=== PATIENT | female | born 1955 | race Caucasian/White ===

== ENCOUNTER 2016-03-02 10:25 | Inpatient (IN) ==
[2016-03-02] MEDS ORDERED: Aspirin 325 MG TABLET PO ONE (11:05)
--- NOTE | 2016-03-02 11:08 | Emergency Department Note ---
Disposition Clinical Impression: Diabetes, CKD (chronic kidney disease), Obesity, Hypothyroid, Hyponatremia, Chest pain Disposition: Admitted As Inpatient Condition: Fair Referrals: Mauro Dockery MD [Primary Care Provider] - Forms: ED Satisfaction Letter Time of Disposition: 13:18 General Adult HPI - General Chief complaint: ED Weakness Stated complaint: High blood sugar Time Seen by Provider: 03/02/16 10:57 Source: patient Mode of arrival: ambulatory Limitations: no limitations Nursing Notes Reviewed: Yes Vital Signs Reviewed: Yes - History of Present Illness HPI Narrative: This is a 61-year-old female who presents with high blood sugars and complaints of her hands drawling up. Patient states she feels blurry with her vision. Patient states she is having some mild chest pain. Patient states she is mostly concerned with her joints drawling up and having pain. Patient is not running a fever. Patient states she has CHF and she always swells but is not as bad as it usually is. Pain Scale: 5 - Related Data Home Medications Medication Instructions Recorded Confirmed Albuterol Neb [AccuNeb] 1.25 mg IH QID PRN 09/12/14 08/11/15 Cyclobenzaprine [Flexeril] 10 mg PO TID 09/12/14 08/11/15 Docusate [Colace] 100 mg PO TID 09/12/14 08/11/15 Doxepin [Sinequan] 50 mg PO HS 09/12/14 08/11/15 Gabapentin [Neurontin] 300 mg PO QID 09/12/14 08/11/15 Insulin ASPART [NovoLOG] 0 unit SQ QID 09/12/14 08/11/15 Insulin Glargine,Hum.rec.anlog 75 unit SQ BID 09/12/14 08/11/15 [Lantus Solostar] Levothyroxine Sodium 200 mcg PO QAM 09/12/14 08/11/15 Meclizine [Antivert] 25 mg PO TID PRN 09/12/14 08/11/15 Rosuvastatin Calcium [Crestor] 10 mg PO HS 09/12/14 08/11/15 Allopurinol [Zyloprim 100 MG] 300 mg PO DAILY 03/22/15 08/11/15 Citalopram Hydrobromide [Celexa] 40 mg PO QPM 03/22/15 08/11/15 ClonazePAM [Klonopin] 1 mg PO HS 03/22/15 08/11/15 DiphenhydraMINE [Benadryl] 25 mg PO TID 03/22/15 08/11/15 Exenatide Microspheres [Bydureon 2 mg SQ QWEEK 03/22/15 08/11/15 Pen] Fluticasone Propionate Nasal 50 mcg NS DAILY PRN 03/22/15 08/11/15 [Flonase] Lidocaine Patch [Lidoderm 5% patch] 1 patch TP DAILY PRN 03/22/15 08/11/15 Nitroglycerin [Nitrostat] 0.4 mg SL AD PRN 03/22/15 08/11/15 Omeprazole [PriLOSEC] 20 mg PO HS 03/22/15 08/11/15 Omeprazole [PriLOSEC] 40 mg PO QAM 03/22/15 08/11/15 Promethazine [Phenergan] 25 mg PO TID 03/22/15 08/11/15 Isosorbide MONOnitrate (24 HR) 30 mg PO QPM 03/23/15 08/11/15 [Imdur] Acetaminophen [Tylenol] 1,000 mg PO TID 06/21/15 08/11/15 Metoprolol XL (24 HR) Succ [Toprol 25 mg PO DAILY 07/31/15 08/11/15 Xl] Warfarin [Coumadin] 4 mg PO Q48H 07/31/15 08/11/15 Warfarin [Coumadin] 5 mg PO Q48H 07/31/15 08/11/15 Previous Rx's Medication Instructions Recorded Benzonatate [Tessalon] 200 mg PO TID PRN #30 capsule 08/06/15 GuaiFENesin ER [Mucinex] 600 mg PO BID PRN #40 tbbp.12hr 08/06/15 Magnesium Oxide [Mag-Ox] 400 mg PO BID #60 tablet 08/06/15 Tiotropium [Spiriva] 18 mcg IH 07 #30 capsule 08/06/15 Furosemide [Lasix] 40 mg PO DAILY #30 tablet 08/13/15 Allergies Allergy/AdvReac Type Severity Reaction Status Date / Time aspirin Allergy Hives Verified 08/11/15 14:42 cephalexin [From Keflex] Allergy Difficulty Verified 08/11/15 14:42 Breathing codeine Allergy Hypertensio Verified 08/11/15 14:42 n Cortisone Allergy See Verified 10/02/15 00:56 Comments hydrocortisone Allergy Hypertensio Verified 08/11/15 14:42 n ibuprofen Allergy Hives Verified 08/11/15 14:42 Iodinated Contrast Media - Allergy See Verified 08/11/15 14:42 Oral and Comments [Iodinated Contrast Media - IV Dye] lidocaine [From Xylocaine] Allergy See Verified 08/11/15 14:42 Comments loratadine [From Claritin] Allergy Hives Verified 08/11/15 14:42 methylprednisolone Allergy Hypertensio Verified 08/11/15 14:42 [From Solu-Medrol] n Penicillins Allergy See Verified 08/11/15 14:42 Comments prednisone Allergy Hypertensio Verified 08/11/15 14:42 n Procaine [From Novocain] Allergy See Verified 08/11/15 14:42 Comments propoxyphene [From Darvon] Allergy See Verified 08/11/15 14:42 Comments pseudoephedrine Allergy Hives Verified 08/11/15 14:42 [From Sudafed] ropinirole [From Requip] Allergy See Verified 08/11/15 14:42 Comments All systems ED: reviewed and negative except as stated. Constitutional: Reports: weakness. Denies: fever, chills, weight change Eyes: Denies: eye pain, eye discharge, vision change ENT ED: Denies: ear pain, throat pain, dental pain, hearing loss, epistaxis, congestion, dysphagia Cardiovascular: Reports: chest pain, edema. Denies: palpitations, dyspnea on exertion, syncope Respiratory: Denies: cough, dyspnea, wheezes, hemoptysis, stridor Gastrointestinal: Denies: abdominal pain, nausea, vomiting, diarrhea, constipation, hematemesis, melena, hematochezia Genitourinary: Denies: dysuria, frequency, hematuria, discharge Musculoskeletal: Reports: arthralgia (pt states her hands are drawling and she is having pain), myalgia. Denies: back pain, neck pain Integumentary: Denies: rash, abrasion, lesions Neurological: Denies: headache, numbness, paresthesias, confusion, abnormal gait , vertigo Psychiatric: Denies: anxiety, depression, suicidal thoughts, homicidal thoughts , auditory hallucinations, visual hallucinations Endocrine: Reports: other (blood sugars are elevated). Denies: fatigue Hematological/Lymphatic: Denies: easy bleeding, easy bruising Allergic/Immunologic: Denies: facial swelling, urticaria Past Medical History - Past Medical History Attestation: Yes The following information was validated with the patient. Source: patient Medical history: Reports: arthritis, CHF, COPD, DVT, diabetes, GERD, hyperlipidemia, hypertension, migraine, osteoporosis, renal disease, thyroid disease, other Surgical history: Reports: hysterectomy, other Psychiatric history: Reports: anxiety, depression [employer] history: Reports: bilateral 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 - Social History Smoking Status: Former smoker Smokeless Tobacco Status: No Alcohol use: Reports: rarely Drug use: Reports: none Physical Exam - General Limitations: no limitations General appearance: alert, in no apparent distress, obese - Head Head exam: atraumatic, normocephalic, normal inspection - Eye Eye exam: Present: normal appearance, PERRL, EOMI - ENT ENT exam: normal exam, normal oropharynx, mucous membranes moist - Expanded ENT Exam External ear exam: Present: normal external inspection Mouth exam: Present: normal external inspection Teeth exam: Present: normal inspection Throat exam: Present: normal inspection - Neck Neck exam: Present: normal inspection, full ROM, trachea midline - Chest Chest inspection: Present: normal inspection, symmetric chest wall rise - Respiratory Respiratory exam: Present: normal lung sounds bilaterally - Cardiovascular Cardiovascular exam: Present: regular rate, normal rhythm, normal heart sounds - Abdominal Exam Abdominal exam: Present: soft, Non-Tender. Absent: tenderness, distention, guarding, rebound, rigidity - Extremities Exam Extremities exam: Present: normal inspection, full ROM, pedal edema. Absent: tenderness - Expanded Upper Extremity Exam Shoulder exam: Present: normal inspection, full ROM Arm exam: Present: normal inspection, full ROM Elbow exam: Present: normal inspection, full ROM Forearm/Wrist exam: Present: normal inspection, full ROM Hand exam: Present: normal inspection, full ROM Vascular exam: Normal: capillary refill, radial pulse - Expanded Lower Extremity Exam Hip/Pelvis exam: Present: normal inspection, full ROM Upper leg exam: Present: normal inspection, full ROM Knee exam: Present: normal inspection, full ROM Lower leg exam: Present: normal inspection, full ROM, swelling Ankle exam: Present: normal inspection, full ROM, swelling Foot/toe exam: Present: normal inspection, full ROM, swelling Neurovascular/Tendon exam: Absent: motor deficit, sensory deficit, tendon deficit - Back Exam Back exam: Present: normal inspection, full ROM. Absent: tenderness - Neurological Exam Neurological exam: Present: alert, oriented X3 - Expanded Neurological Exam Patient oriented to: Present: person, place, time Coma Scale Eye Opening: Spontaneous Coma Scale Motor Response: Obeys Commands Coma Scale Verbal Response: Oriented Coma Scale Total: 15 - Psychiatric Psychiatric exam: Present: normal affect, normal mood - Skin Skin exam: Present: warm, dry, intact, normal color Course - Consultations Consultation #1: I spoke with Dr. Artemio reyes to admit. Time: 13:29 Vital Signs Temperature 97.4 F L 03/02/16 10:28 Pulse Rate 76 03/02/16 10:28 Respiratory Rate 16 03/02/16 10:28 Blood Pressure 104/65 03/02/16 10:28 O2 Sat by Pulse Oximetry 95 03/02/16 10:28 Temperature 97.4 F L 03/02/16 10:28 Pulse Rate 76 03/02/16 10:28 Respiratory Rate 16 03/02/16 10:28 Blood Pressure 104/65 03/02/16 10:28 O2 Sat by Pulse Oximetry 95 03/02/16 10:28 Oxygen Delivery Oxygen Delivery Room Air Medical Decision Making - Medical Records Medical records reviewed: Yes I reviewed the patient's medical records. - Lab Data Lab results reviewed: Yes I reviewed the patient's lab results. Result diagrams: 03/02/16 11:23 03/02/16 11:23 Lab Results 03/02/16 03/02/16 03/02/16 Range/Units 10:36 11:23 11:23 WBC 7.6 (4.3-11.1) K/mcL RBC 3.80 L (3.82-4.97) M/mcL Hgb 11.1 L (11.5-15.4) g/dL Hct 34.7 L (35.3-44.9) % MCV 91.3 (83.0-100.0) fL MCH 29.2 (28.0-33.3) pg MCHC 32.0 (31.6-35.5) g/dL RDW 16.1 H (11.5-14.5) % Plt Count 286 (140-400) K/mcL MPV 10.3 (9.4-12.4) fL Immature Gran % 0.7 (0-4) % Seg Neutrophils % 52.9 % Lymphocytes % 36.4 % Monocytes % 6.1 % Eosinophils % 3.2 % Basophils % 0.7 % Neutrophils # 4.0 (1.6-8.9) K/mcL Lymphocytes # 2.8 (0.6-4.6) K/mcL Monocytes # 0.5 (0.0-1.3) K/mcL Eosinophils # 0.2 (0.0-0.6) K/mcL Basophils # 0.1 (0.0-0.2) K/mcL PT 21.2 H (9.4-12.1) Seconds INR 1.9 APTT 39.2 H (26.0-36.0) Seconds Sodium (136-145) mEq/L Potassium (3.5-4.5) mEq/L Chloride (98-109) mEq/L Carbon Dioxide (19-29) mEq/L BUN (7-20) mg/dL Creatinine (0.57-1.11) mg/dL Est GFR ( Amer) (> 60) Est GFR (Non-Af Amer) (> 60) BUN/Creatinine Ratio (6-26) Glucose (70-99) mg/dL POC Glucose 432 H* (58-89) Calculated Osmolality (280-300) Calcium (8.6-10.8) mg/dL Total Bilirubin (0.2-1.2) mg/dL Direct Bilirubin (0.0-0.5) mg/dL Indirect Bilirubin (0.0-1.2) mg/dL AST (5-34) Units/L ALT (0-55) Units/L Alkaline Phosphatase (38-126) Units/L Troponin I (0-0.03) ng/mL B-Natriuretic Peptide (0-100) pg/mL Serum Total Protein (6.0-8.3) g/dL Albumin (3.5-5.0) g/dL Globulin (2.4-3.5) g/dL Albumin/Globulin Ratio (1.1-2.2) TSH (0.350-4.840) mcIU/mL 03/02/16 03/02/16 03/02/16 Range/Units 11:23 11:23 11:23 WBC (4.3-11.1) K/mcL RBC (3.82-4.97) M/mcL Hgb (11.5-15.4) g/dL Hct (35.3-44.9) % MCV (83.0-100.0) fL MCH (28.0-33.3) pg MCHC (31.6-35.5) g/dL RDW (11.5-14.5) % Plt Count (140-400) K/mcL MPV (9.4-12.4) fL Immature Gran % (0-4) % Seg Neutrophils % % Lymphocytes % % Monocytes % % Eosinophils % % Basophils % % Neutrophils # (1.6-8.9) K/mcL Lymphocytes # (0.6-4.6) K/mcL Monocytes # (0.0-1.3) K/mcL Eosinophils # (0.0-0.6) K/mcL Basophils # (0.0-0.2) K/mcL PT (9.4-12.1) Seconds INR APTT (26.0-36.0) Seconds Sodium 130 L (136-145) mEq/L Potassium 3.3 L (3.5-4.5) mEq/L Chloride 93 L (98-109) mEq/L Carbon Dioxide 20 (19-29) mEq/L BUN 33 H (7-20) mg/dL Creatinine 2.09 H (0.57-1.11) mg/dL Est GFR ( Amer) 29 L (> 60) Est GFR (Non-Af Amer) 24 L (> 60) BUN/Creatinine Ratio 16 (6-26) Glucose 256 H (70-99) mg/dL POC Glucose (58-89) Calculated Osmolality 286 (280-300) Calcium 9.8 (8.6-10.8) mg/dL Total Bilirubin 0.3 (0.2-1.2) mg/dL Direct Bilirubin 0.2 (0.0-0.5) mg/dL Indirect Bilirubin 0.1 (0.0-1.2) mg/dL AST 12 (5-34) Units/L ALT 11 (0-55) Units/L Alkaline Phosphatase 153 H (38-126) Units/L Troponin I 0.04 H* (0-0.03) ng/mL B-Natriuretic Peptide 83 (0-100) pg/mL Serum Total Protein 8.1 (6.0-8.3) g/dL Albumin 3.0 L (3.5-5.0) g/dL Globulin 5.1 H (2.4-3.5) g/dL Albumin/Globulin Ratio 0.6 L (1.1-2.2) TSH 47.101 H (0.350-4.840) mcIU/mL - Radiology Data Radiology results reviewed: Yes I reviewed the patient's radiology results. - EKG Data EKG #1 EKG attestation: Yes I reviewed and interpreted this EKG. EKG shows normal: sinus rhythm Rate: normal Rhythm: NSR [place]/QRS: normal, RBBB When compared to previous EKG there are: no significant changes Interpretation: nonspecific ST-T wave changes
[2016-03-02] MEDS ORDERED: 0.9 % Sodium Chloride 500 ML IV SCH (11:15)
[2016-03-02 11:30] LABS: Basophils # 0.1 K/mcL (0.0-0.2); Basophils % 0.7 %; Eosinophils # 0.2 K/mcL (0.0-0.6); Eosinophils % 3.2 %; Hematocrit 34.7 % (35.3-44.9); Hemoglobin 11.1 g/dL (11.5-15.4); Immature Granulocytes % 0.7 % (0-4); Lymphocytes # 2.8 K/mcL (0.6-4.6); Lymphocytes % 36.4 %; Mean Corpuscular Hemoglobin 29.2 pg (28.0-33.3); Mean Corpuscular Volume 91.3 fL (83.0-100.0); Mean Platelet Volume 10.3 fL (9.4-12.4); Monocytes # 0.5 K/mcL (0.0-1.3); Monocytes % 6.1 %; Platelet Count 286 K/mcL (140-400); Red Cell Distribution Width 16.1 % (11.5-14.5); Segmented Neutrophils % 52.9 %
[2016-03-02 11:38] LABS: INR 1.9; Prothrombin Time 21.2 Seconds (9.4-12.1)
[2016-03-02 11:41] LABS: Activated Partial Thrombo Time 39.2 Seconds (26.0-36.0)
[2016-03-02 11:45] LABS: Albumin/Globulin Ratio 0.6 (1.1-2.2); Bilirubin,Direct 0.2 mg/dL (0.0-0.5); Bilirubin,Indirect 0.1 mg/dL (0.0-1.2); Bilirubin,Total 0.3 mg/dL (0.2-1.2); Calcium 9.8 mg/dL (8.6-10.8); Globulin 5.1 g/dL (2.4-3.5); Potassium 3.3 mEq/L (3.5-4.5); Total Protein 8.1 g/dL (6.0-8.3)
[2016-03-02 12:06] LABS: Thyroid Stimulating Hormone 47.101 mcIU/mL (0.350-4.840)
[2016-03-02] MEDS ORDERED: Levothyroxine Sodium 200 MCG VIAL IVP ONE (15:02)
--- NOTE | 2016-03-02 15:02 | Internal Med History&Physical ---
<Lowell Boucher - Last Filed: 03/02/16 15:42> Date of Encounter: 03/02/16 Time of Encounter: 15:02 Assessment and Plan (1) Myxedema coma Current visit: Yes Status: Acute Suspected, possibly early stage of myxedema coma with decreased mentation, puffy face, edematous extremities, elevated TSH and low normal free T4/T3, hyponatremia, hypothermia, bradycardia and hypotension, cortisol level ordered, its cause can be recent UTI and/or cold weather, will start her on IV T4/T3 and IV solu cortef, check free T3/T4 level in AM and closely monitor her clinical course. (2) Elevated troponin Current visit: Yes Status: Acute Likely demand ischemia in a setting of myedema coma, no acute ischemic change in EKG, no active chest pain, will trend it and also obtain echo. (3) Hyponatremia Current visit: Yes Status: Acute Likely 2/2 myxedema coma, decreased free water excretion from decrease renal function (acute on CKD III), treat underlying cause, correct it slowly. (4) Acute worsening of stage 3 chronic kidney disease Current visit: Yes Status: Acute Likely 2/2 decreased renal blood flow from myxedema coma, treat underlying cause. Avoid nephrotoxic agent, hold lasix for now. (5) DM (diabetes mellitus), type 2, uncontrolled Current visit: Yes Status: Acute At home usually her sugar is between 300 to 500, last a1c was more than 10, will put her on high SSI and con't basal dosage of lantus. Qualifiers: Qualified Code(s): E11.65 - Type 2 diabetes mellitus with hyperglycemia (6) Hx of deep venous thrombosis Current visit: Yes Status: Acute Con't home dosage of coumadin, subtherapeutic, recheck in AM. (7) Morbid obesity with BMI of 60.0-69.9, adult Current visit: Yes Status: Acute Diet and lifestyle modification. (8) DVT prophylaxis Current visit: Yes Status: Acute Coumadin. (9) Hypokalemia Current visit: Yes Status: Acute Replace and check mag/potassium in AM. Internal Medicine - H&P: HPI Chief complaint: Elevated blood sugar level Admitted From: Emergency Dept History of present illness: Ms. Mars is a 61 year old female with hx of uncontrolled DM II, DVT on chronic coumadin therapy and CKD III, who was having elevated blood glucose level of more than 500 at home therefore her brought her to the ER. In the ER she was found to have hyponatremia of 130, SCr of 2.09, GFR 24 (worse than her baseline CKD III), elevated troponin and TSH of 47. She was bradycardic to mid 60s and hypotensive of 104/65, temp of 97.4. When I spoke to her in the room, he noticed her face was puffy and slightly she is edematous compared to few days ago, also decreased mentation and slow response that are unusual for her. Pt states that she had UTI 3 weeks ago and she finished abx but she still thinks that other infection is going in her body currently. Past Med Surg Social Fam HX - Past Medical History Medical history: arthritis, CHF, COPD, DVT, diabetes, GERD, hyperlipidemia, hypertension, migraine, osteoporosis, renal disease, thyroid disease, other Psychiatric history: anxiety, depression - Past Surgical History Surgical History: hysterectomy, other - Social History Smoking Status: Former smoker Smokeless Tobacco Status: No Alcohol use: rarely Drug use: none - Family History Mother Living Status: Hx Family Cardiac Disorders: Yes Hx Family Cancer: Yes Hx Family Endocrine Disorder: Yes Internal Medicine - H&P: Meds Albuterol Neb [AccuNeb] 1.25 mg IH QID PRN 09/12/14 [History] Cyclobenzaprine [Flexeril] 10 mg PO TID 09/12/14 [History] Docusate [Colace] 100 mg PO TID 09/12/14 [History] Doxepin [Sinequan] 50 mg PO HS 09/12/14 [History] Gabapentin [Neurontin] 300 mg PO QID 09/12/14 [History] Insulin ASPART [NovoLOG] 32 - 40 unit SQ QID 09/12/14 [History] Insulin Glargine,Hum.rec.anlog [Lantus Solostar] 75 unit SQ BID 09/12/14 [ History] Levothyroxine Sodium 200 mcg PO QAM 09/12/14 [History] Meclizine [Antivert] 25 mg PO TID PRN 09/12/14 [History] Rosuvastatin Calcium [Crestor] 10 mg PO HS 09/12/14 [History] Allopurinol [Zyloprim 100 MG] 300 mg PO DAILY 03/22/15 [History] Citalopram Hydrobromide [Celexa] 40 mg PO QPM 03/22/15 [History] ClonazePAM [Klonopin] 1 mg PO HS 03/22/15 [History] DiphenhydraMINE [Benadryl] 25 mg PO TID 03/22/15 [History] Exenatide Microspheres [Bydureon Pen] 2 mg SQ QWEEK 03/22/15 [History] Fluticasone Propionate Nasal [Flonase] 50 mcg NS DAILY PRN 03/22/15 [History] Lidocaine Patch [Lidoderm 5% patch] 1 patch TP DAILY PRN 03/22/15 [History] Nitroglycerin [Nitrostat] 0.4 mg SL AD PRN 03/22/15 [History] Omeprazole [PriLOSEC] 20 mg PO HS 03/22/15 [History] Omeprazole [PriLOSEC] 40 mg PO QAM 03/22/15 [History] Promethazine [Phenergan] 25 mg PO TID 03/22/15 [History] Isosorbide MONOnitrate (24 HR) [Imdur] 30 mg PO QPM 03/23/15 [History] Acetaminophen [Tylenol] 1,000 mg PO TID 06/21/15 [History] Metoprolol XL (24 HR) Succ [Toprol Xl] 25 mg PO DAILY 07/31/15 [History] Warfarin [Coumadin] 4 mg PO Q48H 07/31/15 [History] Warfarin [Coumadin] 5 mg PO Q48H 07/31/15 [History] GuaiFENesin ER [Mucinex] 600 mg PO BID PRN #40 tbbp.12hr 08/06/15 [Rx] Furosemide [Lasix] 20 mg PO QPM 03/02/16 [History] Furosemide [Lasix] 40 mg PO QAM 03/02/16 [History] Allergies aspirin Allergy (Verified 08/11/15 14:42) Hives cephalexin [From Keflex] Allergy (Verified 08/11/15 14:42) Difficulty Breathing codeine Allergy (Verified 08/11/15 14:42) Hypertension Cortisone Allergy (Verified 10/02/15 00:56) See Comments "made my arm tingle & didn't help my back pain" hydrocortisone Allergy (Verified 08/11/15 14:42) Hypertension ibuprofen Allergy (Verified 08/11/15 14:42) Hives Iodinated Contrast Media - Oral and [Iodinated Contrast Media - IV Dye] Allergy (Verified 08/11/15 14:42) See Comments lidocaine [From Xylocaine] Allergy (Verified 08/11/15 14:42) See Comments loratadine [From Claritin] Allergy (Verified 08/11/15 14:42) Hives methylprednisolone [From Solu-Medrol] Allergy (Verified 08/11/15 14:42) Hypertension Penicillins Allergy (Verified 08/11/15 14:42) See Comments prednisone Allergy (Verified 08/11/15 14:42) Hypertension Procaine [From Novocain] Allergy (Verified 08/11/15 14:42) See Comments propoxyphene [From Darvon] Allergy (Verified 08/11/15 14:42) See Comments pseudoephedrine [From Sudafed] Allergy (Verified 08/11/15 14:42) Hives ropinirole [From Requip] Allergy (Verified 08/11/15 14:42) See Comments All Systems PM: A 10-system review of systems was performed and is negative for pertinent findings except as documented above in the HPI. Review of systems: Pt denies BRICE, fever/chill, chest pain, SOB, productive cough, nausea/emesis, abdominal pain, constipation, diarrhea or dysuria. - Constitutional Vitals: Temp Pulse Resp BP Pulse Ox 97.4 F L 76 15 145/68 95 03/02/16 10:28 03/02/16 10:28 03/02/16 14:58 03/02/16 14:58 03/02/16 10:28 General appearance: Present: cooperative, mild distress, A&O X 3, answers questions appropriately - Head Head exam: Present: atraumatic, normocephalic - Eye Eye exam: Present: PERRL, conjuntiva pink, sclera anicteric Pupils: Present: PERRL - Neck Neck exam general surgery: Present: supple, trachea midline. Absent: lymphadenopathy - Respiratory Respiratory exam: Present: CTAB. Absent: accessory muscle use, rales, rhonchi, wheezes - Cardiovascular Cardiovascular exam: Present: RRR, +S1, +S2. Absent: diastolic murmur, gallop, rubs, systolic murmur - GI/Abdominal GI/Abdominal exam: Present: normal bowel sounds, soft, no peritoneal signs. Absent: distended, tenderness - Extremities Exam Extremities exam: Present: pedal edema (mild non-pitting b/l), warm, radial pulses palpable and symetrical. Absent: calf tenderness, cyanotic - Neurological Exam Neurological exam: Present: alert (somewhat), CN II-XII intact, oriented X3, no focal deficits. Absent: pronater drift, facial droop, speech deficit - Skin Skin exam: Present: dry, intact Internal Med - H&P Results - Labs CBC & Chem 7: 03/02/16 11:23 03/02/16 11:23 <Milan Ulloa - Last Filed: 03/03/16 14:42> Date of Encounter: 03/02/16 Internal Medicine - H&P: HPI History of present illness: Ms. Mars is a 61 year old female All Systems PM: A 10-system review of systems was performed and is negative for pertinent findings except as documented above in the HPI. - Constitutional Vitals: Temp Pulse Resp BP Pulse Ox 98.2 F 77 16 109/90 95 03/03/16 11:57 03/03/16 11:57 03/03/16 11:57 03/03/16 11:57 03/03/16 11:57 Internal Med - H&P Results - Labs CBC & Chem 7: 03/03/16 00:13 03/03/16 00:13 Labs: Short CBC 03/03/16 Range/Units 00:13 WBC 6.2 (4.3-11.1) K/mcL Hgb 10.4 L (11.5-15.4) g/dL Hct 31.6 L (35.3-44.9) % Plt Count 267 (140-400) K/mcL Neutrophils # 4.9 (1.6-8.9) K/mcL BMP 03/03/16 00:13 Sodium 129 L Potassium 4.9 H D Chloride 93 L Carbon Dioxide 23 BUN 32 H Creatinine 2.03 H Glucose 474 H Calcium 9.0 Cardiac Enzymes 03/03/16 Range/Units 00:13 Troponin I 0.03 (0-0.03) ng/mL Liver Function 03/03/16 Range/Units 00:13 Total Bilirubin 0.4 (0.2-1.2) mg/dL AST 11 (5-34) Units/L ALT 10 (0-55) Units/L Alkaline Phosphatase 122 (38-126) Units/L Albumin 2.5 L (3.5-5.0) g/dL Urine 03/03/16 Range/Units 11:55 Urine Color Yellow (Yellow) Urine Clarity Turbid A (Clear) Urine pH 6.0 (5.0-8.0) pH Units Ur Specific [place] 1.024 (1.010-1.025) Urine Protein >=300 H (Neg-Trace) mg/dL Urine Glucose (UA) >=1000 H (Normal) mg/dL - Attending Attestation I examined this patient and my medical decision-making was reviewed with the Resident Physician on 03/02/16. I agree with the documented findings, disposition and treatment plan as described except to the extent set forth below. Ms. Mars is a 61y/o female with history of insulin req DM and hypothyroidism brought to ED due to mental status changes and hyperglycemia. Blood sugars were markedly high at home and she did take larger amounts of coverage. She was evaluated in ED and was initially hyperglycemia but then became hypoglycemic. Labs were abnormal - especially thyroid function. She was admitted for evaluation and treatment. Currently she is alert but still seems somnolent. She denies pain or dyspnea. Fatigued. Exam Obese female. Alert. Comfortable Facial puffy Heart reg Lungs diminished but clear Abd soft and nontender Edema present I/P 1. Probable myxedema versus hypoglycemia - IV synthroid given. Continue monitor thyroid function and blood sugars 2. Diabetes 3. Morbid obesity Further diagnoses and plan as above.
[2016-03-02] MEDS ORDERED: Liothyronine Sodium 10 MCG/ML IVP ONE (15:06)
[2016-03-02] MEDS ORDERED: Naloxone 0.4 MG/ML INJ IVP PRN (15:11)
[2016-03-02 15:12] LABS: Triiodothyronine (T3) Free 1.54 pg/mL (1.71-3.71)
[2016-03-02] MEDS ORDERED: Levothyroxine Sodium 100 MCG VIAL IVP SCH (15:15)
[2016-03-02] MEDS ORDERED: Liothyronine Sodium 10 MCG/ML IVP SCH (15:15)
[2016-03-02] MEDS ORDERED: D5% in Water 1,000 ML IV PRN (15:35)
[2016-03-02] MEDS ORDERED: Dextrose Gel 15 GM PO PRN ×2 (15:35)
[2016-03-02] MEDS ORDERED: *HR* Dextrose 50 % in Water (Syg) 50 ML SYRINGE IVP PRN (15:35)
[2016-03-02] MEDS: Insulin LISPRO 300 UNITS/3 ML VIAL SQ SCH ×2 (17:35→19:42)
[2016-03-02] MEDS: Hydrocortisone Sodium Succ 100 MG/2 ML VIAL IVP SCH ×2 (17:35→19:29)
[2016-03-02] MEDS ORDERED: *HR* Warfarin 4 MG TABLET PO SCH (18:00)
[2016-03-02] MEDS: clonazePAM 1 MG TABLET PO SCH (19:39)
[2016-03-02] MEDS: Insulin DETEMIR 100 UNIT/ML X5UNITS SQ SCH (19:40)
[2016-03-03 00:27] LABS: Basophils % 0.3 %; Eosinophils % 0.5 %; Hematocrit 31.6 % (35.3-44.9); Hemoglobin 10.4 g/dL (11.5-15.4); Immature Granulocytes % 0.6 % (0-4); Lymphocytes # 1.1 K/mcL (0.6-4.6); Lymphocytes % 17.6 %; Mean Corpuscular HGB Conc 32.9 g/dL (31.6-35.5); Mean Corpuscular Hemoglobin 29.6 pg (28.0-33.3); Mean Platelet Volume 10.8 fL (9.4-12.4); Monocytes # 0.2 K/mcL (0.0-1.3); Monocytes % 2.9 %; Neutrophils # 4.9 K/mcL (1.6-8.9); Platelet Count 267 K/mcL (140-400); Red Blood Count 3.51 M/mcL (3.82-4.97); Red Cell Distribution Width 16.1 % (11.5-14.5); Segmented Neutrophils % 78.1 %
[2016-03-03 00:32] LABS: INR 2.1; Prothrombin Time 22.6 Seconds (9.4-12.1)
[2016-03-03] MEDS: Hydrocortisone Sodium Succ 100 MG/2 ML VIAL IVP SCH (00:36)
[2016-03-03 00:40] LABS: Hemoglobin A1C 11.8 %
[2016-03-03 00:58] LABS: Albumin 2.5 g/dL (3.5-5.0); Albumin/Globulin Ratio 0.6 (1.1-2.2); Bilirubin,Total 0.4 mg/dL (0.2-1.2); Globulin 4.5 g/dL (2.4-3.5); Potassium 4.9 mEq/L (3.5-4.5)
[2016-03-03 01:04] LABS: Triiodothyronine (T3) Free 2.12 pg/mL (1.71-3.71)
[2016-03-03] MEDS ORDERED: Albuterol Neb 1.25 MG/3 ML VIAL IH PRN (07:34)
--- NOTE | 2016-03-03 07:34 | Internal Med Progress Note ---
<Lowell Boucher - Last Filed: 03/03/16 10:04> Date of Encounter: 03/03/16 Time of Encounter: 07:34 - Assessment and plan (1) Myxedema coma Current Visit: Yes Status: Acute Assessment and plan: Suspected, possibly early stage of myxedema coma with decreased mentation, puffy face, edematous extremities, elevated TSH and low normal free T4/T3, hyponatremia, hypothermia, bradycardia and hypotension, T4/T3 levels are now normal, switch from IV to PO synthroid, stop T3 and solu-cortef, clinically significantly improved. (2) Elevated troponin Current Visit: Yes Status: Acute Assessment and plan: Likely demand ischemia in a setting of myedema coma, no acute ischemic change in EKG, no active chest pain, obtain echo. (3) Hyponatremia Current Visit: Yes Status: Acute Assessment and plan: Likely 2/2 myxedema coma, decreased free water excretion from decrease renal function (acute on CKD III), treat underlying cause, resume lasix home dosage, might help to diurese and improve kidney function tmw. (4) Acute worsening of stage 3 chronic kidney disease Current Visit: Yes Status: Acute Assessment and plan: Likely 2/2 decreased renal blood flow from myxedema coma, treat underlying cause. Avoid nephrotoxic agent, decreased free water excretion from decrease renal function (acute on CKD III), treat underlying cause, resume lasix home dosage, might help to diurese and improve kidney function tmw. (5) DM (diabetes mellitus), type 2, uncontrolled Current Visit: Yes Status: Acute Assessment and plan: Out of control, a1c was more than 10, con't basal and SSI but I added bolus before each meal as well. Qualifiers: Qualified Code(s): E11.65 - Type 2 diabetes mellitus with hyperglycemia (6) Hx of deep venous thrombosis Current Visit: Yes Status: Acute Assessment and plan: Con't coumadin. (7) Morbid obesity with BMI of 60.0-69.9, adult Current Visit: Yes Status: Acute Assessment and plan: Diet and lifestyle modification. (8) DVT prophylaxis Current Visit: Yes Status: Acute Assessment and plan: Coumadin. - Subjective Interval history: Pt seen and examined, clinically doing much better, not confused, improved puffiness of face, eating breakfast comfortably. - Constitutional Vitals: Temp Pulse Resp BP Pulse Ox 98.1 F 83 22 161/72 95 03/03/16 03:41 03/03/16 05:00 03/03/16 05:00 03/03/16 03:41 03/03/16 05:00 General appearance: Present: cooperative, A&O X 3, morbidly obese, no acute distress, answers questions appropriately - Head Head exam: Present: atraumatic, normocephalic - Eye Eye exam: Present: PERRL, conjuntiva pink, sclera anicteric Pupils: Present: PERRL - Neck Neck exam general surgery: Present: supple, trachea midline. Absent: lymphadenopathy - Respiratory Respiratory exam: Present: CTAB. Absent: accessory muscle use, rales, rhonchi, wheezes - Cardiovascular Cardiovascular exam: Present: RRR, +S1, +S2. Absent: diastolic murmur, gallop, rubs, systolic murmur - GI/Abdominal GI/Abdominal exam: Present: normal bowel sounds, soft, no peritoneal signs. Absent: distended, tenderness - Extremities Exam Extremities exam: Present: pedal edema (in b/l 1+ pitting), warm, radial pulses palpable and symetrical. Absent: calf tenderness, cyanotic - Neurological Exam Neurological exam: Present: CN II-XII intact, oriented X3, no focal deficits. Absent: pronater drift, facial droop, speech deficit - Skin Skin exam: Present: dry, intact Internal Medicine: Result - Labs CBC & Chem 7: 03/03/16 00:13 03/03/16 00:13 Labs: Short CBC 03/03/16 Range/Units 00:13 WBC 6.2 (4.3-11.1) K/mcL Hgb 10.4 L (11.5-15.4) g/dL Hct 31.6 L (35.3-44.9) % Plt Count 267 (140-400) K/mcL Neutrophils # 4.9 (1.6-8.9) K/mcL BMP 03/03/16 00:13 Sodium 129 L Potassium 4.9 H D Chloride 93 L Carbon Dioxide 23 BUN 32 H Creatinine 2.03 H Glucose 474 H Calcium 9.0 Cardiac Enzymes 03/03/16 Range/Units 00:13 Troponin I 0.03 (0-0.03) ng/mL Liver Function 03/03/16 Range/Units 00:13 Total Bilirubin 0.4 (0.2-1.2) mg/dL AST 11 (5-34) Units/L ALT 10 (0-55) Units/L Alkaline Phosphatase 122 (38-126) Units/L Albumin 2.5 L (3.5-5.0) g/dL - ABG Interpretation ABG results: PT/INR, D-dimer PT 22.6 Seconds (9.4-12.1) H 03/03/16 00:13 Consult Discharge Plan - Plan Referrals: Mauro Dockery MD [Primary Care Provider] - <Milan Ulloa - Last Filed: 03/03/16 16:16> Date of Encounter: 03/03/16 - Assessment and plan (1) Myxedema coma Current Visit: Yes Status: Suspected (2) Hyponatremia Current Visit: Yes Status: Acute Assessment and plan: Hold IV fluids for now. Calc OSM is normal. (3) CKD (chronic kidney disease) Current Visit: Yes Status: Chronic Qualifiers: Chronic kidney disease stage: stage 3 (moderate) Qualified Code(s): N18.3 - Chronic kidney disease, stage 3 (moderate) (4) Hypertension Current Visit: Yes Status: Chronic Qualifiers: Hypertension type: essential hypertension Qualified Code(s): I10 - Essential (primary) hypertension (5) DM (diabetes mellitus), type 2 Current Visit: No Status: Chronic Qualifiers: Diabetes mellitus complication status: with hyperglycemia Diabetes mellitus remote computer terminal operator insulin use: with jail use Qualified Code(s): E11.65 - Type 2 diabetes mellitus with hyperglycemia; Z79.4 - remote computer terminal operator (current) use of insulin (6) Morbid obesity Current Visit: No Status: Chronic Qualifiers: Obesity type: due to excess calories Qualified Code(s): E66.01 - Morbid ( severe) obesity due to excess calories - Constitutional Vitals: Temp Pulse Resp BP Pulse Ox 98.2 F 77 16 109/90 95 03/03/16 11:57 03/03/16 11:57 03/03/16 11:57 03/03/16 11:57 03/03/16 11:57 Internal Medicine: Result - Labs CBC & Chem 7: 03/03/16 00:13 03/03/16 00:13 Labs: Short CBC 03/03/16 Range/Units 00:13 WBC 6.2 (4.3-11.1) K/mcL Hgb 10.4 L (11.5-15.4) g/dL Hct 31.6 L (35.3-44.9) % Plt Count 267 (140-400) K/mcL Neutrophils # 4.9 (1.6-8.9) K/mcL BMP 03/03/16 00:13 Sodium 129 L Potassium 4.9 H D Chloride 93 L Carbon Dioxide 23 BUN 32 H Creatinine 2.03 H Glucose 474 H Calcium 9.0 Cardiac Enzymes 03/03/16 Range/Units 00:13 Troponin I 0.03 (0-0.03) ng/mL Liver Function 03/03/16 Range/Units 00:13 Total Bilirubin 0.4 (0.2-1.2) mg/dL AST 11 (5-34) Units/L ALT 10 (0-55) Units/L Alkaline Phosphatase 122 (38-126) Units/L Albumin 2.5 L (3.5-5.0) g/dL Urine 03/03/16 Range/Units 11:55 Urine Color Yellow (Yellow) Urine Clarity Turbid A (Clear) Urine pH 6.0 (5.0-8.0) pH Units Ur Specific Norris 1.024 (1.010-1.025) Urine Protein >=300 H (Neg-Trace) mg/dL Urine Glucose (UA) >=1000 H (Normal) mg/dL - ABG Interpretation ABG results: PT/INR, D-dimer PT 22.6 Seconds (9.4-12.1) H 03/03/16 00:13 - Attending Attestation I examined this patient and my medical decision-making was reviewed with the Resident Physician on 03/03/16. I agree with the documented findings, disposition and treatment plan as described except to the extent set forth below. Ms. Mars is currently admitted for presumed myxedema. She remains high risk due to poor thyroid function, fluctuating blood sugars and mental status. Ms. Mars is more alert this AM. Her free T4 has normalized. She denies CP or SOB. Bowels OK. No changes in speech like yesterday. Exam Alert. Comfortable Heart reg No wheeze Edema present Current labs reviewed I/P 1. Myxedema coma - presumptive. Has improved with IV synthroid. Will continue PO now at higher dose. Transfer out of . 2. Insulin requiring DM with hyperglycemia and hypoglycemia 3. Morbid obesity Further diagnoses and plan as above.
[2016-03-03] MEDS: Insulin LISPRO 300 UNITS/3 ML VIAL SQ SCH ×7 (08:04→21:22)
[2016-03-03] MEDS: Metoprolol XL (24 HR) Succ 25 MG TAB.ER.24H PO SCH (08:09)
[2016-03-03] MEDS: Insulin DETEMIR 100 UNIT/ML X5UNITS SQ SCH ×2 (08:24→21:22)
[2016-03-03] MEDS ORDERED: Levothyroxine Sodium 100 MCG VIAL IVP SCH (09:00)
[2016-03-03] MEDS: Furosemide 40 MG TABLET PO SCH (11:11)
[2016-03-03] MEDS ORDERED: Perflutren Lipid Microsphere 1.3 ML in 0.9 % Sodium Chloride 8.7 ML IVP ONE (11:19)
[2016-03-03] MEDS ORDERED: Perflutren Lipid Microsphere 2 ML VIAL ONE (11:22)
[2016-03-03 12:08] LABS: Bilirubin,Urine Negative (Negative); Blood,Urine Moderate (Negative); Clarity,Urine Turbid (Clear); Color,Urine Yellow (Yellow); Glucose,Urine (UA) >=1000 mg/dL (Normal); Ketones,Urine Negative (Negative); Leukocyte Esterase,Urine Moderate (Negative); Nitrite,Urine Negative (Negative); Protein,Urine >=300 mg/dL (Neg-Trace); Specific Gravity,Urine 1.024 (1.010-1.025); Urobilinogen,Urine Normal (Normal)
[2016-03-03 12:10] LABS: Hyaline Casts,Urine Few per lpf (None-Few); RBC,Urine 15-30 per hpf (0-3); Squamous Epithelial Cell,Urine Many per lpf (None-Few); WBC,Urine TNTC per hpf (0-3)
[2016-03-03 12:27] LABS: Bacteria,Urine Many per hpf (None-Few)
[2016-03-03 12:28] LABS: Mucus,Urine Present (Few)
--- NOTE | 2016-03-03 13:21 | ECHO - Doppler Report ---
Echo with Imaging Enhancement Agent Name: Jenny Mars Date of Study: 03/03/2016 Date: 1955 Ht: 66.0 in Medical Record#: [id number] Age: 61 Wt: 323.0 lb Gender: Female BSA: 2.45 Order #: [id number] Location: [facility] Room #: 2n06 Reading Physician: Sumeet Rey DO, LI VALENCIA FASNC Display Carver: Deacon Treadwell RDCS Ordering Physician: Lowell Boucher DO Primary Physician: None Indications: Congestive heart failure, Pericarditis/Pericardial Effusion/Tamponade Impressions: LVEF 60-65%. Normal LV chamber size and function. Mild concentric left ventricular hypertrophy. Mild left ventricular diastolic dysfunction. Grossly dilated right ventricle with normal function. Moderately biatrial enlargement. No evidence of pulmonary hypertension identified. RVSP not well obtained and could be underestimated. No significant valvular dysfunction. No significant pericardial effusion. Left Ventricular Wall Motion: Rest Echo Findings All wall segments showed normal motion. Findings: Study Quality * Technically sub-optimal due to body habitus. ECG Findings * Normal sinus rhythm. Left Ventricle * LVEF 60-65%. * Normal LV chamber size and function. * Mild concentric left ventricular hypertrophy. * Mild left ventricular diastolic dysfunction. Right Ventricle * Grossly dilated right ventricle with normal function. Left Atrium * Moderately dilated left atrium. Right Atrium * Moderately dilated right atrium. Interatrial Septum * Interatrial septum not well evaluated. Aortic Valve * Trileaflet aortic valve with normal function. * No aortic regurgitation. * No aortic stenosis. Mitral Valve * Mild mitral annular calcification * Trace mitral regurgitation. * No mitral stenosis. Tricuspid Valve * Normal tricuspid valve structure and function. * Trace tricuspid regurgitation. * No evidence of pulmonary hypertension identified. RVSP not well obtained and could be underestimated. Pulmonic Valve * Pulmonic valve not well visualized. * No pulmonic regurgitation. Aorta * Normally sized aortic root. Pericardium * The pericardium appears normal. IVC * The IVC is not well evaluated. Pulmonary Artery * Normal visualized portions of the main pulmonary artery. History Hypertension Diabetes Hypercholesteremia Congestive Heart Failure 07/16/15 a Previous Echo was performed. Contrast: Definity 1.3 ml in 8.7 ml of saline 2 ml. Measurements: BP: 161/ 72 2D Normal Values RVIDd: 3.20 cm <2.7 cm IVSd: 1.40 cm 0.6 - 1.0 cm LVIDd: 4.40 cm 3.7 - 5.6 cm LVPWd: 1.00 cm 0.6 - 1.1 cm LVIDs: 2.90 cm 1.5 - 3.6 cm AO: 2.90 cm < 4.0 cm LA: 3.50 cm 2.0 - 4.0cm %FS: 34.10 cm >25 % LA volume: 52 Mitral Valve Peak E:.75 m/sec Peak A:1.32 m/sec E/A Ratio:0.6 Peak E' Lat Tahir:3.41 cm/s Peak E' Med Tahir:3.22 cm/s E/E' Lat Ratio:21.9 E/E' Med Ratio:23.2 Tricuspid Valve TV Regurg Peak Grad: 19.00mmHg TV Regurg Peak Tahir: 2.16m/sec Updated by Sumeet Rey DO, FACFrancy, [place] JEFFERSON on 03/03/2016 1:17:44 PM electronically signed on 03/03/2016 1:18:27 PM with status of Final Wall Motion Mata: 1=Normal, 2=Hypokinesis, 3=Akinesis, 4=Dyskinesis, 5=Aneurysmal, 6=Hyperkinetic, X=Not Visualized (Blank)=Missing
[2016-03-03] MEDS ORDERED: Isosorbide MONOnitrate (24 HR) 30 MG TAB.ER.24H PO SCH (18:00)
[2016-03-03] MEDS ORDERED: *HR* Warfarin 5 MG TABLET PO SCH (18:00)
[2016-03-03] MEDS ORDERED: Furosemide 20 MG TABLET PO SCH (18:00)
[2016-03-03] MEDS: clonazePAM 1 MG TABLET PO SCH (19:24)
[2016-03-04 07:54] VITALS: BP 150/79
[2016-03-04] MEDS: Furosemide 40 MG TABLET PO SCH (08:18)
[2016-03-04] MEDS: Insulin LISPRO 300 UNITS/3 ML VIAL SQ SCH ×4 (08:19→11:35)
[2016-03-04] MEDS: Metoprolol XL (24 HR) Succ 25 MG TAB.ER.24H PO SCH (08:19)
[2016-03-04] MEDS: Insulin DETEMIR 100 UNIT/ML X5UNITS SQ SCH (08:19)
--- NOTE | 2016-03-04 13:16 | Discharge Summary ---
<Lowell Boucher - Last Filed: 03/04/16 13:02> Date of Encounter: 03/04/16 Time of Encounter: 13:03 - Discharge Diagnosis (1) Myxedema coma Priority: Primary Status: Suspected (2) Elevated troponin Priority: Secondary Status: Acute (3) Hyponatremia Priority: Secondary Status: Acute (4) Acute worsening of stage 3 chronic kidney disease Priority: Secondary Status: Acute (5) DM (diabetes mellitus), type 2, uncontrolled Priority: Secondary Status: Acute Qualifiers: Qualified Code(s): E11.65 - Type 2 diabetes mellitus with hyperglycemia (6) Hx of deep venous thrombosis Priority: Secondary Status: Acute (7) Morbid obesity with BMI of 60.0-69.9, adult Priority: Secondary Status: Acute (8) DVT prophylaxis Priority: Secondary Status: Acute - Discharge Medications Prescriptions: Ciprofloxacin [Cipro] 500 mg PO BID 10 Days Levothyroxine [Synthroid] 250 mcg PO DAILY #30 tablet Home Medications: Albuterol Neb [AccuNeb] 1.25 mg IH QID PRN 09/12/14 [History] Cyclobenzaprine [Flexeril] 10 mg PO TID 09/12/14 [History] Docusate [Colace] 100 mg PO TID 09/12/14 [History] Doxepin [Sinequan] 50 mg PO HS 09/12/14 [History] Gabapentin [Neurontin] 300 mg PO QID 09/12/14 [History] Insulin ASPART [NovoLOG] 32 - 40 unit SQ QID 09/12/14 [History] Insulin Glargine,Hum.rec.anlog [Lantus Solostar] 75 unit SQ BID 09/12/14 [ History] Meclizine [Antivert] 25 mg PO TID PRN 09/12/14 [History] Rosuvastatin Calcium [Crestor] 10 mg PO HS 09/12/14 [History] Allopurinol [Zyloprim 100 MG] 300 mg PO DAILY 03/22/15 [History] Citalopram Hydrobromide [Celexa] 40 mg PO QPM 03/22/15 [History] ClonazePAM [Klonopin] 1 mg PO HS 03/22/15 [History] DiphenhydraMINE [Benadryl] 25 mg PO TID 03/22/15 [History] Exenatide Microspheres [Bydureon Pen] 2 mg SQ QWEEK 03/22/15 [History] Fluticasone Propionate Nasal [Flonase] 50 mcg NS DAILY PRN 03/22/15 [History] Lidocaine Patch [Lidoderm 5% patch] 1 patch TP DAILY PRN 03/22/15 [History] Nitroglycerin [Nitrostat] 0.4 mg SL AD PRN 03/22/15 [History] Omeprazole [PriLOSEC] 20 mg PO HS 03/22/15 [History] Omeprazole [PriLOSEC] 40 mg PO QAM 03/22/15 [History] Promethazine [Phenergan] 25 mg PO TID 03/22/15 [History] Isosorbide MONOnitrate (24 HR) [Imdur] 30 mg PO QPM 03/23/15 [History] Acetaminophen [Tylenol] 1,000 mg PO TID 06/21/15 [History] Metoprolol XL (24 HR) Succ [Toprol Xl] 25 mg PO DAILY 07/31/15 [History] Warfarin [Coumadin] 4 mg PO Q48H 07/31/15 [History] Warfarin [Coumadin] 5 mg PO Q48H 07/31/15 [History] GuaiFENesin ER [Mucinex] 600 mg PO BID PRN #40 tbbp.12hr 08/06/15 [Rx] Furosemide [Lasix] 20 mg PO QPM 03/02/16 [History] Furosemide [Lasix] 40 mg PO QAM 03/02/16 [History] Ciprofloxacin [Cipro] 500 mg PO BID 10 Days 03/04/16 [Rx] Levothyroxine [Synthroid] 250 mcg PO DAILY #30 tablet 03/04/16 [Rx] Allergies/Adverse Reactions: Allergies aspirin Allergy (Verified 08/11/15 14:42) Hives cephalexin [From Keflex] Allergy (Verified 08/11/15 14:42) Difficulty Breathing codeine Allergy (Verified 08/11/15 14:42) Hypertension Cortisone Allergy (Verified 10/02/15 00:56) See Comments "made my arm tingle & didn't help my back pain" hydrocortisone Allergy (Verified 08/11/15 14:42) Hypertension ibuprofen Allergy (Verified 08/11/15 14:42) Hives Iodinated Contrast Media - Oral and [Iodinated Contrast Media - IV Dye] Allergy (Verified 08/11/15 14:42) See Comments lidocaine [From Xylocaine] Allergy (Verified 08/11/15 14:42) See Comments loratadine [From Claritin] Allergy (Verified 08/11/15 14:42) Hives methylprednisolone [From Solu-Medrol] Allergy (Verified 08/11/15 14:42) Hypertension Penicillins Allergy (Verified 08/11/15 14:42) See Comments prednisone Allergy (Verified 08/11/15 14:42) Hypertension Procaine [From Novocain] Allergy (Verified 08/11/15 14:42) See Comments propoxyphene [From Darvon] Allergy (Verified 08/11/15 14:42) See Comments pseudoephedrine [From Sudafed] Allergy (Verified 08/11/15 14:42) Hives ropinirole [From Requip] Allergy (Verified 08/11/15 14:42) See Comments Date of admission: 03/02/16 18:06 Primary care physician: Mauro Dockery MD Discharging clinician: Lowell Boucher Anticipated date of discharge: 03/04/16 - Patient Status Disposition: Home, Self-Care Condition: Fair Functional capacity at discharge: uses cane/walker (fall precaution) Overall status at discharge: patient is progressing back to baseline - Discharge Instructions Instructions: Atrial Fibrillation (DC), Atrial Fibrillation (GEN), Hypothyroidism (DC), Diabetic Hyperglycemia (DC) Follow Up With: Mauro Dockery MD [Primary Care Provider] - 03/11/16 1:15 pm (F/u for hospital d/c f/u, uncontrolled DM II, hypothyroidism (check the labs) and review med lists.) Will Del Castillo DO [Partnered Physician] - 03/21/16 3:55 pm () - Diet and Activity Activity: resume usual activities as tolerated Diet: diabetic diet, low fat, low cholesterol, low salt diet Hospital course: Ms. Mars is a 61 year old female w/ hx of DM II, hypothyroidism and CKD IV, brought from home to ER because elevated blood sugar level. Per , pt face looked puffier, swollen extremities, decreased mental status, in the ER she was found to have TSH more than 40, low T4/T3, admitted for myxedema coma, started on IV T4 and po T3 along with stress dose steroid. T4/T3 level improved the next day and clinically she improved as well, urine culture was positive for gram negative ciaran, recent urine culture was positive to klebsillela and it was sensitive to cipro, therefore she will be d/c to home with cipro and increased dosage of synthroid, she will closely f/u with her PCP as outpt. - Time Spent with Patient Total time spent providing and/or coordinating discharge services: - Constitutional Vitals: Temp Pulse Resp BP Pulse Ox 98 F 76 16 150/79 96 03/04/16 07:48 03/04/16 07:48 03/04/16 07:48 03/04/16 07:48 03/04/16 07:48 General appearance: Present: cooperative, A&O X 3, morbidly obese, no acute distress, answers questions appropriately - Head Head exam: Present: atraumatic, normocephalic - Eye Eye exam: Present: PERRL, conjuntiva pink, sclera anicteric Pupils: Present: PERRL - Neck Neck exam general surgery: Present: supple, trachea midline. Absent: lymphadenopathy - Respiratory Respiratory exam: Present: CTAB. Absent: accessory muscle use, rales, rhonchi, wheezes - Cardiovascular Cardiovascular exam: Present: RRR, +S1, +S2. Absent: diastolic murmur, gallop, rubs, systolic murmur - GI/Abdominal GI/Abdominal exam: Present: normal bowel sounds, soft, no peritoneal signs. Absent: distended, tenderness - Extremities Exam Extremities exam: Present: pedal edema (mild non-pitting b/l), warm, radial pulses palpable and symetrical. Absent: calf tenderness, cyanotic - Neurological Exam Neurological exam: Present: CN II-XII intact, oriented X3, no focal deficits. Absent: pronater drift, facial droop, speech deficit - Skin Skin exam: Present: dry, intact <Milan Ulloa - Last Filed: 03/04/16 16:24> Date of Encounter: 03/04/16 - Discharge Diagnosis (1) Myxedema coma Status: Suspected (2) Hyponatremia Priority: Secondary Status: Acute (3) CKD (chronic kidney disease) Priority: Secondary Status: Chronic Qualifiers: Chronic kidney disease stage: stage 3 (moderate) Qualified Code(s): N18.3 - Chronic kidney disease, stage 3 (moderate) (4) Hypertension Priority: Secondary Status: Chronic Qualifiers: Hypertension type: essential hypertension Qualified Code(s): I10 - Essential (primary) hypertension (5) DM (diabetes mellitus), type 2 Priority: Secondary Status: Chronic Qualifiers: Diabetes mellitus complication status: with hyperglycemia Diabetes mellitus usp insulin use: with principal network architect use Qualified Code(s): E11.65 - Type 2 diabetes mellitus with hyperglycemia; Z79.4 - interventional radiology rn (current) use of insulin (6) Morbid obesity Status: Chronic Qualifiers: Obesity type: due to excess calories Qualified Code(s): E66.01 - Morbid ( severe) obesity due to excess calories Date of admission: 03/02/16 18:06 Primary care physician: Mauro Dockery MD Hospital course: Ms. Mars is a 61 year old female - Time Spent with Patient Total time spent providing and/or coordinating discharge services: 40min - Constitutional Vitals: Temp Pulse Resp BP Pulse Ox 98 F 76 16 150/79 96 03/04/16 07:48 03/04/16 07:48 03/04/16 07:48 03/04/16 07:48 03/04/16 07:48 - Attending Attestation I examined this patient and my medical decision-making was reviewed with the Resident Physician on 03/04/16. I agree with the documented findings, disposition and treatment plan as described except to the extent set forth below. Ms. Mars is feeling OK at this time. Her urine is positive for UTI. Her blood sugars are fairly controlled at this time. Exam Alert. Comfortable Heart reg lungs clear Plan D/C today. Follow up with PCP. Synthroid dose adjusted.
--- NOTE | 2016-03-04 17:25 | Electrocardiograph Report ---
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
== END 2016-03-04 14:48 | disposition home or self-care (01) | DRG 52 ==
LOC: EMEROO 10:25 → 2NNU 10:25 → SUATTDRO 18:06 → 2NENU 03-03 22:30
PROVIDERS: ADMIT Internal Medicine; ATTEND Internal Medicine

== ENCOUNTER 2016-05-06 13:09 | Observation (INO) ==
--- NOTE | 2016-05-06 13:23 | Emergency Department Note ---
Disposition Clinical Impression: Subtherapeutic international normalized ratio (INR) Chest pain Qualifiers: Chest pain type: unspecified Qualified Code(s): R07.9 - Chest pain, unspecified Disposition: Admitted As Inpatient Condition: Undetermined Forms: ED Satisfaction Letter Time of Disposition: 14:32 Chest Pain HPI - General Chief Complaint: ED Chest Pain Stated Complaint: Chest pain x 4 days Time Seen by Provider: 05/06/16 13:11 Source: patient, EMS Mode of arrival: EMS Limitations: no limitations Vital Signs Reviewed: Yes Nursing Notes Reviewed: Yes - History of Present Illness HPI Narrative: 61-year-old female with history of diabetes, hypertension, hyperlipidemia arrives [facility] emergency department complaining of left- sided chest pain for the past 4 days. The patient states she has associated dyspnea with this. The patient does have a history of COPD which she wears oxygen at 3 L chronically. She states that her O2 sat is 98% she has not been utilizing oxygen as much as she should. The patient denies any other complaints at this time. The patient does have a history of DVT and PE were she does take Coumadin on a regular basis with her last INR roughly 5 days ago but is unsure of the INR number. The patient denies any other complaints at this time. She is GCS 15 units are questions appropriately. Patient received one nitroglycerin prior to arrival by EMS which did help the patient's chest pain. The patient is allergic to aspirin so she did not receive any aspirin. The patient did have some associated nausea she was she was given 4 mg IV Zofran. Pt complaint: chest pain Onset (ago): day(s) (4) Duration: constant Onset: during rest Pain Location: substernal, left chest Severity: moderate Severity scale (1-10): 8 Quality: tightness, heaviness Pain Radiation: LUE Improves with: nitroglycerin Worsens with: nothing Associated symptoms: Reports: dyspnea Treatments prior to arrival chest pain: nitroglycerin, oxygen - Related Data On Oral Contraceptives: No Home Medications Medication Instructions Recorded Confirmed Albuterol Neb [AccuNeb] 1.25 mg IH QID PRN 09/12/14 03/02/16 Cyclobenzaprine [Flexeril] 10 mg PO TID 09/12/14 03/02/16 Docusate [Colace] 100 mg PO TID 09/12/14 03/02/16 Doxepin [Sinequan] 50 mg PO HS 09/12/14 03/02/16 Gabapentin [Neurontin] 300 mg PO QID 09/12/14 03/02/16 Insulin ASPART [NovoLOG] 32 - 40 unit SQ QID 09/12/14 03/02/16 Insulin Glargine,Hum.rec.anlog 75 unit SQ BID 09/12/14 03/02/16 [Lantus Solostar] Meclizine [Antivert] 25 mg PO TID PRN 09/12/14 03/02/16 Rosuvastatin Calcium [Crestor] 10 mg PO HS 09/12/14 03/02/16 Allopurinol [Zyloprim 100 MG] 300 mg PO DAILY 03/22/15 03/02/16 Citalopram Hydrobromide [Celexa] 40 mg PO QPM 03/22/15 03/02/16 ClonazePAM [Klonopin] 1 mg PO HS 03/22/15 03/02/16 DiphenhydraMINE [Benadryl] 25 mg PO TID 03/22/15 03/02/16 Exenatide Microspheres [Bydureon 2 mg SQ QWEEK 03/22/15 03/02/16 Pen] Fluticasone Propionate Nasal 50 mcg NS DAILY PRN 03/22/15 03/02/16 [Flonase] Lidocaine Patch [Lidoderm 5% patch] 1 patch TP DAILY PRN 03/22/15 03/02/16 Nitroglycerin [Nitrostat] 0.4 mg SL AD PRN 03/22/15 03/02/16 Omeprazole [PriLOSEC] 20 mg PO HS 03/22/15 03/02/16 Omeprazole [PriLOSEC] 40 mg PO QAM 03/22/15 03/02/16 Promethazine [Phenergan] 25 mg PO TID 03/22/15 03/02/16 Isosorbide MONOnitrate (24 HR) 30 mg PO QPM 03/23/15 03/02/16 [Imdur] Acetaminophen [Tylenol] 1,000 mg PO TID 06/21/15 03/02/16 Metoprolol XL (24 HR) Succ [Toprol 25 mg PO DAILY 07/31/15 03/02/16 Xl] Warfarin [Coumadin] 4 mg PO Q48H 07/31/15 03/02/16 Warfarin [Coumadin] 5 mg PO Q48H 07/31/15 03/02/16 Furosemide [Lasix] 20 mg PO QPM 03/02/16 03/02/16 Furosemide [Lasix] 40 mg PO QAM 03/02/16 03/02/16 Previous Rx's Medication Instructions Recorded GuaiFENesin ER [Mucinex] 600 mg PO BID PRN #40 tbbp.12hr 08/06/15 Ciprofloxacin [Cipro] 500 mg PO BID 10 Days 03/04/16 Levothyroxine [Synthroid] 250 mcg PO DAILY #30 tablet 03/04/16 Ondansetron ODT [Zofran ODT] 4 mg SL Q6HR #15 tab.rapdis 03/18/16 Allergies Allergy/AdvReac Type Severity Reaction Status Date / Time aspirin Allergy Hives Verified 08/11/15 14:42 cephalexin [From Keflex] Allergy Difficulty Verified 08/11/15 14:42 Breathing codeine Allergy Hypertensio Verified 08/11/15 14:42 n Cortisone Allergy See Verified 10/02/15 00:56 Comments hydrocortisone Allergy Hypertensio Verified 08/11/15 14:42 n ibuprofen Allergy Hives Verified 08/11/15 14:42 Iodinated Contrast Media - Allergy See Verified 08/11/15 14:42 Oral and Comments [Iodinated Contrast Media - IV Dye] lidocaine [From Xylocaine] Allergy See Verified 08/11/15 14:42 Comments loratadine [From Claritin] Allergy Hives Verified 08/11/15 14:42 methylprednisolone Allergy Hypertensio Verified 08/11/15 14:42 [From Solu-Medrol] n Penicillins Allergy See Verified 08/11/15 14:42 Comments prednisone Allergy Hypertensio Verified 08/11/15 14:42 n Procaine [From Novocain] Allergy See Verified 08/11/15 14:42 Comments propoxyphene [From Darvon] Allergy See Verified 08/11/15 14:42 Comments pseudoephedrine Allergy Hives Verified 08/11/15 14:42 [From Sudafed] ropinirole [From Requip] Allergy See Verified 08/11/15 14:42 Comments Review of Systems: Review of Systems Constitutional: Denies fevers, chills, night sweats HEENT: Denies headache, blurry vision, \ Respiratory: Denies cough, sputum change, hemoptysis, admits to dyspnea Cardiac: Admits to chest pain, pressure, denies palpitations, admits to dyspnea on exertion, pedal edema Gastrointestinal: Denies abdominal pain, changes in bowel habits, vomiting, admits to nausea, Genitourinary: Denies dysuria, hematuria, nocturia, change in frequency, urgency, incontinence Neurologic: Denies headaches, dizziness, syncope, focalized weakness, paraesthesias, weakness Musculoskeletal: Denies back pain, joint pain, myalgias All systems ED: reviewed and negative except as stated. Chest Pain PMH - Past Medical History Medical history: Reports: arthritis, CHF, COPD, DVT, diabetes, GERD, hyperlipidemia, hypertension, migraine, osteoporosis, renal disease, thyroid disease, other Surgical history: Reports: hysterectomy, other Psychiatric history: Reports: anxiety, depression [employer] history: Reports: bilateral 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 - Social History Smoking Status: Former smoker Alcohol use: Reports: none Drug use: Reports: none Physical Exam Physical Exam: General: Patient alert, no acute distress, not lethargic HEENT: Head normal inspection, atraumatic, PERRLA, oropharynx grossly intact and normal, trachea midline, no JVD Chest: Nontraumatic, nontender, normal chest rise CV: RRR with no murmurs, rubs, gallops Respiratory: Coarse breath sounds auscultation without any wheezing, rales, rhonchi. Abdomen: Normal inspection, Normal bowel sounds 4 quadrants, nontender to palpation : Patient deferred Extremities: Normal inspection, full range of motion, appropriate pulses, capillary refill under 2 seconds Neurological: Patient alert and oriented 3, cranial nerves II through XII grossly intact, GCS 15 Skin: Warm, intact, no rashes noted - General Limitations: no limitations General appearance: alert Course Vital Signs Temperature 98.0 F 05/06/16 13:13 Pulse Rate 87 05/06/16 13:13 Respiratory Rate 18 05/06/16 13:13 Blood Pressure 202/105 05/06/16 13:13 O2 Sat by Pulse Oximetry 95 05/06/16 13:13 Temperature 98.0 F 05/06/16 13:13 Pulse Rate 86 03/27/17 14:15 Respiratory Rate 18 05/06/16 14:15 Blood Pressure 206/110 05/06/16 14:15 O2 Sat by Pulse Oximetry 96 05/06/16 14:15 Oxygen Delivery Oxygen Delivery Room Air Chest Pain - MDM Narrative Medical decision making narrative: Patient slightly hypotensive so she was given Lopressor. He has no EKG changes. Given the patient's past medical history of hypertension, hyperlipidemia she is a likely candidate for ACS rule out. In addition at the patient's warfarin INR is not appropriate she was given a dose of Lovenox after discussing case with pharmacy. They recommended 30 mg subcutaneous. The patient was accepted by Maria Guadalupe Martin NP in the hospitalist admitting. - Medical Records Medical records reviewed: Yes I reviewed the patient's medical records. - Lab Data Lab results reviewed: Yes I reviewed the patient's lab results. Result diagrams: 05/06/16 13:25 05/06/16 13:25 Lab Results 05/06/16 05/06/16 05/06/16 Range/Units 13:25 13:25 13:25 WBC 6.2 (4.3-11.1) K/mcL RBC 3.93 (3.82-4.97) M/mcL Hgb 11.0 L (11.5-15.4) g/dL Hct 36.2 (35.3-44.9) % MCV 92.1 (83.0-100.0) fL MCH 28.0 (28.0-33.3) pg MCHC 30.4 L (31.6-35.5) g/dL RDW 16.5 H (11.5-14.5) % Plt Count 245 (140-400) K/mcL MPV 9.8 (9.4-12.4) fL Immature Gran % 0.3 (0-4) % Seg Neutrophils % 60.1 % Lymphocytes % 28.0 % Monocytes % 6.3 % Eosinophils % 4.8 % Basophils % 0.5 % Neutrophils # 3.7 (1.6-8.9) K/mcL Lymphocytes # 1.7 (0.6-4.6) K/mcL Monocytes # 0.4 (0.0-1.3) K/mcL Eosinophils # 0.3 (0.0-0.6) K/mcL Basophils # 0.0 (0.0-0.2) K/mcL PT 13.2 H (9.4-12.1) Seconds INR 1.2 APTT 30.9 (26.0-36.0) Seconds Sodium 137 (136-145) mEq/L Potassium 4.2 (3.5-4.5) mEq/L Chloride 101 (98-109) mEq/L Carbon Dioxide 27 (19-29) mEq/L BUN 24 H (7-20) mg/dL Creatinine 1.43 H (0.57-1.11) mg/dL Est GFR ( Amer) 45 L (> 60) Est GFR (Non-Af Amer) 37 L (> 60) BUN/Creatinine Ratio 17 (6-26) Glucose 268 H (70-99) mg/dL Calculated Osmolality 297 (280-300) Calcium 8.5 L (8.6-10.8) mg/dL Total Bilirubin 0.6 (0.2-1.2) mg/dL AST 12 (5-34) Units/L ALT 9 (0-55) Units/L Alkaline Phosphatase 97 (38-126) Units/L Troponin I (0-0.03) ng/mL Serum Total Protein 7.0 (6.0-8.3) g/dL Albumin 2.7 L (3.5-5.0) g/dL Globulin 4.3 H (2.4-3.5) g/dL Albumin/Globulin Ratio 0.6 L (1.1-2.2) 05/06/ Range/Units 13:25 WBC (4.3-11.1) K/mcL RBC (3.82-4.97) M/mcL Hgb (11.5-15.4) g/dL Hct (35.3-44.9) % MCV (83.0-100.0) fL MCH (28.0-33.3) pg MCHC (31.6-35.5) g/dL RDW (11.5-14.5) % Plt Count (140-400) K/mcL MPV (9.4-12.4) fL Immature Gran % (0-4) % Seg Neutrophils % % Lymphocytes % % Monocytes % % Eosinophils % % Basophils % % Neutrophils # (1.6-8.9) K/mcL Lymphocytes # (0.6-4.6) K/mcL Monocytes # (0.0-1.3) K/mcL Eosinophils # (0.0-0.6) K/mcL Basophils # (0.0-0.2) K/mcL PT (9.4-12.1) Seconds INR APTT (26.0-36.0) Seconds Sodium (136-145) mEq/L Potassium (3.5-4.5) mEq/L Chloride (98-109) mEq/L Carbon Dioxide (19-29) mEq/L BUN (7-20) mg/dL Creatinine (0.57-1.11) mg/dL Est GFR ( Amer) (> 60) Est GFR (Non-Af Amer) (> 60) BUN/Creatinine Ratio (6-26) Glucose (70-99) mg/dL Calculated Osmolality (280-300) Calcium (8.6-10.8) mg/dL Total Bilirubin (0.2-1.2) mg/dL AST (5-34) Units/L ALT (0-55) Units/L Alkaline Phosphatase (38-126) Units/L Troponin I 0.03 (0-0.03) ng/mL Serum Total Protein (6.0-8.3) g/dL Albumin (3.5-5.0) g/dL Globulin (2.4-3.5) g/dL Albumin/Globulin Ratio (1.1-2.2) - Radiology Data Radiology results reviewed: Yes I reviewed the patient's radiology results. - EKG Data EKG attestation: Yes I reviewed and interpreted this EKG. EKG results narrative: Heart rate 87 bpm. ND interval 181 ms. QTc 421 ms. Normal axis. Normal sinus rhythm. No ST elevation or ST depression noted. Nonspecific ST changes noted from EKG from 03/02/2016. No acute changes noted. Heart Score - Score History: Moderately Suspicious EKG: Non Specific repolarisation Disturbance Age: 45-65 Risk Factors: Equal/Greater than 3 risk factor or history of atherosclerotic disease Troponin: Less than normal limit HEART Score Total: 5
[2016-05-06 13:32] LABS: Basophils % 0.5 %; Eosinophils # 0.3 K/mcL (0.0-0.6); Eosinophils % 4.8 %; Hematocrit 36.2 % (35.3-44.9); Immature Granulocytes % 0.3 % (0-4); Lymphocytes # 1.7 K/mcL (0.6-4.6); Mean Corpuscular HGB Conc 30.4 g/dL (31.6-35.5); Mean Corpuscular Volume 92.1 fL (83.0-100.0); Mean Platelet Volume 9.8 fL (9.4-12.4); Monocytes # 0.4 K/mcL (0.0-1.3); Monocytes % 6.3 %; Neutrophils # 3.7 K/mcL (1.6-8.9); Platelet Count 245 K/mcL (140-400); Red Blood Count 3.93 M/mcL (3.82-4.97); Red Cell Distribution Width 16.5 % (11.5-14.5); Segmented Neutrophils % 60.1 %
[2016-05-06 13:38] LABS: INR 1.2; Prothrombin Time 13.2 Seconds (9.4-12.1)
[2016-05-06 13:41] LABS: Activated Partial Thrombo Time 30.9 Seconds (26.0-36.0)
[2016-05-06 13:46] LABS: Albumin 2.7 g/dL (3.5-5.0); Albumin/Globulin Ratio 0.6 (1.1-2.2); Bilirubin,Total 0.6 mg/dL (0.2-1.2); Calcium 8.5 mg/dL (8.6-10.8); Globulin 4.3 g/dL (2.4-3.5); Potassium 4.2 mEq/L (3.5-4.5)
[2016-05-06] MEDS ORDERED: *HR* Enoxaparin 30 MG/0.3 ML SYRINGE SQ ONE (14:15)
[2016-05-06] MEDS ORDERED: *HR* Metoprolol 5 MG/5 ML VIAL IVP ONE (14:29)
--- NOTE | 2016-05-06 14:45 | Emergency Department Note ---
Disposition Clinical Impression: Subtherapeutic international normalized ratio (INR) Chest pain Qualifiers: Chest pain type: unspecified Qualified Code(s): R07.9 - Chest pain, unspecified Disposition: Admitted As Inpatient Condition: Undetermined Referrals: Mauro Dockery MD [Primary Care Provider] - Forms: ED Satisfaction Letter General Adult HPI - General Chief complaint: ED Chest Pain Stated complaint: Chest pain x 4 days Time Seen by Provider: 05/06/16 13:11 Source: patient, EMS Mode of arrival: EMS Limitations: no limitations - History of Present Illness Pain Scale: 8 - Related Data Home Medications Medication Instructions Recorded Confirmed Albuterol Neb [AccuNeb] 1.25 mg IH QID PRN 09/12/14 03/02/16 Cyclobenzaprine [Flexeril] 10 mg PO TID 09/12/14 03/02/16 Docusate [Colace] 100 mg PO TID 09/12/14 03/02/16 Doxepin [Sinequan] 50 mg PO HS 09/12/14 03/02/16 Gabapentin [Neurontin] 300 mg PO QID 09/12/14 03/02/16 Insulin ASPART [NovoLOG] 32 - 40 unit SQ QID 09/12/14 03/02/16 Insulin Glargine,Hum.rec.anlog 75 unit SQ BID 09/12/14 03/02/16 [Lantus Solostar] Meclizine [Antivert] 25 mg PO TID PRN 09/12/14 03/02/16 Rosuvastatin Calcium [Crestor] 10 mg PO HS 09/12/14 03/02/16 Allopurinol [Zyloprim 100 MG] 300 mg PO DAILY 03/22/15 03/02/16 Citalopram Hydrobromide [Celexa] 40 mg PO QPM 03/22/15 03/02/16 ClonazePAM [Klonopin] 1 mg PO HS 03/22/15 03/02/16 DiphenhydraMINE [Benadryl] 25 mg PO TID 03/22/15 03/02/16 Exenatide Microspheres [Bydureon 2 mg SQ QWEEK 03/22/15 03/02/16 Pen] Fluticasone Propionate Nasal 50 mcg NS DAILY PRN 03/22/15 03/02/16 [Flonase] Lidocaine Patch [Lidoderm 5% patch] 1 patch TP DAILY PRN 03/22/15 03/02/16 Nitroglycerin [Nitrostat] 0.4 mg SL AD PRN 03/22/15 03/02/16 Omeprazole [PriLOSEC] 20 mg PO HS 03/22/15 03/02/16 Omeprazole [PriLOSEC] 40 mg PO QAM 03/22/15 03/02/16 Promethazine [Phenergan] 25 mg PO TID 03/22/15 03/02/16 Isosorbide MONOnitrate (24 HR) 30 mg PO QPM 03/23/15 03/02/16 [Imdur] Acetaminophen [Tylenol] 1,000 mg PO TID 06/21/15 03/02/16 Metoprolol XL (24 HR) Succ [Toprol 25 mg PO DAILY 07/31/15 03/02/16 Xl] Warfarin [Coumadin] 4 mg PO Q48H 07/31/15 03/02/16 Warfarin [Coumadin] 5 mg PO Q48H 07/31/15 03/02/16 Furosemide [Lasix] 20 mg PO QPM 03/02/16 03/02/16 Furosemide [Lasix] 40 mg PO QAM 03/02/16 03/02/16 Previous Rx's Medication Instructions Recorded GuaiFENesin ER [Mucinex] 600 mg PO BID PRN #40 tbbp.12hr 08/06/15 Ciprofloxacin [Cipro] 500 mg PO BID 10 Days 03/04/16 Levothyroxine [Synthroid] 250 mcg PO DAILY #30 tablet 03/04/16 Ondansetron ODT [Zofran ODT] 4 mg SL Q6HR #15 tab.rapdis 03/18/16 Allergies Allergy/AdvReac Type Severity Reaction Status Date / Time aspirin Allergy Hives Verified 08/11/15 14:42 cephalexin [From Keflex] Allergy Difficulty Verified 08/11/15 14:42 Breathing codeine Allergy Hypertensio Verified 08/11/15 14:42 n Cortisone Allergy See Verified 10/02/15 00:56 Comments hydrocortisone Allergy Hypertensio Verified 08/11/15 14:42 n ibuprofen Allergy Hives Verified 08/11/15 14:42 Iodinated Contrast Media - Allergy See Verified 08/11/15 14:42 Oral and Comments [Iodinated Contrast Media - IV Dye] lidocaine [From Xylocaine] Allergy See Verified 08/11/15 14:42 Comments loratadine [From Claritin] Allergy Hives Verified 08/11/15 14:42 methylprednisolone Allergy Hypertensio Verified 08/11/15 14:42 [From Solu-Medrol] n Penicillins Allergy See Verified 08/11/15 14:42 Comments prednisone Allergy Hypertensio Verified 08/11/15 14:42 n Procaine [From Novocain] Allergy See Verified 08/11/15 14:42 Comments propoxyphene [From Darvon] Allergy See Verified 08/11/15 14:42 Comments pseudoephedrine Allergy Hives Verified 08/11/15 14:42 [From Sudafed] ropinirole [From Requip] Allergy See Verified 08/11/15 14:42 Comments Past Medical History - Past Medical History Medical history: Reports: arthritis, CHF, COPD, DVT, diabetes, GERD, hyperlipidemia, hypertension, migraine, osteoporosis, renal disease, thyroid disease, other Surgical history: Reports: hysterectomy, other Psychiatric history: Reports: anxiety, depression [employer]IVE [employer] history: Reports: bilateral 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 - Social History Smoking Status: Former smoker Smokeless Tobacco Status: No Alcohol use: Reports: none Drug use: Reports: none Physical Exam - General Limitations: no limitations General appearance: alert Course - Reevaluation(s) Reevaluation #1: I saw the patient with the resident, Dr. Ornelas. Patient presented with a complaint of chest pain. She has multiple risk factors for cardiac pathology. She also has prior history of DVT but has [place] filter in place and is on Coumadin. INR and of being low. We went ahead and gave her Lovenox. I do not see indication for doing a PE study in a patient who has a filter and we know we have to put on heparin therapy. Our concern is whether this is actually related to embolic disease or if this is acute cardiac issue. She will need to be admitted to hospital to have it figured out. Her physical exam is unremarkable. There is no ischemia on her EKG. Her labs are good. Time: 14:45 Vital Signs Temperature 98.0 F 05/06/16 13:13 Pulse Rate 87 05/06/16 13:13 Respiratory Rate 18 05/06/16 13:13 Blood Pressure 202/105 05/06/16 13:13 O2 Sat by Pulse Oximetry 95 05/06/16 13:13 Temperature 98.0 F 05/06/16 13:13 Pulse Rate 86 05/06/16 14:15 Respiratory Rate 18 05/06/16 14:15 Blood Pressure 206/110 05/06/16 14:15 O2 Sat by Pulse Oximetry 96 05/06/16 14:15 Oxygen Delivery Oxygen Delivery Room Air Medical Decision Making - Lab Data Result diagrams: 05/06/16 13:25 05/06/16 13:25 Lab Results 05/06/16 05/06/16 05/06/16 Range/Units 13:25 13:25 13:25 WBC 6.2 (4.3-11.1) K/mcL RBC 3.93 (3.82-4.97) M/mcL Hgb 11.0 L (11.5-15.4) g/dL Hct 36.2 (35.3-44.9) % MCV 92.1 (83.0-100.0) fL MCH 28.0 (28.0-33.3) pg MCHC 30.4 L (31.6-35.5) g/dL RDW 16.5 H (11.5-14.5) % Plt Count 245 (140-400) K/mcL MPV 9.8 (9.4-12.4) fL Immature Gran % 0.3 (0-4) % Seg Neutrophils % 60.1 % Lymphocytes % 28.0 % Monocytes % 6.3 % Eosinophils % 4.8 % Basophils % 0.5 % Neutrophils # 3.7 (1.6-8.9) K/mcL Lymphocytes # 1.7 (0.6-4.6) K/mcL Monocytes # 0.4 (0.0-1.3) K/mcL Eosinophils # 0.3 (0.0-0.6) K/mcL Basophils # 0.0 (0.0-0.2) K/mcL PT 13.2 H (9.4-12.1) Seconds INR 1.2 APTT 30.9 (26.0-36.0) Seconds Sodium 137 (136-145) mEq/L Potassium 4.2 (3.5-4.5) mEq/L Chloride 101 (98-109) mEq/L Carbon Dioxide 27 (19-29) mEq/L BUN 24 H (7-20) mg/dL Creatinine 1.43 H (0.57-1.11) mg/dL Est GFR ( Amer) 45 L (> 60) Est GFR (Non-Af Amer) 37 L (> 60) BUN/Creatinine Ratio 17 (6-26) Glucose 268 H (70-99) mg/dL Calculated Osmolality 297 (280-300) Calcium 8.5 L (8.6-10.8) mg/dL Total Bilirubin 0.6 (0.2-1.2) mg/dL AST 12 (5-34) Units/L ALT 9 (0-55) Units/L Alkaline Phosphatase 97 (38-126) Units/L Troponin I (0-0.03) ng/mL Serum Total Protein 7.0 (6.0-8.3) g/dL Albumin 2.7 L (3.5-5.0) g/dL Globulin 4.3 H (2.4-3.5) g/dL Albumin/Globulin Ratio 0.6 L (1.1-2.2) 05/06/ Range/Units 13:25 WBC (4.3-11.1) K/mcL RBC (3.82-4.97) M/mcL Hgb (11.5-15.4) g/dL Hct (35.3-44.9) % MCV (83.0-100.0) fL MCH (28.0-33.3) pg MCHC (31.6-35.5) g/dL RDW (11.5-14.5) % Plt Count (140-400) K/mcL MPV (9.4-12.4) fL Immature Gran % (0-4) % Seg Neutrophils % % Lymphocytes % % Monocytes % % Eosinophils % % Basophils % % Neutrophils # (1.6-8.9) K/mcL Lymphocytes # (0.6-4.6) K/mcL Monocytes # (0.0-1.3) K/mcL Eosinophils # (0.0-0.6) K/mcL Basophils # (0.0-0.2) K/mcL PT (9.4-12.1) Seconds INR APTT (26.0-36.0) Seconds Sodium (136-145) mEq/L Potassium (3.5-4.5) mEq/L Chloride (98-109) mEq/L Carbon Dioxide (19-29) mEq/L BUN (7-20) mg/dL Creatinine (0.57-1.11) mg/dL Est GFR ( Amer) (> 60) Est GFR (Non-Af Amer) (> 60) BUN/Creatinine Ratio (6-26) Glucose (70-99) mg/dL Calculated Osmolality (280-300) Calcium (8.6-10.8) mg/dL Total Bilirubin (0.2-1.2) mg/dL AST (5-34) Units/L ALT (0-55) Units/L Alkaline Phosphatase (38-126) Units/L Troponin I 0.03 (0-0.03) ng/mL Serum Total Protein (6.0-8.3) g/dL Albumin (3.5-5.0) g/dL Globulin (2.4-3.5) g/dL Albumin/Globulin Ratio (1.1-2.2) Attestation Statement - Attestation Attestation: I, Dr. Ivey, examined this patient [id number] and my medical decision- making was reviewed with Dr. Ornelas, Resident Physician. I agree with the documented findings, disposition and treatment plan as described except to the extent set forth below. Please see my progress notes for details.
[2016-05-06] MEDS ORDERED: Nitroglycerin 0.4 MG TAB.SUBL SL PRN (17:30)
[2016-05-06] MEDS ORDERED: *HR* Warfarin 4 MG TABLET PO SCH (17:30)
[2016-05-06] MEDS: Isosorbide MONOnitrate (24 HR) 30 MG TAB.ER.24H PO SCH (18:22)
[2016-05-06] MEDS: Nystatin POWDER 30 GM BOTTLE TP SCH (18:23)
[2016-05-06] MEDS ORDERED: Naloxone 0.4 MG/ML INJ IVP PRN (18:24)
[2016-05-06] MEDS ORDERED: D5% in Water 1,000 ML IVC PRN (18:28)
[2016-05-06] MEDS ORDERED: *HR* Dextrose 50 % in Water (Syg) 50 ML SYRINGE IVP PRN (18:28)
[2016-05-06] MEDS ORDERED: Dextrose Gel 15 GM PO PRN ×2 (18:28)
[2016-05-06] MEDS ORDERED: Albuterol Neb 1.25 MG/3 ML VIAL IH PRN (18:29)
[2016-05-06] MEDS: Insulin LISPRO 300 UNITS/3 ML VIAL SQ SCH ×2 (19:42→21:09)
[2016-05-06] MEDS ORDERED: *HR* Warfarin 4 MG TABLET PO ONE (20:45)
[2016-05-06] MEDS: clonazePAM 1 MG TABLET PO SCH (21:20)
[2016-05-06] MEDS: Insulin DETEMIR 100 UNIT/ML X5UNITS SQ SCH (21:21)
[2016-05-06] MEDS: Gabapentin 300 MG CAPSULE PO SCH (21:21)
[2016-05-06] MEDS: Ammonium Lactate 30 APPL/225 GM BOTTLE TP SCH (21:22)
--- NOTE | 2016-05-06 21:33 | Event Note ---
Date of Encounter: 05/06/16 Time of Encounter: 21:29 I examined this patient and my medical decision-making was reviewed with the Advanced Practice Nurse. I agree with the documented findings, disposition and treatment plan as described except to the extent set forth below. The patient presented to the hospital for evaluation of chest pain and shortness of breath. She describes the pain as left-sided sharp stabbing worse with inspiration. On exam she is in no acute distress, morbidly obese lady sitting in full sentences heart is regular S1 and S2 with no murmurs. There is significant point tenderness to palpation over the left lower rib cage. There is no bruising on the skin no palpable masses and no rashes. Plan: We will place patient in observation for evaluation of chest pain. This would be highly atypical for ACS. We will place her on telemetry and trend troponin. She has a history of DVT. Currently she has a subtherapeutic INR and I will review her medical record her INR stays around 1.2-1.3, rarely reaches above 2. She she is at risk for pulmonary emboli because of her subtherapeutic INR. Will evaluate the patient for presence of PE. A CT angiogram is contraindicated due to elevated creatinine. We will obtain a VQ scan in the morning.
[2016-05-06] MEDS: *HR* Morphine 2 MG/ML SYRINGE IVP PRN (21:45)
--- NOTE | 2016-05-06 23:36 | Internal Med History&Physical ---
<Rupa Martinez M - Last Filed: 05/07/16 00:16> Date of Encounter: 05/06/16 Time of Encounter: 23:33 Assessment and Plan (1) Chest pain Current visit: Yes Status: Acute Patient reports chest pain under her left breast radiating to her sternum and back and across her chest. She reports accompanying shortness of breath. Her pain was relieved temporarily by nitro in the ED. EKG showed normal sinus rhythm, no ST elevation or ST depression, no acute changes noted. Initial troponin negative at 0.0. While she has a priyank filter, we would still like to rule her out for PE as her INR is subtherapeutic. CTA is contraindicated due to kidney function, will get V/Q scan. Differential includes PE, and will rule out ACS. Patient had echocardiogram 03/03/16 which showed EF 60-65% withmild concentric LVH and mild LV diastolic dysfunction. 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 Qualifiers: Chest pain type: other chest pain Qualified Code(s): R07.89 - Other chest pain; R07.8 - Other chest pain (2) Type 2 diabetes mellitus Current visit: Yes Status: Acute Not well controlled as evidenced by A1c of 9.0% diabetic, heart healthy diet check blood sugars ACHS Continue home basal dose of insulin 75u Levemir BID Lispro 34U TIDWM plus sliding scale TIDWM Sliding scale correction dose HS hypoglycemic protocol. 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 INR is only 1.2. ER consulted with pharmacy and gave 30mg of lovenox SQ. pharmacy to dose coumadin PT/INR and PTT in the morning. (4) Obesity Current visit: No Status: Chronic Patient reports she has been working on weight loss and has gone from 354lbs to 337lbs with planned weight loss. Offered encouragement. Qualifiers: Obesity type: due to excess calories Obesity severity: morbid Qualified Code(s): E66.01 - Morbid (severe) obesity due to excess calories (5) DVT prophylaxis Current visit: No Status: Acute UP to chair BID anti-embolic stockings As patient's INR is sub therapeutic, will give renal dose of lovenox 30mg SQ tomorrow. Internal Medicine - H&P: HPI Chief complaint: chest pain Admitted From: Emergency Dept Plans for Post Hospital Care: Home History of present illness: Ms. Mars is a 61 year old female with hypertension, type 2 diabetes, congestive heart failure, COPD, history of DVT on Coumadin with [place] filter placement, morbid obesity who presented to the emergency department today with complaints of sharp stabbing chest pain and shortness of breath for the last 5 days. She reports this pain started 5 days ago and has been constant ache radiates from the left side of her rib cage up to her sternum and across her chest. It was relieved by nitroglycerin given in the emergency department. She also reports shortness of breath on and off. She also reports some nausea, occasional lightheadedness and dizziness. She reports some chronic numb numbness and tingling in her bilateral feet, and chronic bilateral lower extremity swelling at her baseline. Evaluation in the emergency department included an EKG which showed normal sinus rhythm, no ST elevation or ST depression, no acute changes noted. Chest x-ray showed no acute cardiopulmonary disease. Creatinine of 1.43 is at her baseline. INR is subtherapeutic at 1.2. She is hyperglycemic with glucose of 268. On exam, patient is alert and oriented, in no acute distress. Heart has regular rate and rhythm, lungs are clear bilaterally to auscultation. Past Med Surg Social Fam HX - Past Medical History Medical history: arthritis, CHF, COPD, DVT, diabetes, GERD, hyperlipidemia, hypertension, migraine, osteoporosis, renal disease, thyroid disease, other Psychiatric history: anxiety, depression - Past Surgical History Surgical History: hysterectomy, other - Social History Smoking Status: Former smoker Smokeless Tobacco Status: No Alcohol use: none Drug use: none - Family History Mother Living Status: Hx Family Cardiac Disorders: Yes Hx Family Cancer: Yes Hx Family Endocrine Disorder: Yes Internal Medicine - H&P: Meds Cyclobenzaprine [Flexeril] 10 mg PO TID 09/12/14 [History] Docusate [Colace] 100 mg PO TID 09/12/14 [History] Doxepin [Sinequan] 50 mg PO HS 09/12/14 [History] Gabapentin [Neurontin] 300 mg PO BID 09/12/14 [History] Insulin ASPART [NovoLOG] 34 unit SQ QID 09/12/14 [History] Insulin Glargine,Hum.rec.anlog [Lantus Solostar] 75 unit SQ BID 09/12/14 [ History] Meclizine [Antivert] 25 mg PO TID 09/12/14 [History] Allopurinol [Zyloprim 100 MG] 100 mg PO DAILY 03/22/15 [History] ClonazePAM [Klonopin] 1 mg PO HS 03/22/15 [History] DiphenhydraMINE [Benadryl] 25 mg PO TID 03/22/15 [History] Exenatide Microspheres [Bydureon Pen] 2 mg SQ MO 03/22/15 [History] Lidocaine Patch [Lidoderm 5% patch] 1 - 3 patch TP DAILY 03/22/15 [History] Nitroglycerin [Nitrostat] 0.4 mg SL Q5M PRN 03/22/15 [History] Promethazine [Phenergan] 25 mg PO TID 03/22/15 [History] Isosorbide MONOnitrate (24 HR) [Imdur] 30 mg PO QPM 03/23/15 [History] Metoprolol XL (24 HR) Succ [Toprol Xl] 25 mg PO DAILY 07/31/15 [History] Warfarin [Coumadin] 4 mg PO Q48H 07/31/15 [History] Warfarin [Coumadin] 5 mg PO Q48H 07/31/15 [History] Furosemide [Lasix] 20 mg PO 1800,2330 03/02/16 [History] Furosemide [Lasix] 40 mg PO QAM 03/02/16 [History] Albuterol Neb [AccuNeb] 1.25 mg IH QID PRN 05/06/16 [History] Ammonium Lactate [Lac-Hydrin Five] 1 appl TP TID 05/06/16 [History] Levothyroxine [Synthroid] 250 mcg PO QAM 05/06/16 [History] Nystatin POWDER [Nystop] 1 appl TP BID 05/06/16 [History] Pantoprazole Sodium [Protonix] 40 mg PO DAILY 05/06/16 [History] Petrolatum,White [Aloe Gardner] 1 appl TP BID 05/06/16 [History] Rosuvastatin [Crestor] 20 mg PO HS 05/06/16 [History] Allergies aspirin Allergy (Verified 08/11/15 14:42) Hives cephalexin [From Keflex] Allergy (Verified 08/11/15 14:42) Difficulty Breathing codeine Allergy (Verified 08/11/15 14:42) Hypertension Cortisone Allergy (Verified 10/02/15 00:56) See Comments "made my arm tingle & didn't help my back pain" hydrocortisone Allergy (Verified 08/11/15 14:42) Hypertension ibuprofen Allergy (Verified 08/11/15 14:42) Hives Iodinated Contrast Media - Oral and [Iodinated Contrast Media - IV Dye] Allergy (Verified 08/11/15 14:42) See Comments lidocaine [From Xylocaine] Allergy (Verified 08/11/15 14:42) See Comments loratadine [From Claritin] Allergy (Verified 08/11/15 14:42) Hives methylprednisolone [From Solu-Medrol] Allergy (Verified 08/11/15 14:42) Hypertension Penicillins Allergy (Verified 08/11/15 14:42) See Comments prednisone Allergy (Verified 08/11/15 14:42) Hypertension Procaine [From Novocain] Allergy (Verified 08/11/15 14:42) See Comments propoxyphene [From Darvon] Allergy (Verified 08/11/15 14:42) See Comments pseudoephedrine [From Sudafed] Allergy (Verified 08/11/15 14:42) Hives ropinirole [From Requip] Allergy (Verified 08/11/15 14:42) See Comments All Systems PM: A 10-system review of systems was performed and is negative for pertinent findings except as documented above in the HPI. - Constitutional Constitutional: no chills, no fever(s), no night sweats - EENT Eyes: no change in vision, no discharge, no pain, no photophobia Ears: no ear discharge, no ear pain, no tinnitus Nose, mouth and throat: no dysphagia, no nasal discharge, no neck pain, no sore throat - Cardiovascular Cardiovascular ROS IM: chest pain, dyspnea, edema, lightheadedness, no diaphoresis, no palpitations, no syncope - Respiratory Respiratory: no cough, no dyspnea, no wheezing, no excessive phlegm production - Gastrointestinal Gastrointestinal: diarrhea, no abdominal pain, no hematemesis, no hematochezia, no melena, no nausea, no vomiting - Genitourinary Genitourinary: no change in urinary stream, no dysuria, no flank pain, no hematuria - Musculoskeletal Musculoskeletal ROS IM: no numbness, no tingling - Integumentary Integumentary IM: no rash, no unusual bruising - Neurological Neurological ROS: numbness (chronic bilateral feet), tingling, no confusion, no convulsions, no focal weakness, no tremor(s) - Hematologic/Lymphatic Hematologic/Lymphatic: no easy bruising - Constitutional Vitals: Temp Pulse Resp BP Pulse Ox 98.2 F 85 17 144/71 97 05/06/16 20:16 05/06/16 20:16 05/06/16 20:16 05/06/16 20:16 05/06/16 20:16 General appearance: Present: A&O X 3, morbidly obese, pleasant, no acute distress - Head Head exam: Present: atraumatic, normocephalic - Eye Eye exam: Present: PERRL, conjuntiva pink, sclera anicteric Pupils: Present: PERRL - Neck Neck exam general surgery: Present: supple, trachea midline. Absent: lymphadenopathy - Respiratory Respiratory exam: Present: CTAB. Absent: accessory muscle use, rales, rhonchi, wheezes - Cardiovascular Cardiovascular exam: Present: RRR, +S1, +S2. Absent: diastolic murmur, gallop, rubs, systolic murmur - GI/Abdominal GI/Abdominal exam: Present: normal bowel sounds, soft, no peritoneal signs. Absent: distended, tenderness - Extremities Exam Extremities exam: Present: warm, radial pulses palpable and symetrical. Absent : calf tenderness, cyanotic, pedal edema - Neurological Exam Neurological exam: Present: CN II-XII intact, oriented X3, no focal deficits. Absent: facial droop, speech deficit - Skin Skin exam: Present: dry, intact Internal Med - H&P Results - Labs CBC & Chem 7: 05/06/16 13:25 05/06/16 13:25 Labs: Cardiac Enzymes All Lab Results (24 Hours) 05/06/16 05/06/16 05/06/16 Range/Units 13:25 13:25 13:25 WBC 6.2 (4.3-11.1) K/mcL RBC 3.93 (3.82-4.97) M/mcL Hgb 11.0 L (11.5-15.4) g/dL Hct 36.2 (35.3-44.9) % MCV 92.1 (83.0-100.0) fL MCH 28.0 (28.0-33.3) pg MCHC 30.4 L (31.6-35.5) g/dL RDW 16.5 H (11.5-14.5) % Plt Count 245 (140-400) K/mcL MPV 9.8 (9.4-12.4) fL Immature Gran % 0.3 (0-4) % Seg Neutrophils % 60.1 % Lymphocytes % 28.0 % Monocytes % 6.3 % Eosinophils % 4.8 % Basophils % 0.5 % Neutrophils # 3.7 (1.6-8.9) K/mcL Lymphocytes # 1.7 (0.6-4.6) K/mcL Monocytes # 0.4 (0.0-1.3) K/mcL Eosinophils # 0.3 (0.0-0.6) K/mcL Basophils # 0.0 (0.0-0.2) K/mcL PT 13.2 H (9.4-12.1) Seconds INR 1.2 APTT 30.9 (26.0-36.0) Seconds Sodium 137 (136-145) mEq/L Potassium 4.2 (3.5-4.5) mEq/L Chloride 101 (98-109) mEq/L Carbon Dioxide 27 (19-29) mEq/L BUN 24 H (7-20) mg/dL Creatinine 1.43 H (0.57-1.11) mg/dL Est GFR ( Amer) 45 L (> 60) Est GFR (Non-Af Amer) 37 L (> 60) BUN/Creatinine Ratio 17 (6-26) Glucose 268 H (70-99) mg/dL Est Mean Plasma Glucose mg/dl Hemoglobin A1c ( - 5.6) % Calculated Osmolality 297 (280-300) Calcium 8.5 L (8.6-10.8) mg/dL Total Bilirubin 0.6 (0.2-1.2) mg/dL AST 12 (5-34) Units/L ALT 9 (0-55) Units/L Alkaline Phosphatase 97 (38-126) Units/L Troponin I (0-0.03) ng/mL Serum Total Protein 7.0 (6.0-8.3) g/dL Albumin 2.7 L (3.5-5.0) g/dL Globulin 4.3 H (2.4-3.5) g/dL Albumin/Globulin Ratio 0.6 L (1.1-2.2) 05/06/16 05/06/16 05/06/16 Range/Units 13:25 19:45 Unknown WBC (4.3-11.1) K/mcL RBC (3.82-4.97) M/mcL Hgb (11.5-15.4) g/dL Hct (35.3-44.9) % MCV (83.0-100.0) fL MCH (28.0-33.3) pg MCHC (31.6-35.5) g/dL RDW (11.5-14.5) % Plt Count (140-400) K/mcL MPV (9.4-12.4) fL Immature Gran % (0-4) % Seg Neutrophils % % Lymphocytes % % Monocytes % % Eosinophils % % Basophils % % Neutrophils # (1.6-8.9) K/mcL Lymphocytes # (0.6-4.6) K/mcL Monocytes # (0.0-1.3) K/mcL Eosinophils # (0.0-0.6) K/mcL Basophils # (0.0-0.2) K/mcL PT (9.4-12.1) Seconds INR APTT (26.0-36.0) Seconds Sodium (136-145) mEq/L Potassium (3.5-4.5) mEq/L Chloride (98-109) mEq/L Carbon Dioxide (19-29) mEq/L BUN (7-20) mg/dL Creatinine (0.57-1.11) mg/dL Est GFR ( Amer) (> 60) Est GFR (Non-Af Amer) (> 60) BUN/Creatinine Ratio (6-26) Glucose (70-99) mg/dL Est Mean Plasma Glucose 212 mg/dl Hemoglobin A1c 9.0 H ( - 5.6) % Calculated Osmolality (280-300) Calcium (8.6-10.8) mg/dL Total Bilirubin (0.2-1.2) mg/dL AST (5-34) Units/L ALT (0-55) Units/L Alkaline Phosphatase (38-126) Units/L Troponin I 0.03 0.02 (0-0.03) ng/mL Serum Total Protein (6.0-8.3) g/dL Albumin (3.5-5.0) g/dL Globulin (2.4-3.5) g/dL Albumin/Globulin Ratio (1.1-2.2) 05/06/16 Range/Units 19:45 Troponin I 0.02 (0-0.03) ng/mL - Diagnostic Studies Chest x-ray Additional comments: Chest X-Ray 05/06/16 13:11 IMPRESSION: No acute cardiopulmonary disease. D/ / Piero Lafleur MD / Piero Lafleur MD Interpreting Provider: Piero Lafleur MD <Rodolfo Palumbo - Last Filed: 05/07/16 11:40> Internal Medicine - H&P: HPI History of present illness: Ms. Mars is a 61 year old female All Systems PM: A 10-system review of systems was performed and is negative for pertinent findings except as documented above in the HPI. - Constitutional Vitals: Temp Pulse Resp BP Pulse Ox 97.5 F L 82 18 99/65 94 L 05/07/16 11:24 05/07/16 11:24 05/07/16 11:24 05/07/16 11:24 05/07/16 11:24 Internal Med - H&P Results - Labs CBC & Chem 7: 05/07/16 00:54 05/07/16 00:54 Labs: Short CBC 05/07/16 Range/Units 00:54 WBC 6.4 (4.3-11.1) K/mcL Hgb 10.0 L (11.5-15.4) g/dL Hct 33.3 L (35.3-44.9) % Plt Count 247 (140-400) K/mcL Neutrophils # 3.5 (1.6-8.9) K/mcL BMP 05/07/16 00:54 Sodium 136 Potassium 4.4 Chloride 102 Carbon Dioxide 23 BUN 28 H Creatinine 1.98 H Glucose 216 H Calcium 8.5 L Cardiac Enzymes 05/06/16 05/07/16 Range/Units 19:45 00:54 Troponin I 0.02 0.03 (0-0.03) ng/mL - Attending Attestation I examined this patient and my medical decision-making was reviewed with the Advanced Practice Nurse. I agree with the documented findings, disposition and treatment plan as described except to the extent set forth below. See addendum for the date of service 05/06/2016.
[2016-05-06] MEDS: Furosemide 20 MG TABLET PO SCH (23:47)
[2016-05-07 01:12] LABS: Basophils % 0.6 %; Eosinophils # 0.2 K/mcL (0.0-0.6); Eosinophils % 3.8 %; Hematocrit 33.3 % (35.3-44.9); Immature Granulocytes % 0.5 % (0-4); Lymphocytes # 2.2 K/mcL (0.6-4.6); Lymphocytes % 33.9 %; Mean Corpuscular Hemoglobin 28.1 pg (28.0-33.3); Mean Corpuscular Volume 93.5 fL (83.0-100.0); Mean Platelet Volume 9.9 fL (9.4-12.4); Monocytes # 0.5 K/mcL (0.0-1.3); Neutrophils # 3.5 K/mcL (1.6-8.9); Platelet Count 247 K/mcL (140-400); Red Blood Count 3.56 M/mcL (3.82-4.97); Red Cell Distribution Width 16.8 % (11.5-14.5); Segmented Neutrophils % 54.2 %
[2016-05-07 01:19] LABS: Calcium 8.5 mg/dL (8.6-10.8); Potassium 4.4 mEq/L (3.5-4.5)
[2016-05-07 01:20] LABS: INR 1.3; Prothrombin Time 13.6 Seconds (9.4-12.1)
[2016-05-07 01:23] LABS: Activated Partial Thrombo Time 25.8 Seconds (26.0-36.0)
[2016-05-07] MEDS ORDERED: *HR* Enoxaparin 30 MG/0.3 ML SYRINGE SQ SCH (07:00)
[2016-05-07] MEDS: Furosemide 40 MG TABLET PO SCH (08:49)
[2016-05-07] MEDS: Nystatin POWDER 30 GM BOTTLE TP SCH ×2 (08:49→17:08)
[2016-05-07] MEDS: Gabapentin 300 MG CAPSULE PO SCH ×2 (08:49→21:20)
[2016-05-07] MEDS: Metoprolol XL (24 HR) Succ 25 MG TAB.ER.24H PO SCH (08:49)
[2016-05-07] MEDS: Insulin LISPRO 300 UNITS/3 ML VIAL SQ SCH ×7 (08:50→21:20)
[2016-05-07] MEDS: Ammonium Lactate 30 APPL/225 GM BOTTLE TP SCH ×3 (08:50→21:19)
[2016-05-07] MEDS: Insulin DETEMIR 100 UNIT/ML X5UNITS SQ SCH ×2 (08:51→21:20)
[2016-05-07] MEDS: *HR* Morphine 2 MG/ML SYRINGE IVP PRN (09:04)
[2016-05-07] MEDS ORDERED: *HR* Heparin 5,000 UNIT/ML VIAL IVP ONE (11:35)
[2016-05-07] MEDS ORDERED: *HR* Heparin 5,000 UNIT/ML VIAL IVP PRN ×2 (11:35)
[2016-05-07 12:57] LABS: INR 1.2; Prothrombin Time 13.5 Seconds (9.4-12.1)
[2016-05-07 13:00] LABS: Activated Partial Thrombo Time 31.3 Seconds (26.0-36.0)
[2016-05-07 13:08] LABS: Hemoglobin 10.7 g/dL (11.5-15.4); Mean Corpuscular HGB Conc 29.7 g/dL (31.6-35.5); Mean Corpuscular Hemoglobin 28.1 pg (28.0-33.3); Mean Corpuscular Volume 94.5 fL (83.0-100.0); Mean Platelet Volume 10.3 fL (9.4-12.4); Platelet Count 249 K/mcL (140-400); Red Blood Count 3.81 M/mcL (3.82-4.97); Red Cell Distribution Width 16.9 % (11.5-14.5)
[2016-05-07] MEDS: Heparin 25,000 UNIT/500 ML D5W 25,000 UNIT/500 ML MLS IVC SCH (13:43)
--- NOTE | 2016-05-07 15:37 | Internal Med Progress Note ---
Date of Encounter: 05/07/16 Time of Encounter: 15:35 - Assessment and plan (1) RUPERT (obstructive sleep apnea) Current Visit: No Status: Chronic Assessment and plan: Patient is not willing to try the CPAP mask. She says she tried 8-10 years ago which was very uncomfortable and is not willing to give another try. However we will consult respiratory for bedside assessment. (2) Chest pain Current Visit: No Status: Acute Assessment and plan: EKG showed normal sinus rhythm, no ST elevation or ST depression, no acute changes noted. trop negative, chest pain less likely cardiac. she has subtherapeutic INR and history of DVT, presented with chest pain now, V /Q was scheduled to r/o PE. CTA is contraindicated due to kidney function, however patinet could not lie flat given RUPERT. she has no tachycardia or hypoxia atthis time which makes PE less likely however given high risk and inability to rule out PE completely, will start on heparin drip and adjust the Coumadin dose to maintain therapeutic INR. We will stop the heparin drip once INR becomes therapeutic. Questionable medical compliance as her INR has been subtherapeutic for a while. Also before presentation her blood pressure was elevated. However today her blood pressure seems to be stable without any addition of other antihypertensives. Patient had echocardiogram 03/03/16 which showed EF 60-65% withmild concentric LVH and mild LV diastolic dysfunction. Qualifiers: Chest pain type: unspecified Qualified Code(s): R07.9 - Chest pain, unspecified (3) Hx of deep venous thrombosis Current Visit: No Status: Acute Assessment and plan: Patient reports history of multiple DVT in 2014 with placement of Marlene filter and on Coumadin. INR noted to be subtherapeutic at this time. no calf Tenderness or swelling currently,will start heparin drip with coumadin as unable to r/o PE. stop heparin drip until INR is therapuetic (4) Non compliance with medical treatment Current Visit: No Status: Chronic Assessment and plan: as above (5) Morbid obesity Current Visit: No Status: Chronic Qualifiers: Obesity type: with alveolar hypoventilation Qualified Code(s): E66.2 - Morbid (severe) obesity with alveolar hypoventilation - Time Spent With Patient 25 - 35 minutes - Subjective Interval history: Patient admitted for left-sided chest pain. History of DVT(2015) on Coumadin and Marlene filter. Seen at the bedside, reports that the chest pain is better but still has some chest pain on both sides today, radiating to the back. Denies any shortness of breath, saturating 96% on room air. Denies any leg swelling or calf tenderness. Discussed about starting CPAP, however she says she feels very uncomfortable and does not want to try one. - Constitutional Vitals: Temp Pulse Resp BP Pulse Ox 97.5 F L 82 18 99/65 94 L 05/07/16 11:24 05/07/16 11:24 05/07/16 11:24 05/07/16 11:24 05/07/16 11:24 General appearance: Present: A&O X 3, morbidly obese, pleasant, no acute distress Exam: - Head Head exam: Present: atraumatic, normocephalic - Eye Eye exam: Present: PERRL, conjuntiva pink, sclera anicteric Pupils: Present: PERRL - Neck Neck exam general surgery: Present: supple, trachea midline. Absent: lymphadenopathy - Respiratory Respiratory exam: Present: CTAB. Absent: accessory muscle use, rales, rhonchi, wheezes - Cardiovascular Cardiovascular exam: Present: RRR, +S1, +S2. Absent: diastolic murmur, gallop, rubs, systolic murmur - GI/Abdominal GI/Abdominal exam: Present: normal bowel sounds, soft, no peritoneal signs. Absent: distended, tenderness - Extremities Exam Extremities exam: Present: warm, radial pulses palpable and symetrical. Absent : calf tenderness, cyanotic, pedal edema - Neurological Exam Neurological exam: Present: CN II-XII intact, oriented X3, no focal deficits. Absent: facial droop, speech deficit - Skin Skin exam: Present: dry, intact Internal Medicine: Result - Labs CBC & Chem 7: 05/07/16 12:15 05/07/16 00:54 Labs: Short CBC 05/07/16 05/07/16 Range/Units 00:54 12:15 WBC 6.4 6.6 (4.3-11.1) K/mcL Hgb 10.0 L 10.7 L (11.5-15.4) g/dL Hct 33.3 L 36.0 (35.3-44.9) % Plt Count 247 249 (140-400) K/mcL Neutrophils # 3.5 (1.6-8.9) K/mcL BMP 05/07/16 00:54 Sodium 136 Potassium 4.4 Chloride 102 Carbon Dioxide 23 BUN 28 H Creatinine 1.98 H Glucose 216 H Calcium 8.5 L Cardiac Enzymes 05/06/16 05/07/16 Range/Units 19:45 00:54 Troponin I 0.02 0.03 (0-0.03) ng/mL - ABG Interpretation ABG results: PT/INR, D-dimer PT 13.5 Seconds (9.4-12.1) H 05/07/16 12:15 Consult Discharge Plan - Plan Referrals: Mauro Dockery MD [Primary Care Provider] - 05/13/16 9:45 am ()
[2016-05-07] MEDS: *HR* Warfarin 5 MG TABLET PO SCH (17:09)
[2016-05-07] MEDS: Isosorbide MONOnitrate (24 HR) 30 MG TAB.ER.24H PO SCH (17:09)
[2016-05-07] MEDS: Furosemide 20 MG TABLET PO SCH ×2 (17:18→23:30)
[2016-05-07] MEDS ORDERED: Warfarin perPT PO PRN (18:00)
[2016-05-07] MEDS: clonazePAM 1 MG TABLET PO SCH (21:21)
[2016-05-08] MEDS: Heparin 25,000 UNIT/500 ML D5W 25,000 UNIT/500 ML MLS IVC SCH ×2 (01:55→15:32)
[2016-05-08 05:35] LABS: Basophils % 0.3 %; Eosinophils # 0.3 K/mcL (0.0-0.6); Eosinophils % 4.3 %; Hemoglobin 9.7 g/dL (11.5-15.4); Immature Granulocytes % 0.5 % (0-4); Lymphocytes # 2.3 K/mcL (0.6-4.6); Lymphocytes % 38.4 %; Mean Corpuscular HGB Conc 30.3 g/dL (31.6-35.5); Mean Corpuscular Volume 92.5 fL (83.0-100.0); Mean Platelet Volume 9.7 fL (9.4-12.4); Monocytes # 0.5 K/mcL (0.0-1.3); Monocytes % 7.7 %; Platelet Count 201 K/mcL (140-400); Red Blood Count 3.46 M/mcL (3.82-4.97); Red Cell Distribution Width 16.9 % (11.5-14.5); Segmented Neutrophils % 48.8 %
[2016-05-08 05:38] LABS: INR 1.3; Prothrombin Time 14.3 Seconds (9.4-12.1)
[2016-05-08 05:48] LABS: Calcium 8.6 mg/dL (8.6-10.8); Potassium 4.1 mEq/L (3.5-4.5)
[2016-05-08 05:54] LABS: Activated Partial Thrombo Time 199.9 Seconds (26.0-36.0)
[2016-05-08 06:17] LABS: Heparin anti-factor XA UFH 1.74 IU/mL (0.30-0.70)
--- NOTE | 2016-05-08 07:52 | Electrocardiograph Report ---
[place] [id number] Test Date: 2016-05-06 Pat Name: Jenny Mars Department: 104 Room: 2A37 Gender: F [employer]: : 1955 Requested By: Casper Ornelas Order Number: [id number] Reading MD: Gian Benson MD Measurements Intervals [place] Rate: 87 P: 47 TN: 181 QRS: 30 QRSD: 98 T: 14 QT: 376 QTc: 421 Interpretive Statements SINUS RHYTHM LOW QRS VOLTAGE IN PRECORDIAL LEADS Electronically Signed On 05-08-2016 7:50:45 EDT by Gian Benson MD
[2016-05-08] MEDS: Metoprolol XL (24 HR) Succ 25 MG TAB.ER.24H PO SCH (09:28)
[2016-05-08] MEDS: Gabapentin 300 MG CAPSULE PO SCH ×2 (09:29→20:01)
[2016-05-08] MEDS: Ammonium Lactate 30 APPL/225 GM BOTTLE TP SCH ×3 (09:29→20:02)
[2016-05-08] MEDS: Insulin LISPRO 300 UNITS/3 ML VIAL SQ SCH ×7 (09:29→23:28)
[2016-05-08] MEDS: Furosemide 40 MG TABLET PO SCH (09:29)
[2016-05-08] MEDS: Nystatin POWDER 30 GM BOTTLE TP SCH ×2 (09:30→20:02)
[2016-05-08] MEDS: Insulin DETEMIR 100 UNIT/ML X5UNITS SQ SCH ×2 (09:36→23:27)
[2016-05-08] MEDS: *HR* Warfarin 5 MG TABLET PO SCH (17:05)
[2016-05-08] MEDS: Isosorbide MONOnitrate (24 HR) 30 MG TAB.ER.24H PO SCH (17:05)
--- NOTE | 2016-05-08 17:23 | Internal Med Progress Note ---
Date of Encounter: 05/07/16 Time of Encounter: 17:21 - Assessment and plan (1) Chest pain Current Visit: No Status: Acute Assessment and plan: EKG showed normal sinus rhythm, no ST elevation or ST depression, no acute changes noted. trop negative, chest pain less likely cardiac. she has subtherapeutic INR and history of DVT, presented with chest pain now, V /Q was scheduled to r/o PE. CTA is contraindicated due to kidney function, however patinet could not lie flat given RUPERT. she has no tachycardia or hypoxia atthis time which makes PE less likely however given high risk and inability to rule out PE completely, will start on heparin drip and adjust the Coumadin dose to maintain therapeutic INR. We will stop the heparin drip once INR becomes therapeutic. Questionable medical compliance as her INR has been subtherapeutic for a while. Patient had echocardiogram 03/03/16 which showed EF 60-65% withmild concentric LVH and mild LV diastolic dysfunction. Qualifiers: Chest pain type: unspecified Qualified Code(s): R07.9 - Chest pain, unspecified (2) Hx of deep venous thrombosis Current Visit: No Status: Acute Assessment and plan: Patient reports history of multiple DVT in 2014 with placement of Marlene filter and on Coumadin. INR noted to be subtherapeutic at this time. no calf Tenderness or swelling currently,will start heparin drip with coumadin as unable to r/o PE. stop heparin drip until INR is therapuetic (3) Non compliance with medical treatment Current Visit: No Status: Chronic Assessment and plan: as above (4) Morbid obesity Current Visit: No Status: Chronic Qualifiers: Obesity type: with alveolar hypoventilation Qualified Code(s): E66.2 - Morbid (severe) obesity with alveolar hypoventilation (5) RUPERT (obstructive sleep apnea) Current Visit: No Status: Chronic Assessment and plan: Patient is not willing to try the CPAP mask. She says she tried 8-10 years ago which was very uncomfortable and is not willing to give another try. However we will consult respiratory for bedside assessment. - Time Spent With Patient 25 - 35 minutes - Subjective Interval history: Patient admitted for left-sided chest pain. History of DVT(2014) on Coumadin and Roxie filter. Seen at the bedside, reports that the chest pain is better , appears clinically better. Denies any shortness of breath, saturating 96% on 2l Denies any leg swelling or calf tenderness. on heparin drip for bridging as INR is subtherapeutic. - Constitutional Vitals: Temp Pulse Resp BP Pulse Ox 98.0 F 93 16 109/80 98 05/08/16 15:35 05/08/16 15:35 05/08/16 15:35 05/08/16 15:35 05/08/16 15:35 General appearance: Present: A&O X 3, morbidly obese, pleasant, no acute distress Exam: - Head Head exam: Present: atraumatic, normocephalic - Eye Eye exam: Present: PERRL, conjuntiva pink, sclera anicteric Pupils: Present: PERRL - Neck Neck exam general surgery: Present: supple, trachea midline. Absent: lymphadenopathy - Respiratory Respiratory exam: Present: CTAB. Absent: accessory muscle use, rales, rhonchi, wheezes - Cardiovascular Cardiovascular exam: Present: RRR, +S1, +S2. Absent: diastolic murmur, gallop, rubs, systolic murmur - GI/Abdominal GI/Abdominal exam: Present: normal bowel sounds, soft, no peritoneal signs. Absent: distended, tenderness - Extremities Exam Extremities exam: Present: warm, radial pulses palpable and symetrical. Absent : calf tenderness, cyanotic, pedal edema - Neurological Exam Neurological exam: Present: CN II-XII intact, oriented X3, no focal deficits. Absent: facial droop, speech deficit - Skin Skin exam: Present: dry, intact Internal Medicine: Result - Labs CBC & Chem 7: 05/08/16 05:27 05/08/16 05:27 Labs: Short CBC 05/08/16 Range/Units 05:27 WBC 6.1 (4.3-11.1) K/mcL Hgb 9.7 L (11.5-15.4) g/dL Hct 32.0 L (35.3-44.9) % Plt Count 201 (140-400) K/mcL Neutrophils # 3.0 (1.6-8.9) K/mcL BMP 05/08/16 05:27 Sodium 138 Potassium 4.1 Chloride 102 Carbon Dioxide 25 BUN 48 H D Creatinine 2.44 H Glucose 117 H Calcium 8.6 - ABG Interpretation ABG results: PT/INR, D-dimer PT 14.3 Seconds (9.4-12.1) H 05/08/16 05:27 Consult Discharge Plan - Plan Referrals: Mauro Dockery MD [Primary Care Provider] - 05/13/16 9:45 am ()
[2016-05-08] MEDS: clonazePAM 1 MG TABLET PO SCH (20:01)
[2016-05-08] MEDS: Furosemide 20 MG TABLET PO SCH ×2 (20:04→23:41)
[2016-05-08] MEDS: Acetaminophen 325 MG TABLET PO PRN (20:06)
[2016-05-09] MEDS: Heparin 25,000 UNIT/500 ML D5W 25,000 UNIT/500 ML MLS IVC SCH ×2 (05:02→17:23)
[2016-05-09 05:13] LABS: INR 1.4; Prothrombin Time 15.6 Seconds (9.4-12.1)
[2016-05-09 08:26] LABS: Basophils % 0.4 %; Eosinophils # 0.2 K/mcL (0.0-0.6); Eosinophils % 3.6 %; Hematocrit 31.4 % (35.3-44.9); Hemoglobin 9.4 g/dL (11.5-15.4); Immature Granulocytes % 0.5 % (0-4); Lymphocytes % 36.3 %; Mean Corpuscular HGB Conc 29.9 g/dL (31.6-35.5); Mean Corpuscular Hemoglobin 28.1 pg (28.0-33.3); Mean Corpuscular Volume 93.7 fL (83.0-100.0); Mean Platelet Volume 11.2 fL (9.4-12.4); Monocytes # 0.5 K/mcL (0.0-1.3); Neutrophils # 2.9 K/mcL (1.6-8.9); Platelet Count 226 K/mcL (140-400); Red Blood Count 3.35 M/mcL (3.82-4.97); Red Cell Distribution Width 17.1 % (11.5-14.5); Segmented Neutrophils % 51.2 %
[2016-05-09] MEDS: Insulin DETEMIR 100 UNIT/ML X5UNITS SQ SCH ×2 (08:31→21:31)
[2016-05-09] MEDS: Metoprolol XL (24 HR) Succ 25 MG TAB.ER.24H PO SCH (08:31)
[2016-05-09] MEDS: Furosemide 40 MG TABLET PO SCH (08:31)
[2016-05-09] MEDS: Gabapentin 300 MG CAPSULE PO SCH ×2 (08:31→21:39)
[2016-05-09] MEDS: Nystatin POWDER 30 GM BOTTLE TP SCH ×2 (08:32→21:39)
[2016-05-09] MEDS: Insulin LISPRO 300 UNITS/3 ML VIAL SQ SCH ×7 (08:32→21:30)
[2016-05-09] MEDS: Ammonium Lactate 30 APPL/225 GM BOTTLE TP SCH ×3 (08:33→21:38)
[2016-05-09 08:37] LABS: Calcium 8.5 mg/dL (8.6-10.8); Potassium 4.5 mEq/L (3.5-4.5)
[2016-05-09] MEDS: Acetaminophen 325 MG TABLET PO PRN ×2 (08:39→21:34)
--- NOTE | 2016-05-09 13:45 | Internal Med Progress Note ---
Date of Encounter: 05/07/16 Time of Encounter: 13:44 - Assessment and plan (1) Chest pain Current Visit: No Status: Acute Qualifiers: Chest pain type: unspecified Qualified Code(s): R07.9 - Chest pain, unspecified (2) Hx of deep venous thrombosis Current Visit: No Status: Acute (3) Non compliance with medical treatment Current Visit: No Status: Chronic (4) Morbid obesity Current Visit: No Status: Chronic Qualifiers: Obesity type: with alveolar hypoventilation Qualified Code(s): E66.2 - Morbid (severe) obesity with alveolar hypoventilation (5) RUPERT (obstructive sleep apnea) Current Visit: No Status: Chronic - Subjective Interval history: Patient admitted for left-sided chest pain. History of DVT(2014) on Coumadin and [place] filter. Seen at the bedside, reports that the chest pain is better , appears clinically better. Denies any shortness of breath, saturating 96% on 2l Denies any leg swelling or calf tenderness. on heparin drip for bridging as INR is subtherapeutic. - Constitutional Vitals: Temp Pulse Resp BP Pulse Ox 97.9 F 86 18 140/65 95 05/09/16 11:11 05/09/16 11:11 05/09/16 11:11 05/09/16 11:11 05/09/16 11:11 General appearance: Present: A&O X 3, morbidly obese, pleasant, no acute distress Internal Medicine: Result - Labs CBC & Chem 7: 05/09/16 04:17 05/09/16 04:17 Labs: Short CBC 05/09/16 Range/Units 04:17 WBC 5.6 (4.3-11.1) K/mcL Hgb 9.4 L (11.5-15.4) g/dL Hct 31.4 L (35.3-44.9) % Plt Count 226 (140-400) K/mcL Neutrophils # 2.9 (1.6-8.9) K/mcL BMP 05/09/16 04:17 Sodium 137 Potassium 4.5 Chloride 100 Carbon Dioxide 20 BUN 57 H Creatinine 2.33 H Glucose 182 H Calcium 8.5 L - ABG Interpretation ABG results: PT/INR, D-dimer PT 15.6 Seconds (9.4-12.1) H 05/09/16 04:17 Consult Discharge Plan - Plan Referrals: Mauro Dockery MD [Primary Care Provider] - 05/13/16 9:45 am ()
--- NOTE | 2016-05-09 17:02 | Discharge Summary ---
Date of Encounter: 05/07/16 Time of Encounter: 17:00 - Discharge Diagnosis (1) Chest pain Priority: Primary Status: Acute Qualifiers: Chest pain type: unspecified Qualified Code(s): R07.9 - Chest pain, unspecified (2) Hx of deep venous thrombosis Priority: Secondary Status: Acute (3) Non compliance with medical treatment Priority: Secondary Status: Chronic (4) Morbid obesity Priority: Secondary Status: Chronic Qualifiers: Obesity type: with alveolar hypoventilation Qualified Code(s): E66.2 - Morbid (severe) obesity with alveolar hypoventilation (5) RUPERT (obstructive sleep apnea) Priority: Secondary Status: Chronic - Discharge Medications Prescriptions: Warfarin perPT [Coumadin perPT] 6 each PO DAILY@1800 PRN #30 each PRN Reason: See Comments Home Medications: Cyclobenzaprine [Flexeril] 10 mg PO TID 09/12/14 [History] Docusate [Colace] 100 mg PO TID 09/12/14 [History] Doxepin [Sinequan] 50 mg PO HS 09/12/14 [History] Gabapentin [Neurontin] 300 mg PO BID 09/12/14 [History] Insulin ASPART [NovoLOG] 34 unit SQ QID 09/12/14 [History] Insulin Glargine,Hum.rec.anlog [Lantus Solostar] 75 unit SQ BID 09/12/14 [ History] Meclizine [Antivert] 25 mg PO TID 09/12/14 [History] Allopurinol [Zyloprim 100 MG] 100 mg PO DAILY 03/22/15 [History] ClonazePAM [Klonopin] 1 mg PO HS 03/22/15 [History] DiphenhydraMINE [Benadryl] 25 mg PO TID 03/22/15 [History] Exenatide Microspheres [Bydureon Pen] 2 mg SQ MO 03/22/15 [History] Lidocaine Patch [Lidoderm 5% patch] 1 - 3 patch TP DAILY 03/22/15 [History] Nitroglycerin [Nitrostat] 0.4 mg SL Q5M PRN 03/22/15 [History] Promethazine [Phenergan] 25 mg PO TID 03/22/15 [History] Isosorbide MONOnitrate (24 HR) [Imdur] 30 mg PO QPM 03/23/15 [History] Metoprolol XL (24 HR) Succ [Toprol Xl] 25 mg PO DAILY 07/31/15 [History] Warfarin [Coumadin] 4 mg PO Q48H 07/31/15 [History] Warfarin [Coumadin] 5 mg PO Q48H 07/31/15 [History] Furosemide [Lasix] 20 mg PO 1800,2330 03/02/16 [History] Furosemide [Lasix] 40 mg PO QAM 03/02/16 [History] Albuterol Neb [AccuNeb] 1.25 mg IH QID PRN 05/06/16 [History] Ammonium Lactate [Lac-Hydrin Five] 1 appl TP TID 05/06/16 [History] Levothyroxine [Synthroid] 250 mcg PO QAM 05/06/16 [History] Nystatin POWDER [Nystop] 1 appl TP BID 05/06/16 [History] Pantoprazole Sodium [Protonix] 40 mg PO DAILY 05/06/16 [History] Petrolatum,White [Aloe [place]] 1 appl TP BID 05/06/16 [History] Rosuvastatin [Crestor] 20 mg PO HS 05/06/16 [History] Warfarin perPT [Coumadin perPT] 6 each PO DAILY@1800 PRN #30 each 05/09/16 [Rx] Allergies/Adverse Reactions: Allergies aspirin Allergy (Verified 08/11/15 14:42) Hives cephalexin [From Keflex] Allergy (Verified 08/11/15 14:42) Difficulty Breathing codeine Allergy (Verified 08/11/15 14:42) Hypertension Cortisone Allergy (Verified 10/02/15 00:56) See Comments "made my arm tingle & didn't help my back pain" hydrocortisone Allergy (Verified 08/11/15 14:42) Hypertension ibuprofen Allergy (Verified 08/11/15 14:42) Hives Iodinated Contrast Media - Oral and [Iodinated Contrast Media - IV Dye] Allergy (Verified 08/11/15 14:42) See Comments lidocaine [From Xylocaine] Allergy (Verified 08/11/15 14:42) See Comments loratadine [From Claritin] Allergy (Verified 08/11/15 14:42) Hives methylprednisolone [From Solu-Medrol] Allergy (Verified 08/11/15 14:42) Hypertension Penicillins Allergy (Verified 08/11/15 14:42) See Comments prednisone Allergy (Verified 08/11/15 14:42) Hypertension Procaine [From Novocain] Allergy (Verified 08/11/15 14:42) See Comments propoxyphene [From Darvon] Allergy (Verified 08/11/15 14:42) See Comments pseudoephedrine [From Sudafed] Allergy (Verified 08/11/15 14:42) Hives ropinirole [From Requip] Allergy (Verified 08/11/15 14:42) See Comments Procedures/tests Complete & Pending: Procedures Performed prior 72 hours Category Date Time Status ECG 12 lead ECG [ECG] AM 0600 Y 05/07/16 06:00 Ordered Date of admission: 05/06/16 15:26 Primary care physician: Mauro Dockery MD Consults: 05/07/16 11:36 Consult to Respiratory Therapy [CONS] Routine Reason for Consult: Possible CPAP Call Completed: No Discharging clinician: Anastasia Snow Anticipated date of discharge: 05/09/16 - Patient Status Disposition: Home, Self-Care Condition: Fair Functional capacity at discharge: independent ambulation Overall status at discharge: patient is back to baseline - Discharge Instructions Follow Up With: Mauro Dockery MD [Primary Care Provider] - 05/13/16 9:45 am () - Diet and Activity Activity: resume usual activities as tolerated Diet: advance to your usual diet Interval History: Ms. Mars is a 61 year old female with hypertension, type 2 diabetes, congestive heart failure, COPD, history of DVT on Coumadin with [place] filter placement, morbid obesity who presented to the emergency department today with complaints of sharp stabbing chest Evaluation in the emergency department included an EKG which showed normal sinus rhythm, no ST elevation or ST depression, no acute changes noted. Chest x -ray showed no acute cardiopulmonary disease. Creatinine of 1.43 is at her baseline. INR is subtherapeutic at 1.2. serial trop was negative. While she has a [place] filter, we ordered a V/q scan to r/o PE as her INR is subtherapeutic. CTA is contraindicated due to kidney function. however she did not tolerate to lie flat thus v/q could not be completed. The chest pain subsided and seh was not hypoxic or tavhyvardic. clinically less likely PE at this time, however given history of DVT and subtherapeutic INR, she was started on heparin and INR is therapeutic. Patient had echocardiogram 03/03/16 which showed EF 60-65% withmild concentric LVH and mild LV diastolic dysfunction. Patient was noted to be noncompliant to the BiPAP as well as her medications. She refused to try the BiPAP mask even though she was recommended to use BiPAP given her morbid obesity. She was treated with Coumadin and heparin bridging, however the iNR is still subtherapeutic at 1.4. Given that she has no other medical reasons to remain hospitalized, she is being discharged home with instructions to give Lovenox shots to herself and follow-up with her PCP on Friday for INR check. Once her INR is therapeutic between 2 and 3, Lovenox should be discontinued. she is being dc on 6 mg daily of coumadin today in stable condition and is arranged to see her PCP on friday. Hospital course: Ms. Mars is a 61 year old female Time spent discussing smoking cessation with patient: more than 10 minutes - Time Spent with Patient Total time spent providing and/or coordinating discharge services: Greater than 30 minutes - Constitutional Vitals: Temp Pulse Resp BP Pulse Ox 97.7 F 85 16 160/66 92 L 05/09/16 15:40 05/09/16 15:40 05/09/16 15:40 05/09/16 15:40 05/09/16 15:40 General appearance: Present: A&O X 3, morbidly obese, pleasant, no acute distress Exam: - Head Head exam: Present: atraumatic, normocephalic - Eye Eye exam: Present: PERRL, conjuntiva pink, sclera anicteric Pupils: Present: PERRL - Neck Neck exam general surgery: Present: supple, trachea midline. Absent: lymphadenopathy - Respiratory Respiratory exam: Present: CTAB. Absent: accessory muscle use, rales, rhonchi, wheezes - Cardiovascular Cardiovascular exam: Present: RRR, +S1, +S2. Absent: diastolic murmur, gallop, rubs, systolic murmur - GI/Abdominal GI/Abdominal exam: Present: normal bowel sounds, soft, no peritoneal signs. Absent: distended, tenderness - Extremities Exam Extremities exam: Present: warm, radial pulses palpable and symetrical. Absent : calf tenderness, cyanotic, pedal edema - Neurological Exam Neurological exam: Present: CN II-XII intact, oriented X3, no focal deficits. Absent: facial droop, speech deficit - Skin Skin exam: Present: dry, intact
[2016-05-09] MEDS ORDERED: *HR* Warfarin 3 MG TABLET PO ONE (18:00)
[2016-05-09] MEDS ORDERED: *HR* Enoxaparin 150 MG/ML SYRINGE SQ SCH (18:00)
--- NOTE | 2016-05-09 18:09 | Event Note ---
Date of Encounter: 05/07/16 Time of Encounter: 18:08 dc held today as unable to follow up at coumadin clinic as she was not accepted due to non compliance to f/u.
[2016-05-09] MEDS: Isosorbide MONOnitrate (24 HR) 30 MG TAB.ER.24H PO SCH (18:11)
[2016-05-09] MEDS: Furosemide 20 MG TABLET PO SCH (18:12)
[2016-05-09] MEDS: clonazePAM 1 MG TABLET PO SCH (21:29)
[2016-05-10] MEDS: Furosemide 20 MG TABLET PO SCH (00:25)
[2016-05-10 05:34] LABS: INR 1.6; Prothrombin Time 17.2 Seconds (9.4-12.1)
[2016-05-10 05:37] LABS: Activated Partial Thrombo Time 29.3 Seconds (26.0-36.0)
[2016-05-10] MEDS: Insulin LISPRO 300 UNITS/3 ML VIAL SQ SCH ×4 (08:24→11:44)
[2016-05-10] MEDS: Insulin DETEMIR 100 UNIT/ML X5UNITS SQ SCH (08:27)
[2016-05-10] MEDS: Metoprolol XL (24 HR) Succ 25 MG TAB.ER.24H PO SCH (08:28)
[2016-05-10] MEDS: Gabapentin 300 MG CAPSULE PO SCH (08:28)
[2016-05-10] MEDS: Furosemide 40 MG TABLET PO SCH (08:28)
[2016-05-10] MEDS: Ammonium Lactate 30 APPL/225 GM BOTTLE TP SCH (08:29)
[2016-05-10] MEDS: Nystatin POWDER 30 GM BOTTLE TP SCH (08:29)
[2016-05-10 11:35] VITALS: BP 140/67
--- NOTE | 2016-05-10 12:57 | Physician Discharge Referral ---
Home Health/Hosp Referral Info Transfer to: Home Health Attending Provider: anabel jones - Diagnosis (1) Chest pain Status: Acute (2) Hx of deep venous thrombosis Status: Acute (3) Non compliance with medical treatment Status: Chronic (4) Morbid obesity Status: Chronic (5) RUPERT (obstructive sleep apnea) Status: Chronic - Respiratory Orders Smoking Cessation: Smoking cessation has been advised. For more information, call the [employer] Tobacco Quit Line at 2-945-XTHB-NOW. - Diet/Nutrition Diet/Nutrition Orders: Regular - Activity Activity Orders: Up ad [place] - Services Needed Following services are medically necessary services: Home Health Aide - Transfer Medications Prescriptions: Warfarin [Coumadin] 5 mg PO 1800 #30 tablet Warfarin perPT [Coumadin perPT] 6 each PO DAILY@1800 PRN #30 each PRN Reason: See Comments Home Medications: Cyclobenzaprine [Flexeril] 10 mg PO TID 09/12/14 [History] Docusate [Colace] 100 mg PO TID 09/12/14 [History] Doxepin [Sinequan] 50 mg PO HS 09/12/14 [History] Gabapentin [Neurontin] 300 mg PO BID 09/12/14 [History] Insulin ASPART [NovoLOG] 34 unit SQ QID 09/12/14 [History] Insulin Glargine,Hum.rec.anlog [Lantus Solostar] 75 unit SQ BID 09/12/14 [ History] Meclizine [Antivert] 25 mg PO TID 09/12/14 [History] Allopurinol [Zyloprim 100 MG] 100 mg PO DAILY 03/22/15 [History] ClonazePAM [Klonopin] 1 mg PO HS 03/22/15 [History] DiphenhydraMINE [Benadryl] 25 mg PO TID 03/22/15 [History] Exenatide Microspheres [Bydureon Pen] 2 mg SQ MO 03/22/15 [History] Lidocaine Patch [Lidoderm 5% patch] 1 - 3 patch TP DAILY 03/22/15 [History] Nitroglycerin [Nitrostat] 0.4 mg SL Q5M PRN 03/22/15 [History] Promethazine [Phenergan] 25 mg PO TID 03/22/15 [History] Isosorbide MONOnitrate (24 HR) [Imdur] 30 mg PO QPM 03/23/15 [History] Metoprolol XL (24 HR) Succ [Toprol Xl] 25 mg PO DAILY 07/31/15 [History] Warfarin [Coumadin] 4 mg PO Q48H 07/31/15 [History] Warfarin [Coumadin] 5 mg PO Q48H 07/31/15 [History] Furosemide [Lasix] 20 mg PO 1800,2330 03/02/16 [History] Furosemide [Lasix] 40 mg PO QAM 03/02/16 [History] Albuterol Neb [AccuNeb] 1.25 mg IH QID PRN 05/06/16 [History] Ammonium Lactate [Lac-Hydrin Five] 1 appl TP TID 05/06/16 [History] Levothyroxine [Synthroid] 250 mcg PO QAM 05/06/16 [History] Nystatin POWDER [Nystop] 1 appl TP BID 05/06/16 [History] Pantoprazole Sodium [Protonix] 40 mg PO DAILY 05/06/16 [History] Petrolatum,White [Aloe [place]] 1 appl TP BID 05/06/16 [History] Rosuvastatin [Crestor] 20 mg PO HS 05/06/16 [History] Warfarin perPT [Coumadin perPT] 6 each PO DAILY@1800 PRN #30 each 05/09/16 [Rx] Warfarin [Coumadin] 5 mg PO 1800 #30 tablet 05/10/16 [Rx] Allergies/Adverse Reactions: Allergies aspirin Allergy (Verified 08/11/15 14:42) Hives cephalexin [From Keflex] Allergy (Verified 08/11/15 14:42) Difficulty Breathing codeine Allergy (Verified 08/11/15 14:42) Hypertension Cortisone Allergy (Verified 10/02/15 00:56) See Comments "made my arm tingle & didn't help my back pain" hydrocortisone Allergy (Verified 08/11/15 14:42) Hypertension ibuprofen Allergy (Verified 08/11/15 14:42) Hives Iodinated Contrast Media - Oral and [Iodinated Contrast Media - IV Dye] Allergy (Verified 08/11/15 14:42) See Comments lidocaine [From Xylocaine] Allergy (Verified 08/11/15 14:42) See Comments loratadine [From Claritin] Allergy (Verified 08/11/15 14:42) Hives methylprednisolone [From Solu-Medrol] Allergy (Verified 08/11/15 14:42) Hypertension Penicillins Allergy (Verified 08/11/15 14:42) See Comments prednisone Allergy (Verified 08/11/15 14:42) Hypertension Procaine [From Novocain] Allergy (Verified 08/11/15 14:42) See Comments propoxyphene [From Darvon] Allergy (Verified 08/11/15 14:42) See Comments pseudoephedrine [From Sudafed] Allergy (Verified 08/11/15 14:42) Hives ropinirole [From Requip] Allergy (Verified 08/11/15 14:42) See Comments Certification: Further, I certify that my clinical findings support that this patient is homebound (i.e. absences from home require considerable and taxing effort and are for medical reasons or [facility] or infrequently or short duration when for other reasons) because: Homebound Reason: Patient requires assistance of a person or device to safely leave home Attestation: My signature below is to certify that this patient is under my care and that I, or nurse practitioner, or a physician's administrative office assistant working with me, has a face-to -face encounter with this patient.
--- NOTE | 2016-05-10 17:05 | Event Note ---
Date of Encounter: 05/10/16 Time of Encounter: 17:04 Patient being discharged in stable condition. Patient with the Lovenox shots by herself at home along with Coumadin. She will follow-up with PCP on Friday for INR check. discharge summary refer to 05/09
[2016-05-10] MEDS ORDERED: *HR* Warfarin 5 MG TABLET PO ONE (18:00)
== END 2016-05-10 12:57 | disposition home or self-care (01) ==
LOC: EMEROO 13:09 → 2ANU 13:09 → SUATTDRO 15:26 → 2ANU 16:46
PROVIDERS: ADMIT Nurse Practitioner Family; ATTEND Internal Medicine Endocrinology, Diabetes & Metabolism

== ENCOUNTER 2016-11-10 03:37 | Observation (INO) ==
--- NOTE | 2016-11-10 03:51 | Emergency Department Note ---
Disposition Clinical Impression: Lower extremity edema Chest pain Qualifiers: Chest pain type: unspecified Qualified Code(s): R07.9 - Chest pain, unspecified [id number] kidney injury Qualifiers: Acute renal failure type: unspecified Chronic kidney disease stage: unspecified stage Qualified Code(s): N17.9 - Acute kidney failure, unspecified Disposition: Admitted As Inpatient Condition: Undetermined Time of Disposition: 04:40 Chest Pain HPI - General Chief Complaint: ED Chest Pain Stated Complaint: chest pain Time Seen by Provider: 11/10/16 03:48 Source: patient Mode of arrival: wheelchair Limitations: no limitations Vital Signs Reviewed: Yes Nursing Notes Reviewed: Yes - History of Present Illness HPI Narrative: 61-year-old female with history of hypertension, hyperlipidemia, diabetes arrives to emergency room department complaining of left-sided chest pain that began roughly 2-3 days ago with progression and radiation of the pain down the left upper extremity. The patient states she has associated shortness of breath with this. The patient denies any previous history of UT but does state she has a history of congestive heart failure. The patient states that she is unable to receive a stress test due to inability to cooperate with the test itself. The patient denies any other complaints at this time. She is able to ambulate with assistance. She does appear slightly short of breath after ambulation but after laying down for a few seconds she quickly gains her breath. The patient has no signs of tachycardia, hypoxia. The patient is hypertensive at this time with a systolic blood pressure 158. The patient states this is baseline for her. Pt complaint: chest pain Onset (ago): day(s) (2) Duration: constant, gradually worsening Onset: during exertion Pain Location: left chest Severity: moderate, severe Severity scale (1-10): 8 Quality: heaviness Pain Radiation: LUE Improves with: nothing Worsens with: nothing Associated symptoms: Reports: dyspnea Treatments prior to arrival chest pain: none - Related Data On Oral Contraceptives: No Home Medications Medication Instructions Recorded Confirmed Cyclobenzaprine [Flexeril] 10 mg PO TID 09/12/14 05/06/16 Docusate [Colace] 100 mg PO TID 09/12/14 05/06/16 Doxepin [Sinequan] 50 mg PO HS 09/12/14 05/06/16 Gabapentin [Neurontin] 300 mg PO BID 09/12/14 05/06/16 Insulin ASPART [NovoLOG] 34 unit SQ QID 09/12/14 05/06/16 Insulin Glargine,Hum.rec.anlog 75 unit SQ BID 09/12/14 05/06/16 [Lantus Solostar] Meclizine [Antivert] 25 mg PO TID 09/12/14 05/06/16 Allopurinol [Zyloprim 100 MG] 100 mg PO DAILY 03/22/15 05/06/16 DiphenhydraMINE [Benadryl] 25 mg PO TID 03/22/15 05/06/16 Exenatide Microspheres [Bydureon 2 mg SQ MO 03/22/15 05/06/16 Pen] Lidocaine Patch [Lidoderm 5% patch] 1 - 3 patch TP DAILY 03/22/15 05/06/16 Nitroglycerin [Nitrostat] 0.4 mg SL Q5M PRN 03/22/15 05/06/16 Promethazine [Phenergan] 25 mg PO TID 03/22/15 05/06/16 clonazePAM [Klonopin] 1 mg PO HS 03/22/15 05/06/16 Isosorbide MONOnitrate (24 HR) 30 mg PO QPM 03/23/15 05/06/16 [Imdur] Metoprolol XL (24 HR) Succ [Toprol 25 mg PO DAILY 07/31/15 05/06/16 Xl] Warfarin [Coumadin] 4 mg PO Q48H 07/31/15 05/06/16 Warfarin [Coumadin] 5 mg PO Q48H 07/31/15 05/06/16 Furosemide [Lasix] 20 mg PO 1800,2330 03/02/16 05/06/16 Furosemide [Lasix] 40 mg PO QAM 03/02/16 05/06/16 Albuterol Neb [AccuNeb] 1.25 mg IH QID PRN 05/06/16 05/06/16 Ammonium Lactate [Lac-Hydrin Five] 1 appl TP TID 05/06/16 05/06/16 Levothyroxine [Synthroid] 250 mcg PO QAM 05/06/16 05/06/16 Nystatin POWDER [Nystop] 1 appl TP BID 05/06/16 05/06/16 Pantoprazole Sodium [Protonix] 40 mg PO DAILY 05/06/16 05/06/16 Petrolatum,White [Aloe [place]] 1 appl TP BID 05/06/16 05/06/16 Rosuvastatin [Crestor] 20 mg PO HS 05/06/16 05/06/16 Previous Rx's Medication Instructions Recorded Warfarin perPT [Coumadin perPT] 6 each PO DAILY@1800 PRN #30 each 05/09/16 Warfarin [Coumadin] 5 mg PO 1800 #30 tablet 05/10/16 predniSONE [PredniSONE] 60 mg PO DAILY 3 Days tablet 05/16/16 Acetaminophen [Tylenol] 650 mg PO Q6HR #40 tablet 05/20/16 Doxycycline 100 mg PO BID #10 capsule 05/20/16 Allergies Allergy/AdvReac Type Severity Reaction Status Date / Time aspirin Allergy Hives Verified 05/16/16 01:37 cephalexin [From Keflex] Allergy Difficulty Verified 05/16/16 01:37 Breathing codeine Allergy Hypertensio Verified 05/16/16 01:37 n Cortisone Allergy See Verified 05/16/16 01:37 Comments hydrocortisone Allergy Hypertensio Verified 05/16/16 01:37 n ibuprofen Allergy Hives Verified 05/16/16 01:37 Iodinated Contrast- Oral and Allergy See Verified 05/16/16 01:37 IV Dye Comments [Iodinated Contrast Media - IV Dye] lidocaine [From Xylocaine] Allergy See Verified 05/16/16 01:37 Comments loratadine [From Claritin] Allergy Hives Verified 05/16/16 01:37 methylprednisolone Allergy Hypertensio Verified 05/16/16 01:37 [From Solu-Medrol] n Penicillins Allergy See Verified 05/16/16 01:37 Comments prednisone Allergy Hypertensio Verified 05/16/16 01:37 n Procaine [From Novocain] Allergy See Verified 05/16/16 01:37 Comments propoxyphene [From Darvon] Allergy See Verified 05/16/16 01:37 Comments pseudoephedrine Allergy Hives Verified 05/16/16 01:37 [From Sudafed] ropinirole [From Requip] Allergy See Verified 05/16/16 01:37 Comments tramadol AdvReac See Verified 05/20/16 15:19 Comments All systems ED: reviewed and negative except as stated. Constitutional: Denies: fever, chills, weakness, weight change Cardiovascular: Reports: chest pain, dyspnea on exertion, orthopnea, edema. Denies: palpitations, syncope Respiratory: Reports: dyspnea. Denies: cough, wheezes, hemoptysis, stridor Gastrointestinal: Denies: abdominal pain, nausea, vomiting, diarrhea, constipation, hematemesis, melena, hematochezia Musculoskeletal: Denies: back pain, neck pain, arthralgia, myalgia Integumentary: Denies: rash, abrasion, lesions Chest Pain PMH - Past Medical History Medical history: Reports: arthritis, CHF, COPD, DVT, diabetes, GERD, hyperlipidemia, hypertension, migraine, osteoporosis, renal disease, thyroid disease, other Surgical history: Reports: hysterectomy, other Psychiatric history: Reports: anxiety, depression [employer]ESSION[employer] history: Reports: bilateral 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 - Social History Smoking Status: Former smoker Alcohol use: Reports: none Drug use: Reports: none Physical Exam - General Limitations: no limitations General appearance: alert, in no apparent distress - Head Head exam: atraumatic, normocephalic, normal inspection - Neck Neck exam: Present: normal inspection, full ROM, trachea midline - Chest Chest inspection: Present: normal inspection, symmetric chest wall rise - Respiratory Respiratory exam: Present: other (Coarse breath sounds) - Cardiovascular Cardiovascular exam: Present: regular rate, normal rhythm, normal heart sounds - Abdominal Exam Abdominal exam: Present: soft, Non-Tender. Absent: tenderness, distention, guarding, rebound, rigidity - Extremities Exam Extremities exam: Present: full ROM, pedal edema - Neurological Exam Neurological exam: Present: alert, oriented X3 - Skin Skin exam: Present: warm, dry, intact, normal color, other (Chronic venous stasis changes) Course Vital Signs Temperature 97.7 F 11/10/16 03:38 Pulse Rate 78 11/10/16 03:38 Respiratory Rate 16 11/10/16 03:38 Blood Pressure 159/85 11/10/16 03:38 O2 Sat by Pulse Oximetry 97 11/10/16 03:38 Temperature 97.7 F 11/10/16 03:38 Pulse Rate 78 11/10/16 03:38 Respiratory Rate 16 11/10/16 03:38 Blood Pressure 159/85 11/10/16 03:38 O2 Sat by Pulse Oximetry 96 11/10/16 03:55 Oxygen Delivery Oxygen Delivery Room Air Chest Pain - MDM Narrative Medical decision making narrative: Patient states that the nitroglycerin did relieve some of her chest pain. We will admit the patient to the hospital for ACS rule out. The patient has a mildly elevated BNP and a grossly negative chest x-ray. The patient does feel little bit better with shortness of breath as well after receiving the nitroglycerin. Her workup here in the emergency department demonstrates no other acute finding with the exception of a mildly elevated renal function. This appears to be acute on chronic kidney disease. The patient's creatinine is a little bit more elevated than it typically is but is grossly baseline. Patient made aware and agrees to plan. We will contact the hospitalist at this time and admit to them. Accepted by Dr. Lopez. - Medical Records Medical records reviewed: Yes I reviewed the patient's medical records. - Lab Data Lab results reviewed: Yes I reviewed the patient's lab results. Result diagrams: 11/10/16 03:50 11/10/16 03:50 Lab Results 11/10/16 11/10/16 11/10/16 Range/Units 03:50 03:50 03:50 WBC 6.0 (4.3-11.1) K/mcL RBC 3.26 L (3.82-4.97) M/mcL Hgb 9.5 L (11.5-15.4) g/dL Hct 32.1 L (35.3-44.9) % MCV 98.5 (83.0-100.0) fL MCH 29.1 (28.0-33.3) pg MCHC 29.6 L (31.6-35.5) g/dL RDW 17.3 H (11.5-14.5) % Plt Count 240 (140-400) K/mcL MPV 10.5 (9.4-12.4) fL Immature Gran % 0.5 (0-4) % Seg Neutrophils % 59.8 % Lymphocytes % 26.0 % Monocytes % 9.0 % Eosinophils % 4.2 % Basophils % 0.5 % Neutrophils # 3.6 (1.6-8.9) K/mcL Lymphocytes # 1.6 (0.6-4.6) K/mcL Monocytes # 0.5 (0.0-1.3) K/mcL Eosinophils # 0.3 (0.0-0.6) K/mcL Basophils # 0.0 (0.0-0.2) K/mcL Platelet Estimate Normal (Normal) Polychromasia 2+ A (Not Present) Anisocytosis 1+ A (Not Present) Macrocytosis Present A (Not Present) Sodium 139 (136-145) mEq/L Potassium 5.2 H (3.5-4.5) mEq/L Chloride 107 (98-109) mEq/L Carbon Dioxide 20 (19-29) mEq/L BUN 41 H (7-20) mg/dL Creatinine 2.42 H (0.57-1.11) mg/dL Est GFR ( Amer) 24 L (> 60) Est GFR (Non-Af Amer) 20 L (> 60) BUN/Creatinine Ratio 17 (6-26) Glucose 178 H (70-99) mg/dL Calculated Osmolality 303 H (280-300) Calcium 8.5 L (8.6-10.8) mg/dL Troponin I 0.03 (0-0.03) ng/mL B-Natriuretic Peptide (0-100) pg/mL 11/10/16 Range/Units 03:50 WBC (4.3-11.1) K/mcL RBC (3.82-4.97) M/mcL Hgb (11.5-15.4) g/dL Hct (35.3-44.9) % MCV (83.0-100.0) fL MCH (28.0-33.3) pg MCHC (31.6-35.5) g/dL RDW (11.5-14.5) % Plt Count (140-400) K/mcL MPV (9.4-12.4) fL Immature Gran % (0-4) % Seg Neutrophils % % Lymphocytes % % Monocytes % % Eosinophils % % Basophils % % Neutrophils # (1.6-8.9) K/mcL Lymphocytes # (0.6-4.6) K/mcL Monocytes # (0.0-1.3) K/mcL Eosinophils # (0.0-0.6) K/mcL Basophils # (0.0-0.2) K/mcL Platelet Estimate (Normal) Polychromasia (Not Present) Anisocytosis (Not Present) Macrocytosis (Not Present) Sodium (136-145) mEq/L Potassium (3.5-4.5) mEq/L Chloride (98-109) mEq/L Carbon Dioxide (19-29) mEq/L BUN (7-20) mg/dL Creatinine (0.57-1.11) mg/dL Est GFR ( Amer) (> 60) Est GFR (Non-Af Amer) (> 60) BUN/Creatinine Ratio (6-26) Glucose (70-99) mg/dL Calculated Osmolality (280-300) Calcium (8.6-10.8) mg/dL Troponin I (0-0.03) ng/mL B-Natriuretic Peptide 152 H (0-100) pg/mL - Radiology Data Radiology results reviewed: Yes I reviewed the patient's radiology results. - EKG Data EKG attestation: Yes I reviewed and interpreted this EKG. EKG results narrative: Heart rate 81 bpm. AK interval 183 ms. QTC 394 seconds. Normal axis. Normal sinus rhythm. No ST elevation or ST depression noted. EKG similar to EKG from 05/20/2016. No acute changes noted. Attestation Statement - Attestation Attestation: I, Leander Wright MD, personally evaluated this patient and discussed their management with the resident physician. I reviewed the resident's note and agree with the documented findings, medical decision making, and plan of care. 61-year-old obese female presents to the emergency department with a complaint of some increasing substernal chest pains over the past few days. Also some increased shortness of breath. She feels that she has increased swelling of her lower extremities. She also complains of some tingling and numbness in the left arm associated with the chest pain. On examination patient is a well-developed morbidly obese elderly female in no acute distress. She is alert and oriented 3. There is no cyanosis or diaphoresis. Chest is nontender to palpation. Breath sounds are clear and equal bilaterally. Heart regular rate and rhythm. Abdomen soft and nontender with normal bowel sounds. Chronic-appearing pitting edema of the lower extremities bilaterally with some chronic skin changes. No acute changes on EKG. Chest x-ray negative. Labs reviewed. The hospitalist, Dr. Lopez, was consulted and accepted admission of the patient.
[2016-11-10] MEDS ORDERED: Nitroglycerin 0.4 MG TAB.SUBL SL PRN ×2 (03:55→11:04)
[2016-11-10 04:04] LABS: Eosinophils % 4.2 %; Immature Granulocytes % 0.5 % (0-4); Mean Corpuscular Volume 98.5 fL (83.0-100.0)
[2016-11-10 04:05] LABS: Basophils % 0.5 %; Eosinophils # 0.3 K/mcL (0.0-0.6); Hematocrit 32.1 % (35.3-44.9); Hemoglobin 9.5 g/dL (11.5-15.4); Lymphocytes # 1.6 K/mcL (0.6-4.6); Mean Corpuscular HGB Conc 29.6 g/dL (31.6-35.5); Mean Corpuscular Hemoglobin 29.1 pg (28.0-33.3); Mean Platelet Volume 10.5 fL (9.4-12.4); Monocytes # 0.5 K/mcL (0.0-1.3); Neutrophils # 3.6 K/mcL (1.6-8.9); Platelet Count 240 K/mcL (140-400); Red Blood Count 3.26 M/mcL (3.82-4.97); Red Cell Distribution Width 17.3 % (11.5-14.5); Segmented Neutrophils % 59.8 %
[2016-11-10 04:17] LABS: Calcium 8.5 mg/dL (8.6-10.8)
[2016-11-10 04:18] LABS: Potassium 5.2 mEq/L (3.5-4.5)
[2016-11-10 04:22] LABS: Anisocytosis 1+ (Not Present); Macrocytosis Present (Not Present); Platelet Estimate Normal (Normal); Polychromasia 2+ (Not Present)
[2016-11-10] MEDS ORDERED: Calcium Gluconate 1,000 MG in D5% in Water 100 ML IVPB ONE (04:40)
[2016-11-10] MEDS ORDERED: Sodium Bicarbonate 50 MEQ/50 ML VIAL IVP ONE (04:40)
--- NOTE | 2016-11-10 10:53 | Internal Med History&Physical ---
Date of Encounter: 11/10/16 Time of Encounter: 10:50 Assessment and Plan (1) DVT prophylaxis Current visit: No Status: Acute We will check INR. If necessary will start subcutaneous Lovenox. (2) HTN (hypertension) Current visit: No Status: Chronic Resumed oral antihypertensive medication regimen. Qualifiers: Hypertension type: essential hypertension Qualified Code(s): I10 - Essential (primary) hypertension (3) RUPERT (obstructive sleep apnea) Current visit: No Status: Chronic Patient reports that she does not tolerate any form of CPAP. We will monitor. (4) Hx of deep venous thrombosis Current visit: No Status: Acute She is currently anticoagulated with Coumadin. We will check INR and continue Coumadin. (5) Morbid obesity with BMI of 60.0-69.9, adult Current visit: No Status: Acute Outpatient weight loss regimen lifestyle modifications recommended. (6) Acute worsening of stage 3 chronic kidney disease Current visit: No Status: Acute Baseline creatinine is 2.0.. We will avoid nephrotoxins, obtain strict I's and O's, monitor BUN and creatinine daily. Hold Lasix for now due to clinical dehydration. (7) Chest pain Current visit: Yes Status: Acute She has atypical chest pain, however she has multiple risk factors for CAD and no prior workup. She states that they attempted to do a stress test 3 times in the past and she did not tolerated. She reports passing out last time during a stress test. We will place the patient on telemetry. Trend troponin. We will treat the pain with nitroglycerin and Tylenol. Obtain echocardiogram. Consult cardiology to evaluate for possible different stress test modality versus need for cardiac catheterization. Patient is allergic to aspirin. Qualifiers: Chest pain type: precordial pain Qualified Code(s): R07.2 - Precordial pain (8) Type 2 diabetes mellitus Current visit: No Status: Acute Diabetic diet. Insulin sliding scale, pre-meal and basal. Qualifiers: Diabetes mellitus complication status: with neurologic complications Diabetes mellitus complication detail: with polyneuropathy Diabetes mellitus mcfp insulin use: with mcfp use Qualified Code(s): E11.42 - Type 2 diabetes mellitus with diabetic polyneuropathy; Z79.4 - detention (current) use of insulin (9) Hyperkalemia Current visit: Yes Status: Acute Low potassium diet. EKG shows no peaked T waves. We will continue to monitor Internal Medicine - H&P: HPI Chief complaint: Chest pain Admitted From: Emergency Dept Plans for Post Hospital Care: Home History of present illness: Ms. Mars is a 61 year old female with multiple medical comorbidities including hypertension, diabetes, morbid obesity and obstructive sleep apnea who presented to the hospital due to severe, 8/10, substernal, sharp chest pain which started earlier this morning. Pain radiates to the left upper extremity. She reports association with shortness of breath, no aggravating or alleviating factors. Workup in the emergency department included a chest x-ray and EKG which were grossly normal. Troponin was negative. Patient was referred for admission. A 10 point review of systems was performed. Pertinent positives as above. Additionally positive for chronic joint pain specifically in the left shoulder, chronic depression, diarrhea and constipation, chronic shortness of breath and dyspnea on exertion. Family history positive for widespread metastatic cancer in patient's mother. Social history: She is a former smoker. Quit 8 years ago. Denies alcohol and drug use. Past Med Surg Social Fam HX - Past Medical History Medical history: arthritis, CHF, COPD, DVT, diabetes, GERD, hyperlipidemia, hypertension, migraine, osteoporosis, renal disease, thyroid disease, other Psychiatric history: anxiety, depression - Past Surgical History Surgical History: appendectomy, hysterectomy, orthopedic, other, other, IVC filter - Social History Smoking Status: Former smoker Smokeless Tobacco Status: No Alcohol use: none Drug use: none - Family History Mother Living Status: Hx Family Cardiac Disorders: Yes Hx Family Cancer: Yes Hx Family Endocrine Disorder: Yes (DIABETES MELLITUS.) Internal Medicine - H&P: Meds Cyclobenzaprine [Flexeril] 10 mg PO TID 09/12/14 [History] Docusate [Colace] 100 mg PO TID 09/12/14 [History] Doxepin [Sinequan] 50 mg PO HS 09/12/14 [History] Gabapentin [Neurontin] 300 mg PO TID 09/12/14 [History] Insulin ASPART [NovoLOG] 34 unit SQ QID 09/12/14 [History] Insulin Glargine,Hum.rec.anlog [Lantus Solostar] 75 unit SQ BID 09/12/14 [ History] Meclizine [Antivert] 25 mg PO TID 09/12/14 [History] Allopurinol [Zyloprim 100 MG] 100 mg PO DAILY 03/22/15 [History] DiphenhydraMINE [Benadryl] 25 mg PO TID 03/22/15 [History] Exenatide Microspheres [Bydureon Pen] 2 mg SQ MO 03/22/15 [History] Lidocaine Patch [Lidoderm 5% patch] 1 - 3 patch TP DAILY 03/22/15 [History] Nitroglycerin [Nitrostat] 0.4 mg SL Q5M PRN 03/22/15 [History] Promethazine [Phenergan] 25 mg PO TID 03/22/15 [History] clonazePAM [Klonopin] 1 mg PO HS 03/22/15 [History] Isosorbide MONOnitrate (24 HR) [Imdur] 30 mg PO QPM 03/23/15 [History] Metoprolol XL (24 HR) Succ [Toprol Xl] 25 mg PO DAILY 07/31/15 [History] Warfarin [Coumadin] 4 mg PO Q48H 07/31/15 [History] Warfarin [Coumadin] 5 mg PO Q48H 07/31/15 [History] Furosemide [Lasix] 20 mg PO 1800,2330 03/02/16 [History] Furosemide [Lasix] 40 mg PO QAM 03/02/16 [History] Albuterol Neb [AccuNeb] 1.25 mg IH QID PRN 05/06/16 [History] Ammonium Lactate [Lac-Hydrin Five] 1 appl TP TID 05/06/16 [History] Levothyroxine [Synthroid] 250 mcg PO QAM 05/06/16 [History] Nystatin POWDER [Nystop] 1 appl TP QID 05/06/16 [History] Petrolatum,White [Aloe [place]] 1 appl TP BID 05/06/16 [History] Rosuvastatin [Crestor] 20 mg PO HS 05/06/16 [History] Acetaminophen [Tylenol] 650 mg PO TID 11/10/16 [History] Doxycycline 100 mg PO BID 11/10/16 [History] Omeprazole [PriLOSEC] 40 mg PO DAILY 11/10/16 [History] 3 Allergy/AdvReac Type Severity Reaction Status Date / Time aspirin Allergy Hives Verified 05/16/16 01:37 cephalexin [From Keflex] Allergy Difficulty Verified 05/16/16 01:37 Breathing codeine Allergy Hypertensio Verified 05/16/16 01:37 n Cortisone Allergy See Verified 05/16/16 01:37 Comments hydrocortisone Allergy Hypertensio Verified 05/16/16 01:37 n ibuprofen Allergy Hives Verified 05/16/16 01:37 Iodinated Contrast- Oral and Allergy See Verified 05/16/16 01:37 IV Dye Comments [Iodinated Contrast Media - IV Dye] lidocaine [From Xylocaine] Allergy See Verified 05/16/16 01:37 Comments loratadine [From Claritin] Allergy Hives Verified 05/16/16 01:37 methylprednisolone Allergy Hypertensio Verified 05/16/16 01:37 [From Solu-Medrol] n Penicillins Allergy See Verified 05/16/16 01:37 Comments prednisone Allergy Hypertensio Verified 05/16/16 01:37 n Procaine [From Novocain] Allergy See Verified 05/16/16 01:37 Comments propoxyphene [From Darvon] Allergy See Verified 05/16/16 01:37 Comments pseudoephedrine Allergy Hives Verified 05/16/16 01:37 [From Sudafed] ropinirole [From Requip] Allergy See Verified 05/16/16 01:37 Comments tramadol AdvReac See Verified 05/20/16 15:19 Comments All Systems PM: A 10-system review of systems was performed and is negative for pertinent findings except as documented above in the HPI. - Constitutional Vitals: Temp Pulse Resp BP Pulse Ox 97.6 F 79 18 203/92 99 11/10/16 07:19 11/10/16 07:19 11/10/16 07:19 11/10/16 07:19 11/10/16 07:19 General appearance: Present: A&O X 3, morbidly obese, no acute distress - Respiratory Respiratory exam: Present: CTAB. Absent: accessory muscle use, rales, rhonchi, wheezes Additional comments: Tender to palpation over entire sternal area and left rib cage - Cardiovascular Cardiovascular exam: Present: RRR, +S1, +S2. Absent: diastolic murmur, gallop, rubs, systolic murmur - GI/Abdominal GI/Abdominal exam: Present: normal bowel sounds, soft, no peritoneal signs. Absent: distended, tenderness - Extremities Exam Extremities exam: Present: warm, radial pulses palpable and symmetrical. Absent : calf tenderness, cyanotic, pedal edema - Skin Skin exam: Present: dry, intact Internal Med - H&P Results - Labs CBC & Chem 7: 11/10/16 03:50 11/10/16 03:50 - EKG Data -: EKG Interpreted by Myself EKG shows normal: sinus rhythm, intervals (Incomplete right bundle branch block. ) Rate: normal - EKG Data Prior EKG available for review: yes When compared to previous EKG: there is no significant change
[2016-11-10] MEDS ORDERED: Naloxone 0.4 MG/ML INJ IVP PRN (11:11)
[2016-11-10] MEDS ORDERED: Acetaminophen 325 MG TABLET PO PRN (11:11)
[2016-11-10] MEDS ORDERED: *HR* Morphine 2 MG/ML SYRINGE IVP PRN (11:11)
[2016-11-10] MEDS ORDERED: *HR* Promethazine 25 MG/ML VIAL IVP PRN (11:11)
[2016-11-10 11:16] LABS: INR 1.8; Prothrombin Time 20.1 Seconds (9.4-12.1)
[2016-11-10 11:19] LABS: Activated Partial Thrombo Time 29.8 Seconds (26.0-36.0)
[2016-11-10] MEDS ORDERED: D5% in Water 1,000 ML IVC PRN (11:22)
[2016-11-10] MEDS ORDERED: *HR* Dextrose 50 % in Water (Syg) 50 ML SYRINGE IVP PRN (11:22)
[2016-11-10] MEDS ORDERED: Dextrose Gel 15 GM PO PRN ×2 (11:22)
[2016-11-10] MEDS ORDERED: 0.9 % Sodium Chloride 1,000 ML IVC SCH (11:30)
[2016-11-10 13:01] LABS: Hemoglobin A1C 6.8 %
[2016-11-10] MEDS: Doxycycline 100 MG CAPSULE PO SCH ×2 (13:14→20:46)
[2016-11-10] MEDS: Gabapentin 300 MG CAPSULE PO SCH ×3 (13:15→20:45)
[2016-11-10] MEDS: Metoprolol XL (24 HR) Succ 25 MG TAB.ER.24H PO SCH (13:16)
[2016-11-10] MEDS: Insulin LISPRO 300 UNITS/3 ML VIAL SQ SCH ×4 (13:17→16:53)
[2016-11-10] MEDS: Ammonium Lactate 30 APPL/225 GM BOTTLE TP SCH ×2 (13:18→22:46)
[2016-11-10] MEDS ORDERED: Perflutren Lipid Microsphere 1.3 ML in 0.9 % Sodium Chloride 8.7 ML IVP ONE (14:04)
[2016-11-10] MEDS: Nystatin POWDER 30 GM BOTTLE TP SCH ×3 (15:39→22:46)
[2016-11-10] MEDS ORDERED: Albuterol 2.5 MG/3 ML NEBULIZER IH PRN (16:00)
--- NOTE | 2016-11-10 16:24 | Cardiology Consult Note ---
Date of Encounter: 11/10/16 Time of Encounter: 15:40 Assessment and Plan (1) Chest pain Current Visit: Yes Status: Acute Chest pain atypical, has ruled out for acute myocardial necrosis by EKG and enzematic criteria. Difficult situation, pt refusing stress imaging and left heart cath to identify possible ischemic substrate. Will maximize antianginal medications, long conversation about risk factor modification with pt and . Pt feels her obesity is due to water retention, which no one seems to able to improve. She continues non-compliant with caloric, fluid and sodium restrictions. Qualifiers: Chest pain type: other chest pain Qualified Code(s): R07.89 - Other chest pain; R07.8 - Other chest pain (2) CKD (chronic kidney disease) Current Visit: No Status: Acute Acute on chronic kidney disease, not a candidate for elective heart cath, will follow, pending nephrology evaluation Qualifiers: Chronic kidney disease stage: stage 3 (moderate) Qualified Code(s): N18.3 - Chronic kidney disease, stage 3 (moderate) (3) Non compliance with medical treatment Current Visit: No Status: Chronic Pt reports recent deaths in her family have prevented her from keeping follow up appointments, recommend she reschedule and follow up closely as outpatient. (4) Diabetes Current Visit: No Status: Chronic Not well controlled, discussed recommendations for close follow up, dietary restrictions. Qualifiers: Diabetes mellitus type: type 2 Diabetes mellitus complication status: with circulatory complication Diabetes mellitus complication detail: with other circulatory complications Diabetes mellitus senior living insulin use: with intermediate teacher use Qualified Code(s): E11.59 - Type 2 diabetes mellitus with other circulatory complications; Z79.4 - intermediate teacher (current) use of insulin; Z79.4 - intermediate teacher (current) use of insulin; Z79.4 - retirement (current) use of insulin; Z79.4 - retirement (current) use of insulin (5) Hypertension Current Visit: No Status: Chronic Adequate control on current medications Qualifiers: Hypertension type: essential hypertension Qualified Code(s): I10 - Essential (primary) hypertension Discussion w patient/family: The assessment and plan as outlined above was discussed with the patient and/or family members who expressed understanding and agreement. All questions were answered. Thank you for involving us in the care of your patient. Please call with any questions. History of Present Illness Consult date: 11/10/16 Requesting physician: Tara Andre Consult reason: chest pain Chief complaint: Chest pain History of present illness: Ms. Mars is a 61 year old female who presents with complaint of epigastric chest pain, which awoke her from sleep, appoximately 130 am. Pain was severe, 8 /10, radiated from mid epigastrium to left breast, then into left shoulder associated with mild diaphoresis, lasted approximately five minutes, resolved with one sl ntg. She went back to bed, was able to go back to sleep, but awoke with similar pain at 0230. She took another sl ntg with some improvement, pain decreased from 8 to 4, but did not relieve completely. She called the squad and was transferred to the ER. In route she recieved a third ntg with relief of her chest pain. She continues to experience a sharp pain in the medial lower quadrant of her left breast, which worsens with deep inspiration. and with cough. She feels the pain is lessening, but cannot quantify where or why. She reports this pain has occurred on and off over approximately four years. She takes sl ntg several times a month for this discomfort. She has had three previous attempts at stress imaging, reports she has had adverse reactions including hypotension, provocation of anxiety attacks and syncope. Left heart catheterization has been proposed, which she has declined due to rational fear of worsening chronic kidney disease. She is currently pain free at rest, but can provoke chest pain with deep inspiration. Past Med Surg Social Fam HX - Past Medical History Medical history: arthritis, CHF, COPD, DVT, diabetes, GERD, hyperlipidemia, hypertension, migraine, osteoporosis, renal disease, thyroid disease, other Psychiatric history: anxiety, depression - Past Surgical History Surgical History: appendectomy, hysterectomy, orthopedic, other, other, IVC filter - Social History Smoking Status: Former smoker Smokeless Tobacco Status: No Alcohol use: none Drug use: none - Family History Mother Living Status: Hx Family Cardiac Disorders: Yes Hx Family Cancer: Yes Hx Family Endocrine Disorder: Yes (DIABETES MELLITUS.) Medications and Allergies Cyclobenzaprine [Flexeril] 10 mg PO TID 09/12/14 [History] Docusate [Colace] 100 mg PO TID 09/12/14 [History] Doxepin [Sinequan] 50 mg PO HS 09/12/14 [History] Gabapentin [Neurontin] 300 mg PO TID 09/12/14 [History] Insulin ASPART [NovoLOG] 34 unit SQ QID 09/12/14 [History] Insulin Glargine,Hum.rec.anlog [Lantus Solostar] 75 unit SQ BID 09/12/14 [ History] Meclizine [Antivert] 25 mg PO TID 09/12/14 [History] Allopurinol [Zyloprim 100 MG] 100 mg PO DAILY 03/22/15 [History] DiphenhydraMINE [Benadryl] 25 mg PO TID 03/22/15 [History] Exenatide Microspheres [Bydureon Pen] 2 mg SQ MO 03/22/15 [History] Lidocaine Patch [Lidoderm 5% patch] 1 - 3 patch TP DAILY 03/22/15 [History] Nitroglycerin [Nitrostat] 0.4 mg SL Q5M PRN 03/22/15 [History] Promethazine [Phenergan] 25 mg PO TID 03/22/15 [History] clonazePAM [Klonopin] 1 mg PO HS 03/22/15 [History] Isosorbide MONOnitrate (24 HR) [Imdur] 30 mg PO QPM 03/23/15 [History] Metoprolol XL (24 HR) Succ [Toprol Xl] 25 mg PO DAILY 07/31/15 [History] Warfarin [Coumadin] 4 mg PO Q48H 07/31/15 [History] Warfarin [Coumadin] 5 mg PO Q48H 07/31/15 [History] Furosemide [Lasix] 20 mg PO 1800,2330 03/02/16 [History] Furosemide [Lasix] 40 mg PO QAM 03/02/16 [History] Albuterol Neb [AccuNeb] 1.25 mg IH QID PRN 05/06/16 [History] Ammonium Lactate [Lac-Hydrin Five] 1 appl TP TID 05/06/16 [History] Levothyroxine [Synthroid] 250 mcg PO QAM 05/06/16 [History] Nystatin POWDER [Nystop] 1 appl TP QID 05/06/16 [History] Petrolatum,White [Aloe [place]] 1 appl TP BID 05/06/16 [History] Rosuvastatin [Crestor] 20 mg PO HS 05/06/16 [History] Acetaminophen [Tylenol] 650 mg PO TID 11/10/16 [History] Doxycycline 100 mg PO BID 11/10/16 [History] Omeprazole [PriLOSEC] 40 mg PO DAILY 11/10/16 [History] 3 Allergy/AdvReac Type Severity Reaction Status Date / Time aspirin Allergy Hives Verified 05/16/16 01:37 cephalexin [From Keflex] Allergy Difficulty Verified 05/16/16 01:37 Breathing codeine Allergy Hypertensio Verified 05/16/16 01:37 n Cortisone Allergy See Verified 05/16/16 01:37 Comments hydrocortisone Allergy Hypertensio Verified 05/16/16 01:37 n ibuprofen Allergy Hives Verified 05/16/16 01:37 Iodinated Contrast- Oral and Allergy See Verified 05/16/16 01:37 IV Dye Comments [Iodinated Contrast Media - IV Dye] lidocaine [From Xylocaine] Allergy See Verified 05/16/16 01:37 Comments loratadine [From Claritin] Allergy Hives Verified 05/16/16 01:37 methylprednisolone Allergy Hypertensio Verified 05/16/16 01:37 [From Solu-Medrol] n Penicillins Allergy See Verified 05/16/16 01:37 Comments prednisone Allergy Hypertensio Verified 05/16/16 01:37 n Procaine [From Novocain] Allergy See Verified 05/16/16 01:37 Comments propoxyphene [From Darvon] Allergy See Verified 05/16/16 01:37 Comments pseudoephedrine Allergy Hives Verified 05/16/16 01:37 [From Sudafed] ropinirole [From Requip] Allergy See Verified 05/16/16 01:37 Comments tramadol AdvReac See Verified 05/20/16 15:19 Comments All Systems Review: A 10-system review of systems was performed and is negative for pertinent findings except as documented above in the HPI. - Constitutional Constitutional: anorexia, malaise, night sweats, snoring, stops breathing during sleep, other (unable to tolerated CPAP but does use O2 per nasal cannula. ) - EENT Eyes: blurred vision Nose, mouth and throat: dysphagia ( ), mouth pain, sore throat, throat swelling - Cardiovascular Cardiovascular: chest pain at rest, chest pain with exertion, claudication, diaphoresis, dyspnea on exertion, palpitations, paroxysmal nocturnal dyspnea - Respiratory Respiratory: dyspnea, other (Shortness of breath with exertion.) - Gastrointestinal Gastrointestinal: abdominal pain, coffee ground emesis, dysphagia, nausea - Genitourinary Genitourinary: dysuria, hematuria - Musculoskeletal Musculoskeletal: back pain, muscle weakness, myalgias - Integumentary Integumentary: erythema - Neurological Neurological: dizziness, syncope - Psychiatric Psychiatric: anxiety, depression, hallucinations, panic attacks Physical Examination Vital Signs, Last 4 Hours Temp Pulse Resp BP Pulse Ox 11/10/16 15:59 97.9 F 79 16 184/81 99 General: Conversant, No Apparent Distress HEENT: Atraumatic, Normocephaly, Mucus Membranes Moist Neck: No JVD, Normal carotid pulses Cardiac: Reg Rate and Rhythm, Normal S1 and S2, Other (S4) Lungs: Normal Breath Sounds, No Wheeze, Rales, Rhonchi, Other (Breath sounds are decreased) Neuro: Alert and responsive Abdomen: Soft, Other (massivley obese) Skin: Other (chronic venous stasis changes both legs. ) Musculoskeletal: Other (chest wall very tender in medial lower quadrant of left breast, palpation reproduces admisson chest pain. ) Extremities: Other (bilataral one plus pretibial edema. ) Results 11/10/16 03:50 11/10/16 03:50 Lab Results 11/10/16 11/10/16 10:59 11:42 INR 1.8 APTT 29.8 Troponin I 0.02 - EKG Interpretation EKG results cardiology: personally reviewed Consult Discharge Plan - Plan Referrals: Mauro Dockery MD [Primary Care Provider] -
[2016-11-10] MEDS ORDERED: Warfarin perPT PO PRN (18:00)
[2016-11-10] MEDS ORDERED: *HR* Warfarin 3 MG TABLET PO ONE (18:00)
[2016-11-10] MEDS ORDERED: Isosorbide MONOnitrate (24 HR) 30 MG TAB.ER.24H PO SCH (18:00)
--- NOTE | 2016-11-10 19:30 | Electrocardiograph Report ---
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
[2016-11-10] MEDS: Insulin DETEMIR 100 UNIT/ML X5UNITS SQ SCH (20:46)
[2016-11-10] MEDS ORDERED: clonazePAM 1 MG TABLET PO SCH (21:00)
[2016-11-10] MEDS ORDERED: Insulin LISPRO 300 UNITS/3 ML VIAL SQ SCH (21:00)
[2016-11-11 04:01] LABS: Mean Corpuscular Volume 98.1 fL (83.0-100.0); Mean Platelet Volume 10.3 fL (9.4-12.4)
[2016-11-11 04:02] LABS: Basophils % 0.5 %; Eosinophils # 0.2 K/mcL (0.0-0.6); Eosinophils % 3.7 %; Hematocrit 31.4 % (35.3-44.9); Hemoglobin 9.2 g/dL (11.5-15.4); Immature Granulocytes % 0.3 % (0-4); Lymphocytes # 1.5 K/mcL (0.6-4.6); Lymphocytes % 25.7 %; Mean Corpuscular HGB Conc 29.3 g/dL (31.6-35.5); Mean Corpuscular Hemoglobin 28.8 pg (28.0-33.3); Monocytes # 0.5 K/mcL (0.0-1.3); Monocytes % 7.9 %; Neutrophils # 3.7 K/mcL (1.6-8.9); Platelet Count 223 K/mcL (140-400); Red Cell Distribution Width 17.1 % (11.5-14.5); Segmented Neutrophils % 61.9 %
[2016-11-11 04:04] LABS: INR 1.7; Prothrombin Time 18.8 Seconds (9.4-12.1)
[2016-11-11 04:16] LABS: BUN/Creatinine Ratio 18 (6-26); Blood Urea Nitrogen 41 mg/dL (7-20); Calcium 8.7 mg/dL (8.6-10.8); Carbon Dioxide 26 mEq/L (19-29); Chloride 109 mEq/L (98-109); Chol/HDL Ratio 7.1 (0-4.9); Cholesterol 300 mg/dL (< 200); Glucose 106 mg/dL (70-99); HDL Cholesterol 42 mg/dL (40-59); Osmolality,Calculated 305 (280-300); Potassium 4.7 mEq/L (3.5-4.5); Sodium 142 mEq/L (136-145); Triglycerides 423 mg/dL (< 150); eGFR For African Americans 26 (> 60); eGFR For Non-African Americans 22 (> 60)
[2016-11-11 04:19] LABS: Platelet Estimate Slight Decrease (Normal)
[2016-11-11 04:21] LABS: Anisocytosis 1+ (Not Present); Hypochromasia Present (Not Present); Polychromasia 1+ (Not Present)
[2016-11-11] MEDS: Insulin LISPRO 300 UNITS/3 ML VIAL SQ SCH ×4 (09:29→13:40)
[2016-11-11] MEDS: Doxycycline 100 MG CAPSULE PO SCH (09:30)
[2016-11-11] MEDS: Gabapentin 300 MG CAPSULE PO SCH (09:30)
[2016-11-11] MEDS: Metoprolol XL (24 HR) Succ 25 MG TAB.ER.24H PO SCH (09:30)
[2016-11-11] MEDS: Insulin DETEMIR 100 UNIT/ML X5UNITS SQ SCH (09:31)
--- NOTE | 2016-11-11 09:52 | Cardiology Progress Note ---
Date of Encounter: 11/11/16 Time of Encounter: 09:15 Assessment and Plan (1) Chest pain Current Visit: Yes Status: Acute Atypical chest pain. Pain is reproducible on exam and pain occurs at rest. Reports pain in her chest since . Pain increased over past week. Reports three deaths in her family over the past month. Statesthat she feels she is having panic attacks. Morphine and NTG SL helps pain. Troponin negative x3. EKg with no concerning changes. TTE showed preserved EF and no WMA. Declines stress test. Reports discussing LHC in the past and she declined d/t concern of injuring her kidneys. Cardiac risk factors include HTN, DM, and family history. Patient prefers medical management and no indication for further testing. Again chest pain is atypical. Reports taking NTG on a daily basis at home. Can Recommend increasing imdur to see if she is able to reduce SL NTG use. No asa due to allergy. Continue statin and bb. Patient would like to continue to follow with PCP. Cardiology signing off. Qualifiers: Chest pain type: precordial pain Qualified Code(s): R07.2 - Precordial pain Discussion w patient/family: The assessment and plan as outlined above was discussed with the patient and/or family members who expressed understanding and agreement. All questions were answered. Thank you for involving us in the care of your patient. Please call with any questions. Subjective Principal diagnosis: Chest pain Interval history: Ms. Mars reports mid-epigastric pain overnight radiating like a band-like pressure around to her back. Pain relieved with morphine. She continues to decline stress test. Objective Vital Signs, Last 4 Hours Temp Pulse Resp BP Pulse Ox 11/11/16 07:04 96.6 F L 82 18 182/69 98 General: Conversant, No Apparent Distress, Other (Morbidly obese female.) HEENT: Atraumatic, Normocephaly, Mucus Membranes Moist Neck: No JVD, Normal carotid pulses Cardiac: Reg Rate and Rhythm, Normal S1 and S2, No Murmur Lungs: Normal Breath Sounds, No Wheeze, Rales, Rhonchi Neuro: Alert and responsive, No focal deficits noted Abdomen: Soft, Non-Tender Skin: No rashes noted on visualized skin Musculoskeletal: No Chest Wall Tenderness Extremities: No Clubbing, No Cyanosis, No Edema, Normal Pulses Results 11/11/16 03:29 11/11/16 03:29 Lab Results 11/10/16 11/10/16 11/10/16 10:59 11:42 17:32 WBC Hgb Hct Plt Count INR 1.8 APTT 29.8 Sodium Potassium Chloride Carbon Dioxide BUN Creatinine Glucose Calcium Troponin I 0.02 0.02 11/11/16 11/11/16 11/11/16 03:29 03:29 03:29 WBC 6.0 Hgb 9.2 L Hct 31.4 L Plt Count 223 INR 1.7 APTT Sodium 142 Potassium 4.7 H Chloride 109 Carbon Dioxide 26 BUN 41 H Creatinine 2.29 H Glucose 106 H Calcium 8.7 Troponin I - Imaging and Cardiology Echo: report reviewed - EKG Interpretation EKG results cardiology: personally reviewed Consult Discharge Plan - Plan Referrals: Mauro Dockery MD [Primary Care Provider] -
[2016-11-11] MEDS: Ammonium Lactate 30 APPL/225 GM BOTTLE TP SCH (10:02)
[2016-11-11] MEDS: Nystatin POWDER 30 GM BOTTLE TP SCH (10:02)
[2016-11-11 11:15] VITALS: BP 140/59
--- NOTE | 2016-11-11 12:39 | Discharge Summary ---
Date of Encounter: 11/11/16 Time of Encounter: 09:10 - Discharge Diagnosis (1) Chest pain Priority: Primary Status: Acute Comments: Patient has atypical chest pain intermittently since the , with multiple risk factors for CAD. Chest pain increased over the last week. Patient reports multiple deaths in her family over the last month and reports that she feels as if she is having panic attacks. She reports prior attempts at stress test in the past and she did not tolerate them. She reports syncopal episode during last stress test. Patient was on telemetry. Pain was treated with nitroglycerin and Tylenol as needed. Echocardiogram was obtained. Cardiology was consulted and signed off. Plan was negative 3. EKG normal sinus without ST changes. Echo showed preserved EF and no W MAA. Patient has declined the stress test per cardiology. To me she says a cardiology is not going to do the stress test because she cannot tolerate it. She says that she is concerned over worsening injury of her kidneys. Her cardiac risk factors include hypertension, diabetes , family history, and morbid obesity with BMI of 61. Patient cardiology agreed to medical management and no further testing at this time. Imdur will be increased. She is unable to take aspirin due to allergy. She will continue her statin and beta rudy. Patient states that she would like to follow-up with her primary care. Cardiology has signed off. Qualifiers: Chest pain type: other chest pain Qualified Code(s): R07.89 - Other chest pain; R07.8 - Other chest pain (2) Morbid obesity with BMI of 60.0-69.9, adult Priority: Secondary Status: Chronic Comments: Chronic. Lifestyle changes. Patient reports that her obesity is due to edema but no one has been able to control. Patient states that she is seeing a raw silk grader and has to lose over 100 pounds in order to have her knee replaced. (3) CKD (chronic kidney disease) Priority: Secondary Status: Chronic Comments: Renal function is improved since yesterday. Serum creatinine is 2.29 GFR 22. Patient follows with primary care. Continue to avoid nephrotoxins. Qualifiers: Chronic kidney disease stage: stage 3 (moderate) Qualified Code(s): N18.3 - Chronic kidney disease, stage 3 (moderate) (4) HTN (hypertension) Priority: Secondary Status: Chronic Comments: Chronic. Lifestyle changes. Qualifiers: Hypertension type: essential hypertension Qualified Code(s): I10 - Essential (primary) hypertension (5) DVT prophylaxis Priority: Secondary Status: Acute Comments: Patient is on Coumadin. Continue at home. (6) Type 2 diabetes mellitus Priority: Secondary Status: Chronic Comments: Hemoglobin A1c 6.8. Continue medications at home, Accu-Cheks before meals at bedtime, diabetic diet, lifestyle modifications and exercise as tolerated. Qualifiers: Diabetes mellitus complication status: with neurologic complications Diabetes mellitus complication detail: with polyneuropathy Diabetes mellitus termite helper insulin use: with termite helper use Qualified Code(s): E11.42 - Type 2 diabetes mellitus with diabetic polyneuropathy; Z79.4 - half-way (current) use of insulin (7) Hyperkalemia Priority: Secondary Status: Acute Comments: Improved. Potassium 4.7. - Discharge Medications Prescriptions: Isosorbide MONOnitrate (24 HR) [Imdur] 60 mg PO QPM #30 tab.er.24h Home Medications: Cyclobenzaprine [Flexeril] 10 mg PO TID 09/12/14 [History] Docusate [Colace] 100 mg PO TID 09/12/14 [History] Doxepin [Sinequan] 50 mg PO HS 09/12/14 [History] Gabapentin [Neurontin] 300 mg PO TID 09/12/14 [History] Insulin ASPART [NovoLOG] 34 unit SQ QID 09/12/14 [History] Insulin Glargine,Hum.rec.anlog [Lantus Solostar] 75 unit SQ BID 09/12/14 [ History] Meclizine [Antivert] 25 mg PO TID 09/12/14 [History] Allopurinol [Zyloprim 100 MG] 100 mg PO DAILY 03/22/15 [History] DiphenhydraMINE [Benadryl] 25 mg PO TID 03/22/15 [History] Exenatide Microspheres [Bydureon Pen] 2 mg SQ MO 03/22/15 [History] Lidocaine Patch [Lidoderm 5% patch] 1 - 3 patch TP DAILY 03/22/15 [History] Nitroglycerin [Nitrostat] 0.4 mg SL Q5M PRN 03/22/15 [History] Promethazine [Phenergan] 25 mg PO TID 03/22/15 [History] clonazePAM [Klonopin] 1 mg PO HS 03/22/15 [History] Metoprolol XL (24 HR) Succ [Toprol Xl] 25 mg PO DAILY 07/31/15 [History] Warfarin [Coumadin] 4 mg PO Q48H 07/31/15 [History] Warfarin [Coumadin] 5 mg PO Q48H 07/31/15 [History] Furosemide [Lasix] 20 mg PO 1800,2330 03/02/16 [History] Furosemide [Lasix] 40 mg PO QAM 03/02/16 [History] Albuterol Neb [AccuNeb] 1.25 mg IH QID PRN 05/06/16 [History] Ammonium Lactate [Lac-Hydrin Five] 1 appl TP TID 05/06/16 [History] Levothyroxine [Synthroid] 250 mcg PO QAM 05/06/16 [History] Nystatin POWDER [Nystop] 1 appl TP QID 05/06/16 [History] Petrolatum,White [Aloe [place]] 1 appl TP BID 05/06/16 [History] Rosuvastatin [Crestor] 20 mg PO HS 05/06/16 [History] Acetaminophen [Tylenol] 650 mg PO TID 11/10/16 [History] Doxycycline 100 mg PO BID 11/10/16 [History] Omeprazole [PriLOSEC] 40 mg PO DAILY 11/10/16 [History] Isosorbide MONOnitrate (24 HR) [Imdur] 60 mg PO QPM #30 tab.er.24h 11/11/16 [Rx] Potassium Chloride [Klor-Con 10] 10 meq PO BID 11/11/16 [History] Allergies/Adverse Reactions: 3 Allergy/AdvReac Type Severity Reaction Status Date / Time aspirin Allergy Hives Verified 05/16/16 01:37 cephalexin [From Keflex] Allergy Difficulty Verified 05/16/16 01:37 Breathing codeine Allergy Hypertensio Verified 05/16/16 01:37 n Cortisone Allergy See Verified 05/16/16 01:37 Comments hydrocortisone Allergy Hypertensio Verified 05/16/16 01:37 n ibuprofen Allergy Hives Verified 05/16/16 01:37 Iodinated Contrast- Oral and Allergy See Verified 05/16/16 01:37 IV Dye Comments [Iodinated Contrast Media - IV Dye] lidocaine [From Xylocaine] Allergy See Verified 05/16/16 01:37 Comments loratadine [From Claritin] Allergy Hives Verified 05/16/16 01:37 methylprednisolone Allergy Hypertensio Verified 05/16/16 01:37 [From Solu-Medrol] n Penicillins Allergy See Verified 05/16/16 01:37 Comments prednisone Allergy Hypertensio Verified 05/16/16 01:37 n Procaine [From Novocain] Allergy See Verified 05/16/16 01:37 Comments propoxyphene [From Darvon] Allergy See Verified 05/16/16 01:37 Comments pseudoephedrine Allergy Hives Verified 05/16/16 01:37 [From Sudafed] ropinirole [From Requip] Allergy See Verified 05/16/16 01:37 Comments tramadol AdvReac See Verified 05/20/16 15:19 Comments Procedures/tests Complete & Pending: Procedures Performed prior 72 hours Category Date Time Status EV echocardiogram w enhance Routine Y 11/10/16 11:25 Completed Date of admission: 11/10/16 04:43 Primary care physician: Mauro Dockery MD Consults: 11/10/16 11:14 Consult to Physician [CONS] Routine Consulting Provider: Roni Thompson Reason for Consult: Chest pain. Patient does not tolerate stress test. Call Completed: No Discharging clinician: Tara Andre Anticipated date of discharge: 11/11/16 - Patient Status Disposition: Home, Self-Care Condition: Good Functional capacity at discharge: independent ambulation Overall status at discharge: patient is progressing back to baseline - Discharge Instructions Follow Up With: Mauro Dockery MD [Primary Care Provider] - Additional Instructions: Follow up with Dr. Dockery in the next week or two for a follow up visit. Return to the ER as needed for any other problems or concerns, or if your symptoms return or worsen. Resume your normal medications and activites as tolerated. - Diet and Activity Activity: increase activity as tolerated Diet: diabetic diet, low fat, low cholesterol Hospital course: Ms. Mars is a 61 year old female with past medical history of hypertension, diabetes, morbid obesity, RUPERT presented to the hospital due to severe 8/10 substernal sharp chest pain with radiation to left arm. She reported shortness of breath no nausea no vomiting. No aggravating or relieving factors. Chest x- ray and EKG were normal in the emergency department troponins were negative. Patient is a former smoker. Patient had an echocardiogram that was technically limited study due to body habitus. Definity was used. There is normal LV systolic function with an EF of 55% mild concentric LVF, mild diastolic impairment and no significant valvular disease. Patient was seen by cardiology. Patient has refused stress and LHC due to worsening renal function and adverse reactions from prior attempts. Patient has decided to maximize medical management and try to alleviate risk factors. Imdur will be increased to 60 mg daily. Patient denies chest pain currently. Her lungs are clear and diminished throughout. Other than the Imdur, there have been no medication changes made. Patient has mild hyperkalemia on arrival, 4.7 now. Renal function has improved from yesterday, serum creatinine is 2.29 GFR is 22. Patient's hemoglobin A1c is 6.8. Cholesterol is 300, triglycerides are 423. Patient reports that she is seeing a raw silk grader because she needs to lose 100 pounds so that she can have her knee replacement surgery done. Patient states obesity is due to edema that no one has been able to fix. Patient reports recent history of increased stressors at home, multiple deaths in her family which have prevented her from keeping any follow-up appointments and taking medications as directed. Both courier driver and I have encouraged patient to reschedule and keep appointments for continued medical care and treatment. Patient's vital signs and stable and within normal limits. Patient is ready for discharge. - Time Spent with Patient Total time spent providing and/or coordinating discharge services: Less than 30 minutes - Constitutional Vitals: Temp Pulse Resp BP Pulse Ox 97.7 F 79 16 140/59 97 11/11/16 11:14 11/11/16 11:14 11/11/16 11:14 11/11/16 11:14 11/11/16 11:14 General appearance: Present: A&O X 3, morbidly obese, no acute distress, answers questions appropriately - Head Head exam: Present: atraumatic, normal inspection, normocephalic - Eye Eye exam: Present: normal appearance, conjuntiva pink, sclera anicteric - Neck Neck exam general surgery: Present: supple, trachea midline. Absent: lymphadenopathy - Respiratory Respiratory exam: Present: decreased breath sounds, CTAB. Absent: accessory muscle use, chest wall tenderness, rales, rhonchi, wheezes - Cardiovascular Cardiovascular exam: Present: RRR, +S1, +S2. Absent: diastolic murmur, gallop, rubs, systolic murmur - GI/Abdominal GI/Abdominal exam: Present: distended, normal bowel sounds, soft. Absent: tenderness - Extremities Exam Extremities exam: Present: pedal edema, warm, radial pulses palpable and symmetrical. Absent: calf tenderness, cyanotic - Neurological Exam Neurological exam: Present: alert, oriented X3, no focal deficits. Absent: facial droop, speech deficit - Skin Skin exam: Present: dry, intact, normal color, warm. Absent: rash
[2016-11-11] MEDS ORDERED: Isosorbide MONOnitrate (24 HR) 30 MG TAB.ER.24H PO SCH (18:00)
== END 2016-11-11 14:22 | disposition home or self-care (01) ==
LOC: 3BNU 03:37 → EMEROO 03:37 → 3BNU 05:11
PROVIDERS: ADMIT Internal Medicine; ATTEND Registered Nurse

== ENCOUNTER 2016-11-22 14:30 | Inpatient (IN) ==
--- NOTE | 2016-11-22 17:23 | Emergency Department Note ---
Disposition Clinical Impression: Monocular visual disturbance, Vision loss of right eye Disposition: Admitted As Inpatient Condition: Good Referrals: Mauro Dockery MD [Primary Care Provider] - Forms: ED Satisfaction Letter Time of Disposition: 21:20 Eye Problem HPI - General Chief complaint: ED Eye Problems Stated complaint: vision problems Time Seen by Provider: 11/22/16 17:15 Source: patient Mode of arrival: ambulatory Limitations: no limitations Nursing Notes Reviewed: Yes Vital Signs Reviewed: Yes - History of Present Illness HPI Narrative: Patient is a 61-year-old female with past medical history of diabetes, hypertension, obesity, previous episode of increased intracranial pressure in her 20s which required spinal taps for therapeutic decrease of ICP. She presents today as a referral from her primary care physician due to monocular vision loss. Patient says that for the past 2 days, she has had gradual vision loss of the right eye. It started as a pulsing white light in the right eye, then her vision gradually went totally black. Last night was when her vision totally went black while watching television. She denies any change of vision in her left eye, denies any blurriness. She denies seeing a curtain of blackness in her right eye. Denies any pain in the right eye. Denies any other numbness, tingling, weakness. Her primary care physician sent her over due to concern for stroke. She denies any previous history of stroke. Denies any current chest pain, shortness breath, nausea, vomiting, fevers, diarrhea, abdominal pain. - Related Data Home Medications Medication Instructions Recorded Confirmed Cyclobenzaprine [Flexeril] 10 mg PO TID 09/12/14 11/11/16 Docusate [Colace] 100 mg PO TID 09/12/14 11/11/16 Doxepin [Sinequan] 50 mg PO HS 09/12/14 11/11/16 Gabapentin [Neurontin] 300 mg PO TID 09/12/14 11/11/16 Insulin ASPART [NovoLOG] 34 unit SQ QID 09/12/14 11/11/16 Insulin Glargine,Hum.rec.anlog 75 unit SQ BID 09/12/14 11/11/16 [Lantus Solostar] Meclizine [Antivert] 25 mg PO TID 09/12/14 11/11/16 Allopurinol [Zyloprim 100 MG] 100 mg PO DAILY 03/22/15 11/11/16 DiphenhydraMINE [Benadryl] 25 mg PO TID 03/22/15 11/11/16 Exenatide Microspheres [Bydureon 2 mg SQ MO 03/22/15 11/11/16 Pen] Lidocaine Patch [Lidoderm 5% patch] 1 - 3 patch TP DAILY 03/22/15 11/11/16 Nitroglycerin [Nitrostat] 0.4 mg SL Q5M PRN 03/22/15 11/11/16 Promethazine [Phenergan] 25 mg PO TID 03/22/15 11/11/16 clonazePAM [Klonopin] 1 mg PO HS 03/22/15 11/11/16 Metoprolol XL (24 HR) Succ [Toprol 25 mg PO DAILY 07/31/15 11/11/16 Xl] Warfarin [Coumadin] 4 mg PO Q48H 07/31/15 11/11/16 Warfarin [Coumadin] 5 mg PO Q48H 07/31/15 11/11/16 Furosemide [Lasix] 20 mg PO 1800,2330 03/02/16 11/11/16 Furosemide [Lasix] 40 mg PO QAM 03/02/16 11/11/16 Albuterol Neb [AccuNeb] 1.25 mg IH QID PRN 05/06/16 11/11/16 Ammonium Lactate [Lac-Hydrin Five] 1 appl TP TID 05/06/16 11/11/16 Levothyroxine [Synthroid] 250 mcg PO QAM 05/06/16 11/11/16 Nystatin POWDER [Nystop] 1 appl TP QID 05/06/16 11/11/16 Petrolatum,White [Aloe [place]] 1 appl TP BID 05/06/16 11/11/16 Rosuvastatin [Crestor] 20 mg PO HS 05/06/16 11/11/16 Acetaminophen [Tylenol] 650 mg PO TID 11/10/16 11/11/16 Doxycycline 100 mg PO BID 11/10/16 11/11/16 Omeprazole [PriLOSEC] 40 mg PO DAILY 11/10/16 11/11/16 Potassium Chloride [Klor-Con 10] 10 meq PO BID 11/11/16 11/11/16 Previous Rx's Medication Instructions Recorded Isosorbide MONOnitrate (24 HR) 60 mg PO QPM #30 tab.er.24h 11/11/16 [Imdur] Allergies Allergy/AdvReac Type Severity Reaction Status Date / Time aspirin Allergy Hives Verified 05/16/16 01:37 cephalexin [From Keflex] Allergy Difficulty Verified 05/16/16 01:37 Breathing codeine Allergy Hypertensio Verified 05/16/16 01:37 n Cortisone Allergy See Verified 05/16/16 01:37 Comments hydrocortisone Allergy Hypertensio Verified 05/16/16 01:37 n ibuprofen Allergy Hives Verified 05/16/16 01:37 Iodinated Contrast- Oral and Allergy See Verified 05/16/16 01:37 IV Dye Comments [Iodinated Contrast Media - IV Dye] lidocaine [From Xylocaine] Allergy See Verified 05/16/16 01:37 Comments loratadine [From Claritin] Allergy Hives Verified 05/16/16 01:37 methylprednisolone Allergy Hypertensio Verified 05/16/16 01:37 [From Solu-Medrol] n Penicillins Allergy See Verified 05/16/16 01:37 Comments prednisone Allergy Hypertensio Verified 05/16/16 01:37 n Procaine [From Novocain] Allergy See Verified 05/16/16 01:37 Comments propoxyphene [From Darvon] Allergy See Verified 05/16/16 01:37 Comments pseudoephedrine Allergy Hives Verified 05/16/16 01:37 [From Sudafed] ropinirole [From Requip] Allergy See Verified 05/16/16 01:37 Comments tramadol AdvReac See Verified 05/20/16 15:19 Comments All systems ED: reviewed and negative except as stated. Constitutional: Denies: fever Eyes: Reports: vision change. Denies: eye pain Cardiovascular: Denies: chest pain Respiratory: Denies: cough, dyspnea Gastrointestinal: Denies: abdominal pain, nausea, vomiting, diarrhea, constipation Neurological: Denies: headache, weakness, numbness, paresthesias Past Medical History - Past Medical History Attestation: Yes The following information was validated with the patient. 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 - Social History Smoking Status: Former smoker Smokeless Tobacco Status: No Alcohol use: Reports: none Drug use: Reports: none Physical Exam - General Limitations: no limitations General appearance: alert, in no apparent distress - Head Head exam: atraumatic, normocephalic, normal inspection - Eye Eye exam: Present: normal appearance, PERRL, EOMI - Expanded Eye Exam Eyelids: bilateral: normal inspection Pupils: Bilateral: regular, round, reactive, size (4mm) Sclera/Conjunctival: bilateral: normal inspection - ENT ENT exam: normal exam, normal oropharynx, mucous membranes moist - Neck Neck exam: Present: normal inspection, full ROM, trachea midline - Chest Chest inspection: Present: normal inspection, symmetric chest wall rise - Respiratory Respiratory exam: Present: normal lung sounds bilaterally - Cardiovascular Cardiovascular exam: Present: regular rate, normal rhythm, normal heart sounds - Abdominal Exam Abdominal exam: Present: soft, Non-Tender. Absent: tenderness, distention, guarding, rebound, rigidity - Extremities Exam Extremities exam: Present: normal inspection, full ROM. Absent: tenderness, pedal edema - Neurological Exam Neurological exam: Present: alert, oriented X3, CN II-XII intact. Absent: motor sensory deficit - Psychiatric Psychiatric exam: Present: normal affect, normal mood - Skin Skin exam: Present: warm, dry, intact, normal color Course Course Narrative: Blood pressure elevated on initial presentation. We will recheck to make sure that is coming down during stay. Otherwise, the rest of vitals within normal limits. Physical exam showed complete loss of vision of the right high when covering the left eye. There is no change in vision of the left eye. Normal inspection of bilateral eyes. Both pupils are equal, round, reactive. Specifically, the right pupil is reactive when light is shined on the pupil. Funduscopic exam shows dark discoloration near the area of the macula. I am unable to see any other abnormality is due to pupil size restricting my view. The rest of the physical exam shows no focal neurologic deficits. Heart regular rate and rhythm, lungs clear to auscultation. We will obtain CT of the head to assess for any stroke, especially with history of increased ICP. Patient needs to be evaluated by ophthalmology as well. This will likely be admitted for further stroke workup and consult to ophthalmology. 21:08 labs show chronic anemia, creatinine that is near baseline for the patient. CT the head was negative for any acute intracranial abnormality. I discussed admission with the patient for further stroke workup including carotid Dopplers and a consultation to Dr. Dobbins, foreign clerk. Head CT 11/22/16 17:52 IMPRESSION: No acute intracranial abnormality. D/ / Lowell Jett / Lowell Jett Interpreting Provider: Lowell Jett Vital Signs Temperature 97.7 F 11/22/16 14:32 Pulse Rate 57 11/22/16 14:32 Respiratory Rate 18 11/22/16 14:32 Blood Pressure 221/103 11/22/16 14:32 O2 Sat by Pulse Oximetry 99 11/22/16 14:32 Temperature 97.7 F 11/22/16 14:32 Pulse Rate 57 11/22/16 14:32 Respiratory Rate 18 11/22/16 14:32 Blood Pressure 221/103 11/22/16 14:32 O2 Sat by Pulse Oximetry 99 11/22/16 14:32 Oxygen Delivery Oxygen Delivery Room Air Eye - MDM Narrative Medical decision making narrative: labs show chronic anemia, creatinine that is near baseline for the patient. CT the head was negative for any acute intracranial abnormality. I discussed admission with the patient for further stroke workup for monocular vision loss including carotid Dopplers and a consultation to Dr. Dobbins, foreign clerk. - Medical Records Medical records reviewed: Yes I reviewed the patient's medical records. - Lab Data Lab results reviewed: Yes I reviewed the patient's lab results. Result diagrams: 11/22/16 17:57 11/22/16 17:57 Lab Results 11/22/16 11/22/16 11/22/16 Range/Units 17:57 17:57 17:57 WBC 5.4 (4.3-11.1) K/mcL RBC 3.38 L (3.82-4.97) M/mcL Hgb 9.8 L (11.5-15.4) g/dL Hct 32.8 L (35.3-44.9) % MCV 97.0 (83.0-100.0) fL MCH 29.0 (28.0-33.3) pg MCHC 29.9 L (31.6-35.5) g/dL RDW 16.7 H (11.5-14.5) % Plt Count 226 (140-400) K/mcL MPV 9.9 (9.4-12.4) fL Immature Gran % 0.2 (0-4) % Seg Neutrophils % 55.9 % Lymphocytes % 29.0 % Monocytes % 9.7 % Eosinophils % 4.6 % Basophils % 0.6 % Neutrophils # 3.0 (1.6-8.9) K/mcL Lymphocytes # 1.6 (0.6-4.6) K/mcL Monocytes # 0.5 (0.0-1.3) K/mcL Eosinophils # 0.3 (0.0-0.6) K/mcL Basophils # 0.0 (0.0-0.2) K/mcL PT 19.7 H (9.4-12.1) Seconds INR 1.8 APTT 34.8 (26.0-36.0) Seconds Sodium 141 (136-145) mEq/L Potassium 4.6 H (3.5-4.5) mEq/L Chloride 102 (98-109) mEq/L Carbon Dioxide 28 (19-29) mEq/L BUN 37 H (7-20) mg/dL Creatinine 2.27 H (0.57-1.11) mg/dL Est GFR ( Amer) 26 L (> 60) Est GFR (Non-Af Amer) 22 L (> 60) BUN/Creatinine Ratio 16 (6-26) Glucose 155 H (70-99) mg/dL Calculated Osmolality 304 H (280-300) Calcium 9.5 (8.6-10.8) mg/dL - Radiology Data Radiology results reviewed: Yes I reviewed the patient's radiology results. Head CT 11/22/16 17:52 IMPRESSION: No acute intracranial abnormality. D/ / Lowell Jett / Lowell Jett Interpreting Provider: Lowell Jett - EKG Data EKG attestation: Yes I reviewed and interpreted this EKG. EKG results narrative: 11/22/2016 at 17:56. Rate 87. OK 186. QRS 95. QTc 491. No acute ST elevation or depression. No acute changes from previous EKG on 11/10/2016. There is evidence of right bundle branch block with RSR prime in V1 and V2 that is unchanged from previous EKG. S.Tolu - Surya Situation: Demographics, MOA Background: Presenting Complaint, Relevant PMH, Meds, & Allergies Assessment: Vital Signs, Course and respsone to treatment, Exam Concerns, Patient/Family Expectation, Pertinant Lab Results, Outstanding Labs Recommendation: Barrier(s) to disposition, Recommendation based on pending studies, treatments, or consults S.B.Domo Report Given to: Dr Ciaran London Repor Time: 21:21 Attestation Statement - Attestation Attestation: I examined this patient and my medical decision-making was reviewed with the Resident Physician. I agree with the documented findings, disposition and treatment plan as described except to the extent set forth below. This is a 61- year-old female presents with painless loss of vision of her right eye. Plan to obtain CT scan of the brain, basic laboratory analyses. Plan to admit for ophthalmology consultation. Case discussed with on-call ophthalmology.
[2016-11-22 18:04] LABS: Basophils % 0.6 %; Eosinophils # 0.3 K/mcL (0.0-0.6); Eosinophils % 4.6 %; Hematocrit 32.8 % (35.3-44.9); Hemoglobin 9.8 g/dL (11.5-15.4); Immature Granulocytes % 0.2 % (0-4); Lymphocytes # 1.6 K/mcL (0.6-4.6); Mean Corpuscular HGB Conc 29.9 g/dL (31.6-35.5); Mean Platelet Volume 9.9 fL (9.4-12.4); Monocytes # 0.5 K/mcL (0.0-1.3); Monocytes % 9.7 %; Platelet Count 226 K/mcL (140-400); Red Blood Count 3.38 M/mcL (3.82-4.97); Red Cell Distribution Width 16.7 % (11.5-14.5); Segmented Neutrophils % 55.9 %
[2016-11-22 18:13] LABS: INR 1.8; Prothrombin Time 19.7 Seconds (9.4-12.1)
[2016-11-22 18:16] LABS: Activated Partial Thrombo Time 34.8 Seconds (26.0-36.0); Calcium 9.5 mg/dL (8.6-10.8); Potassium 4.6 mEq/L (3.5-4.5)
[2016-11-22] MEDS ORDERED: diazePAM 10 MG/2 ML SYRINGE IVP ONE (18:32)
[2016-11-22] MEDS ORDERED: diazePAM 5 MG TABLET PO ONE (19:05)
[2016-11-22] MEDS ORDERED: Insulin LISPRO 300 UNITS/3 ML VIAL SQ SCH (23:45)
[2016-11-22] MEDS ORDERED: Nitroglycerin 0.4 MG TAB.SUBL SL PRN (23:48)
[2016-11-22] MEDS ORDERED: Ondansetron 4 MG/2 ML VIAL IVP PRN (23:53)
[2016-11-22] MEDS ORDERED: Albuterol 2.5 MG/3 ML NEBULIZER IH PRN (23:53)
[2016-11-22] MEDS ORDERED: D5% in Water 1,000 ML IVC PRN (23:56)
[2016-11-22] MEDS ORDERED: *HR* Dextrose 50 % in Water (Syg) 50 ML SYRINGE IVP PRN (23:56)
[2016-11-22] MEDS ORDERED: Dextrose Gel 15 GM PO PRN ×2 (23:56)
[2016-11-23] MEDS ORDERED: Naloxone 0.4 MG/ML INJ IVP PRN (00:08)
[2016-11-23] MEDS ORDERED: methylPREDNISolone 125 MG/2 ML VIAL IVP ONE (00:13)
[2016-11-23] MEDS ORDERED: Aspirin 325 MG TABLET PO SCH (00:15)
--- NOTE | 2016-11-23 00:20 | Internal Med History&Physical ---
Date of Encounter: 11/23/16 Time of Encounter: 22:20 Assessment and Plan (1) Vision loss of right eye Current visit: Yes Status: Acute Cause is not clear. Differential that includes occipital stroke versus diabetic mononeuritis or temporal angitis. She did not complain of much headache but I will go ahead and order a stat ESR and CRP. Once those tests are drawn we can go ahead and start patient on IV steroids. ER has told us that Dr. Dobbins can be consulted in the morning as he does not come to the hospital at night therefore will advise morning hospitalist consult neurology and ophthalmology. She is already on Coumadin with INR 1.8. MRI of the brain echocardiogram and ultrasound of carotid ordered aspirin is started. (2) Malignant hypertension Current visit: Yes Status: Acute Blood pressure quite elevated especially systolic blood pressure above 240. This could be a reaction to acute stroke. In any case blisters started on IV hydralazine when necessary to bring blood pressure under 190 at least. (3) Subtherapeutic anticoagulation Current visit: Yes Status: Acute Daily PT/INR and Coumadin dosing per pharmacy target INR between 2 and 2.5 (4) CKD (chronic kidney disease) Current visit: No Status: Chronic Creatinine seems to stable follow renal function daily stage for CKD Qualifiers: Chronic kidney disease stage: stage 3 (moderate) Qualified Code(s): N18.3 - Chronic kidney disease, stage 3 (moderate) (5) History of DVT (deep vein thrombosis) Current visit: No Status: Chronic History of DVT patient is on Coumadin INR 1.8 (6) Hyperlipidemia Current visit: No Status: Chronic Check lipid profile she is already on Lipitor Qualifiers: Hyperlipidemia type: unspecified Qualified Code(s): E78.5 - Hyperlipidemia , unspecified (7) Hypothyroidism Current visit: No Status: Chronic Qualifiers: Hypothyroidism type: unspecified Qualified Code(s): E03.9 - Hypothyroidism , unspecified (8) RUPERT (obstructive sleep apnea) Current visit: Yes Status: Chronic Patient used 3 L oxygen at night but does not use CPAP as she could not tolerate it (9) Type 2 diabetes mellitus Current visit: Yes Status: Chronic Accu-Chek 4 times a day with sliding scale coverage daily Qualifiers: Diabetes mellitus complication status: with neurologic complications Diabetes mellitus complication detail: with polyneuropathy Diabetes mellitus custodial insulin use: with custodial use Qualified Code(s): E11.42 - Type 2 diabetes mellitus with diabetic polyneuropathy; 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 At this point seems euvolemic. Qualifiers: Congestive heart failure type: diastolic Congestive heart failure chronicity: chronic Qualified Code(s): I50.32 - Chronic diastolic (congestive ) heart failure (11) Morbid obesity with BMI of 60.0-69.9, adult Current visit: No Status: Chronic Counseling provided Internal Medicine - H&P: HPI Chief complaint: Acute onset Right eye blindness Admitted From: Home Plans for Post Hospital Care: Home History of present illness: Ms. Mars is a 61 year old female past medical history significant for diabetes hypertension dyslipidemia DVT CHF COPD CKD hypothyroidism and history of migraine. Patient is morbidly obese has been to the hospital several times during this area alone. She is known to be noncompliant with medical treatment. Patient has been experiencing visual changes in her right eye for last 2 days and today she became blind in her right eye. She denies any headache but does admit to become dizzy in the same timeframe as slightly wobbly when she ambulates no history of fall near syncope or syncope. She is on Coumadin for history of DVT and her INR is 1.8 today. No other complaints otherwise. No chest pain palpitation abdominal pain nausea vomiting diarrhea dysuria urgency frequency and hematuria and hematochezia hematemesis melena or any other symptoms reviewed. her blood pressure is noted to be elevated in the ER. Past Med Surg Social Fam HX - Past Medical History Medical history: arthritis, CHF, COPD, DVT, diabetes, GERD, hyperlipidemia, hypertension, migraine, osteoporosis, renal disease, thyroid disease, other Psychiatric history: anxiety, depression - Past Surgical History Surgical History: appendectomy, hysterectomy, orthopedic, other, other, IVC filter - Social History Smoking Status: Former smoker Smokeless Tobacco Status: No Alcohol use: none Drug use: none - Family History Mother Living Status: Hx Family Cardiac Disorders: Yes Hx Family Cancer: Yes Hx Family Endocrine Disorder: Yes (DIABETES MELLITUS.) Internal Medicine - H&P: Meds Cyclobenzaprine [Flexeril] 10 mg PO TID 09/12/14 [History] Docusate [Colace] 100 mg PO TID 09/12/14 [History] Doxepin [Sinequan] 50 mg PO HS 09/12/14 [History] Gabapentin [Neurontin] 300 mg PO TID 09/12/14 [History] Insulin ASPART [NovoLOG] 34 unit SQ QID 09/12/14 [History] Insulin Glargine,Hum.rec.anlog [Lantus Solostar] 75 unit SQ BID 09/12/14 [ History] Meclizine [Antivert] 25 mg PO TID 09/12/14 [History] Allopurinol [Zyloprim 100 MG] 100 mg PO DAILY 03/22/15 [History] DiphenhydraMINE [Benadryl] 25 mg PO TID 03/22/15 [History] Exenatide Microspheres [Bydureon Pen] 2 mg SQ MO 03/22/15 [History] Lidocaine Patch [Lidoderm 5% patch] 1 - 3 patch TP DAILY 03/22/15 [History] Nitroglycerin [Nitrostat] 0.4 mg SL Q5M PRN 03/22/15 [History] Promethazine [Phenergan] 25 mg PO TID 03/22/15 [History] clonazePAM [Klonopin] 1 mg PO HS 03/22/15 [History] Metoprolol XL (24 HR) Succ [Toprol Xl] 25 mg PO DAILY 07/31/15 [History] Warfarin [Coumadin] 4 mg PO Q48H 07/31/15 [History] Warfarin [Coumadin] 5 mg PO Q48H 07/31/15 [History] Furosemide [Lasix] 20 mg PO 1800,2330 03/02/16 [History] Furosemide [Lasix] 40 mg PO QAM 03/02/16 [History] Albuterol Neb [AccuNeb] 1.25 mg IH QID PRN 05/06/16 [History] Ammonium Lactate [Lac-Hydrin Five] 1 appl TP TID 05/06/16 [History] Levothyroxine [Synthroid] 250 mcg PO QAM 05/06/16 [History] Nystatin POWDER [Nystop] 1 appl TP QID 05/06/16 [History] Petrolatum,White [Aloe [place]] 1 appl TP BID 05/06/16 [History] Rosuvastatin [Crestor] 20 mg PO HS 05/06/16 [History] Acetaminophen [Tylenol] 650 mg PO Q4-6H 11/10/16 [History] Omeprazole [PriLOSEC] 40 mg PO DAILY 11/10/16 [History] Isosorbide MONOnitrate (24 HR) [Imdur] 60 mg PO QPM #30 tab.er.24h 11/11/16 [Rx] Potassium Chloride [Klor-Con 10] 10 meq PO BID 11/11/16 [History] 3 Allergy/AdvReac Type Severity Reaction Status Date / Time aspirin Allergy Hives Verified 05/16/16 01:37 cephalexin [From Keflex] Allergy Difficulty Verified 05/16/16 01:37 Breathing codeine Allergy Hypertensio Verified 05/16/16 01:37 n Cortisone Allergy See Verified 05/16/16 01:37 Comments hydrocortisone Allergy Hypertensio Verified 05/16/16 01:37 n ibuprofen Allergy Hives Verified 05/16/16 01:37 Iodinated Contrast- Oral and Allergy See Verified 05/16/16 01:37 IV Dye Comments [Iodinated Contrast Media - IV Dye] lidocaine [From Xylocaine] Allergy See Verified 05/16/16 01:37 Comments loratadine [From Claritin] Allergy Hives Verified 05/16/16 01:37 methylprednisolone Allergy Hypertensio Verified 05/16/16 01:37 [From Solu-Medrol] n Penicillins Allergy See Verified 05/16/16 01:37 Comments prednisone Allergy Hypertensio Verified 05/16/16 01:37 n Procaine [From Novocain] Allergy See Verified 05/16/16 01:37 Comments propoxyphene [From Darvon] Allergy See Verified 05/16/16 01:37 Comments pseudoephedrine Allergy Hives Verified 05/16/16 01:37 [From Sudafed] ropinirole [From Requip] Allergy See Verified 05/16/16 01:37 Comments tramadol AdvReac See Verified 05/20/16 15:19 Comments All Systems PM: A 10-system review of systems was performed and is negative for pertinent findings except as documented above in the HPI. - Constitutional Constitutional: no chills, no fever(s), no night sweats - EENT Eyes: no change in vision, no discharge, no pain, no photophobia Ears: no ear discharge, no ear pain, no tinnitus Nose, mouth and throat: no dysphagia, no nasal discharge, no neck pain, no sore throat - Cardiovascular Cardiovascular ROS IM: no chest pain, no diaphoresis, no dyspnea, no lightheadedness, no palpitations, no syncope - Respiratory Respiratory: no cough, no dyspnea, no wheezing, no excessive phlegm production - Gastrointestinal Gastrointestinal: no abdominal pain, no diarrhea, no hematemesis, no hematochezia, no melena, no nausea, no vomiting - Genitourinary Genitourinary: no change in urinary stream, no dysuria, no flank pain, no hematuria - Musculoskeletal Musculoskeletal ROS IM: no numbness, no tingling - Integumentary Integumentary IM: no rash, no unusual bruising - Neurological Neurological ROS: no confusion, no convulsions, no focal weakness, no numbness, no tingling, no tremor(s) - Hematologic/Lymphatic Hematologic/Lymphatic: no easy bruising - Constitutional Vitals: Temp Pulse Resp BP Pulse Ox 97.7 F 90 20 249/117 96 11/22/16 14:32 11/22/16 22:00 11/22/16 22:16 11/22/16 22:16 11/22/16 22:00 General appearance: Present: A&O X 3, morbidly obese, pleasant, answers questions appropriately - Head Head exam: Present: atraumatic, normocephalic - Eye Eye exam: Present: conjuntiva pink, sclera anicteric Additional comments: Pupils are equal in both eyes and according to ER resident and they are reactive symmetrically though on my examination this is not the case. Funduscopic examination showed optic discs with clear vascularity in the right eye. Unable to visualize through her right eye. - Neck Neck exam general surgery: Present: supple, trachea midline. Absent: lymphadenopathy - Respiratory Respiratory exam: Present: CTAB. Absent: accessory muscle use, rales, rhonchi, wheezes - Cardiovascular Cardiovascular exam: Present: RRR, +S1, +S2. Absent: diastolic murmur, gallop, rubs, systolic murmur - GI/Abdominal GI/Abdominal exam: Present: normal bowel sounds, soft, no peritoneal signs. Absent: distended, tenderness - Extremities Exam Extremities exam: Present: warm, radial pulses palpable and symmetrical. Absent : calf tenderness, cyanotic, pedal edema - Neurological Exam Neurological exam: Present: oriented X3, no focal deficits. Absent: pronater drift, facial droop, speech deficit Additional comments: Right eye examination noted above which showed pupil is equal and symmetrical. The Romberg test is positive and as she was not stood up she feels quite wobbly. - Skin Skin exam: Present: dry, intact Internal Med - H&P Results - Labs CBC & Chem 7: 11/22/16 17:57 11/22/16 17:57
[2016-11-23 00:55] LABS: Basophils % 0.4 %; Eosinophils # 0.2 K/mcL (0.0-0.6); Eosinophils % 3.3 %; Hematocrit 32.3 % (35.3-44.9); Hemoglobin 9.8 g/dL (11.5-15.4); Immature Granulocytes % 0.4 % (0-4); Lymphocytes # 1.5 K/mcL (0.6-4.6); Lymphocytes % 21.3 %; Mean Corpuscular HGB Conc 30.3 g/dL (31.6-35.5); Mean Corpuscular Volume 95.6 fL (83.0-100.0); Mean Platelet Volume 10.2 fL (9.4-12.4); Monocytes # 0.6 K/mcL (0.0-1.3); Monocytes % 7.9 %; Neutrophils # 4.6 K/mcL (1.6-8.9); Platelet Count 250 K/mcL (140-400); Red Blood Count 3.38 M/mcL (3.82-4.97); Red Cell Distribution Width 16.4 % (11.5-14.5); Segmented Neutrophils % 66.7 %
[2016-11-23 01:02] LABS: Hemoglobin A1C 6.4 %
[2016-11-23 01:10] LABS: Chol/HDL Ratio 6.6 (0-4.9)
[2016-11-23 01:11] LABS: Albumin 2.6 g/dL (3.5-5.0); Albumin/Globulin Ratio 0.5 (1.1-2.2); Bilirubin,Total 0.2 mg/dL (0.2-1.2); Calcium 9.6 mg/dL (8.6-10.8); Globulin 4.9 g/dL (2.4-3.5); Total Protein 7.5 g/dL (6.0-8.3)
[2016-11-23 01:13] LABS: INR 1.9; Prothrombin Time 20.2 Seconds (9.4-12.1)
[2016-11-23] MEDS: Insulin LISPRO 300 UNITS/3 ML VIAL SQ SCH ×6 (01:23→20:44)
[2016-11-23] MEDS: clonazePAM 1 MG TABLET PO SCH ×2 (01:35→20:43)
[2016-11-23] MEDS: Gabapentin 300 MG CAPSULE PO SCH ×4 (01:35→20:43)
[2016-11-23] MEDS: Isosorbide MONOnitrate (24 HR) 30 MG TAB.ER.24H PO SCH ×2 (01:35→16:55)
[2016-11-23] MEDS: Acetaminophen 325 MG TABLET PO PRN ×2 (02:03→20:51)
[2016-11-23] MEDS: Insulin DETEMIR 100 UNIT/ML X5UNITS SQ SCH ×3 (02:04→20:52)
[2016-11-23] MEDS: Ipratropium/Albuterol Neb 3 ML IH SCH ×5 (03:51→22:37)
[2016-11-23] MEDS ORDERED: Furosemide 20 MG TABLET PO SCH (08:00)
[2016-11-23] MEDS: Metoprolol XL (24 HR) Succ 25 MG TAB.ER.24H PO SCH (08:51)
[2016-11-23] MEDS: Furosemide 40 MG TABLET PO SCH (08:52)
[2016-11-23] MEDS: Nystatin POWDER 30 GM BOTTLE TP SCH ×4 (08:52→20:43)
[2016-11-23] MEDS ORDERED: predniSONE 20 MG TABLET PO SCH ×2 (09:00→12:00)
[2016-11-23] MEDS ORDERED: Perflutren Lipid Microsphere 1.3 ML in 0.9 % Sodium Chloride 8.7 ML IVP ONE (09:08)
[2016-11-23] MEDS: Furosemide 20 MG TABLET PO SCH (14:04)
--- NOTE | 2016-11-23 15:01 | Neurology - Consult Note ---
Date of Encounter: 11/23/16 Time of Encounter: 14:56 Assessment and Plan (1) Transient monocular blindness Current Visit: Yes Status: Acute Given the nature of the onset of her right eye visual loss in the absence of pain I suspect we are dealing with a vascular explanation here. She has had a carotid Doppler study which reveals 60-79% stenosis right internal carotid artery. She also has diabetes, and uncontrolled hypertension which are also risk factors for small vessel disease. I am concerned about the possibility of a central retinal artery occlusion or perhaps a branch artery occlusion. Another differential would be considered as a possibility of temporal arteritis as she does have pain in the right temporal region, her sedimentation rate is elevated, and she does complain of tenderness of the scalp and jaws. I believe that the headache that she had yesterday was more consistent with her general migraines. I would recommend consultation with vascular as I believe that the right internal carotid artery stenosis is a risk for further vascular events and perhaps even right cerebral infarction. Would also consider a right temporal artery biopsy as well as consultation with ophthalmology for bedside dilated funduscopic examination, to assess for Hollenhorst plaques. I did not find evidence of an acute cerebral infarction. Particularly there was no evidence of left-sided weakness in this case. I will reevaluate her at your request. Qualifiers: Qualified Code(s): H53.121 - Transient visual loss, right eye History of Present Illness HPI: Ms. Mars is a 61 year old female who was seen for neurologic consultation at the request of internal medicine due to acute painless right eye vision loss. She denies any eye pain however she does have a history of migraine headaches and has had for many years. However about 2 or 3 days ago she began having complaints of visual loss in the right eye which is fairly acute. Over the past few days she has had some return of vision however she sees significant alterations in colors and also has problems with visual clarity in the right eye. She has a history of medical noncompliance she is diabetic, when she was admitted she had a blood pressure of 215/84. Other risk factors include morbid obesity hypertension. Since admission she has had carotid duplex Doppler study which does reveal 60-79% of the right internal carotid artery. She has a very elevated sedimentation rate. Greater than 130. She does seem to have some right temporal tenderness. She really does not give a strong history for scalp claudication she states her scalp hurts all over. She also gives a soft affirmative answer for jaw claudication and tongue claudication. Therefore I do believe the temporal arteritis should be considered. Past Med Surg Social Fam HX - Past Medical History Medical history: arthritis, CHF, COPD, DVT, diabetes, GERD, hyperlipidemia, hypertension, migraine, osteoporosis, renal disease, thyroid disease, other Psychiatric history: anxiety, depression - Past Surgical History Surgical History: appendectomy, hysterectomy, orthopedic, other, other, IVC filter - Social History Smoking Status: Former smoker Smokeless Tobacco Status: No Alcohol use: none Drug use: none - Family History Mother Living Status: Hx Family Cardiac Disorders: Yes Hx Family Cancer: Yes Hx Family Endocrine Disorder: Yes (DIABETES MELLITUS.) Medications and Allergies Cyclobenzaprine [Flexeril] 10 mg PO TID 09/12/14 [History] Docusate [Colace] 100 mg PO TID 09/12/14 [History] Doxepin [Sinequan] 50 mg PO HS 09/12/14 [History] Gabapentin [Neurontin] 300 mg PO TID 09/12/14 [History] Insulin ASPART [NovoLOG] 34 unit SQ QID 09/12/14 [History] Insulin Glargine,Hum.rec.anlog [Lantus Solostar] 75 unit SQ BID 09/12/14 [ History] Meclizine [Antivert] 25 mg PO TID 09/12/14 [History] Allopurinol [Zyloprim 100 MG] 100 mg PO DAILY 03/22/15 [History] DiphenhydraMINE [Benadryl] 25 mg PO TID 03/22/15 [History] Exenatide Microspheres [Bydureon Pen] 2 mg SQ MO 03/22/15 [History] Lidocaine Patch [Lidoderm 5% patch] 1 - 3 patch TP DAILY 03/22/15 [History] Nitroglycerin [Nitrostat] 0.4 mg SL Q5M PRN 03/22/15 [History] Promethazine [Phenergan] 25 mg PO TID 03/22/15 [History] clonazePAM [Klonopin] 1 mg PO HS 03/22/15 [History] Metoprolol XL (24 HR) Succ [Toprol Xl] 25 mg PO DAILY 07/31/15 [History] Warfarin [Coumadin] 4 mg PO Q48H 07/31/15 [History] Warfarin [Coumadin] 5 mg PO Q48H 07/31/15 [History] Furosemide [Lasix] 20 mg PO 1800,2330 03/02/16 [History] Furosemide [Lasix] 40 mg PO QAM 03/02/16 [History] Albuterol Neb [AccuNeb] 1.25 mg IH QID PRN 05/06/16 [History] Ammonium Lactate [Lac-Hydrin Five] 1 appl TP TID 05/06/16 [History] Levothyroxine [Synthroid] 250 mcg PO QAM 05/06/16 [History] Nystatin POWDER [Nystop] 1 appl TP QID 05/06/16 [History] Petrolatum,White [Aloe [place]] 1 appl TP BID 05/06/16 [History] Rosuvastatin [Crestor] 20 mg PO HS 05/06/16 [History] Acetaminophen [Tylenol] 650 mg PO Q4-6H 11/10/16 [History] Omeprazole [PriLOSEC] 40 mg PO DAILY 11/10/16 [History] Isosorbide MONOnitrate (24 HR) [Imdur] 60 mg PO QPM #30 tab.er.24h 11/11/16 [Rx] Potassium Chloride [Klor-Con 10] 10 meq PO BID 11/11/16 [History] 3 Allergy/AdvReac Type Severity Reaction Status Date / Time aspirin Allergy Hives Verified 05/16/16 01:37 cephalexin [From Keflex] Allergy Difficulty Verified 05/16/16 01:37 Breathing codeine Allergy Hypertensio Verified 05/16/16 01:37 n Cortisone Allergy See Verified 05/16/16 01:37 Comments hydrocortisone Allergy Hypertensio Verified 05/16/16 01:37 n ibuprofen Allergy Hives Verified 05/16/16 01:37 Iodinated Contrast- Oral and Allergy See Verified 05/16/16 01:37 IV Dye Comments [Iodinated Contrast Media - IV Dye] lidocaine [From Xylocaine] Allergy See Verified 05/16/16 01:37 Comments loratadine [From Claritin] Allergy Hives Verified 05/16/16 01:37 methylprednisolone Allergy Hypertensio Verified 05/16/16 01:37 [From Solu-Medrol] n Penicillins Allergy See Verified 05/16/16 01:37 Comments prednisone Allergy Hypertensio Verified 05/16/16 01:37 n Procaine [From Novocain] Allergy See Verified 05/16/16 01:37 Comments propoxyphene [From Darvon] Allergy See Verified 05/16/16 01:37 Comments pseudoephedrine Allergy Hives Verified 05/16/16 01:37 [From Sudafed] ropinirole [From Requip] Allergy See Verified 05/16/16 01:37 Comments tramadol AdvReac See Verified 05/20/16 15:19 Comments All Systems: A 10-system review of systems was performed and is negative for pertinent findings except as documented above in the HPI. Review of Systems: 10 point review of systems consistent with history of present illness otherwise negative. Physical Examination - Vital Signs Vital Signs: Initial Vital Signs Temp Pulse Resp BP Pulse Ox 97.7 F 57 18 221/103 99 11/22/16 14:32 11/22/16 14:32 11/22/16 14:32 11/22/16 14:32 11/22/16 14:32 - Neurologic Sensorimotor examination: other (There is a decreased sensation to pinprick in a distal to proximal gradient.) Motor examination - right side: 5/5: deltoids, biceps, triceps, psychologist educational, hip flexors, tibialis Anterior, quadriceps, toe extension (EHL), plantarflexion Motor examination - left side: 5/5: deltoids, biceps, triceps, hip flexors, psychologist educational , quadriceps, tibialis Anterior, toe extension (EHL), plantarflexion Reflex and gait examination: other (Deep tendon reflexes are diminished throughout.) Mental Status Examination: awake, alert, oriented to person, oriented to place, oriented to time, follows commands appropriately, answers questions appropriately, no agnosia, no aphasia, no aproxia Cranial nerve examination: PERRL, EOMI, visual perude intact, corneal reflexes brisk symmetrically, sensory to face intact, mastication intact, no facial asymmetry is present, no dysarthria, hearing is intact symmetrically, soft palate elevates bilaterally upon phonation, gag reflex intact, flexes SCM and trapezius muscles symmetrically with full power, tongue protrudes midline, no atrophy or facial fasiculations present Cerebellar examination: no dysmetria, performs finger to nose and heel to gomez symmetrically without ataxia Results - Laboratory Findings CBC and BMP: 11/23/16 00:33 11/23/16 00:33 Abnormal lab findings: Abnormal lab results RBC 3.38 M/mcL (3.82-4.97) L 11/23/16 00:33 Hgb 9.8 g/dL (11.5-15.4) L 11/23/16 00: Hct 32.3 % (35.3-44.9) L 11/23/16 00: MCHC 30.3 g/dL (31.6-35.5) L 11/23/16 00: RDW 16.4 % (11.5-14.5) H 11/23/16 00:33 ESR >= 130 mm/hr (0-15) H 11/23/16 00: PT 20.2 Seconds (9.4-12.1) H 11/23/16 00: Carbon Dioxide 31 mEq/L (19-29) H 11/23/16 00: BUN 36 mg/dL (7-20) H 11/23/16 00: Creatinine 2.23 mg/dL (0.57-1.11) H 11/23/16 00: Est GFR ( Amer) 27 (> 60) L 11/23/16 00:33 Est GFR (Non-Af Amer) 22 (> 60) L 11/23/16 00: Glucose 163 mg/dL (70-99) H 11/23/16 00:33 POC Glucose 168 (58-89) H 11/23/16 00:17 Hemoglobin A1c 6.4 % (-5.6) H 11/23/16 00: Calculated Osmolality 306 (280-300) H 11/23/16 00:33 C-Reactive Protein 14 mg/L (Less than 5) H 11/23/16 00:33 Albumin 2.6 g/dL (3.5-5.0) L 11/23/16 00: Globulin 4.9 g/dL (2.4-3.5) H 11/23/16 00:33 Albumin/Globulin Ratio 0.5 (1.1-2.2) L 11/23/16 00: Triglycerides 373 mg/dL (< 150) H 11/23/16 00:33 Cholesterol 331 mg/dL (< 200) H 11/23/16 00:33 LDL Cholesterol, Calc 206 mg/dL (0-99) H 11/23/16 00:33 VLDL Cholesterol, Calc 75 mg/dL (< 31) H 11/23/16 00:33 Cholesterol/HDL Ratio 6.6 (0-4.9) H 11/23/16 00:33 Consult Discharge Plan - Plan Referrals: Mauro Dockery MD [Primary Care Provider] -
[2016-11-23] MEDS ORDERED: *HR* Warfarin 5 MG TABLET PO SCH (18:00)
[2016-11-23] MEDS ORDERED: Warfarin perPT PO PRN (18:00)
[2016-11-23] MEDS: methylPREDNISolone 250 MG in 0.9 % Sodium Chloride 50 ML IVPB SCH (18:18)
[2016-11-23] MEDS ORDERED: MethylPREDNISolone 40 MG/ML VIAL IVP ONE (18:30)
--- NOTE | 2016-11-23 19:30 | Internal Med Progress Note ---
Date of Encounter: 11/23/16 Time of Encounter: 13:45 - Assessment and plan (1) Monocular visual disturbance Current Visit: Yes Status: Acute Assessment and plan: Patient was sent to the emergency department from primary care provider office with complaint of vision loss to right eye for 2 days prior to admission. Differentials include temporal arteritis versus retinal artery occlusion. Patient reports minimal central vision, no peripheral vision. She does report seems to be improving slightly today. She is unable to discern any definition or images, she can see shapes and light. CTA head and neck is pending. Vascular surgery has been consulted and will call with results of this test. Due to patient's alleged allergy, she is going to require premedication and preparation. Patient is refusing MRI due to anxiety and difficulty breathing. I also spoke with Dr. Dobbins who will come see patient in the morning. Patient is tender to palpation on right moravian. She also complains of jaw claudication and headache on that side as well. Patient also has up to 79% carotid stenosis on the right as well. Patient has been started on high-dose methylprednisone, 1000 mg IV daily for 3 days. Continue to monitor patient's condition. Patient will need close monitoring for Accu-Cheks. CTA head and neck pending Vascular and ophthalmology on board. I appreciate their recommendations and consultations. (2) Diabetes Current Visit: Yes Status: Chronic Assessment and plan: A1c is 6.4. Continue Accu-Cheks, sliding scale insulin, diabetic diet. Patient may need extra sliding scale insulin due to high-dose steroids. 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 GFR appears to be patient's baseline this calendar year. Continue to monitor labs and vital signs and avoid nephrotoxins. Qualifiers: Chronic kidney disease stage: stage 3 (moderate) Qualified Code(s): N18.3 - Chronic kidney disease, stage 3 (moderate) (4) Morbid obesity with BMI of 60.0-69.9, adult Current Visit: Yes Status: Chronic Assessment and plan: Chronic. Lifestyle changes. (5) Temporal arteritis Current Visit: Yes Status: Suspected Assessment and plan: Suspected. Patient reports right-sided headache, tenderness to palpation to right moravian, vision loss in right eye, right jaw claudication. Plan as above. (6) DVT prophylaxis Current Visit: Yes Status: Acute Assessment and plan: Patient is on Coumadin. Pharmacy to dose. Monitor INR. - Time Spent With Patient 25 - 35 minutes - Subjective Interval history: Patient was seen and assessed at 1345 today. Patient reports that she feels like there is some improvement in her vision. She reports having minimal central vision, no peripheral vision. She reports seeing bands of color. She is able to see shapes, but is not able to do discern words or images. On physical exam, patient is tender to palpation on right moravian a reports jaw claudication. She also reports chronic headaches. Required much encouragement to get patient to agree to CTA of head and neck. Since she is allegedly allergic to contrast, she is going to require prep for [address] - Constitutional Vitals: Temp Pulse Resp BP Pulse Ox 98.1 F 95 18 165/84 99 11/23/16 15:16 11/23/16 15:16 11/23/16 16:36 11/23/16 15:16 11/23/16 16:36 General appearance: Present: A&O X 3, morbidly obese, pleasant, answers questions appropriately - Head Head exam: Present: atraumatic, normal inspection, normocephalic - Expanded Head Exam Head exam expanded: Present: tenderness of temporal artery - Eye Eye exam: Present: EOMI, normal appearance, periorbital tenderness, conjuntiva pink, sclera anicteric. Absent: nystagmus - Neck Neck exam general surgery: Present: supple, trachea midline. Absent: lymphadenopathy - Respiratory Respiratory exam: Present: CTAB. Absent: accessory muscle use, rales, rhonchi, wheezes - Cardiovascular Cardiovascular exam: Present: RRR, +S1, +S2. Absent: diastolic murmur, gallop, rubs, systolic murmur - GI/Abdominal GI/Abdominal exam: Present: normal bowel sounds, soft, no peritoneal signs. Absent: distended, hepatomegaly, tenderness - Extremities Exam Extremities exam: Present: normal capillary refill, normal inspection, tenderness, warm, radial pulses palpable and symmetrical. Absent: calf tenderness, cyanotic, pedal edema - Neurological Exam Neurological exam: Present: alert, oriented X3. Absent: facial droop, speech deficit - Skin Skin exam: Present: dry, intact, normal color, warm. Absent: rash Internal Medicine: Result - Labs CBC & Chem 7: 11/23/16 00:33 11/23/16 00:33 Labs: Short CBC 11/23/16 Range/Units 00:33 WBC 7.0 (4.3-11.1) K/mcL Hgb 9.8 L (11.5-15.4) g/dL Hct 32.3 L (35.3-44.9) % Plt Count 250 (140-400) K/mcL Neutrophils # 4.6 (1.6-8.9) K/mcL BMP 11/23/16 00:33 Sodium 142 Potassium 4.0 Chloride 101 Carbon Dioxide 31 H BUN 36 H Creatinine 2.23 H Glucose 163 H Calcium 9.6 Liver Function 11/23/16 Range/Units 00:33 Total Bilirubin 0.2 (0.2-1.2) mg/dL AST 12 (5-34) Units/L ALT 6 (0-55) Units/L Alkaline Phosphatase 105 (38-126) Units/L Albumin 2.6 L (3.5-5.0) g/dL - ABG Interpretation ABG results: PT/INR, D-dimer PT 20.2 Seconds (9.4-12.1) H 11/23/16 00:33 - Impressions Impressions Echocardiogram 11/23/16 23:59 Impressions: Technically suboptimal due to poor echocardiographic windows. Definity contrast utilized. Overall LV function appears grossly normal. EF 60-65% No significant valvular heart disease by Doppler criteria. There is no evidence of a PFO by color Doppler or saline contrast. Suggest ESTELITA if clinically indicated. Left Ventricular Wall Motion: Rest Echo Findings All wall segments showed normal motion. Findings: Study Quality * Technically sub-optimal due to poor echocardiographic windows. No subcostal images suitable for interpretation. ECG Findings * Normal sinus rhythm. Left Ventricle * LVEF 60-65%. * Grossly normal LV systolic function. Cannot exclude subtle wall motion abnormalities due to technical limitiations of study. * Definity echo contrast was used. Right Ventricle * Not well visualized. Grossly normal Left Atrium * Moderately dilated left atrium. Right Atrium * Normal right atrial size. Interatrial Septum * No evidence of PFO by color Doppler. * No evidence of PFO with agitated saline contrast. Aortic Valve * Aortic valve not well visualized. * No aortic regurgitation. * No aortic stenosis. Mitral Valve * Mild mitral annular calcification * Normal mitral valve structure. * No mitral regurgitation. Tricuspid Valve * Tricuspid valve not well visualized. * Trace tricuspid regurgitation. * Unable to estimate RVSP due to lack of TR jet. Pulmonic Valve * Pulmonic valve not well visualized. Aorta * Not well visualized Pericardium * There is no pericardial effusion present. IVC * The IVC is not well evaluated. Consult Discharge Plan - Plan Referrals: Mauro Dockery MD [Primary Care Provider] -
[2016-11-24] MEDS ORDERED: MethylPREDNISolone 40 MG/ML VIAL IVP ONE (00:30)
[2016-11-24] MEDS: methylPREDNISolone 250 MG in 0.9 % Sodium Chloride 50 ML IVPB SCH ×4 (00:56→18:28)
[2016-11-24] MEDS: Furosemide 20 MG TABLET PO SCH ×3 (00:57→21:48)
[2016-11-24] MEDS: Ipratropium/Albuterol Neb 3 ML IH SCH ×4 (04:48→23:12)
[2016-11-24] MEDS ORDERED: methylPREDNISolone 125 MG/2 ML VIAL IVP ONE (06:30)
[2016-11-24 07:21] LABS: Hematocrit 29.9 % (35.3-44.9); Hemoglobin 9.1 g/dL (11.5-15.4); Immature Granulocytes % 0.9 % (0-4); Lymphocytes # 0.7 K/mcL (0.6-4.6); Lymphocytes % 11.8 %; Mean Corpuscular HGB Conc 30.4 g/dL (31.6-35.5); Mean Corpuscular Hemoglobin 28.6 pg (28.0-33.3); Mean Platelet Volume 10.8 fL (9.4-12.4); Monocytes # 0.1 K/mcL (0.0-1.3); Monocytes % 0.9 %; Neutrophils # 5.1 K/mcL (1.6-8.9); Platelet Count 248 K/mcL (140-400); Prothrombin Time 21.7 Seconds (9.4-12.1); Red Blood Count 3.18 M/mcL (3.82-4.97); Red Cell Distribution Width 16.4 % (11.5-14.5); Segmented Neutrophils % 86.4 %
[2016-11-24] MEDS: Gabapentin 300 MG CAPSULE PO SCH ×3 (08:16→21:45)
[2016-11-24] MEDS: Furosemide 40 MG TABLET PO SCH (08:17)
[2016-11-24] MEDS: Metoprolol XL (24 HR) Succ 25 MG TAB.ER.24H PO SCH (08:17)
[2016-11-24] MEDS: Nystatin POWDER 30 GM BOTTLE TP SCH ×4 (08:17→21:50)
[2016-11-24 08:33] LABS: Calcium 8.9 mg/dL (8.6-10.8)
[2016-11-24 08:49] LABS: Potassium 5.2 mEq/L (3.5-4.5)
[2016-11-24] MEDS: Insulin DETEMIR 100 UNIT/ML X5UNITS SQ SCH ×2 (08:51→21:45)
[2016-11-24] MEDS: Insulin LISPRO 300 UNITS/3 ML VIAL SQ SCH ×5 (08:51→21:49)
--- NOTE | 2016-11-24 11:18 | Electrocardiograph Report ---
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
--- NOTE | 2016-11-24 12:42 | Internal Medicine Consult Note ---
Date of Encounter: 11/24/16 Time of Encounter: 12:22 Internal Medicine - CN: HPI - Data of Consult Requesting Physician: Tara Andre CNP Patient is a 61-year-old white female with complaint of right eye vision loss. She reports that Friday, 4 days ago, she noticed black dots in the vision of her right eye that got bigger and on she reports that she could not see. She did see black and purple and red spots in her vision. She reports after getting Solu-Medrol that she did gain some peripheral vision. She reports that she had pain behind her right ear that extended to her right christianity and right periorbital region and then she would experience the same thing on her left side. She does report tenderness with the chewing. She also reports stiffness of her upper limbs and thighs. Examination revealed visual acuity with correction of 20/.70+2 in the right eye and 20/25 in the left eye (near equivalent Snellen") pupils were equal round and reactive to light with no relative afferent pupillary defects noted. Confrontation visual perdue revealed possible mild constriction of the peripheral vision in the right eye but otherwise unremarkable in the right eye and her confrontation visual perdue were normal in the left eye. Extraocular motility testing revealed full excursion of both eyes to wall cardinal positions of gaze. External examination was unremarkable. Slit lamp examination revealed normal eyelids in both eyes. The conjunctiva was normal in both eyes. The cornea was clear and normal in both eyes. The anterior chamber was shallow grade slit 2+1 in both eyes. The anterior chamber was clear in both eyes. The iris was normal in both eyes. The lens had +2 to +3 nuclear sclerosis with trace cortical lens spokes in both eyes. The intraocular pressure was normal at 13 mmHg in the right eye and 8 mmHg in the left eye via applanation. The pupils were dilated with 1% tropicamide and 10% phenylephrine drops. Further examination after dilation of the pupils revealed a clear Trias in both eyes. The optic nerve heads appeared normal with a cup-to -disc ratio of 0.45 OD and 0.3 OS. Prominent intraretinal hemorrhages and microaneurysms were noted in the right and left eyes. There was a large hemorrhage along the inferotemporal vascular arcade in the right eye with an associated cotton-wool spot. Otherwise, the retinal periphery was unremarkable. There did appear to be probable macular edema in the right eye. The macula in the left eye appeared unremarkable other than the previously mentioned intraretinal hemorrhages and microaneurysms. Impression: prominent nonproliferative diabetic retinopathy in both eyes in the appearance of a possible central retinal vein occlusion in both eyes. This could be a complication of the patient's diabetes and hypertension and it could be secondary to a hypercoagulable state. Recommendation: Following discharge the patient should be referred to Kelli Chamorro D.O. at the [facility] [address] [place] [address] [place] [address] telephone number [phone] or [phone]. Please send a copy of this consultation to Dr. Chamorro's office when patient is discharged. Thank you. - Consult Narrative History of present illness: Ms. Mars is a 61 year old female Past Med Surg Social Fam HX - Past Medical History Medical history: arthritis, CHF, COPD, DVT, diabetes, GERD, hyperlipidemia, hypertension, migraine, osteoporosis, renal disease, thyroid disease, other Psychiatric history: anxiety, depression - Past Surgical History Surgical History: appendectomy, hysterectomy, orthopedic, other, other, IVC filter - Social History Smoking Status: Former smoker Smokeless Tobacco Status: No Alcohol use: none Drug use: none - Family History Mother Living Status: Hx Family Cardiac Disorders: Yes Hx Family Cancer: Yes Hx Family Endocrine Disorder: Yes (DIABETES MELLITUS.) Internal Medicine - CN: Meds Cyclobenzaprine [Flexeril] 10 mg PO TID 09/12/14 [History] Docusate [Colace] 100 mg PO TID 09/12/14 [History] Doxepin [Sinequan] 50 mg PO HS 09/12/14 [History] Gabapentin [Neurontin] 300 mg PO TID 09/12/14 [History] Insulin ASPART [NovoLOG] 34 unit SQ QID 09/12/14 [History] Insulin Glargine,Hum.rec.anlog [Lantus Solostar] 75 unit SQ BID 09/12/14 [ History] Meclizine [Antivert] 25 mg PO TID 09/12/14 [History] Allopurinol [Zyloprim 100 MG] 100 mg PO DAILY 03/22/15 [History] DiphenhydraMINE [Benadryl] 25 mg PO TID 03/22/15 [History] Exenatide Microspheres [Bydureon Pen] 2 mg SQ MO 03/22/15 [History] Lidocaine Patch [Lidoderm 5% patch] 1 - 3 patch TP DAILY 03/22/15 [History] Nitroglycerin [Nitrostat] 0.4 mg SL Q5M PRN 03/22/15 [History] Promethazine [Phenergan] 25 mg PO TID 03/22/15 [History] clonazePAM [Klonopin] 1 mg PO HS 03/22/15 [History] Metoprolol XL (24 HR) Succ [Toprol Xl] 25 mg PO DAILY 07/31/15 [History] Warfarin [Coumadin] 4 mg PO Q48H 07/31/15 [History] Warfarin [Coumadin] 5 mg PO Q48H 07/31/15 [History] Furosemide [Lasix] 20 mg PO 1800,2330 03/02/16 [History] Furosemide [Lasix] 40 mg PO QAM 03/02/16 [History] Albuterol Neb [AccuNeb] 1.25 mg IH QID PRN 05/06/16 [History] Ammonium Lactate [Lac-Hydrin Five] 1 appl TP TID 05/06/16 [History] Levothyroxine [Synthroid] 250 mcg PO QAM 05/06/16 [History] Nystatin POWDER [Nystop] 1 appl TP QID 05/06/16 [History] Petrolatum,White [Aloe [place]] 1 appl TP BID 05/06/16 [History] Rosuvastatin [Crestor] 20 mg PO HS 05/06/16 [History] Acetaminophen [Tylenol] 650 mg PO Q4-6H 11/10/16 [History] Omeprazole [PriLOSEC] 40 mg PO DAILY 11/10/16 [History] Isosorbide MONOnitrate (24 HR) [Imdur] 60 mg PO QPM #30 tab.er.24h 11/11/16 [Rx] Potassium Chloride [Klor-Con 10] 10 meq PO BID 11/11/16 [History] 3 Allergy/AdvReac Type Severity Reaction Status Date / Time aspirin Allergy Hives Verified 05/16/16 01:37 cephalexin [From Keflex] Allergy Difficulty Verified 05/16/16 01:37 Breathing codeine Allergy Hypertensio Verified 05/16/16 01:37 n Cortisone Allergy See Verified 05/16/16 01:37 Comments hydrocortisone Allergy Hypertensio Verified 05/16/16 01:37 n ibuprofen Allergy Hives Verified 05/16/16 01:37 Iodinated Contrast- Oral and Allergy See Verified 05/16/16 01:37 IV Dye Comments [Iodinated Contrast Media - IV Dye] lidocaine [From Xylocaine] Allergy See Verified 05/16/16 01:37 Comments loratadine [From Claritin] Allergy Hives Verified 05/16/16 01:37 methylprednisolone Allergy Hypertensio Verified 05/16/16 01:37 [From Solu-Medrol] n Penicillins Allergy See Verified 05/16/16 01:37 Comments prednisone Allergy Hypertensio Verified 05/16/16 01:37 n Procaine [From Novocain] Allergy See Verified 05/16/16 01:37 Comments propoxyphene [From Darvon] Allergy See Verified 05/16/16 01:37 Comments pseudoephedrine Allergy Hives Verified 05/16/16 01:37 [From Sudafed] ropinirole [From Requip] Allergy See Verified 05/16/16 01:37 Comments tramadol AdvReac See Verified 05/20/16 15:19 Comments Internal Medicine - CN: Exam - Constitutional Vitals: Temp Pulse Resp BP Pulse Ox 97.4 F L 99 16 177/90 99 11/24/16 12:12 11/24/16 12:12 11/24/16 12:12 11/24/16 12:12 11/24/16 12:12 Internal Medicine - CN: Reslt - Labs CBC & Chem 7: 11/24/16 06:17 11/24/16 06:17 Labs: Short CBC 11/24/16 Range/Units 06:17 WBC 5.9 (4.3-11.1) K/mcL Hgb 9.1 L (11.5-15.4) g/dL Hct 29.9 L (35.3-44.9) % Plt Count 248 (140-400) K/mcL Neutrophils # 5.1 (1.6-8.9) K/mcL BMP 11/24/16 06:17 Sodium 135 L Potassium 5.2 H D Chloride 99 Carbon Dioxide 24 BUN 54 H D Creatinine 2.74 H Glucose 453 H Calcium 8.9 - ABG Interpretation ABG results: PT/INR, D-dimer PT 21.7 Seconds (9.4-12.1) H 11/24/16 06:17 - Impressions Impressions Echocardiogram 11/23/16 23:59 Impressions: Technically suboptimal due to poor echocardiographic windows. Definity contrast utilized. Overall LV function appears grossly normal. EF 60-65% No significant valvular heart disease by Doppler criteria. There is no evidence of a PFO by color Doppler or saline contrast. Suggest ESTELITA if clinically indicated. Left Ventricular Wall Motion: Rest Echo Findings All wall segments showed normal motion. Findings: Study Quality * Technically sub-optimal due to poor echocardiographic windows. No subcostal images suitable for interpretation. ECG Findings * Normal sinus rhythm. Left Ventricle * LVEF 60-65%. * Grossly normal LV systolic function. Cannot exclude subtle wall motion abnormalities due to technical limitiations of study. * Definity echo contrast was used. Right Ventricle * Not well visualized. Grossly normal Left Atrium * Moderately dilated left atrium. Right Atrium * Normal right atrial size. Interatrial Septum * No evidence of PFO by color Doppler. * No evidence of PFO with agitated saline contrast. Aortic Valve * Aortic valve not well visualized. * No aortic regurgitation. * No aortic stenosis. Mitral Valve * Mild mitral annular calcification * Normal mitral valve structure. * No mitral regurgitation. Tricuspid Valve * Tricuspid valve not well visualized. * Trace tricuspid regurgitation. * Unable to estimate RVSP due to lack of TR jet. Pulmonic Valve * Pulmonic valve not well visualized. Aorta * Not well visualized Pericardium * There is no pericardial effusion present. IVC * The IVC is not well evaluated. Head CTA 11/24/16 07:30 IMPRESSION: No evidence of intracranial hemorrhage or mass effect. Poor visualization of the proximal right cervical vertebral artery, V1 and proximal V2 segments. This may be due to occlusion or artifact. The distal cervical right vertebral artery is diminutive in caliber. 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 Otherwise unremarkable CTA examination of the head. D/ / Pee Taveras MD / Pee Taveras MD Interpreting Provider: Pee Taveras MD Neck CTA 11/24/16 07:30 IMPRESSION: No evidence of intracranial hemorrhage or mass effect. Poor visualization of the proximal right cervical vertebral artery, V1 and proximal V2 segments. This may be due to occlusion or artifact. The distal cervical right vertebral artery is diminutive in caliber. 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 Otherwise unremarkable CTA examination of the head. D/ / Pee Taveras MD / Pee Taveras MD Interpreting Provider: Pee Taveras MD Consult Discharge Plan - Plan Referrals: Mauro Dockery MD [Primary Care Provider] -
--- NOTE | 2016-11-24 13:04 | Vascular/Endovasc Consult Note ---
Date of Encounter: 11/24/16 Time of Encounter: 12:59 Assessment and Plan (1) Transient monocular blindness Current Visit: Yes Status: Acute Patient had abrupt right eye blindness beginning rn allergy Friday of this week. Since her admission and treatment with Solu-Medrol the patient has had an improvement where she is now able to see in the periphery via the right eye but is not able to see in the right central area. Earlier today the patient was seen by ophthalmology who has placed a consultation on the chart indicating venous thrombosis despite the patient's use of anticoagulant. On my review of the carotid duplex scan and a CT angiogram I find no significant large vessel disease indicating the need for further diagnostic testing or to consider the patient for carotid angiography or carotid endarterectomy. This was discussed in full with the patient and she was reassured that this type of surgical intervention is not indicated. The only outstanding issue at this time is the concern regarding temporal arteritis. The patient has marked abnormalities by blood testing but also has significant ophthalmologic findings. I will await the primary team to review this information. If a temporal artery biopsy is still deemed appropriate please inform me of this and I will schedule patient for a right temporal artery biopsy on Friday afternoon. Also this decision needs to be made today as her Coumadin needs to be held for at least 48 hours prior to surgery. Again, this was reviewed in detail with the patient and her . They understand the potential indication for temporal artery biopsy showed the primary team deemed this appropriate and also the need for cessation of Coumadin therapy beginning today. Otherwise if this is judged not to be necessary at this time I will sign off the case. The patient may be re-deferred back to the clinic on a when necessary basis. Qualifiers: Laterality: right Qualified Code(s): H53.121 - Transient visual loss, right eye - History of Present Illness Consult date: 11/24/16 Requesting physician: Tara Anrde Consult reason: Right visual loss and abnormal carotid duplex scan Chief complaint: Loss of right eye vision History of present illness: Ms. Mars is a 61 year old female Was admitted 2 days ago with right eye blindness. This was an acute change that had begun early in the morning on this past Friday. It began as a black colored spot in the eye which progressed and then she had complete loss of vision in the right eye. She denies any left eye symptoms. The patient then came to the ER yesterday and was admitted. The patient denies any previous similar eye symptoms. She specifically denies any episodes of amaurosis fugax. She denies any history of eye trauma. Associated with this was a headache though the patient is troubled with bifrontal chronic migraine headaches. There is also some issue of potential jaw and facial pain though this is ill described by the patient during my interview today. The patient did experience some periorbital pain though this is resolved. Also noted was a marked elevation of the patient's sedimentation rate and C-reactive protein. As part of her evaluation a carotid duplex scan was performed yesterday. This demonstrated 40-59% carotid artery stenosis bilaterally and I personally reviewed the images. In addition the patient had further testing including an echocardiogram. She also had a CT Kim Troncoso of the neck and brain performed earlier this morning. I have personally reviewed those images as well. I do not see any significant stenosis. The patient does have tortuosity of the vessels which may have led to the increase in velocity and the finding by carotid duplex scan of the 40-59% stenosis. Interestingly the patient is on lifelong Coumadin for multiple episodes of DVT. She states that she has had DVT in both lower extremities and approximate 20 years ago had an IVC filter placed. In addition to this issue she also has chronic hypertension and diabetes as well as congestive heart failure COPD hypothyroidism and congestive heart failure. Past Med Surg Social Fam HX - Past Medical History Medical history: arthritis, CHF, COPD, DVT, diabetes, GERD, hyperlipidemia, hypertension, migraine, osteoporosis, renal disease, thyroid disease, other Psychiatric history: anxiety, depression - Past Surgical History Surgical History: appendectomy, hysterectomy, orthopedic, other, other, IVC filter - Social History Smoking Status: Former smoker Smokeless Tobacco Status: No Alcohol use: none Drug use: none - Family History Mother Living Status: Hx Family Cardiac Disorders: Yes Hx Family Cancer: Yes Hx Family Endocrine Disorder: Yes (DIABETES MELLITUS.) Medications and Allergies Cyclobenzaprine [Flexeril] 10 mg PO TID 09/12/14 [History] Docusate [Colace] 100 mg PO TID 09/12/14 [History] Doxepin [Sinequan] 50 mg PO HS 09/12/14 [History] Gabapentin [Neurontin] 300 mg PO TID 09/12/14 [History] Insulin ASPART [NovoLOG] 34 unit SQ QID 09/12/14 [History] Insulin Glargine,Hum.rec.anlog [Lantus Solostar] 75 unit SQ BID 09/12/14 [ History] Meclizine [Antivert] 25 mg PO TID 09/12/14 [History] Allopurinol [Zyloprim 100 MG] 100 mg PO DAILY 03/22/15 [History] DiphenhydraMINE [Benadryl] 25 mg PO TID 03/22/15 [History] Exenatide Microspheres [Bydureon Pen] 2 mg SQ MO 03/22/15 [History] Lidocaine Patch [Lidoderm 5% patch] 1 - 3 patch TP DAILY 03/22/15 [History] Nitroglycerin [Nitrostat] 0.4 mg SL Q5M PRN 03/22/15 [History] Promethazine [Phenergan] 25 mg PO TID 03/22/15 [History] clonazePAM [Klonopin] 1 mg PO HS 03/22/15 [History] Metoprolol XL (24 HR) Succ [Toprol Xl] 25 mg PO DAILY 07/31/15 [History] Warfarin [Coumadin] 4 mg PO Q48H 07/31/15 [History] Warfarin [Coumadin] 5 mg PO Q48H 07/31/15 [History] Furosemide [Lasix] 20 mg PO 1800,2330 03/02/16 [History] Furosemide [Lasix] 40 mg PO QAM 03/02/16 [History] Albuterol Neb [AccuNeb] 1.25 mg IH QID PRN 05/06/16 [History] Ammonium Lactate [Lac-Hydrin Five] 1 appl TP TID 05/06/16 [History] Levothyroxine [Synthroid] 250 mcg PO QAM 05/06/16 [History] Nystatin POWDER [Nystop] 1 appl TP QID 05/06/16 [History] Petrolatum,White [Aloe [place]] 1 appl TP BID 05/06/16 [History] Rosuvastatin [Crestor] 20 mg PO HS 05/06/16 [History] Acetaminophen [Tylenol] 650 mg PO Q4-6H 11/10/16 [History] Omeprazole [PriLOSEC] 40 mg PO DAILY 11/10/16 [History] Isosorbide MONOnitrate (24 HR) [Imdur] 60 mg PO QPM #30 tab.er.24h 11/11/16 [Rx] Potassium Chloride [Klor-Con 10] 10 meq PO BID 11/11/16 [History] 3 Allergy/AdvReac Type Severity Reaction Status Date / Time aspirin Allergy Hives Verified 05/16/16 01:37 cephalexin [From Keflex] Allergy Difficulty Verified 05/16/16 01:37 Breathing codeine Allergy Hypertensio Verified 05/16/16 01:37 n Cortisone Allergy See Verified 05/16/16 01:37 Comments hydrocortisone Allergy Hypertensio Verified 05/16/16 01:37 n ibuprofen Allergy Hives Verified 05/16/16 01:37 Iodinated Contrast- Oral and Allergy See Verified 05/16/16 01:37 IV Dye Comments [Iodinated Contrast Media - IV Dye] lidocaine [From Xylocaine] Allergy See Verified 05/16/16 01:37 Comments loratadine [From Claritin] Allergy Hives Verified 05/16/16 01:37 methylprednisolone Allergy Hypertensio Verified 05/16/16 01:37 [From Solu-Medrol] n Penicillins Allergy See Verified 05/16/16 01:37 Comments prednisone Allergy Hypertensio Verified 05/16/16 01:37 n Procaine [From Novocain] Allergy See Verified 05/16/16 01:37 Comments propoxyphene [From Darvon] Allergy See Verified 05/16/16 01:37 Comments pseudoephedrine Allergy Hives Verified 05/16/16 01:37 [From Sudafed] ropinirole [From Requip] Allergy See Verified 05/16/16 01:37 Comments tramadol AdvReac See Verified 05/20/16 15:19 Comments All Systems Review: A 10-system review of systems was performed and is negative for pertinent findings except as documented above in the HPI. Exam Vital Signs, Last 4 Hours Temp Pulse Resp BP Pulse Ox 11/24/16 12:12 97.4 F L 99 16 177/90 99 11/24/16 10:21 16 95 11/24/16 09:05 150/77 General: Present: Conversant, No Apparent Distress, Well developed, Well nourished, Other (Markedly obese) HEENT: Present: Atraumatic, Normocephaly, Trachea midline Neck: Absent: JVD, Lymphadenopathy, Left Carotid bruit, Right Carotid bruit, Midline deformity, Tracheal deviation, Thyromegaly Cardiac: Present: Reg Rate and Rhythm, Normal S1 and S2, No Murmur Lungs: Present: Normal Breath Sounds, No Wheeze, Rales, Rhonchi Neuro: Present: Alert and responsive, No focal deficits noted, Other (Decreased right central vision) Abdomen: Present: Soft Skin: Present: No rashes noted on visualized skin. Absent: Wound/ulcer(s) Consult Discharge Plan - Plan Referrals: Mauro Dockery MD [Primary Care Provider] -
--- NOTE | 2016-11-24 14:18 | Internal Med Progress Note ---
Date of Encounter: 11/24/16 Time of Encounter: 13:50 - Assessment and plan (1) Monocular visual disturbance Current Visit: Yes Status: Acute Assessment and plan: Patient was sent to the emergency department from primary care provider office with complaint of vision loss to right eye for 2 days prior to admission. Differentials include temporal arteritis versus retinal artery occlusion. Patient reported minimal central vision, no peripheral vision on arrival, however, today she has return of peripheral vision. She reports improving central vision today, as well. CTA head and neck completed. Pt refused MRI. CTA showed no evidence of intracranial hemorrhage or mass effect, there is poor visualization of proximal right cervical vertebral artery, this may be due to occlusion or artifact. 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 Otherwise, unremarkable CTA of the head. Pt was seen by Dr. Dobbins this a.m. He feels that pt has proliferative diabetic retinopathy in both eyes and possible centrl retinal vein occlusion in both eyes. This coiuld be a complication of diabetes and HTN, or secondary to a hypercoaguable state. Pt is on Warfarin. He recommends that patient see a retinal specialist in [place] after discharge. Patient is tender to palpation on right confucianism. She also complains of jaw claudication and headache on that side as well. Patient also has up to 79% carotid stenosis on the right as well. These findings are suggestive of both vascular occlusion as well as temporal arteritis. Patient has been started on high-dose methylprednisone, 1000 mg IV daily for 3 days. Continue to monitor patient's condition. Patient will need close monitoring for Accu-Cheks. Vascular and ophthalmology on board. I appreciate their recommendations and consultations. (2) Diabetes Current Visit: Yes Status: Chronic Assessment and plan: A1c is 6.4. Continue Accu-Cheks, sliding scale insulin, diabetic diet. Blood sugars are elevated due to high-dose steroids. She is receiving basal insulin as well as nutrition coverage and sliding scale insulin. There seemed to have been a discrepancy with the orders not crossing over to the nurses, she was not receiving the nutrition coverage with her meals. This has been remedied and we will continue to monitor. Qualifiers: Diabetes mellitus type: type 2 Diabetes mellitus complication status: with circulatory complication Diabetes mellitus complication detail: with other circulatory complications Diabetes mellitus mcfp insulin use: with technician terminal and repeater use Qualified Code(s): E11.59 - Type 2 diabetes mellitus with other circulatory complications; Z79.4 - half-way (current) use of insulin; Z79.4 - half-way (current) use of insulin; Z79.4 - director long term care (current) use of insulin; Z79.4 - half-way (current) use of insulin (3) CKD (chronic kidney disease) Current Visit: Yes Status: Chronic Assessment and plan: Creatinine is 2.74, GFR is 22. GFR 18. Continue to monitor labs and vital signs and avoid nephrotoxins. We will start gentle IV hydration with 0.9 normal saline. Qualifiers: Chronic kidney disease stage: stage 3 (moderate) Qualified Code(s): N18.3 - Chronic kidney disease, stage 3 (moderate) (4) Morbid obesity with BMI of 60.0-69.9, adult Current Visit: Yes Status: Chronic Assessment and plan: Chronic. Lifestyle changes. (5) Temporal arteritis Current Visit: Yes Status: Suspected Assessment and plan: Suspected. Patient reports right-sided headache, tenderness to palpation to right confucianism, vision loss in right eye, right jaw claudication. Treating patient with 1000 mg of methylprednisone IV daily. Patient has been seen by Dr. Shukla, she has declined temporal artery biopsy. We will continue to monitor patient's condition and blood sugar. Patient reports some return of vision today, peripheral vision has returned. (6) DVT prophylaxis Current Visit: Yes Status: Acute Assessment and plan: Patient is on Coumadin. Pharmacy to dose. Monitor INR, therapeutic today at 2.0. (7) Diabetic retinopathy associated with type 2 diabetes mellitus, with macular edema, with mild nonproliferative retinopathy Current Visit: Yes Status: Acute Assessment and plan: Per Dr. Dobbins exam and note: Prominent intraretinal hemorrhages and microaneurysms were noted in the right and left eyes. There was a large hemorrhage along the inferotemporal vascular arcade in the right eye with an associated cotton-wool spot. Otherwise, the retinal periphery was unremarkable. There did appear to be probable macular edema in the right eye. The macula in the left eye appeared unremarkable other than the previously mentioned intraretinal hemorrhages and microaneurysms. Impression: prominent nonproliferative diabetic retinopathy in both eyes in the appearance of a possible central retinal vein occlusion in both eyes. This could be a complication of the patient's diabetes and hypertension and it could be secondary to a hypercoagulable state. Recommendation: Following discharge the patient should be referred to Kelli Chamorro D.O. at [facility] [address] [place] [address] [address] [place] [address] telephone number [phone] or [phone]. Please send a copy of this consultation to Dr. Chamorro's office when patient is discharged. Thank you. Labs ordered, will consult Hematology in the a.m. Qualifiers: Laterality: bilateral Qualified Code(s): E11.3213 - Type 2 diabetes mellitus with mild nonproliferative diabetic retinopathy with macular edema, bilateral - Time Spent With Patient less than 15 minutes - Subjective Interval history: Patient was seen and assessed at 1350 today. Patient reports that she feels like there is some improvement in her vision, states that peripheral vision has returned. On physical exam, patient is tender to palpation on right confucianism a reports left jaw claudication. She also reports chronic headaches. Required much encouragement to get patient to agree to CTA of head and neck again this a.m. Pt states that she does not want to have the temporal artery biopsy done, does not feel that it is necessary. - Constitutional Vitals: Temp Pulse Resp BP Pulse Ox 97.4 F L 99 16 177/90 99 11/24/16 12:12 11/24/16 12:12 11/24/16 12:12 11/24/16 12:12 11/24/16 12:12 General appearance: Present: cooperative, A&O X 3, morbidly obese, pleasant, no acute distress, answers questions appropriately - Head Head exam: Present: atraumatic, normal inspection, normocephalic - Eye Eye exam: Present: normal appearance, PERRL, conjuntiva pink, sclera anicteric. Absent: nystagmus - ENT ENT exam: Present: mucous membranes moist, normal exam, normal external ear exam - Neck Neck exam general surgery: Present: supple, trachea midline - Respiratory Respiratory exam: Present: CTAB. Absent: accessory muscle use, rales, rhonchi, wheezes - Cardiovascular Cardiovascular exam: Present: RRR, +S1, +S2. Absent: diastolic murmur, gallop, rubs, systolic murmur - GI/Abdominal GI/Abdominal exam: Present: normal bowel sounds, soft, no peritoneal signs. Absent: distended, hepatomegaly, tenderness - Extremities Exam Extremities exam: Present: normal capillary refill, normal inspection, pedal edema, warm, radial pulses palpable and symmetrical. Absent: calf tenderness, cyanotic, tenderness - Neurological Exam Neurological exam: Present: alert, oriented X3, no focal deficits. Absent: facial droop, speech deficit - Skin Skin exam: Present: dry, intact, normal color, warm. Absent: rash Internal Medicine: Result - Labs CBC & Chem 7: 11/24/16 06:17 11/24/16 06:17 Labs: Short CBC 11/24/16 Range/Units 06:17 WBC 5.9 (4.3-11.1) K/mcL Hgb 9.1 L (11.5-15.4) g/dL Hct 29.9 L (35.3-44.9) % Plt Count 248 (140-400) K/mcL Neutrophils # 5.1 (1.6-8.9) K/mcL BMP 11/24/16 06:17 Sodium 135 L Potassium 5.2 H D Chloride 99 Carbon Dioxide 24 BUN 54 H D Creatinine 2.74 H Glucose 453 H Calcium 8.9 - ABG Interpretation ABG results: PT/INR, D-dimer PT 21.7 Seconds (9.4-12.1) H 11/24/16 06:17 - Impressions Impressions Echocardiogram 11/23/16 23:59 Impressions: Technically suboptimal due to poor echocardiographic windows. Definity contrast utilized. Overall LV function appears grossly normal. EF 60-65% No significant valvular heart disease by Doppler criteria. There is no evidence of a PFO by color Doppler or saline contrast. Suggest ESTELITA if clinically indicated. Left Ventricular Wall Motion: Rest Echo Findings All wall segments showed normal motion. Findings: Study Quality * Technically sub-optimal due to poor echocardiographic windows. No subcostal images suitable for interpretation. ECG Findings * Normal sinus rhythm. Left Ventricle * LVEF 60-65%. * Grossly normal LV systolic function. Cannot exclude subtle wall motion abnormalities due to technical limitiations of study. * Definity echo contrast was used. Right Ventricle * Not well visualized. Grossly normal Left Atrium * Moderately dilated left atrium. Right Atrium * Normal right atrial size. Interatrial Septum * No evidence of PFO by color Doppler. * No evidence of PFO with agitated saline contrast. Aortic Valve * Aortic valve not well visualized. * No aortic regurgitation. * No aortic stenosis. Mitral Valve * Mild mitral annular calcification * Normal mitral valve structure. * No mitral regurgitation. Tricuspid Valve * Tricuspid valve not well visualized. * Trace tricuspid regurgitation. * Unable to estimate RVSP due to lack of TR jet. Pulmonic Valve * Pulmonic valve not well visualized. Aorta * Not well visualized Pericardium * There is no pericardial effusion present. IVC * The IVC is not well evaluated. Head CTA 11/24/16 07:30 IMPRESSION: No evidence of intracranial hemorrhage or mass effect. Poor visualization of the proximal right cervical vertebral artery, V1 and proximal V2 segments. This may be due to occlusion or artifact. The distal cervical right vertebral artery is diminutive in caliber. 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 Otherwise unremarkable CTA examination of the head. D/ / Pee Taveras MD / Pee Taveras MD Interpreting Provider: Pee Taveras MD Neck CTA 11/24/16 07:30 IMPRESSION: No evidence of intracranial hemorrhage or mass effect. Poor visualization of the proximal right cervical vertebral artery, V1 and proximal V2 segments. This may be due to occlusion or artifact. The distal cervical right vertebral artery is diminutive in caliber. 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 Otherwise unremarkable CTA examination of the head. D/ / Pee Taveras MD / Pee Taveras MD Interpreting Provider: Pee Taveras MD Consult Discharge Plan - Plan Referrals: Mauro Dockery MD [Primary Care Provider] -
[2016-11-24] MEDS ORDERED: D5% in Water 1,000 ML IVC PRN (17:20)
[2016-11-24] MEDS ORDERED: *HR* Dextrose 50 % in Water (Syg) 50 ML SYRINGE IVP PRN (17:20)
[2016-11-24] MEDS ORDERED: Dextrose Gel 15 GM PO PRN ×2 (17:20)
[2016-11-24] MEDS ORDERED: *HR* Warfarin 4 MG TABLET PO SCH (18:00)
[2016-11-24] MEDS: Isosorbide MONOnitrate (24 HR) 30 MG TAB.ER.24H PO SCH (18:27)
[2016-11-24] MEDS: 0.9 % Sodium Chloride 1,000 ML IVC SCH (18:27)
[2016-11-24] MEDS: clonazePAM 1 MG TABLET PO SCH (21:45)
[2016-11-25] MEDS: methylPREDNISolone 250 MG in 0.9 % Sodium Chloride 50 ML IVPB SCH ×5 (00:58→22:47)
[2016-11-25] MEDS ORDERED: Insulin LISPRO 300 UNITS/3 ML VIAL SQ ONE (03:45)
[2016-11-25] MEDS: Acetaminophen 325 MG TABLET PO PRN (03:46)
[2016-11-25 03:47] LABS: Basophils % 0.1 %; Hematocrit 28.7 % (35.3-44.9); Immature Granulocytes % 1.3 % (0-4); Lymphocytes # 0.6 K/mcL (0.6-4.6); Lymphocytes % 8.1 %; Mean Corpuscular HGB Conc 31.4 g/dL (31.6-35.5); Mean Corpuscular Hemoglobin 29.1 pg (28.0-33.3); Mean Corpuscular Volume 92.9 fL (83.0-100.0); Mean Platelet Volume 10.3 fL (9.4-12.4); Monocytes # 0.2 K/mcL (0.0-1.3); Monocytes % 1.9 %; Platelet Count 259 K/mcL (140-400); Red Blood Count 3.09 M/mcL (3.82-4.97); Red Cell Distribution Width 16.6 % (11.5-14.5); Segmented Neutrophils % 88.6 %
[2016-11-25 04:00] LABS: Calcium 8.5 mg/dL (8.6-10.8); Potassium 5.1 mEq/L (3.5-4.5)
[2016-11-25] MEDS: Ipratropium/Albuterol Neb 3 ML IH SCH ×4 (04:17→22:57)
[2016-11-25 04:35] LABS: INR 2.5; Prothrombin Time 26.9 Seconds (9.4-12.1)
[2016-11-25] MEDS: 0.9 % Sodium Chloride 1,000 ML IVC SCH (08:47)
[2016-11-25] MEDS: Metoprolol XL (24 HR) Succ 25 MG TAB.ER.24H PO SCH (08:48)
[2016-11-25] MEDS: Gabapentin 300 MG CAPSULE PO SCH ×3 (08:48→20:04)
[2016-11-25] MEDS: Insulin LISPRO 300 UNITS/3 ML VIAL SQ SCH ×7 (08:49→20:48)
[2016-11-25] MEDS: Furosemide 40 MG TABLET PO SCH (08:49)
[2016-11-25] MEDS: Nystatin POWDER 30 GM BOTTLE TP SCH ×4 (08:50→20:08)
[2016-11-25] MEDS: Insulin DETEMIR 100 UNIT/ML X5UNITS SQ SCH ×2 (10:45→20:10)
[2016-11-25] MEDS ORDERED: *HR* Warfarin 2 MG TABLET PO ONE ×2 (13:13→18:00)
[2016-11-25] MEDS: Furosemide 20 MG TABLET PO SCH ×2 (16:31→20:10)
[2016-11-25] MEDS: Isosorbide MONOnitrate (24 HR) 30 MG TAB.ER.24H PO SCH (17:27)
--- NOTE | 2016-11-25 17:52 | Internal Med Progress Note ---
Date of Encounter: 11/25/16 Time of Encounter: 14:15 - Assessment and plan (1) Monocular visual disturbance Current Visit: Yes Status: Acute Assessment and plan: Patient was sent to the emergency department from primary care provider office with complaint of vision loss to right eye for 2 days prior to admission. Differentials include temporal arteritis versus retinal artery occlusion. Patient reported minimal central vision, no peripheral vision on arrival, however, today she has return of peripheral vision. She reports improving central vision today, as well. CTA head and neck completed. Pt refused MRI. CTA showed no evidence of intracranial hemorrhage or mass effect, there is poor visualization of proximal right cervical vertebral artery, this may be due to occlusion or artifact. 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 Otherwise, unremarkable CTA of the head. Pt was seen by Dr. Dobbins. He feels that pt has proliferative diabetic retinopathy in both eyes and possible centrl retinal vein occlusion in both eyes. This could be a complication of diabetes and HTN, or secondary to a hypercoaguable state. Pt is on Warfarin. He recommends that patient see a retinal specialist in [place] after discharge. Patient is tender to palpation on right alevism, improved since admission.. She also complains of jaw claudication and headache on that side as well, also improved. Patient also has up to 79% carotid stenosis on the right as well. These findings are suggestive of both vascular occlusion as well as temporal arteritis. Patient has been started on high-dose methylprednisone, 1000 mg IV daily for 3 days. Continue to monitor patient's condition. Patient will need close monitoring for Accu-Cheks and blood glucose control. Vascular and ophthalmology on board. I appreciate their recommendations and consultations. (2) Diabetes Current Visit: Yes Status: Chronic Assessment and plan: A1c is 6.4. Continue Accu-Cheks, sliding scale insulin, diabetic diet. Blood sugars are elevated due to high-dose steroids. She is receiving basal insulin as well as nutrition coverage and sliding scale insulin. With the addition of insulin with meals, blood sugar has been under better control. 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 We will start gentle IV hydration with 0.9 normal saline and monitor for fluid balance. Qualifiers: Chronic kidney disease stage: stage 3 (moderate) Qualified Code(s): N18.3 - Chronic kidney disease, stage 3 (moderate) (4) Morbid obesity with BMI of 60.0-69.9, adult Current Visit: Yes Status: Chronic Assessment and plan: Chronic. Lifestyle changes. (5) Temporal arteritis Current Visit: Yes Status: Suspected Assessment and plan: Suspected. Patient reports right-sided headache, tenderness to palpation to right alevism, vision loss in right eye, right jaw claudication. Treating patient with 1000 mg of methylprednisone IV daily. Patient has been seen by Dr. Shukla, she has declined temporal artery biopsy. We will continue to monitor patient's condition and blood sugar. Patient reports great improvement with vision today, peripheral vision has returned. Patient states that she just sees black spots now which is an improvement over central vision loss on admission. She reports even better vision when she is wearing her glasses. Continue to closely monitor Accu-Cheks and blood glucose. Patient will need to see a retinal specialist after discharge. Treat with tapering dose of steroids after discharge. Last dose of steroids IV should be Friday evening. (6) DVT prophylaxis Current Visit: Yes Status: Acute Assessment and plan: Patient is on Coumadin. Pharmacy to dose. Monitor INR, therapeutic today at 2.0. (7) Diabetic retinopathy associated with type 2 diabetes mellitus, with macular edema, with mild nonproliferative retinopathy Current Visit: Yes Status: Acute Assessment and plan: Per Dr. Dobbins exam and note: Prominent intraretinal hemorrhages and microaneurysms were noted in the right and left eyes. There was a large hemorrhage along the inferotemporal vascular arcade in the right eye with an associated cotton-wool spot. Otherwise, the retinal periphery was unremarkable. There did appear to be probable macular edema in the right eye. The macula in the left eye appeared unremarkable other than the previously mentioned intraretinal hemorrhages and microaneurysms. Impression: prominent nonproliferative diabetic retinopathy in both eyes in the appearance of a possible central retinal vein occlusion in both eyes. This could be a complication of the patient's diabetes and hypertension and it could be secondary to a hypercoagulable state. Recommendation: Following discharge the patient should be referred to Kelli Chamorro D.O. at [facility] [address] [place] [address] [address] [place] [address] telephone number [phone] or [phone]. Please send a copy of this consultation to Dr. Chamorro's office when patient is discharged. Thank you. Oncology consulted. Qualifiers: Laterality: bilateral Qualified Code(s): E11.3213 - Type 2 diabetes mellitus with mild nonproliferative diabetic retinopathy with macular edema, bilateral - Time Spent With Patient less than 15 minutes - Subjective Interval history: Patient was seen and assessed at 1415 today. Patient reports that patient has significantly improved, states that peripheral vision remains and that she only has black spots in her vision now. She says that when she wears her glasses is much better.. On physical exam, patient remains only mildly tender to right alevism. She reports that headaches have lessened. - Constitutional Vitals: Temp Pulse Resp BP Pulse Ox 98.3 F 82 18 146/77 93 11/25/16 14:59 11/25/16 14:59 11/25/16 15:56 11/25/16 14:59 11/25/16 15:56 General appearance: Present: cooperative, A&O X 3, morbidly obese, pleasant, no acute distress, answers questions appropriately - Head Head exam: Present: atraumatic, normal inspection, normocephalic - Expanded Head Exam Head exam expanded: Present: tenderness of temporal artery - Eye Eye exam: Present: normal appearance, conjuntiva pink, sclera anicteric - ENT ENT exam: Present: mucous membranes moist, normal exam - Neck Neck exam general surgery: Present: supple, trachea midline. Absent: lymphadenopathy - Respiratory Respiratory exam: Present: CTAB. Absent: accessory muscle use, chest wall tenderness, rales, rhonchi, wheezes - Cardiovascular Cardiovascular exam: Present: RRR, +S1, +S2. Absent: diastolic murmur, gallop, rubs, systolic murmur - GI/Abdominal GI/Abdominal exam: Present: normal bowel sounds, soft, no peritoneal signs. Absent: distended, tenderness - Extremities Exam Extremities exam: Present: pedal edema, warm, radial pulses palpable and symmetrical. Absent: calf tenderness, cyanotic, tenderness - Neurological Exam Neurological exam: Present: alert, oriented X3, no focal deficits. Absent: facial droop, speech deficit - Skin Skin exam: Present: dry, intact, normal color, warm. Absent: rash Internal Medicine: Result - Labs CBC & Chem 7: 11/25/16 03:39 11/25/16 03:39 Labs: Short CBC 11/25/16 Range/Units 03:39 WBC 7.9 (4.3-11.1) K/mcL Hgb 9.0 L (11.5-15.4) g/dL Hct 28.7 L (35.3-44.9) % Plt Count 259 (140-400) K/mcL Neutrophils # 7.0 (1.6-8.9) K/mcL BMP 11/25/16 03:39 Sodium 135 L Potassium 5.1 H Chloride 99 Carbon Dioxide 24 BUN 75 H D Creatinine 3.16 H Glucose 393 H Calcium 8.5 L - ABG Interpretation ABG results: PT/INR, D-dimer PT 26.9 Seconds (9.4-12.1) H 11/25/16 03:39 - VTE Documentation of Mechanical Device: Venous foot pump, device Consult Discharge Plan - Plan Referrals: Mauro Dockery MD [Primary Care Provider] -
[2016-11-25] MEDS: clonazePAM 1 MG TABLET PO SCH (20:04)
[2016-11-25] MEDS ORDERED: (Exenatide Microspheres [Bydureon Pen] 2 MG) SQ SCH (23:48)
[2016-11-26 04:59] LABS: Hemoglobin 8.9 g/dL (11.5-15.4); Immature Granulocytes % 1.8 % (0-4); Lymphocytes # 0.7 K/mcL (0.6-4.6); Lymphocytes % 10.2 %; Mean Corpuscular HGB Conc 30.7 g/dL (31.6-35.5); Mean Corpuscular Hemoglobin 28.9 pg (28.0-33.3); Mean Corpuscular Volume 94.2 fL (83.0-100.0); Mean Platelet Volume 10.8 fL (9.4-12.4); Monocytes # 0.1 K/mcL (0.0-1.3); Monocytes % 1.6 %; Neutrophils # 5.8 K/mcL (1.6-8.9); Platelet Count 222 K/mcL (140-400); Red Blood Count 3.08 M/mcL (3.82-4.97); Red Cell Distribution Width 16.8 % (11.5-14.5); Segmented Neutrophils % 86.4 %
[2016-11-26] MEDS: Ipratropium/Albuterol Neb 3 ML IH SCH ×4 (05:03→23:12)
[2016-11-26 05:10] LABS: INR 2.9
[2016-11-26 05:14] LABS: Calcium 7.8 mg/dL (8.6-10.8); Potassium 5.1 mEq/L (3.5-4.5)
[2016-11-26] MEDS: 0.9 % Sodium Chloride 1,000 ML IVC SCH (05:19)
[2016-11-26] MEDS: methylPREDNISolone 250 MG in 0.9 % Sodium Chloride 50 ML IVPB SCH ×4 (06:07→22:20)
[2016-11-26] MEDS ORDERED: 0.9 % Sodium Chloride 500 ML IVC ONE (08:04)
[2016-11-26] MEDS: Insulin LISPRO 300 UNITS/3 ML VIAL SQ SCH ×7 (09:18→22:05)
[2016-11-26] MEDS: Gabapentin 300 MG CAPSULE PO SCH (09:19)
[2016-11-26] MEDS: Metoprolol XL (24 HR) Succ 25 MG TAB.ER.24H PO SCH (09:20)
[2016-11-26] MEDS: Nystatin POWDER 30 GM BOTTLE TP SCH ×4 (09:21→22:07)
[2016-11-26] MEDS: Insulin DETEMIR 100 UNIT/ML X5UNITS SQ SCH ×2 (09:29→22:10)
--- NOTE | 2016-11-26 12:10 | Internal Med Progress Note ---
Date of Encounter: 11/26/16 Time of Encounter: 13:32 - Assessment and plan (1) Diabetes Current Visit: Yes Status: Chronic Assessment and plan: Uncontrolled with hyperglycemia secondary to use of steroids Increase levemir, add prandial insulin, continue correctional dose, monitor FS ACHS ADA diet Qualifiers: Diabetes mellitus type: type 2 Diabetes mellitus complication status: with circulatory complication Diabetes mellitus complication detail: with other circulatory complications Diabetes mellitus longterm insulin use: with superintendent terminal use Qualified Code(s): E11.59 - Type 2 diabetes mellitus with other circulatory complications; Z79.4 - half-way (current) use of insulin; Z79.4 - half-way (current) use of insulin; Z79.4 - half-way (current) use of insulin; Z79.4 - terminal manager (current) use of insulin (2) CKD (chronic kidney disease) Current Visit: Yes Status: Chronic Assessment and plan: Continue to monitor labs and vital signs and avoid nephrotoxins. We will start gentle IV hydration with 0.9 normal saline , give additional bolus Hold lasix Monitor renal function, avoid nephrotoxins Qualifiers: Chronic kidney disease stage: stage 3 (moderate) Qualified Code(s): N18.3 - Chronic kidney disease, stage 3 (moderate) (3) Lower extremity edema Current Visit: Yes Status: Chronic Assessment and plan: Chronic, stable Hold lasix (4) Morbid obesity Current Visit: Yes Status: Chronic Assessment and plan: Lifestyle changes (5) Hypothyroidism Current Visit: Yes Status: Chronic Assessment and plan: Resume home meds Qualifiers: Hypothyroidism type: unspecified Qualified Code(s): E03.9 - Hypothyroidism , unspecified (6) Hyperlipidemia Current Visit: Yes Status: Chronic Assessment and plan: Continue home meds Qualifiers: Hyperlipidemia type: unspecified Qualified Code(s): E78.5 - Hyperlipidemia , unspecified (7) Rbiqm-sb-kcedrgg kidney injury Current Visit: Yes Status: Acute Assessment and plan: As in CKD Progressive worsening of renal function Monitor renal function Qualifiers: Acute renal failure type: unspecified Chronic kidney disease stage: unspecified stage Qualified Code(s): N17.9 - Acute kidney failure, unspecified ; N18.9 - Chronic kidney disease, unspecified; N18.9 - Chronic kidney disease, unspecified (8) Hypertension Current Visit: Yes Status: Chronic Assessment and plan: Controlled, continue current meds Qualifiers: Hypertension type: essential hypertension Qualified Code(s): I10 - Essential (primary) hypertension (9) History of DVT (deep vein thrombosis) Current Visit: Yes Status: Chronic Assessment and plan: INR therapeutic Continue current dose of coumadin, monitor INR (10) RUPERT (obstructive sleep apnea) Current Visit: Yes Status: Chronic Assessment and plan: Refused CPAP, continue O2 (11) Transient monocular blindness Current Visit: Yes Status: Acute Assessment and plan: As in temporal arteritis per ophth, patient also has retinal vein occlusion, she is on Coumadin for hs of DVTs Qualifiers: Laterality: right Qualified Code(s): H53.121 - Transient visual loss, right eye (12) Temporal arteritis Current Visit: Yes Status: Suspected Assessment and plan: Suspected. Patient reports right-sided headache, tenderness to palpation to right hinduism, vision loss in right eye, right jaw claudication. Treating patient with 1000 mg of methylprednisone IV daily. Patient has been seen by Dr. Shukla, she has declined temporal artery biopsy. We will continue to monitor patient's condition and blood sugar. Will begin po prednsione am - Subjective Interval history: Seen and evaluated at bedside No new complains Chart review reveals SUDHIR on CKD with progressive worsening of BUN/Cr, patient denies changes in volume of urine She is being managed for suspected temporal arteritis, retinal vein occlusion, She reports she has declined biopsy till review by copy messenger at [facility] RN/Sec to make appointment prior to discharge - Constitutional Vitals: Temp Pulse Resp BP Pulse Ox 97.6 F 92 18 158/74 98 11/26/16 11:55 11/26/16 11:55 11/26/16 11:55 11/26/16 11:55 11/26/16 11:55 General appearance: Present: cooperative, A&O X 3, morbidly obese, pleasant, no acute distress, answers questions appropriately - Head Head exam: Present: atraumatic, normocephalic - Eye Eye exam: Present: PERRL, conjuntiva pink, sclera anicteric Pupils: Present: PERRL - Neck Neck exam general surgery: Present: supple, trachea midline. Absent: lymphadenopathy - Respiratory Respiratory exam: Present: CTAB. Absent: accessory muscle use, rales, rhonchi, wheezes - Cardiovascular Cardiovascular exam: Present: RRR, +S1, +S2. Absent: diastolic murmur, gallop, rubs, systolic murmur - GI/Abdominal GI/Abdominal exam: Present: normal bowel sounds, soft, no peritoneal signs. Absent: distended, tenderness - Extremities Exam Extremities exam: Present: pedal edema (chronic non-piting edema, chronic venous stasis changes), warm, radial pulses palpable and symmetrical. Absent: calf tenderness, cyanotic - Neurological Exam Neurological exam: Present: alert, CN II-XII intact, oriented X3, no focal deficits. Absent: pronater drift, facial droop, speech deficit - Skin Skin exam: Present: dry Internal Medicine: Result - Labs CBC & Chem 7: 11/26/16 04:39 11/26/16 04:39 Labs: Short CBC 11/26/16 Range/Units 04:39 WBC 6.8 (4.3-11.1) K/mcL Hgb 8.9 L (11.5-15.4) g/dL Hct 29.0 L (35.3-44.9) % Plt Count 222 (140-400) K/mcL Neutrophils # 5.8 (1.6-8.9) K/mcL BMP 11/26/16 04:39 Sodium 136 Potassium 5.1 H Chloride 102 Carbon Dioxide 22 BUN 86 H Creatinine 3.23 H Glucose 298 H Calcium 7.8 L - ABG Interpretation ABG results: PT/INR, D-dimer PT 32.0 Seconds (9.4-12.1) H 11/26/16 04:39 - VTE Documentation of Mechanical Device: Venous foot pump, device Consult Discharge Plan - Plan Referrals: Mauro Dockery MD [Primary Care Provider] -
[2016-11-26] MEDS: Furosemide 20 MG TABLET PO SCH (16:44)
[2016-11-26] MEDS: Isosorbide MONOnitrate (24 HR) 30 MG TAB.ER.24H PO SCH (17:08)
[2016-11-26] MEDS: Gabapentin 100 MG CAPSULE PO SCH (22:04)
[2016-11-26] MEDS: clonazePAM 1 MG TABLET PO SCH (22:04)
[2016-11-26] MEDS: Acetaminophen 325 MG TABLET PO PRN (22:20)
[2016-11-27] MEDS: Ipratropium/Albuterol Neb 3 ML IH SCH ×2 (04:12→10:50)
[2016-11-27 05:23] LABS: Hematocrit 28.4 % (35.3-44.9); Hemoglobin 8.6 g/dL (11.5-15.4); Mean Corpuscular HGB Conc 30.3 g/dL (31.6-35.5); Mean Corpuscular Hemoglobin 28.4 pg (28.0-33.3); Mean Corpuscular Volume 93.7 fL (83.0-100.0); Mean Platelet Volume 11.2 fL (9.4-12.4); Platelet Count 216 K/mcL (140-400); Red Blood Count 3.03 M/mcL (3.82-4.97); Red Cell Distribution Width 16.7 % (11.5-14.5); Segmented Neutrophils % 85.8 %
[2016-11-27 05:24] LABS: Immature Granulocytes % 2.3 % (0-4); Lymphocytes # 0.5 K/mcL (0.6-4.6); Lymphocytes % 8.9 %; Monocytes # 0.2 K/mcL (0.0-1.3); Neutrophils # 4.9 K/mcL (1.6-8.9)
[2016-11-27 05:27] LABS: Prothrombin Time 32.6 Seconds (9.4-12.1)
[2016-11-27 05:30] LABS: Potassium 4.3 mEq/L (3.5-4.5)
[2016-11-27 05:31] LABS: Calcium 7.4 mg/dL (8.6-10.8)
[2016-11-27] MEDS: Insulin LISPRO 300 UNITS/3 ML VIAL SQ SCH ×6 (07:10→11:15)
[2016-11-27] MEDS: Gabapentin 300 MG CAPSULE PO SCH (07:12)
[2016-11-27] MEDS: Metoprolol XL (24 HR) Succ 25 MG TAB.ER.24H PO SCH (07:24)
[2016-11-27] MEDS: Gabapentin 100 MG CAPSULE PO SCH (07:24)
[2016-11-27] MEDS: Nystatin POWDER 30 GM BOTTLE TP SCH ×2 (07:26→11:15)
[2016-11-27] MEDS: Acetaminophen 325 MG TABLET PO PRN (07:29)
[2016-11-27] MEDS: Insulin DETEMIR 100 UNIT/ML X5UNITS SQ SCH (08:55)
[2016-11-27] MEDS ORDERED: predniSONE 20 MG TABLET PO SCH (09:00)
[2016-11-27 09:23] LABS: Antithrombin III, Activity 137 % (76-128)
[2016-11-27 11:11] VITALS: BP 123/84
--- NOTE | 2016-11-27 12:26 | Discharge Summary ---
Date of Encounter: 11/27/16 Time of Encounter: 12:25 - Discharge Diagnosis (1) Diabetes Priority: Secondary Status: Chronic Qualifiers: Diabetes mellitus type: type 2 Diabetes mellitus complication status: with circulatory complication Diabetes mellitus complication detail: with other circulatory complications Diabetes mellitus exterminator helper insulin use: with exterminator helper use Qualified Code(s): E11.59 - Type 2 diabetes mellitus with other circulatory complications; Z79.4 - FDC (current) use of insulin; Z79.4 - FDC (current) use of insulin; Z79.4 - intermediate manager (current) use of insulin; Z79.4 - intermediate manager (current) use of insulin (2) CKD (chronic kidney disease) Priority: Secondary Status: Chronic Qualifiers: Chronic kidney disease stage: stage 3 (moderate) Qualified Code(s): N18.3 - Chronic kidney disease, stage 3 (moderate) (3) Lower extremity edema Priority: Secondary Status: Chronic (4) Morbid obesity Priority: Secondary Status: Chronic (5) Hypothyroidism Priority: Secondary Status: Chronic Qualifiers: Hypothyroidism type: unspecified Qualified Code(s): E03.9 - Hypothyroidism , unspecified (6) Hyperlipidemia Priority: Secondary Status: Chronic Qualifiers: Hyperlipidemia type: unspecified Qualified Code(s): E78.5 - Hyperlipidemia , unspecified (7) Rwqxr-cy-tykqthj kidney injury Priority: Primary Status: Acute Qualifiers: Acute renal failure type: unspecified Chronic kidney disease stage: unspecified stage Qualified Code(s): N17.9 - Acute kidney failure, unspecified ; N18.9 - Chronic kidney disease, unspecified; N18.9 - Chronic kidney disease, unspecified (8) Hypertension Priority: Secondary Status: Chronic Qualifiers: Hypertension type: essential hypertension Qualified Code(s): I10 - Essential (primary) hypertension (9) History of DVT (deep vein thrombosis) Priority: Secondary Status: Chronic (10) RUPERT (obstructive sleep apnea) Priority: Secondary Status: Chronic (11) Transient monocular blindness Priority: Primary Status: Resolved Qualifiers: Laterality: right Qualified Code(s): H53.121 - Transient visual loss, right eye (12) Temporal arteritis Priority: Primary Status: Suspected (13) CHF (congestive heart failure) Priority: Secondary Status: Chronic Qualifiers: Congestive heart failure type: diastolic Congestive heart failure chronicity: chronic Qualified Code(s): I50.32 - Chronic diastolic (congestive ) heart failure - Discharge Medications Prescriptions: Gabapentin [Neurontin] 100 mg PO TID #90 capsule Insulin DETEMIR [Levemir] 100 unit SQ BID #2 vial Insulin LISPRO [HumaLOG] 18 units SQ TIDWM #2 vial predniSONE [PredniSONE] 40 mg PO DAILY #10 tablet Syringe and Needle,Insulin,1Ml [Insulin Syringe] 1 each MC QID #160 disp.syrin Warfarin [Coumadin] 3 mg PO 1800 #5 tablet Home Medications: Cyclobenzaprine [Flexeril] 10 mg PO TID 09/12/14 [History] Docusate [Colace] 100 mg PO TID 09/12/14 [History] Doxepin [Sinequan] 50 mg PO HS 09/12/14 [History] Meclizine [Antivert] 25 mg PO TID 09/12/14 [History] Allopurinol [Zyloprim 100 MG] 100 mg PO DAILY 03/22/15 [History] DiphenhydraMINE [Benadryl] 25 mg PO TID 03/22/15 [History] Exenatide Microspheres [Bydureon Pen] 2 mg SQ MO 03/22/15 [History] Lidocaine Patch [Lidoderm 5% patch] 1 - 3 patch TP DAILY 03/22/15 [History] Nitroglycerin [Nitrostat] 0.4 mg SL Q5M PRN 03/22/15 [History] Promethazine [Phenergan] 25 mg PO TID 03/22/15 [History] clonazePAM [Klonopin] 1 mg PO HS 03/22/15 [History] Metoprolol XL (24 HR) Succ [Toprol Xl] 25 mg PO DAILY 07/31/15 [History] Furosemide [Lasix] 40 mg PO QAM 03/02/16 [History] Albuterol Neb [AccuNeb] 1.25 mg IH QID PRN 05/06/16 [History] Ammonium Lactate [Lac-Hydrin Five] 1 appl TP TID 05/06/16 [History] Levothyroxine [Synthroid] 250 mcg PO QAM 05/06/16 [History] Nystatin POWDER [Nystop] 1 appl TP QID 05/06/16 [History] Petrolatum,White [Aloe [place]] 1 appl TP BID 05/06/16 [History] Rosuvastatin [Crestor] 20 mg PO HS 05/06/16 [History] Acetaminophen [Tylenol] 650 mg PO Q4-6H 11/10/16 [History] Omeprazole [PriLOSEC] 40 mg PO DAILY 11/10/16 [History] Isosorbide MONOnitrate (24 HR) [Imdur] 60 mg PO QPM #30 tab.er.24h 11/11/16 [Rx] Potassium Chloride [Klor-Con 10] 10 meq PO BID 11/11/16 [History] Docusate [Colace] 100 mg PO BID PRN capsule 11/27/16 [Rx] Gabapentin [Neurontin] 100 mg PO TID #90 capsule 11/27/16 [Rx] Insulin DETEMIR [Levemir] 100 unit SQ BID #2 vial 11/27/16 [Rx] Insulin LISPRO [HumaLOG] 18 units SQ TIDWM #2 vial 11/27/16 [Rx] Syringe and Needle,Insulin,1Ml [Insulin Syringe] 1 each MC QID #160 disp.syrin 11/27/16 [Rx] Warfarin [Coumadin] 3 mg PO 1800 #5 tablet 11/27/16 [Rx] predniSONE [PredniSONE] 40 mg PO DAILY #10 tablet 11/27/16 [Rx] Allergies/Adverse Reactions: 3 Allergy/AdvReac Type Severity Reaction Status Date / Time aspirin Allergy Hives Verified 05/16/16 01:37 cephalexin [From Keflex] Allergy Difficulty Verified 05/16/16 01:37 Breathing codeine Allergy Hypertensio Verified 05/16/16 01:37 n Cortisone Allergy See Verified 05/16/16 01:37 Comments hydrocortisone Allergy Hypertensio Verified 05/16/16 01:37 n ibuprofen Allergy Hives Verified 05/16/16 01:37 Iodinated Contrast- Oral and Allergy See Verified 05/16/16 01:37 IV Dye Comments [Iodinated Contrast Media - IV Dye] lidocaine [From Xylocaine] Allergy See Verified 05/16/16 01:37 Comments loratadine [From Claritin] Allergy Hives Verified 05/16/16 01:37 methylprednisolone Allergy Hypertensio Verified 05/16/16 01:37 [From Solu-Medrol] n Penicillins Allergy See Verified 05/16/16 01:37 Comments prednisone Allergy Hypertensio Verified 05/16/16 01:37 n Procaine [From Novocain] Allergy See Verified 05/16/16 01:37 Comments propoxyphene [From Darvon] Allergy See Verified 05/16/16 01:37 Comments pseudoephedrine Allergy Hives Verified 05/16/16 01:37 [From Sudafed] ropinirole [From Requip] Allergy See Verified 05/16/16 01:37 Comments tramadol AdvReac See Verified 05/20/16 15:19 Comments Date of admission: 11/23/16 00:08 Primary care physician: Mauro Dockery MD Consults: 11/23/16 14:39 Consult to Vascular Surgery [CONS] Routine Consulting Provider: [facility] [place] Reason for Consult: vision loss L eye, L carotid stenosis. pt is being seen by neurology, as well. Time Notified: 14:40 Call Completed: Yes 11/24/16 10:34 Consult to Physician [CONS] Routine Consulting Provider: Larry Dobbins Reason for Consult: R vision loss Time Notified: 10:34 Call Completed: Yes Discharging clinician: Ankur Franco Anticipated date of discharge: 11/27/16 - Patient Status Disposition: Home Health Service Condition: Good Functional capacity at discharge: uses cane/walker Overall status at discharge: patient is back to baseline - Discharge Instructions Follow Up With: Karyn Chamorro DO [Non-Partnered Physician] - 11/29/16 2:10 pm Mauro Dockery MD [Primary Care Provider] - 12/03/16 9:45 am Additional Instructions: CHECK INR WITHIN NEXT TWO DAYS YOUR COUMADIN AND INSULIN HAVE BEEN ADJUSTED YOU WERE EDUCATED ON FOLLOW UP WITH THE [facility] INSTRUCTOR AT [facility] FOLLOW UP WITH YOUR PCP - Diet and Activity Activity: resume usual activities as tolerated Diet: diabetic diet, low fat, low cholesterol, low salt diet Interval History: See below Hospital course: Ms. Mars is a 61 year old female with Morbid Obesity, HTN, HLD, RUPERT refusing CPAP, DM, CAD, CHFpEF (EF 55%), CKD III Patient was sent to the emergency department from primary care provider office with complaint of vision loss to right eye for 2 days prior to admission. Differentials include temporal arteritis versus retinal artery occlusion. Patient reported minimal central vision, no peripheral vision on arrival CTA head and neck completed. Pt refused MRI. CTA showed no evidence of intracranial hemorrhage or mass effect, there is poor visualization of proximal right cervical vertebral artery, this may be due to occlusion or artifact. 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 Otherwise, unremarkable CTA of the head. ESR was elevated to >130. Blood pressure was elevated with diagnosis of malignant hypertension on arrival, this has since resolved. INR was subtheraeutic at 1.8 Patient was also tender to palpation on right congregational. She also complains of jaw claudication and headache on that side as well. Patient also has up to 79% carotid stenosis on the right as well. These findings were suspicious for both vascular occlusion as well as temporal arteritis. Patient was seen by neurologist who recommended vascular review due to R carotid artery stenosis and risk of CVO/HUNT with patient's multiple co- morbidities. Pt was seen by tarring machine operator on 11/24/16- Dr. 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 This coiuld be a complication of diabetes and HTN, or secondary to a hypercoaguable state.He recommended upon discharge, the patient should be referred to Kelli Chamorro D.O. at [facility] [address] [place] [address] [place] [address] telephone number [phone] or .-Appropriate appointment made for Wednesday 11/29. Patient informed. The patient was started on high dose pulse steroids and she made significant improvement in her vision, she decelined temporal artery biopsy by vascular surgery, she wants to consult with the tarring machine operator before agreeing to biopsy. She has made significant improvement in her vision and as at this morning, she is stable to be discharged home with services. She is discharged on 40mg daily of prednisone, to be tapered off by her PCP. Hospital stay was also complicated by hyperglycemia due to steroid use, her insulin has been increased and she is aware of the changes made in her medications She also developed SUDHIR on CKD during admission and this improved with holding her lasix and gentle IVF hydration, she has been restarted on half the dose of her home lasix, she is euvolemic at this time. INR today is 3.0, patient has been discharged on 3mg daily till INR check by PCP -She is very adamant her PCP checks and follows with her INR, she has a proper insight into her diagnoses Her other chronic medical conditions are stable She declined CPAP throughout this hospital stay Plan of care discussed, verbalized understanding - Time Spent with Patient Total time spent providing and/or coordinating discharge services: Greater than 30 minutes - Constitutional Vitals: Temp Pulse Resp BP Pulse Ox 98.2 F 83 16 123/84 95 11/27/16 11:04 11/27/16 11:04 11/27/16 11:04 11/27/16 11:04 11/27/16 11:04 General appearance: Present: cooperative, A&O X 3, morbidly obese, pleasant, no acute distress, answers questions appropriately - Head Head exam: Present: atraumatic, normocephalic - Eye Eye exam: Present: PERRL, conjuntiva pink, sclera anicteric Pupils: Present: PERRL - Neck Neck exam general surgery: Present: supple, trachea midline. Absent: lymphadenopathy - Respiratory Respiratory exam: Present: CTAB. Absent: accessory muscle use, rales, rhonchi, wheezes - Cardiovascular Cardiovascular exam: Present: RRR, +S1, +S2. Absent: diastolic murmur, gallop, rubs, systolic murmur - GI/Abdominal GI/Abdominal exam: Present: normal bowel sounds, soft, no peritoneal signs. Absent: distended, tenderness - Extremities Exam Extremities exam: Present: pedal edema (chronic non-piting edema, chronic venous stasis changes), warm, radial pulses palpable and symmetrical. Absent: calf tenderness, cyanotic - Neurological Exam Neurological exam: Present: alert, CN II-XII intact, oriented X3, no focal deficits. Absent: pronater drift, facial droop, speech deficit - Skin Skin exam: Present: dry - VTE Documentation of Mechanical Device: Venous foot pump, device
--- NOTE | 2016-11-27 12:38 | Physician Discharge Referral ---
Home Health/Hosp Referral Info Transfer to: Home Health Attending Provider: Dr. Franco Provider in Charge Post Discharge: PCP - Diagnosis (1) Diabetes Priority: Secondary Status: Chronic (2) CKD (chronic kidney disease) Priority: Secondary Status: Chronic (3) Lower extremity edema Priority: Secondary Status: Chronic (4) Morbid obesity Priority: Secondary Status: Chronic (5) Hypothyroidism Priority: Secondary Status: Chronic (6) Hyperlipidemia Priority: Secondary Status: Chronic (7) Mrtgc-kb-fnnqiyv kidney injury Priority: Primary Status: Acute (8) Hypertension Priority: Secondary Status: Chronic (9) History of DVT (deep vein thrombosis) Priority: Secondary Status: Chronic (10) RUPERT (obstructive sleep apnea) Priority: Secondary Status: Chronic (11) Transient monocular blindness Priority: Primary Status: Resolved (12) Temporal arteritis Priority: Primary Status: Suspected - Respiratory Orders Oxygen / L per min Smoking Cessation: Smoking cessation has been advised. For more information, call the [place] Tobacco Quit Line at 0-635-QIZO-NOW. - Diet/Nutrition Diet/Nutrition Orders: Renal, Cardiac, No Concentrated Sweets - Activity Activity Orders: Walker - Services Needed Following services are medically necessary services: Home Health Aide, Physical Therapy, Occupational Therapy - Transfer Medications Prescriptions: Gabapentin [Neurontin] 100 mg PO TID #90 capsule Insulin DETEMIR [Levemir] 100 unit SQ BID #2 vial Insulin LISPRO [HumaLOG] 18 units SQ TIDWM #2 vial predniSONE [PredniSONE] 40 mg PO DAILY #10 tablet Syringe and Needle,Insulin,1Ml [Insulin Syringe] 1 each MC QID #160 disp.syrin Warfarin [Coumadin] 3 mg PO 1800 #5 tablet Home Medications: Cyclobenzaprine [Flexeril] 10 mg PO TID 09/12/14 [History] Docusate [Colace] 100 mg PO TID 09/12/14 [History] Doxepin [Sinequan] 50 mg PO HS 09/12/14 [History] Meclizine [Antivert] 25 mg PO TID 09/12/14 [History] Allopurinol [Zyloprim 100 MG] 100 mg PO DAILY 03/22/15 [History] DiphenhydraMINE [Benadryl] 25 mg PO TID 03/22/15 [History] Exenatide Microspheres [Bydureon Pen] 2 mg SQ MO 03/22/15 [History] Lidocaine Patch [Lidoderm 5% patch] 1 - 3 patch TP DAILY 03/22/15 [History] Nitroglycerin [Nitrostat] 0.4 mg SL Q5M PRN 03/22/15 [History] Promethazine [Phenergan] 25 mg PO TID 03/22/15 [History] clonazePAM [Klonopin] 1 mg PO HS 03/22/15 [History] Metoprolol XL (24 HR) Succ [Toprol Xl] 25 mg PO DAILY 07/31/15 [History] Furosemide [Lasix] 40 mg PO QAM 03/02/16 [History] Albuterol Neb [AccuNeb] 1.25 mg IH QID PRN 05/06/16 [History] Ammonium Lactate [Lac-Hydrin Five] 1 appl TP TID 05/06/16 [History] Levothyroxine [Synthroid] 250 mcg PO QAM 05/06/16 [History] Nystatin POWDER [Nystop] 1 appl TP QID 05/06/16 [History] Petrolatum,White [Aloe [place]] 1 appl TP BID 05/06/16 [History] Rosuvastatin [Crestor] 20 mg PO HS 05/06/16 [History] Acetaminophen [Tylenol] 650 mg PO Q4-6H 11/10/16 [History] Omeprazole [PriLOSEC] 40 mg PO DAILY 11/10/16 [History] Isosorbide MONOnitrate (24 HR) [Imdur] 60 mg PO QPM #30 tab.er.24h 11/11/16 [Rx] Potassium Chloride [Klor-Con 10] 10 meq PO BID 11/11/16 [History] Docusate [Colace] 100 mg PO BID PRN capsule 11/27/16 [Rx] Gabapentin [Neurontin] 100 mg PO TID #90 capsule 11/27/16 [Rx] Insulin DETEMIR [Levemir] 100 unit SQ BID #2 vial 11/27/16 [Rx] Insulin LISPRO [HumaLOG] 18 units SQ TIDWM #2 vial 11/27/16 [Rx] Syringe and Needle,Insulin,1Ml [Insulin Syringe] 1 each MC QID #160 disp.syrin 11/27/16 [Rx] Warfarin [Coumadin] 3 mg PO 1800 #5 tablet 11/27/16 [Rx] predniSONE [PredniSONE] 40 mg PO DAILY #10 tablet 11/27/16 [Rx] Allergies/Adverse Reactions: 3 Allergy/AdvReac Type Severity Reaction Status Date / Time aspirin Allergy Hives Verified 05/16/16 01:37 cephalexin [From Keflex] Allergy Difficulty Verified 05/16/16 01:37 Breathing codeine Allergy Hypertensio Verified 05/16/16 01:37 n Cortisone Allergy See Verified 05/16/16 01:37 Comments hydrocortisone Allergy Hypertensio Verified 05/16/16 01:37 n ibuprofen Allergy Hives Verified 05/16/16 01:37 Iodinated Contrast- Oral and Allergy See Verified 05/16/16 01:37 IV Dye Comments [Iodinated Contrast Media - IV Dye] lidocaine [From Xylocaine] Allergy See Verified 05/16/16 01:37 Comments loratadine [From Claritin] Allergy Hives Verified 05/16/16 01:37 methylprednisolone Allergy Hypertensio Verified 05/16/16 01:37 [From Solu-Medrol] n Penicillins Allergy See Verified 05/16/16 01:37 Comments prednisone Allergy Hypertensio Verified 05/16/16 01:37 n Procaine [From Novocain] Allergy See Verified 05/16/16 01:37 Comments propoxyphene [From Darvon] Allergy See Verified 05/16/16 01:37 Comments pseudoephedrine Allergy Hives Verified 05/16/16 01:37 [From Sudafed] ropinirole [From Requip] Allergy See Verified 05/16/16 01:37 Comments tramadol AdvReac See Verified 05/20/16 15:19 Comments Certification: Further, I certify that my clinical findings support that this patient is homebound (i.e. absences from home require considerable and taxing effort and are for medical reasons or temple services or infrequently or short duration when for other reasons) because: Homebound Reason: Patient requires assistance of a person or device to safely leave home Attestation: My signature below is to certify that this patient is under my care and that I, or nurse practitioner, or a physician's service assistant working with me, has a face-to -face encounter with this patient.
[2016-11-27] MEDS ORDERED: *HR* Warfarin 3 MG TABLET PO ONE (18:00)
[2016-11-28 07:51] LABS: Protein S Antigen, Total 160 % (63-126); Protein S, Free 92 % (55-123); Protein S, Functional 59 % (57-131)
[2016-11-28 23:55] LABS: Prothrombin G20210A Specimen WHOLE BLOOD
[2016-11-29 07:09] LABS: Prothrombin G20210A Mut Result NEGATIVE
[2016-11-30 12:14] LABS: FACV Specimen WHOLE BLOOD
[2016-12-02 07:41] LABS: Fac V Leiden R506Q Mut Result NEGATIVE
== END 2016-11-27 14:26 | disposition home health service (06) | DRG 346 ==
LOC: 3BNU 14:30 → EMEROO 14:30 → 3BNU 22:30 → SUATTDRO 11-23 00:08
PROVIDERS: ADMIT Internal Medicine; ATTEND Internal Medicine

== ENCOUNTER 2017-01-07 14:44 | Observation (INO) ==
[2017-01-07] MEDS ORDERED: Ipratropium/Albuterol Neb 3 ML IH ONE (15:48)
[2017-01-07] MEDS ORDERED: 0.9 % Sodium Chloride 1,000 ML IVC ONE (15:55)
[2017-01-07] MEDS ORDERED: 0.9 % Sodium Chloride 500 ML IVC ONE (15:56)
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
[2017-01-07 16:15] LABS: Hemoglobin 8.2 g/dL (11.5-15.4)
[2017-01-07 16:18] LABS: INR 1.4; Prothrombin Time 15.2 Seconds (9.4-12.1)
[2017-01-07 16:26] LABS: Calcium 8.3 mg/dL (8.6-10.8); Potassium 4.5 mEq/L (3.5-4.5)
[2017-01-07 17:28] LABS: Bilirubin,Urine Negative (Negative); Blood,Urine Small (Negative); Clarity,Urine Clear (Clear); Color,Urine Yellow (Yellow); Glucose,Urine (UA) 250 mg/dL (Normal); Ketones,Urine Negative (Negative); Leukocyte Esterase,Urine Negative (Negative); Nitrite,Urine Negative (Negative); PH,Urine 6.5 pH Units (5.0-8.0); Protein,Urine >=300 mg/dL (Neg-Trace); Specific Gravity,Urine 1.014 (1.010-1.025); Urobilinogen,Urine Normal (Normal)
[2017-01-07 17:31] LABS: Bacteria,Urine None Seen per hpf (None-Few); Hyaline Casts,Urine None Seen per lpf (None-Few); Squamous Epithelial Cell,Urine Many per lpf (None-Few); WBC,Urine 0-3 per hpf (0-3)
[2017-01-07 17:57] LABS: Basophils % 0.2 %; Eosinophils # 0.1 K/mcL (0.0-0.6); Eosinophils % 2.2 %; Immature Granulocytes % 0.7 % (0-4); Lymphocytes # 0.9 K/mcL (0.6-4.6); Lymphocytes % 16.5 %; Mean Corpuscular HGB Conc 29.3 g/dL (31.6-35.5); Mean Corpuscular Hemoglobin 29.1 pg (28.0-33.3); Mean Corpuscular Volume 99.3 fL (83.0-100.0); Mean Platelet Volume 10.1 fL (9.4-12.4); Monocytes # 0.5 K/mcL (0.0-1.3); Neutrophils # 3.9 K/mcL (1.6-8.9); Platelet Count 249 K/mcL (140-400); Red Blood Count 2.82 M/mcL (3.82-4.97); Red Cell Distribution Width 16.7 % (11.5-14.5); Segmented Neutrophils % 71.4 %
--- NOTE | 2017-01-07 18:23 | Emergency Department Note ---
START Narrative - START START: I examined this patient and my medical decision-making was reviewed with the Resident Physician. I agree with the documented findings, disposition and treatment plan as described except to the extent set forth below. Patient presents with generalized weakness, unable to walk across the room. Has a hemoglobin of 8 which is drifted gradually down over a period of couple of months. Hemodynamically normal, had a bloody bowel movement yesterday but has not been having bloody or black stools other than that one episode. Denies chest pain or shortness of breath. Risks and benefits of transfusion discussed with patient, will transfuse. Patient being admitted for further evaluation and treatment.
[2017-01-07] MEDS ORDERED: Acetaminophen 325 MG TABLET PO PRN (20:07)
[2017-01-07] MEDS ORDERED: Naloxone 0.4 MG/ML INJ IVP PRN (20:07)
[2017-01-07] MEDS ORDERED: Nitroglycerin 0.4 MG TAB.SUBL SL PRN (20:15)
[2017-01-07] MEDS ORDERED: 0.9 % Sodium Chloride 250 ML ONE (20:17)
[2017-01-07] MEDS ORDERED: *HR* Dextrose 50 % in Water (Syg) 50 ML SYRINGE IVP PRN (20:20)
[2017-01-07] MEDS ORDERED: D5% in Water 1,000 ML IVC PRN (20:20)
[2017-01-07] MEDS ORDERED: Dextrose Gel 15 GM PO PRN ×2 (20:20)
[2017-01-07] MEDS: Furosemide 40 MG TABLET PO SCH (21:20)
[2017-01-07] MEDS: Gabapentin 100 MG CAPSULE PO SCH (21:20)
[2017-01-07] MEDS: clonazePAM 1 MG TABLET PO SCH (21:20)
[2017-01-07 21:21] LABS: % Iron Saturation 9 % (15-50); Iron 23 mcg/dL (50-170); Transferrin 175 mg/dL (180-382)
[2017-01-07] MEDS: Nystatin POWDER 30 GM BOTTLE TP SCH (21:21)
[2017-01-07] MEDS: *HR* Heparin 5,000 UNIT/ML VIAL SQ SCH (21:21)
[2017-01-07] MEDS: Insulin DETEMIR 100 UNIT/ML X5UNITS SQ SCH (21:24)
--- NOTE | 2017-01-07 21:41 | Internal Med History&Physical ---
Date of Encounter: 01/07/17 Time of Encounter: 19:40 Assessment and Plan (1) LGI bleed Current visit: Yes Status: Acute 1. Will stop Coumadin for now and monitor serial Hgb/Hct. 2. Consult GI for likely colonoscopy (possible outpatient if Hgb stable). (2) Symptomatic anemia Current visit: Yes Status: Acute 1. Will order iron studies. 2. PRBC transfusion one unit now and monitor H/H. 3. Will transfuse further if necessary. 4. Anemia is likely due to CKD plus acute/chronic GI loss. (3) Diabetes Current visit: No Status: Chronic 1. Will continue home basal insulin (lower dose for possible npo status) and SSI. 2. Monitor glucose and adjust doses accordingly. Qualifiers: Diabetes mellitus type: type 2 Diabetes mellitus complication status: with circulatory complication Diabetes mellitus complication detail: with other circulatory complications Diabetes mellitus terminal carman insulin use: with terminal carman use Qualified Code(s): E11.59 - Type 2 diabetes mellitus with other circulatory complications; Z79.4 - shelter (current) use of insulin; Z79.4 - long term (current) use of insulin; Z79.4 - shelter (current) use of insulin; Z79.4 - shelter (current) use of insulin (4) CKD (chronic kidney disease) Current visit: No Status: Chronic 1. Monitor renal function -- appears at baseline presently. 2. Consult nephrology if renal function declines and/or need for further renal guidance. Qualifiers: Chronic kidney disease stage: stage 3 (moderate) Qualified Code(s): N18.3 - Chronic kidney disease, stage 3 (moderate) (5) DVT prophylaxis Current visit: No Status: Acute 1. Hold Coumadin due to GI bleed. 2. Will use Heparin SQ and monitor Gi bleeding closely. Internal Medicine - H&P: HPI Chief complaint: weakness; rectal bleed Admitted From: Emergency Dept Plans for Post Hospital Care: Home History of present illness: Ms. Mars is a 61 year old female with a 2-3 day history of profound weakness , lightheadedness, and fatigue. She had been having some rectal bleeding the last few days, and she attributed this to her hemorrhoids. She has not had a colonoscopy in over 10 years. She takes Coumadin for prior history of DVT roughly 20 years ago. She does have an IVC filter in place. She also has anemia of chronic kidney disease, but her hemoglobin is lower than her baseline and, given the above symptoms, she was admitted to hospitalist service. Upon my assessment of the patient, she denies any complaints at this time. She does admit, however, to being easily fatigued and very weak over the last 2 days. She denies any chest pain, shortness of breath, fevers, vomiting, diarrhea, dysuria, or hematuria. She denies any melena or any history of gastric or duodenal ulcer. Appetite and fluid intake have been stable. Past Med Surg Social Fam HX - Past Medical History Attestation: Yes The following information was validated with the patient. Source: patient, old records reviewed, obtained from family Medical history: arthritis, CHF, COPD, DVT, diabetes, GERD, hyperlipidemia, hypertension, migraine, osteoporosis, renal disease, thyroid disease Psychiatric history: anxiety, depression - Past Surgical History Surgical History: appendectomy, hysterectomy, orthopedic, other, other, IVC filter - Social History Smoking Status: Former smoker Smokeless Tobacco Status: No Alcohol use: none Drug use: none Current living situation: Home, With Family Activity Level: Uses cane/walker, Wheelchair bound Recent Out of Country Travel Within the Last 8 Weeks: No - Family History Mother Living Status: Hx Family Cardiac Disorders: Yes Hx Family Cancer: Yes Hx Family GI Disorders: No Hx Family Endocrine Disorder: Yes (DIABETES MELLITUS.) Father Living Status: Hx Family GI Disorders: No Internal Medicine - H&P: Meds Cyclobenzaprine [Flexeril] 10 mg PO TID 09/12/14 [History] Docusate [Colace] 100 mg PO TID 09/12/14 [History] Doxepin [Sinequan] 50 mg PO HS 09/12/14 [History] Meclizine [Antivert] 25 mg PO TID 09/12/14 [History] Allopurinol [Zyloprim 100 MG] 100 mg PO DAILY 03/22/15 [History] DiphenhydraMINE [Benadryl] 25 mg PO TID 03/22/15 [History] Exenatide Microspheres [Bydureon Pen] 2 mg SQ MO 03/22/15 [History] Lidocaine Patch [Lidoderm 5% patch] 1 - 3 patch TP DAILY 03/22/15 [History] Nitroglycerin [Nitrostat] 0.4 mg SL Q5M PRN 03/22/15 [History] Promethazine [Phenergan] 25 mg PO TID 03/22/15 [History] clonazePAM [Klonopin] 1 mg PO HS 03/22/15 [History] Metoprolol XL (24 HR) Succ [Toprol Xl] 25 mg PO DAILY 07/31/15 [History] Furosemide [Lasix] 40 mg PO BID 03/02/16 [History] Albuterol Neb [AccuNeb] 1.25 mg IH QID PRN 05/06/16 [History] Levothyroxine [Synthroid] 250 mcg PO QAM 05/06/16 [History] Nystatin POWDER [Nystop] 1 appl TP QID 05/06/16 [History] Rosuvastatin [Crestor] 20 mg PO HS 05/06/16 [History] Acetaminophen [Tylenol] 650 mg PO Q4-6H 11/10/16 [History] Omeprazole [PriLOSEC] 40 mg PO DAILY 11/10/16 [History] Isosorbide MONOnitrate (24 HR) [Imdur] 60 mg PO QPM #30 tab.er.24h 11/11/16 [Rx] Potassium Chloride [Klor-Con 10] 10 meq PO BID 11/11/16 [History] Gabapentin [Neurontin] 100 mg PO TID #90 capsule 11/27/16 [Rx] Insulin DETEMIR [Levemir] 100 unit SQ BID #2 vial 11/27/16 [Rx] Insulin LISPRO [HumaLOG] 18 units SQ TIDWM #2 vial 11/27/16 [Rx] Warfarin [Coumadin] 3 mg PO 1800 #5 tablet 11/27/16 [Rx] predniSONE [PredniSONE] 40 mg PO DAILY #10 tablet 11/27/16 [Rx] Furosemide [Lasix] 20 mg PO 1200 01/07/17 [History] amLODIPine [Norvasc] 5 mg PO DAILY 01/07/17 [History] 3 Allergy/AdvReac Type Severity Reaction Status Date / Time aspirin Allergy Hives Verified 01/07/17 18:11 cephalexin [From Keflex] Allergy Difficulty Verified 01/07/17 18:11 Breathing codeine Allergy Hypertensio Verified 01/07/17 18:11 n Cortisone Allergy See Verified 01/07/17 18:11 Comments hydrocortisone Allergy Hypertensio Verified 01/07/17 18:11 n ibuprofen Allergy Hives Verified 01/07/17 18:11 Iodinated Contrast- Oral and Allergy See Verified 01/07/17 18:11 IV Dye Comments [Iodinated Contrast Media - IV Dye] lidocaine [From Xylocaine] Allergy See Verified 01/07/17 18:11 Comments loratadine [From Claritin] Allergy Hives Verified 01/07/17 18:11 methylprednisolone Allergy Hypertensio Verified 01/07/17 18:11 [From Solu-Medrol] n Penicillins Allergy See Verified 01/07/17 18:11 Comments prednisone Allergy Hypertensio Verified 01/07/17 18:11 n Procaine [From Novocain] Allergy See Verified 01/07/17 18:11 Comments propoxyphene [From Darvon] Allergy See Verified 01/07/17 18:11 Comments pseudoephedrine Allergy Hives Verified 01/07/17 18:11 [From Sudafed] ropinirole [From Requip] Allergy See Verified 01/07/17 18:11 Comments tramadol AdvReac See Verified 01/07/17 18:11 Comments - Constitutional Constitutional: fatigue, weakness, no chills, no fever(s), no night sweats - EENT Eyes: no blurry vision, no change in vision Ears: no ear pain, no tinnitus Nose, mouth and throat: no nasal congestion, no sinus pain, no sinus pressure - Cardiovascular Cardiovascular ROS IM: no chest pain, no dyspnea, no dyspnea on exertion, no orthopnea, no paroxysmal nocturnal dyspnea, no syncope - Respiratory Respiratory: no cough, no hemoptysis, no wheezing - Gastrointestinal Gastrointestinal: hematochezia, no abdominal pain, no change in bowel habits, no diarrhea, no melena, no nausea, no vomiting - Genitourinary Genitourinary: no dysuria, no hematuria - Musculoskeletal Musculoskeletal ROS IM: no arthralgias, no back pain - Integumentary Integumentary IM: no rash, no jaundice - Neurological Neurological ROS: no dizziness, no focal weakness, no frequent falls, no headache(s) - Psychiatric Psychiatric: no anxiety, no depression - Endocrine Endocrine IM: no polydipsia, no polyuria - Hematologic/Lymphatic Hematologic/Lymphatic: easy bruising - Allergic/Immunologic Allergic/Immunologic: no wheezing, no GI upset with certain foods - Constitutional Vitals: Temp Pulse Resp BP Pulse Ox 98.2 F 95 20 155/80 93 01/07/17 21:32 01/07/17 21:32 01/07/17 21:32 01/07/17 21:32 01/07/17 21:32 General appearance: Present: A&O X 3, morbidly obese, no acute distress, answers questions appropriately - Head Head exam: Present: atraumatic, normal inspection - Eye Eye exam: Present: EOMI, normal appearance, PERRL. Absent: scleral icterus Pupils: Present: normal accommodation - ENT ENT exam: Present: mucous membranes dry, normal exam, normal oropharynx - Neck Neck exam general surgery: Present: full ROM, supple. Absent: lymphadenopathy, tenderness, nuchal rigidity - Respiratory Respiratory exam: Present: CTAB. Absent: chest wall tenderness, rales, respiratory distress, rhonchi, wheezes - Cardiovascular Cardiovascular exam: Present: distant heart sounds, RRR, +S1, +S2. Absent: systolic murmur - GI/Abdominal GI/Abdominal exam: Present: normal bowel sounds, soft. Absent: guarding, hepatomegaly, splenomegaly, tenderness - Extremities Exam Extremities exam: Present: full ROM, normal capillary refill, warm, radial pulses palpable and symmetrical. Absent: calf tenderness, joint swelling, tenderness - Back Exam Back exam: Absent: CVA tenderness (L), CVA tenderness (R) - Neurological Exam Neurological exam: Present: alert, CN II-XII intact, oriented X3, no focal deficits - Psychiatric Psychiatric exam: Present: normal affect, normal mood - Skin Skin exam: Present: dry, warm. Absent: petechiae, rash Internal Med - H&P Results - Labs CBC & Chem 7: 01/07/17 16:00 01/07/17 16:00 - Diagnostic Studies Chest x-ray Status: image reviewed by me (lungs clear; cardiomegaly)
[2017-01-07 22:01] LABS: Hematocrit 26.3 % (35.3-44.9); Hemoglobin 7.8 g/dL (11.5-15.4)
[2017-01-08] MEDS: Albuterol Neb 1.25 MG/3 ML VIAL IH SCH ×4 (03:50→21:55)
[2017-01-08 04:45] LABS: INR 1.4; Prothrombin Time 15.2 Seconds (9.4-12.1)
[2017-01-08 04:48] LABS: Activated Partial Thrombo Time 30.2 Seconds (26.0-36.0)
[2017-01-08 04:51] LABS: Basophils % 0.2 %; Eosinophils # 0.1 K/mcL (0.0-0.6); Eosinophils % 1.8 %; Hematocrit 27.1 % (35.3-44.9); Hemoglobin 8.1 g/dL (11.5-15.4); Immature Granulocytes % 0.4 % (0-4); Lymphocytes # 0.9 K/mcL (0.6-4.6); Lymphocytes % 17.7 %; Mean Corpuscular HGB Conc 29.9 g/dL (31.6-35.5); Mean Corpuscular Hemoglobin 29.1 pg (28.0-33.3); Mean Corpuscular Volume 97.5 fL (83.0-100.0); Mean Platelet Volume 9.9 fL (9.4-12.4); Monocytes # 0.4 K/mcL (0.0-1.3); Monocytes % 8.2 %; Neutrophils # 3.6 K/mcL (1.6-8.9); Platelet Count 227 K/mcL (140-400); Red Blood Count 2.78 M/mcL (3.82-4.97); Red Cell Distribution Width 16.9 % (11.5-14.5); Segmented Neutrophils % 71.7 %
[2017-01-08 04:59] LABS: Albumin 1.9 g/dL (3.5-5.0); Albumin/Globulin Ratio 0.5 (1.1-2.2); Bilirubin,Total 0.2 mg/dL (0.2-1.2); Calcium 8.1 mg/dL (8.6-10.8); Globulin 4.2 g/dL (2.4-3.5); Potassium 4.2 mEq/L (3.5-4.5); Total Protein 6.1 g/dL (6.0-8.3)
[2017-01-08] MEDS: *HR* Heparin 5,000 UNIT/ML VIAL SQ SCH ×2 (06:08→19:32)
--- NOTE | 2017-01-08 08:20 | Electrocardiograph Report ---
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
[2017-01-08] MEDS: predniSONE 20 MG TABLET PO SCH (09:43)
[2017-01-08] MEDS: Insulin DETEMIR 100 UNIT/ML X5UNITS SQ SCH ×2 (09:43→20:58)
[2017-01-08] MEDS: Insulin LISPRO 300 UNITS/3 ML VIAL SQ SCH ×3 (09:43→17:37)
[2017-01-08] MEDS: Metoprolol XL (24 HR) Succ 25 MG TAB.ER.24H PO SCH (09:44)
[2017-01-08] MEDS: Furosemide 40 MG TABLET PO SCH ×2 (09:44→20:51)
[2017-01-08] MEDS: Gabapentin 100 MG CAPSULE PO SCH ×3 (09:44→20:52)
[2017-01-08] MEDS: amLODIPine 5 MG TABLET PO SCH (09:44)
[2017-01-08] MEDS: Nystatin POWDER 30 GM BOTTLE TP SCH ×4 (09:44→20:58)
[2017-01-08 11:17] LABS: Hematocrit 28.8 % (35.3-44.9); Hemoglobin 8.6 g/dL (11.5-15.4)
--- NOTE | 2017-01-08 15:09 | Internal Med Progress Note ---
Date of Encounter: 01/08/17 Time of Encounter: 15:06 - Assessment and plan (1) Anemia Current Visit: Yes Status: Acute Assessment and plan: per hx. patient reports recently being hospitalized and required blood transfusion at that time. Hgb 7.9 on arrival. Received 1 unit PRBC. Repeat Hgb 8.6. Clear liquid diet, monitor H&H, IV PPI. Stop coumadin. GI consulted Qualifiers: Anemia type: due to chronic kidney disease Chronic kidney disease stage: stage 4 (severe) Qualified Code(s): N18.4 - Chronic kidney disease, stage 4 ( severe); D63.1 - Anemia in chronic kidney disease; D63.1 - Anemia in chronic kidney disease (2) DM (diabetes mellitus), type 2 Current Visit: No Status: Chronic Assessment and plan: per hx. Blood sugars variable but acceptable. SSI. 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 Holding coumadin with possible GI bleed (4) CKD (chronic kidney disease) Current Visit: No Status: Chronic Assessment and plan: per hx. Cr at baseline. Avoid nephrotoxic agents as possible. Cont to monitor Qualifiers: Chronic kidney disease stage: stage 3 (moderate) Qualified Code(s): N18.3 - Chronic kidney disease, stage 3 (moderate) - Subjective Interval history: Seen and examined at bedside. Patient is new to me, information obtained from chart review and patient report. Patient says she is tired, sleepy and weak. Says she does not have much of an appetite. No active bleeding. Says she supposed to wear BiPAP at home but she is unable to tolerate it. No other complaints besides being tired and weak. - Constitutional Vitals: Temp Pulse Resp BP Pulse Ox 97.3 F L 92 16 157/85 97 01/08/17 11:50 01/08/17 11:50 01/08/17 11:50 01/08/17 11:50 01/08/17 11:50 General appearance: Present: A&O X 3, morbidly obese, no acute distress, answers questions appropriately - Head Head exam: Present: atraumatic, normocephalic - Eye Eye exam: Present: PERRL, conjuntiva pink, sclera anicteric Pupils: Present: PERRL - Neck Neck exam general surgery: Present: supple, trachea midline. Absent: lymphadenopathy - Respiratory Respiratory exam: Present: CTAB. Absent: accessory muscle use, rales, rhonchi, wheezes - Cardiovascular Cardiovascular exam: Present: RRR, +S1, +S2. Absent: diastolic murmur, gallop, rubs, systolic murmur - GI/Abdominal GI/Abdominal exam: Present: normal bowel sounds, soft, no peritoneal signs. Absent: distended, tenderness - Extremities Exam Extremities exam: Present: pedal edema, warm, radial pulses palpable and symmetrical. Absent: calf tenderness, cyanotic - Neurological Exam Neurological exam: Present: CN II-XII intact, oriented X3, no focal deficits. Absent: pronater drift, facial droop, speech deficit - Skin Skin exam: Present: dry, intact Internal Medicine: Result - Labs CBC & Chem 7: 01/08/17 11:10 01/08/17 04:07 Labs: Short CBC 01/07/17 01/08/17 01/08/17 Range/Units 20:41 04:07 11:10 WBC 5.0 (4.3-11.1) K/mcL Hgb 7.8 L 8.1 L 8.6 L (11.5-15.4) g/dL Hct 26.3 L 27.1 L 28.8 L (35.3-44.9) % Plt Count 227 (140-400) K/mcL Neutrophils # 3.6 (1.6-8.9) K/mcL BMP 01/08/17 04:07 Sodium 140 Potassium 4.2 Chloride 107 Carbon Dioxide 26 BUN 32 H Creatinine 2.51 H Glucose 206 H Calcium 8.1 L Liver Function 01/08/17 Range/Units 04:07 Total Bilirubin 0.2 (0.2-1.2) mg/dL AST 10 (5-34) Units/L ALT 11 (0-55) Units/L Alkaline Phosphatase 110 (38-126) Units/L Albumin 1.9 L (3.5-5.0) g/dL - ABG Interpretation ABG results: PT/INR, D-dimer PT 15.2 Seconds (9.4-12.1) H 01/08/17 04:07 Consult Discharge Plan - Plan Referrals: Mauro Dockery MD [Primary Care Provider] -
[2017-01-08] MEDS ORDERED: SODIUM CHLORIDE/NAHCO3/KCL/PEG 4,000 ML SOLN.RECON PO ONE (17:00)
[2017-01-08] MEDS: Isosorbide MONOnitrate (24 HR) 30 MG TAB.ER.24H PO SCH (17:37)
[2017-01-08 20:02] LABS: Hemoglobin 8.8 g/dL (11.5-15.4)
[2017-01-08] MEDS: clonazePAM 1 MG TABLET PO SCH (20:51)
[2017-01-09] MEDS: Albuterol Neb 1.25 MG/3 ML VIAL IH SCH ×4 (04:28→22:18)
[2017-01-09 04:53] LABS: Hematocrit 27.4 % (35.3-44.9); Hemoglobin 8.3 g/dL (11.5-15.4); Mean Corpuscular HGB Conc 30.3 g/dL (31.6-35.5); Mean Corpuscular Hemoglobin 29.2 pg (28.0-33.3); Mean Corpuscular Volume 96.5 fL (83.0-100.0); Platelet Count 237 K/mcL (140-400); Red Blood Count 2.84 M/mcL (3.82-4.97); Red Cell Distribution Width 16.6 % (11.5-14.5)
[2017-01-09 04:59] LABS: Calcium 8.8 mg/dL (8.6-10.8); Potassium 4.1 mEq/L (3.5-4.5)
--- NOTE | 2017-01-09 08:58 | Gastroenterology Consult Note ---
<Kristopher Alanis - Last Filed: 01/09/17 16:35> Date of Encounter: 01/09/17 Time of Encounter: 08:58 - Assessment and plan (1) LGI bleed Current Visit: Yes Status: Acute Assessment and plan: patient had 2 eipsodes of brb per rectum hgb 7.9 on admission with is below baseline of 10 transfused 1unit [facility] patient refused to prep last night and requests outpatient colonoscopy -patient explained importance of procedure as she has family hx of colon cancer, presented with anemia and is on coumadin for previous dvt which if restarted may worsen anemia. plan: monitor h/h patient agreed to colonoscopy tomorrow. prep ordered. (2) DVT (deep venous thrombosis) Current Visit: Yes Status: Chronic Assessment and plan: hx of dvt on coumadin monitor h/h and if stable may restart. Qualifiers: DVT location: lower extremity Affected thrombotic vein of extremity: unspecified vein of extremity Chronicity: unspecified Laterality: unspecified laterality Qualified Code(s): I82.409 - Acute embolism and thrombosis of unspecified deep veins of unspecified lower extremity (3) Anemia Current Visit: Yes Status: Acute Assessment and plan: 2nd to lower gi bleed iron studies show iron deficiency recommend starting iron supplementation. Qualifiers: Anemia type: due to chronic kidney disease Chronic kidney disease stage: stage 4 (severe) Qualified Code(s): N18.4 - Chronic kidney disease, stage 4 ( severe); D63.1 - Anemia in chronic kidney disease; D63.1 - Anemia in chronic kidney disease - Time Spent With Patient Total time spent is greater than 50% in coordination of care (as documented) at patient's floor/unit and/or counseling patient: GI History of Present Illness - Data of Consult Patient: new to practice Consult date: 01/08/17 Requesting Physician: Precious Roca CNP - Consult Narrative Reason for consult: brb per rectum History of present illness: Ms. Mars is a 61 year old female presented with cc of fatigue of 3 days. patient reports she had two episodes of brb per rectum with last one being two days ago. She reports brb mixed with the stool. She has not had any recurrent episodes. She has hx of hemorrhoids and attributed her bleeding to this. Last colonoscopy was 10 years ago. Patient's mother had colon cancer. Patient is on coumadin for DVT. Furthermore, her hgb was 2gms below baseline and she was transfused 1 unit PBRC. Patient was given orderes to prep for colonoscopy but she refused the prep and also refused miralax prep. This morning patient was told the importance of her colonoscopy but stated she would like to have it done outpatient because at home she is easily able to go from her bed to the commode. Past Med Surg Social Fam HX - Past Medical History Medical history: arthritis, CHF, COPD, DVT, diabetes, GERD, hyperlipidemia, hypertension, migraine, osteoporosis, renal disease, thyroid disease, other Psychiatric history: anxiety, depression - Past Surgical History Surgical History: appendectomy, hysterectomy, orthopedic, other, other, IVC filter - Social History Smoking Status: Former smoker Smokeless Tobacco Status: No Alcohol use: none Drug use: none - Family History Father Living Status: Hx Family GI Disorders: No Mother Living Status: Hx Family Cardiac Disorders: Yes Hx Family Cancer: Yes Hx Family GI Disorders: No Hx Family Endocrine Disorder: Yes (DIABETES MELLITUS.) Review of Systems: Constitutional: Denies fever, chills HEENT: Denies headache, vision changes, neck pain, sore throat, rhinorrhea Heart: Denies chest pain palpitations Lungs: Denies shortness of breath cough Abdomen: Denies abdominal pain nausea vomiting diarrhea. Reports hematochezia Back: Denies back pain Kidney: Denies dysuria, hematuria Skin: warm and dry Extremities: Denies swelling, pain Neuro: Denies numbness, and tingling - Constitutional Vitals: Temp Pulse Resp BP Pulse Ox 97.4 F L 84 16 148/67 91 01/09/17 07:39 01/09/17 07:39 01/09/17 07:39 01/09/17 07:39 01/09/17 07:39 - Other Additional findings: General: Pleasant without distress HEENT: Head atraumatic, normocephalic, EOMI, PERRL, neck nontender to palpation , absent lymphadenopathy, Moist Mucous Membranes, Heart: Regular rate and rhythm with no murmur Lungs: Clear to auscultation bilaterally Abdomen: Soft nontender, nondistended positive bowel sounds Skin: warm and dry Extremities: Absent pedal edema, Neuro: Alert and oriented 3 Vascular: Pedal and radial pulses 2 out of 4 Results - Labs CBC & Chem 7: 01/09/17 12:16 01/09/17 04:24 Labs: Last Result Calcium 8.8 mg/dL (8.6-10.8) 01/09/17 04:24 Iron 23 mcg/dL (50-170) L 01/07/17 20:41 % Saturation 9 % (15-50) L 01/07/17 20:41 Transferrin 175 mg/dL (180-382) L 01/07/17 20:41 Troponin I 0.02 ng/mL (0-0.03) 01/07/17 16:00 Stool Occult Blood Negative (Negative) 01/07/17 18:00 Entire Visit Hgb 8.3 g/dL (11.5-15.4) L 01/09/17 04:24 Hct 27.4 % (35.3-44.9) L 01/09/17 04:24 PT 15.2 Seconds (9.4-12.1) H 01/08/17 04:07 Total Bilirubin 0.2 mg/dL (0.2-1.2) 01/08/17 04:07 AST 10 Units/L (5-34) 01/08/17 04:07 ALT 11 Units/L (0-55) 01/08/17 04:07 - ABG ABG results: PT/INR, D-dimer PT 15.2 Seconds (9.4-12.1) H 01/08/17 04:07 Consult Discharge Plan - Plan Referrals: Mauro Dockery MD [Primary Care Provider] - <Eloy Foy - Last Filed: 01/09/17 18:03> Date of Encounter: 01/09/17 Time of Encounter: 15:00 - Time Spent With Patient Total time spent is greater than 50% in coordination of care (as documented) at patient's floor/unit and/or counseling patient: GI History of Present Illness - Data of Consult Requesting Physician: Precious Roca CNP - Consult Narrative History of present illness: Ms. Mars is a 61 year old female - Constitutional Vitals: Temp Pulse Resp BP Pulse Ox 97.7 F 88 16 154/89 92 01/09/17 16:00 01/09/17 16:00 01/09/17 16:05 01/09/17 16:00 01/09/17 16:05 Results - Labs CBC & Chem 7: 01/09/17 12:16 01/09/17 04:24 Labs: Last Result Calcium 8.8 mg/dL (8.6-10.8) 01/09/17 04:24 Iron 23 mcg/dL (50-170) L 01/07/17 20:41 % Saturation 9 % (15-50) L 01/07/17 20:41 Transferrin 175 mg/dL (180-382) L 01/07/17 20:41 Troponin I 0.02 ng/mL (0-0.03) 01/07/17 16:00 Stool Occult Blood Negative (Negative) 01/07/17 18:00 Entire Visit Hgb 9.1 g/dL (11.5-15.4) L 01/09/17 12:16 Hct 30.6 % (35.3-44.9) L 01/09/17 12:16 PT 15.2 Seconds (9.4-12.1) H 01/08/17 04:07 Total Bilirubin 0.2 mg/dL (0.2-1.2) 01/08/17 04:07 AST 10 Units/L (5-34) 01/08/17 04:07 ALT 11 Units/L (0-55) 01/08/17 04:07 - ABG ABG results: PT/INR, D-dimer PT 15.2 Seconds (9.4-12.1) H 01/08/17 04:07 - Attending Attestation I examined this patient and my medical decision-making was reviewed with the Resident Physician. I agree with the documented findings, disposition and treatment plan as described except to the extent set forth below.
[2017-01-09] MEDS: Insulin LISPRO 300 UNITS/3 ML VIAL SQ SCH ×3 (10:49→17:33)
[2017-01-09] MEDS: amLODIPine 5 MG TABLET PO SCH (10:50)
[2017-01-09] MEDS: Nystatin POWDER 30 GM BOTTLE TP SCH ×4 (11:03→21:27)
[2017-01-09] MEDS: predniSONE 20 MG TABLET PO SCH (11:04)
--- NOTE | 2017-01-09 11:04 | Internal Med Progress Note ---
Date of Encounter: 01/09/17 Time of Encounter: 11:02 - Assessment and plan (1) Anemia Current Visit: Yes Status: Acute Assessment and plan: per hx. Patient reports recently being hospitalized and required blood transfusion at that time. Hgb 7.9 on arrival. Received 1 unit PRBC. Repeat Hgb 8.3. Occult stool negative. GI consulted and recommended colonoscopy however patient refusing. Says she will discuss with her first. Monitor H&H, IV PPI, GI following. Qualifiers: Anemia type: due to chronic kidney disease Chronic kidney disease stage: stage 4 (severe) Qualified Code(s): N18.4 - Chronic kidney disease, stage 4 ( severe); D63.1 - Anemia in chronic kidney disease; D63.1 - Anemia in chronic kidney disease (2) DM (diabetes mellitus), type 2 Current Visit: No Status: Chronic Assessment and plan: per hx. Blood sugars variable but acceptable. SSI. Monitor blood sugar and titrate PRN Qualifiers: Diabetes mellitus complication status: with hyperglycemia Diabetes mellitus halfway insulin use: with halfway use Qualified Code(s): E11.65 - Type 2 diabetes mellitus with hyperglycemia; Z79.4 - halfway (current) use of insulin (3) History of DVT (deep vein thrombosis) Current Visit: No Status: Chronic Assessment and plan: per hx. Holding coumadin with possible GI bleed (4) CKD (chronic kidney disease) Current Visit: No Status: Chronic Assessment and plan: per hx. Cr at baseline. Avoid nephrotoxic agents as possible. Cont to monitor Qualifiers: Chronic kidney disease stage: stage 3 (moderate) Qualified Code(s): N18.3 - Chronic kidney disease, stage 3 (moderate) - Subjective Interval history: Seen and examined at bedside. Patient refused bowel prep for colonoscopy last night. States she is worried she will have an accident and will be able to make it to the bathroom in time. States she wants to go home and follow up outpatient. I discussed at length with her my concern that if she went home she would likely return to the hospital as an globin is borderline and concerned it would drop with resuming Coumadin therefore requiring another blood transfusion. Patient is insisting on going home, states that she feels God is working on her and he is making her feel better. Advised patient that she left it would be AGAINST MEDICAL ADVICE. - Constitutional Vitals: Temp Pulse Resp BP Pulse Ox 97.4 F L 84 16 148/67 91 01/09/17 07:39 01/09/17 07:39 01/09/17 07:39 01/09/17 07:39 01/09/17 07:39 General appearance: Present: A&O X 3, morbidly obese, no acute distress, answers questions appropriately - Head Head exam: Present: atraumatic, normocephalic - Eye Eye exam: Present: PERRL, conjuntiva pink, sclera anicteric Pupils: Present: PERRL - Neck Neck exam general surgery: Present: supple, trachea midline. Absent: lymphadenopathy - Respiratory Respiratory exam: Present: CTAB. Absent: accessory muscle use, rales, rhonchi, wheezes - Cardiovascular Cardiovascular exam: Present: RRR, +S1, +S2. Absent: diastolic murmur, gallop, rubs, systolic murmur - GI/Abdominal GI/Abdominal exam: Present: normal bowel sounds, soft, no peritoneal signs. Absent: distended, tenderness - Extremities Exam Extremities exam: Present: warm, radial pulses palpable and symmetrical. Absent : calf tenderness, cyanotic, pedal edema - Neurological Exam Neurological exam: Present: CN II-XII intact, oriented X3, no focal deficits. Absent: pronater drift, facial droop, speech deficit - Skin Skin exam: Present: dry, intact Internal Medicine: Result - Labs CBC & Chem 7: 01/09/17 04:24 01/09/17 04:24 Labs: Short CBC 01/08/17 01/08/17 01/09/17 Range/Units 11:10 19:52 04:24 WBC 4.8 (4.3-11.1) K/mcL Hgb 8.6 L 8.8 L 8.3 L (11.5-15.4) g/dL Hct 28.8 L 29.0 L 27.4 L (35.3-44.9) % Plt Count 237 (140-400) K/mcL BMP 01/09/17 04:24 Sodium 141 Potassium 4.1 Chloride 107 Carbon Dioxide 28 BUN 32 H Creatinine 2.31 H Glucose 129 H Calcium 8.8 - ABG Interpretation ABG results: PT/INR, D-dimer PT 15.2 Seconds (9.4-12.1) H 01/08/17 04:07 Consult Discharge Plan - Plan Referrals: Mauro Dockery MD [Primary Care Provider] -
[2017-01-09] MEDS: Furosemide 40 MG TABLET PO SCH ×2 (11:05→21:21)
[2017-01-09] MEDS: Gabapentin 100 MG CAPSULE PO SCH ×3 (11:05→21:21)
[2017-01-09] MEDS: Metoprolol XL (24 HR) Succ 25 MG TAB.ER.24H PO SCH (11:05)
[2017-01-09] MEDS: Insulin DETEMIR 100 UNIT/ML X5UNITS SQ SCH ×2 (11:29→21:26)
[2017-01-09 12:36] LABS: Hematocrit 30.6 % (35.3-44.9); Hemoglobin 9.1 g/dL (11.5-15.4)
[2017-01-09] MEDS ORDERED: Polyethylene Glycol 3350 255 GM POWDER PO ONE (15:37)
[2017-01-09] MEDS: Isosorbide MONOnitrate (24 HR) 30 MG TAB.ER.24H PO SCH (17:40)
[2017-01-09 20:56] LABS: Hematocrit 30.4 % (35.3-44.9); Hemoglobin 9.4 g/dL (11.5-15.4)
[2017-01-09] MEDS: clonazePAM 1 MG TABLET PO SCH (21:20)
[2017-01-10] MEDS: Albuterol Neb 1.25 MG/3 ML VIAL IH SCH ×4 (03:47→23:40)
[2017-01-10 05:48] LABS: Hematocrit 28.1 % (35.3-44.9); Hemoglobin 8.5 g/dL (11.5-15.4); Mean Corpuscular HGB Conc 30.2 g/dL (31.6-35.5); Mean Corpuscular Hemoglobin 28.7 pg (28.0-33.3); Mean Corpuscular Volume 94.9 fL (83.0-100.0); Mean Platelet Volume 9.6 fL (9.4-12.4); Platelet Count 249 K/mcL (140-400); Red Blood Count 2.96 M/mcL (3.82-4.97); Red Cell Distribution Width 16.6 % (11.5-14.5)
[2017-01-10 06:05] LABS: Calcium 8.6 mg/dL (8.6-10.8)
--- NOTE | 2017-01-10 08:59 | Anesthesia Evaluation PreOp ---
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: CVA (residual right central vision disturbance) Other Medical History: Renal ( CKD stage 3), Diabetes Type II, Thyroid, GERD, Other (obesity BMI=64.8, H/O DVT) Anesthesia History: No Prior Anesthetic Complications, Past Anesthesia Alcohol Use: none Drug use: none Medications and Allergies Cyclobenzaprine [Flexeril] 10 mg PO TID 09/12/14 [History] Docusate [Colace] 100 mg PO TID 09/12/14 [History] Doxepin [Sinequan] 50 mg PO HS 09/12/14 [History] Meclizine [Antivert] 25 mg PO TID 09/12/14 [History] Allopurinol [Zyloprim 100 MG] 100 mg PO DAILY 03/22/15 [History] DiphenhydraMINE [Benadryl] 25 mg PO TID 03/22/15 [History] Exenatide Microspheres [Bydureon Pen] 2 mg SQ MO 03/22/15 [History] Lidocaine Patch [Lidoderm 5% patch] 1 - 3 patch TP DAILY 03/22/15 [History] Nitroglycerin [Nitrostat] 0.4 mg SL Q5M PRN 03/22/15 [History] Promethazine [Phenergan] 25 mg PO TID 03/22/15 [History] clonazePAM [Klonopin] 1 mg PO HS 03/22/15 [History] Metoprolol XL (24 HR) Succ [Toprol Xl] 25 mg PO DAILY 07/31/15 [History] Furosemide [Lasix] 40 mg PO BID 03/02/16 [History] Albuterol Neb [AccuNeb] 1.25 mg IH QID PRN 05/06/16 [History] Levothyroxine [Synthroid] 250 mcg PO QAM 05/06/16 [History] Nystatin POWDER [Nystop] 1 appl TP QID 05/06/16 [History] Rosuvastatin [Crestor] 20 mg PO HS 05/06/16 [History] Acetaminophen [Tylenol] 650 mg PO Q4-6H 11/10/16 [History] Omeprazole [PriLOSEC] 40 mg PO DAILY 11/10/16 [History] Isosorbide MONOnitrate (24 HR) [Imdur] 60 mg PO QPM #30 tab.er.24h 11/11/16 [Rx] Potassium Chloride [Klor-Con 10] 10 meq PO BID 11/11/16 [History] Gabapentin [Neurontin] 100 mg PO TID #90 capsule 11/27/16 [Rx] Insulin DETEMIR [Levemir] 100 unit SQ BID #2 vial 11/27/16 [Rx] Insulin LISPRO [HumaLOG] 18 units SQ TIDWM #2 vial 11/27/16 [Rx] Warfarin [Coumadin] 3 mg PO 1800 #5 tablet 11/27/16 [Rx] predniSONE [PredniSONE] 40 mg PO DAILY #10 tablet 11/27/16 [Rx] Furosemide [Lasix] 20 mg PO 1200 01/07/17 [History] amLODIPine [Norvasc] 5 mg PO DAILY 01/07/17 [History] 3 Allergy/AdvReac Type Severity Reaction Status Date / Time aspirin Allergy Hives Verified 01/07/17 18:11 cephalexin [From Keflex] Allergy Difficulty Verified 01/07/17 18:11 Breathing codeine Allergy Hypertensio Verified 01/07/17 18:11 n Cortisone Allergy See Verified 01/07/17 18:11 Comments hydrocortisone Allergy Hypertensio Verified 01/07/17 18:11 n ibuprofen Allergy Hives Verified 01/07/17 18:11 Iodinated Contrast- Oral and Allergy See Verified 01/07/17 18:11 IV Dye Comments [Iodinated Contrast Media - IV Dye] lidocaine [From Xylocaine] Allergy See Verified 01/07/17 18:11 Comments loratadine [From Claritin] Allergy Hives Verified 01/07/17 18:11 methylprednisolone Allergy Hypertensio Verified 01/07/17 18:11 [From Solu-Medrol] n Penicillins Allergy See Verified 01/07/17 18:11 Comments prednisone Allergy Hypertensio Verified 01/07/17 18:11 n Procaine [From Novocain] Allergy See Verified 01/07/17 18:11 Comments propoxyphene [From Darvon] Allergy See Verified 01/07/17 18:11 Comments pseudoephedrine Allergy Hives Verified 01/07/17 18:11 [From Sudafed] ropinirole [From Requip] Allergy See Verified 01/07/17 18:11 Comments tramadol AdvReac See Verified 01/07/17 18:11 Comments - Meds/Allergy Pre-op Review Medications Reviewed: Yes Allergies Reviewed: Yes Beta Blockers on Current Med List: Yes If Beta Blockers taken, Date/Time (Last Dose taken): 01/08/2017 at 1105 Anesthesia Results - Labs 01/10/17 05:24 01/10/17 05:24 - Imaging EKG: report reviewed (01/07/2017 SINUS RHYTHM POSSIBLE RIGHT VENTRICULAR CONDUCTION DELAY) Additional studies: 11/23/2016 Echo Impressions: Technically suboptimal due to poor echocardiographic windows. Definity contrast utilized. Overall LV function appears grossly normal. EF 60-65% No significant valvular heart disease by Doppler criteria. There is no evidence of a PFO by color Doppler or saline contrast. Suggest ESTELITA if clinically indicated. Anesthesia Exam Vital Signs/O2 Sat/Glucose, Most Recent Temp Pulse Resp BP Pulse Ox 97.5 F L 76 16 173/71 96 01/10/17 07:41 01/10/17 07:41 01/10/17 07:41 01/10/17 07:41 01/10/17 07:41 Blood Glucose* 160 Height: 5'6.5"/1.69 m Weight: 407 lbs/184.8 kg NPO (# of Hours): 8 Pain Scale: 0 Pain Scale Used: Numeric (1 - 10) - HEENT Pupil (Motor): EOMI Mallampati: III Teeth: Poor dentition Oral Opening: Greater than 3 - MARKETING PROJECT SPECIALIST LOC: Oriented MARKETING PROJECT SPECIALIST Motor: Normal RUE, Normal LUE, Normal RLE, Normal LLE, Normal Face MARKETING PROJECT SPECIALIST Sensory: Normal: RUE, LUE, Face, Deficit: RLE, LLE - Cardiac Rhythm: Regular Murmur: None - Pulmonary Breath Sounds: bilateral Clear Respiratory Effort: Symmetrical Anesthesia Assess/Plan ASA Score: 4 Modified Daisy Scale for Level of Consciousness: Cooperative, oriented, and tranquil Anesthetic Plan: MAC Monitoring Plan: Standard Monitors
[2017-01-10] MEDS: Insulin LISPRO 300 UNITS/3 ML VIAL SQ SCH ×3 (09:34→16:41)
[2017-01-10] MEDS ORDERED: Tetracaine/Benzocaine/Butamben 200MG/SPRAY (100SPY/BOT) MM ONE (10:15)
[2017-01-10] MEDS ORDERED: Propofol 500 MG/50 ML INFUS..BTL ONE (10:56)
[2017-01-10] MEDS ORDERED: *HR* Propofol 200 MG/20 ML VIAL IVP ONE (10:56)
[2017-01-10] MEDS ORDERED: Lidocaine -MPF 2% 2 ML VIAL ONE ×2 (10:56)
--- NOTE | 2017-01-10 11:01 | Anesthesia Evaluation Post Op ---
Date of Encounter: 01/10/17 Time of Encounter: 11:00 - Vital Signs Vital Signs: 106/52, HR 79, RR 11, SpO2 96% - Lungs Lungs: Clear Ascult./Percussion - Airway Airway: Non-obstructed - Cardiovascular Regular Rate - Mental Status Mental Status: Alert & Oriented, Answers Appropriately - Pain Pain Scale: 0 Pain Scale used: Numeric (1 - 10) - Nausea Vomiting Nausea Vomiting: Not Present - Hydration Hydration: NPO, Has not voided - Discharge PostOp Status: Transfer Patient to floor
--- NOTE | 2017-01-10 12:44 | Gastroenterology Progress Note ---
<Kristopher Alanis - Last Filed: 01/10/17 12:41> Date of Encounter: 01/10/17 Time of Encounter: 12:41 - Assessment and plan (1) LGI bleed Status: Acute Assessment and plan: colonoscopy found multiple poplyps: biopsy obtained. Polyps not removed as patient on plavix within 5 days plan: outpatient follow up and schedule for outpatient colonoscopy. (2) DVT (deep venous thrombosis) Status: Chronic Assessment and plan: hx of dvt on coumadin monitor h/h and if stable may restart. Qualifiers: DVT location: lower extremity Affected thrombotic vein of extremity: unspecified vein of extremity Chronicity: unspecified Laterality: unspecified laterality Qualified Code(s): I82.409 - Acute embolism and thrombosis of unspecified deep veins of unspecified lower extremity (3) Anemia Status: Acute Assessment and plan: 2nd to lower gi bleed iron studies show iron deficiency recommend starting iron supplementation. Qualifiers: Anemia type: due to chronic kidney disease Chronic kidney disease stage: stage 4 (severe) Qualified Code(s): N18.4 - Chronic kidney disease, stage 4 ( severe); D63.1 - Anemia in chronic kidney disease; D63.1 - Anemia in chronic kidney disease - Time Spent With Patient Total time spent is greater than 50% in coordination of care (as documented) at patient's floor/unit and/or counseling patient: - Subjective Interval history: Patient denies abdominal pain, N/V. Reports hematochezia yesterday. hgb stable. States she also has history of esophageal ulcers. She underwent EGD and colonoscopy today. - Constitutional Vitals: Temp Pulse Resp BP Pulse Ox 97.4 F L 76 14 177/99 94 01/10/17 12:30 01/10/17 12:30 01/10/17 12:30 01/10/17 12:30 01/10/17 12:30 General appearance: Present: cooperative, A&O X 3, no acute distress, answers questions appropriately - Respiratory Respiratory exam: Present: CTAB - Cardiovascular Cardiovascular exam: Present: RRR, +S1, +S2 - GI/Abdominal GI/Abdominal exam: Present: normal bowel sounds, soft, no peritoneal signs - Extremities Exam Extremities exam: Present: warm. Absent: pedal edema Results - Labs CBC & Chem 7: 01/10/17 05:24 01/10/17 05:24 Labs: Last Result Calcium 8.6 mg/dL (8.6-10.8) 01/10/17 05:24 Iron 23 mcg/dL (50-170) L 01/07/17 20:41 % Saturation 9 % (15-50) L 01/07/17 20:41 Transferrin 175 mg/dL (180-382) L 01/07/17 20:41 Troponin I 0.02 ng/mL (0-0.03) 01/07/17 16:00 Stool Occult Blood Negative (Negative) 01/07/17 18:00 Entire Visit Hgb 8.5 g/dL (11.5-15.4) L 01/10/17 05:24 Hct 28.1 % (35.3-44.9) L 01/10/17 05:24 PT 15.2 Seconds (9.4-12.1) H 01/08/17 04:07 Total Bilirubin 0.2 mg/dL (0.2-1.2) 01/08/17 04:07 AST 10 Units/L (5-34) 01/08/17 04:07 ALT 11 Units/L (0-55) 01/08/17 04:07 - ABG ABG results: PT/INR, D-dimer PT 15.2 Seconds (9.4-12.1) H 01/08/17 04:07 Consult Discharge Plan - Plan Instructions: Iron Supplements (By mouth), Acute Kidney Injury (DC), Using Oxygen at Home (DC) Referrals: Cornell Genao MD [Partnered Physician] - (Need ouptatient follow up for polyps in colon. Patient and colonoscopy which showed polyps which were not removed due to patient being on plavix. Family history of colon cancer ) Mauro Dockery MD [Primary Care Provider] - (Appointment has been webrequested. Our offices will call you with a follow up appointment time and date. Thank You. ) Prescriptions: Ferrous Sulfate 325 mg PO BIDWM #60 tablet <Cornell Genao - Last Filed: 01/15/17 10:59> Date of Encounter: 01/10/17 - Time Spent With Patient Total time spent is greater than 50% in coordination of care (as documented) at patient's floor/unit and/or counseling patient: - Constitutional Vitals: Temp Pulse Resp BP Pulse Ox 98.3 F 76 16 150/66 100 01/11/17 11:51 01/11/17 11:51 01/11/17 11:51 01/11/17 11:51 01/11/17 11:51 Results - Labs CBC & Chem 7: 01/11/17 04:23 01/11/17 04:23 Labs: Last Result Calcium 8.6 mg/dL (8.6-10.8) 01/11/17 04:23 Iron 23 mcg/dL (50-170) L 01/07/17 20:41 % Saturation 9 % (15-50) L 01/07/17 20:41 Transferrin 175 mg/dL (180-382) L 01/07/17 20:41 Troponin I 0.02 ng/mL (0-0.03) 01/07/17 16:00 Stool Occult Blood Negative (Negative) 01/07/17 18:00 Entire Visit Hgb 8.3 g/dL (11.5-15.4) L 01/11/17 04:23 Hct 27.7 % (35.3-44.9) L 01/11/17 04:23 PT 15.2 Seconds (9.4-12.1) H 01/08/17 04:07 Total Bilirubin 0.2 mg/dL (0.2-1.2) 01/11/17 04:23 AST 13 Units/L (5-34) 01/11/17 04:23 ALT 11 Units/L (0-55) 01/11/17 04:23 - ABG ABG results: PT/INR, D-dimer PT 15.2 Seconds (9.4-12.1) H 01/08/17 04:07 - Attending Attestation Patient has had colonscopy with finding of multiple polyps. Unfortunately due to anticoagulation on board these could not be removed. Plan outpatient when cleared by cardiology for stopping anticoagualtion I examined this patient and my medical decision-making was reviewed with the Resident Physician. I agree with the documented findings, disposition and treatment plan as described except to the extent set forth below.
--- NOTE | 2017-01-10 13:42 | Internal Med Progress Note ---
Date of Encounter: 01/10/17 Time of Encounter: 13:40 - Assessment and plan (1) Anemia Current Visit: Yes Status: Acute Assessment and plan: per hx. Patient reports recently being hospitalized and required blood transfusion at that time. Hgb 7.9 on arrival. Received 1 unit PRBC. Repeat Hgb 8.3. Occult stool negative. GI consulted and recommended colonoscopy however patient refusing. Says she will discuss with her first. Monitor H&H, IV PPI, GI following. 01/10/2017. Patient is scheduled for endoscopy today. Patient is seen by GI yesterday. We will follow the recommendations from gastroenterology. Qualifiers: Anemia type: due to chronic kidney disease Chronic kidney disease stage: stage 4 (severe) Qualified Code(s): N18.4 - Chronic kidney disease, stage 4 ( severe); D63.1 - Anemia in chronic kidney disease; D63.1 - Anemia in chronic kidney disease (2) History of DVT (deep vein thrombosis) Current Visit: No Status: Chronic Assessment and plan: Patient is known to have a history of a DVT. Patient was on Coumadin. Presently patient is on Coumadin and hold due to the possibility of underlying GI bleed. (3) DM (diabetes mellitus), type 2 Current Visit: No Status: Chronic Assessment and plan: per hx. Blood sugars variable but acceptable. SSI. 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 Cr at baseline. Avoid nephrotoxic agents as possible. Cont to monitor Qualifiers: Chronic kidney disease stage: stage 3 (moderate) Qualified Code(s): N18.3 - Chronic kidney disease, stage 3 (moderate) - Subjective Interval history: Patient seen and examined. Chart reviewed. Patient is comfortably lying in bed. Patient is scheduled for endoscopy procedure today. - Constitutional Vitals: Temp Pulse Resp BP Pulse Ox 97.4 F L 77 16 156/75 96 01/10/17 13:00 01/10/17 13:00 01/10/17 13:00 01/10/17 13:00 01/10/17 13:00 General appearance: Present: A&O X 3, morbidly obese, no acute distress, answers questions appropriately - Head Head exam: Present: atraumatic, normocephalic - Eye Eye exam: Present: PERRL, conjuntiva pink, sclera anicteric Pupils: Present: PERRL - Neck Neck exam general surgery: Present: supple, trachea midline. Absent: lymphadenopathy - Respiratory Respiratory exam: Present: CTAB. Absent: accessory muscle use, rales, rhonchi, wheezes - Cardiovascular Cardiovascular exam: Present: RRR, +S1, +S2. Absent: diastolic murmur, gallop, rubs, systolic murmur - GI/Abdominal GI/Abdominal exam: Present: normal bowel sounds, soft, no peritoneal signs. Absent: distended, tenderness - Extremities Exam Extremities exam: Present: warm, radial pulses palpable and symmetrical. Absent : calf tenderness, cyanotic, pedal edema - Neurological Exam Neurological exam: Present: CN II-XII intact, oriented X3, no focal deficits. Absent: pronater drift, facial droop, speech deficit - Skin Skin exam: Present: dry, intact Internal Medicine: Result - Labs CBC & Chem 7: 01/10/17 05:24 01/10/17 05:24 Labs: Short CBC 01/09/17 01/10/17 Range/Units 20:45 05:24 WBC 5.8 (4.3-11.1) K/mcL Hgb 9.4 L 8.5 L (11.5-15.4) g/dL Hct 30.4 L 28.1 L (35.3-44.9) % Plt Count 249 (140-400) K/mcL [facility] 01/10/17 05:24 Sodium 141 Potassium 4.0 Chloride 106 Carbon Dioxide 26 BUN 34 H Creatinine 2.38 H Glucose 143 H Calcium 8.6 - ABG Interpretation ABG results: PT/INR, D-dimer PT 15.2 Seconds (9.4-12.1) H 01/08/17 04:07 Consult Discharge Plan - Plan Referrals: Cornell Genao MD [Partnered Physician] - (Need ouptatient follow up for polyps in colon. Patient and colonoscopy which showed polyps which were not removed due to patient being on plavix. Family history of colon cancer ) Mauro Dockery MD [Primary Care Provider] -
[2017-01-10] MEDS: Furosemide 40 MG TABLET PO SCH ×2 (14:47→20:45)
[2017-01-10] MEDS: Insulin DETEMIR 100 UNIT/ML X5UNITS SQ SCH ×2 (14:47→20:45)
[2017-01-10] MEDS: Gabapentin 100 MG CAPSULE PO SCH ×3 (14:47→20:45)
[2017-01-10] MEDS: Nystatin POWDER 30 GM BOTTLE TP SCH ×4 (14:48→20:46)
[2017-01-10] MEDS: Metoprolol XL (24 HR) Succ 25 MG TAB.ER.24H PO SCH (14:57)
[2017-01-10] MEDS: predniSONE 20 MG TABLET PO SCH (14:57)
[2017-01-10] MEDS: amLODIPine 5 MG TABLET PO SCH (14:58)
[2017-01-10] MEDS: Isosorbide MONOnitrate (24 HR) 30 MG TAB.ER.24H PO SCH (17:15)
[2017-01-10] MEDS: clonazePAM 1 MG TABLET PO SCH (20:45)
[2017-01-11] MEDS: Albuterol Neb 1.25 MG/3 ML VIAL IH SCH ×2 (04:07→11:43)
[2017-01-11 05:01] LABS: Albumin/Globulin Ratio 0.5 (1.1-2.2); Basophils % 0.3 %; Bilirubin,Total 0.2 mg/dL (0.2-1.2); Calcium 8.6 mg/dL (8.6-10.8); Eosinophils % 0.2 %; Globulin 4.2 g/dL (2.4-3.5); Hematocrit 27.7 % (35.3-44.9); Hemoglobin 8.3 g/dL (11.5-15.4); Immature Granulocytes % 0.7 % (0-4); Lymphocytes # 0.7 K/mcL (0.6-4.6); Lymphocytes % 11.6 %; Mean Corpuscular Hemoglobin 28.8 pg (28.0-33.3); Mean Corpuscular Volume 96.2 fL (83.0-100.0); Monocytes # 0.2 K/mcL (0.0-1.3); Monocytes % 3.7 %; Neutrophils # 4.9 K/mcL (1.6-8.9); Platelet Count 257 K/mcL (140-400); Red Blood Count 2.88 M/mcL (3.82-4.97); Red Cell Distribution Width 16.5 % (11.5-14.5); Segmented Neutrophils % 83.5 %; Total Protein 6.2 g/dL (6.0-8.3)
[2017-01-11 05:04] LABS: Potassium 4.9 mEq/L (3.5-4.5)
[2017-01-11] MEDS: Insulin LISPRO 300 UNITS/3 ML VIAL SQ SCH (08:37)
[2017-01-11] MEDS: Insulin DETEMIR 100 UNIT/ML X5UNITS SQ SCH (08:37)
[2017-01-11] MEDS: Gabapentin 100 MG CAPSULE PO SCH (08:38)
[2017-01-11] MEDS: Furosemide 40 MG TABLET PO SCH (08:38)
[2017-01-11] MEDS: Metoprolol XL (24 HR) Succ 25 MG TAB.ER.24H PO SCH (08:38)
[2017-01-11] MEDS: predniSONE 20 MG TABLET PO SCH (08:39)
[2017-01-11] MEDS: amLODIPine 5 MG TABLET PO SCH (08:39)
[2017-01-11] MEDS: Nystatin POWDER 30 GM BOTTLE TP SCH (08:42)
--- NOTE | 2017-01-11 11:36 | Discharge Summary ---
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 insulin 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: with custodial use Qualified Code(s): E11.65 - Type 2 diabetes mellitus with hyperglycemia; Z79.4 - nurse practical (current) use of insulin (4) CKD (chronic kidney disease) Priority: Secondary Status: Chronic Qualifiers: Chronic kidney disease stage: stage 3 (moderate) Qualified Code(s): N18.3 - Chronic kidney disease, stage 3 (moderate) - Discharge Medications Prescriptions: Ferrous Sulfate 325 mg PO BIDWM #60 tablet Home Medications: Cyclobenzaprine [Flexeril] 10 mg PO TID 09/12/14 [History] Docusate [Colace] 100 mg PO TID 09/12/14 [History] Doxepin [Sinequan] 50 mg PO HS 09/12/14 [History] Meclizine [Antivert] 25 mg PO TID 09/12/14 [History] Allopurinol [Zyloprim 100 MG] 100 mg PO DAILY 03/22/15 [History] DiphenhydraMINE [Benadryl] 25 mg PO TID 03/22/15 [History] Exenatide Microspheres [Bydureon Pen] 2 mg SQ MO 03/22/15 [History] Lidocaine Patch [Lidoderm 5% patch] 1 - 3 patch TP DAILY 03/22/15 [History] Nitroglycerin [Nitrostat] 0.4 mg SL Q5M PRN 03/22/15 [History] Promethazine [Phenergan] 25 mg PO TID 03/22/15 [History] clonazePAM [Klonopin] 1 mg PO HS 03/22/15 [History] Metoprolol XL (24 HR) Succ [Toprol Xl] 25 mg PO DAILY 07/31/15 [History] Furosemide [Lasix] 40 mg PO BID 03/02/16 [History] Albuterol Neb [AccuNeb] 1.25 mg IH QID PRN 05/06/16 [History] Levothyroxine [Synthroid] 250 mcg PO QAM 05/06/16 [History] Nystatin POWDER [Nystop] 1 appl TP QID 05/06/16 [History] Rosuvastatin [Crestor] 20 mg PO HS 05/06/16 [History] Acetaminophen [Tylenol] 650 mg PO Q4-6H 11/10/16 [History] Omeprazole [PriLOSEC] 40 mg PO DAILY 11/10/16 [History] Isosorbide MONOnitrate (24 HR) [Imdur] 60 mg PO QPM #30 tab.er.24h 11/11/16 [Rx] Potassium Chloride [Klor-Con 10] 10 meq PO BID 11/11/16 [History] Gabapentin [Neurontin] 100 mg PO TID #90 capsule 11/27/16 [Rx] Insulin DETEMIR [Levemir] 100 unit SQ BID #2 vial 11/27/16 [Rx] Insulin LISPRO [HumaLOG] 18 units SQ TIDWM #2 vial 11/27/16 [Rx] Warfarin [Coumadin] 3 mg PO 1800 #5 tablet 11/27/16 [Rx] predniSONE [PredniSONE] 40 mg PO DAILY #10 tablet 11/27/16 [Rx] amLODIPine [Norvasc] 5 mg PO DAILY 01/07/17 [History] Ferrous Sulfate 325 mg PO BIDWM #60 tablet 01/11/17 [Rx] Allergies/Adverse Reactions: 3 Allergy/AdvReac Type Severity Reaction Status Date / Time aspirin Allergy Hives Verified 01/07/17 18:11 cephalexin [From Keflex] Allergy Difficulty Verified 01/07/17 18:11 Breathing codeine Allergy Hypertensio Verified 01/07/17 18:11 n Cortisone Allergy See Verified 01/07/17 18:11 Comments hydrocortisone Allergy Hypertensio Verified 01/07/17 18:11 n ibuprofen Allergy Hives Verified 01/07/17 18:11 Iodinated Contrast- Oral and Allergy See Verified 01/07/17 18:11 IV Dye Comments [Iodinated Contrast Media - IV Dye] lidocaine [From Xylocaine] Allergy See Verified 01/07/17 18:11 Comments loratadine [From Claritin] Allergy Hives Verified 01/07/17 18:11 methylprednisolone Allergy Hypertensio Verified 01/07/17 18:11 [From Solu-Medrol] n Penicillins Allergy See Verified 01/07/17 18:11 Comments prednisone Allergy Hypertensio Verified 01/07/17 18:11 n Procaine [From Novocain] Allergy See Verified 01/07/17 18:11 Comments propoxyphene [From Darvon] Allergy See Verified 01/07/17 18:11 Comments pseudoephedrine Allergy Hives Verified 01/07/17 18:11 [From Sudafed] ropinirole [From Requip] Allergy See Verified 01/07/17 18:11 Comments tramadol AdvReac See Verified 01/07/17 18:11 Comments Date of admission: 01/07/17 18:25 Primary care physician: Mauro Dockery MD Consults: 01/07/17 20:14 Consult to Physician [CONS] Routine Consulting Provider: Cornell Genao Reason for Consult: Rectal bleed; symptomatic anemia Call Completed: No 01/07/17 20:27 Consult to Technical Aid [CONS] Routine Reason for SW Consult: Discharge Plannng. Has H.H. with [facility] Discharging clinician: Logan Dhaliwal - Patient Status Disposition: Home Health Service Condition: Serious Functional capacity at discharge: uses cane/walker Overall status at discharge: patient is progressing back to baseline - Discharge Instructions Instructions: Iron Supplements (By mouth), Acute Kidney Injury (DC), Using Oxygen at Home (DC) Follow Up With: Cornell Genao MD [Partnered Physician] - (Need ouptatient follow up for polyps in colon. Patient and colonoscopy which showed polyps which were not removed due to patient being on plavix. Family history of colon cancer ) Mauro Dockery MD [Primary Care Provider] - (Appointment has been webrequested. Our offices will call you with a follow up appointment time and date. Thank You. ) - Diet and Activity Activity: increase activity as tolerated Diet: low fat, low cholesterol, low salt diet Interval History: Ms. Mars is a 61 year old female with a 2-3 day history of profound weakness , lightheadedness, and fatigue. She had been having some rectal bleeding the last few days, and she attributed this to her hemorrhoids. She has not had a colonoscopy in over 10 years. She takes Coumadin for prior history of DVT roughly 20 years ago. She does have an IVC filter in place. She also has anemia of chronic kidney disease, but her hemoglobin is lower than her baseline and, given the above symptoms, she was admitted to hospitalist service. Hospital course: patient was hospitalized. PRBC were transfused. patient tolerated transfusion well. GI was consulted. Patient underwent colonoscopy. multiple polyps were noted but no biopsies done in view of underlying anticoagulation. Patient's HB and Hct is stable and she is keen to go home today. plan home today. follow up with PCP within 1 week. follow up with GI in 1 week to schedule outpatient colonoscopy. - Time Spent with Patient Total time spent providing and/or coordinating discharge services: - Constitutional Vitals: Temp Pulse Resp BP Pulse Ox 98.8 F 86 17 164/70 95 01/11/17 07:02 01/11/17 07:02 01/11/17 07:02 01/11/17 07:02 01/11/17 07:02 General appearance: Present: A&O X 3, morbidly obese, no acute distress, answers questions appropriately - Head Head exam: Present: atraumatic, normocephalic - Eye Eye exam: Present: PERRL, conjuntiva pink, sclera anicteric Pupils: Present: PERRL - Neck Neck exam general surgery: Present: supple, trachea midline. Absent: lymphadenopathy - Respiratory Respiratory exam: Present: CTAB. Absent: accessory muscle use, rales, rhonchi, wheezes - Cardiovascular Cardiovascular exam: Present: RRR, +S1, +S2. Absent: diastolic murmur, gallop, rubs, systolic murmur - GI/Abdominal GI/Abdominal exam: Present: normal bowel sounds, soft, no peritoneal signs. Absent: distended, tenderness - Extremities Exam Extremities exam: Present: warm, radial pulses palpable and symmetrical. Absent : calf tenderness, cyanotic, pedal edema - Neurological Exam Neurological exam: Present: CN II-XII intact, oriented X3, no focal deficits. Absent: pronater drift, facial droop, speech deficit - Skin Skin exam: Present: dry, intact
--- NOTE | 2017-01-11 11:46 | Physician Discharge Referral ---
Home Health/Hosp Referral Info Transfer to: Home Health - Diagnosis (1) Anemia Priority: Primary Status: Acute (2) History of DVT (deep vein thrombosis) Priority: Secondary Status: Chronic (3) DM (diabetes mellitus), type 2 Priority: Secondary Status: Chronic (4) CKD (chronic kidney disease) Priority: Secondary Status: Chronic - Respiratory Orders Smoking Cessation: Smoking cessation has been advised. For more information, call the [place] Tobacco Quit Line at 7-363-OQOB-NOW. - Activity Activity Orders: Walker - Services Needed Following services are medically necessary services: Physical Therapy, Med Social Work - Transfer Medications Prescriptions: Ferrous Sulfate 325 mg PO BIDWM #60 tablet Home Medications: Cyclobenzaprine [Flexeril] 10 mg PO TID 09/12/14 [History] Docusate [Colace] 100 mg PO TID 09/12/14 [History] Doxepin [Sinequan] 50 mg PO HS 09/12/14 [History] Meclizine [Antivert] 25 mg PO TID 09/12/14 [History] Allopurinol [Zyloprim 100 MG] 100 mg PO DAILY 03/22/15 [History] DiphenhydraMINE [Benadryl] 25 mg PO TID 03/22/15 [History] Exenatide Microspheres [Bydureon Pen] 2 mg SQ MO 03/22/15 [History] Lidocaine Patch [Lidoderm 5% patch] 1 - 3 patch TP DAILY 03/22/15 [History] Nitroglycerin [Nitrostat] 0.4 mg SL Q5M PRN 03/22/15 [History] Promethazine [Phenergan] 25 mg PO TID 03/22/15 [History] clonazePAM [Klonopin] 1 mg PO HS 03/22/15 [History] Metoprolol XL (24 HR) Succ [Toprol Xl] 25 mg PO DAILY 07/31/15 [History] Furosemide [Lasix] 40 mg PO BID 03/02/16 [History] Albuterol Neb [AccuNeb] 1.25 mg IH QID PRN 05/06/16 [History] Levothyroxine [Synthroid] 250 mcg PO QAM 05/06/16 [History] Nystatin POWDER [Nystop] 1 appl TP QID 05/06/16 [History] Rosuvastatin [Crestor] 20 mg PO HS 05/06/16 [History] Acetaminophen [Tylenol] 650 mg PO Q4-6H 11/10/16 [History] Omeprazole [PriLOSEC] 40 mg PO DAILY 11/10/16 [History] Isosorbide MONOnitrate (24 HR) [Imdur] 60 mg PO QPM #30 tab.er.24h 11/11/16 [Rx] Potassium Chloride [Klor-Con 10] 10 meq PO BID 11/11/16 [History] Gabapentin [Neurontin] 100 mg PO TID #90 capsule 11/27/16 [Rx] Insulin DETEMIR [Levemir] 100 unit SQ BID #2 vial 11/27/16 [Rx] Insulin LISPRO [HumaLOG] 18 units SQ TIDWM #2 vial 11/27/16 [Rx] Warfarin [Coumadin] 3 mg PO 1800 #5 tablet 11/27/16 [Rx] predniSONE [PredniSONE] 40 mg PO DAILY #10 tablet 11/27/16 [Rx] amLODIPine [Norvasc] 5 mg PO DAILY 01/07/17 [History] Ferrous Sulfate 325 mg PO BIDWM #60 tablet 01/11/17 [Rx] Allergies/Adverse Reactions: 3 Allergy/AdvReac Type Severity Reaction Status Date / Time aspirin Allergy Hives Verified 01/07/17 18:11 cephalexin [From Keflex] Allergy Difficulty Verified 01/07/17 18:11 Breathing codeine Allergy Hypertensio Verified 01/07/17 18:11 n Cortisone Allergy See Verified 01/07/17 18:11 Comments hydrocortisone Allergy Hypertensio Verified 01/07/17 18:11 n ibuprofen Allergy Hives Verified 01/07/17 18:11 Iodinated Contrast- Oral and Allergy See Verified 01/07/17 18:11 IV Dye Comments [Iodinated Contrast Media - IV Dye] lidocaine [From Xylocaine] Allergy See Verified 01/07/17 18:11 Comments loratadine [From Claritin] Allergy Hives Verified 01/07/17 18:11 methylprednisolone Allergy Hypertensio Verified 01/07/17 18:11 [From Solu-Medrol] n Penicillins Allergy See Verified 01/07/17 18:11 Comments prednisone Allergy Hypertensio Verified 01/07/17 18:11 n Procaine [From Novocain] Allergy See Verified 01/07/17 18:11 Comments propoxyphene [From Darvon] Allergy See Verified 01/07/17 18:11 Comments pseudoephedrine Allergy Hives Verified 01/07/17 18:11 [From Sudafed] ropinirole [From Requip] Allergy See Verified 01/07/17 18:11 Comments tramadol AdvReac See Verified 01/07/17 18:11 Comments Certification: Further, I certify that my clinical findings support that this patient is homebound (i.e. absences from home require considerable and taxing effort and are for medical reasons or restoration services or infrequently or short duration when for other reasons) because: Homebound Reason: Post-surgery restriction and or conditions limit ability to leave home Attestation: My signature below is to certify that this patient is under my care and that I, or nurse practitioner, or a physician's secretary administrative assistant working with me, has a face-to -face encounter with this patient.
[2017-01-11 11:52] VITALS: BP 150/66
== END 2017-01-11 13:15 | disposition home health service (06) ==
LOC: 3BNU 14:44 → EMEROO 14:44 → 3BNU 19:00
PROVIDERS: ADMIT Internal Medicine; ATTEND Registered Nurse

== ENCOUNTER 2017-01-13 22:35 | Inpatient (IN) ==
[2017-01-13] MEDS ORDERED: 0.9 % Sodium Chloride 1,000 ML IVC ONE (23:14)
[2017-01-13 23:21] LABS: Basophils % 0.1 %; Eosinophils # 0.2 K/mcL (0.0-0.6); Eosinophils % 2.5 %; Hematocrit 31.5 % (35.3-44.9); Hemoglobin 9.3 g/dL (11.5-15.4); Immature Granulocytes % 0.9 % (0-4); Lymphocytes # 0.9 K/mcL (0.6-4.6); Lymphocytes % 11.5 %; Mean Corpuscular HGB Conc 29.5 g/dL (31.6-35.5); Mean Corpuscular Hemoglobin 28.4 pg (28.0-33.3); Mean Corpuscular Volume 96.3 fL (83.0-100.0); Mean Platelet Volume 9.2 fL (9.4-12.4); Monocytes # 0.7 K/mcL (0.0-1.3); Monocytes % 8.3 %; Neutrophils # 6.2 K/mcL (1.6-8.9); Platelet Count 261 K/mcL (140-400); Red Blood Count 3.27 M/mcL (3.82-4.97); Red Cell Distribution Width 16.3 % (11.5-14.5); Segmented Neutrophils % 76.7 %
[2017-01-13 23:29] LABS: INR 1.1; Prothrombin Time 12.2 Seconds (9.4-12.1)
[2017-01-13 23:31] LABS: Activated Partial Thrombo Time 31.9 Seconds (26.0-36.0)
--- NOTE | 2017-01-13 23:34 | Emergency Department Note ---
Disposition Clinical Impression: Hypoxia, Weakness, Elevated troponin I level [id number] kidney injury Qualifiers: Acute renal failure type: unspecified Chronic kidney disease stage: stage 4 ( severe) Qualified Code(s): N17.9 - Acute kidney failure, unspecified Disposition: Admitted As Inpatient Condition: Fair Time of Disposition: 01:41 General Adult HPI - General Chief complaint: ED Weakness Time Seen by Provider: 01/13/17 22:41 Source: patient Limitations: no limitations Nursing Notes Reviewed: Yes Vital Signs Reviewed: Yes - History of Present Illness HPI Narrative: CC 1-year-old female with hypertension, diabetes, and generalized weakness for the last several days, she was just seen in the hospital a few days ago treated for anemia and generalized weakness, she comes in by ambulance. Patient is markedly short of breath she is chronically on oxygen 2 L at baseline. Previous hospitalization shows that she was transfused due to symptomatically anemia with a hemoglobin of 8.3, she also has anticoagulation with Coumadin and IVC filter Onset (ago): day(s) Pain Severity: moderate Pain Scale: 5 Quality: aching Consistency: intermittent Improves with: nothing Associated symptoms: Reports: cough, nausea/vomiting, weakness. Denies: chest pain - Related Data Home Medications Medication Instructions Recorded Confirmed Cyclobenzaprine [Flexeril] 10 mg PO TID 09/12/14 01/07/17 Docusate [Colace] 100 mg PO TID 09/12/14 01/07/17 Doxepin [Sinequan] 50 mg PO HS 09/12/14 01/07/17 Meclizine [Antivert] 25 mg PO TID 09/12/14 01/07/17 Allopurinol [Zyloprim 100 MG] 100 mg PO DAILY 03/22/15 01/07/17 DiphenhydraMINE [Benadryl] 25 mg PO TID 03/22/15 01/07/17 Exenatide Microspheres [Bydureon 2 mg SQ MO 03/22/15 01/07/17 Pen] Lidocaine Patch [Lidoderm 5% patch] 1 - 3 patch TP DAILY 03/22/15 01/07/17 Nitroglycerin [Nitrostat] 0.4 mg SL Q5M PRN 03/22/15 01/07/17 Promethazine [Phenergan] 25 mg PO TID 03/22/15 01/07/17 clonazePAM [Klonopin] 1 mg PO HS 03/22/15 01/07/17 Metoprolol XL (24 HR) Succ [Toprol 25 mg PO DAILY 07/31/15 01/07/17 Xl] Furosemide [Lasix] 40 mg PO BID 03/02/16 01/07/17 Albuterol Neb [AccuNeb] 1.25 mg IH QID PRN 05/06/16 01/07/17 Levothyroxine [Synthroid] 250 mcg PO QAM 05/06/16 01/07/17 Nystatin POWDER [Nystop] 1 appl TP QID 05/06/16 01/07/17 Rosuvastatin [Crestor] 20 mg PO HS 05/06/16 01/07/17 Acetaminophen [Tylenol] 650 mg PO Q4-6H 11/10/16 01/07/17 Omeprazole [PriLOSEC] 40 mg PO DAILY 11/10/16 01/07/17 Potassium Chloride [Klor-Con 10] 10 meq PO BID 11/11/16 01/07/17 amLODIPine [Norvasc] 5 mg PO DAILY 01/07/17 01/07/17 Previous Rx's Medication Instructions Recorded Isosorbide MONOnitrate (24 HR) 60 mg PO QPM #30 tab.er.24h 11/11/16 [Imdur] Gabapentin [Neurontin] 100 mg PO TID #90 capsule 11/27/16 Insulin DETEMIR [Levemir] 100 unit SQ BID #2 vial 11/27/16 Insulin LISPRO [HumaLOG] 18 units SQ TIDWM #2 vial 11/27/16 Warfarin [Coumadin] 3 mg PO 1800 #5 tablet 11/27/16 predniSONE [PredniSONE] 40 mg PO DAILY #10 tablet 11/27/16 Ferrous Sulfate 325 mg PO BIDWM #60 tablet 01/11/17 Allergies Allergy/AdvReac Type Severity Reaction Status Date / Time aspirin Allergy Hives Verified 01/07/17 18:11 cephalexin [From Keflex] Allergy Difficulty Verified 01/07/17 18:11 Breathing codeine Allergy Hypertensio Verified 01/07/17 18:11 n Cortisone Allergy See Verified 01/07/17 18:11 Comments hydrocortisone Allergy Hypertensio Verified 01/07/17 18:11 n ibuprofen Allergy Hives Verified 01/07/17 18:11 Iodinated Contrast- Oral and Allergy See Verified 01/07/17 18:11 IV Dye Comments [Iodinated Contrast Media - IV Dye] lidocaine [From Xylocaine] Allergy See Verified 01/07/17 18:11 Comments loratadine [From Claritin] Allergy Hives Verified 01/07/17 18:11 methylprednisolone Allergy Hypertensio Verified 01/07/17 18:11 [From Solu-Medrol] n Penicillins Allergy See Verified 01/07/17 18:11 Comments prednisone Allergy Hypertensio Verified 01/07/17 18:11 n Procaine [From Novocain] Allergy See Verified 01/07/17 18:11 Comments propoxyphene [From Darvon] Allergy See Verified 01/07/17 18:11 Comments pseudoephedrine Allergy Hives Verified 01/07/17 18:11 [From Sudafed] ropinirole [From Requip] Allergy See Verified 01/07/17 18:11 Comments tramadol AdvReac See Verified 01/07/17 18:11 Comments All systems ED: reviewed and negative except as stated. Review of Systems: As Per HPI Constitutional: Denies: fever, chills Eyes: Denies: eye pain ENT ED: Denies: ear pain Cardiovascular: Denies: chest pain Respiratory: Reports: cough Gastrointestinal: Reports: nausea. Denies: abdominal pain Genitourinary: Denies: urgency, dysuria Musculoskeletal: Denies: back pain, neck pain Integumentary: Denies: rash Neurological: Reports: as per HPI, weakness Past Medical History - Past Medical History Attestation: Yes The following information was validated with the patient. 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 - Social History Smoking Status: Former smoker Smokeless Tobacco Status: No Alcohol use: Reports: none Drug use: Reports: none Physical Exam Constitutional: Obese female hypoxic on 2 L satting 74-80% Eyes: PERRLA, sclera anicteric ENT & Mouth: MM dry Neck: normal inspection, neck is supple Resp: Diminished breath sounds bilaterally CV: RRR, no m/g/r GI: normal inspection, soft,morbidly obese, no guarding or rigidity Neuro: A&O3, CNII-XII grossly intact, HOWARD Skin: on limited exam, skin intact with no rashes or lesions - General Limitations: no limitations General appearance: alert Course Course Narrative: 61-year-old female markedly short of breath, she does have a recent hospitalization and also several episodes of loose stool patient's given a CBC BMP troponin EKG chest x-ray basic lab work urinalysis also checking blood cultures and lactate. She was recently hospitalized and C. difficile. - Reevaluation(s) Reevaluation #1: Patient with marked hypoxia satting in the 74% on 3-4 L, she is on home 2 L, he sat her up and this seemed to improve her symptoms, placed on BiPAP she is on CPAP at night, this improved her symptoms as well. possible effusion, she was initially given fluids for dehydration these were stopped, patient will be admitted to the floor for generalized weakness, hypoxia. Anemia is not worse than her baseline chronic kidney disease. Time: 01:40 Vital Signs Temperature 97.5 F L 01/13/17 22:46 Pulse Rate 81 01/13/17 22:46 Respiratory Rate 20 01/13/17 22:46 Blood Pressure 191/81 01/13/17 22:46 O2 Sat by Pulse Oximetry 95 01/13/17 22:46 Temperature 97.5 F L 01/13/17 22:46 Pulse Rate 76 01/14/17 01:57 Respiratory Rate 17 01/14/17 01:57 Blood Pressure 186/100 01/14/17 01:57 O2 Sat by Pulse Oximetry 100 01/14/17 01:57 Oxygen Delivery Oxygen Delivery Bipap Medical Decision Making - MDM Narrative Medical decision making narrative: Due to the hospitalist, discussed in. Treatment for C. difficile given loose stool, also the patient will be given aspirin as she has no elevated troponin likely this is from demand ischemia and no EKG changes - Medical Records Medical records reviewed: Yes I reviewed the patient's medical records. - Lab Data Lab results reviewed: Yes I reviewed the patient's lab results. Result diagrams: 01/13/17 23:17 01/13/17 23:17 Lab Results 01/13/17 01/13/17 01/13/17 Range/Units 23:17 23:17 23:17 WBC 8.1 (4.3-11.1) K/mcL RBC 3.27 L (3.82-4.97) M/mcL Hgb 9.3 L (11.5-15.4) g/dL Hct 31.5 L (35.3-44.9) % MCV 96.3 (83.0-100.0) fL MCH 28.4 (28.0-33.3) pg MCHC 29.5 L (31.6-35.5) g/dL RDW 16.3 H (11.5-14.5) % Plt Count 261 (140-400) K/mcL MPV 9.2 L (9.4-12.4) fL Immature Gran % 0.9 (0-4) % Seg Neutrophils % 76.7 % Lymphocytes % 11.5 % Monocytes % 8.3 % Eosinophils % 2.5 % Basophils % 0.1 % Neutrophils # 6.2 (1.6-8.9) K/mcL Lymphocytes # 0.9 (0.6-4.6) K/mcL Monocytes # 0.7 (0.0-1.3) K/mcL Eosinophils # 0.2 (0.0-0.6) K/mcL Basophils # 0.0 (0.0-0.2) K/mcL PT 12.2 H (9.4-12.1) Seconds INR 1.1 APTT 31.9 (26.0-36.0) Seconds VBG pH (7.32-7.42) pH Units VBG pCO2 (41-51) mmHg VBG pO2 (25-50) mmHg VBG HCO3 (21-27) mEq/L Sodium 145 (136-145) mEq/L Potassium 3.8 D (3.5-4.5) mEq/L Chloride 104 (98-109) mEq/L Carbon Dioxide 29 (19-29) mEq/L BUN 37 H (7-20) mg/dL Creatinine 2.17 H (0.57-1.11) mg/dL Est GFR ( Amer) 28 L (> 60) Est GFR (Non-Af Amer) 23 L (> 60) BUN/Creatinine Ratio 17 (6-26) Glucose 58 L (70-99) mg/dL Calculated Osmolality 306 H (280-300) Lactic Acid (0.5-2.2) mmol/L Calcium 8.7 (8.6-10.8) mg/dL Total Bilirubin 0.5 (0.2-1.2) mg/dL Direct Bilirubin 0.2 (0.0-0.5) mg/dL Indirect Bilirubin 0.3 (0.0-1.2) mg/dL AST 9 (5-34) Units/L ALT 11 (0-55) Units/L Alkaline Phosphatase 110 (38-126) Units/L Troponin I (0-0.03) ng/mL B-Natriuretic Peptide (0-100) pg/mL Serum Total Protein 6.8 (6.0-8.3) g/dL Albumin 2.4 L (3.5-5.0) g/dL Globulin 4.4 H (2.4-3.5) g/dL Albumin/Globulin Ratio 0.5 L (1.1-2.2) Lipase < 10 (8-78) Units/L Urine Color (Yellow) Urine Clarity (Clear) Urine pH (5.0-8.0) pH Units Ur Specific [place] (1.010-1.025) Urine Protein (Neg-Trace) mg/dL Urine Glucose (UA) (Normal) mg/dL Urine Ketones (Negative) mg/dL Urine Blood (Negative) Urine Nitrite (Negative) Urine Bilirubin (Negative) Urine Urobilinogen (Normal) mg/dL Ur Leukocyte Esterase (Negative) Urine Microscopic RBC (0-3) per hpf Urine Microscopic WBC (0-3) per hpf Ur Squamous Epith Cells (None-Few) per lpf Urine Bacteria (None-Few) per hpf Hyaline Casts Ur Culture Indicated? (NO) 01/13/17 01/13/17 01/14/17 Range/Units 23:17 23:50 00:44 WBC (4.3-11.1) K/mcL RBC (3.82-4.97) M/mcL Hgb (11.5-15.4) g/dL Hct (35.3-44.9) % MCV (83.0-100.0) fL MCH (28.0-33.3) pg MCHC (31.6-35.5) g/dL RDW (11.5-14.5) % Plt Count (140-400) K/mcL MPV (9.4-12.4) fL Immature Gran % (0-4) % Seg Neutrophils % % Lymphocytes % % Monocytes % % Eosinophils % % Basophils % % Neutrophils # (1.6-8.9) K/mcL Lymphocytes # (0.6-4.6) K/mcL Monocytes # (0.0-1.3) K/mcL Eosinophils # (0.0-0.6) K/mcL Basophils # (0.0-0.2) K/mcL PT (9.4-12.1) Seconds INR APTT (26.0-36.0) Seconds VBG pH (7.32-7.42) pH Units VBG pCO2 (41-51) mmHg VBG pO2 (25-50) mmHg VBG HCO3 (21-27) mEq/L Sodium (136-145) mEq/L Potassium (3.5-4.5) mEq/L Chloride (98-109) mEq/L Carbon Dioxide (19-29) mEq/L BUN (7-20) mg/dL Creatinine (0.57-1.11) mg/dL Est GFR ( Amer) (> 60) Est GFR (Non-Af Amer) (> 60) BUN/Creatinine Ratio (6-26) Glucose (70-99) mg/dL Calculated Osmolality (280-300) Lactic Acid 1.0 (0.5-2.2) mmol/L Calcium (8.6-10.8) mg/dL Total Bilirubin (0.2-1.2) mg/dL Direct Bilirubin (0.0-0.5) mg/dL Indirect Bilirubin (0.0-1.2) mg/dL AST (5-34) Units/L ALT (0-55) Units/L Alkaline Phosphatase (38-126) Units/L Troponin I 0.05 H* (0-0.03) ng/mL B-Natriuretic Peptide 472 H (0-100) pg/mL Serum Total Protein (6.0-8.3) g/dL Albumin (3.5-5.0) g/dL Globulin (2.4-3.5) g/dL Albumin/Globulin Ratio (1.1-2.2) Lipase (8-78) Units/L Urine Color (Yellow) Urine Clarity (Clear) Urine pH (5.0-8.0) pH Units Ur Specific [place] (1.010-1.025) Urine Protein (Neg-Trace) mg/dL Urine Glucose (UA) (Normal) mg/dL Urine Ketones (Negative) mg/dL Urine Blood (Negative) Urine Nitrite (Negative) Urine Bilirubin (Negative) Urine Urobilinogen (Normal) mg/dL Ur Leukocyte Esterase (Negative) Urine Microscopic RBC (0-3) per hpf Urine Microscopic WBC (0-3) per hpf Ur Squamous Epith Cells (None-Few) per lpf Urine Bacteria (None-Few) per hpf Hyaline Casts Ur Culture Indicated? (NO) 01/14/17 01/14/17 Range/Units 00:56 01:15 WBC (4.3-11.1) K/mcL RBC (3.82-4.97) M/mcL Hgb (11.5-15.4) g/dL Hct (35.3-44.9) % MCV (83.0-100.0) fL MCH (28.0-33.3) pg MCHC (31.6-35.5) g/dL RDW (11.5-14.5) % Plt Count (140-400) K/mcL MPV (9.4-12.4) fL Immature Gran % (0-4) % Seg Neutrophils % % Lymphocytes % % Monocytes % % Eosinophils % % Basophils % % Neutrophils # (1.6-8.9) K/mcL Lymphocytes # (0.6-4.6) K/mcL Monocytes # (0.0-1.3) K/mcL Eosinophils # (0.0-0.6) K/mcL Basophils # (0.0-0.2) K/mcL PT (9.4-12.1) Seconds INR APTT (26.0-36.0) Seconds VBG pH 7.47 H (7.32-7.42) pH Units VBG pCO2 36 L (41-51) mmHg VBG pO2 218 H (25-50) mmHg VBG HCO3 26 (21-27) mEq/L Sodium (136-145) mEq/L Potassium (3.5-4.5) mEq/L Chloride (98-109) mEq/L Carbon Dioxide (19-29) mEq/L BUN (7-20) mg/dL Creatinine (0.57-1.11) mg/dL Est GFR ( Amer) (> 60) Est GFR (Non-Af Amer) (> 60) BUN/Creatinine Ratio (6-26) Glucose (70-99) mg/dL Calculated Osmolality (280-300) Lactic Acid (0.5-2.2) mmol/L Calcium (8.6-10.8) mg/dL Total Bilirubin (0.2-1.2) mg/dL Direct Bilirubin (0.0-0.5) mg/dL Indirect Bilirubin (0.0-1.2) mg/dL AST (5-34) Units/L ALT (0-55) Units/L Alkaline Phosphatase (38-126) Units/L Troponin I (0-0.03) ng/mL B-Natriuretic Peptide (0-100) pg/mL Serum Total Protein (6.0-8.3) g/dL Albumin (3.5-5.0) g/dL Globulin (2.4-3.5) g/dL Albumin/Globulin Ratio (1.1-2.2) Lipase (8-78) Units/L Urine Color Yellow (Yellow) Urine Clarity Turbid A (Clear) Urine pH 6.0 (5.0-8.0) pH Units Ur Specific [place] 1.018 (1.010-1.025) Urine Protein >=300 H (Neg-Trace) mg/dL Urine Glucose (UA) Normal (Normal) mg/dL Urine Ketones Negative (Negative) mg/dL Urine Blood Moderate H (Negative) Urine Nitrite Negative (Negative) Urine Bilirubin Negative (Negative) Urine Urobilinogen Normal (Normal) mg/dL Ur Leukocyte Esterase Trace H (Negative) Urine Microscopic RBC 15-30 H (0-3) per hpf Urine Microscopic WBC 50-100 H (0-3) per hpf Ur Squamous Epith Cells Many H (None-Few) per lpf Urine Bacteria Many H (None-Few) per hpf Hyaline Casts [employer] Ur Culture Indicated? YES A (NO) - Radiology Data Radiology results reviewed: Yes I reviewed the patient's radiology results. Chest X-Ray 01/14/17 00:28 IMPRESSION: Cardiomegaly with perihilar edema. The changes may be related to CHF or pneumonia. Possible right pleural effusion. D/ / Piero Lafleur MD / Piero Lafleur MD Interpreting Provider: Piero Lafleur MD - EKG Data EKG #1 EKG attestation: Yes I reviewed and interpreted this EKG. EKG shows normal: sinus rhythm (81 bpm DE 173 QRS [address] segment elevations or depressions) Attestation Statement - Attestation Attestation: I, Slade Kamara, examined this patient and my medical decision-making was reviewed with the TAPE EDITOR/PA/Advanced Practice Nurse/Resident Physician. I agree with the documented findings, disposition and treatment plan as described except to the extent set forth below. 61-year-old female presents to emergency Department with concerns of increased weakness, shortness of breath and persistent diarrhea. She was recently discharged after being admitted for anemia and weakness. Upon initial evaluation patient was satting 84%, had difficulty lying flat. BiPAP was initiated and patient felt significantly improved. Urinalysis was obtained which is possibly a contaminated specimen, we will wait for culture results. Patient is afebrile does not have a leukocytosis. Chest x-ray shows possible CHF versus perihilar infiltrate. Again patient does not have a fever or leukocytosis. Patient will be admitted to the hospital for further evaluation of her weakness and likely CHF exacerbation. Patient does have an elevation of her troponin component which is likely secondary to ischemic demand
[2017-01-13 23:36] LABS: Alanine Aminotransferase 11 Units/L (0-55); Albumin 2.4 g/dL (3.5-5.0); Albumin/Globulin Ratio 0.5 (1.1-2.2); Alkaline Phosphatase 110 Units/L (38-126); Aspartate Amino Transferase 9 Units/L (5-34); BUN/Creatinine Ratio 17 (6-26); Bilirubin,Direct 0.2 mg/dL (0.0-0.5); Bilirubin,Indirect 0.3 mg/dL (0.0-1.2); Bilirubin,Total 0.5 mg/dL (0.2-1.2); Blood Urea Nitrogen 37 mg/dL (7-20); Calcium 8.7 mg/dL (8.6-10.8); Carbon Dioxide 29 mEq/L (19-29); Chloride 104 mEq/L (98-109); Globulin 4.4 g/dL (2.4-3.5); Glucose 58 mg/dL (70-99); Osmolality,Calculated 306 (280-300); Sodium 145 mEq/L (136-145); Total Protein 6.8 g/dL (6.0-8.3); eGFR For African Americans 28 (> 60); eGFR For Non-African Americans 23 (> 60)
[2017-01-13 23:37] LABS: Lipase < 10 Units/L (8-78); Potassium 3.8 mEq/L (3.5-4.5)
[2017-01-14] MEDS: *HR* LORazepam 2 MG/ML VIAL IVP ONE ×2 (00:39→00:53)
[2017-01-14 01:01] LABS: VBG HCO3 26 mEq/L (21-27); VBG PCO2 36 mmHg (41-51); VBG PH 7.47 pH Units (7.32-7.42); VBG PO2 218 mmHg (25-50)
[2017-01-14 01:26] LABS: Bilirubin,Urine Negative (Negative); Blood,Urine Moderate (Negative); Clarity,Urine Turbid (Clear); Color,Urine Yellow (Yellow); Glucose,Urine (UA) Normal (Normal); Ketones,Urine Negative (Negative); Leukocyte Esterase,Urine Trace (Negative); Nitrite,Urine Negative (Negative); Protein,Urine >=300 mg/dL (Neg-Trace); Specific Gravity,Urine 1.018 (1.010-1.025); Urobilinogen,Urine Normal (Normal)
[2017-01-14 01:28] LABS: Bacteria,Urine Many per hpf (None-Few); RBC,Urine 15-30 per hpf (0-3); Squamous Epithelial Cell,Urine Many per lpf (None-Few); WBC,Urine 50-100 per hpf (0-3)
[2017-01-14] MEDS ORDERED: MetroNIDAZOLE 500 MG/100 ML 500 MG/100 ML BAG IVPB ONE (01:42)
[2017-01-14] MEDS ORDERED: Aspirin 325 MG TABLET PO ONE (01:42)
[2017-01-14] MEDS ORDERED: Furosemide 40 MG/4 ML VIAL IVP ONE (02:55)
[2017-01-14] MEDS: niCARdipine 40 MG/200 ML MLS IVC SCH ×2 (03:25→17:32)
--- NOTE | 2017-01-14 08:19 | Internal Med History&Physical ---
<Shirlene Hoyt - Last Filed: 01/14/17 21:26> Date of Encounter: 01/14/17 Time of Encounter: 07:40 Assessment and Plan (1) Dyspnea Current visit: Yes Status: Acute - Likely secondary to exacerbation of HFpEF - BNP 472. Most recent Echo November 2016 showing EF 60-65% and mild diastolic dysfunction - CXR showing perihilar edema suggestive of pulmonary edema. Rales on physical exam. - Continue BiPAP, Lasix 40 mg IV daily, Strict I/Os, Fluid restriction 1.5L, daily weights Qualifiers: Dyspnea type: dyspnea on exertion Qualified Code(s): R06.09 - Other forms of dyspnea (2) Hypertensive urgency Current visit: Yes Status: Acute - BP on admission of 191/81, high of 204/124 - No evidence of end organ damage. Kidney function at baseline. Troponin likely elevated in the setting of CHF exacerbation and CKD - On nicardipine gtt. Will wean as tolerated and continue home meds (3) CKD (chronic kidney disease) Current visit: Yes Status: Chronic - At baseline - Continue to monitor and avoid nephrotoxic agents. Qualifiers: Chronic kidney disease stage: stage 3 (moderate) Qualified Code(s): N18.3 - Chronic kidney disease, stage 3 (moderate) (4) Obesity Current visit: Yes Status: Chronic - Severe morbid obesity with BMI of 65.4 - Encouraged to lose weight after discharge. Qualifiers: Obesity type: due to excess calories Qualified Code(s): E66.01 - Morbid ( severe) obesity due to excess calories (5) Diarrhea Current visit: Yes Status: Acute - Loose BMs too numerous to count per patient - C.diff toxin pending collection. - No BMs since admission. Qualifiers: Diarrhea type: unspecified type Qualified Code(s): R19.7 - Diarrhea, unspecified (6) CHF (congestive heart failure) Current visit: Yes Status: Chronic - As above for dyspnea Qualifiers: Congestive heart failure type: diastolic Congestive heart failure chronicity: acute on chronic Qualified Code(s): I50.33 - Acute on chronic diastolic (congestive) heart failure (7) DM (diabetes mellitus), type 2, uncontrolled Current visit: Yes Status: Chronic - Diabetic diet. - SSI moderate. - A1c pending Qualifiers: Diabetes mellitus complication status: with kidney complications Diabetes mellitus complication detail: with chronic kidney disease Diabetes mellitus custodial insulin use: with custodial use Chronic kidney disease stage: stage 3 (moderate) Qualified Code(s): E11.22 - Type 2 diabetes mellitus with diabetic chronic kidney disease; E11.65 - Type 2 diabetes mellitus with hyperglycemia; Z79.4 - care home (current) use of insulin; E11.65 - Type 2 diabetes mellitus with hyperglycemia; E11.65 - Type 2 diabetes mellitus with hyperglycemia; E11.65 - Type 2 diabetes mellitus with hyperglycemia; N18.3 - Chronic kidney disease, stage 3 (moderate); N18.3 - Chronic kidney disease, stage 3 (moderate); Z79.4 - supervisor kosher dietary service (current) use of insulin; Z79.4 - supervisor kosher dietary service (current) use of insulin; Z79.4 - supervisor kosher dietary service (current) use of insulin (8) Hx of deep venous thrombosis Current visit: Yes Status: Chronic - Continue home coumadin - Pharmacy to dose. - INR subtherapeutic at 1.1 - IVC filter in place. (9) Weakness Current visit: Yes Status: Acute - Consult to PT/OT - Possible etiology of CHF exacerbation (10) Anemia Current visit: Yes Status: Chronic - H/H of 9.3/31.5 on admission, improved from discharge date. - No active signs of bleeding. - Discharged on 01/11 for symptomatic anemia - Continue home iron supplement - Lower GI bleed on last admission with colonoscopy finding multiple polyps that were not removed due to patient taking plavix - Recommended to follow up at outpatient for additional colonoscopy. - Will continue to monitor and transfuse if needed. Qualifiers: Anemia type: due to chronic kidney disease Chronic kidney disease stage: stage 4 (severe) Qualified Code(s): N18.4 - Chronic kidney disease, stage 4 ( severe); D63.1 - Anemia in chronic kidney disease; D63.1 - Anemia in chronic kidney disease (11) DVT prophylaxis Current visit: Yes Status: Acute - Continue home coumadin as above Internal Medicine - H&P: HPI Chief complaint: weakness, JEANNINE Admitted From: Emergency Dept Plans for Post Hospital Care: Home History of present illness: Ms. Mars is a 61 year old female who presents to the ED with a complaint of weakness for several days. She has a PMhx of HFpEF, DM2, CKD, COPD requiring 3L supplemental O2. She admits that she becomes dyspnic on exertion with a limit of getting up to go to the bathroom. Of note, she was discharged from this hospital on 01/11 for symptomatic anemia. During time of interview, patient does not appear to be a good historian and answers yes to most questions regarding her symptoms. She states that lately she has experienced dizziness, lightheadedness, diaphoresis, SOB, nausea, vomiting, subjective fevers and chills and a dry cough. States she has 2 episodes of emesis yesterday. She reports that she has had too many BMs to count, loose in nature. She has noted some blood on tissue paper after BM.She was reportedly told on last admission that she had c.diff. She denies any sick contacts. In the ED, Vital signs were significant for BP of 191/81, otherwise unremarkable. Labs were remarkable for H/H above previous admission last week, CKD at baseline, mildly elevated troponin of 0.05, BNP of 472. CXR was remarkable for perihilar edema and cardiomegaly. Past Med Surg Social Fam HX - Past Medical History Medical history: arthritis, CHF, COPD, DVT, diabetes, GERD, hyperlipidemia, hypertension, migraine, osteoporosis, renal disease, thyroid disease, other Psychiatric history: anxiety, depression - Past Surgical History Surgical History: appendectomy, hysterectomy, orthopedic, other, other, IVC filter - Social History Smoking Status: Former smoker Smokeless Tobacco Status: No Alcohol use: none Drug use: none - Family History Father Living Status: Hx Family GI Disorders: No Mother Living Status: Hx Family Cardiac Disorders: Yes Hx Family Cancer: Yes Hx Family GI Disorders: No Hx Family Endocrine Disorder: Yes (DIABETES MELLITUS.) Internal Medicine - H&P: Meds Cyclobenzaprine [Flexeril] 10 mg PO TID 09/12/14 [History] Docusate [Colace] 100 mg PO TID 09/12/14 [History] Doxepin [Sinequan] 50 mg PO HS 09/12/14 [History] Meclizine [Antivert] 25 mg PO TID 09/12/14 [History] Allopurinol [Zyloprim 100 MG] 100 mg PO DAILY 03/22/15 [History] DiphenhydraMINE [Benadryl] 25 mg PO TID 03/22/15 [History] Exenatide Microspheres [Bydureon Pen] 2 mg SQ MO 03/22/15 [History] Lidocaine Patch [Lidoderm 5% patch] 1 - 3 patch TP DAILY 03/22/15 [History] Nitroglycerin [Nitrostat] 0.4 mg SL Q5M PRN 03/22/15 [History] Promethazine [Phenergan] 25 mg PO TID 03/22/15 [History] clonazePAM [Klonopin] 1 mg PO HS 03/22/15 [History] Metoprolol XL (24 HR) Succ [Toprol Xl] 25 mg PO DAILY 07/31/15 [History] Furosemide [Lasix] 40 mg PO BID 03/02/16 [History] Albuterol Neb [AccuNeb] 1.25 mg IH QID PRN 05/06/16 [History] Levothyroxine [Synthroid] 250 mcg PO QAM 05/06/16 [History] Nystatin POWDER [Nystop] 1 appl TP QID 05/06/16 [History] Rosuvastatin [Crestor] 20 mg PO HS 05/06/16 [History] Acetaminophen [Tylenol] 650 mg PO Q4-6H 11/10/16 [History] Omeprazole [PriLOSEC] 40 mg PO DAILY 11/10/16 [History] Isosorbide MONOnitrate (24 HR) [Imdur] 60 mg PO QPM #30 tab.er.24h 11/11/16 [Rx] Potassium Chloride [Klor-Con 10] 10 meq PO BID 11/11/16 [History] Gabapentin [Neurontin] 100 mg PO TID #90 capsule 11/27/16 [Rx] Insulin DETEMIR [Levemir] 100 unit SQ BID #2 vial 11/27/16 [Rx] Insulin LISPRO [HumaLOG] 18 units SQ TIDWM #2 vial 11/27/16 [Rx] Warfarin [Coumadin] 3 mg PO 1800 #5 tablet 11/27/16 [Rx] amLODIPine [Norvasc] 5 mg PO DAILY 01/07/17 [History] Ferrous Sulfate 325 mg PO BIDWM #60 tablet 01/11/17 [Rx] 3 Allergy/AdvReac Type Severity Reaction Status Date / Time aspirin Allergy Hives Verified 01/07/17 18:11 cephalexin [From Keflex] Allergy Difficulty Verified 01/07/17 18:11 Breathing codeine Allergy Hypertensio Verified 01/07/17 18:11 n Cortisone Allergy See Verified 01/07/17 18:11 Comments hydrocortisone Allergy Hypertensio Verified 01/07/17 18:11 n ibuprofen Allergy Hives Verified 01/07/17 18:11 Iodinated Contrast- Oral and Allergy See Verified 01/07/17 18:11 IV Dye Comments [Iodinated Contrast Media - IV Dye] lidocaine [From Xylocaine] Allergy See Verified 01/07/17 18:11 Comments loratadine [From Claritin] Allergy Hives Verified 01/07/17 18:11 methylprednisolone Allergy Hypertensio Verified 01/07/17 18:11 [From Solu-Medrol] n Penicillins Allergy See Verified 01/07/17 18:11 Comments prednisone Allergy Hypertensio Verified 01/07/17 18:11 n Procaine [From Novocain] Allergy See Verified 01/07/17 18:11 Comments propoxyphene [From Darvon] Allergy See Verified 01/07/17 18:11 Comments pseudoephedrine Allergy Hives Verified 01/07/17 18:11 [From Sudafed] ropinirole [From Requip] Allergy See Verified 01/07/17 18:11 Comments tramadol AdvReac See Verified 01/07/17 18:11 Comments All Systems PM: A 10-system review of systems was performed and is negative for pertinent findings except as documented above in the HPI. - Constitutional Constitutional: chills, fatigue, fever(s), weakness - Cardiovascular Cardiovascular ROS IM: chest pain, diaphoresis, dyspnea, dyspnea on exertion, edema, lightheadedness - Respiratory Respiratory: cough, dyspnea, dyspnea on exertion - Gastrointestinal Gastrointestinal: diarrhea, loose stools, nausea, vomiting, no abdominal pain - Neurological Neurological ROS: dizziness, weakness - Constitutional Vitals: Temp Pulse Resp BP Pulse Ox 98.4 F 83 16 169/105 97 01/14/17 02:49 01/14/17 07:53 01/14/17 07:53 01/14/17 07:53 01/14/17 07:53 General appearance: Present: mild distress, A&O X 3, morbidly obese, answers questions appropriately - Head Head exam: Present: atraumatic, normocephalic - Eye Eye exam: Present: EOMI, normal appearance - Respiratory Respiratory exam: Present: rales. Absent: respiratory distress Additional comments: Bibasilar crackles - Cardiovascular Cardiovascular exam: Present: RRR, +S1, +S2 - GI/Abdominal GI/Abdominal exam: Present: normal bowel sounds - Extremities Exam Extremities exam: Present: pedal edema (2+ pitting edema on left, 1+ on right LE ) - Skin Additional comments: stasis dermatitis Internal Med - H&P Results - Labs CBC & Chem 7: 01/13/17 23:17 01/13/17 23:17 Labs: Cardiac Enzymes 01/14/17 Range/Units 04:33 Troponin I 0.04 H* (0-0.03) ng/mL <Milan Ulloa - Last Filed: 01/15/17 16:38> Date of Encounter: 01/14/17 Assessment and Plan (1) Acute on chronic respiratory failure with hypoxia Current visit: No Status: Chronic (2) CHF exacerbation Current visit: No Status: Acute Qualifiers: Congestive heart failure type: diastolic Qualified Code(s): I50.33 - Acute on chronic diastolic (congestive) heart failure (3) Pulmonary edema Current visit: No Status: Acute Qualifiers: Chronicity: acute Qualified Code(s): J81.0 - Acute pulmonary edema (4) Morbid obesity Current visit: No Status: Chronic (5) Anemia Current visit: Yes Status: Chronic Qualifiers: Anemia type: due to chronic kidney disease Chronic kidney disease stage: stage 4 (severe) Qualified Code(s): N18.4 - Chronic kidney disease, stage 4 ( severe); D63.1 - Anemia in chronic kidney disease; D63.1 - Anemia in chronic kidney disease (6) Type 2 diabetes mellitus Current visit: No Status: Chronic Qualifiers: Diabetes mellitus complication status: with neurologic complications Diabetes mellitus complication detail: with polyneuropathy Diabetes mellitus sizing sponger insulin use: with sizing sponger use Qualified Code(s): E11.42 - Type 2 diabetes mellitus with diabetic polyneuropathy; Z79.4 - supervisor kosher dietary service (current) use of insulin (7) Hypothyroidism Current visit: No Status: Chronic Qualifiers: Hypothyroidism type: unspecified Qualified Code(s): E03.9 - Hypothyroidism , unspecified Internal Medicine - H&P: HPI History of present illness: Ms. Mars is a 61 year old female All Systems PM: A 10-system review of systems was performed and is negative for pertinent findings except as documented above in the HPI. - Constitutional Vitals: Temp Pulse Resp BP Pulse Ox 98.7 F 93 17 109/58 93 01/14/17 16:33 01/14/17 18:00 01/14/17 16:33 01/14/17 18:00 01/14/17 16:33 Internal Med - H&P Results - Labs CBC & Chem 7: 01/15/17 05:10 01/15/17 05:10 Labs: Cardiac Enzymes 01/14/17 01/14/17 Range/Units 10:23 15:49 Troponin I 0.04 H* 0.04 H* (0-0.03) ng/mL - Attending Attestation I examined this patient and my medical decision-making was reviewed with the Resident Physician on 01/14/17. I agree with the documented findings, disposition and treatment plan as described except to the extent set forth below. Ms Mars is 61 y/o female just discharged from [place] this past week. She had been admitted for anemia and transfused. She has had progressive dyspnea and cough since discharge. No CP. No fever or chills. Currently she is on bipap and feels somewhat better. Exam Alert. Mild distress due to dyspnea Mucus membranes dry Heart not tachy and distant Lungs diminished Abd obese Edema present I/P 1. Hypoxic resp failure 2. CHF 3. Anemia Further diagnoses and plan as above.
[2017-01-14] MEDS ORDERED: Ondansetron 4 MG/2 ML VIAL IVP PRN (08:26)
[2017-01-14] MEDS ORDERED: Naloxone 0.4 MG/ML INJ IVP PRN (08:26)
[2017-01-14] MEDS ORDERED: *HR* Promethazine 25 MG/ML VIAL IVP PRN (08:26)
[2017-01-14] MEDS ORDERED: Ipratropium/Albuterol Neb 3 ML IH PRN (08:42)
[2017-01-14] MEDS ORDERED: Nitroglycerin 0.4 MG TAB.SUBL SL PRN (08:43)
[2017-01-14] MEDS ORDERED: Dextrose Gel 15 GM PO PRN ×2 (08:48)
[2017-01-14] MEDS ORDERED: D5% in Water 1,000 ML IVC PRN (08:48)
[2017-01-14] MEDS ORDERED: *HR* Dextrose 50 % in Water (Syg) 50 ML SYRINGE IVP PRN (08:48)
[2017-01-14 10:44] LABS: Hemoglobin A1C 6.4 %
[2017-01-14] MEDS: Gabapentin 100 MG CAPSULE PO SCH ×3 (10:50→21:15)
[2017-01-14] MEDS: Insulin LISPRO 300 UNITS/3 ML VIAL SQ SCH ×3 (10:51→21:16)
[2017-01-14] MEDS: Nystatin POWDER 30 GM BOTTLE TP SCH ×4 (10:53→21:44)
[2017-01-14 12:46] LABS: INR 1.2; Prothrombin Time 12.6 Seconds (9.4-12.1)
[2017-01-14] MEDS: Acetaminophen 325 MG TABLET PO PRN ×2 (13:34→21:15)
[2017-01-14] MEDS ORDERED: Furosemide 20 MG/2 ML VIAL IVP ONE (15:40)
[2017-01-14] MEDS: amLODIPine 5 MG TABLET PO SCH (16:11)
[2017-01-14] MEDS: *HR* Heparin 5,000 UNIT/ML VIAL SQ SCH ×2 (16:11→21:15)
[2017-01-14] MEDS: Isosorbide MONOnitrate (24 HR) 30 MG TAB.ER.24H PO SCH (17:13)
[2017-01-14] MEDS ORDERED: Warfarin perPT PO PRN (18:00)
[2017-01-14] MEDS ORDERED: *HR* Warfarin 5 MG TABLET PO ONE (18:00)
[2017-01-14] MEDS: Ipratropium/Albuterol Neb 3 ML IH SCH ×2 (19:45→22:18)
[2017-01-14] MEDS: clonazePAM 1 MG TABLET PO SCH (21:15)
[2017-01-14] MEDS ORDERED: 0.9 % Sodium Chloride 500 ML ONE (22:54)
[2017-01-15] MEDS: Ipratropium/Albuterol Neb 3 ML IH SCH ×4 (03:58→22:37)
[2017-01-15 05:27] LABS: INR 1.1; Prothrombin Time 12.4 Seconds (9.4-12.1)
[2017-01-15 05:31] LABS: Basophils % 0.3 %; Eosinophils # 0.2 K/mcL (0.0-0.6); Eosinophils % 2.6 %; Hematocrit 28.9 % (35.3-44.9); Hemoglobin 8.5 g/dL (11.5-15.4); Immature Granulocytes % 0.5 % (0-4); Lymphocytes # 1.3 K/mcL (0.6-4.6); Lymphocytes % 22.1 %; Mean Corpuscular HGB Conc 29.4 g/dL (31.6-35.5); Mean Corpuscular Hemoglobin 28.5 pg (28.0-33.3); Mean Platelet Volume 9.9 fL (9.4-12.4); Monocytes # 0.4 K/mcL (0.0-1.3); Monocytes % 7.2 %; Neutrophils # 4.1 K/mcL (1.6-8.9); Platelet Count 240 K/mcL (140-400); Red Blood Count 2.98 M/mcL (3.82-4.97); Red Cell Distribution Width 16.6 % (11.5-14.5); Segmented Neutrophils % 67.3 %
[2017-01-15 05:38] LABS: Calcium 7.9 mg/dL (8.6-10.8); Phosphorous 3.6 mg/dL (2.3-4.7); Potassium 3.6 mEq/L (3.5-4.5)
[2017-01-15] MEDS: *HR* Heparin 5,000 UNIT/ML VIAL SQ SCH ×3 (05:55→22:11)
--- NOTE | 2017-01-15 06:47 | Electrocardiograph Report ---
[place] [id number] Test Date: 2017-01-14 Pat Name: Jenny Mars Department: 103 Room: 2N07 Gender: F Tube Splicer: MARIELA : 1955 Requested By: Nicanor Kumar Order Number: [id number] Reading MD: Julieta Srinivasan Measurements Intervals [place] Rate: 81 P: 45 TN: 173 QRS: 57 QRSD: 105 T: 46 QT: 386 QTc: 423 Interpretive Statements SINUS RHYTHM INCOMPLETE RIGHT BUNDLE BRANCH BLOCK [90+ ms QRS DURATION, TERMINAL R IN V1/V2, 40+ ms S IN I/aVL/V4/V5/V6] NONSPECIFIC T-WAVE ABNORMALITY Electronically Signed On 01-15-2017 6:46:01 EST by Julieta Srinivasan
[2017-01-15] MEDS: niCARdipine 40 MG/200 ML MLS IVC SCH ×2 (08:10→11:25)
[2017-01-15] MEDS: Gabapentin 100 MG CAPSULE PO SCH ×3 (08:14→22:11)
[2017-01-15] MEDS: amLODIPine 5 MG TABLET PO SCH (08:15)
[2017-01-15] MEDS: Furosemide 40 MG/4 ML VIAL IVP SCH (08:15)
[2017-01-15] MEDS: Insulin LISPRO 300 UNITS/3 ML VIAL SQ SCH ×4 (08:16→22:10)
[2017-01-15] MEDS: Nystatin POWDER 30 GM BOTTLE TP SCH ×4 (09:30→22:12)
--- NOTE | 2017-01-15 13:32 | Internal Med Progress Note ---
<DrakeusMercedezbelinda - Last Filed: 01/15/17 15:56> Date of Encounter: 01/15/17 Time of Encounter: 13:30 - Assessment and plan (1) Shortness of breath Current Visit: Yes Status: Acute Assessment and plan: patient came in with increasing shortness of breath. Etiology likely multifactorial secondary to acute CHF, likely component of OHS present as well. Also will consider PE, as patient is high risk for PE last echo 11/23/16 showed EF 60-65%, no significant valvular heart disease, no evidence of PFO. CXR showed cardiomegaly with perihilar edema. ordered V/Q scan to rule out PE, but patient could not get this test done because she cannot lie flat for at least 30 minutes. Patient states she never is able to lie flat at home either. Plan: IV lasix 40mg daily strict I/O daily weights fluid restricted diet will do overnight BiPAP qualification with ABG in the morning. (2) CHF exacerbation Current Visit: No Status: Acute Assessment and plan: as above Qualifiers: Congestive heart failure type: diastolic Qualified Code(s): I50.33 - Acute on chronic diastolic (congestive) heart failure (3) Hypertensive urgency Current Visit: Yes Status: Acute Assessment and plan: initially came in with hypertensive urgency, was on cardene drip that was weaned off continue home blood pressure meds. (4) CKD (chronic kidney disease) Current Visit: Yes Status: Chronic Assessment and plan: Cr slightly increased from baseline due to diuresis continue to monitor. Qualifiers: Chronic kidney disease stage: stage 3 (moderate) Qualified Code(s): N18.3 - Chronic kidney disease, stage 3 (moderate) (5) Diarrhea Current Visit: Yes Status: Acute Assessment and plan: resolved Qualifiers: Diarrhea type: unspecified type Qualified Code(s): R19.7 - Diarrhea, unspecified (6) DM (diabetes mellitus), type 2, uncontrolled Current Visit: Yes Status: Chronic Assessment and plan: Medium dose SSI with ACHS accuchecks ADA diet Qualifiers: Diabetes mellitus complication status: with kidney complications Diabetes mellitus complication detail: with chronic kidney disease Diabetes mellitus mcc insulin use: with mcc use Chronic kidney disease stage: stage 3 (moderate) Qualified Code(s): E11.22 - Type 2 diabetes mellitus with diabetic chronic kidney disease; E11.65 - Type 2 diabetes mellitus with hyperglycemia; Z79.4 - exterminator helper (current) use of insulin; E11.65 - Type 2 diabetes mellitus with hyperglycemia; E11.65 - Type 2 diabetes mellitus with hyperglycemia; E11.65 - Type 2 diabetes mellitus with hyperglycemia; N18.3 - Chronic kidney disease, stage 3 (moderate); N18.3 - Chronic kidney disease, stage 3 (moderate); Z79.4 - half-way (current) use of insulin; Z79.4 - exterminator helper (current) use of insulin; Z79.4 - half-way (current) use of insulin (7) History of DVT (deep vein thrombosis) Current Visit: No Status: Chronic Assessment and plan: coumadin dosed by pharmacy on SQ heparin bridge until therapeutic INR achieved (8) Weakness Current Visit: Yes Status: Acute Assessment and plan: PT/OT (9) Anemia Current Visit: Yes Status: Chronic Assessment and plan: hx of iron deficiency recently hospitalized for symptomatic anemia. colonoscopy done previously showing multiple polyps, recommendation was to follow up outpatient and repeat colonosocopy Plan: continue home dose ferrous sulfate continue to monitor H/H outpatient follow up with GI for colonoscopy Qualifiers: Anemia type: due to chronic kidney disease Chronic kidney disease stage: stage 4 (severe) Qualified Code(s): N18.4 - Chronic kidney disease, stage 4 ( severe); D63.1 - Anemia in chronic kidney disease; D63.1 - Anemia in chronic kidney disease (10) Morbid obesity Current Visit: No Status: Chronic Assessment and plan: lifestyle modifications advised (11) DVT prophylaxis Current Visit: No Status: Acute Assessment and plan: pharmacy dosing coumadin bridge with SQ heparin until INR therapeutic - Subjective Interval history: 61F evaluated at bedside. patient denies nausea, vomiting. admits to fever, chills, shortness of breath. denies chest pain. - Constitutional Vitals: Temp Pulse Resp BP Pulse Ox 98.2 F 98 20 144/70 97 01/15/17 11:00 01/15/17 11:00 01/15/17 11:00 01/15/17 11:00 01/15/17 10:57 General appearance: Present: mild distress, A&O X 3, morbidly obese, answers questions appropriately - Head Head exam: Present: atraumatic, normocephalic - Neck Neck exam general surgery: Present: supple, trachea midline - Respiratory Respiratory exam: Present: decreased breath sounds - Cardiovascular Cardiovascular exam: Present: RRR, +S1, +S2 - GI/Abdominal Additional comments: obese, distended, non tender, positive bowel sounds - Extremities Exam Extremities exam: Present: pedal edema (+3 pitting edema LLE, +2 pitting edema RLE). Absent: cyanotic - Skin Additional comments: venous stasis present. Internal Medicine: Result - Labs CBC & Chem 7: 01/15/17 05:10 01/15/17 05:10 Labs: Short CBC 01/15/17 Range/Units 05:10 WBC 6.1 (4.3-11.1) K/mcL Hgb 8.5 L (11.5-15.4) g/dL Hct 28.9 L (35.3-44.9) % Plt Count 240 (140-400) K/mcL Neutrophils # 4.1 (1.6-8.9) K/mcL BMP 01/15/17 05:10 Sodium 144 Potassium 3.6 Chloride 106 Carbon Dioxide 26 BUN 31 H Creatinine 2.36 H Glucose 145 H Calcium 7.9 L Cardiac Enzymes 01/14/17 Range/Units 15:49 Troponin I 0.04 H* (0-0.03) ng/mL - ABG Interpretation ABG results: PT/INR, D-dimer PT 12.4 Seconds (9.4-12.1) H 01/15/17 05:10 - VTE Reasons for not Prescribing Prophylaxis: Not indicated-Anticoagulated or INR therapeutic Consult Discharge Plan - Plan Referrals: Mauro Dockery MD [Primary Care Provider] - 01/20/17 1:15 pm () <Milan Ulloa - Last Filed: 01/15/17 18:39> Date of Encounter: 01/15/17 - Assessment and plan (1) Acute on chronic respiratory failure with hypoxia Current Visit: No Status: Chronic (2) CHF exacerbation Current Visit: No Status: Acute Qualifiers: Congestive heart failure type: diastolic Qualified Code(s): I50.33 - Acute on chronic diastolic (congestive) heart failure (3) Pulmonary edema Current Visit: No Status: Acute Qualifiers: Chronicity: acute Qualified Code(s): J81.0 - Acute pulmonary edema (4) Morbid obesity Current Visit: No Status: Chronic (5) Anemia Current Visit: Yes Status: Chronic Qualifiers: Anemia type: due to chronic kidney disease Chronic kidney disease stage: stage 4 (severe) Qualified Code(s): N18.4 - Chronic kidney disease, stage 4 ( severe); D63.1 - Anemia in chronic kidney disease; D63.1 - Anemia in chronic kidney disease (6) Type 2 diabetes mellitus Current Visit: No Status: Chronic Qualifiers: Diabetes mellitus complication status: with neurologic complications Diabetes mellitus complication detail: with polyneuropathy Diabetes mellitus mcc insulin use: with exterminator helper use Qualified Code(s): E11.42 - Type 2 diabetes mellitus with diabetic polyneuropathy; Z79.4 - half-way (current) use of insulin (7) Hypothyroidism Current Visit: No Status: Chronic Qualifiers: Hypothyroidism type: unspecified Qualified Code(s): E03.9 - Hypothyroidism , unspecified - Constitutional Vitals: Temp Pulse Resp BP Pulse Ox 98.2 F 98 20 144/70 97 01/15/17 11:00 01/15/17 11:00 01/15/17 11:00 01/15/17 11:00 01/15/17 10:57 Internal Medicine: Result - Labs CBC & Chem 7: 01/15/17 05:10 01/15/17 05:10 Labs: Short CBC 01/15/17 Range/Units 05:10 WBC 6.1 (4.3-11.1) K/mcL Hgb 8.5 L (11.5-15.4) g/dL Hct 28.9 L (35.3-44.9) % Plt Count 240 (140-400) K/mcL Neutrophils # 4.1 (1.6-8.9) K/mcL BMP 01/15/17 05:10 Sodium 144 Potassium 3.6 Chloride 106 Carbon Dioxide 26 BUN 31 H Creatinine 2.36 H Glucose 145 H Calcium 7.9 L - ABG Interpretation ABG results: PT/INR, D-dimer PT 12.4 Seconds (9.4-12.1) H 01/15/17 05:10 - Attending Attestation I examined this patient and my medical decision-making was reviewed with the Resident Physician on 01/15/17. I agree with the documented findings, disposition and treatment plan as described except to the extent set forth below. Ms Mars is currently admitted for acute resp failure and fluid overload. She remains moderate to high risk due to potential for worsening respiratory symptoms. Ms Mars is doing somewhat better today. She has had some diuresis. Bipap helps especially at night. No fever or chills. No GI issues. Exam Alert. Comfortable. Mucus membranes dry Heart reg and distant Lungs diminished Abd soft Edema present I/P 1. Resp failure 2. CHF 3. Pulm edema Bipap qualification if able Further diagnoses and plan as above.
[2017-01-15] MEDS ORDERED: *HR* Warfarin 3 MG TABLET PO SCH (18:00)
[2017-01-15] MEDS: Isosorbide MONOnitrate (24 HR) 30 MG TAB.ER.24H PO SCH (18:13)
[2017-01-15] MEDS: clonazePAM 1 MG TABLET PO SCH (22:11)
[2017-01-16] MEDS: Ipratropium/Albuterol Neb 3 ML IH SCH ×4 (03:56→22:26)
[2017-01-16 05:11] LABS: ABG Base Excess 4 mEq/L (-2 to 3); ABG HCO3 31 mEq/L (21-27); ABG Oxygen Saturation 93 % (95-98); ABG PCO2 58 mmHg (35-45); ABG PH 7.34 pH Units (7.32-7.45); ABG PO2 73 mmHg (85-104); ABG TCO2 33 mEq/L (20-26)
[2017-01-16] MEDS: *HR* Heparin 5,000 UNIT/ML VIAL SQ SCH ×3 (05:45→21:53)
[2017-01-16 06:05] LABS: Basophils % 0.2 %; Eosinophils # 0.2 K/mcL (0.0-0.6); Eosinophils % 3.1 %; Hematocrit 26.5 % (35.3-44.9); Hemoglobin 7.9 g/dL (11.5-15.4); Immature Granulocytes % 0.8 % (0-4); Lymphocytes % 15.4 %; Mean Corpuscular HGB Conc 29.8 g/dL (31.6-35.5); Mean Corpuscular Hemoglobin 28.6 pg (28.0-33.3); Mean Platelet Volume 9.8 fL (9.4-12.4); Monocytes # 0.6 K/mcL (0.0-1.3); Monocytes % 9.4 %; Neutrophils # 4.4 K/mcL (1.6-8.9); Platelet Count 230 K/mcL (140-400); Red Blood Count 2.76 M/mcL (3.82-4.97); Red Cell Distribution Width 16.5 % (11.5-14.5); Segmented Neutrophils % 71.1 %
[2017-01-16 06:09] LABS: INR 1.2; Prothrombin Time 12.5 Seconds (9.4-12.1)
[2017-01-16 06:16] LABS: Calcium 7.9 mg/dL (8.6-10.8); Potassium 3.7 mEq/L (3.5-4.5)
[2017-01-16] MEDS: Insulin LISPRO 300 UNITS/3 ML VIAL SQ SCH ×5 (08:21→21:53)
[2017-01-16] MEDS: Acetaminophen 325 MG TABLET PO PRN (08:22)
[2017-01-16] MEDS: amLODIPine 5 MG TABLET PO SCH (08:22)
[2017-01-16] MEDS: Gabapentin 100 MG CAPSULE PO SCH ×3 (08:23→21:53)
[2017-01-16] MEDS: Furosemide 40 MG/4 ML VIAL IVP SCH (08:23)
[2017-01-16] MEDS: Nystatin POWDER 30 GM BOTTLE TP SCH ×4 (08:26→23:30)
[2017-01-16] MEDS: Insulin DETEMIR 100 UNIT/ML X5UNITS SQ SCH (09:59)
[2017-01-16] MEDS ORDERED: Furosemide 40 MG/4 ML VIAL IVP SCH (10:47)
--- NOTE | 2017-01-16 10:50 | Internal Med Progress Note ---
<Shirlene Hoyt - Last Filed: 01/16/17 10:48> Date of Encounter: 01/16/17 Time of Encounter: 10:49 - Assessment and plan (1) Dyspnea Current Visit: Yes Status: Acute Assessment and plan: patient came in with increasing shortness of breath. Etiology likely multifactorial secondary to acute CHF, noncompliance with fluid restriction, likely component of OHS present as well. Also will consider PE, as patient is high risk for PE last echo 11/23/16 showed EF 60-65%, no significant valvular heart disease, no evidence of PFO. CXR showed cardiomegaly with perihilar edema. ordered V/Q scan to rule out PE, but patient could not get this test done because she cannot lie flat for at least 30 minutes. Patient states she never is able to lie flat at home either. Plan: Decrease lasix to 20mg strict I/O daily weights fluid restricted diet likely d/c tomorrow with BiPAP--patient qualified. Will likely send home on Lasix 60mg BID Qualifiers: Dyspnea type: dyspnea on exertion Qualified Code(s): R06.09 - Other forms of dyspnea (2) Hypertensive urgency Current Visit: Yes Status: Acute Assessment and plan: initially came in with hypertensive urgency, was on cardene drip that was weaned off continue home blood pressure meds. (3) CKD (chronic kidney disease) Current Visit: Yes Status: Chronic Assessment and plan: Cr slightly increased from baseline due to diuresis continue to monitor. Qualifiers: Chronic kidney disease stage: stage 3 (moderate) Qualified Code(s): N18.3 - Chronic kidney disease, stage 3 (moderate) (4) Diarrhea Current Visit: Yes Status: Acute Assessment and plan: resolved Qualifiers: Diarrhea type: unspecified type Qualified Code(s): R19.7 - Diarrhea, unspecified (5) CHF (congestive heart failure) Current Visit: Yes Status: Chronic Qualifiers: Congestive heart failure type: diastolic Congestive heart failure chronicity: acute on chronic Qualified Code(s): I50.33 - Acute on chronic diastolic (congestive) heart failure (6) DM (diabetes mellitus), type 2, uncontrolled Current Visit: Yes Status: Chronic Assessment and plan: Medium dose SSI with ACHS accuchecks ADA diet Qualifiers: Diabetes mellitus complication status: with kidney complications Diabetes mellitus complication detail: with chronic kidney disease Diabetes mellitus shelter insulin use: with shelter use Chronic kidney disease stage: stage 3 (moderate) Qualified Code(s): E11.22 - Type 2 diabetes mellitus with diabetic chronic kidney disease; E11.65 - Type 2 diabetes mellitus with hyperglycemia; Z79.4 - terminal computer operator (current) use of insulin; E11.65 - Type 2 diabetes mellitus with hyperglycemia; E11.65 - Type 2 diabetes mellitus with hyperglycemia; E11.65 - Type 2 diabetes mellitus with hyperglycemia; N18.3 - Chronic kidney disease, stage 3 (moderate); N18.3 - Chronic kidney disease, stage 3 (moderate); Z79.4 - terminal computer operator (current) use of insulin; Z79.4 - intermediate (current) use of insulin; Z79.4 - intermediate (current) use of insulin (7) Hx of deep venous thrombosis Current Visit: Yes Status: Chronic Assessment and plan: Has IVC filter in place On coumadin, pharmacy dosing (8) Weakness Current Visit: Yes Status: Acute Assessment and plan: PT/OT eval refused by patient (9) Anemia Current Visit: Yes Status: Chronic Assessment and plan: hx of iron deficiency recently hospitalized for symptomatic anemia. colonoscopy done previously showing multiple polyps, recommendation was to follow up outpatient and repeat colonosocopy Plan: continue home dose ferrous sulfate continue to monitor H/H outpatient follow up with GI for colonoscopy Qualifiers: Anemia type: due to chronic kidney disease Chronic kidney disease stage: stage 4 (severe) Qualified Code(s): N18.4 - Chronic kidney disease, stage 4 ( severe); D63.1 - Anemia in chronic kidney disease; D63.1 - Anemia in chronic kidney disease (10) DVT prophylaxis Current Visit: Yes Status: Acute Assessment and plan: pharmacy dosing coumadin bridge with SubQ heparin until INR therapeutic (11) Morbid obesity Current Visit: Yes Status: Chronic Assessment and plan: lifestyle modifications advised - Subjective Interval history: Patient seen and examined today at bedside. Denies diarrhea. Admits sore throat , cough, chest pain, SOB. - Constitutional Vitals: Temp Pulse Resp BP Pulse Ox 98.6 F 85 18 167/75 95 01/16/17 07:26 01/16/17 07:26 01/16/17 10:24 01/16/17 07:26 01/16/17 10:24 General appearance: Present: A&O X 3, morbidly obese, answers questions appropriately - Head Head exam: Present: atraumatic, normocephalic - Eye Eye exam: Present: EOMI - Neck Neck exam general surgery: Present: full ROM - Respiratory Respiratory exam: Present: decreased breath sounds, rales (bibasilar, prolonged on Rt). Absent: respiratory distress - Cardiovascular Cardiovascular exam: Present: distant heart sounds, RRR, +S1, +S2 - GI/Abdominal GI/Abdominal exam: Present: soft. Absent: tenderness - Extremities Exam Extremities exam: Present: pedal edema (+3 LE pitting edema Lt, +1 LE pitting edema Rt. Rt sided stasis dermatitis.) - Neurological Exam Neurological exam: Present: alert, oriented X3, no focal deficits Internal Medicine: Result - Labs CBC & Chem 7: 01/16/17 06:00 01/16/17 06:00 Labs: Short CBC 01/16/17 Range/Units 06:00 WBC 6.2 (4.3-11.1) K/mcL Hgb 7.9 L (11.5-15.4) g/dL Hct 26.5 L (35.3-44.9) % Plt Count 230 (140-400) K/mcL Neutrophils # 4.4 (1.6-8.9) K/mcL BMP 01/16/17 06:00 Sodium 142 Potassium 3.7 Chloride 105 Carbon Dioxide 26 BUN 37 H Creatinine 2.51 H Glucose 225 H Calcium 7.9 L - ABG Interpretation ABG results: ABG ABG pH 7.34 pH Units (7.32-7.45) 01/16/17 05:06 ABG pCO2 58 mmHg (35-45) H 01/16/17 05:06 ABG pO2 73 mmHg (85-104) L 01/16/17 05:06 ABG O2 Saturation 93 % (95-98) L 01/16/17 05:06 PT/INR, D-dimer PT 12.5 Seconds (9.4-12.1) H 01/16/17 06:00 - VTE Reasons for not Prescribing Prophylaxis: Not indicated-Anticoagulated or INR therapeutic Consult Discharge Plan - Plan Referrals: Mauro Dockery MD [Primary Care Provider] - 01/20/17 1:15 pm () <Milan Ulloa - Last Filed: 01/16/17 19:03> Date of Encounter: 01/16/17 - Assessment and plan (1) Acute on chronic respiratory failure with hypoxia Current Visit: No Status: Chronic (2) RUPERT (obstructive sleep apnea) Current Visit: No Status: Chronic (3) CHF exacerbation Current Visit: No Status: Acute Qualifiers: Congestive heart failure type: diastolic Qualified Code(s): I50.33 - Acute on chronic diastolic (congestive) heart failure (4) Pulmonary edema Current Visit: No Status: Acute Qualifiers: Chronicity: acute Qualified Code(s): J81.0 - Acute pulmonary edema (5) Morbid obesity Current Visit: Yes Status: Chronic (6) Anemia Current Visit: Yes Status: Chronic Qualifiers: Anemia type: due to chronic kidney disease Chronic kidney disease stage: stage 4 (severe) Qualified Code(s): N18.4 - Chronic kidney disease, stage 4 ( severe); D63.1 - Anemia in chronic kidney disease; D63.1 - Anemia in chronic kidney disease (7) Type 2 diabetes mellitus Current Visit: No Status: Chronic Qualifiers: Diabetes mellitus complication status: with neurologic complications Diabetes mellitus complication detail: with polyneuropathy Diabetes mellitus ferry terminal agent insulin use: with shelter use Qualified Code(s): E11.42 - Type 2 diabetes mellitus with diabetic polyneuropathy; Z79.4 - intermediate (current) use of insulin (8) Hypothyroidism Current Visit: No Status: Chronic Qualifiers: Hypothyroidism type: acquired Qualified Code(s): E03.9 - Hypothyroidism, unspecified - Constitutional Vitals: Temp Pulse Resp BP Pulse Ox 99.1 F 91 18 159/67 96 01/16/17 18:33 01/16/17 18:33 01/16/17 18:33 01/16/17 18:33 01/16/17 18:33 Internal Medicine: Result - Labs CBC & Chem 7: 01/16/17 06:00 01/16/17 06:00 Labs: Short CBC 01/16/17 Range/Units 06:00 WBC 6.2 (4.3-11.1) K/mcL Hgb 7.9 L (11.5-15.4) g/dL Hct 26.5 L (35.3-44.9) % Plt Count 230 (140-400) K/mcL Neutrophils # 4.4 (1.6-8.9) K/mcL BMP 01/16/17 06:00 Sodium 142 Potassium 3.7 Chloride 105 Carbon Dioxide 26 BUN 37 H Creatinine 2.51 H Glucose 225 H Calcium 7.9 L - ABG Interpretation ABG results: ABG ABG pH 7.34 pH Units (7.32-7.45) 01/16/17 05:06 ABG pCO2 58 mmHg (35-45) H 01/16/17 05:06 ABG pO2 73 mmHg (85-104) L 01/16/17 05:06 ABG O2 Saturation 93 % (95-98) L 01/16/17 05:06 PT/INR, D-dimer PT 12.5 Seconds (9.4-12.1) H 01/16/17 06:00 - Attending Attestation I examined this patient and my medical decision-making was reviewed with the Resident Physician on 01/16/17. I agree with the documented findings, disposition and treatment plan as described except to the extent set forth below. Ms Mars is currently admitted for acute resp failure due to CHF. She has qualified for bipap at night it appears. She remains moderate to high risk due to potential for worsening resp status. Ms Mars slid out of the bed last night. No injury but she is complaining of diffuse aches. No fever or chills. Won't get up with therapy today. Breathing is about the same today. Exam Alert. Mild distress. Mucus membranes dry Heart distant Lungs diminished Abd soft Edema about the same I/P 1. Resp failure 2. Fall Further diagnoses and plan as above.
[2017-01-16] MEDS: Isosorbide MONOnitrate (24 HR) 30 MG TAB.ER.24H PO SCH (17:13)
[2017-01-16] MEDS ORDERED: *HR* Warfarin 3 MG TABLET PO SCH (18:00)
[2017-01-16] MEDS: clonazePAM 1 MG TABLET PO SCH (21:53)
[2017-01-17] MEDS: Ipratropium/Albuterol Neb 3 ML IH SCH (04:00)
[2017-01-17] MEDS: *HR* Heparin 5,000 UNIT/ML VIAL SQ SCH (06:32)
[2017-01-17 07:04] VITALS: BP 162/74
[2017-01-17 07:32] LABS: INR 1.2; Prothrombin Time 12.5 Seconds (9.4-12.1)
[2017-01-17] MEDS: Gabapentin 100 MG CAPSULE PO SCH (08:10)
[2017-01-17] MEDS: amLODIPine 5 MG TABLET PO SCH (08:10)
[2017-01-17] MEDS: Insulin LISPRO 300 UNITS/3 ML VIAL SQ SCH (08:11)
[2017-01-17] MEDS: Insulin DETEMIR 100 UNIT/ML X5UNITS SQ SCH (08:11)
--- NOTE | 2017-01-17 08:41 | Discharge Summary ---
<Shirlene Hoyt - Last Filed: 01/17/17 09:34> Date of Encounter: 01/17/17 Time of Encounter: 08:39 - Discharge Diagnosis (1) Dyspnea Priority: Primary Status: Resolved Qualifiers: Dyspnea type: dyspnea on exertion Qualified Code(s): R06.09 - Other forms of dyspnea (2) Hypertensive urgency Priority: Secondary Status: Resolved (3) CKD (chronic kidney disease) Priority: Secondary Status: Chronic Qualifiers: Chronic kidney disease stage: stage 3 (moderate) Qualified Code(s): N18.3 - Chronic kidney disease, stage 3 (moderate) (4) Diarrhea Priority: Secondary Status: Resolved Qualifiers: Diarrhea type: unspecified type Qualified Code(s): R19.7 - Diarrhea, unspecified (5) CHF (congestive heart failure) Priority: Primary Status: Chronic Qualifiers: Congestive heart failure type: diastolic Congestive heart failure chronicity: acute on chronic Qualified Code(s): I50.33 - Acute on chronic diastolic (congestive) heart failure (6) DM (diabetes mellitus), type 2, uncontrolled Priority: Secondary Status: Chronic Qualifiers: Diabetes mellitus complication status: with kidney complications Diabetes mellitus complication detail: with chronic kidney disease Diabetes mellitus bed bug exterminator insulin use: with [facility] use Chronic kidney disease stage: stage 3 (moderate) Qualified Code(s): E11.22 - Type 2 diabetes mellitus with diabetic chronic kidney disease; E11.65 - Type 2 diabetes mellitus with hyperglycemia; Z79.4 - intermediate teacher (current) use of insulin; E11.65 - Type 2 diabetes mellitus with hyperglycemia; E11.65 - Type 2 diabetes mellitus with hyperglycemia; E11.65 - Type 2 diabetes mellitus with hyperglycemia; N18.3 - Chronic kidney disease, stage 3 (moderate); N18.3 - Chronic kidney disease, stage 3 (moderate); Z79.4 - long-term (current) use of insulin; Z79.4 - intermediate teacher (current) use of insulin; Z79.4 - long-term (current) use of insulin (7) Hx of deep venous thrombosis Priority: Secondary Status: Chronic (8) Weakness Priority: Secondary Status: Acute (9) Anemia Priority: Secondary Status: Chronic Qualifiers: Anemia type: due to chronic kidney disease Chronic kidney disease stage: stage 4 (severe) Qualified Code(s): N18.4 - Chronic kidney disease, stage 4 ( severe); D63.1 - Anemia in chronic kidney disease; D63.1 - Anemia in chronic kidney disease (10) DVT prophylaxis Priority: Secondary Status: Acute (11) Morbid obesity Priority: Secondary Status: Chronic (12) Obesity hypoventilation syndrome Priority: Secondary Status: Chronic - Discharge Medications Prescriptions: Azithromycin [Zithromax] 250 mg PO Q24H #6 tablet Furosemide [Lasix] 60 mg PO BID #180 tablet predniSONE [PredniSONE] 40 mg PO DAILY #10 tablet Home Medications: Cyclobenzaprine [Flexeril] 10 mg PO TID 09/12/14 [History] Docusate [Colace] 100 mg PO TID 09/12/14 [History] Doxepin [Sinequan] 50 mg PO HS 09/12/14 [History] Meclizine [Antivert] 25 mg PO TID 09/12/14 [History] Allopurinol [Zyloprim 100 MG] 100 mg PO DAILY 03/22/15 [History] DiphenhydraMINE [Benadryl] 25 mg PO TID 03/22/15 [History] Exenatide Microspheres [Bydureon Pen] 2 mg SQ MO 03/22/15 [History] Lidocaine Patch [Lidoderm 5% patch] 1 - 3 patch TP DAILY 03/22/15 [History] Nitroglycerin [Nitrostat] 0.4 mg SL Q5M PRN 03/22/15 [History] Promethazine [Phenergan] 25 mg PO TID 03/22/15 [History] clonazePAM [Klonopin] 1 mg PO HS 03/22/15 [History] Metoprolol XL (24 HR) Succ [Toprol Xl] 25 mg PO DAILY 07/31/15 [History] Albuterol Neb [AccuNeb] 1.25 mg IH QID PRN 05/06/16 [History] Levothyroxine [Synthroid] 250 mcg PO QAM 05/06/16 [History] Nystatin POWDER [Nystop] 1 appl TP QID 05/06/16 [History] Rosuvastatin [Crestor] 20 mg PO HS 05/06/16 [History] Acetaminophen [Tylenol] 650 mg PO Q4-6H 11/10/16 [History] Omeprazole [PriLOSEC] 40 mg PO DAILY 11/10/16 [History] Isosorbide MONOnitrate (24 HR) [Imdur] 60 mg PO QPM #30 tab.er.24h 11/11/16 [Rx] Potassium Chloride [Klor-Con 10] 10 meq PO BID 11/11/16 [History] Gabapentin [Neurontin] 100 mg PO TID #90 capsule 11/27/16 [Rx] Insulin DETEMIR [Levemir] 100 unit SQ BID #2 vial 11/27/16 [Rx] Insulin LISPRO [HumaLOG] 18 units SQ TIDWM #2 vial 11/27/16 [Rx] Warfarin [Coumadin] 3 mg PO 1800 #5 tablet 11/27/16 [Rx] amLODIPine [Norvasc] 5 mg PO DAILY 01/07/17 [History] Ferrous Sulfate 325 mg PO BIDWM #60 tablet 01/11/17 [Rx] Azithromycin [Zithromax] 250 mg PO Q24H #6 tablet 01/17/17 [Rx] Furosemide [Lasix] 60 mg PO BID #180 tablet 01/17/17 [Rx] predniSONE [PredniSONE] 40 mg PO DAILY #10 tablet 01/17/17 [Rx] Allergies/Adverse Reactions: 3 Allergy/AdvReac Type Severity Reaction Status Date / Time aspirin Allergy Hives Verified 01/07/17 18:11 cephalexin [From Keflex] Allergy Difficulty Verified 01/07/17 18:11 Breathing codeine Allergy Hypertensio Verified 01/07/17 18:11 n Cortisone Allergy See Verified 01/07/17 18:11 Comments hydrocortisone Allergy Hypertensio Verified 01/07/17 18:11 n ibuprofen Allergy Hives Verified 01/07/17 18:11 Iodinated Contrast- Oral and Allergy See Verified 01/07/17 18:11 IV Dye Comments [Iodinated Contrast Media - IV Dye] lidocaine [From Xylocaine] Allergy See Verified 01/07/17 18:11 Comments loratadine [From Claritin] Allergy Hives Verified 01/07/17 18:11 methylprednisolone Allergy Hypertensio Verified 01/07/17 18:11 [From Solu-Medrol] n Penicillins Allergy See Verified 01/07/17 18:11 Comments prednisone Allergy Hypertensio Verified 01/07/17 18:11 n Procaine [From Novocain] Allergy See Verified 01/07/17 18:11 Comments propoxyphene [From Darvon] Allergy See Verified 01/07/17 18:11 Comments pseudoephedrine Allergy Hives Verified 01/07/17 18:11 [From Sudafed] ropinirole [From Requip] Allergy See Verified 01/07/17 18:11 Comments tramadol AdvReac See Verified 01/07/17 18:11 Comments Date of admission: 01/14/17 09:04 Primary care physician: Mauro Dockery MD Consults: 01/14/17 10:49 Consult to Invasive Line Access Team [CONS] Routine Reason for Consult: LIMITED ACCESS Line Type: EPIV 01/16/17 07:10 Consult to Cath Lab Technologist [CONS] Routine Reason for SW Consult: pt needs ecf Discharging clinician: Shirlene Hoyt Anticipated date of discharge: 01/17/17 - Patient Status Disposition: Home Health Service Condition: Fair Functional capacity at discharge: independent ambulation Overall status at discharge: patient is progressing back to baseline - Ambulatory Orders Ambulatory Orders: Basic Metabolic Panel [CHEM] Time Frame: 3 Days, Facility: [facility], Location: Lab - Discharge Instructions Instructions: Heart Failure (DC), Diabetes Mellitus Type 2 in Adults (DC), Chronic Hypertension (DC) Follow Up With: Mauro Dockery MD [Primary Care Provider] - 01/20/17 1:15 pm () Forms: ED Satisfaction Letter Additional Instructions: Take all your medications as prescribed. Follow a diabetic and cardiac diet. Restrict your fluids to 1.5 liters per day. Have labwork drawn within 3 days of discharge. See your PCP within 1 week of being discharged. Return to emergency department if symptoms return. - Diet and Activity Activity: increase activity as tolerated, wear oxygen at all times Diet: diabetic diet, low fat, low cholesterol Hospital course: Ms. Mars is a 61 year old female with PMHx of COPD requiring home O2, CHF, CKD, and DM admitted to the hospital on 01/14/17 for shortness of breath secondary to acute exacerbation of diastolic CHF. Acute CHF exacerbation likely multifactoral due to noncompliance with fluid restriction and diet, obesity hypoventilation syndrome. BNP elevated on admission @ 472 and CXR cardiomegaly with pleural effusions present. Initially placed on lasix, kidney function was monitored closely.Pt's creatinine increased during her diuresis. Her fluid balance was kept negative and she was placed on fluid restriction. Day of d/c pt complained of cough and was given 5 day course zithromax. Evaluated by PT/OT who recommended SNF after d/c. However, pt refused SNF and preferred to go home with home health. Patient counseled extensively on lifestyle modification, weight loss, fluid restriction. Pt INR subtherapeutic at discharge. She will have close follow up with PCP at discharge. Patient discharged home in stable condition. - Time Spent with Patient Total time spent providing and/or coordinating discharge services: - Constitutional Vitals: Temp Pulse Resp BP Pulse Ox 98.0 F 89 17 162/74 96 01/17/17 06:59 01/17/17 06:59 01/17/17 06:59 01/17/17 06:59 01/17/17 06:59 General appearance: Present: A&O X 3, morbidly obese, answers questions appropriately - Head Head exam: Present: atraumatic, normocephalic - Eye Eye exam: Present: EOMI - Neck Neck exam general surgery: Present: full ROM - Respiratory Respiratory exam: Present: CTAB. Absent: rales, respiratory distress, rhonchi, wheezes - Cardiovascular Cardiovascular exam: Present: RRR, +S1, +S2 Additional comments: Heart sounds distant d/t body habitus - GI/Abdominal GI/Abdominal exam: Present: normal bowel sounds, soft - Extremities Exam Extremities exam: Present: normal inspection, pedal edema (bilateral), warm. Absent: tenderness - Neurological Exam Neurological exam: Present: alert, oriented X3, no focal deficits - VTE Reasons for not Prescribing Prophylaxis: Not indicated-Anticoagulated or INR therapeutic <Milan Ulloa - Last Filed: 01/17/17 14:13> Date of Encounter: 01/17/17 - Discharge Diagnosis (1) Acute on chronic respiratory failure with hypoxia Priority: Primary Status: Chronic (2) RUPERT (obstructive sleep apnea) Priority: Secondary Status: Chronic (3) CHF exacerbation Priority: Primary Status: Acute Qualifiers: Congestive heart failure type: diastolic Qualified Code(s): I50.33 - Acute on chronic diastolic (congestive) heart failure (4) Pulmonary edema Priority: Primary Status: Acute Qualifiers: Chronicity: acute Qualified Code(s): J81.0 - Acute pulmonary edema (5) Morbid obesity Status: Chronic (6) Anemia Status: Chronic Qualifiers: Anemia type: due to chronic kidney disease Chronic kidney disease stage: stage 4 (severe) Qualified Code(s): N18.4 - Chronic kidney disease, stage 4 ( severe); D63.1 - Anemia in chronic kidney disease; D63.1 - Anemia in chronic kidney disease (7) Type 2 diabetes mellitus Priority: Secondary Status: Chronic Qualifiers: Diabetes mellitus complication status: with neurologic complications Diabetes mellitus complication detail: with polyneuropathy Diabetes mellitus bed bug exterminator insulin use: with bed bug exterminator use Qualified Code(s): E11.42 - Type 2 diabetes mellitus with diabetic polyneuropathy; Z79.4 - long-term (current) use of insulin (8) Hypothyroidism Priority: Secondary Status: Chronic Qualifiers: Hypothyroidism type: acquired Qualified Code(s): E03.9 - Hypothyroidism, unspecified Date of admission: 01/14/17 09:04 Primary care physician: Mauro Dockery MD Consults: 01/14/17 10:49 Consult to Invasive Line Access Team [CONS] Routine Reason for Consult: LIMITED ACCESS Line Type: EPIV 01/16/17 07:10 Consult to Cath Lab Technologist [CONS] Routine Reason for SW Consult: pt needs ecf Hospital course: Ms. Mars is a 61 year old female - Time Spent with Patient Total time spent providing and/or coordinating discharge services: 38min - Constitutional Vitals: Temp Pulse Resp BP Pulse Ox 98.0 F 89 17 162/74 98 01/17/17 06:59 01/17/17 06:59 01/17/17 06:59 01/17/17 06:59 01/17/17 10:12 - Attending Attestation I examined this patient and my medical decision-making was reviewed with the Resident Physician on 01/17/17. I agree with the documented findings, disposition and treatment plan as described except to the extent set forth below. Ms Mars has been admitted for respiratory failure related to fluid overload. She has been diuresed with improvement. She also was placed on bipap with improvement and did qualify for this at home. Today she is afebrile with stable vitals. She is ready for discharge home. Exam Alert. Comfortable. Mucus membranes dr Heart reg No wheeze Less edema Plan D/C home today. Follow up with PCP. Bipap arranged at discharge.
[2017-01-17] MEDS ORDERED: *HR* Warfarin 5 MG TABLET PO STA (08:53)
[2017-01-17] MEDS ORDERED: Furosemide 20 MG/2 ML VIAL IVP SCH (09:00)
[2017-01-17] MEDS ORDERED: Metoprolol XL (24 HR) Succ 25 MG TAB.ER.24H PO SCH (09:00)
--- NOTE | 2017-01-17 09:33 | Physician Discharge Referral ---
Home Health/Hosp Referral Info Transfer to: Home Health Provider in Charge Post Discharge: PCP - Diagnosis (1) Dyspnea Priority: Primary Status: Resolved (2) Hypertensive urgency Priority: Secondary Status: Resolved (3) CKD (chronic kidney disease) Priority: Secondary Status: Chronic (4) Diarrhea Priority: Secondary Status: Resolved (5) CHF (congestive heart failure) Priority: Primary Status: Chronic (6) DM (diabetes mellitus), type 2, uncontrolled Priority: Secondary Status: Chronic (7) Hx of deep venous thrombosis Priority: Secondary Status: Chronic (8) Weakness Priority: Secondary Status: Acute (9) Anemia Priority: Secondary Status: Chronic (10) DVT prophylaxis Priority: Secondary Status: Acute (11) Morbid obesity Priority: Secondary Status: Chronic (12) Obesity hypoventilation syndrome Priority: Secondary Status: Chronic - Respiratory Orders Oxygen / L per min (3L nasal cannula), Other (BiPAP nightly) Smoking Cessation: Smoking cessation has been advised. For more information, call the [place] Tobacco Quit Line at 4-081-ROXI-NOW. - Diet/Nutrition Diet/Nutrition Orders: Renal, Cardiac - Activity Activity Orders: Up ad [place], Ambulate - Services Needed Following services are medically necessary services: Nursing, Home Health Aide, Physical Therapy, Occupational Therapy - Transfer Medications Prescriptions: Azithromycin [Zithromax] 250 mg PO Q24H #6 tablet Furosemide [Lasix] 60 mg PO BID #180 tablet predniSONE [PredniSONE] 40 mg PO DAILY #10 tablet Home Medications: Cyclobenzaprine [Flexeril] 10 mg PO TID 09/12/14 [History] Docusate [Colace] 100 mg PO TID 09/12/14 [History] Doxepin [Sinequan] 50 mg PO HS 09/12/14 [History] Meclizine [Antivert] 25 mg PO TID 09/12/14 [History] Allopurinol [Zyloprim 100 MG] 100 mg PO DAILY 03/22/15 [History] DiphenhydraMINE [Benadryl] 25 mg PO TID 03/22/15 [History] Exenatide Microspheres [Bydureon Pen] 2 mg SQ MO 03/22/15 [History] Lidocaine Patch [Lidoderm 5% patch] 1 - 3 patch TP DAILY 03/22/15 [History] Nitroglycerin [Nitrostat] 0.4 mg SL Q5M PRN 03/22/15 [History] Promethazine [Phenergan] 25 mg PO TID 03/22/15 [History] clonazePAM [Klonopin] 1 mg PO HS 03/22/15 [History] Metoprolol XL (24 HR) Succ [Toprol Xl] 25 mg PO DAILY 07/31/15 [History] Albuterol Neb [AccuNeb] 1.25 mg IH QID PRN 05/06/16 [History] Levothyroxine [Synthroid] 250 mcg PO QAM 05/06/16 [History] Nystatin POWDER [Nystop] 1 appl TP QID 05/06/16 [History] Rosuvastatin [Crestor] 20 mg PO HS 05/06/16 [History] Acetaminophen [Tylenol] 650 mg PO Q4-6H 11/10/16 [History] Omeprazole [PriLOSEC] 40 mg PO DAILY 11/10/16 [History] Isosorbide MONOnitrate (24 HR) [Imdur] 60 mg PO QPM #30 tab.er.24h 11/11/16 [Rx] Potassium Chloride [Klor-Con 10] 10 meq PO BID 11/11/16 [History] Gabapentin [Neurontin] 100 mg PO TID #90 capsule 11/27/16 [Rx] Insulin DETEMIR [Levemir] 100 unit SQ BID #2 vial 11/27/16 [Rx] Insulin LISPRO [HumaLOG] 18 units SQ TIDWM #2 vial 11/27/16 [Rx] Warfarin [Coumadin] 3 mg PO 1800 #5 tablet 11/27/16 [Rx] amLODIPine [Norvasc] 5 mg PO DAILY 01/07/17 [History] Ferrous Sulfate 325 mg PO BIDWM #60 tablet 01/11/17 [Rx] Azithromycin [Zithromax] 250 mg PO Q24H #6 tablet 01/17/17 [Rx] Furosemide [Lasix] 60 mg PO BID #180 tablet 01/17/17 [Rx] predniSONE [PredniSONE] 40 mg PO DAILY #10 tablet 01/17/17 [Rx] Allergies/Adverse Reactions: 3 Allergy/AdvReac Type Severity Reaction Status Date / Time aspirin Allergy Hives Verified 01/07/17 18:11 cephalexin [From Keflex] Allergy Difficulty Verified 01/07/17 18:11 Breathing codeine Allergy Hypertensio Verified 01/07/17 18:11 n Cortisone Allergy See Verified 01/07/17 18:11 Comments hydrocortisone Allergy Hypertensio Verified 01/07/17 18:11 n ibuprofen Allergy Hives Verified 01/07/17 18:11 Iodinated Contrast- Oral and Allergy See Verified 01/07/17 18:11 IV Dye Comments [Iodinated Contrast Media - IV Dye] lidocaine [From Xylocaine] Allergy See Verified 01/07/17 18:11 Comments loratadine [From Claritin] Allergy Hives Verified 01/07/17 18:11 methylprednisolone Allergy Hypertensio Verified 01/07/17 18:11 [From Solu-Medrol] n Penicillins Allergy See Verified 01/07/17 18:11 Comments prednisone Allergy Hypertensio Verified 01/07/17 18:11 n Procaine [From Novocain] Allergy See Verified 01/07/17 18:11 Comments propoxyphene [From Darvon] Allergy See Verified 01/07/17 18:11 Comments pseudoephedrine Allergy Hives Verified 01/07/17 18:11 [From Sudafed] ropinirole [From Requip] Allergy See Verified 01/07/17 18:11 Comments tramadol AdvReac See Verified 01/07/17 18:11 Comments Certification: Further, I certify that my clinical findings support that this patient is homebound (i.e. absences from home require considerable and taxing effort and are for medical reasons or sikhism services or infrequently or short duration when for other reasons) because: Homebound Reason: Patient requires assistance of a person or device to safely leave home Attestation: My signature below is to certify that this patient is under my care and that I, or nurse practitioner, or a physician's exceptional children teacher assistant working with me, has a face-to -face encounter with this patient.
[2017-01-17] MEDS: Nystatin POWDER 30 GM BOTTLE TP SCH (09:57)
[2017-01-18] MEDS ORDERED: *HR* Warfarin 3 MG TABLET PO SCH (18:00)
== END 2017-01-17 10:53 | disposition home health service (06) | DRG 194 ==
LOC: EMEROO 22:35 → 2NNU 22:35 → SUATTDRO 01-14 01:24 → 2NNU 01-14 02:20 → 2ANU 01-15 15:24
PROVIDERS: ADMIT Pediatrics; ATTEND Internal Medicine

== ENCOUNTER 2017-02-05 15:03 | Inpatient (IN) ==
[2017-02-05 17:09] LABS: Basophils % 0.5 %; Eosinophils # 0.2 K/mcL (0.0-0.6); Hematocrit 33.3 % (35.3-44.9); Hemoglobin 9.8 g/dL (11.5-15.4); Immature Granulocytes % 0.5 % (0-4); Lymphocytes % 23.8 %; Mean Corpuscular HGB Conc 29.4 g/dL (31.6-35.5); Mean Corpuscular Hemoglobin 28.6 pg (28.0-33.3); Mean Corpuscular Volume 97.1 fL (83.0-100.0); Mean Platelet Volume 9.5 fL (9.4-12.4); Monocytes # 0.4 K/mcL (0.0-1.3); Monocytes % 10.5 %; Neutrophils # 2.4 K/mcL (1.6-8.9); Platelet Count 243 K/mcL (140-400); Red Blood Count 3.43 M/mcL (3.82-4.97); Red Cell Distribution Width 17.2 % (11.5-14.5); Segmented Neutrophils % 58.7 %
[2017-02-05 17:22] LABS: Calcium 8.6 mg/dL (8.6-10.3); Potassium 4.6 mEq/L (3.5-5.1)
[2017-02-05] MEDS ORDERED: Nitroglycerin 25 MG/250 ML INFUS..BTL IVC SCH (18:15)
--- NOTE | 2017-02-05 18:29 | Emergency Department Note ---
Disposition Clinical Impression: Hypertensive urgency Chest pain Qualifiers: Chest pain type: unspecified Qualified Code(s): R07.9 - Chest pain, unspecified Disposition: Admitted As Inpatient SOB HPI - General Chief Complaint: ED Shortness of Breath/Dyspnea Stated Complaint: JEANNINE Time Seen by Provider: 02/05/17 16:44 Source: patient Mode of arrival: private vehicle Limitations: no limitations Nursing Notes Reviewed: Yes Vital Signs Reviewed: Yes - History of Present Illness 62-year-old female history of diabetes, hypertension, hyperlipidemia, CHF, COPD who presents to the ER due to shortness of breath and cough. Patient reports she has not felt well since discharge from the hospital. Reports that it is better when she is doing it makes her breathing worse. Also reports she has had chest pain during this time without radiation. Denies any fevers, sore throat or runny nose. Has had a cough without productive sputum. No nausea vomiting or diarrhea. Noted to be hypertensive here which she reports is usual for her. No other complaints. Pt Subjective Complaint: shortness of breath, cough, chest pain Onset (ago): day(s) Context: recent illness Severity: moderate Consistency/Duration: intermittent Improves with: nothing Worsens with: nothing Known history of: COPD, congestive heart failure Associated symptoms: Reports: chest pain, cough. Denies: fever Treatment prior to arrival: oxygen Cough present: Yes Cough Description: Involuntary Cough Frequency: Intermittent Sputum production: No Sputum Amount: None - Related Data Home oxygen amount: 3 liters Home Medications Medication Instructions Recorded Confirmed Cyclobenzaprine [Flexeril] 10 mg PO TID 09/12/14 02/05/17 Docusate [Colace] 100 mg PO TID 09/12/14 02/05/17 Doxepin [Sinequan] 50 mg PO HS 09/12/14 02/05/17 Meclizine [Antivert] 25 mg PO TID 09/12/14 02/05/17 Allopurinol [Zyloprim 100 MG] 100 mg PO DAILY 03/22/15 02/05/17 DiphenhydraMINE [Benadryl] 25 mg PO TID 03/22/15 02/05/17 Exenatide Microspheres [Bydureon 2 mg SQ MO 03/22/15 01/07/17 Pen] Lidocaine Patch [Lidoderm 5% patch] 1 - 3 patch TP DAILY 03/22/15 02/05/17 Nitroglycerin [Nitrostat] 0.4 mg SL Q5M PRN 03/22/15 02/05/17 Promethazine [Phenergan] 25 mg PO TID 03/22/15 02/05/17 clonazePAM [Klonopin] 1 mg PO HS 03/22/15 02/05/17 Metoprolol XL (24 HR) Succ [Toprol 25 mg PO DAILY 07/31/15 02/05/17 Xl] Albuterol Neb [AccuNeb] 1.25 mg IH QID PRN 05/06/16 02/05/17 Levothyroxine [Synthroid] 250 mcg PO QAM 05/06/16 02/05/17 Nystatin POWDER [Nystop] 1 appl TP QID 05/06/16 02/05/17 Rosuvastatin [Crestor] 20 mg PO HS 05/06/16 02/05/17 Acetaminophen [Tylenol] 650 mg PO Q4-6H 11/10/16 02/05/17 Omeprazole [PriLOSEC] 40 mg PO DAILY 11/10/16 02/05/17 Potassium Chloride [Klor-Con 10] 10 meq PO BID 11/11/16 02/05/17 amLODIPine [Norvasc] 5 mg PO DAILY 01/07/17 02/05/17 Insulin LISPRO [HumaLOG] 32 units SQ TIDWM 02/05/17 02/05/17 Previous Rx's Medication Instructions Recorded Isosorbide MONOnitrate (24 HR) 60 mg PO QPM #30 tab.er.24h 11/11/16 [Imdur] Gabapentin [Neurontin] 100 mg PO TID #90 capsule 11/27/16 Insulin DETEMIR [Levemir] 100 unit SQ BID #2 vial 11/27/16 Warfarin [Coumadin] 3 mg PO 1800 #5 tablet 11/27/16 Ferrous Sulfate 325 mg PO BIDWM #60 tablet 01/11/17 Furosemide [Lasix] 60 mg PO BID #180 tablet 01/17/17 Allergies Allergy/AdvReac Type Severity Reaction Status Date / Time aspirin Allergy Hives Verified 01/07/17 18:11 cephalexin [From Keflex] Allergy Difficulty Verified 01/07/17 18:11 Breathing codeine Allergy Hypertensio Verified 01/07/17 18:11 n Cortisone Allergy See Verified 01/07/17 18:11 Comments hydrocortisone Allergy Hypertensio Verified 01/07/17 18:11 n ibuprofen Allergy Hives Verified 01/07/17 18:11 Iodinated Contrast- Oral and Allergy See Verified 01/07/17 18:11 IV Dye Comments [Iodinated Contrast Media - IV Dye] lidocaine [From Xylocaine] Allergy See Verified 01/07/17 18:11 Comments loratadine [From Claritin] Allergy Hives Verified 01/07/17 18:11 methylprednisolone Allergy Hypertensio Verified 01/07/17 18:11 [From Solu-Medrol] n Penicillins Allergy See Verified 01/07/17 18:11 Comments prednisone Allergy Hypertensio Verified 01/07/17 18:11 n Procaine [From Novocain] Allergy See Verified 01/07/17 18:11 Comments propoxyphene [From Darvon] Allergy See Verified 01/07/17 18:11 Comments pseudoephedrine Allergy Hives Verified 01/07/17 18:11 [From Sudafed] ropinirole [From Requip] Allergy See Verified 01/07/17 18:11 Comments tramadol AdvReac See Verified 01/07/17 18:11 Comments All systems ED: reviewed and negative except as stated. Constitutional: Denies: fever Cardiovascular: Reports: chest pain Respiratory: Reports: cough, dyspnea. Denies: sputum production Gastrointestinal: Denies: abdominal pain, nausea, vomiting, diarrhea Past Medical History - Past Medical History Attestation: Yes The following information was validated with the patient. Source: patient Medical history: Reports: arthritis, CHF, COPD, DVT, diabetes, GERD, hyperlipidemia, hypertension, migraine, osteoporosis, renal disease, thyroid disease, other Surgical history: Reports: appendectomy, hysterectomy, orthopedic, other, other , IVC filter Psychiatric history: Reports: anxiety, depression COMPLIANCE CONSULTANT history: Reports: bilateral 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 - Social History Smoking Status: Former smoker Smokeless Tobacco Status: No Alcohol use: Reports: none Drug use: Reports: none Physical Exam - General Limitations: no limitations General appearance: alert, in no apparent distress - Head Head exam: atraumatic, normocephalic - Eye Eye exam: Present: normal appearance - ENT ENT exam: normal exam, normal oropharynx - Neck Neck exam: Present: normal inspection, full ROM - Chest Chest inspection: Present: normal inspection, symmetric chest wall rise - Respiratory Respiratory exam: Present: normal lung sounds bilaterally - Cardiovascular Cardiovascular exam: Present: regular rate, normal rhythm, normal heart sounds - Abdominal Exam Abdominal exam: Present: soft, Non-Tender. Absent: tenderness - Extremities Exam Extremities exam: Present: normal inspection, full ROM - Expanded Upper Extremity Exam Shoulder exam: Present: normal inspection, full ROM Arm exam: Present: normal inspection, full ROM Elbow exam: Present: normal inspection, full ROM Forearm/Wrist exam: Present: normal inspection, full ROM Hand exam: Present: normal inspection, full ROM - Expanded Lower Extremity Exam Hip/Pelvis exam: Present: normal inspection, full ROM Upper leg exam: Present: normal inspection, full ROM Knee exam: Present: normal inspection, full ROM Lower leg exam: Present: normal inspection, full ROM Ankle exam: Present: normal inspection, full ROM Foot/toe exam: Present: normal inspection, full ROM - Neurological Exam Neurological exam: Present: alert, other (GCS 15. Nonfocal.) - Psychiatric Psychiatric exam: Present: normal affect - Skin Skin exam: Present: warm, dry, intact Course Course Narrative: Patient seen and examined. Vital signs reviewed. She is noted to be profoundly hypertensive here. We will obtain an EKG, chest x-ray as well as labs. We will start nitroglycerin drip for hypertensive urgency. Vital Signs Temperature 97.6 F 02/05/17 15:07 Pulse Rate 83 02/05/17 15:07 Respiratory Rate 20 02/05/17 15:07 Blood Pressure 203/93 02/05/17 15:07 O2 Sat by Pulse Oximetry 93 02/05/17 15:07 Temperature 98.2 F 02/06/17 06:35 Pulse Rate 79 02/06/17 06:35 Respiratory Rate 16 02/06/17 06:35 Blood Pressure 148/63 02/06/17 06:35 O2 Sat by Pulse Oximetry 96 02/06/17 06:35 Oxygen Delivery Oxygen Delivery Nasal Cannula Shortness of Breath/Dyspnea - [facility] Narrative Medical decision making narrative: 62-year-old female presents to the ER due to shortness of breath. Symptoms for several days. Also reporting chest pain. EKG shows no ischemic findings. Chest x-ray without evidence of pneumonia or fluid overload. Labs reviewed with troponin of 0.04 in the setting of renal insufficiency. Patient is allergic to aspirin. Given nitroglycerin due to hypertensive urgency. Patient will be admitted to the hospitalist service. - Lab Data Lab results reviewed: Yes I reviewed the patient's lab results. Result diagrams: 02/06/17 03:09 02/06/17 03:09 Lab Results 02/05/17 02/05/17 02/05/17 Range/Units 16:58 16:58 16:58 WBC 4.0 L (4.3-11.1) K/mcL RBC 3.43 L (3.82-4.97) M/mcL Hgb 9.8 L (11.5-15.4) g/dL Hct 33.3 L (35.3-44.9) % MCV 97.1 (83.0-100.0) fL MCH 28.6 (28.0-33.3) pg MCHC 29.4 L (31.6-35.5) g/dL RDW 17.2 H (11.5-14.5) % Plt Count 243 (140-400) K/mcL MPV 9.5 (9.4-12.4) fL Immature Gran % 0.5 (0-4) % Seg Neutrophils % 58.7 % Lymphocytes % 23.8 % Monocytes % 10.5 % Eosinophils % 6.0 % Basophils % 0.5 % Neutrophils # 2.4 (1.6-8.9) K/mcL Lymphocytes # 1.0 (0.6-4.6) K/mcL Monocytes # 0.4 (0.0-1.3) K/mcL Eosinophils # 0.2 (0.0-0.6) K/mcL Basophils # 0.0 (0.0-0.2) K/mcL Sodium 139 (136-145) mEq/L Potassium 4.6 (3.5-5.1) mEq/L Chloride 102 (98-107) mEq/L Carbon Dioxide 32 H (23-29) mEq/L BUN 26 H (8-23) mg/dL Creatinine 2.50 H (0.60-1.20) mg/dL Est GFR ( Amer) 24 L (> 60) Est GFR (Non-Af Amer) 19 L (> 60) BUN/Creatinine Ratio 10 (6-26) Glucose 143 H (70-105) mg/dL Calculated Osmolality 295 (280-300) Lactic Acid 1.2 (0.5-2.2) mmol/L Calcium 8.6 (8.6-10.3) mg/dL Troponin I (< 0.04) ng/mL B-Natriuretic Peptide (Less than 100) pg/mL 02/05/17 02/05/17 Range/Units 16:58 16:58 WBC (4.3-11.1) K/mcL RBC (3.82-4.97) M/mcL Hgb (11.5-15.4) g/dL Hct (35.3-44.9) % MCV (83.0-100.0) fL MCH (28.0-33.3) pg MCHC (31.6-35.5) g/dL RDW (11.5-14.5) % Plt Count (140-400) K/mcL MPV (9.4-12.4) fL Immature Gran % (0-4) % Seg Neutrophils % % Lymphocytes % % Monocytes % % Eosinophils % % Basophils % % Neutrophils # (1.6-8.9) K/mcL Lymphocytes # (0.6-4.6) K/mcL Monocytes # (0.0-1.3) K/mcL Eosinophils # (0.0-0.6) K/mcL Basophils # (0.0-0.2) K/mcL Sodium (136-145) mEq/L Potassium (3.5-5.1) mEq/L Chloride (98-107) mEq/L Carbon Dioxide (23-29) mEq/L BUN (8-23) mg/dL Creatinine (0.60-1.20) mg/dL Est GFR ( Amer) (> 60) Est GFR (Non-Af Amer) (> 60) BUN/Creatinine Ratio (6-26) Glucose (70-105) mg/dL Calculated Osmolality (280-300) Lactic Acid (0.5-2.2) mmol/L Calcium (8.6-10.3) mg/dL Troponin I 0.04 H* (< 0.04) ng/mL B-Natriuretic Peptide 276 H (Less than 100) pg/mL - Radiology Data Radiology results reviewed: Yes I reviewed the patient's radiology results. Chest X-Ray 02/05/17 15:34 IMPRESSION: Cardiomegaly with no acute airspace findings. D/ / Artemio Luna MD / Artemio Luna MD Interpreting Provider: Artemio Luna MD - EKG Data EKG attestation: Yes I reviewed and interpreted this EKG. EKG results narrative: EKG demonstrates sinus rhythm with a rate of 80 bpm. Normal axis. Normal intervals. Normal R-wave progression. Nonspecific ST-T wave changes in leads 3 and aVF. No gross ST elevations or depressions. No acute ischemic findings. No significant changes from previous EKG dated 01/14/17. Attestation Statement - Attestation Attestation: I examined this patient and my medical decision-making was reviewed with the Resident Physician, Dr. Newsome. I agree with the documented findings, disposition and treatment plan as described except to the extent set forth below. Pt is a 62 yo wf who presents to the eR with c/o diffuse CP, grad worsening SOB and nonprod cough. Pt denies any F/C, no prod of cough, no back/flank pain, no abd pain, no post-tussive emesis. Pt in NAD on arrival to ED but elev BP. Pt denies any BRICE's, no visual changes, no focal neuro deficits/slurred speech. Pt with numerous ccardiac risk factors and hx CAD. Pt states she is compliant with BP meds, and denies any recent changes in meds or difficulty tolerating meds. I agree with pt's PE findings as documented. Pt hypertensive on arrival. Allergic to ASA. EKG shows NSR, no acute ischemia and no changes compared to prior EKG. Pt CXR wnl. Labs show A on C KI, trop 0.04 in setting of SUDHIR. Pt started on nitro gtt for CP and elev BP and will be admitted for further eval of CP and HTN urgency.
--- NOTE | 2017-02-05 20:43 | Internal Med History&Physical ---
Date of Encounter: 02/05/17 Time of Encounter: 20:35 Assessment and Plan (1) Hypertensive urgency Current visit: No Status: Resolved Patient is afebril and in no acute distress but complains of chest pain associated with her back pain. She states the chest pain is worse with deep inspiration and expiration. CXR shows cardiomegaly with no acute processes. EKG shows no STEMI or any acute ischemic changes. Repeat BP on exam was 192/ 165. Troponins are elevated at 0.04. BNP is 276. Lactate is normal. 1. Patient is started on the Nitro drip in the ED. Will continue drip and monitor. 2. Place patient on telemetry. 3. Trend series of troponins. 4. Fluid restriction and cardiac and diabetic diet. 5. Will also give home blood pressure medications now. (2) Diabetes Current visit: No Status: Chronic Will continue home meds. 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 Will order BMP in the morning. Continue to monitor the patient. Will continue patient on home medications. Qualifiers: Chronic kidney disease stage: stage 3 (moderate) Qualified Code(s): N18.3 - Chronic kidney disease, stage 3 (moderate) (4) Hyperlipidemia Current visit: No Status: Chronic Qualifiers: Hyperlipidemia type: unspecified Qualified Code(s): E78.5 - Hyperlipidemia , unspecified (5) DVT prophylaxis Current visit: No Status: Acute Will continue home medication. Patient is on Warfarin. (6) Hypertension Current visit: No Status: Chronic Qualifiers: Hypertension type: essential hypertension Qualified Code(s): I10 - Essential (primary) hypertension (7) Elevated troponin Current visit: No Status: Acute Troponins elevated at 0.04. Will trend series of troponins. (8) CHF (congestive heart failure) Current visit: No Status: Chronic CHF is stable. Will continue to monitor the patient. Qualifiers: Congestive heart failure type: diastolic Congestive heart failure chronicity: acute on chronic Qualified Code(s): I50.33 - Acute on chronic diastolic (congestive) heart failure (9) COPD (chronic obstructive pulmonary disease) Current visit: Yes Status: Acute Patient is on 3 L of oxygen at home. Qualifiers: Qualified Code(s): J44.9 - Chronic obstructive pulmonary disease, unspecified Internal Medicine - H&P: HPI Chief complaint: Back pain, SOB, Chest pain Admitted From: Emergency Dept History of present illness: Ms. Mars is a 62 year old female with a PMHx of DM, HTN, CHF, hyperlipidemia , COPD, DVT, Stage 4 renal failure, anemia, TIA, and DVT who presents to the ED today for SOB, chest pain, and back pain. The patient stated that she was recently discharged on January 17, 2017 after being admitted for CHF exacerbation. She stated that on Jan.17, she slid out of bed and fell on to the floor. She denies head trauma or LOC, but admits that since she fell, her back has been hurting her. She describes the back pain as constant and sharp pain that radiates across the right side of her back into the front of her chest and down her lumbar spine. She states that the back pain is worse with inspiration and expiration and improves with laying still. She denies any new numbness or tingling, loss of bowel movements, or new urinary retention. She also complains of chest pain that she associates with her back pain. She also complains of shortness of breath that comes on when her back pain is exacerbated. She admits the SOB is not different from her baseline. She is on 3L of oxygen at home. She states that the chest pain and sob is not the same as her CHF exacerbation. The patient has hypertensive urgency in the room and she states that her blood pressure is never that high (192/165). She denies any new changes in her medication, any recent illness, or recent travel. She admits diffuse abdominal pain. She denies any headaches, vision changes, palpitations, new shortness of breath, diarrhea, constipation, dysuria, hematuria, vaginal discharge, and any weaknesses. Past Med Surg Social Fam HX - Past Medical History Medical history: arthritis, CHF, COPD, DVT, diabetes, GERD, hyperlipidemia, hypertension, migraine, osteoporosis, renal disease, thyroid disease, other Psychiatric history: anxiety, depression - Past Surgical History Surgical History: appendectomy, hysterectomy, orthopedic, other, other, IVC filter - Social History Smoking Status: Former smoker Smokeless Tobacco Status: No Alcohol use: none Drug use: none - Family History Father Living Status: Hx Family GI Disorders: No Mother Living Status: Hx Family Cardiac Disorders: Yes Hx Family Cancer: Yes Hx Family GI Disorders: No Hx Family Endocrine Disorder: Yes (DIABETES MELLITUS.) Internal Medicine - H&P: Meds Cyclobenzaprine [Flexeril] 10 mg PO TID 09/12/14 [History] Docusate [Colace] 100 mg PO TID 09/12/14 [History] Doxepin [Sinequan] 50 mg PO HS 09/12/14 [History] Meclizine [Antivert] 25 mg PO TID 09/12/14 [History] Allopurinol [Zyloprim 100 MG] 100 mg PO DAILY 03/22/15 [History] DiphenhydraMINE [Benadryl] 25 mg PO TID 03/22/15 [History] Exenatide Microspheres [Bydureon Pen] 2 mg SQ MO 03/22/15 [History] Lidocaine Patch [Lidoderm 5% patch] 1 - 3 patch TP DAILY 03/22/15 [History] Nitroglycerin [Nitrostat] 0.4 mg SL Q5M PRN 03/22/15 [History] Promethazine [Phenergan] 25 mg PO TID 03/22/15 [History] clonazePAM [Klonopin] 1 mg PO HS 03/22/15 [History] Metoprolol XL (24 HR) Succ [Toprol Xl] 25 mg PO DAILY 07/31/15 [History] Albuterol Neb [AccuNeb] 1.25 mg IH QID PRN 05/06/16 [History] Levothyroxine [Synthroid] 250 mcg PO QAM 05/06/16 [History] Nystatin POWDER [Nystop] 1 appl TP QID 05/06/16 [History] Rosuvastatin [Crestor] 20 mg PO HS 05/06/16 [History] Acetaminophen [Tylenol] 650 mg PO Q4-6H 11/10/16 [History] Omeprazole [PriLOSEC] 40 mg PO DAILY 11/10/16 [History] Isosorbide MONOnitrate (24 HR) [Imdur] 60 mg PO QPM #30 tab.er.24h 11/11/16 [Rx] Potassium Chloride [Klor-Con 10] 10 meq PO BID 11/11/16 [History] Gabapentin [Neurontin] 100 mg PO TID #90 capsule 11/27/16 [Rx] Insulin DETEMIR [Levemir] 100 unit SQ BID #2 vial 11/27/16 [Rx] Warfarin [Coumadin] 3 mg PO 1800 #5 tablet 11/27/16 [Rx] amLODIPine [Norvasc] 5 mg PO DAILY 01/07/17 [History] Ferrous Sulfate 325 mg PO BIDWM #60 tablet 01/11/17 [Rx] Furosemide [Lasix] 60 mg PO BID #180 tablet 01/17/17 [Rx] Insulin LISPRO [HumaLOG] 32 units SQ TIDWM 02/05/17 [History] 3 Allergy/AdvReac Type Severity Reaction Status Date / Time aspirin Allergy Hives Verified 01/07/17 18:11 cephalexin [From Keflex] Allergy Difficulty Verified 01/07/17 18:11 Breathing codeine Allergy Hypertensio Verified 01/07/17 18:11 n Cortisone Allergy See Verified 01/07/17 18:11 Comments hydrocortisone Allergy Hypertensio Verified 01/07/17 18:11 n ibuprofen Allergy Hives Verified 01/07/17 18:11 Iodinated Contrast- Oral and Allergy See Verified 01/07/17 18:11 IV Dye Comments [Iodinated Contrast Media - IV Dye] lidocaine [From Xylocaine] Allergy See Verified 01/07/17 18:11 Comments loratadine [From Claritin] Allergy Hives Verified 01/07/17 18:11 methylprednisolone Allergy Hypertensio Verified 01/07/17 18:11 [From Solu-Medrol] n Penicillins Allergy See Verified 01/07/17 18:11 Comments prednisone Allergy Hypertensio Verified 01/07/17 18:11 n Procaine [From Novocain] Allergy See Verified 01/07/17 18:11 Comments propoxyphene [From Darvon] Allergy See Verified 01/07/17 18:11 Comments pseudoephedrine Allergy Hives Verified 01/07/17 18:11 [From Sudafed] ropinirole [From Requip] Allergy See Verified 01/07/17 18:11 Comments tramadol AdvReac See Verified 01/07/17 18:11 Comments All Systems PM: A 10-system review of systems was performed and is negative for pertinent findings except as documented above in the HPI. - Constitutional Vitals: Temp Pulse Resp BP Pulse Ox 97.6 F 79 12 203/93 96 02/05/17 15:07 02/05/17 17:12 02/05/17 17:12 02/05/17 15:07 02/05/17 17:41 General appearance: Present: A&O X 3, morbidly obese. Absent: pleasant, no acute distress - Head Head exam: Present: atraumatic, normocephalic - Eye Eye exam: Present: PERRL, conjuntiva pink, sclera anicteric Pupils: Present: PERRL - Neck Neck exam general surgery: Present: supple, trachea midline. Absent: lymphadenopathy - Respiratory Respiratory exam: Present: CTAB. Absent: accessory muscle use, rales, rhonchi, wheezes - Cardiovascular Cardiovascular exam: Present: RRR, +S1, +S2. Absent: diastolic murmur, gallop, rubs, systolic murmur - GI/Abdominal GI/Abdominal exam: Present: normal bowel sounds, soft, tenderness (tenderness to palpation in the RUQ and umbilical region), no peritoneal signs. Absent: distended - Extremities Exam Extremities exam: Present: warm, radial pulses palpable and symmetrical. Absent : calf tenderness, cyanotic, pedal edema - Back Exam Back exam: Present: tenderness (tenderness to palpation at T7 down to L2. Visual inspection is normal except a blister is present on the lower back. No drainage from the blister. ). Absent: CVA tenderness (L), CVA tenderness (R) - Neurological Exam Neurological exam: Present: CN II-XII intact, oriented X3, no focal deficits. Absent: pronater drift, facial droop, speech deficit - Skin Skin exam: Present: dry, intact Internal Med - H&P Results - Labs CBC & Chem 7: 02/05/17 16:58 02/05/17 16:58 - EKG Data -: EKG Interpreted by Myself EKG shows normal: sinus rhythm Rate: normal
[2017-02-05] MEDS ORDERED: Naloxone 0.4 MG/ML INJ IVP PRN (21:01)
[2017-02-05] MEDS ORDERED: Acetaminophen 325 MG TABLET PO PRN (21:01)
[2017-02-05] MEDS ORDERED: Nitroglycerin 0.4 MG TAB.SUBL SL PRN (21:09)
[2017-02-05] MEDS ORDERED: Albuterol Neb 1.25 MG/3 ML VIAL IH PRN (21:09)
[2017-02-05] MEDS ORDERED: clonazePAM 1 MG TABLET PO SCH (22:32)
[2017-02-05] MEDS: Metoprolol XL (24 HR) Succ 25 MG TAB.ER.24H PO SCH (23:59)
[2017-02-06] MEDS ORDERED: Dextrose Gel 15 GM/37.5 ML TUBE PO PRN ×2 (02:41)
[2017-02-06] MEDS ORDERED: *HR* Dextrose 50 % in Water (Syg) 50 ML SYRINGE IVP PRN (02:41)
[2017-02-06] MEDS ORDERED: D5% in Water 1,000 ML IVC PRN (02:41)
[2017-02-06 03:31] LABS: Basophils % 0.3 %; Eosinophils # 0.2 K/mcL (0.0-0.6); Eosinophils % 5.2 %; Hematocrit 31.2 % (35.3-44.9); Hemoglobin 9.2 g/dL (11.5-15.4); Immature Granulocytes % 0.3 % (0-4); Lymphocytes # 0.9 K/mcL (0.6-4.6); Lymphocytes % 22.8 %; Mean Corpuscular HGB Conc 29.5 g/dL (31.6-35.5); Mean Corpuscular Hemoglobin 28.6 pg (28.0-33.3); Mean Corpuscular Volume 96.9 fL (83.0-100.0); Mean Platelet Volume 9.5 fL (9.4-12.4); Monocytes # 0.4 K/mcL (0.0-1.3); Monocytes % 11.5 %; Neutrophils # 2.3 K/mcL (1.6-8.9); Platelet Count 221 K/mcL (140-400); Red Blood Count 3.22 M/mcL (3.82-4.97); Red Cell Distribution Width 17.2 % (11.5-14.5); Segmented Neutrophils % 59.9 %
[2017-02-06 03:35] LABS: INR 1.2; Prothrombin Time 12.8 Seconds (9.4-12.1)
[2017-02-06 03:38] LABS: Activated Partial Thrombo Time 26.9 Seconds (26.0-36.0)
[2017-02-06 03:52] LABS: Calcium 8.2 mg/dL (8.6-10.3); Magnesium 1.3 mg/dL (1.6-2.6); Phosphorous 4.2 mg/dL (2.7-4.5); Potassium 4.2 mEq/L (3.5-5.1)
[2017-02-06] MEDS ORDERED: Gabapentin 100 MG CAPSULE PO SCH (09:00)
[2017-02-06] MEDS: Gabapentin 100 MG CAPSULE PO SCH ×4 (09:52→22:02)
[2017-02-06] MEDS: Furosemide 20 MG TABLET PO SCH ×2 (09:53→17:55)
[2017-02-06] MEDS: Metoprolol XL (24 HR) Succ 25 MG TAB.ER.24H PO SCH (09:53)
[2017-02-06] MEDS: Insulin LISPRO 300 UNITS/3 ML VIAL SQ SCH ×3 (09:54→17:55)
[2017-02-06] MEDS: amLODIPine 5 MG TABLET PO SCH ×2 (09:54)
[2017-02-06] MEDS ORDERED: clonazePAM 1 MG TABLET PO PRN (11:20)
[2017-02-06] MEDS: Nystatin POWDER 30 GM BOTTLE TP SCH ×3 (14:10→22:03)
--- NOTE | 2017-02-06 15:54 | Internal Med Progress Note ---
Date of Encounter: 02/06/17 Time of Encounter: 10:45 - Assessment and plan (1) Hypertensive urgency Current Visit: Yes Status: Acute Assessment and plan: improving. Remains on IV nitroglycerin. resumed home medications. We will wean down nitroglycerin drip. (2) Low back pain Current Visit: Yes Status: Acute Assessment and plan: improving compared to yesterday. Continue supportive care. pain control Qualifiers: Chronicity: chronic Back pain laterality: midline Sciatica presence: without sciatica Qualified Code(s): M54.5 - Low back pain; G89.29 - Other chronic pain; G89.29 - Other chronic pain (3) CHF (congestive heart failure) Current Visit: Yes Status: Chronic Assessment and plan: Continue oral Lasix. Patient having good urine output Qualifiers: Congestive heart failure type: diastolic Congestive heart failure chronicity: acute on chronic Qualified Code(s): I50.33 - Acute on chronic diastolic (congestive) heart failure (4) CKD (chronic kidney disease) Current Visit: Yes Status: Chronic Assessment and plan: renal function is stable Qualifiers: Chronic kidney disease stage: stage 3 (moderate) Qualified Code(s): N18.3 - Chronic kidney disease, stage 3 (moderate) (5) COPD (chronic obstructive pulmonary disease) Current Visit: Yes Status: Chronic Assessment and plan: Not in acute exacerbation. continue bronchodilators. O2 supplementation Qualifiers: Qualified Code(s): J44.9 - Chronic obstructive pulmonary disease, unspecified (6) Diabetes Current Visit: Yes Status: Chronic Assessment and plan: Fairly controlled. 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 No longer having chest pain at this time. No further work up planned at this time. follow-up outpatient with cardiology (8) Hyperlipidemia Current Visit: No Status: Chronic Qualifiers: Hyperlipidemia type: unspecified Qualified Code(s): E78.5 - Hyperlipidemia , unspecified (9) Hypertension Current Visit: Yes Status: Chronic Qualifiers: Hypertension type: essential hypertension Qualified Code(s): I10 - Essential (primary) hypertension (10) DVT prophylaxis Current Visit: No Status: Acute Assessment and plan: with sq heparin - Subjective Interval history: Patient is awake and alert. Complains of back pain but is otherwise doing well. Denies any chest pain at this time. No shortness of breath. Having good urine output. No fever or chills reported overnight. Remains on nitro drip. Weaning down. - Constitutional Vitals: Temp Pulse Resp BP Pulse Ox 98.2 F 78 16 159/79 93 02/06/17 11:00 02/06/17 11:00 02/06/17 11:00 02/06/17 11:00 02/06/17 11:00 General appearance: Present: cooperative, A&O X 3, morbidly obese, pleasant, no acute distress, answers questions appropriately - Respiratory Respiratory exam: Present: decreased breath sounds (at both bases). Absent: accessory muscle use, rales, rhonchi, wheezes - Cardiovascular Cardiovascular exam: Present: RRR, +S1, +S2. Absent: diastolic murmur, gallop, rubs, systolic murmur - GI/Abdominal GI/Abdominal exam: Present: normal bowel sounds, soft, no peritoneal signs. Absent: distended, tenderness - Extremities Exam Extremities exam: Present: pedal edema (with stasis dematitis), warm, radial pulses palpable and symmetrical. Absent: calf tenderness, cyanotic - Neurological Exam Neurological exam: Present: alert, CN II-XII intact, oriented X3, no focal deficits. Absent: facial droop, speech deficit - Skin Skin exam: Present: dry, intact Internal Medicine: Result - Labs CBC & Chem 7: 02/06/17 03:09 02/06/17 03:09 Labs: Short CBC 02/06/17 Range/Units 03:09 WBC 3.8 L (4.3-11.1) K/mcL Hgb 9.2 L (11.5-15.4) g/dL Hct 31.2 L (35.3-44.9) % Plt Count 221 (140-400) K/mcL Neutrophils # 2.3 (1.6-8.9) K/mcL BMP 02/06/17 03:09 Sodium 141 Potassium 4.2 Chloride 104 Carbon Dioxide 32 H BUN 26 H Creatinine 2.44 H Glucose 111 H Calcium 8.2 L Cardiac Enzymes 02/05/17 02/06/17 02/06/17 Range/Units 22:41 03:09 13:17 Troponin I 0.03 0.03 0.03 (< 0.04) ng/mL - ABG Interpretation ABG results: PT/INR, D-dimer PT 12.8 Seconds (9.4-12.1) H 02/06/17 03:09 Consult Discharge Plan - Plan Referrals: Mauro Dockery MD [Primary Care Provider] -
[2017-02-06] MEDS: *HR* Warfarin 3 MG TABLET PO SCH (17:55)
[2017-02-06] MEDS: Isosorbide MONOnitrate (24 HR) 60 MG TAB.ER.24H PO SCH (17:55)
[2017-02-06] MEDS ORDERED: Warfarin perPT PO PRN (18:00)
[2017-02-06] MEDS ORDERED: Metoprolol XL (24 HR) Succ 25 MG TAB.ER.24H PO ONE (18:41)
[2017-02-06] MEDS ORDERED: *HR* Metoprolol 5 MG/5 ML VIAL IVP PRN (18:41)
[2017-02-06] MEDS ORDERED: clonazePAM 1 MG TABLET PO SCH (21:00)
[2017-02-06] MEDS ORDERED: Insulin LISPRO 300 UNITS/3 ML VIAL SQ SCH (21:00)
[2017-02-07 05:05] LABS: INR 1.1; Prothrombin Time 11.8 Seconds (9.4-12.1)
[2017-02-07 06:53] VITALS: BP 145/83
--- NOTE | 2017-02-07 07:26 | Electrocardiograph Report ---
[place] [address] Test Date: 2017-02-05 Pat Name: Jenny Mars Department: 104 Room: [id number] Gender: F Helper Driver: : 1955 Requested By: Kay Garcia Order Number: [id number] Reading MD: Gian Benson MD Measurements Intervals Delta Rate: 80 P: 47 AR: 174 QRS: 41 QRSD: 98 T: 23 QT: 371 QTc: 407 Interpretive Statements SINUS RHYTHM LOW QRS VOLTAGE IN PRECORDIAL LEADS Electronically Signed On 02-07-2017 7:24:20 EST by Gian Benson MD
[2017-02-07] MEDS ORDERED: Metoprolol XL (24 HR) Succ 50 MG TAB.ER.24H PO SCH (09:00)
[2017-02-07] MEDS: Nystatin POWDER 30 GM BOTTLE TP SCH ×2 (09:39→14:15)
[2017-02-07] MEDS: amLODIPine 5 MG TABLET PO SCH (09:39)
[2017-02-07] MEDS: Furosemide 20 MG TABLET PO SCH ×2 (09:39→16:28)
[2017-02-07] MEDS: Gabapentin 100 MG CAPSULE PO SCH ×2 (09:39→14:12)
[2017-02-07] MEDS: Insulin LISPRO 300 UNITS/3 ML VIAL SQ SCH ×2 (09:40→14:13)
--- NOTE | 2017-02-07 13:44 | Discharge Summary ---
Date of Encounter: 02/07/17 Time of Encounter: 13:40 - Discharge Diagnosis (1) Hypertensive urgency Priority: Primary Status: Resolved (2) Low back pain Priority: Secondary Status: Acute Qualifiers: Chronicity: chronic Back pain laterality: midline Sciatica presence: without sciatica Qualified Code(s): M54.5 - Low back pain; G89.29 - Other chronic pain; G89.29 - Other chronic pain (3) CHF (congestive heart failure) Priority: Secondary Status: Chronic Qualifiers: Congestive heart failure type: diastolic Congestive heart failure chronicity: acute on chronic Qualified Code(s): I50.33 - Acute on chronic diastolic (congestive) heart failure (4) CKD (chronic kidney disease) Priority: Secondary Status: Chronic Qualifiers: Chronic kidney disease stage: stage 3 (moderate) Qualified Code(s): N18.3 - Chronic kidney disease, stage 3 (moderate) (5) COPD (chronic obstructive pulmonary disease) Priority: Secondary Status: Chronic Qualifiers: COPD type: chronic bronchitis Chronic bronchitis type: simple Qualified Code(s): J41.0 - Simple chronic bronchitis (6) Diabetes Priority: Secondary Status: Chronic Qualifiers: Diabetes mellitus type: type 2 Diabetes mellitus complication status: with circulatory complication Diabetes mellitus complication detail: with other circulatory complications Diabetes mellitus terminal operator insulin use: with terminal operator use Qualified Code(s): E11.59 - Type 2 diabetes mellitus with other circulatory complications; Z79.4 - exterminator (current) use of insulin; Z79.4 - [facility] (current) use of insulin; Z79.4 - exterminator (current) use of insulin; Z79.4 - exterminator (current) use of insulin (7) Elevated troponin Priority: Secondary Status: Resolved (8) Hyperlipidemia Priority: Secondary Status: Chronic Qualifiers: Hyperlipidemia type: unspecified Qualified Code(s): E78.5 - Hyperlipidemia , unspecified (9) Hypertension Priority: Secondary Status: Chronic Qualifiers: Hypertension type: essential hypertension Qualified Code(s): I10 - Essential (primary) hypertension (10) DVT prophylaxis Priority: Secondary Status: Acute (11) Urinary retention Priority: Secondary Status: Acute - Discharge Medications Prescriptions: Cyclobenzaprine [Flexeril] 10 mg PO TID PRN #10 tablet PRN Reason: Muscle Spasm Enoxaparin [Lovenox] 150 mg SQ DAILY #7 syr Metoprolol XL (24 HR) Succ [Toprol Xl] 50 mg PO DAILY #30 tab.er.24h Home Medications: Docusate [Colace] 100 mg PO TID 09/12/14 [History] Doxepin [Sinequan] 50 mg PO HS 09/12/14 [History] Meclizine [Antivert] 25 mg PO TID PRN 09/12/14 [History] Allopurinol [Zyloprim 100 MG] 100 mg PO DAILY 03/22/15 [History] DiphenhydraMINE [Benadryl] 25 mg PO TID PRN 03/22/15 [History] Exenatide Microspheres [Bydureon Pen] 2 mg SQ MO 03/22/15 [History] Lidocaine Patch [Lidoderm 5% patch] 1 - 3 patch TP DAILY 03/22/15 [History] Nitroglycerin [Nitrostat] 0.4 mg SL Q5M PRN 03/22/15 [History] Promethazine [Phenergan] 25 mg PO TID PRN 03/22/15 [History] clonazePAM [Klonopin] 1 mg PO HS PRN 03/22/15 [History] Albuterol Neb [AccuNeb] 1.25 mg IH QID PRN 05/06/16 [History] Levothyroxine [Synthroid] 250 mcg PO QAM 05/06/16 [History] Nystatin POWDER [Nystop] 1 appl TP QID 05/06/16 [History] Rosuvastatin [Crestor] 20 mg PO HS 05/06/16 [History] Acetaminophen [Tylenol] 650 mg PO Q4-6H 11/10/16 [History] Omeprazole [PriLOSEC] 40 mg PO DAILY 11/10/16 [History] Isosorbide MONOnitrate (24 HR) [Imdur] 60 mg PO QPM #30 tab.er.24h 11/11/16 [Rx] Potassium Chloride [Klor-Con 10] 10 meq PO BID 11/11/16 [History] Gabapentin [Neurontin] 100 mg PO TID #90 capsule 11/27/16 [Rx] Insulin DETEMIR [Levemir] 100 unit SQ BID #2 vial 11/27/16 [Rx] Warfarin [Coumadin] 3 mg PO 1800 #5 tablet 11/27/16 [Rx] amLODIPine [Norvasc] 5 mg PO DAILY 01/07/17 [History] Ferrous Sulfate 325 mg PO BIDWM #60 tablet 01/11/17 [Rx] Furosemide [Lasix] 60 mg PO BID #180 tablet 01/17/17 [Rx] Insulin LISPRO [HumaLOG] 32 units SQ TIDWM 02/05/17 [History] Cyclobenzaprine [Flexeril] 10 mg PO TID PRN #10 tablet 02/07/17 [Rx] Enoxaparin [Lovenox] 150 mg SQ DAILY #7 syr 02/07/17 [Rx] Metoprolol XL (24 HR) Succ [Toprol Xl] 50 mg PO DAILY #30 tab.er.24h 02/07/17 [ Rx] Allergies/Adverse Reactions: 3 Allergy/AdvReac Type Severity Reaction Status Date / Time aspirin Allergy Hives Verified 01/07/17 18:11 cephalexin [From Keflex] Allergy Difficulty Verified 01/07/17 18:11 Breathing codeine Allergy Hypertensio Verified 01/07/17 18:11 n Cortisone Allergy See Verified 01/07/17 18:11 Comments hydrocortisone Allergy Hypertensio Verified 01/07/17 18:11 n ibuprofen Allergy Hives Verified 01/07/17 18:11 Iodinated Contrast- Oral and Allergy See Verified 01/07/17 18:11 IV Dye Comments [Iodinated Contrast Media - IV Dye] lidocaine [From Xylocaine] Allergy See Verified 01/07/17 18:11 Comments loratadine [From Claritin] Allergy Hives Verified 01/07/17 18:11 methylprednisolone Allergy Hypertensio Verified 01/07/17 18:11 [From Solu-Medrol] n Penicillins Allergy See Verified 01/07/17 18:11 Comments prednisone Allergy Hypertensio Verified 01/07/17 18:11 n Procaine [From Novocain] Allergy See Verified 01/07/17 18:11 Comments propoxyphene [From Darvon] Allergy See Verified 01/07/17 18:11 Comments pseudoephedrine Allergy Hives Verified 01/07/17 18:11 [From Sudafed] ropinirole [From Requip] Allergy See Verified 01/07/17 18:11 Comments tramadol AdvReac See Verified 01/07/17 18:11 Comments Date of admission: 02/05/17 21:01 Primary care physician: Mauro Dockery MD Consults: 02/06/17 18:43 Consult to Physical Therapy [CONS] Routine Comment: Evaluate, develop and implement POC Reason for Consult: D/C NEEDS 02/06/17 18:44 Consult to Occupational Therapy [CONS] Routine Comment: Evaluate, develop and implement POC Reason for Consult: D/C PLANNING Discharging clinician: Shaggy Dominguez Anticipated date of discharge: 02/07/17 - Patient Status Disposition: Home Health Service Condition: Good Functional capacity at discharge: uses cane/walker Overall status at discharge: patient is progressing back to baseline - Discharge Instructions Instructions: Metoprolol (By mouth), Cyclobenzaprine (By mouth), Enoxaparin ( Injection), Diabetes Mellitus Type 2 in Adults (DC), Chronic Hypertension (DC) Follow Up With: Mauro Dockery MD [Primary Care Provider] - 02/14/17 1:15 pm Jimenez Griffin MD [Partnered Physician] - (in 1 week for urinary retention. Appt requested office will call you with appt date & time. This is to followup on urinary retention, went home with renae, and voiding trial once removed.) Additional Instructions: Renae care: Cleanse with soap and water daily. Cleanse bu washing away from your body as to not push bacteria towards you to cause infection. Home health nurses should change this once a month (if you still have it in at that time). Please empty bag every 8 hrs so urine does not reflux back into your kidneys. Prescriptions: We electronically sent your prescriptions to [facility] pharmacy, they should be finished by the time you get there. Lovenox: Please inject yourself with Lovenox subcutaneously just like you do insulin. Give yourself these injections per your prescription. You can stop doing this once your INR for your coumadin is therapeutic. Your Primary care physician will tell you when to stop. - Diet and Activity Activity: increase activity as tolerated, wear oxygen at all times Diet: advance to your usual diet, diabetic diet, low fat, low cholesterol, low salt diet Hospital course: Ms. Mars is a 62 year old female patient with history of chronic kidney disease stage III, crit congestive heart failure, COPD, diabetes, hypertension, hyperlipidemia presented to the ER mainly with complaints of chest pain and worsening low back pain. But she was found to have significantly elevated blood pressure and so was placed on nitroglycerin drip and was admitted here for hypertensive urgency. Patient does appear to have a history of noncompliance with her medications. She is on Coumadin but her INR was subtherapeutic. 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 She was placed back on her usual antihypertensive medications yesterday with improvement in her blood pressure. She remained hyper extensive and so her metoprolol dosage has been increased to 50 mg daily. She was evaluated by physical therapy and recommended home health and physical therapy which will be provided to the patient. Presently she is feeling much better and wishes to go home. As her blood pressure is now better controlled, she will be discharged home. She can follow up with her primary care provider for further management of her chronic medical conditions. As her INR is subtherapeutic, I do recommend that she take Lovenox along with Coumadin until her INR is therapeutic. She does follow up with her primary care provider who manages her Coumadin dosage. She understands the risks of recurrence of hypertensive urgency and other medical problems if she does not stay compliant with her medications. She also had mild elevation in troponin to peak of 0.04 that has since trended down. She is on 3 L home oxygen which she will continue to use. - Time Spent with Patient Total time spent providing and/or coordinating discharge services: Greater than 30 minutes (40 min) - Constitutional Vitals: Temp Pulse Resp BP Pulse Ox 98.4 F 84 18 145/83 95 02/07/17 06:51 02/07/17 06:51 02/07/17 06:51 02/07/17 06:51 02/07/17 06:51 General appearance: Present: cooperative, A&O X 3, morbidly obese, pleasant, no acute distress, answers questions appropriately - Respiratory Respiratory exam: Present: decreased breath sounds (bilaterally diminished breath sounds at the bases). Absent: accessory muscle use, rales, rhonchi, wheezes - Cardiovascular Cardiovascular exam: Present: RRR, +S1, +S2. Absent: diastolic murmur, gallop, rubs, systolic murmur - Extremities Exam Extremities exam: Present: warm, radial pulses palpable and symmetrical. Absent : calf tenderness, cyanotic, pedal edema - Neurological Exam Neurological exam: Present: CN II-XII intact, oriented X3, no focal deficits. Absent: facial droop, speech deficit - Skin Skin exam: Present: dry, intact
--- NOTE | 2017-02-07 13:48 | Physician Discharge Referral ---
Home Health/Hosp Referral Info Transfer to: Home Health Provider in Charge Post Discharge: PCP - Diagnosis (1) Hypertensive urgency Priority: Primary Status: Resolved (2) Low back pain Priority: Secondary Status: Acute (3) CHF (congestive heart failure) Priority: Secondary Status: Chronic (4) CKD (chronic kidney disease) Priority: Secondary Status: Chronic (5) COPD (chronic obstructive pulmonary disease) Priority: Secondary Status: Chronic (6) Diabetes Priority: Secondary Status: Chronic (7) Elevated troponin Priority: Secondary Status: Resolved (8) Hyperlipidemia Priority: Secondary Status: Chronic (9) Hypertension Priority: Secondary Status: Chronic (10) DVT prophylaxis Priority: Secondary Status: Acute - Respiratory Orders Oxygen / L per min (3) Smoking Cessation: Smoking cessation has been advised. For more information, call the [facility] Quit Line at [phone]. - Diet/Nutrition Diet/Nutrition Orders: Cardiac - Activity Activity Orders: Walker - Services Needed Following services are medically necessary services: Nursing, Home Health Aide, Physical Therapy, Occupational Therapy - Transfer Medications Prescriptions: Cyclobenzaprine [Flexeril] 10 mg PO TID PRN #10 tablet PRN Reason: Muscle Spasm Metoprolol XL (24 HR) Succ [Toprol Xl] 50 mg PO DAILY #30 tab.er.24h Home Medications: Docusate [Colace] 100 mg PO TID 09/12/14 [History] Doxepin [Sinequan] 50 mg PO HS 09/12/14 [History] Meclizine [Antivert] 25 mg PO TID PRN 09/12/14 [History] Allopurinol [Zyloprim 100 MG] 100 mg PO DAILY 03/22/15 [History] DiphenhydraMINE [Benadryl] 25 mg PO TID PRN 03/22/15 [History] Exenatide Microspheres [Bydureon Pen] 2 mg SQ MO 03/22/15 [History] Lidocaine Patch [Lidoderm 5% patch] 1 - 3 patch TP DAILY 03/22/15 [History] Nitroglycerin [Nitrostat] 0.4 mg SL Q5M PRN 03/22/15 [History] Promethazine [Phenergan] 25 mg PO TID PRN 03/22/15 [History] clonazePAM [Klonopin] 1 mg PO HS PRN 03/22/15 [History] Albuterol Neb [AccuNeb] 1.25 mg IH QID PRN 05/06/16 [History] Levothyroxine [Synthroid] 250 mcg PO QAM 05/06/16 [History] Nystatin POWDER [Nystop] 1 appl TP QID 05/06/16 [History] Rosuvastatin [Crestor] 20 mg PO HS 05/06/16 [History] Acetaminophen [Tylenol] 650 mg PO Q4-6H 11/10/16 [History] Omeprazole [PriLOSEC] 40 mg PO DAILY 11/10/16 [History] Isosorbide MONOnitrate (24 HR) [Imdur] 60 mg PO QPM #30 tab.er.24h 11/11/16 [Rx] Potassium Chloride [Klor-Con 10] 10 meq PO BID 11/11/16 [History] Gabapentin [Neurontin] 100 mg PO TID #90 capsule 11/27/16 [Rx] Insulin DETEMIR [Levemir] 100 unit SQ BID #2 vial 11/27/16 [Rx] Warfarin [Coumadin] 3 mg PO 1800 #5 tablet 11/27/16 [Rx] amLODIPine [Norvasc] 5 mg PO DAILY 01/07/17 [History] Ferrous Sulfate 325 mg PO BIDWM #60 tablet 01/11/17 [Rx] Furosemide [Lasix] 60 mg PO BID #180 tablet 01/17/17 [Rx] Insulin LISPRO [HumaLOG] 32 units SQ TIDWM 02/05/17 [History] Cyclobenzaprine [Flexeril] 10 mg PO TID PRN #10 tablet 02/07/17 [Rx] Metoprolol XL (24 HR) Succ [Toprol Xl] 50 mg PO DAILY #30 tab.er.24h 02/07/17 [ Rx] Allergies/Adverse Reactions: 3 Allergy/AdvReac Type Severity Reaction Status Date / Time aspirin Allergy Hives Verified 01/07/17 18:11 cephalexin [From Keflex] Allergy Difficulty Verified 01/07/17 18:11 Breathing codeine Allergy Hypertensio Verified 01/07/17 18:11 n Cortisone Allergy See Verified 01/07/17 18:11 Comments hydrocortisone Allergy Hypertensio Verified 01/07/17 18:11 n ibuprofen Allergy Hives Verified 01/07/17 18:11 Iodinated Contrast- Oral and Allergy See Verified 01/07/17 18:11 IV Dye Comments [Iodinated Contrast Media - IV Dye] lidocaine [From Xylocaine] Allergy See Verified 01/07/17 18:11 Comments loratadine [From Claritin] Allergy Hives Verified 01/07/17 18:11 methylprednisolone Allergy Hypertensio Verified 01/07/17 18:11 [From Solu-Medrol] n Penicillins Allergy See Verified 01/07/17 18:11 Comments prednisone Allergy Hypertensio Verified 01/07/17 18:11 n Procaine [From Novocain] Allergy See Verified 01/07/17 18:11 Comments propoxyphene [From Darvon] Allergy See Verified 01/07/17 18:11 Comments pseudoephedrine Allergy Hives Verified 01/07/17 18:11 [From Sudafed] ropinirole [From Requip] Allergy See Verified 01/07/17 18:11 Comments tramadol AdvReac See Verified 01/07/17 18:11 Comments Certification: Further, I certify that my clinical findings support that this patient is homebound (i.e. absences from home require considerable and taxing effort and are for medical reasons or anglican services or infrequently or short duration when for other reasons) because: Homebound Reason: Patient requires assistance of a person or device to safely leave home, Severity of cardiac or pulmonary status limits activity tolerance Attestation: My signature below is to certify that this patient is under my care and that I, or nurse practitioner, or a physician's general office assistant working with me, has a face-to -face encounter with this patient.
[2017-02-07] MEDS: Isosorbide MONOnitrate (24 HR) 60 MG TAB.ER.24H PO SCH (16:28)
[2017-02-07] MEDS: *HR* Warfarin 3 MG TABLET PO SCH (16:29)
[2017-02-07] MEDS ORDERED: *HR* Enoxaparin 100 MG/ML SYRINGE SQ SCH (18:00)
[2017-02-07] MEDS ORDERED: *HR* Enoxaparin 80 MG/0.8 ML SYRINGE SQ SCH (18:00)
== END 2017-02-07 17:30 | disposition home health service (06) | DRG 199 ==
LOC: EMEROO 15:03 → 2NENU 15:03 → SUATTDRO 21:01 → 2NENU 21:23
PROVIDERS: ADMIT Nurse Practitioner; ATTEND Internal Medicine

== ENCOUNTER 2017-08-11 19:43 | Observation (INO) ==
[2017-08-11] MEDS ORDERED: *HR* FentaNYL (PF) 100 MCG/2 ML VIAL IVP ONE (19:48)
--- NOTE | 2017-08-11 19:50 | Emergency Department Note ---
Disposition Clinical Impression: Unstable angina, Acute worsening of stage 3 chronic kidney disease Obesity Qualifiers: Obesity type: unspecified obesity type Obesity classification: unspecified obesity classification Serious obesity comorbidity presence: with serious comorbidity Qualified Code(s): E66.9 - Obesity, unspecified Disposition: Still a Patient Condition: Undetermined Referrals: Mauro Dockery MD [Primary Care Provider] - Forms: ED Satisfaction Letter Time of Disposition: 21:03 Chest Pain HPI - General Chief Complaint: ED Chest Pain Stated Complaint: Chest Pain Time Seen by Provider: 08/11/17 19:46 Source: patient, EMS Mode of arrival: EMS Limitations: no limitations Vital Signs Reviewed: Yes Nursing Notes Reviewed: Yes - History of Present Illness HPI Narrative: 62-year-old female with history of end-stage renal disease on dialysis, CHF, arrives to the emergency department complaining of right sided radiating to the left side chest pain that occurred just prior to arrival. The patient was receiving dialysis and roughly in 54 minutes into it she started complaining of left-sided chest pain. The patient's states she had associated dyspnea. No previous history of [place] according to the patient. The patient received nitroglycerin at dialysis center which did not relieve the pain. The patient's is adamant that she cannot take aspirin. She denies any other complaints at this time. She is resting comfortably in the room in no acute distress. She is having no difficulty in breathing noted. The patient does admit to bilateral lower surety swelling which she says it is not uncommon for her prior to the dialysis. No previous cardiac stenting placed. - Related Data Home Medications Medication Instructions Recorded Confirmed Docusate [Colace] 100 mg PO TID 09/12/14 02/05/17 Doxepin [Sinequan] 50 mg PO HS 09/12/14 02/05/17 Meclizine [Antivert] 25 mg PO TID PRN 09/12/14 02/05/17 Allopurinol [Zyloprim 100 MG] 100 mg PO DAILY 03/22/15 02/05/17 DiphenhydraMINE [Benadryl] 25 mg PO TID PRN 03/22/15 02/05/17 Exenatide Microspheres [Bydureon 2 mg SQ MO 03/22/15 01/07/17 Pen] Lidocaine Patch [Lidoderm 5% patch] 1 - 3 patch TP DAILY 03/22/15 02/05/17 Nitroglycerin [Nitrostat] 0.4 mg SL Q5M PRN 03/22/15 02/05/17 Promethazine [Phenergan] 25 mg PO TID PRN 03/22/15 02/05/17 clonazePAM [Klonopin] 1 mg PO HS PRN 03/22/15 02/05/17 Albuterol Neb [AccuNeb] 1.25 mg IH QID PRN 05/06/16 02/05/17 Levothyroxine [Synthroid] 250 mcg PO QAM 05/06/16 02/05/17 Nystatin POWDER [Nystop] 1 appl TP QID 05/06/16 02/05/17 Rosuvastatin [Crestor] 20 mg PO HS 05/06/16 02/05/17 Acetaminophen [Tylenol] 650 mg PO Q4-6H 11/10/16 02/05/17 Omeprazole [PriLOSEC] 40 mg PO DAILY 11/10/16 02/05/17 Potassium Chloride [Klor-Con 10] 10 meq PO BID 11/11/16 02/05/17 amLODIPine [Norvasc] 5 mg PO DAILY 01/07/17 02/05/17 Insulin LISPRO [HumaLOG] 32 units SQ TIDWM 02/05/17 02/05/17 Previous Rx's Medication Instructions Recorded Isosorbide MONOnitrate (24 HR) 60 mg PO QPM #30 tab.er.24h 11/11/16 [Imdur] Gabapentin [Neurontin] 100 mg PO TID #90 capsule 11/27/16 Insulin DETEMIR [Levemir] 100 unit SQ BID #2 vial 11/27/16 Warfarin [Coumadin] 3 mg PO 1800 #5 tablet 11/27/16 Ferrous Sulfate 325 mg PO BIDWM #60 tablet 01/11/17 Furosemide [Lasix] 60 mg PO BID #180 tablet 01/17/17 Cyclobenzaprine [Flexeril] 10 mg PO TID PRN #10 tablet 02/07/17 Enoxaparin [Lovenox] 150 mg SQ DAILY #7 syr 02/07/17 Metoprolol XL (24 HR) Succ [Toprol 50 mg PO DAILY #30 tab.er.24h 02/07/17 Xl] Allergies Allergy/AdvReac Type Severity Reaction Status Date / Time aspirin Allergy Hives Verified 01/07/17 18:11 cephalexin [From Keflex] Allergy Difficulty Verified 01/07/17 18:11 Breathing codeine Allergy Hypertensio Verified 01/07/17 18:11 n Cortisone Allergy See Verified 01/07/17 18:11 Comments hydrocortisone Allergy Hypertensio Verified 01/07/17 18:11 n ibuprofen Allergy Hives Verified 01/07/17 18:11 Iodinated Contrast- Oral and Allergy See Verified 01/07/17 18:11 IV Dye Comments [Iodinated Contrast Media - IV Dye] lidocaine [From Xylocaine] Allergy See Verified 01/07/17 18:11 Comments loratadine [From Claritin] Allergy Hives Verified 01/07/17 18:11 methylprednisolone Allergy Hypertensio Verified 01/07/17 18:11 [From Solu-Medrol] n Penicillins Allergy See Verified 01/07/17 18:11 Comments prednisone Allergy Hypertensio Verified 01/07/17 18:11 n Procaine [From Novocain] Allergy See Verified 01/07/17 18:11 Comments propoxyphene [From Darvon] Allergy See Verified 01/07/17 18:11 Comments pseudoephedrine Allergy Hives Verified 01/07/17 18:11 [From Sudafed] ropinirole [From Requip] Allergy See Verified 01/07/17 18:11 Comments tramadol AdvReac See Verified 01/07/17 18:11 Comments All systems ED: reviewed and negative except as stated. Constitutional: Reports: weakness. Denies: fever, chills ENT ED: Denies: congestion Cardiovascular: Reports: chest pain, edema. Denies: palpitations, dyspnea on exertion, orthopnea, syncope Respiratory: Denies: cough, dyspnea, wheezes Gastrointestinal: Denies: abdominal pain, nausea, vomiting Genitourinary: Denies: urgency, dysuria Musculoskeletal: Denies: back pain, neck pain Integumentary: Denies: rash Neurological: Denies: headache Chest Pain PMH - Past Medical History Medical history: Reports: arthritis, CHF, COPD, DVT, diabetes, GERD, hyperlipidemia, hypertension, migraine, osteoporosis, renal disease, thyroid disease, other Surgical history: Reports: appendectomy, hysterectomy, orthopedic, other, other , IVC filter Psychiatric history: Reports: anxiety, depression 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 TECHNICIAN history: 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: bilateral 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 - Social History Smoking Status: Former smoker Alcohol use: Reports: none Drug use: Reports: none Physical Exam - General Limitations: no limitations General appearance: alert, in no apparent distress - Head Head exam: atraumatic, normocephalic, normal inspection - Eye Eye exam: Present: normal appearance, PERRL, EOMI - ENT ENT exam: normal exam - Neck Neck exam: Present: normal inspection, full ROM, trachea midline - Chest Chest inspection: Present: normal inspection, symmetric chest wall rise, other ( Dialysis catheter in place and right chest wall.) - Respiratory Respiratory exam: Present: other (Coarse breath sounds) - Cardiovascular Cardiovascular exam: Present: regular rate, normal rhythm, normal heart sounds - Abdominal Exam Abdominal exam: Present: soft, Non-Tender. Absent: tenderness, distention, guarding, rebound, rigidity - Extremities Exam Extremities exam: Present: full ROM, pedal edema (2+ nonpitting. Chronic venous stasis noted.). Absent: tenderness - Neurological Exam Neurological exam: Present: alert, oriented X3 - Skin Skin exam: Present: warm, dry, intact, normal color Course Vital Signs Temperature 98.2 F 08/11/17 20:01 Pulse Rate 90 08/11/17 20:01 Respiratory Rate 18 08/11/17 20:01 Blood Pressure 128/92 08/11/17 20:01 O2 Sat by Pulse Oximetry 97 08/11/17 20:01 Temperature 98.2 F 08/11/17 20:01 Pulse Rate 90 08/11/17 20:01 Respiratory Rate 18 08/11/17 20:01 Blood Pressure 128/92 08/11/17 20:01 O2 Sat by Pulse Oximetry 97 08/11/17 20:01 Oxygen Delivery Oxygen Delivery Room Air Chest Pain - MDM Narrative Medical decision making narrative: Patient care to be continued by Dr. Munguia. The patient was accepted already by Dr. Dominguez in the hospitalist group. Requested cardiology consult. We will admit the patient at this time. Hospitalist requested CTA of the chest. The patient has an allergy to IVP dye. VQ scan was ordered and Lovenox injection administered until patient to receive VQ scan. The patient will need to receive dialysis after the Lovenox injection. Patient made aware and agrees to plan. - EKG Data EKG attestation: Yes I reviewed and interpreted this EKG. EKG results narrative: Heart rate is 87 beats for minute. Normal sinus rhythm. No ST elevation but there is mild ST depression noted in lead 2, aVF when compared to previous EKG this is new. No other acute changes noted. No ST elevation noted.
--- NOTE | 2017-08-11 20:54 | Emergency Department Note ---
Disposition Clinical Impression: Unstable angina, Acute worsening of stage 3 chronic kidney disease Obesity Qualifiers: Obesity type: unspecified obesity type Obesity classification: unspecified obesity classification Serious obesity comorbidity presence: with serious comorbidity Qualified Code(s): E66.9 - Obesity, unspecified Disposition: Admitted As Inpatient Condition: Undetermined Referrals: Mauro Dockery MD [Primary Care Provider] - Forms: ED Satisfaction Letter General Adult HPI - General Chief complaint: ED Chest Pain Stated complaint: Chest Pain Time Seen by Provider: 08/11/17 19:46 Source: patient, EMS Mode of arrival: EMS Limitations: no limitations - History of Present Illness Pain Scale: 9 - Related Data Home Medications Medication Instructions Recorded Confirmed Docusate [Colace] 100 mg PO TID 09/12/14 02/05/17 Doxepin [Sinequan] 50 mg PO HS 09/12/14 02/05/17 Meclizine [Antivert] 25 mg PO TID PRN 09/12/14 02/05/17 Allopurinol [Zyloprim 100 MG] 100 mg PO DAILY 03/22/15 02/05/17 DiphenhydraMINE [Benadryl] 25 mg PO TID PRN 03/22/15 02/05/17 Exenatide Microspheres [Bydureon 2 mg SQ MO 03/22/15 01/07/17 Pen] Lidocaine Patch [Lidoderm 5% patch] 1 - 3 patch TP DAILY 03/22/15 02/05/17 Nitroglycerin [Nitrostat] 0.4 mg SL Q5M PRN 03/22/15 02/05/17 Promethazine [Phenergan] 25 mg PO TID PRN 03/22/15 02/05/17 clonazePAM [Klonopin] 1 mg PO HS PRN 03/22/15 02/05/17 Albuterol Neb [AccuNeb] 1.25 mg IH QID PRN 05/06/16 02/05/17 Levothyroxine [Synthroid] 250 mcg PO QAM 05/06/16 02/05/17 Nystatin POWDER [Nystop] 1 appl TP QID 05/06/16 02/05/17 Rosuvastatin [Crestor] 20 mg PO HS 05/06/16 02/05/17 Acetaminophen [Tylenol] 650 mg PO Q4-6H 11/10/16 02/05/17 Omeprazole [PriLOSEC] 40 mg PO DAILY 11/10/16 02/05/17 Potassium Chloride [Klor-Con 10] 10 meq PO BID 11/11/16 02/05/17 amLODIPine [Norvasc] 5 mg PO DAILY 01/07/17 02/05/17 Insulin LISPRO [HumaLOG] 32 units SQ TIDWM 02/05/17 02/05/17 Previous Rx's Medication Instructions Recorded Isosorbide MONOnitrate (24 HR) 60 mg PO QPM #30 tab.er.24h 11/11/16 [Imdur] Gabapentin [Neurontin] 100 mg PO TID #90 capsule 11/27/16 Insulin DETEMIR [Levemir] 100 unit SQ BID #2 vial 11/27/16 Warfarin [Coumadin] 3 mg PO 1800 #5 tablet 11/27/16 Ferrous Sulfate 325 mg PO BIDWM #60 tablet 01/11/17 Furosemide [Lasix] 60 mg PO BID #180 tablet 01/17/17 Cyclobenzaprine [Flexeril] 10 mg PO TID PRN #10 tablet 02/07/17 Enoxaparin [Lovenox] 150 mg SQ DAILY #7 syr 02/07/17 Metoprolol XL (24 HR) Succ [Toprol 50 mg PO DAILY #30 tab.er.24h 02/07/17 Xl] Allergies Allergy/AdvReac Type Severity Reaction Status Date / Time aspirin Allergy Hives Verified 01/07/17 18:11 cephalexin [From Keflex] Allergy Difficulty Verified 01/07/17 18:11 Breathing codeine Allergy Hypertensio Verified 01/07/17 18:11 n Cortisone Allergy See Verified 01/07/17 18:11 Comments hydrocortisone Allergy Hypertensio Verified 01/07/17 18:11 n ibuprofen Allergy Hives Verified 01/07/17 18:11 Iodinated Contrast- Oral and Allergy See Verified 01/07/17 18:11 IV Dye Comments [Iodinated Contrast Media - IV Dye] lidocaine [From Xylocaine] Allergy See Verified 01/07/17 18:11 Comments loratadine [From Claritin] Allergy Hives Verified 01/07/17 18:11 methylprednisolone Allergy Hypertensio Verified 01/07/17 18:11 [From Solu-Medrol] n Penicillins Allergy See Verified 01/07/17 18:11 Comments prednisone Allergy Hypertensio Verified 01/07/17 18:11 n Procaine [From Novocain] Allergy See Verified 01/07/17 18:11 Comments propoxyphene [From Darvon] Allergy See Verified 01/07/17 18:11 Comments pseudoephedrine Allergy Hives Verified 01/07/17 18:11 [From Sudafed] ropinirole [From Requip] Allergy See Verified 01/07/17 18:11 Comments tramadol AdvReac See Verified 01/07/17 18:11 Comments Constitutional: Reports: weakness. Denies: fever, chills ENT ED: Denies: congestion Cardiovascular: Reports: chest pain, edema. Denies: palpitations, dyspnea on exertion, orthopnea, syncope Respiratory: Denies: cough, dyspnea, wheezes Gastrointestinal: Denies: abdominal pain, nausea, vomiting Genitourinary: Denies: urgency, dysuria Musculoskeletal: Denies: back pain, neck pain Integumentary: Denies: rash Neurological: Denies: headache Past Medical History - Past Medical History Medical history: Reports: arthritis, CHF, COPD, DVT, diabetes, GERD, hyperlipidemia, hypertension, migraine, osteoporosis, renal disease, thyroid disease, other Surgical history: Reports: appendectomy, hysterectomy, orthopedic, other, other , IVC filter Psychiatric history: Reports: anxiety, depression 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: bilateral 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 - Social History Smoking Status: Former smoker Smokeless Tobacco Status: No Alcohol use: Reports: none Drug use: Reports: none Physical Exam - General Limitations: no limitations General appearance: alert, in no apparent distress Course Vital Signs Temperature 98.2 F 08/11/17 20:01 Pulse Rate 90 08/11/17 20:01 Respiratory Rate 18 08/11/17 20:01 Blood Pressure 128/92 08/11/17 20:01 O2 Sat by Pulse Oximetry 97 08/11/17 20:01 Temperature 98.2 F 08/11/17 20:01 Pulse Rate 90 08/11/17 20:01 Respiratory Rate 18 08/11/17 20:01 Blood Pressure 128/92 08/11/17 20:01 O2 Sat by Pulse Oximetry 97 08/11/17 20:01 Oxygen Delivery Oxygen Delivery Room Air Medical Decision Making - Lab Data Result diagrams: 08/11/17 20:56 Lab Results 08/11/17 08/11/17 Range/Units 20:56 20:56 WBC 5.2 (4.3-11.1) K/mcL RBC 3.21 L (3.82-4.97) M/mcL Hgb 9.4 L (11.5-15.4) g/dL Hct 31.9 L (35.3-44.9) % MCV 99.4 (83.0-100.0) fL MCH 29.3 (28.0-33.3) pg MCHC 29.5 L (31.6-35.5) g/dL RDW 17.9 H (11.5-14.5) % Plt Count 215 (140-400) K/mcL MPV 9.5 (9.4-12.4) fL Immature Gran % 0.6 (0-4) % Seg Neutrophils % 56.7 % Lymphocytes % 29.3 % Monocytes % 9.4 % Eosinophils % 3.6 % Basophils % 0.4 % Neutrophils # 3.0 (1.6-8.9) K/mcL Lymphocytes # 1.5 (0.6-4.6) K/mcL Monocytes # 0.5 (0.0-1.3) K/mcL Eosinophils # 0.2 (0.0-0.6) K/mcL Basophils # 0.0 (0.0-0.2) K/mcL PT 22.4 H (9.4-12.1) Seconds INR 2.0 APTT 35.7 (26.0-36.0) Seconds Attestation Statement - Attestation Attestation: I examined this patient and my medical decision-making was reviewed with the Resident Physician. I agree with the documented findings, disposition and treatment plan as described except to the extent set forth below. 62-year-old female presented to the ER for chest pain. Located on the left side. Patient was getting hemodialysis today when she started having this chest discomfort. She has no documented coronary disease. She was given nitroglycerin there without relief. She states she is unable to take aspirin due to allergies. Her EKG was nonspecific and was changed from previous. pt will be admitted based on risk factors.
[2017-08-11] MEDS ORDERED: *HR* Enoxaparin 80 MG/0.8 ML SYRINGE SQ STA (21:00)
[2017-08-11 21:08] LABS: Eosinophils % 3.6 %; Hematocrit 31.9 % (35.3-44.9); Hemoglobin 9.4 g/dL (11.5-15.4); Immature Granulocytes % 0.6 % (0-4); Lymphocytes % 29.3 %; Mean Corpuscular HGB Conc 29.5 g/dL (31.6-35.5); Mean Corpuscular Hemoglobin 29.3 pg (28.0-33.3); Mean Corpuscular Volume 99.4 fL (83.0-100.0); Mean Platelet Volume 9.5 fL (9.4-12.4); Monocytes % 9.4 %; Platelet Count 215 K/mcL (140-400); Red Blood Count 3.21 M/mcL (3.82-4.97); Red Cell Distribution Width 17.9 % (11.5-14.5); Segmented Neutrophils % 56.7 %
[2017-08-11 21:09] LABS: Basophils % 0.4 %; Eosinophils # 0.2 K/mcL (0.0-0.6); Lymphocytes # 1.5 K/mcL (0.6-4.6); Monocytes # 0.5 K/mcL (0.0-1.3)
[2017-08-11 21:23] LABS: Prothrombin Time 22.4 Seconds (9.4-12.1)
[2017-08-11 21:26] LABS: Activated Partial Thrombo Time 35.7 Seconds (26.0-36.0)
[2017-08-11 22:02] LABS: Potassium 3.3 mEq/L (3.5-5.1)
[2017-08-11 22:09] LABS: Troponin I 0.03 ng/mL (< 0.04)
--- NOTE | 2017-08-11 23:18 | Internal Med History&Physical ---
Date of Encounter: 08/11/17 Time of Encounter: 09:20 Internal Medicine - H&P: HPI Chief complaint: cp History of present illness: Ms. Mars is a 62 year old female with history of end-stage renal disease on dialysis, CHF, arrives to the emergency department complaining of right sided radiating to the left side chest pain associated dyspnea that occurred while on HD. No previous history of [place] according to the patient. The patient refused to take aspirin in the ER and she reported that they gave her nitroglycerin at the hemodialysis unit however it did not relieve her chest pain, she was very short of breath on assessment and ER staff were concerned about PE, however she has contrast allergy and the VQ scan team decline to come since the order was placed after midnight, she was treated empirically with therapeutic dose of Lovenox and was admitted for further evaluation and management. Past Med Surg Social Fam HX - Past Medical History Medical history: arthritis, CHF, COPD, DVT, diabetes, GERD, hyperlipidemia, hypertension, migraine, osteoporosis, renal disease, thyroid disease, other Additional medical history: dialysis 3 days a week Psychiatric history: anxiety, depression - Past Surgical History Surgical History: appendectomy, hysterectomy, orthopedic, other, other, IVC filter Additional surgical history: carpal tunnel surgery left hand - Social History Smoking Status: Former smoker Smokeless Tobacco Status: No Alcohol use: none Drug use: none - Family History Father Living Status: Hx Family Cardiac Disorders: Yes Hx Family GI Disorders: No Hx Family Neurologic Disorders: Yes Mother Living Status: Hx Family Cardiac Disorders: Yes Hx Family Cancer: Yes Hx Family GI Disorders: No Hx Family Endocrine Disorder: Yes (DIABETES MELLITUS.) Internal Medicine - H&P: Meds Docusate [Colace] 100 mg PO TID 09/12/14 [History] Doxepin [Sinequan] 50 mg PO HS 09/12/14 [History] Meclizine [Antivert] 25 mg PO TID 09/12/14 [History] Allopurinol [Zyloprim 100 MG] 100 mg PO DAILY 03/22/15 [History] DiphenhydraMINE [Benadryl] 25 mg PO TID 03/22/15 [History] Exenatide Microspheres [Bydureon Pen] 2 mg SQ QWEEK 03/22/15 [History] Lidocaine Patch [Lidoderm 5% patch] 1 - 3 patch TP DAILY 03/22/15 [History] Nitroglycerin [Nitrostat] 0.4 mg SL Q5M PRN 03/22/15 [History] Promethazine [Phenergan] 25 mg PO TID 03/22/15 [History] clonazePAM [Klonopin] 1 mg PO HS 03/22/15 [History] Albuterol Neb [AccuNeb] 1.25 mg IH QID PRN 05/06/16 [History] Levothyroxine [Synthroid] 100 mcg PO QAM 05/06/16 [History] Nystatin POWDER [Nystop] 1 appl TP QID 05/06/16 [History] Rosuvastatin [Crestor] 20 mg PO HS 05/06/16 [History] Acetaminophen [Tylenol] 650 mg PO Q4-6H PRN 11/10/16 [History] Omeprazole [PriLOSEC] 40 mg PO DAILY 11/10/16 [History] Isosorbide MONOnitrate (24 HR) [Imdur] 60 mg PO QPM #30 tab.er.24h 11/11/16 [Rx] Potassium Chloride [Klor-Con 10] 10 meq PO BID 11/11/16 [History] Gabapentin [Neurontin] 100 mg PO TID #90 capsule 11/27/16 [Rx] Insulin DETEMIR [Levemir] 100 unit SQ BID #2 vial 11/27/16 [Rx] Ferrous Sulfate 325 mg PO BIDWM #60 tablet 01/11/17 [Rx] Insulin LISPRO [HumaLOG] 32 units SQ TIDWM 02/05/17 [History] Cyclobenzaprine [Flexeril] 10 mg PO TID 08/12/17 [History] Furosemide [Lasix] 20 mg PO BID 08/12/17 [History] Furosemide [Lasix] 40 mg PO QAM 08/12/17 [History] Metoprolol XL (24 HR) Succ [Toprol Xl] 25 mg PO DAILY 08/12/17 [History] Warfarin [Coumadin] 5 mg PO 1800 08/12/17 [History] 3 Allergy/AdvReac Type Severity Reaction Status Date / Time aspirin Allergy Hives Verified 01/07/17 18:11 cephalexin [From Keflex] Allergy Difficulty Verified 01/07/17 18:11 Breathing codeine Allergy Hypertensio Verified 01/07/17 18:11 n Cortisone Allergy See Verified 01/07/17 18:11 Comments hydrocortisone Allergy Hypertensio Verified 01/07/17 18:11 n ibuprofen Allergy Hives Verified 01/07/17 18:11 Iodinated Contrast- Oral and Allergy See Verified 01/07/17 18:11 IV Dye Comments [Iodinated Contrast Media - IV Dye] lidocaine [From Xylocaine] Allergy See Verified 01/07/17 18:11 Comments loratadine [From Claritin] Allergy Hives Verified 01/07/17 18:11 methylprednisolone Allergy Hypertensio Verified 01/07/17 18:11 [From Solu-Medrol] n Penicillins Allergy See Verified 01/07/17 18:11 Comments prednisone Allergy Hypertensio Verified 01/07/17 18:11 n Procaine [From Novocain] Allergy See Verified 01/07/17 18:11 Comments propoxyphene [From Darvon] Allergy See Verified 01/07/17 18:11 Comments pseudoephedrine Allergy Hives Verified 01/07/17 18:11 [From Sudafed] ropinirole [From Requip] Allergy See Verified 01/07/17 18:11 Comments tramadol AdvReac See Verified 01/07/17 18:11 Comments All Systems PM: A 10-system review of systems was performed and is negative for pertinent findings except as documented above in the HPI. - Constitutional Vitals: Temp Pulse Resp BP Pulse Ox 98.2 F 80 18 130/96 97 08/11/17 20:01 08/11/17 22:31 08/11/17 20:01 08/11/17 22:31 08/11/17 20:01 Internal Med - H&P Results - Labs CBC & Chem 7: 08/12/17 04:20 08/11/17 20:56 Labs: Short CBC 08/11/17 Range/Units 20:56 WBC 5.2 (4.3-11.1) K/mcL Hgb 9.4 L (11.5-15.4) g/dL Hct 31.9 L (35.3-44.9) % Plt Count 215 (140-400) K/mcL Neutrophils # 3.0 (1.6-8.9) K/mcL BMP 08/11/17 20:56 Sodium 139 Potassium 3.3 L Chloride 100 Carbon Dioxide 25 BUN 10 Creatinine 1.75 H Glucose 180 H Calcium 8.0 L Cardiac Enzymes 08/11/17 Range/Units 20:56 Troponin I 0.03 (< 0.04) ng/mL - Impressions ITS Impressions Chest X-Ray 08/11/17 19:47 IMPRESSION: No acute process. Mild cardiomegaly D/ / Chano Cohen MD / Chano Cohen MD Interpreting Provider: Chano Cohen MD - Assessment and plan (1) Chest pain Current Visit: No Status: Acute Assessment and plan: ASSESSMENT: - Chest pain associated with SOB R/o CAD - Concern for a possible PE was raised by the ER and patient was treated empirically with therapeutic dose of Lovenox PLAN: - cardiac enzymes x 2 q 8 hr - EKG now and in AM - ASA - O2 by NC to keep SpO2 greater than 92% - CBCD, BMP in AM - Fasting lipids - Tylenol 650 mg PO q 4-6 hr PRN headache - Home meds (check list) - Heparin 5000 U SQ BID - 2D Echo - Cardiology consult Qualifiers: Chest pain type: other chest pain Qualified Code(s): R07.89 - Other chest pain; R07.8 - Other chest pain (2) Diabetes Current Visit: No Status: Chronic Assessment and plan: We will continue home regimen and start the patient in insulin sliding scale with moderate coverage Qualifiers: Diabetes mellitus type: type 2 Diabetes mellitus croze cutter insulin use: with croze cutter use Diabetes mellitus complication status: with circulatory complication Diabetes mellitus complication detail: with other circulatory complications Qualified Code(s): E11.59 - Type 2 diabetes mellitus with other circulatory complications; 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; 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; 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; Z79.4 - prison (current) use of insulin (3) Hypothyroidism Current Visit: No Status: Chronic Assessment and plan: We will continue home meds Qualifiers: Hypothyroidism type: acquired Qualified Code(s): E03.9 - Hypothyroidism, unspecified (4) Morbid obesity Current Visit: No Status: Chronic Assessment and plan: Obesity hypoventilation syndrome cannot be excluded as a possible cause of her difficulty breathing (5) Anemia in chronic kidney disease, on chronic dialysis Current Visit: Yes Status: Acute (6) Dependence on intermittent renal dialysis Current Visit: Yes Status: Acute Assessment and plan: The patient currently is dialysis dependent on hemodialysis Friday via right tunneled hemodialysis catheter, we will consult nephrology (7) Dependence on renal dialysis Current Visit: Yes Status: Acute (8) DVT (deep venous thrombosis) Current Visit: No Status: Chronic Assessment and plan: The patient have history of DVT, a concern for possible PE was raised by the ER staff the patient is status post therapeutic dose of Lovenox, VQ scan is pending Qualifiers: DVT location: lower extremity Affected thrombotic vein of extremity: unspecified vein of extremity Chronicity: unspecified Laterality: unspecified laterality Qualified Code(s): I82.409 - Acute embolism and thrombosis of unspecified deep veins of unspecified lower extremity (9) Anemia in chronic kidney disease Current Visit: Yes Status: Acute Assessment and plan: Hemoglobin target is 10-11 nephrology will be consulted for further evaluation of anemia of chronic kidney disease Qualifiers: Qualified Code(s): N18.9 - Chronic kidney disease, unspecified; D63.1 - Anemia in chronic kidney disease - Time Spent With Patient Total time spent is greater than 50% in coordination of care (as documented) at patient's floor/unit and/or counseling patient:
[2017-08-12] MEDS ORDERED: Naloxone 0.4 MG/ML INJ IVP PRN (03:41)
[2017-08-12] MEDS ORDERED: Acetaminophen 325 MG TABLET PO PRN (03:41)
[2017-08-12] MEDS: *HR* HYDROcodone/Acet 5/325 mg TABLET PO PRN ×2 (04:01→23:57)
[2017-08-12 04:38] LABS: Basophils % 0.4 %; Eosinophils # 0.1 K/mcL (0.0-0.6); Eosinophils % 2.3 %; Hematocrit 32.1 % (35.3-44.9); Hemoglobin 9.6 g/dL (11.5-15.4); Immature Granulocytes % 0.4 % (0-4); Lymphocytes # 1.2 K/mcL (0.6-4.6); Lymphocytes % 24.4 %; Mean Corpuscular HGB Conc 29.9 g/dL (31.6-35.5); Mean Corpuscular Hemoglobin 30.1 pg (28.0-33.3); Mean Corpuscular Volume 100.6 fL (83.0-100.0); Mean Platelet Volume 9.7 fL (9.4-12.4); Monocytes # 0.4 K/mcL (0.0-1.3); Monocytes % 8.6 %; Platelet Count 196 K/mcL (140-400); Red Blood Count 3.19 M/mcL (3.82-4.97); Red Cell Distribution Width 17.5 % (11.5-14.5); Segmented Neutrophils % 63.9 %
[2017-08-12 04:45] LABS: INR 2.1; Prothrombin Time 23.2 Seconds (9.4-12.1)
[2017-08-12 04:54] LABS: Activated Partial Thrombo Time 44.4 Seconds (26.0-36.0)
[2017-08-12 05:00] LABS: Albumin 3.4 g/dL (3.5-5.7); Albumin/Globulin Ratio 0.9 (1.1-2.2); Bilirubin,Total 0.4 mg/dL (0.3-1.0); Calcium 8.2 mg/dL (8.6-10.3); Chol/HDL Ratio 4.2 (0-4.9); Globulin 3.6 g/dL (2.4-3.5); Magnesium 1.6 mg/dL (1.6-2.6); Potassium 3.1 mEq/L (3.5-5.1)
--- NOTE | 2017-08-12 06:40 | Electrocardiograph Report ---
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
[2017-08-12] MEDS: Nystatin POWDER 30 GM BOTTLE TP SCH ×3 (09:38→22:33)
[2017-08-12] MEDS ORDERED: Nitroglycerin 0.4 MG TAB.SUBL SL PRN (12:15)
[2017-08-12] MEDS ORDERED: *HR* Dextrose 50 % in Water (Syg) 50 ML SYRINGE IVP PRN (12:25)
[2017-08-12] MEDS ORDERED: D5% in Water 1,000 ML IVC PRN (12:25)
[2017-08-12] MEDS ORDERED: Dextrose Gel 15 GM/37.5 ML TUBE PO PRN ×2 (12:25)
--- NOTE | 2017-08-12 12:51 | Internal Med Progress Note ---
Date of Encounter: 08/12/17 Time of Encounter: 12:50 - Assessment and plan (1) Chest pain Current Visit: Yes Status: Acute Assessment and plan: Atypical chest pain worse on deep inspiration and palpation, not improve with nitro troponin negative x2 with 3rd troponin .04 likely due to demand ischemia in light of ESRD concerning given risk factors of morbid obesity, HTN, DM, and family history cardiology evaluated and discussed with patients regarding possible stress test and LHC, patient declines all interventions Will continue medical management at this time with ASA statin, BB, increase imdur to 120 mg from 60 mg daily per cardio rec TTE 11/2016 with preserved EF Low suspicion for PE, patient not SOB. saturating well on RA. 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 Qualifiers: Chest pain type: other chest pain Qualified Code(s): R07.89 - Other chest pain; R07.8 - Other chest pain (2) Acute worsening of stage 3 chronic kidney disease Current Visit: Yes Status: Acute Assessment and plan: On IVF, f/u AM BMP (3) Dependence on renal dialysis Current Visit: Yes Status: Acute Assessment and plan: Renal disease on HD MWF Last HD Friday. Will consult nephro for HD if not discharged tomorrow. (4) DM (diabetes mellitus), type 2, uncontrolled Current Visit: No Status: Chronic Assessment and plan: BS not controlled 180-190 on home levemir 100 BID Currently on ISS without Levemir. Will start 10 units BID levemir for now with sliding scale coverage. Titrate up as tolerated. Monitor BS. 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 will give and follow BP Uptitrate dose if persistently elevated in AM. Qualifiers: Hypertension type: essential hypertension Qualified Code(s): I10 - Essential (primary) hypertension (6) History of DVT (deep vein thrombosis) Current Visit: No Status: Chronic Assessment and plan: IVF filtered in place. on chronic coumadin Managed assist by pharmacy. (7) Hypothyroidism Current Visit: No Status: Chronic Assessment and plan: Continue home medications Qualifiers: Hypothyroidism type: acquired Qualified Code(s): E03.9 - Hypothyroidism, unspecified - Time Spent With Patient Total time spent is greater than 50% in coordination of care (as documented) at patient's floor/unit and/or counseling patient: - Subjective Interval history: Patient reports feeling better today with persistent chest pain from time to time. Otherwise no other complaints overnight - Constitutional Vitals: Temp Pulse Resp BP Pulse Ox 98.0 F 85 16 192/65 100 08/12/17 10:47 08/12/17 10:47 08/12/17 10:47 08/12/17 10:47 08/12/17 10:47 Exam: General: Alert and oriented. Morbidly obese. Skin: Diffuse bruising, worst over arms. HEENT: EOMI, pupils equal, round and reactive. Cardiovascular: Regular rate, regular rythm. midsternal chest ternderness on palpation. Lungs:Normal breath sounds, no wheezes or crackles. Abdomen:Soft, non-tender, no rigidity. Extremities:No deformity, no edema or tenderness, no joint swelling or clubbing. Neurological:Normal cognition, no weakness, no numbness. Rest of the physical exam is non contributory Internal Medicine: Result - Labs CBC & Chem 7: 08/12/17 04:20 08/12/17 04:20 Labs: Short CBC 08/12/17 Range/Units 04:20 WBC 4.8 (4.3-11.1) K/mcL Hgb 9.6 L (11.5-15.4) g/dL Hct 32.1 L (35.3-44.9) % Plt Count 196 (140-400) K/mcL Neutrophils # 3.0 (1.6-8.9) K/mcL BMP 08/12/17 04:20 Sodium 138 Potassium 3.1 L Chloride 100 Carbon Dioxide 27 BUN 13 Creatinine 1.95 H Glucose 190 H Calcium 8.2 L Cardiac Enzymes 08/12/17 08/12/17 Range/Units 04:20 10:40 Troponin I 0.03 0.04 H* (< 0.04) ng/mL Liver Function 08/12/17 Range/Units 04:20 Total Bilirubin 0.4 (0.3-1.0) mg/dL AST 11 L (13-39) Units/L ALT 9 (7-52) Units/L Alkaline Phosphatase 91 (34-104) Units/L Albumin 3.4 L (3.5-5.7) g/dL - ABG Interpretation ABG results: PT/INR, D-dimer PT 23.2 Seconds (9.4-12.1) H 08/12/17 04:20 Consult Discharge Plan - Plan Referrals: Mauro Dockery MD [Primary Care Provider] - (web request sent on 08/12/17)
--- NOTE | 2017-08-12 13:03 | Cardiology Consult Note ---
<Saleem Drake R - Last Filed: 08/12/17 13:19> Date of Encounter: 08/12/17 Time of Encounter: 13:01 Assessment and Plan (1) Chest pain Current Visit: Yes Status: Acute Mostly atypical chest pain--started yesterday evening and has been constant, worse on deep inspiration. Did not improve with nitro. Does state pain improves with rest. Reports pain in her chest since . Troponin negative x 2 then 0.04--borderline. EKG with no concerning changes. TTE 11/2016 showed preserved EF and no WMA. Declines stress test and declines LHC stating her BP drops when attempting stress test and with IVP dye. R/B/A discussed. Cardiac risk factors include HTN, DM, and family history. Patient prefers medical management and there is no indication for further cardiac testing. Recommend increasing Imdur from 60mg to 120mg daily. No asa due to allergy. Continue statin and bb. Anticipate sign off once seen and evaluated by Dr. Kemp. Qualifiers: Chest pain type: other chest pain Qualified Code(s): R07.89 - Other chest pain; R07.8 - Other chest pain (2) Elevated troponin Current Visit: Yes Status: Acute Troponin negative x 2 then 0.04--borderline in setting of ESRD on dialysis and accelerated HTN. Suspect demand ischemia. TTE 11/2016 EF preserved. As above, pt declines stress test or LHC. Continue Statin, BB, increase Imdur. No ASA due to allergy. Discussion w patient/family: The assessment and plan as outlined above was discussed with the patient and/or family members who expressed understanding and agreement. All questions were answered. Thank you for involving us in the care of your patient. Please call with any questions. I will discuss all the above with Dr. Kemp and make changes as necessary. History of Present Illness Consult date: 08/12/17 Consult reason: chest pain Chief complaint: chest pain History of present illness: Ms. Mars is a 62 year old female with a PMHx of DM, HTN, diastolic CHF, hyperlipidemia, COPD, DVT with IVC filter and anticoagulated on Coumadin, ESRD on HD, anemia, TIA who presented to ED for chest pain. She reports chest pain started yesterday evening ~6:50PM during dialysis. Described as midsternal, sharp and achy associated with dyspnea and diaphoresis. She reports it has been constant since yesterday evening, no improvement with nitro. Worse on deep inspiration and exertion, improves with rest/sleeping. Troponin negative x 2 and 0.04. Cardiology consulted for further recs. No known CAD hx. EKG SR, no ischemic changes. Prior CV testing: TTE 11/23/16: Technically suboptimal due to poor echocardiographic windows. Definity contrast utilized. Overall LV function appears grossly normal. EF 60- 65%. No significant valvular heart disease by Doppler criteria. There is no evidence of a PFO by color Doppler or saline contrast. Past Med Surg Social Fam HX - Past Medical History Medical history: arthritis, CHF, COPD, DVT, diabetes, GERD, hyperlipidemia, hypertension, migraine, osteoporosis, renal disease, thyroid disease, other Additional medical history: dialysis 3 days a week Psychiatric history: anxiety, depression - Past Surgical History Surgical History: appendectomy, hysterectomy, orthopedic, other, other, IVC filter Additional surgical history: carpal tunnel surgery left hand - Social History Smoking Status: Former smoker Smokeless Tobacco Status: No Alcohol use: none Drug use: none - Family History Father Living Status: Hx Family Cardiac Disorders: Yes Hx Family GI Disorders: No Hx Family Neurologic Disorders: Yes Mother Living Status: Hx Family Cardiac Disorders: Yes Hx Family Cancer: Yes Hx Family GI Disorders: No Hx Family Endocrine Disorder: Yes (DIABETES MELLITUS.) Medications and Allergies Meclizine [Antivert] 25 mg PO TID 09/12/14 [History] Allopurinol [Zyloprim 100 MG] 100 mg PO DAILY 03/22/15 [History] DiphenhydraMINE [Benadryl] 25 mg PO TID 03/22/15 [History] Exenatide Microspheres [Bydureon Pen] 2 mg SQ WE 03/22/15 [History] Lidocaine Patch [Lidoderm 5% patch] 1 - 3 patch TP DAILY 03/22/15 [History] Nitroglycerin [Nitrostat] 0.4 mg SL Q5M PRN 03/22/15 [History] Promethazine [Phenergan] 25 mg PO TID 03/22/15 [History] clonazePAM [Klonopin] 1 mg PO HS 03/22/15 [History] Albuterol Neb [AccuNeb] 1.25 mg IH QID 05/06/16 [History] Nystatin POWDER [Nystop] 1 appl TP QID 05/06/16 [History] Rosuvastatin [Crestor] 20 mg PO HS 05/06/16 [History] Acetaminophen [Tylenol] 650 mg PO Q4-6H PRN 11/10/16 [History] Omeprazole [PriLOSEC] 40 mg PO DAILY 11/10/16 [History] Isosorbide MONOnitrate (24 HR) [Imdur] 60 mg PO QPM #30 tab.er.24h 11/11/16 [Rx] Potassium Chloride [Klor-Con 10] 10 meq PO BID 11/11/16 [History] Gabapentin [Neurontin] 100 mg PO TID #90 capsule 11/27/16 [Rx] Albuterol Sulfate [Ventolin Hfa] 2 puff IH Q4H PRN 08/12/17 [History] Calcium Acetate [Phos-LO] 1,334 mg PO TID 08/12/17 [History] Cyclobenzaprine [Flexeril] 10 mg PO TID 08/12/17 [History] Docusate [Colace] 100 mg PO TID 08/12/17 [History] Doxepin HCl 50 mg PO HS 08/12/17 [History] Ergocalciferol (VITAMIN D2) [Vitamin D2] 50,000 unit PO DAILY 08/12/17 [History] Furosemide [Lasix] 20 mg PO BID 08/12/17 [History] Furosemide [Lasix] 40 mg PO QAM 08/12/17 [History] Insulin ASPART [Novolog Flexpen] 32 unit SQ TIDAC 08/12/17 [History] Insulin Glargine,Hum.rec.anlog [Lantus Solostar] 100 unit SQ BID 08/12/17 [ History] Levothyroxine Sodium [Levoxyl] 125 mcg PO QAM 08/12/17 [History] Metoprolol XL (24 HR) Succ [Toprol Xl] 25 mg PO DAILY 08/12/17 [History] Warfarin [Coumadin] 5 mg PO DAILY 08/12/17 [History] hydrOXYzine HCl [Hydroxyzine HCl] 25 mg PO TID 08/12/17 [History] 3 Allergy/AdvReac Type Severity Reaction Status Date / Time aspirin Allergy Hives Verified 08/12/17 08:48 cephalexin [From Keflex] Allergy Difficulty Verified 08/12/17 08:48 Breathing codeine Allergy Hypertensio Verified 08/12/17 08:48 n Cortisone Allergy See Verified 08/12/17 08:48 Comments hydrocortisone Allergy Hypertensio Verified 08/12/17 08:48 n ibuprofen Allergy Hives Verified 08/12/17 08:48 Iodinated Contrast- Oral and Allergy See Verified 08/12/17 08:48 IV Dye Comments [Iodinated Contrast Media - IV Dye] lidocaine [From Xylocaine] Allergy See Verified 08/12/17 08:48 Comments loratadine [From Claritin] Allergy Hives Verified 08/12/17 08:48 methylprednisolone Allergy Hypertensio Verified 08/12/17 08:48 [From Solu-Medrol] n Penicillins Allergy See Verified 08/12/17 08:48 Comments prednisone Allergy Hypertensio Verified 08/12/17 08:48 n Procaine [From Novocain] Allergy See Verified 08/12/17 08:48 Comments propoxyphene [From Darvon] Allergy See Verified 08/12/17 08:48 Comments pseudoephedrine Allergy Hives Verified 08/12/17 08:48 [From Sudafed] ropinirole [From Requip] Allergy See Verified 08/12/17 08:48 Comments tramadol AdvReac See Verified 01/07/17 18:11 Comments All Systems Review: The remainder of the systems were reviewed and are negative - Cardiovascular Cardiovascular: as per HPI, chest pain at rest, chest pain with exertion, diaphoresis - Respiratory Respiratory: dyspnea Physical Examination Vital Signs, Last 4 Hours Temp Pulse Resp BP Pulse Ox 08/12/17 10:47 98.0 F 85 16 192/65 100 08/12/17 09:27 100 08/12/17 09:26 100 Vital Signs Temp Pulse Resp BP Pulse Ox 08/12/17 10:47 98.0 F 85 16 192/65 100 08/12/17 09:27 100 08/12/17 09:26 100 08/12/17 07:15 98.3 F 84 16 125/70 100 08/12/17 02:49 97.7 F 86 16 188/102 100 08/12/17 02:09 86 16 100 08/12/17 00:26 87 179/104 100 07/02/18 22:31 80 130/96 07/02/18 20:01 98.2 F 90 18 128/92 97 Intake and Output 08/11/17 08/12/17 08/12/17 23:59 07:59 15:59 Intake Total 100 / 100 480 / 480 Output Total 250 / 250 Balance -150 / -150 480 / 480 Intake: Oral 100 / 100 480 / 480 Output: Urine 250 / 250 Other: Meal Breakfast Percent of Meal Consumed 30% # Voids 1 Weight 161 kg 160.2 kg Blood Glucose* 144 169 Patient Weight 08/12/17 23:59 Weight 160.2 kg General: Conversant, No Apparent Distress HEENT: Atraumatic, Normocephaly, Mucus Membranes Moist Neck: No JVD, Normal carotid pulses Cardiac: Reg Rate and Rhythm, Normal S1 and S2, No Murmur Lungs: Other (diminished) Neuro: Alert and responsive, No focal deficits noted Abdomen: Soft, Non-Tender Skin: No rashes noted on visualized skin Musculoskeletal: No Chest Wall Tenderness Extremities: Other (mild BLE edema) Results 08/12/17 04:20 08/12/17 04:20 Lab Results 08/12/17 08/12/17 08/12/17 04:20 04:20 04:20 WBC 4.8 Hgb 9.6 L Hct 32.1 L Plt Count 196 INR 2.1 APTT 44.4 H Sodium Potassium Chloride Carbon Dioxide BUN Creatinine Glucose Calcium Magnesium Total Bilirubin AST ALT Alkaline Phosphatase Troponin I 0.03 08/12/17 08/12/17 04:20 10:40 WBC Hgb Hct Plt Count INR APTT Sodium 138 Potassium 3.1 L Chloride 100 Carbon Dioxide 27 BUN 13 Creatinine 1.95 H Glucose 190 H Calcium 8.2 L Magnesium 1.6 Total Bilirubin 0.4 AST 11 L ALT 9 Alkaline Phosphatase 91 Troponin I 0.04 H* Short CBC 08/12/17 08/11/17 Range/Units 04:20 20:56 WBC 4.8 5.2 (4.3-11.1) K/mcL Hgb 9.6 L 9.4 L (11.5-15.4) g/dL Hct 32.1 L 31.9 L (35.3-44.9) % Plt Count 196 215 (140-400) K/mcL Neutrophils # 3.0 3.0 (1.6-8.9) K/mcL BMP 08/12/17 08/11/17 Range/Units 04:20 20:56 Sodium 138 139 (136-145) mEq/L Potassium 3.1 L 3.3 L (3.5-5.1) mEq/L Chloride 100 100 (98-107) mEq/L Carbon Dioxide 27 25 (23-29) mEq/L BUN 13 10 (8-23) mg/dL Creatinine 1.95 H 1.75 H (0.60-1.20) mg/dL Glucose 190 H 180 H (70-105) mg/dL Calcium 8.2 L 8.0 L (8.6-10.3) mg/dL Cardiac Enzymes 08/12/17 08/12/17 08/11/17 Range/Units 10:40 04:20 20:56 Troponin I 0.04 H* 0.03 0.03 (< 0.04) ng/mL Liver Function 08/12/17 Range/Units 04:20 Total Bilirubin 0.4 (0.3-1.0) mg/dL AST 11 L (13-39) Units/L ALT 9 (7-52) Units/L Alkaline Phosphatase 91 (34-104) Units/L Albumin 3.4 L (3.5-5.7) g/dL Impressions Chest X-Ray 08/11/17 19:47 IMPRESSION: No acute process. Mild cardiomegaly D/ / Chano Cohen MD / Chano Cohen MD Interpreting Provider: Chano Cohen MD Active Medications Acetaminophen (Tylenol) 650 mg PO Q6HR PRN PRN Reason: Mild Pain/Fever Stop: 02/11/18 03:42 Hydrocodone Bitart/Acetaminophen ([place] 5-325 Mg) 1 tab PO Q6HR PRN PRN Reason: Moderate Pain Stop: 02/11/18 03:42 Last Admin: 08/12/17 04:01 Dose: 1 tab Albuterol Sulfate (Albuterol Inhaler) 2 puff IH Q4H PRN PRN Reason: Shortness Of Breath/Wheezing Stop: 02/11/18 12:16 Calcium Acetate (Phos-Lo) 1,334 mg PO TIDWM [facility] Stop: 02/11/18 17:01 Dextrose/Water (Dextrose 50% (Syg)) 25 ml IVP AD PRN PRN Reason: Hypoglycemia Stop: 02/11/18 12:26 Docusate Sodium (Colace) 100 mg PO BID [place] PRN Reason: Protocol Stop: 02/11/18 21:01 Gabapentin (Neurontin) 100 mg PO TID [facility] Stop: 02/11/18 15:01 Glucagon (Glucagen) 1 mg IM ONCE PRN PRN Reason: Hypoglycemia Stop: 02/11/18 12:26 Glucose (Gluctose) 15 gm PO ONCE PRN PRN Reason: Hypoglycemia Stop: 02/11/18 12:26 Glucose (Gluctose) 30 gm PO ONCE PRN PRN Reason: Hypoglycemia Stop: 02/11/18 12:26 Heparin Sodium (Porcine) (Heparin) 9,000 unit IVP Q6HR PRN PRN Reason: SEE COMMENTS Stop: 02/11/18 21:01 Heparin Sodium (Porcine) (Heparin) 4,500 unit IVP Q6H PRN PRN Reason: SEE COMMENTS Stop: 02/11/18 21:01 Hydroxyzine HCl (Hydroxyzine) 25 mg PO TID PRN PRN Reason: Anxiety Stop: 02/11/18 15:01 Dextrose (Dextrose 5%) 1,000 mls @ 100 mls/hr IVC .Q10H PRN PRN Reason: HYPOGLYCEMIA Stop: 02/11/18 12:26 Heparin Sodium/Dextrose (Heparin 25,000 Unit/500 Ml D5w) 25,000 unit in 500 mls @ 44.856 mls/hr IVC .Q11H9M [place]; 14 UNIT/KG/HR PRN Reason: Protocol Stop: 02/11/18 21:01 Insulin Detemir (Levemir) 10 unit SQ BID [facility] Stop: 02/11/18 21:01 Insulin Human Lispro (Humalog) 0 units SQ HS [facility] PRN Reason: Protocol Stop: 02/11/18 21:01 Insulin Human Lispro (Humalog) 0 units SQ TIDAC [facility] PRN Reason: Protocol Stop: 02/11/18 16:31 Isosorbide Mononitrate (Imdur) 60 mg PO QPM [facility] Stop: 02/11/18 18:01 Metoprolol Succinate (Toprol Xl) 25 mg PO DAILY [facility] Stop: 02/12/18 09:01 Naloxone HCl (Narcan) 0.4 mg IVP Q2MIN PRN PRN Reason: SEE COMMENTS Stop: 02/11/18 03:42 Nitroglycerin (Nitroglycerin) 0.4 mg SL Q5M PRN PRN Reason: Chest Pain Stop: 02/11/18 12:16 Nystatin (Nystop) 1 appl TP TID [facility] Stop: 02/11/18 09:01 Last Admin: 08/12/17 09:38 Dose: 1 appl Omeprazole (Prilosec) 40 mg PO DAILY [facility] Stop: 02/12/18 09:01 Potassium Chloride (Potassium Chloride) 10 meq PO BIDWM [facility] Stop: 02/11/18 12:23 Rosuvastatin Calcium (Crestor) 20 mg PO HS [facility] Stop: 02/11/18 21:01 - Imaging and Cardiology Echo: report reviewed Consult Discharge Plan - Plan Referrals: Mauro Dockery MD [Primary Care Provider] - (web request sent on 08/12/17) <Jad Kemp - Last Filed: 08/12/17 16:30> Date of Encounter: 08/12/17 - Attending Attestation I have personally performed a face to face evaluation on this patient. I have reviewed and agree with the care plan. History and Exam by me shows: CC: Chest pain HPI: PT complains of mid sternal sharp, stabbing pain, started at rest during diaylsis, 8/10 at most severe, has improved, but not resolved, now 3/10. Pt reports chest pain did not change with trial of Sl ntg. She notes it does improve with changes in position, but comes back if stays in any one position very long. She notes chest pain improves with rest. She has extensive history of recurrent atypical chest pain, has refused all recommendations for stress imaging and/or LHC. She reports will refuse any further stress imaging or LHC. Pt reports she "knows her body, and any testing will drop her blood pressure and make her sick." PMH: Reviewed, pt evaluated last month for similar complaints ROS: reviewed, Meds; REviewed. PE: pt seen and examined, agree with documentation IMP/Plan: 1. Chest pain, atypical, has ruled out for ACS by EKG and enzematic criteria, would benefit from provocative testing, however pt refuses. She is on optimal medical tx as far as she can tolerate, very little else to add if she refuses further evaluation, will increase Imdur. Will sign off, available to help if pt changes her mind. Assessment and Plan Discussion w patient/family: The assessment and plan as outlined above was discussed with the patient and/or family members who expressed understanding and agreement. All questions were answered. Thank you for involving us in the care of your patient. Please call with any questions. History of Present Illness History of present illness: Ms. Mars is a 62 year old female All Systems Review: The remainder of the systems were reviewed and are negative Physical Examination Vital Signs, Last 4 Hours Temp Pulse Resp Pulse Ox 08/12/17 15:22 97.9 F 88 18 100 Results 08/12/17 04:20 08/12/17 04:20 Lab Results 08/12/17 08/12/17 08/12/17 04:20 04:20 04:20 WBC 4.8 Hgb 9.6 L Hct 32.1 L Plt Count 196 INR 2.1 APTT 44.4 H Sodium Potassium Chloride Carbon Dioxide BUN Creatinine Glucose Calcium Magnesium Total Bilirubin AST ALT Alkaline Phosphatase Troponin I 0.03 08/12/17 08/12/17 04:20 10:40 WBC Hgb Hct Plt Count INR APTT Sodium 138 Potassium 3.1 L Chloride 100 Carbon Dioxide 27 BUN 13 Creatinine 1.95 H Glucose 190 H Calcium 8.2 L Magnesium 1.6 Total Bilirubin 0.4 AST 11 L ALT 9 Alkaline Phosphatase 91 Troponin I 0.04 H*
[2017-08-12] MEDS: Gabapentin 100 MG CAPSULE PO SCH ×2 (15:16→21:26)
[2017-08-12] MEDS: Insulin LISPRO 300 UNITS/3 ML VIAL SQ SCH (16:50)
[2017-08-12] MEDS: Calcium Acetate 667 MG CAPSULE PO SCH (16:52)
[2017-08-12] MEDS ORDERED: Isosorbide MONOnitrate (24 HR) 60 MG TAB.ER.24H PO SCH (18:00)
[2017-08-12] MEDS ORDERED: Isosorbide MONOnitrate (24 HR) 30 MG TAB.ER.24H PO SCH (18:00)
--- NOTE | 2017-08-12 20:03 | Electrocardiograph Report ---
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
[2017-08-12] MEDS ORDERED: Ondansetron 4 MG/2 ML VIAL IVP PRN (20:36)
[2017-08-12] MEDS ORDERED: Insulin DETEMIR 100 UNIT/ML X5UNITS SQ SCH (21:00)
[2017-08-12] MEDS ORDERED: Heparin 25,000 UNIT/500 ML D5W 25,000 UNIT/500 ML BAG IVC SCH (21:00)
[2017-08-12] MEDS ORDERED: *HR* Heparin 5,000 UNIT/ML VIAL IVP PRN ×2 (21:00)
[2017-08-12] MEDS ORDERED: Insulin LISPRO 300 UNITS/3 ML VIAL SQ SCH (21:00)
[2017-08-12] MEDS ORDERED: Metoprolol XL (24 HR) Succ 25 MG TAB.ER.24H PO ONE (21:45)
[2017-08-12] MEDS: Insulin DETEMIR 100 UNIT/ML X5UNITS SQ SCH (22:33)
[2017-08-12] MEDS ORDERED: *HR* Heparin 5,000 UNIT/ML VIAL SQ ONE (22:39)
[2017-08-12] MEDS ORDERED: *HR* Warfarin 5 MG TABLET PO ONE (23:00)
[2017-08-13] MEDS: Insulin LISPRO 300 UNITS/3 ML VIAL SQ SCH ×2 (08:20→12:10)
[2017-08-13] MEDS: Gabapentin 100 MG CAPSULE PO SCH ×2 (08:21→15:37)
[2017-08-13] MEDS: Calcium Acetate 667 MG CAPSULE PO SCH ×2 (08:21→12:14)
[2017-08-13] MEDS: Insulin DETEMIR 100 UNIT/ML X5UNITS SQ SCH (08:22)
[2017-08-13] MEDS: Nystatin POWDER 30 GM BOTTLE TP SCH (08:22)
[2017-08-13] MEDS ORDERED: Metoprolol XL (24 HR) Succ 25 MG TAB.ER.24H PO SCH (09:00)
[2017-08-13] MEDS ORDERED: 0.9 % Sodium Chloride 250 ML IVC PRN (10:18)
[2017-08-13] MEDS ORDERED: 0.9 % Sodium Chloride 1,000 ML PRIME SCH (10:30)
--- NOTE | 2017-08-13 11:15 | Nephrology Consult Note ---
Date of Encounter: 08/13/17 Time of Encounter: 10:00 Assessment and Plan (1) ESRD (end stage renal disease) on dialysis Current Visit: Yes Status: Acute Will dialyze today for 3 hrs with 4k bath with UF goal of 2-3kg as tolerated Will plan 24hrs urine outpatient to assess for renal recovery given SCr of 1.95 , GFR though UOP at 250cc yesterday not impressive (2) Hypokalemia Current Visit: Yes Status: Acute Potassium noted low at 3.1, will use higher potassium bath at HD today (3) Anemia in chronic kidney disease Current Visit: Yes Status: Acute Hgb fairly stable at 9.6, will monitor Qualifiers: Qualified Code(s): N18.9 - Chronic kidney disease, unspecified; D63.1 - Anemia in chronic kidney disease (4) Chest pain Current Visit: Yes Status: Acute Per cardiology Qualifiers: Chest pain type: other chest pain Qualified Code(s): R07.89 - Other chest pain; R07.8 - Other chest pain History of Present Illness - Reason for Consult Consult date: 08/13/17 end stage renal disease Requesting physician: Benjamin Vasquez - History of Present Illness 62 y o female with PMH of DM, HTN, COPD, dCHF, morbid obesity and ESRD newly started on HD this past month after with chest pian that started while on HD. renal consulted for HD today. Pt seen and examined very emotional about letting "her body get to this state". She denies any chest pain at present and no SOB but affirms some LE edema. Review of previous labs show SCr had been 3.58, GFR 13 last month and 2.57, GFR 19 in april. Today SCr noted at 1.95, GFR 26 which is pretty good. It is unclear if pt is having some renal recovery but will monitor 24hrs urine for crCl here or outpatient on discharge. Past Med Surg Social Fam HX - Past Medical History Medical history: arthritis, CHF, COPD, DVT, diabetes, GERD, hyperlipidemia, hypertension, migraine, osteoporosis, renal disease, thyroid disease, other Additional medical history: dialysis 3 days a week Psychiatric history: anxiety, depression - Past Surgical History Surgical History: appendectomy, hysterectomy, orthopedic, other, other, IVC filter Additional surgical history: carpal tunnel surgery left hand - Social History Smoking Status: Former smoker Smokeless Tobacco Status: No Alcohol use: none Drug use: none - Family History Father Living Status: Hx Family Cardiac Disorders: Yes Hx Family GI Disorders: No Hx Family Neurologic Disorders: Yes Mother Living Status: Hx Family Cardiac Disorders: Yes Hx Family Cancer: Yes Hx Family GI Disorders: No Hx Family Endocrine Disorder: Yes (DIABETES MELLITUS.) Medications and Allergies Meclizine [Antivert] 25 mg PO TID 09/12/14 [History] Allopurinol [Zyloprim 100 MG] 100 mg PO DAILY 03/22/15 [History] DiphenhydraMINE [Benadryl] 25 mg PO TID 03/22/15 [History] Exenatide Microspheres [Bydureon Pen] 2 mg SQ WE 03/22/15 [History] Lidocaine Patch [Lidoderm 5% patch] 1 - 3 patch TP DAILY 03/22/15 [History] Nitroglycerin [Nitrostat] 0.4 mg SL Q5M PRN 03/22/15 [History] Promethazine [Phenergan] 25 mg PO TID 03/22/15 [History] clonazePAM [Klonopin] 1 mg PO HS 03/22/15 [History] Albuterol Neb [AccuNeb] 1.25 mg IH QID 05/06/16 [History] Nystatin POWDER [Nystop] 1 appl TP QID 05/06/16 [History] Rosuvastatin [Crestor] 20 mg PO HS 05/06/16 [History] Acetaminophen [Tylenol] 650 mg PO Q4-6H PRN 11/10/16 [History] Omeprazole [PriLOSEC] 40 mg PO DAILY 11/10/16 [History] Isosorbide MONOnitrate (24 HR) [Imdur] 60 mg PO QPM #30 tab.er.24h 11/11/16 [Rx] Potassium Chloride [Klor-Con 10] 10 meq PO BID 11/11/16 [History] Gabapentin [Neurontin] 100 mg PO TID #90 capsule 11/27/16 [Rx] Albuterol Sulfate [Ventolin Hfa] 2 puff IH Q4H PRN 08/12/17 [History] Calcium Acetate [Phos-LO] 1,334 mg PO TID 08/12/17 [History] Cyclobenzaprine [Flexeril] 10 mg PO TID 08/12/17 [History] Docusate [Colace] 100 mg PO TID 08/12/17 [History] Doxepin HCl 50 mg PO HS 08/12/17 [History] Ergocalciferol (VITAMIN D2) [Vitamin D2] 50,000 unit PO DAILY 08/12/17 [History] Furosemide [Lasix] 20 mg PO BID 08/12/17 [History] Furosemide [Lasix] 40 mg PO QAM 08/12/17 [History] Insulin ASPART [Novolog Flexpen] 32 unit SQ TIDAC 08/12/17 [History] Insulin Glargine,Hum.rec.anlog [Lantus Solostar] 100 unit SQ BID 08/12/17 [ History] Levothyroxine Sodium [Levoxyl] 125 mcg PO QAM 08/12/17 [History] Metoprolol XL (24 HR) Succ [Toprol Xl] 25 mg PO DAILY 08/12/17 [History] Warfarin [Coumadin] 5 mg PO DAILY 08/12/17 [History] hydrOXYzine HCl [Hydroxyzine HCl] 25 mg PO TID 08/12/17 [History] 3 Allergy/AdvReac Type Severity Reaction Status Date / Time aspirin Allergy Hives Verified 08/12/17 08:48 cephalexin [From Keflex] Allergy Difficulty Verified 08/12/17 08:48 Breathing codeine Allergy Hypertensio Verified 08/12/17 08:48 n Cortisone Allergy See Verified 08/12/17 08:48 Comments hydrocortisone Allergy Hypertensio Verified 08/12/17 08:48 n ibuprofen Allergy Hives Verified 08/12/17 08:48 Iodinated Contrast- Oral and Allergy See Verified 08/12/17 08:48 IV Dye Comments [Iodinated Contrast Media - IV Dye] lidocaine [From Xylocaine] Allergy See Verified 08/12/17 08:48 Comments loratadine [From Claritin] Allergy Hives Verified 08/12/17 08:48 methylprednisolone Allergy Hypertensio Verified 08/12/17 08:48 [From Solu-Medrol] n Penicillins Allergy See Verified 08/12/17 08:48 Comments prednisone Allergy Hypertensio Verified 08/12/17 08:48 n Procaine [From Novocain] Allergy See Verified 08/12/17 08:48 Comments propoxyphene [From Darvon] Allergy See Verified 08/12/17 08:48 Comments pseudoephedrine Allergy Hives Verified 08/12/17 08:48 [From Sudafed] ropinirole [From Requip] Allergy See Verified 08/12/17 08:48 Comments tramadol AdvReac See Verified 01/07/17 18:11 Comments Review of Systems All Systems: reviewed and no additional remarkable complaints except as stated ( 10 systems reviewed and noted in HPI) Exam - Vital Signs Vital signs: Initial Vital Signs Temp Pulse Resp BP Pulse Ox 98.2 F 90 18 128/92 97 08/11/17 20:01 08/11/17 20:01 08/11/17 20:01 08/11/17 20:01 08/11/17 20:01 Vital Signs - Last 8 Hours Temp Pulse Resp BP Pulse Ox 08/13/17 08:35 99 08/13/17 07:36 98.1 F 80 19 156/95 99 08/13/17 04:08 98.8 F 89 17 182/84 99 Intake and Output 08/12/17 08/13/17 08/13/17 23:59 07:59 15:59 Intake Total 250 / 250 Output Total 0 / 0 Balance 250 / 250 Intake: Oral 250 / 250 Output: Urine 0 / 0 Other: Meal Breakfast Percent of Meal Consumed 100% Stool Size Moderate Stool Consistency loose Stool Characteristics Normal for Patient Stool Color Brown # Bowel Movements 1 Weight 159.4 kg Blood Glucose* 162 147 - General Appearance General appearance: well-developed, well-nourished EENT: ATNC, mucous membranes moist Neck: no JVD, supple Respiratory: clear Cardiology: edema (LE bilat), normal S1, normal S2 - Dialysis Access Dialysis Vascular Access: Venous Catheter (permcath) Gastrointestinal: no tenderness, no guarding, obese Integumentary: warm and dry Neurologic: no focal deficit Musculoskeletal: no deformities Psychiatric: mood/affect appropriate, cooperative Results - Lab Results 08/12/17 04:20 08/12/17 04:20 Most recent lab results Calcium 8.2 mg/dL (8.6-10.3) L 08/12/17 04:20 Phosphorus 3.0 mg/dL (2.7-4.5) 08/12/17 04:20 Magnesium 1.6 mg/dL (1.6-2.6) 08/12/17 04:20 Consult Discharge Plan - Plan Referrals: Mauro Dockery MD [Primary Care Provider] - (web request sent on 08/12/17)
[2017-08-13 12:36] LABS: Mean Platelet Volume 9.7 fL (9.4-12.4); Red Cell Distribution Width 17.5 % (11.5-14.5)
--- NOTE | 2017-08-13 12:36 | Discharge Summary ---
- NOTES TO OUTPATIENT PROVIDER Notes to Outpatient Provider: On warfarin with fluctuation INR. Please follow up outpatient and adjust as appropriate. Orders not resulted at time of discharge: Pending orders 08/12/17 03:41 Urinalysis reflex Microscopic [URIN] Routine 08/13/17 12:15 CMP [Comprehensive Metabolic Panel] Stat Complete Blood Count [HEME] Stat 08/14/17 04:00 INR/PT [Prothrombin Time INR] [COAG] AM 0400 08/15/17 04:00 INR/PT [Prothrombin Time INR] [COAG] AM 0400 Date of Encounter: 08/13/17 Time of Encounter: 09:00 - Discharge Diagnosis (1) Chest pain Priority: Primary Status: Acute Assessment and Plan: Atypical chest pain worse on deep inspiration and palpation, not improve with nitro. Had improved since admission. troponin negative x2 with 3rd troponin .04 likely due to demand ischemia in light of ESRD concerning given risk factors of morbid obesity, HTN, DM, and family history cardiology evaluated and discussed with patients regarding possible stress test and LHC, patient declines all interventions Will continue medical management at this time with ASA statin, BB, increase imdur to 120 mg from 60 mg daily per cardio rec Low suspicion for PE, patient not SOB. saturating well on RA. 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 Will discharge home today with medical management of chest pain. Qualifiers: Chest pain type: other chest pain Qualified Code(s): R07.89 - Other chest pain; R07.8 - Other chest pain (2) Acute worsening of stage 3 chronic kidney disease Priority: Secondary Status: Acute Assessment and Plan: Receiving HD at this time Follows with nephrology (3) Dependence on renal dialysis Priority: Secondary Status: Acute Assessment and Plan: HD today as scheduled Continue with HD at home scheduled (4) DM (diabetes mellitus), type 2, uncontrolled Priority: Secondary Status: Chronic Assessment and Plan: On home levemir 100 BID, however BS was only 90-100s on 10 units of Levemir Will discharge on this current regimen right now and can be uptitrated by PMD if needed as outpatient Qualifiers: Diabetes mellitus 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 treater helper insulin use: with longterm use Diabetes mellitus complication status: with kidney complications Diabetes mellitus complication detail: with chronic kidney disease Chronic kidney disease stage : stage 3 (moderate) Qualified Code(s): E11.22 - Type 2 diabetes mellitus with diabetic chronic kidney disease; E11.65 - Type 2 diabetes mellitus with hyperglycemia; N18.3 - Chronic kidney disease, stage 3 (moderate); Z79.4 - snf (current) use of insulin (5) HTN (hypertension) Priority: Secondary Status: Chronic Assessment and Plan: BP appears uncontrolled on Toprol 25 mg daily prescribed However patient refusing to let nurse take BP on arm and only allow on the legs with heavy fat tissue Can be follow outpatient Qualifiers: Hypertension type: essential hypertension Qualified Code(s): I10 - Essential (primary) hypertension (6) History of DVT (deep vein thrombosis) Priority: Secondary Status: Chronic Assessment and Plan: IVF filtered in place. on chronic coumadin has been managed by pharmacy continue with current dose for outpatient follow up of INR Repeat Dopplers on this admission negative (7) Hypothyroidism Priority: Secondary Status: Chronic Assessment and Plan: continue current home medications Qualifiers: Hypothyroidism type: acquired Qualified Code(s): E03.9 - Hypothyroidism, unspecified Hospital course: Ms. Mars is a 62 year old female with PMH recent chest pain, CKD on HD, DM, HTN, Hypothyroid and multiple DVTs presented to the ED with complaints of chest pain. Troponin was negative x 2 with 3rd troponin mildly elevated by .04 in light of kidney disease. Patient was evaluated by cardiology given risk factors but denies any further workup or interventions including stress test and LHC. Prefers medical management. Patient's imdur was increased from 60 to 120 mg and patient no longer reports any chest pain, stable for discharge home to f/u with PMD. Discharge discussed with: patient, family, nurse - Time Spent with Patient Total time spent providing and/or coordinating discharge services: Greater than 30 minutes - Discharge Medications Prescriptions: Insulin DETEMIR [Levemir] 10 unit SQ BID 30 Days #1 each Isosorbide MONOnitrate (24 HR) [Imdur] 120 mg PO QPM 30 Days #30 tab.er.24h Home Medications: Meclizine [Antivert] 25 mg PO TID 09/12/14 [History] Allopurinol [Zyloprim 100 MG] 100 mg PO DAILY 03/22/15 [History] DiphenhydraMINE [Benadryl] 25 mg PO TID 03/22/15 [History] Exenatide Microspheres [Bydureon Pen] 2 mg SQ WE 03/22/15 [History] Lidocaine Patch [Lidoderm 5% patch] 1 - 3 patch TP DAILY 03/22/15 [History] Nitroglycerin [Nitrostat] 0.4 mg SL Q5M PRN 03/22/15 [History] Promethazine [Phenergan] 25 mg PO TID 03/22/15 [History] clonazePAM [Klonopin] 1 mg PO HS 03/22/15 [History] Albuterol Neb [AccuNeb] 1.25 mg IH QID 05/06/16 [History] Nystatin POWDER [Nystop] 1 appl TP QID 05/06/16 [History] Rosuvastatin [Crestor] 20 mg PO HS 05/06/16 [History] Acetaminophen [Tylenol] 650 mg PO Q4-6H PRN 11/10/16 [History] Omeprazole [PriLOSEC] 40 mg PO DAILY 11/10/16 [History] Potassium Chloride [Klor-Con 10] 10 meq PO BID 11/11/16 [History] Gabapentin [Neurontin] 100 mg PO TID #90 capsule 11/27/16 [Rx] Albuterol Sulfate [Ventolin Hfa] 2 puff IH Q4H PRN 08/12/17 [History] Calcium Acetate [Phos-LO] 1,334 mg PO TID 08/12/17 [History] Cyclobenzaprine [Flexeril] 10 mg PO TID 08/12/17 [History] Docusate [Colace] 100 mg PO TID 08/12/17 [History] Doxepin HCl 50 mg PO HS 08/12/17 [History] Ergocalciferol (VITAMIN D2) [Vitamin D2] 50,000 unit PO DAILY 08/12/17 [History] Furosemide [Lasix] 20 mg PO BID 08/12/17 [History] Insulin ASPART [Novolog Flexpen] 32 unit SQ TIDAC 08/12/17 [History] Levothyroxine Sodium [Levoxyl] 125 mcg PO QAM 08/12/17 [History] Metoprolol XL (24 HR) Succ [Toprol Xl] 25 mg PO DAILY 08/12/17 [History] Warfarin [Coumadin] 5 mg PO DAILY 08/12/17 [History] hydrOXYzine HCl [Hydroxyzine HCl] 25 mg PO TID 08/12/17 [History] Insulin DETEMIR [Levemir] 10 unit SQ BID 30 Days #1 each 08/13/17 [Rx] Isosorbide MONOnitrate (24 HR) [Imdur] 120 mg PO QPM 30 Days #30 tab.er.24h 05/28 [Rx] Allergies/Adverse Reactions: 3 Allergy/AdvReac Type Severity Reaction Status Date / Time aspirin Allergy Hives Verified 08/12/17 08:48 cephalexin [From Keflex] Allergy Difficulty Verified 08/12/17 08:48 Breathing codeine Allergy Hypertensio Verified 08/12/17 08:48 n Cortisone Allergy See Verified 08/12/17 08:48 Comments hydrocortisone Allergy Hypertensio Verified 08/12/17 08:48 n ibuprofen Allergy Hives Verified 08/12/17 08:48 Iodinated Contrast- Oral and Allergy See Verified 08/12/17 08:48 IV Dye Comments [Iodinated Contrast Media - IV Dye] lidocaine [From Xylocaine] Allergy See Verified 08/12/17 08:48 Comments loratadine [From Claritin] Allergy Hives Verified 08/12/17 08:48 methylprednisolone Allergy Hypertensio Verified 08/12/17 08:48 [From Solu-Medrol] n Penicillins Allergy See Verified 08/12/17 08:48 Comments prednisone Allergy Hypertensio Verified 08/12/17 08:48 n Procaine [From Novocain] Allergy See Verified 08/12/17 08:48 Comments propoxyphene [From Darvon] Allergy See Verified 08/12/17 08:48 Comments pseudoephedrine Allergy Hives Verified 08/12/17 08:48 [From Sudafed] ropinirole [From Requip] Allergy See Verified 08/12/17 08:48 Comments tramadol AdvReac See Verified 01/07/17 18:11 Comments Date of admission: 08/12/17 01:49 Primary care physician: Mauro Dockery MD Consults: 08/12/17 03:52 Consult to Nutrition [CONS] Routine Comment: Consulting Provider: NUTRITION Reason for Dietary Consult: MST Score Consult to Tip Out Worker [CONS] Routine Reason for SW Consult: HAS HH,HOME O2,PASSPORT 08/12/17 10:00 Consult to Pastoral Services [CONS] Routine Comment: 08/12/17 12:28 Consult to Cardiology [CONS] Routine Comment: Consulting Provider: Cardiology Adriana Reason for Consult: persistent chest pain with mildly elevated troponin Call Completed: No 08/13/17 08:16 Consult to Nephrology [CONS] Routine Consulting Provider: Kidney Adriana/SANCHEZ/STEVEN/BABITA Reason for Consult: Renal disease needing HD Call Completed: No 08/13/17 10:30 Consult to Dialysis [CONS] ONCE - Constitutional Vitals: Temp Pulse Resp BP Pulse Ox 97.8 F 82 16 171/95 96 08/13/17 11:13 08/13/17 11:13 08/13/17 11:13 08/13/17 11:13 08/13/17 11:13 Exam: General: Alert and oriented. Morbidly obese. Skin: Diffuse bruising, worst over arms. HEENT: EOMI, pupils equal, round and reactive. Cardiovascular: Regular rate, regular rhythm. Lungs:Normal breath sounds, no wheezes or crackles. Abdomen:Soft, non-tender, no rigidity. Extremities:No deformity, no edema or tenderness, no joint swelling or clubbing. Neurological:Normal cognition, no weakness, no numbness. Rest of the physical exam is non contributory - Patient Status Disposition: Home, Self-Care Condition: Fair Overall status at discharge: patient is progressing back to baseline - Discharge Instructions Follow Up With: Mauro Dockery MD [Primary Care Provider] - (web request sent on 08/12/17) - Diet and Activity Activity: resume usual activities as tolerated
[2017-08-13 12:38] LABS: Basophils % 0.4 %; Eosinophils # 0.2 K/mcL (0.0-0.6); Eosinophils % 3.1 %; Hematocrit 31.6 % (35.3-44.9); Hemoglobin 9.2 g/dL (11.5-15.4); Immature Granulocytes % 0.4 % (0-4); Lymphocytes # 1.2 K/mcL (0.6-4.6); Mean Corpuscular HGB Conc 29.1 g/dL (31.6-35.5); Mean Corpuscular Hemoglobin 29.6 pg (28.0-33.3); Mean Corpuscular Volume 101.6 fL (83.0-100.0); Monocytes # 0.5 K/mcL (0.0-1.3); Monocytes % 9.4 %; Neutrophils # 3.2 K/mcL (1.6-8.9); Platelet Count 219 K/mcL (140-400); Red Blood Count 3.11 M/mcL (3.82-4.97); Segmented Neutrophils % 62.7 %
[2017-08-13 13:00] LABS: Albumin 3.4 g/dL (3.5-5.7); Albumin/Globulin Ratio 1.1 (1.1-2.2); Bilirubin,Total 0.4 mg/dL (0.3-1.0); Globulin 3.2 g/dL (2.4-3.5); Potassium 4.1 mEq/L (3.5-5.1); Total Protein 6.6 g/dL (6.4-8.9)
[2017-08-13 13:06] LABS: Hypochromasia Present (Not Present); Platelet Estimate Normal (Normal)
--- NOTE | 2017-08-13 14:06 | Physician Discharge Referral ---
- Diagnosis (1) Chest pain Status: Acute (2) Acute worsening of stage 3 chronic kidney disease Status: Acute (3) Dependence on renal dialysis Status: Acute (4) DM (diabetes mellitus), type 2, uncontrolled Status: Chronic (5) HTN (hypertension) Status: Chronic (6) History of DVT (deep vein thrombosis) Status: Chronic (7) Hypothyroidism Status: Chronic - Respiratory Orders Smoking Cessation: Smoking cessation has been advised. For more information, call the [place] Tobacco Quit Line at 3-847-UBAT-NOW. - Services Needed Following services are medically necessary services: Nursing, Home Health Aide - Transfer Medications Prescriptions: Insulin DETEMIR [Levemir] 10 unit SQ BID 30 Days #1 each Isosorbide MONOnitrate (24 HR) [Imdur] 120 mg PO QPM 30 Days #30 tab.er.24h Home Medications: Meclizine [Antivert] 25 mg PO TID 09/12/14 [History] Allopurinol [Zyloprim 100 MG] 100 mg PO DAILY 03/22/15 [History] DiphenhydraMINE [Benadryl] 25 mg PO TID 03/22/15 [History] Exenatide Microspheres [Bydureon Pen] 2 mg SQ WE 03/22/15 [History] Lidocaine Patch [Lidoderm 5% patch] 1 - 3 patch TP DAILY 03/22/15 [History] Nitroglycerin [Nitrostat] 0.4 mg SL Q5M PRN 03/22/15 [History] Promethazine [Phenergan] 25 mg PO TID 03/22/15 [History] clonazePAM [Klonopin] 1 mg PO HS 03/22/15 [History] Albuterol Neb [AccuNeb] 1.25 mg IH QID 05/06/16 [History] Nystatin POWDER [Nystop] 1 appl TP QID 05/06/16 [History] Rosuvastatin [Crestor] 20 mg PO HS 05/06/16 [History] Acetaminophen [Tylenol] 650 mg PO Q4-6H PRN 11/10/16 [History] Omeprazole [PriLOSEC] 40 mg PO DAILY 11/10/16 [History] Potassium Chloride [Klor-Con 10] 10 meq PO BID 11/11/16 [History] Gabapentin [Neurontin] 100 mg PO TID #90 capsule 11/27/16 [Rx] Albuterol Sulfate [Ventolin Hfa] 2 puff IH Q4H PRN 08/12/17 [History] Calcium Acetate [Phos-LO] 1,334 mg PO TID 08/12/17 [History] Cyclobenzaprine [Flexeril] 10 mg PO TID 08/12/17 [History] Docusate [Colace] 100 mg PO TID 08/12/17 [History] Doxepin HCl 50 mg PO HS 08/12/17 [History] Ergocalciferol (VITAMIN D2) [Vitamin D2] 50,000 unit PO DAILY 08/12/17 [History] Furosemide [Lasix] 20 mg PO BID 08/12/17 [History] Insulin ASPART [Novolog Flexpen] 32 unit SQ TIDAC 08/12/17 [History] Levothyroxine Sodium [Levoxyl] 125 mcg PO QAM 08/12/17 [History] Metoprolol XL (24 HR) Succ [Toprol Xl] 25 mg PO DAILY 08/12/17 [History] Warfarin [Coumadin] 5 mg PO DAILY 08/12/17 [History] hydrOXYzine HCl [Hydroxyzine HCl] 25 mg PO TID 08/12/17 [History] Insulin DETEMIR [Levemir] 10 unit SQ BID 30 Days #1 each 08/13/17 [Rx] Isosorbide MONOnitrate (24 HR) [Imdur] 120 mg PO QPM 30 Days #30 tab.er.24h 05/28 [Rx] Allergies/Adverse Reactions: 3 Allergy/AdvReac Type Severity Reaction Status Date / Time aspirin Allergy Hives Verified 08/12/17 08:48 cephalexin [From Keflex] Allergy Difficulty Verified 08/12/17 08:48 Breathing codeine Allergy Hypertensio Verified 08/12/17 08:48 n Cortisone Allergy See Verified 08/12/17 08:48 Comments hydrocortisone Allergy Hypertensio Verified 08/12/17 08:48 n ibuprofen Allergy Hives Verified 08/12/17 08:48 Iodinated Contrast- Oral and Allergy See Verified 08/12/17 08:48 IV Dye Comments [Iodinated Contrast Media - IV Dye] lidocaine [From Xylocaine] Allergy See Verified 08/12/17 08:48 Comments loratadine [From Claritin] Allergy Hives Verified 08/12/17 08:48 methylprednisolone Allergy Hypertensio Verified 08/12/17 08:48 [From Solu-Medrol] n Penicillins Allergy See Verified 08/12/17 08:48 Comments prednisone Allergy Hypertensio Verified 08/12/17 08:48 n Procaine [From Novocain] Allergy See Verified 08/12/17 08:48 Comments propoxyphene [From Darvon] Allergy See Verified 08/12/17 08:48 Comments pseudoephedrine Allergy Hives Verified 08/12/17 08:48 [From Sudafed] ropinirole [From Requip] Allergy See Verified 08/12/17 08:48 Comments tramadol AdvReac See Verified 01/07/17 18:11 Comments Certification: Further, I certify that my clinical findings support that this patient is homebound (i.e. absences from home require considerable and taxing effort and are for medical reasons or christianity services or infrequently or short duration when for other reasons) because: Homebound Reason: Patient requires assistance of a person or device to safely leave home, Leaving home requires considerable and taxing effort due to condition Attestation: My signature below is to certify that this patient is under my care and that I, or nurse practitioner, or a physician's orthodontist assistant working with me, has a face-to -face encounter with this patient.
[2017-08-13 15:10] VITALS: BP 146/67
[2017-08-13] MEDS ORDERED: Warfarin perPT PO PRN (18:00)
[2017-08-13] MEDS ORDERED: *HR* Warfarin 5 MG TABLET PO ONE (18:00)
== END 2017-08-13 16:22 | disposition home or self-care (01) ==
LOC: EMEROO 19:43 → 2ANU 19:43
PROVIDERS: ADMIT Internal Medicine Nephrology; ATTEND Internal Medicine Nephrology

== ENCOUNTER 2017-09-02 14:33 | Observation (INO) ==
--- NOTE | 2017-09-02 15:14 | Emergency Department Note ---
Disposition Clinical Impression: Chest pain Qualifiers: Chest pain type: precordial pain Qualified Code(s): R07.2 - Precordial pain Disposition: Admitted As Inpatient Condition: Good Instructions: Chest Pain (ED) Referrals: Mauro Dockery MD [Primary Care Provider] - Forms: ED Satisfaction Letter Time of Disposition: 18:04 Chest Pain HPI - General Chief Complaint: ED Chest Pain Stated Complaint: CHEST PAIN Time Seen by Provider: 09/02/17 14:59 Source: patient Limitations: no limitations - History of Present Illness HPI Narrative: This is a 62-year-old female who reports midsternal chest pain with bilateral radiation began almost 5 hours prior to arrival. She states the pain was present before she went to dialysis. This has not helped since she was at dialysis. She reports having dialysis for the last 7 weeks, and still has a dialysis catheter in her right chest. Pt complaint: chest pain Severity scale (1-10): 7 - Related Data Home Medications Medication Instructions Recorded Confirmed Meclizine [Antivert] 25 mg PO TID 09/12/14 08/12/17 Allopurinol [Zyloprim 100 MG] 100 mg PO DAILY 03/22/15 08/12/17 DiphenhydraMINE [Benadryl] 25 mg PO TID 03/22/15 08/12/17 Exenatide Microspheres [Bydureon 2 mg SQ WE 03/22/15 08/12/17 Pen] Lidocaine Patch [Lidoderm 5% patch] 1 - 3 patch TP DAILY 03/22/15 08/12/17 Nitroglycerin [Nitrostat] 0.4 mg SL Q5M PRN 03/22/15 08/12/17 Promethazine [Phenergan] 25 mg PO TID 03/22/15 08/12/17 clonazePAM [Klonopin] 1 mg PO HS 03/22/15 08/12/17 Albuterol Neb [AccuNeb] 1.25 mg IH QID 05/06/16 08/12/17 Nystatin POWDER [Nystop] 1 appl TP QID 05/06/16 08/12/17 Rosuvastatin [Crestor] 20 mg PO HS 05/06/16 08/12/17 Acetaminophen [Tylenol] 650 mg PO Q4-6H PRN 11/10/16 08/12/17 Omeprazole [PriLOSEC] 40 mg PO DAILY 11/10/16 08/12/17 Potassium Chloride [Klor-Con 10] 10 meq PO BID 11/11/16 08/12/17 Albuterol Sulfate [Ventolin Hfa] 2 puff IH Q4H PRN 08/12/17 08/12/17 Calcium Acetate [Phos-LO] 1,334 mg PO TID 08/12/17 08/12/17 Cyclobenzaprine [Flexeril] 10 mg PO TID 08/12/17 08/12/17 Docusate [Colace] 100 mg PO TID 08/12/17 08/12/17 Doxepin HCl 50 mg PO HS 08/12/17 08/12/17 Ergocalciferol (VITAMIN D2) 50,000 unit PO DAILY 08/12/17 08/12/17 [Vitamin D2] Furosemide [Lasix] 20 mg PO BID 08/12/17 08/12/17 Insulin ASPART [Novolog Flexpen] 32 unit SQ TIDAC 08/12/17 08/12/17 Levothyroxine Sodium [Levoxyl] 125 mcg PO QAM 08/12/17 08/12/17 Metoprolol XL (24 HR) Succ [Toprol 25 mg PO DAILY 08/12/17 08/12/17 Xl] Warfarin [Coumadin] 5 mg PO DAILY 08/12/17 08/12/17 hydrOXYzine HCl [Hydroxyzine HCl] 25 mg PO TID 08/12/17 08/12/17 Previous Rx's Medication Instructions Recorded Gabapentin [Neurontin] 100 mg PO TID #90 capsule 11/27/16 Insulin DETEMIR [Levemir] 10 unit SQ BID 30 Days #1 each 08/13/17 Isosorbide MONOnitrate (24 HR) 120 mg PO QPM 30 Days #30 08/13/17 [Imdur] tab.er.24h Allergies Allergy/AdvReac Type Severity Reaction Status Date / Time aspirin Allergy Hives Verified 08/12/17 08:48 cephalexin [From Keflex] Allergy Difficulty Verified 08/12/17 08:48 Breathing codeine Allergy Hypertensio Verified 08/12/17 08:48 n Cortisone Allergy See Verified 08/12/17 08:48 Comments hydrocortisone Allergy Hypertensio Verified 08/12/17 08:48 n ibuprofen Allergy Hives Verified 08/12/17 08:48 Iodinated Contrast- Oral and Allergy See Verified 08/12/17 08:48 IV Dye Comments [Iodinated Contrast Media - IV Dye] lidocaine [From Xylocaine] Allergy See Verified 08/12/17 08:48 Comments loratadine [From Claritin] Allergy Hives Verified 08/12/17 08:48 methylprednisolone Allergy Hypertensio Verified 08/12/17 08:48 [From Solu-Medrol] n Penicillins Allergy See Verified 08/12/17 08:48 Comments prednisone Allergy Hypertensio Verified 08/12/17 08:48 n Procaine [From Novocain] Allergy See Verified 08/12/17 08:48 Comments propoxyphene [From Darvon] Allergy See Verified 08/12/17 08:48 Comments pseudoephedrine Allergy Hives Verified 08/12/17 08:48 [From Sudafed] ropinirole [From Requip] Allergy See Verified 08/12/17 08:48 Comments tramadol AdvReac See Verified 01/07/17 18:11 Comments Constitutional: Denies: fever, chills, weakness, weight change Eyes: Denies: eye pain, eye discharge, vision change Cardiovascular: Reports: chest pain Respiratory: Denies: cough, dyspnea, wheezes, hemoptysis, stridor Gastrointestinal: Denies: abdominal pain, nausea, vomiting, diarrhea, constipation, hematemesis, melena, hematochezia Musculoskeletal: Denies: back pain, neck pain, arthralgia, myalgia Integumentary: Denies: rash, abrasion, lesions Neurological: Denies: headache, weakness, numbness, paresthesias, confusion, abnormal gait, vertigo Psychiatric: Denies: anxiety, depression, suicidal thoughts, homicidal thoughts , auditory hallucinations, visual hallucinations Endocrine: Denies: fatigue Hematological/Lymphatic: Denies: easy bleeding, easy bruising Allergic/Immunologic: Denies: facial swelling, urticaria Chest Pain PMH - Past Medical History Medical history: Reports: arthritis, CHF, COPD, DVT, diabetes, GERD, hyperlipidemia, hypertension, migraine, osteoporosis, renal disease, thyroid disease, other Surgical history: Reports: appendectomy, hysterectomy, orthopedic, other, other , IVC filter Psychiatric history: Reports: anxiety, depression DIRECTOR OF MATERNITY SERVICES history: Reports: bilateral 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 - Social History Smoking Status: Former smoker Alcohol use: Reports: none Drug use: Reports: none Physical Exam - General Limitations: no limitations General appearance: alert, in no apparent distress - Head Head exam: atraumatic, normocephalic, normal inspection - Eye Eye exam: Present: normal appearance, PERRL, EOMI - ENT ENT exam: normal exam, normal oropharynx, mucous membranes moist - Neck Neck exam: Present: normal inspection, full ROM, trachea midline - Chest Chest inspection: Present: normal inspection, symmetric chest wall rise - Respiratory Respiratory exam: Present: normal lung sounds bilaterally - Cardiovascular Cardiovascular exam: Present: regular rate, normal rhythm, normal heart sounds - Abdominal Exam Abdominal exam: Present: soft, Non-Tender. Absent: tenderness, distention, guarding, rebound, rigidity - Neurological Exam Neurological exam: Present: alert, oriented X3 - Psychiatric Psychiatric exam: Present: normal affect, normal mood - Skin Skin exam: Present: warm, dry, intact, normal color Course Course Narrative: This is a 62-year-old female who has had chest pain for 4 hours with no relief. She has significant coronary artery disease risk factors, most significant a long-standing diabetes mellitus 3. Vital Signs Temperature 97.7 F 09/02/17 14:34 Pulse Rate 87 09/02/17 14:34 Respiratory Rate 20 09/02/17 14:34 Blood Pressure 239/120 09/02/17 14:34 O2 Sat by Pulse Oximetry 98 09/02/17 14:34 Temperature 97.7 F 09/02/17 14:34 Pulse Rate 75 09/02/17 15:56 Respiratory Rate 16 09/02/17 15:56 Blood Pressure 150/73 09/02/17 15:56 O2 Sat by Pulse Oximetry 100 09/02/17 15:56 Oxygen Delivery Oxygen Delivery Nasal Cannula Chest Pain - MDM Narrative Medical decision making narrative: This is a 62-year-old obese diabetic female with chest pain. Pain is almost resolved at this time. I discussed her case with the on-call hospitalist, and he accepted her for admission for the rest of the chest pain rule out. I believe this is reasonable and that she probably needs a stress test given her risk for acute coronary syndrome. - Lab Data Lab results reviewed: Yes I reviewed the patient's lab results. Lab results narrative: CBC was unremarkable BMP shows slight hypokalemia at 3.2 and elevated creatinine at 2.01 2 troponins were negative Result diagrams: 09/02/17 15:24 09/02/17 15:24 Lab Results 09/02/17 09/02/17 09/02/17 Range/Units 15:24 15:24 17:14 WBC 5.4 (4.3-11.1) K/mcL RBC 3.67 L (3.82-4.97) M/mcL Hgb 10.8 L (11.5-15.4) g/dL Hct 35.6 (35.3-44.9) % MCV 97.0 (83.0-100.0) fL MCH 29.4 (28.0-33.3) pg MCHC 30.3 L (31.6-35.5) g/dL RDW 17.1 H (11.5-14.5) % Plt Count 231 (140-400) K/mcL MPV 10.0 (9.4-12.4) fL Immature Gran % 0.4 (0-4) % Seg Neutrophils % 62.7 % Lymphocytes % 24.8 % Monocytes % 8.9 % Eosinophils % 2.6 % Basophils % 0.6 % Neutrophils # 3.4 (1.6-8.9) K/mcL Lymphocytes # 1.3 (0.6-4.6) K/mcL Monocytes # 0.5 (0.0-1.3) K/mcL Eosinophils # 0.1 (0.0-0.6) K/mcL Basophils # 0.0 (0.0-0.2) K/mcL Sodium 134 L (136-145) mEq/L Potassium 3.2 L (3.5-5.1) mEq/L Chloride 105 (98-107) mEq/L Carbon Dioxide 25 (23-29) mEq/L BUN 14 (8-23) mg/dL Creatinine 2.01 H (0.60-1.20) mg/dL Est GFR ( Amer) 30 L (> 60) Est GFR (Non-Af Amer) 25 L (> 60) BUN/Creatinine Ratio 7 (6-26) Glucose 211 H (70-105) mg/dL Calculated Osmolality 285 (280-300) Calcium 8.7 (8.6-10.3) mg/dL Troponin I < 0.03 < 0.03 (< 0.04) ng/mL - EKG Data EKG attestation: Yes I reviewed and interpreted this EKG. EKG results narrative: EKG shows sinus rhythm, 82 bpm, normal intervals, likely LVH given R-wave height in aVL, normal axis, no ST or T-wave abnormalities, large Q-wave in lead 3, T-wave inversion in lead 3
[2017-09-02 16:01] LABS: Basophils % 0.6 %; Eosinophils # 0.1 K/mcL (0.0-0.6); Eosinophils % 2.6 %; Hematocrit 35.6 % (35.3-44.9); Hemoglobin 10.8 g/dL (11.5-15.4); Immature Granulocytes % 0.4 % (0-4); Lymphocytes # 1.3 K/mcL (0.6-4.6); Lymphocytes % 24.8 %; Mean Corpuscular HGB Conc 30.3 g/dL (31.6-35.5); Mean Corpuscular Hemoglobin 29.4 pg (28.0-33.3); Monocytes # 0.5 K/mcL (0.0-1.3); Monocytes % 8.9 %; Neutrophils # 3.4 K/mcL (1.6-8.9); Platelet Count 231 K/mcL (140-400); Red Blood Count 3.67 M/mcL (3.82-4.97); Red Cell Distribution Width 17.1 % (11.5-14.5); Segmented Neutrophils % 62.7 %
[2017-09-02 16:17] LABS: BUN/Creatinine Ratio 7 (6-26); Blood Urea Nitrogen 14 mg/dL (8-23); Calcium 8.7 mg/dL (8.6-10.3); Carbon Dioxide 25 mEq/L (23-29); Chloride 105 mEq/L (98-107); Glucose 211 mg/dL (70-105); Osmolality,Calculated 285 (280-300); Potassium 3.2 mEq/L (3.5-5.1); Sodium 134 mEq/L (136-145); Troponin I < 0.03 ng/mL (< 0.04); eGFR For Non-African Americans 25 (> 60)
[2017-09-02] MEDS ORDERED: Potassium Chloride Elixir 20 MEQ/15 ML UDC PO ONE (17:16)
[2017-09-02] MEDS ORDERED: *HR* LORazepam 1 MG TABLET PO ONE (17:16)
[2017-09-02] MEDS ORDERED: Naloxone 0.4 MG/ML INJ IVP PRN (19:51)
[2017-09-02] MEDS ORDERED: Dextrose Gel 15 GM/37.5 ML TUBE PO PRN ×2 (19:58)
[2017-09-02] MEDS ORDERED: *HR* Dextrose 50 % in Water (Syg) 50 ML SYRINGE IVP PRN (19:58)
[2017-09-02] MEDS ORDERED: D5% in Water 1,000 ML IVC PRN (19:58)
[2017-09-02] MEDS ORDERED: Nitroglycerin 0.4 MG TAB.SUBL SL PRN (19:59)
--- NOTE | 2017-09-02 20:39 | Internal Med History&Physical ---
Date of Encounter: 09/02/17 Time of Encounter: 18:40 Internal Medicine - H&P: HPI Chief complaint: chest pain Admitted From: Emergency Dept Plans for Post Hospital Care: Home History of present illness: Ms. Mars is a 62 year old female who presents with complaints of chest pain which started before her dialysis today and then worsened during dialysis. She states her pain was much worse during dialysis and that they had to stop her dialysis prematurely. She was transferred to the ER for evaluation and admission. Workup was initiated in the ER and patient was admitted to hospitalist service. Upon my assessment of the patient in the ER, she is currently chest pain-free, but she reiterates the above history. She denies any fevers, cough, or congestion. She was hospitalized recently with chest pain, but she refused stress test at that time due to untoward side effects from prior episodes of stress testing. Given that she has recurrent chest pain and several cardiac risk factors, she is now being admitted again. I discussed with her and her at length the need for further workup and likely left heart catheterization. Patient is agreeable to left heart catheterization but refuses any kind of cardiac stress testing due to prior bad experiences. 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 She denies any prior PE. She does have a [employer] filter in place. Unfortunately, the ER did not check coagulation studies. I am ordering stat PT/ INR and daily PT/INR. If she proceeds with left heart catheterization, she will likely need to have her Coumadin withheld temporarily. Past Med Surg Social Fam HX - Past Medical History Attestation: Yes The following information was validated with the patient. Source: patient, old records reviewed, obtained from family Medical history: arthritis, CHF, COPD, DVT, diabetes, GERD, hyperlipidemia, hypertension, migraine, osteoporosis, renal disease, thyroid disease Additional medical history: dialysis 3 days a week Psychiatric history: anxiety, depression - Past Surgical History Surgical History: appendectomy, hysterectomy, orthopedic, other, IVC filter Additional surgical history: carpal tunnel surgery left hand - Social History Smoking Status: Former smoker Smokeless Tobacco Status: No Alcohol use: none Drug use: none Current living situation: Home, With Family Activity Level: Independent ambulation Recent Out of Country Travel Within the Last 8 Weeks: No - Family History Father Living Status: Hx Family Cardiac Disorders: Yes Hx Family GI Disorders: No Hx Family Neurologic Disorders: Yes Mother Living Status: Hx Family Cardiac Disorders: Yes Hx Family Cancer: Yes Hx Family GI Disorders: No Hx Family Endocrine Disorder: Yes (DIABETES MELLITUS.) Internal Medicine - H&P: Meds Meclizine [Antivert] 25 mg PO TID 09/12/14 [History] Allopurinol [Zyloprim 100 MG] 100 mg PO DAILY 03/22/15 [History] DiphenhydraMINE [Benadryl] 25 mg PO TID 03/22/15 [History] Exenatide Microspheres [Bydureon Pen] 2 mg SQ WE 03/22/15 [History] Lidocaine Patch [Lidoderm 5% patch] 1 - 3 patch TP DAILY 03/22/15 [History] Nitroglycerin [Nitrostat] 0.4 mg SL Q5M PRN 03/22/15 [History] Promethazine [Phenergan] 25 mg PO TID 03/22/15 [History] clonazePAM [Klonopin] 1 mg PO HS 03/22/15 [History] Albuterol Neb [AccuNeb] 1.25 mg IH QID 05/06/16 [History] Nystatin POWDER [Nystop] 1 appl TP QID 05/06/16 [History] Rosuvastatin [Crestor] 20 mg PO HS 05/06/16 [History] Acetaminophen [Tylenol] 650 mg PO Q4-6H PRN 11/10/16 [History] Omeprazole [PriLOSEC] 40 mg PO DAILY 11/10/16 [History] Potassium Chloride [Klor-Con 10] 10 meq PO BID 11/11/16 [History] Gabapentin [Neurontin] 100 mg PO TID #90 capsule 11/27/16 [Rx] Albuterol Sulfate [Ventolin Hfa] 2 puff IH Q4H PRN 08/12/17 [History] Calcium Acetate [Phos-LO] 1,334 mg PO TID 08/12/17 [History] Cyclobenzaprine [Flexeril] 10 mg PO TID 08/12/17 [History] Docusate [Colace] 100 mg PO TID 08/12/17 [History] Doxepin HCl 50 mg PO HS 08/12/17 [History] Ergocalciferol (VITAMIN D2) [Vitamin D2] 50,000 unit PO DAILY 08/12/17 [History] Furosemide [Lasix] 20 mg PO BID 08/12/17 [History] Insulin ASPART [Novolog Flexpen] 32 unit SQ TIDAC 08/12/17 [History] Levothyroxine Sodium [Levoxyl] 125 mcg PO QAM 08/12/17 [History] Metoprolol XL (24 HR) Succ [Toprol Xl] 25 mg PO DAILY 08/12/17 [History] Warfarin [Coumadin] 5 mg PO DAILY 08/12/17 [History] hydrOXYzine HCl [Hydroxyzine HCl] 25 mg PO TID 08/12/17 [History] Insulin DETEMIR [Levemir] 10 unit SQ BID 30 Days #1 each 08/13/17 [Rx] Isosorbide MONOnitrate (24 HR) [Imdur] 120 mg PO QPM 30 Days #30 tab.er.24h 05/28 [Rx] 3 Allergy/AdvReac Type Severity Reaction Status Date / Time aspirin Allergy Hives Verified 08/12/17 08:48 cephalexin [From Keflex] Allergy Difficulty Verified 08/12/17 08:48 Breathing codeine Allergy Hypertensio Verified 08/12/17 08:48 n Cortisone Allergy See Verified 08/12/17 08:48 Comments hydrocortisone Allergy Hypertensio Verified 08/12/17 08:48 n ibuprofen Allergy Hives Verified 08/12/17 08:48 Iodinated Contrast- Oral and Allergy See Verified 08/12/17 08:48 IV Dye Comments [Iodinated Contrast Media - IV Dye] lidocaine [From Xylocaine] Allergy See Verified 08/12/17 08:48 Comments loratadine [From Claritin] Allergy Hives Verified 08/12/17 08:48 methylprednisolone Allergy Hypertensio Verified 08/12/17 08:48 [From Solu-Medrol] n Penicillins Allergy See Verified 08/12/17 08:48 Comments prednisone Allergy Hypertensio Verified 08/12/17 08:48 n Procaine [From Novocain] Allergy See Verified 08/12/17 08:48 Comments propoxyphene [From Darvon] Allergy See Verified 08/12/17 08:48 Comments pseudoephedrine Allergy Hives Verified 08/12/17 08:48 [From Sudafed] ropinirole [From Requip] Allergy See Verified 08/12/17 08:48 Comments tramadol AdvReac See Verified 01/07/17 18:11 Comments - Constitutional Constitutional: no chills, no fever(s), no night sweats - EENT Eyes: no blurry vision, no change in vision Ears: no ear pain, no tinnitus Nose, mouth and throat: no nasal congestion, no sore throat - Cardiovascular Cardiovascular ROS IM: chest pain, diaphoresis, dyspnea, dyspnea on exertion, no edema, no orthopnea, no syncope - Respiratory Respiratory: no cough, no hemoptysis, no chest congestion, no excessive phlegm production, no change in phlegm color - Gastrointestinal Gastrointestinal: no abdominal pain, no diarrhea, no hematemesis, no hematochezia, no melena, no vomiting - Genitourinary Genitourinary: no dysuria, no flank pain, no hematuria - Musculoskeletal Musculoskeletal ROS IM: no arthralgias, no back pain - Integumentary Integumentary IM: no rash, no jaundice - Neurological Neurological ROS: no dizziness, no focal weakness, no frequent falls, no headache(s) - Psychiatric Psychiatric: no anxiety, no depression - Endocrine Endocrine IM: no polydipsia, no polyuria - Allergic/Immunologic Allergic/Immunologic: no wheezing, no GI upset with certain foods - Constitutional Vitals: Temp Pulse Resp BP Pulse Ox 97.7 F 82 18 133/62 94 09/02/17 14:34 09/02/17 19:37 09/02/17 20:28 09/02/17 20:28 09/02/17 19:37 General appearance: Present: cooperative, A&O X 3, pleasant, no acute distress, answers questions appropriately - Head Head exam: Present: atraumatic, normal inspection - Eye Eye exam: Present: EOMI, PERRL. Absent: scleral icterus Pupils: Present: normal accommodation - ENT ENT exam: Present: mucous membranes dry, normal exam - Neck Neck exam general surgery: Present: full ROM, supple. Absent: tenderness, nuchal rigidity, thyromegaly - Respiratory Respiratory exam: Present: CTAB. Absent: chest wall tenderness, rales, respiratory distress, rhonchi, wheezes - Cardiovascular Cardiovascular exam: Present: distant heart sounds, RRR, +S1, +S2. Absent: diastolic murmur, systolic murmur - GI/Abdominal GI/Abdominal exam: Present: normal bowel sounds, soft. Absent: guarding, hepatomegaly, mass, rebound, splenomegaly, tenderness - Extremities Exam Extremities exam: Present: full ROM, normal capillary refill, warm, radial pulses palpable and symmetrical. Absent: calf tenderness, pedal edema, tenderness - Back Exam Back exam: Absent: CVA tenderness (L), CVA tenderness (R) - Neurological Exam Neurological exam: Present: alert, CN II-XII intact, oriented X3, no focal deficits - Psychiatric Psychiatric exam: Present: normal affect, normal mood - Skin Skin exam: Present: dry, intact, warm. Absent: rash Internal Med - H&P Results - Labs CBC & Chem 7: 09/02/17 15:24 09/02/17 15:24 - EKG Data -: EKG Interpreted by Myself - EKG Data Prior EKG available for review: no EKG comments: 09/02/17 20:42 NSR; LVH; no acute ST-T changes - Diagnostic Studies Chest x-ray Status: image reviewed by me (negative) - Assessment and plan (1) Chest pain Current Visit: Yes Status: Acute Assessment and plan: 1. Will trend troponins and EKG's. 2. Consult cardiology for possible LHC as she refuses and can not tolerate stress testing. 3. Check PT/INR given history of DVT. Patient has IVF filter in place. 4. Will need to hold Coumadin prior to LHC and likely bridge with heparin drip if cardiology agrees with LHC. Qualifiers: Chest pain type: precordial pain Qualified Code(s): R07.2 - Precordial pain (2) ESRD (end stage renal disease) on dialysis Current Visit: Yes Status: Chronic Assessment and plan: 1. Consult nephrology for dialysis needs. (3) IDDM (insulin dependent diabetes mellitus) Current Visit: Yes Status: Chronic Assessment and plan: 1. Continue basal insulin and add SSI. 2. Monitor and adjust dosing as needed. (4) DVT prophylaxis Current Visit: Yes Status: Acute Assessment and plan: 1. On Coumadin per home dosing. 2. Awaiting PT/INR results and then daily monitoring. 3. May need heparin bridge while off Coumadin for LHC.
[2017-09-02 20:57] LABS: Estimated Average Glucose 154 mg/dl
[2017-09-02 21:10] LABS: INR 1.1; Prothrombin Time 12.6 Seconds (9.4-12.1)
[2017-09-02] MEDS: Albuterol Neb 1.25 MG/3 ML VIAL IH SCH (21:38)
[2017-09-02] MEDS: Insulin DETEMIR 100 UNIT/ML X5UNITS SQ SCH (22:15)
[2017-09-02] MEDS: Gabapentin 100 MG CAPSULE PO SCH (22:15)
[2017-09-02] MEDS: clonazePAM 1 MG TABLET PO SCH (22:15)
[2017-09-02] MEDS: Calcium Acetate 667 MG CAPSULE PO SCH (22:16)
[2017-09-02] MEDS: Insulin LISPRO 300 UNITS/3 ML VIAL SQ SCH (22:54)
[2017-09-03] MEDS: Albuterol Neb 1.25 MG/3 ML VIAL IH SCH ×5 (00:27→22:03)
[2017-09-03 06:18] LABS: Basophils % 0.4 %; Eosinophils # 0.2 K/mcL (0.0-0.6); Eosinophils % 3.2 %; Hematocrit 32.6 % (35.3-44.9); Hemoglobin 9.8 g/dL (11.5-15.4); Immature Granulocytes % 0.2 % (0-4); Lymphocytes # 1.5 K/mcL (0.6-4.6); Lymphocytes % 31.9 %; Mean Corpuscular HGB Conc 30.1 g/dL (31.6-35.5); Mean Corpuscular Hemoglobin 29.5 pg (28.0-33.3); Mean Corpuscular Volume 98.2 fL (83.0-100.0); Mean Platelet Volume 9.9 fL (9.4-12.4); Monocytes # 0.5 K/mcL (0.0-1.3); Neutrophils # 2.6 K/mcL (1.6-8.9); Platelet Count 189 K/mcL (140-400); Red Blood Count 3.32 M/mcL (3.82-4.97); Segmented Neutrophils % 54.3 %
[2017-09-03 06:24] LABS: INR 1.2; Prothrombin Time 13.2 Seconds (9.4-12.1)
[2017-09-03 06:36] LABS: Bilirubin,Total 0.4 mg/dL (0.3-1.0); Calcium 8.7 mg/dL (8.6-10.3); Chol/HDL Ratio 5.3 (0-4.9); Globulin 3.1 g/dL (2.4-3.5); Magnesium 1.5 mg/dL (1.6-2.6); Potassium 3.5 mEq/L (3.5-5.1); Total Protein 6.1 g/dL (6.4-8.9)
[2017-09-03] MEDS: Gabapentin 100 MG CAPSULE PO SCH ×3 (08:14→20:03)
[2017-09-03] MEDS: Metoprolol XL (24 HR) Succ 25 MG TAB.ER.24H PO SCH (08:15)
[2017-09-03] MEDS: *HR* Warfarin 5 MG TABLET PO SCH (08:15)
[2017-09-03] MEDS: Calcium Acetate 667 MG CAPSULE PO SCH ×3 (08:15→20:02)
[2017-09-03] MEDS: Acetaminophen 325 MG TABLET PO PRN (08:15)
[2017-09-03] MEDS: Insulin LISPRO 300 UNITS/3 ML VIAL SQ SCH ×4 (08:16→20:52)
[2017-09-03] MEDS: Insulin DETEMIR 100 UNIT/ML X5UNITS SQ SCH ×2 (08:24→20:52)
[2017-09-03] MEDS: Cholecalciferol (D-3) 1,000 UNIT TABLET PO SCH (11:02)
--- NOTE | 2017-09-03 11:18 | Cardiology Consult Note ---
Date of Encounter: 09/03/17 Time of Encounter: 09:45 Assessment and Plan (1) Atypical chest pain Current Visit: Yes Status: Acute Per cardiology: -Reports chest pain at rest, reproducable with palpation. -BP hypertensive 239/120 on admission. -Denies exertional chest pain. -Troponins negative x4. -ECG with no acute ishchemic changes noted. -TTE 11/2016 with LVEF preserved 60-65%, no segmental wall motion abnormalities noted. -OF note, patient refuses stress test, states it drops her BP and has refused historically since 2015 (OP office note reviewed from ). -Allergy noted to ASA. -Atypical chest pain in the setting of HTN. -Of note, allergic to asa states had hypotension and difficulty breathing with ASA. Discussed with patient need for ASA desensitization prior to ischemic evaluation, patient would like to discuss with prior to agreeing. -Will check limited echo, if LVEF remains preserved, can consider ischemic evaluation in outpatient setting. (2) Essential hypertension Current Visit: Yes Status: Acute Per cardiology: -BP extremely hypertensive on admission, noted to be 239/120. -Currently 120-160 systolic. -On BB, toprol 25mg daily. Not on nani/arb due to renal function. -Will add norvasc 2.5mg daily. -Continue to monitor BP. Discussion w patient/family: The assessment and plan as outlined above was discussed with the patient who expressed understanding and agreement. All questions were answered. Thank you for involving us in the care of your patient. Please call with any questions. Discussed and reviewed with . History of Present Illness Consult date: 09/02/17 Requesting physician: Vicente Rachel Consult reason: chest pain Chief complaint: chest pain History of present illness: Ms. Mars is a 62 year old female with a relevant past medical history of HTN , HLD, DM, GERD, fatty liver, hypothyroidism, COPD, previous DVTs, obesity, CKD on HD who presented to [facility] with complaints of chest pain. Patient states pain started yesterday morning at home when her blood sugar was low and her blood pressure was high. Patient then states she went ot dialysis and states her BP alarm kept going off due to severe hypertension. Patient states she noticed that as her BP increased, her chest pain worsened. Patient states BP at dialysis was 230s systolic. Patient denies exertional symptoms. Patient denies worsening shortness of breath. Past Med Surg Social Fam HX - Past Medical History Attestation: Yes The following information was validated with the patient. Source: patient, old records reviewed Medical history: arthritis, CHF, COPD, DVT, diabetes, GERD, hyperlipidemia, hypertension, migraine, osteoporosis, renal disease, thyroid disease Additional medical history: dialysis 3 days a week Psychiatric history: anxiety, depression - Past Surgical History Surgical History: appendectomy, hysterectomy, orthopedic, other, IVC filter Additional surgical history: carpal tunnel surgery left hand - Social History Smoking Status: Former smoker Smokeless Tobacco Status: No Alcohol use: none Drug use: none - Family History Father Living Status: Hx Family Cardiac Disorders: Yes Hx Family GI Disorders: No Hx Family Neurologic Disorders: Yes Mother Living Status: Hx Family Cardiac Disorders: Yes Hx Family Cancer: Yes Hx Family GI Disorders: No Hx Family Endocrine Disorder: Yes (DIABETES MELLITUS.) Medications and Allergies Meclizine [Antivert] 25 mg PO TID 09/12/14 [History] Allopurinol [Zyloprim 100 MG] 100 mg PO DAILY 03/22/15 [History] DiphenhydraMINE [Benadryl] 25 mg PO TID 03/22/15 [History] Exenatide Microspheres [Bydureon Pen] 2 mg SQ WE 03/22/15 [History] Lidocaine Patch [Lidoderm 5% patch] 1 - 3 patch TP DAILY 03/22/15 [History] Nitroglycerin [Nitrostat] 0.4 mg SL Q5M PRN 03/22/15 [History] Promethazine [Phenergan] 25 mg PO TID 03/22/15 [History] clonazePAM [Klonopin] 1 mg PO HS 03/22/15 [History] Albuterol Neb [AccuNeb] 1.25 mg IH QID 05/06/16 [History] Nystatin POWDER [Nystop] 1 appl TP QID 05/06/16 [History] Rosuvastatin [Crestor] 20 mg PO HS 05/06/16 [History] Acetaminophen [Tylenol] 650 mg PO Q4-6H PRN 11/10/16 [History] Omeprazole [PriLOSEC] 40 mg PO DAILY 11/10/16 [History] Potassium Chloride [Klor-Con 10] 10 meq PO BID 11/11/16 [History] Gabapentin [Neurontin] 100 mg PO TID #90 capsule 11/27/16 [Rx] Albuterol Sulfate [Ventolin Hfa] 2 puff IH Q4H PRN 08/12/17 [History] Calcium Acetate [Phos-LO] 1,334 mg PO TID 08/12/17 [History] Cyclobenzaprine [Flexeril] 10 mg PO TID 08/12/17 [History] Docusate [Colace] 100 mg PO TID 08/12/17 [History] Doxepin HCl 50 mg PO HS 08/12/17 [History] Ergocalciferol (VITAMIN D2) [Vitamin D2] 50,000 unit PO DAILY 08/12/17 [History] Furosemide [Lasix] 20 mg PO BID 08/12/17 [History] Insulin ASPART [Novolog Flexpen] 32 unit SQ TIDAC 08/12/17 [History] Levothyroxine Sodium [Levoxyl] 125 mcg PO QAM 08/12/17 [History] Metoprolol XL (24 HR) Succ [Toprol Xl] 25 mg PO DAILY 08/12/17 [History] Warfarin [Coumadin] 5 mg PO DAILY 08/12/17 [History] hydrOXYzine HCl [Hydroxyzine HCl] 25 mg PO TID 08/12/17 [History] Insulin DETEMIR [Levemir] 10 unit SQ BID 30 Days #1 each 08/13/17 [Rx] Isosorbide MONOnitrate (24 HR) [Imdur] 120 mg PO QPM 30 Days #30 tab.er.24h 05/28 [Rx] 3 Allergy/AdvReac Type Severity Reaction Status Date / Time aspirin Allergy Hives Verified 08/12/17 08:48 cephalexin [From Keflex] Allergy Difficulty Verified 08/12/17 08:48 Breathing codeine Allergy Hypertensio Verified 08/12/17 08:48 n Cortisone Allergy See Verified 08/12/17 08:48 Comments hydrocortisone Allergy Hypertensio Verified 08/12/17 08:48 n ibuprofen Allergy Hives Verified 08/12/17 08:48 Iodinated Contrast- Oral and Allergy See Verified 08/12/17 08:48 IV Dye Comments [Iodinated Contrast Media - IV Dye] lidocaine [From Xylocaine] Allergy See Verified 08/12/17 08:48 Comments loratadine [From Claritin] Allergy Hives Verified 08/12/17 08:48 methylprednisolone Allergy Hypertensio Verified 08/12/17 08:48 [From Solu-Medrol] n Penicillins Allergy See Verified 08/12/17 08:48 Comments prednisone Allergy Hypertensio Verified 08/12/17 08:48 n Procaine [From Novocain] Allergy See Verified 08/12/17 08:48 Comments propoxyphene [From Darvon] Allergy See Verified 08/12/17 08:48 Comments pseudoephedrine Allergy Hives Verified 08/12/17 08:48 [From Sudafed] ropinirole [From Requip] Allergy See Verified 08/12/17 08:48 Comments tramadol AdvReac See Verified 01/07/17 18:11 Comments All Systems Review: The remainder of the systems were reviewed and are negative - Cardiovascular Cardiovascular: as per HPI, chest pain at rest Physical Examination Vital Signs, Last 4 Hours Temp Pulse Resp BP Pulse Ox 09/03/17 10:56 17 99 09/03/17 07:37 98.6 F 77 17 120/71 99 General: Conversant, No Apparent Distress HEENT: Atraumatic, Normocephaly, Mucus Membranes Moist Neck: No JVD, Normal carotid pulses Cardiac: Reg Rate and Rhythm, Normal S1 and S2, No Murmur Lungs: Normal Breath Sounds, No Wheeze, Rales, Rhonchi Neuro: Alert and responsive, No focal deficits noted Abdomen: Soft, Non-Tender Skin: No rashes noted on visualized skin Musculoskeletal: Other (Chest pain reproduceable with palpation. ) Extremities: No Clubbing, No Cyanosis, No Edema, Normal Pulses Results 09/03/17 05:34 09/03/17 05:34 Lab Results Impressions Chest X-Ray 09/02/17 15:11 IMPRESSION: No acute abnormality detected. D/ / Harinder Card MD / Harinder Card MD Interpreting Provider: Harinder Card MD Active Medications Acetaminophen (Tylenol) 650 mg PO Q6HR PRN PRN Reason: Mild Pain/Fever Stop: 03/04/18 19:52 Last Admin: 09/03/17 08:15 Dose: 650 mg Albuterol Sulfate (Accuneb) 1.25 mg IH QIDR [facility] Stop: 03/04/18 21:01 Last Admin: 09/03/17 10:54 Dose: 1.25 mg Albuterol Sulfate (Albuterol Inhaler) 2 puff IH Q4H PRN PRN Reason: Shortness Of Breath Stop: 03/04/18 20:00 Allopurinol (Zyloprim) 100 mg PO DAILY [facility] Stop: 03/05/18 09:01 Last Admin: 09/03/17 08:15 Dose: 100 mg Calcium Acetate (Phos-Lo) 1,334 mg PO TID [facility] Stop: 03/04/18 21:01 Last Admin: 09/03/17 08:15 Dose: 1,334 mg Clonazepam (Klonopin) 1 mg PO [facility] Stop: 03/04/18 21:01 Last Admin: 09/02/17 22:15 Dose: 1 mg Dextrose/Water (Dextrose 50% (Syg)) 25 ml IVP AD PRN PRN Reason: Hypoglycemia Stop: 03/04/18 19:59 Diphenhydramine HCl (Benadryl) 25 mg PO TID [facility] Stop: 03/04/18 21:01 Last Admin: 09/03/17 08:15 Dose: 25 mg Docusate Sodium (Colace) 100 mg PO TID [facility] PRN Reason: Protocol Stop: 03/04/18 21:01 Last Admin: 09/03/17 08:14 Dose: 100 mg Doxepin HCl (Sinequan) 50 mg PO [facility] Stop: 03/04/18 21:01 Last Admin: 09/02/17 22:16 Dose: 50 mg Gabapentin (Neurontin) 100 mg PO TID [facility] Stop: 03/04/18 21:01 Last Admin: 09/03/17 08:14 Dose: 100 mg Glucagon (Glucagen) 1 mg IM ONCE PRN PRN Reason: Hypoglycemia Stop: 03/04/18 19:59 Glucose (Gluctose) 15 gm PO ONCE PRN PRN Reason: Hypoglycemia Stop: 03/04/18 19:59 Glucose (Gluctose) 30 gm PO ONCE PRN PRN Reason: Hypoglycemia Stop: 03/04/18 19:59 Dextrose (Dextrose 5%) 1,000 mls @ 100 mls/hr IVC .Q10H PRN PRN Reason: HYPOGLYCEMIA Stop: 03/04/18 19:59 Insulin Detemir (Levemir) 10 unit SQ BID [facility] Stop: 03/04/18 21:01 Last Admin: 09/03/17 08:24 Dose: 10 unit Insulin Human Lispro (Humalog) 0 units SQ HS [facility] PRN Reason: Protocol Stop: 03/04/18 21:01 Last Admin: 09/02/17 22:54 Dose: Not Given Insulin Human Lispro (Humalog) 0 units SQ TIDAC [facility] PRN Reason: Protocol Stop: 03/05/18 07:31 Last Admin: 09/03/17 08:16 Dose: 4 units Isosorbide Mononitrate (Imdur) 120 mg PO QPM [facility] Stop: 03/05/18 18:01 Levothyroxine Sodium (Synthroid) 125 mcg PO QAM [facility] Stop: 03/05/18 09:01 Last Admin: 09/03/17 08:15 Dose: 125 mcg Lidocaine HCl (Lidoderm 5% Patch) 1 each TP DAILY [facility] Stop: 03/05/18 09:01 Last Admin: 09/03/17 08:17 Dose: 1 each Metoprolol Succinate (Toprol Xl) 25 mg PO DAILY [facility] Stop: 03/05/18 09:01 Last Admin: 09/03/17 08:15 Dose: 25 mg Naloxone HCl (Narcan) 0.4 mg IVP Q2MIN PRN PRN Reason: SEE COMMENTS Stop: 03/04/18 19:52 Nitroglycerin (Nitroglycerin) 0.4 mg SL Q5M PRN PRN Reason: Chest Pain Stop: 03/04/18 20:00 Omeprazole (Prilosec) 40 mg PO DAILY [facility] Stop: 03/05/18 09:01 Last Admin: 09/03/17 08:14 Dose: 40 mg Rosuvastatin Calcium (Crestor) 20 mg PO HS [facility] Stop: 03/04/18 21:01 Last Admin: 09/02/17 22:15 Dose: 20 mg Vitamin D (Vitamin D) 1,000 unit PO DAILY [facility] Stop: 03/05/18 09:01 Last Admin: 09/03/17 11:02 Dose: 1,000 unit Warfarin Sodium (Coumadin) 5 mg PO DAILY [facility] Stop: 03/05/18 09:01 Last Admin: 09/03/17 08:15 Dose: 5 mg Laboratory Tests 09/02/17 09/02/17 09/02/17 15:24 17:14 23:08 Hgb INR Creatinine Troponin I < 0.03 < 0.03 0.03 09/03/17 09/03/17 09/03/17 05:34 05:34 05:34 Hgb 9.8 L INR 1.2 Creatinine 2.88 H Troponin I 09/03/17 05:34 Hgb INR Creatinine Troponin I 0.03 - Imaging and Cardiology Chest Xray: report reviewed Echo: pending, report reviewed - EKG Interpretation EKG results cardiology: personally reviewed (ECG with SR, HR 82.), other ( Telemetry reviewed with average HR previous 12 hours noted to be 80, SR. PVCs and PACs.) Consult Discharge Plan - Plan Referrals: Mauro Dockery MD [Primary Care Provider] - 09/05/17 2:15 pm
--- NOTE | 2017-09-03 13:14 | Nephrology Consult Note ---
<PaulinaSherlyn ramires Tyree - Last Filed: 09/03/17 13:19> Date of Encounter: 09/03/17 Time of Encounter: 13:14 Assessment and Plan (1) ESRD (end stage renal disease) on dialysis Status: Chronic Current regimen is TTS at [place]. We will plan to order HD for tomorrow. Avoid nephrotoxins and renal dose all medications. Will order additional HD or UF as needed. Continue renal vitamins and renal diet. (2) Essential hypertension Status: Acute BP stable. Current BP 154/79. (3) Atypical chest pain Status: Acute Per cardiology. History of Present Illness - Reason for Consult Consult date: 09/03/17 end stage renal disease - Chief Complaint CP - History of Present Illness Ms. Mars is a 62 year old female with a relevant past medical history of HTN , HLD, DM, GERD, fatty liver, hypothyroidism, COPD, previous DVTs, obesity, ESRD on HD, she is followed by Dr. Del Castillo. She presented to the ED with complaints of chest pain. She was at dialysis at [facility]. Her chest pain started during treatment, and she was sent over for evaluation. She did run approximately 152 minutes yesterday, so no need for emergent dialysis today. HD will be ordered for tomorrow on her TTS schedule. Cardiology was consulted. Trops were negative and blood pressure was controlled with admission. This patient is well-known to the practice. She does not typically miss treatments. She denies any recent medication changes. Her changes and possible medical history. She lives at home with her . Past Med Surg Social Fam HX - Past Medical History Medical history: arthritis, CHF, COPD, DVT, diabetes, GERD, hyperlipidemia, hypertension, migraine, osteoporosis, renal disease, thyroid disease Additional medical history: dialysis 3 days a week Psychiatric history: anxiety, depression - Past Surgical History Surgical History: appendectomy, hysterectomy, orthopedic, other, IVC filter Additional surgical history: carpal tunnel surgery left hand - Social History Smoking Status: Former smoker Smokeless Tobacco Status: No Alcohol use: none Drug use: none - Family History Father Living Status: Hx Family Cardiac Disorders: Yes Hx Family GI Disorders: No Hx Family Neurologic Disorders: Yes Mother Living Status: Hx Family Cardiac Disorders: Yes Hx Family Cancer: Yes Hx Family GI Disorders: No Hx Family Endocrine Disorder: Yes (DIABETES MELLITUS.) Medications and Allergies Meclizine [Antivert] 25 mg PO TID 09/12/14 [History] Allopurinol [Zyloprim 100 MG] 100 mg PO DAILY 03/22/15 [History] DiphenhydraMINE [Benadryl] 25 mg PO TID 03/22/15 [History] Exenatide Microspheres [Bydureon Pen] 2 mg SQ WE 03/22/15 [History] Lidocaine Patch [Lidoderm 5% patch] 1 - 3 patch TP DAILY 03/22/15 [History] Nitroglycerin [Nitrostat] 0.4 mg SL Q5M PRN 03/22/15 [History] Promethazine [Phenergan] 25 mg PO TID 03/22/15 [History] clonazePAM [Klonopin] 1 mg PO HS 03/22/15 [History] Albuterol Neb [AccuNeb] 1.25 mg IH QID 05/06/16 [History] Nystatin POWDER [Nystop] 1 appl TP QID 05/06/16 [History] Rosuvastatin [Crestor] 20 mg PO HS 05/06/16 [History] Acetaminophen [Tylenol] 650 mg PO Q4-6H PRN 11/10/16 [History] Omeprazole [PriLOSEC] 40 mg PO DAILY 11/10/16 [History] Potassium Chloride [Klor-Con 10] 10 meq PO BID 11/11/16 [History] Gabapentin [Neurontin] 100 mg PO TID #90 capsule 11/27/16 [Rx] Albuterol Sulfate [Ventolin Hfa] 2 puff IH Q4H PRN 08/12/17 [History] Calcium Acetate [Phos-LO] 1,334 mg PO TID 08/12/17 [History] Cyclobenzaprine [Flexeril] 10 mg PO TID 08/12/17 [History] Docusate [Colace] 100 mg PO TID 08/12/17 [History] Doxepin HCl 50 mg PO HS 08/12/17 [History] Ergocalciferol (VITAMIN D2) [Vitamin D2] 50,000 unit PO DAILY 08/12/17 [History] Furosemide [Lasix] 20 mg PO BID 08/12/17 [History] Insulin ASPART [Novolog Flexpen] 32 unit SQ TIDAC 08/12/17 [History] Levothyroxine Sodium [Levoxyl] 125 mcg PO QAM 08/12/17 [History] Metoprolol XL (24 HR) Succ [Toprol Xl] 25 mg PO DAILY 08/12/17 [History] Warfarin [Coumadin] 5 mg PO DAILY 08/12/17 [History] hydrOXYzine HCl [Hydroxyzine HCl] 25 mg PO TID 08/12/17 [History] Insulin DETEMIR [Levemir] 10 unit SQ BID 30 Days #1 each 08/13/17 [Rx] Isosorbide MONOnitrate (24 HR) [Imdur] 120 mg PO QPM 30 Days #30 tab.er.24h 05/28 [Rx] amLODIPine [Norvasc] 2.5 mg PO DAILY #30 tablet 09/04/17 [Rx] 3 Allergy/AdvReac Type Severity Reaction Status Date / Time aspirin Allergy Hives Verified 08/12/17 08:48 cephalexin [From Keflex] Allergy Difficulty Verified 08/12/17 08:48 Breathing codeine Allergy Hypertensio Verified 08/12/17 08:48 n Cortisone Allergy See Verified 08/12/17 08:48 Comments hydrocortisone Allergy Hypertensio Verified 08/12/17 08:48 n ibuprofen Allergy Hives Verified 08/12/17 08:48 Iodinated Contrast- Oral and Allergy See Verified 08/12/17 08:48 IV Dye Comments [Iodinated Contrast Media - IV Dye] lidocaine [From Xylocaine] Allergy See Verified 08/12/17 08:48 Comments loratadine [From Claritin] Allergy Hives Verified 08/12/17 08:48 methylprednisolone Allergy Hypertensio Verified 08/12/17 08:48 [From Solu-Medrol] n Penicillins Allergy See Verified 08/12/17 08:48 Comments prednisone Allergy Hypertensio Verified 08/12/17 08:48 n Procaine [From Novocain] Allergy See Verified 08/12/17 08:48 Comments propoxyphene [From Darvon] Allergy See Verified 08/12/17 08:48 Comments pseudoephedrine Allergy Hives Verified 08/12/17 08:48 [From Sudafed] ropinirole [From Requip] Allergy See Verified 08/12/17 08:48 Comments tramadol AdvReac See Verified 01/07/17 18:11 Comments Review of Systems Constitutional: no chills, no fever(s) Cardiovascular: chest pain, no diaphoresis, no dyspnea Gastrointestinal: no change in bowel habits, no diarrhea, no vomiting Exam - Vital Signs Vital signs: Initial Vital Signs Temp Pulse Resp BP Pulse Ox 97.7 F 87 20 239/120 98 09/02/17 14:34 09/02/17 14:34 09/02/17 14:34 09/02/17 14:34 09/02/17 14:34 Vital Signs - Last 8 Hours Temp Pulse Resp BP Pulse Ox 09/03/17 11:34 97.9 F 72 17 154/79 98 09/03/17 10:56 17 99 09/03/17 07:37 98.6 F 77 17 120/71 99 Intake and Output 09/02/17 09/03/17 09/03/17 23:59 07:59 15:59 Other: Meal NPO Weight 156.6 kg Blood Glucose* 170 131 - General Appearance General appearance: well-developed, obese EENT: ATNC, hearing intact, vision intact Neck: supple Respiratory: clear Cardiology: no edema, normal S1, normal S2 - Dialysis Access Dialysis Vascular Access: Venous Catheter Additional Comments: Tunneled line, DRSG C/D/I. Gastrointestinal: normoactive bowel sounds, no tenderness, no guarding Integumentary: no rash, warm and dry Neurologic: alert and oriented x3 Results - Lab Results 09/03/17 05:34 09/03/17 05:34 Most recent lab results Calcium 8.7 mg/dL (8.6-10.3) 09/03/17 05:34 Magnesium 1.5 mg/dL (1.6-2.6) L 09/03/17 05:34 Consult Discharge Plan - Plan Referrals: Mauro Dockery MD [Primary Care Provider] - 09/05/17 2:15 pm Prescriptions: amLODIPine [Norvasc] 2.5 mg PO DAILY #30 tablet <Ovidio Pearl - Last Filed: 09/09/17 17:08> Date of Encounter: 09/03/17 Exam - Vital Signs Vital signs: Initial Vital Signs Temp Pulse Resp BP Pulse Ox 97.7 F 87 20 239/120 98 09/02/17 14:34 09/02/17 14:34 09/02/17 14:34 09/02/17 14:34 09/02/17 14:34 Results - Lab Results 09/04/17 06:49 09/04/17 06:49 Most recent lab results Calcium 9.0 mg/dL (8.6-10.3) 09/04/17 06:49 Magnesium 1.5 mg/dL (1.6-2.6) L 09/03/17 05:34 - Attending Attestation I examined this patient and my medical decision-making was reviewed with the Resident Physician/SENIOR TECH MANUFACTURING ENGINEERING. I agree with the documented findings, disposition and treatment plan as described except to the extent set forth below. Pt seen and examined; 62 y o female with PMH of DM, ,HTN and ESRD on HD admitted towards the end of HD with chest pain. Renal consulted for ESRD management. Pt received almost all of her last HD treatment prior to ER visit hence next HD would be performed tomorrow. Lytes stable. No signs of volume overload noted.
[2017-09-03] MEDS: hydrOXYzine pamoate 25 MG CAPSULE PO SCH ×2 (15:12→20:03)
[2017-09-03] MEDS: amLODIPine 5 MG TABLET PO SCH (15:12)
--- NOTE | 2017-09-03 17:13 | Internal Med Progress Note ---
Date of Encounter: 09/03/17 Time of Encounter: 17:07 - Assessment and plan (1) Chest pain Current Visit: Yes Status: Acute Assessment and plan: Pt had chest pain during HD, was found to have severely elevated BP. Chest pain improved after BP came down. cardiology consulted, TTE ordered, futher workup including LHC was not recommended per cards. pt counselled about aspirin desensitization, she is debating. Qualifiers: Chest pain type: precordial pain Qualified Code(s): R07.2 - Precordial pain (2) ESRD (end stage renal disease) on dialysis Current Visit: Yes Status: Chronic Assessment and plan: renal following for HD. (3) IDDM (insulin dependent diabetes mellitus) Current Visit: Yes Status: Chronic Assessment and plan: 1. Continue basal insulin and add SSI. 2. Monitor and adjust dosing as needed. (4) DVT prophylaxis Current Visit: Yes Status: Acute Assessment and plan: On Coumadin per home dosing. - Time Spent With Patient Total time spent is greater than 50% in coordination of care (as documented) at patient's floor/unit and/or counseling patient: - Subjective Interval history: pt currently is pain free. - Constitutional Vitals: Temp Pulse Resp BP Pulse Ox 98.2 F 80 17 155/101 100 09/03/17 15:51 09/03/17 15:51 09/03/17 15:51 09/03/17 15:51 09/03/17 15:51 General appearance: Present: cooperative, A&O X 3, pleasant, no acute distress, answers questions appropriately Exam: PHYSICAL EXAMINATION: GENERAL APPEARANCE: The patient is alert, oriented and in no acute distress. HEENT: Head is normocephalic. The sinuses are nontender. Pupils are equal and reactive. The nares are patent. Oropharynx clear without lesions. NECK: Supple without lymphadenopathy. HEART: Regular rate and rhythm. LUNGS: No crackles or wheezes are heard. ABDOMEN: Soft, nontender, nondistended with good bowel sounds heard. Inguinal area is normal. EXTREMITIES: Without cyanosis, clubbing or edema. NEUROLOGICAL: Gross nonfocal. SKIN: Warm and dry without any rash. Internal Medicine: Result - Labs CBC & Chem 7: 09/03/17 05:34 09/03/17 05:34 Labs: Short CBC 09/03/17 Range/Units 05:34 WBC 4.7 (4.3-11.1) K/mcL Hgb 9.8 L (11.5-15.4) g/dL Hct 32.6 L (35.3-44.9) % Plt Count 189 (140-400) K/mcL Neutrophils # 2.6 (1.6-8.9) K/mcL BMP 09/03/17 05:34 Sodium 138 Potassium 3.5 Chloride 103 Carbon Dioxide 26 BUN 18 Creatinine 2.88 H Glucose 163 H Calcium 8.7 Cardiac Enzymes 09/02/17 09/03/17 Range/Units 23:08 05:34 Troponin I 0.03 0.03 (< 0.04) ng/mL Liver Function 09/03/17 Range/Units 05:34 Total Bilirubin 0.4 (0.3-1.0) mg/dL AST 8 L (13-39) Units/L ALT 5 L (7-52) Units/L Alkaline Phosphatase 92 (34-104) Units/L Albumin 3.0 L (3.5-5.7) g/dL - ABG Interpretation ABG results: PT/INR, D-dimer PT 13.2 Seconds (9.4-12.1) H 09/03/17 05:34 Consult Discharge Plan - Plan Referrals: Mauro Dockery MD [Primary Care Provider] - 09/05/17 2:15 pm
[2017-09-03] MEDS ORDERED: Isosorbide MONOnitrate (24 HR) 60 MG TAB.ER.24H PO SCH (18:00)
--- NOTE | 2017-09-03 19:57 | Electrocardiograph Report ---
[place] [id number] Test Date: 2017-09-02 Pat Name: Jenny Mars Department: [id number] Room: 3B47 Gender: F Trash Collector: LEELA : 1955 Requested By: Casper Aldrich Order Number: [id number] Reading MD: Shari Christianson Measurements Intervals [place] Rate: 82 P: 33 NE: 169 QRS: 17 QRSD: 93 T: 18 QT: 410 QTc: 448 Interpretive Statements SINUS RHYTHM LOW QRS VOLTAGE IN PRECORDIAL LEADS [QRS DEFLECTION < 1.0 mV IN CHEST LEADS] POSSIBLE RIGHT VENTRICULAR CONDUCTION DELAY [RSR (QR) IN V1/V2] MINIMAL VOLTAGE CRITERIA FOR LVH, CONSIDER NORMAL VARIANT [MEETS CRITERIA IN ONE OF: R(aVL), S(V1), R(V5), R(V5/V6)+S(V1)] Electronically Signed On 09-03-2017 19:55:31 EDT by Shari Christianson
[2017-09-03] MEDS: clonazePAM 1 MG TABLET PO SCH (20:03)
[2017-09-03] MEDS: Furosemide 20 MG TABLET PO SCH (20:03)
[2017-09-04] MEDS: Acetaminophen 325 MG TABLET PO PRN (03:13)
[2017-09-04] MEDS: Albuterol Neb 1.25 MG/3 ML VIAL IH SCH ×3 (04:24→15:49)
[2017-09-04 07:02] LABS: INR 1.2; Prothrombin Time 13.1 Seconds (9.4-12.1)
[2017-09-04 07:23] LABS: Hematocrit 32.9 % (35.3-44.9); Hemoglobin 9.8 g/dL (11.5-15.4); Mean Corpuscular HGB Conc 29.8 g/dL (31.6-35.5); Mean Corpuscular Hemoglobin 29.3 pg (28.0-33.3); Mean Corpuscular Volume 98.5 fL (83.0-100.0); Mean Platelet Volume 10.2 fL (9.4-12.4); Platelet Count 223 K/mcL (140-400); Red Blood Count 3.34 M/mcL (3.82-4.97); Red Cell Distribution Width 16.9 % (11.5-14.5)
[2017-09-04 07:32] LABS: Potassium 4.3 mEq/L (3.5-5.1)
[2017-09-04 07:53] LABS: Hepatitis B Surface Antigen Nonreactive (Nonreactive)
[2017-09-04] MEDS ORDERED: 0.9 % Sodium Chloride 250 ML IVC PRN (08:22)
[2017-09-04] MEDS ORDERED: 0.9 % Sodium Chloride 1,000 ML PRIME SCH (08:30)
[2017-09-04] MEDS ORDERED: 0.9 % Sodium Chloride 2,000 ML ONE (08:38)
--- NOTE | 2017-09-04 09:42 | Nephrology Progress Note ---
<Sherlyn Jerez - Last Filed: 09/04/17 09:37> Date of Encounter: 09/04/17 Time of Encounter: 09:38 - Assessment and Plan (1) ESRD (end stage renal disease) on dialysis Status: Chronic Current regimen is TTS. HD and progress today. Continue to renal dose all medications and avoid nephrotoxins. Will order additional UF for HD as needed. (2) Essential hypertension Status: Acute Per primary. (3) Atypical chest pain Status: Acute Per cardiology. Subjective Principal diagnosis: CP Interval history: Pt seen and examined during HD, tolerating well. Objective - Vital Signs Vital signs: Vital Signs Temp Pulse Resp BP Pulse Ox 09/04/17 07:34 97.7 F 79 17 103/65 99 09/04/17 04:24 18 96 09/04/17 03:32 98.0 F 78 16 117/60 97 09/03/17 23:11 98.2 F 75 16 108/60 95 09/03/17 22:03 19 98 09/03/17 20:16 95 09/03/17 19:10 97.8 F 81 16 133/72 97 09/03/17 15:51 98.2 F 80 17 155/101 98 09/03/17 11:34 97.9 F 72 17 154/79 98 09/03/17 10:56 17 99 Intake and Output 09/03/17 09/04/17 09/04/17 23:59 07:59 15:59 Other: Weight 160 kg Blood Glucose* 260 199 Patient Weight 09/04/17 23:59 Weight 160 kg - General Appearance General appearance: Present: well-developed, obese EENT: Present: ATNC, hearing intact, vision intact Neck: Present: supple Respiratory: Present: clear Cardiology: Present: no edema, normal S1, normal S2 Dialysis Vascular Access: Venous Catheter (Tunneled Line, DRSG C/D/I.) Gastrointestinal: Present: normoactive bowel sounds, no tenderness, no guarding Integumentary: Present: no rash, warm and dry Neurologic: Present: alert and oriented x3 Psychiatric: Present: mood/affect appropriate - Lab 09/04/17 06:49 09/04/17 06:49 Most recent lab results Calcium 9.0 mg/dL (8.6-10.3) 07/26/18 06:49 Magnesium 1.5 mg/dL (1.6-2.6) L 09/03/17 05:34 Consult Discharge Plan - Plan Referrals: Mauro Dockery MD [Primary Care Provider] - 09/05/17 2:15 pm Prescriptions: amLODIPine [Norvasc] 2.5 mg PO DAILY #30 tablet <Jay Pearllenny Jeffries - Last Filed: 09/12/17 11:17> Date of Encounter: 09/04/17 Objective - Lab 09/04/17 06:49 09/04/17 06:49 Most recent lab results Calcium 9.0 mg/dL (8.6-10.3) 09/04/17 06:49 Magnesium 1.5 mg/dL (1.6-2.6) L 09/03/17 05:34 - Attending Attestation I examined this patient and my medical decision-making was reviewed with the Resident Physician/DANCING TEACHER. I agree with the documented findings, disposition and treatment plan as described except to the extent set forth below. Pt seen and examined on HD doing well. Exam unremarkable. Labs stable. Continue HD with UF as tolerated. Continue renal diet.
--- NOTE | 2017-09-04 12:50 | Cardiology Progress Note ---
Date of Encounter: 09/04/17 Time of Encounter: 12:48 Assessment and Plan (1) Atypical chest pain Current Visit: Yes Status: Acute Per cardiology: C/o atypical chest pain at rest, reproducible with palpation. No pain with exertion, occurs with dialysis, BP hypertensive 239/120 on admission. Troponins negative x4. ECG with no acute ishchemic changes noted. TTE 11/2016 with LVEF preserved 60-65%, no segmental wall motion abnormalities noted. TTE this admission shows EF 60%. Atypical septal motion. OF note, patient refuses stress test, states it drops her BP and has refused historically since 2015 (OP office note reviewed from ). Allergy noted to ASA. Offered asa desensitization and further cardiac testing. She declines asa desensitization or stress test. Continue medical management. Continue beta-rudy, norvasc, and statin. NTG PRN. B/p has improved. Out-pt f/u. Cardiology will sign off. (2) Essential hypertension Current Visit: Yes Status: Acute Per cardiology: -BP extremely hypertensive on admission, noted to be 239/120. -Currently 120-160 systolic. -On BB, toprol 25mg daily. Not on nani/arb due to renal function. Norvasc 2.5mg daily added. -Continue to monitor BP. Discussion w patient/family: The assessment and plan as outlined above was discussed with the patient and/or family members who expressed understanding and agreement. All questions were answered. Thank you for involving us in the care of your patient. Please call with any questions. Subjective Principal diagnosis: CP Interval history: Patient denies recurrent chest pain. States that she does not want any test. Objective General: Conversant, No Apparent Distress, Other (Obese female) HEENT: Atraumatic, Normocephaly, Mucus Membranes Moist Neck: No JVD, Normal carotid pulses, Other (right dialysis catheter) Cardiac: Reg Rate and Rhythm, Normal S1 and S2, No Murmur Lungs: Normal Breath Sounds, No Wheeze, Rales, Rhonchi Neuro: Alert and responsive, No focal deficits noted Abdomen: Soft, Non-Tender Skin: No rashes noted on visualized skin Musculoskeletal: No Chest Wall Tenderness Extremities: No Clubbing, No Cyanosis, Normal Pulses, Other (BLE edema) Results 09/04/17 06:49 09/04/17 06:49 Lab Results 09/04/17 09/04/17 09/04/17 05:14 06:49 06:49 WBC 5.8 Hgb 9.8 L Hct 32.9 L Plt Count 223 INR 1.2 Sodium 138 Potassium 4.3 Chloride 103 Carbon Dioxide 21 L BUN 25 H Creatinine 3.77 H Glucose 185 H Calcium 9.0 - Imaging and Cardiology Echo: report reviewed - EKG Interpretation EKG results cardiology: personally reviewed Consult Discharge Plan - Plan Referrals: Mauro Dockery MD [Primary Care Provider] - 09/05/17 2:15 pm
--- NOTE | 2017-09-04 13:14 | Discharge Summary ---
- NOTES TO OUTPATIENT PROVIDER Notes to Outpatient Provider: f/u with PCP within a week,. f/u with cardiology within 1-2 weeks. Orders not resulted at time of discharge: Pending orders 09/04/17 06:49 Hepatitis B Surface Antibody Stat Hepatitis B Surface Antigen Stat 09/05/17 04:00 Basic Metabolic Panel AM 0400 Complete Blood Count w/o Diff [HEME] AM 0400 PT/INR [Prothrombin Time INR] [COAG] DAILY 09/06/17 04:00 Basic Metabolic Panel AM 0400 Complete Blood Count w/o Diff [HEME] AM 0400 PT/INR [Prothrombin Time INR] [COAG] DAILY 09/07/17 04:00 Basic Metabolic Panel AM 0400 Complete Blood Count w/o Diff [HEME] AM 0400 PT/INR [Prothrombin Time INR] [COAG] DAILY 09/08/17 04:00 Basic Metabolic Panel AM 0400 Complete Blood Count w/o Diff [HEME] AM 0400 PT/INR [Prothrombin Time INR] [COAG] DAILY 09/09/17 04:00 Basic Metabolic Panel AM 0400 Complete Blood Count w/o Diff [HEME] AM 0400 PT/INR [Prothrombin Time INR] [COAG] DAILY 09/10/17 04:00 Basic Metabolic Panel AM 0400 Complete Blood Count w/o Diff [HEME] AM 0400 PT/INR [Prothrombin Time INR] [COAG] DAILY 09/11/17 04:00 Basic Metabolic Panel AM 0400 Complete Blood Count w/o Diff [HEME] AM 0400 09/12/17 04:00 Basic Metabolic Panel AM 0400 Complete Blood Count w/o Diff [HEME] AM 0400 Date of Encounter: 09/04/17 Time of Encounter: 13:07 - Discharge Diagnosis (1) Chest pain Priority: Primary Status: Acute Qualifiers: Chest pain type: precordial pain Qualified Code(s): R07.2 - Precordial pain (2) ESRD (end stage renal disease) on dialysis Priority: Secondary Status: Chronic (3) IDDM (insulin dependent diabetes mellitus) Priority: Secondary Status: Chronic (4) DVT prophylaxis Priority: Primary Status: Acute Hospital course: Ms. Mars is a 62 year old female who presents with complaints of chest pain which started before her dialysis today and then worsened during dialysis. She states her pain was much worse during dialysis and that they had to stop her dialysis prematurely. She was transferred to the ER for evaluation and admission. Workup was initiated in the ER and patient was admitted to hospitalist service. BP was severely elevated upon arrival. Chest pain improved after BP was controlled. Troponin was negative, EKG did not show acute ST-T changes. repeat ECHO showed EF 60%. She has been admitted several times in the past for chest pain. She refused stress test. She was allergic to Aspirin. cardiology was consulted. As aspirin will be most likely prescribed if PCI was performed and any lesion was identified. Cardiology offered asa desensitization. However, she refused either. After discussed all the risks and benefits of refusing medical advices, Pt states she understands. She will be discharged home today. She will f/u with PCP and cardiology as scheduled. Discharge discussed with: patient, family Time spent discussing smoking cessation with patient: more than 10 minutes - Time Spent with Patient Total time spent providing and/or coordinating discharge services: Greater than 30 minutes - Discharge Medications Prescriptions: amLODIPine [Norvasc] 2.5 mg PO DAILY #30 tablet Home Medications: Meclizine [Antivert] 25 mg PO TID 09/12/14 [History] Allopurinol [Zyloprim 100 MG] 100 mg PO DAILY 03/22/15 [History] DiphenhydraMINE [Benadryl] 25 mg PO TID 03/22/15 [History] Exenatide Microspheres [Bydureon Pen] 2 mg SQ WE 03/22/15 [History] Lidocaine Patch [Lidoderm 5% patch] 1 - 3 patch TP DAILY 03/22/15 [History] Nitroglycerin [Nitrostat] 0.4 mg SL Q5M PRN 03/22/15 [History] Promethazine [Phenergan] 25 mg PO TID 03/22/15 [History] clonazePAM [Klonopin] 1 mg PO HS 03/22/15 [History] Albuterol Neb [AccuNeb] 1.25 mg IH QID 05/06/16 [History] Nystatin POWDER [Nystop] 1 appl TP QID 05/06/16 [History] Rosuvastatin [Crestor] 20 mg PO HS 05/06/16 [History] Acetaminophen [Tylenol] 650 mg PO Q4-6H PRN 10/01/17 [History] Omeprazole [PriLOSEC] 40 mg PO DAILY 11/10/16 [History] Potassium Chloride [Klor-Con 10] 10 meq PO BID 11/11/16 [History] Gabapentin [Neurontin] 100 mg PO TID #90 capsule 11/27/16 [Rx] Albuterol Sulfate [Ventolin Hfa] 2 puff IH Q4H PRN 08/12/17 [History] Calcium Acetate [Phos-LO] 1,334 mg PO TID 08/12/17 [History] Cyclobenzaprine [Flexeril] 10 mg PO TID 08/12/17 [History] Docusate [Colace] 100 mg PO TID 08/12/17 [History] Doxepin HCl 50 mg PO HS 08/12/17 [History] Ergocalciferol (VITAMIN D2) [Vitamin D2] 50,000 unit PO DAILY 08/12/17 [History] Furosemide [Lasix] 20 mg PO BID 08/12/17 [History] Insulin ASPART [Novolog Flexpen] 32 unit SQ TIDAC 08/12/17 [History] Levothyroxine Sodium [Levoxyl] 125 mcg PO QAM 08/12/17 [History] Metoprolol XL (24 HR) Succ [Toprol Xl] 25 mg PO DAILY 08/12/17 [History] Warfarin [Coumadin] 5 mg PO DAILY 08/12/17 [History] hydrOXYzine HCl [Hydroxyzine HCl] 25 mg PO TID 08/12/17 [History] Insulin DETEMIR [Levemir] 10 unit SQ BID 30 Days #1 each 08/13/17 [Rx] Isosorbide MONOnitrate (24 HR) [Imdur] 120 mg PO QPM 30 Days #30 tab.er.24h 05/28 [Rx] amLODIPine [Norvasc] 2.5 mg PO DAILY #30 tablet 09/04/17 [Rx] Allergies/Adverse Reactions: 3 Allergy/AdvReac Type Severity Reaction Status Date / Time aspirin Allergy Hives Verified 08/12/17 08:48 cephalexin [From Keflex] Allergy Difficulty Verified 08/12/17 08:48 Breathing codeine Allergy Hypertensio Verified 08/12/17 08:48 n Cortisone Allergy See Verified 08/12/17 08:48 Comments hydrocortisone Allergy Hypertensio Verified 08/12/17 08:48 n ibuprofen Allergy Hives Verified 08/12/17 08:48 Iodinated Contrast- Oral and Allergy See Verified 08/12/17 08:48 IV Dye Comments [Iodinated Contrast Media - IV Dye] lidocaine [From Xylocaine] Allergy See Verified 08/12/17 08:48 Comments loratadine [From Claritin] Allergy Hives Verified 08/12/17 08:48 methylprednisolone Allergy Hypertensio Verified 08/12/17 08:48 [From Solu-Medrol] n Penicillins Allergy See Verified 08/12/17 08:48 Comments prednisone Allergy Hypertensio Verified 08/12/17 08:48 n Procaine [From Novocain] Allergy See Verified 08/12/17 08:48 Comments propoxyphene [From Darvon] Allergy See Verified 08/12/17 08:48 Comments pseudoephedrine Allergy Hives Verified 08/12/17 08:48 [From Sudafed] ropinirole [From Requip] Allergy See Verified 08/12/17 08:48 Comments tramadol AdvReac See Verified 01/07/17 18:11 Comments Date of admission: 09/02/17 19:54 Primary care physician: Mauro Dockery MD Consults: 09/04/17 08:30 Consult to Dialysis [CONS] ONCE Anticipated date of discharge: 09/04/17 - Constitutional Vitals: Temp Pulse Resp BP Pulse Ox 97.7 F 79 17 103/65 99 09/04/17 07:34 09/04/17 07:34 09/04/17 07:34 09/04/17 07:34 09/04/17 07:34 General appearance: Present: cooperative, A&O X 3, pleasant, no acute distress, answers questions appropriately Exam: PHYSICAL EXAMINATION: GENERAL APPEARANCE: The patient is alert, oriented and in no acute distress. HEENT: Head is normocephalic. The sinuses are nontender. Pupils are equal and reactive. The nares are patent. Oropharynx clear without lesions. NECK: Supple without lymphadenopathy. HEART: Regular rate and rhythm. LUNGS: No crackles or wheezes are heard. ABDOMEN: Soft, nontender, nondistended with good bowel sounds heard. Inguinal area is normal. EXTREMITIES: Without cyanosis, clubbing or edema. NEUROLOGICAL: Gross nonfocal. SKIN: Warm and dry without any rash. - Patient Status Disposition: Home, Self-Care Condition: Good Functional capacity at discharge: independent ambulation Overall status at discharge: patient is back to baseline - Discharge Instructions Follow Up With: Mauro Dockery MD [Primary Care Provider] - 09/05/17 2:15 pm - Diet and Activity Activity: increase activity as tolerated Diet: diabetic diet, low fat, low cholesterol, low salt diet
[2017-09-04 14:39] VITALS: BP 147/65
--- NOTE | 2017-09-04 14:54 | Physician Discharge Referral ---
Home Health/Hosp Referral Info Transfer to: Home Health - Diagnosis (1) Chest pain Priority: Primary Status: Acute (2) ESRD (end stage renal disease) on dialysis Priority: Secondary Status: Chronic (3) IDDM (insulin dependent diabetes mellitus) Priority: Secondary Status: Chronic (4) DVT prophylaxis Priority: Primary Status: Acute - Respiratory Orders Smoking Cessation: Smoking cessation has been advised. For more information, call the [place] Tobacco Quit Line at 7-372-LATZ-NOW. - Diet/Nutrition Diet/Nutrition Orders: Renal, Cardiac - Activity Activity Orders: Ambulate - Services Needed Following services are medically necessary services: Nursing, Home Health Aide, Physical Therapy, Occupational Therapy - Transfer Medications Prescriptions: amLODIPine [Norvasc] 2.5 mg PO DAILY #30 tablet Home Medications: Meclizine [Antivert] 25 mg PO TID 09/12/14 [History] Allopurinol [Zyloprim 100 MG] 100 mg PO DAILY 03/22/15 [History] DiphenhydraMINE [Benadryl] 25 mg PO TID 03/22/15 [History] Exenatide Microspheres [Bydureon Pen] 2 mg SQ WE 03/22/15 [History] Lidocaine Patch [Lidoderm 5% patch] 1 - 3 patch TP DAILY 03/22/15 [History] Nitroglycerin [Nitrostat] 0.4 mg SL Q5M PRN 03/22/15 [History] Promethazine [Phenergan] 25 mg PO TID 03/22/15 [History] clonazePAM [Klonopin] 1 mg PO HS 03/22/15 [History] Albuterol Neb [AccuNeb] 1.25 mg IH QID 05/06/16 [History] Nystatin POWDER [Nystop] 1 appl TP QID 05/06/16 [History] Rosuvastatin [Crestor] 20 mg PO HS 05/06/16 [History] Acetaminophen [Tylenol] 650 mg PO Q4-6H PRN 11/10/16 [History] Omeprazole [PriLOSEC] 40 mg PO DAILY 11/10/16 [History] Potassium Chloride [Klor-Con 10] 10 meq PO BID 11/11/16 [History] Gabapentin [Neurontin] 100 mg PO TID #90 capsule 11/27/16 [Rx] Albuterol Sulfate [Ventolin Hfa] 2 puff IH Q4H PRN 08/12/17 [History] Calcium Acetate [Phos-LO] 1,334 mg PO TID 08/12/17 [History] Cyclobenzaprine [Flexeril] 10 mg PO TID 08/12/17 [History] Docusate [Colace] 100 mg PO TID 08/12/17 [History] Doxepin HCl 50 mg PO HS 08/12/17 [History] Ergocalciferol (VITAMIN D2) [Vitamin D2] 50,000 unit PO DAILY 08/12/17 [History] Furosemide [Lasix] 20 mg PO BID 08/12/17 [History] Insulin ASPART [Novolog Flexpen] 32 unit SQ TIDAC 08/12/17 [History] Levothyroxine Sodium [Levoxyl] 125 mcg PO QAM 08/12/17 [History] Metoprolol XL (24 HR) Succ [Toprol Xl] 25 mg PO DAILY 08/12/17 [History] Warfarin [Coumadin] 5 mg PO DAILY 08/12/17 [History] hydrOXYzine HCl [Hydroxyzine HCl] 25 mg PO TID 08/12/17 [History] Insulin DETEMIR [Levemir] 10 unit SQ BID 30 Days #1 each 08/13/17 [Rx] Isosorbide MONOnitrate (24 HR) [Imdur] 120 mg PO QPM 30 Days #30 tab.er.24h 05/28 [Rx] amLODIPine [Norvasc] 2.5 mg PO DAILY #30 tablet 09/04/17 [Rx] Allergies/Adverse Reactions: 3 Allergy/AdvReac Type Severity Reaction Status Date / Time aspirin Allergy Hives Verified 08/12/17 08:48 cephalexin [From Keflex] Allergy Difficulty Verified 08/12/17 08:48 Breathing codeine Allergy Hypertensio Verified 08/12/17 08:48 n Cortisone Allergy See Verified 08/12/17 08:48 Comments hydrocortisone Allergy Hypertensio Verified 08/12/17 08:48 n ibuprofen Allergy Hives Verified 08/12/17 08:48 Iodinated Contrast- Oral and Allergy See Verified 08/12/17 08:48 IV Dye Comments [Iodinated Contrast Media - IV Dye] lidocaine [From Xylocaine] Allergy See Verified 08/12/17 08:48 Comments loratadine [From Claritin] Allergy Hives Verified 08/12/17 08:48 methylprednisolone Allergy Hypertensio Verified 08/12/17 08:48 [From Solu-Medrol] n Penicillins Allergy See Verified 08/12/17 08:48 Comments prednisone Allergy Hypertensio Verified 08/12/17 08:48 n Procaine [From Novocain] Allergy See Verified 08/12/17 08:48 Comments propoxyphene [From Darvon] Allergy See Verified 08/12/17 08:48 Comments pseudoephedrine Allergy Hives Verified 08/12/17 08:48 [From Sudafed] ropinirole [From Requip] Allergy See Verified 08/12/17 08:48 Comments tramadol AdvReac See Verified 01/07/17 18:11 Comments Certification: Further, I certify that my clinical findings support that this patient is homebound (i.e. absences from home require considerable and taxing effort and are for medical reasons or buddhist services or infrequently or short duration when for other reasons) because: Homebound Reason: Severity of cardiac or pulmonary status limits activity tolerance Attestation: My signature below is to certify that this patient is under my care and that I, or nurse practitioner, or a physician's grooming assistant working with me, has a face-to -face encounter with this patient.
[2017-09-04] MEDS: Insulin LISPRO 300 UNITS/3 ML VIAL SQ SCH (15:17)
[2017-09-04] MEDS: *HR* Warfarin 5 MG TABLET PO SCH (15:19)
[2017-09-04] MEDS: Furosemide 20 MG TABLET PO SCH (15:19)
[2017-09-04] MEDS: hydrOXYzine pamoate 25 MG CAPSULE PO SCH ×2 (15:19→15:22)
[2017-09-04] MEDS: Insulin DETEMIR 100 UNIT/ML X5UNITS SQ SCH (15:19)
[2017-09-04] MEDS: amLODIPine 5 MG TABLET PO SCH (15:20)
[2017-09-04] MEDS: Calcium Acetate 667 MG CAPSULE PO SCH ×2 (15:20→15:23)
[2017-09-04] MEDS: Gabapentin 100 MG CAPSULE PO SCH ×2 (15:20→15:23)
[2017-09-04] MEDS: Cholecalciferol (D-3) 1,000 UNIT TABLET PO SCH (15:21)
[2017-09-04] MEDS: Metoprolol XL (24 HR) Succ 25 MG TAB.ER.24H PO SCH (15:21)
--- NOTE | 2017-09-04 15:31 | Physician Discharge Referral ---
Home Health/Hosp Referral Info Transfer to: Home Health Provider in Charge Post Discharge: PCP - Diagnosis (1) Chest pain Priority: Primary Status: Acute (2) ESRD (end stage renal disease) on dialysis Priority: Secondary Status: Chronic (3) IDDM (insulin dependent diabetes mellitus) Priority: Secondary Status: Chronic (4) DVT prophylaxis Priority: Primary Status: Acute - Respiratory Orders Smoking Cessation: Smoking cessation has been advised. For more information, call the [place] Tobacco Quit Line at 5-382-HYYZ-NOW. - Diet/Nutrition Diet/Nutrition Orders: Renal, Cardiac - Activity Activity Orders: Up ad [place], Ambulate - Services Needed Following services are medically necessary services: Nursing - Transfer Medications Prescriptions: amLODIPine [Norvasc] 2.5 mg PO DAILY #30 tablet Home Medications: Meclizine [Antivert] 25 mg PO TID 09/12/14 [History] Allopurinol [Zyloprim 100 MG] 100 mg PO DAILY 03/22/15 [History] DiphenhydraMINE [Benadryl] 25 mg PO TID 03/22/15 [History] Exenatide Microspheres [Bydureon Pen] 2 mg SQ WE 03/22/15 [History] Lidocaine Patch [Lidoderm 5% patch] 1 - 3 patch TP DAILY 03/22/15 [History] Nitroglycerin [Nitrostat] 0.4 mg SL Q5M PRN 03/22/15 [History] Promethazine [Phenergan] 25 mg PO TID 03/22/15 [History] clonazePAM [Klonopin] 1 mg PO HS 03/22/15 [History] Albuterol Neb [AccuNeb] 1.25 mg IH QID 05/06/16 [History] Nystatin POWDER [Nystop] 1 appl TP QID 05/06/16 [History] Rosuvastatin [Crestor] 20 mg PO HS 05/06/16 [History] Acetaminophen [Tylenol] 650 mg PO Q4-6H PRN 11/10/16 [History] Omeprazole [PriLOSEC] 40 mg PO DAILY 11/10/16 [History] Potassium Chloride [Klor-Con 10] 10 meq PO BID 11/11/16 [History] Gabapentin [Neurontin] 100 mg PO TID #90 capsule 11/27/16 [Rx] Albuterol Sulfate [Ventolin Hfa] 2 puff IH Q4H PRN 08/12/17 [History] Calcium Acetate [Phos-LO] 1,334 mg PO TID 08/12/17 [History] Cyclobenzaprine [Flexeril] 10 mg PO TID 08/12/17 [History] Docusate [Colace] 100 mg PO TID 08/12/17 [History] Doxepin HCl 50 mg PO HS 08/12/17 [History] Ergocalciferol (VITAMIN D2) [Vitamin D2] 50,000 unit PO DAILY 08/12/17 [History] Furosemide [Lasix] 20 mg PO BID 08/12/17 [History] Insulin ASPART [Novolog Flexpen] 32 unit SQ TIDAC 08/12/17 [History] Levothyroxine Sodium [Levoxyl] 125 mcg PO QAM 08/12/17 [History] Metoprolol XL (24 HR) Succ [Toprol Xl] 25 mg PO DAILY 08/12/17 [History] Warfarin [Coumadin] 5 mg PO DAILY 08/12/17 [History] hydrOXYzine HCl [Hydroxyzine HCl] 25 mg PO TID 08/12/17 [History] Insulin DETEMIR [Levemir] 10 unit SQ BID 30 Days #1 each 08/13/17 [Rx] Isosorbide MONOnitrate (24 HR) [Imdur] 120 mg PO QPM 30 Days #30 tab.er.24h 05/28 [Rx] amLODIPine [Norvasc] 2.5 mg PO DAILY #30 tablet 09/04/17 [Rx] Allergies/Adverse Reactions: 3 Allergy/AdvReac Type Severity Reaction Status Date / Time aspirin Allergy Hives Verified 08/12/17 08:48 cephalexin [From Keflex] Allergy Difficulty Verified 08/12/17 08:48 Breathing codeine Allergy Hypertensio Verified 08/12/17 08:48 n Cortisone Allergy See Verified 08/12/17 08:48 Comments hydrocortisone Allergy Hypertensio Verified 08/12/17 08:48 n ibuprofen Allergy Hives Verified 08/12/17 08:48 Iodinated Contrast- Oral and Allergy See Verified 08/12/17 08:48 IV Dye Comments [Iodinated Contrast Media - IV Dye] lidocaine [From Xylocaine] Allergy See Verified 08/12/17 08:48 Comments loratadine [From Claritin] Allergy Hives Verified 08/12/17 08:48 methylprednisolone Allergy Hypertensio Verified 08/12/17 08:48 [From Solu-Medrol] n Penicillins Allergy See Verified 08/12/17 08:48 Comments prednisone Allergy Hypertensio Verified 08/12/17 08:48 n Procaine [From Novocain] Allergy See Verified 08/12/17 08:48 Comments propoxyphene [From Darvon] Allergy See Verified 08/12/17 08:48 Comments pseudoephedrine Allergy Hives Verified 08/12/17 08:48 [From Sudafed] ropinirole [From Requip] Allergy See Verified 08/12/17 08:48 Comments tramadol AdvReac See Verified 01/07/17 18:11 Comments Certification: Further, I certify that my clinical findings support that this patient is homebound (i.e. absences from home require considerable and taxing effort and are for medical reasons or episcopal services or infrequently or short duration when for other reasons) because: Homebound Reason: Severity of cardiac or pulmonary status limits activity tolerance Attestation: My signature below is to certify that this patient is under my care and that I, or nurse practitioner, or a physician's assistant district attorney working with me, has a face-to -face encounter with this patient.
== END 2017-09-04 16:01 | disposition home or self-care (01) ==
LOC: 3BNU 14:33 → EMEROO 14:33 → 3BNU 20:45
PROVIDERS: ADMIT Pediatrics; ATTEND Internal Medicine

== ENCOUNTER 2017-09-23 08:05 | Observation (INO) ==
--- NOTE | 2017-09-23 08:41 | Emergency Department Note ---
Disposition Clinical Impression: Hemodialysis catheter malfunction Qualifiers: Encounter type: initial encounter Qualified Code(s): T82.41XA - Breakdown ( mechanical) of vascular dialysis catheter, initial encounter Disposition: Admitted As Inpatient Condition: Good General Adult HPI - General Chief complaint: ED General Medical Stated complaint: dialysis cath not working Time Seen by Provider: 09/23/17 08:14 Source: patient, family Limitations: no limitations Nursing Notes Reviewed: Yes Vital Signs Reviewed: Yes - History of Present Illness HPI Narrative: 62-year-old female presents emergency Department with concerns of dialysis catheter malfunction. Patient states she had the dialysis catheter placed more than 3 months ago, she had been using it well since that time. Over the past 3 days the patient states she has been unable to complete a full dialysis session secondary to malfunctioning of the catheter. Last full dialysis session was 5 days ago. Patient denies shortness of breath at this time. She denies fever, chills, nausea, vomiting. She was sent to the emergency department from the dialysis center after they had apparently talked with Dr. Del Castillo. Patient denies chest pain, nausea, vomiting, diarrhea. She has chronic abdominal pain which is unchanged today. Pain Scale: 0 - Related Data Home Medications Medication Instructions Recorded Confirmed Meclizine [Antivert] 25 mg PO TID 09/12/14 09/23/17 Allopurinol [Zyloprim 100 MG] 100 mg PO DAILY 03/22/15 09/23/17 DiphenhydraMINE [Benadryl] 25 mg PO TID 03/22/15 09/23/17 Exenatide Microspheres [Bydureon 2 mg SQ WE 03/22/15 09/23/17 Pen] Lidocaine Patch [Lidoderm 5% patch] 1 patch TP DAILY 03/22/15 09/23/17 Nitroglycerin [Nitrostat] 0.4 mg SL Q5M PRN 03/22/15 09/23/17 Promethazine [Phenergan] 25 mg PO TID 03/22/15 09/23/17 clonazePAM [Klonopin] 1 mg PO HS 03/22/15 09/23/17 Albuterol Neb [AccuNeb] 1.25 mg IH QID 05/06/16 09/23/17 Nystatin POWDER [Nystop] 1 appl TP BID 05/06/16 09/23/17 Rosuvastatin [Crestor] 20 mg PO HS 05/06/16 09/23/17 Acetaminophen [Tylenol] 650 mg PO Q4-6H PRN 11/10/16 09/23/17 Omeprazole [PriLOSEC] 40 mg PO DAILY 11/10/16 09/23/17 Potassium Chloride [Klor-Con 10] 10 meq PO BID 11/11/16 09/23/17 Albuterol Sulfate [Ventolin Hfa] 2 puff IH Q4H PRN 08/12/17 09/23/17 Calcium Acetate [Phos-LO] 1,334 mg PO TID 08/12/17 09/23/17 Cyclobenzaprine [Flexeril] 10 mg PO TID 08/12/17 09/23/17 Docusate [Colace] 100 mg PO TID 08/12/17 09/23/17 Doxepin HCl 50 mg PO HS 08/12/17 09/23/17 Furosemide [Lasix] 40 mg PO QAM 08/12/17 09/23/17 Insulin ASPART [Novolog Flexpen] 32 unit SQ TIDAC 08/12/17 09/23/17 Levothyroxine Sodium [Levoxyl] 250 mcg PO QAM 08/12/17 09/23/17 Metoprolol XL (24 HR) Succ [Toprol 25 mg PO DAILY 08/12/17 09/23/17 Xl] Warfarin [Coumadin] 5 mg PO DAILY 08/12/17 09/23/17 hydrOXYzine HCl [Hydroxyzine HCl] 25 mg PO TID PRN 08/12/17 09/23/17 Ergocalciferol (VITAMIN D2) 50,000 unit PO QWEEK 09/23/17 09/23/17 [Vitamin D2] Furosemide [Lasix] 20 mg PO QPM 09/23/17 09/23/17 Furosemide [Lasix] 40 mg PO HS 09/23/17 09/23/17 Insulin Glargine,Hum.rec.anlog 100 unit SQ BID 09/23/17 09/23/17 [Lantus Solostar] Previous Rx's Medication Instructions Recorded Gabapentin [Neurontin] 100 mg PO TID #90 capsule 11/27/16 Isosorbide MONOnitrate (24 HR) 120 mg PO QPM 30 Days #30 08/13/17 [Imdur] tab.er.24h amLODIPine [Norvasc] 2.5 mg PO DAILY #30 tablet 09/04/17 Allergies Allergy/AdvReac Type Severity Reaction Status Date / Time aspirin Allergy Hives Verified 09/23/17 10:21 cephalexin [From Keflex] Allergy Difficulty Verified 09/23/17 10:21 Breathing Cortisone Allergy See Verified 09/23/17 10:21 Comments ibuprofen Allergy Hives Verified 09/23/17 10:21 Iodinated Contrast- Oral and Allergy See Verified 09/23/17 10:21 IV Dye Comments [Iodinated Contrast Media - IV Dye] lidocaine [From Xylocaine] Allergy See Verified 09/23/17 10:21 Comments loratadine [From Claritin] Allergy Hives Verified 09/23/17 10:21 Penicillins Allergy See Verified 09/23/17 10:21 Comments Procaine [From Novocain] Allergy See Verified 09/23/17 10:21 Comments propoxyphene [From Darvon] Allergy See Verified 09/23/17 10:21 Comments pseudoephedrine Allergy Hives Verified 09/23/17 10:21 [From Sudafed] ropinirole [From Requip] Allergy See Verified 09/23/17 10:21 Comments acetaminophen AdvReac See Verified 09/23/17 14:23 Comments albuterol AdvReac Shakiness Verified 09/23/17 14:11 calcium AdvReac See Verified 09/23/17 14:13 Comments ceftriaxone [From Rocephin] AdvReac See Verified 09/23/17 14:23 Comments clindamycin AdvReac Hypotension Verified 09/23/17 14:13 codeine AdvReac Hypertensio Verified 09/23/17 10:21 n doxycycline AdvReac See Verified 09/23/17 14:15 Comments famotidine AdvReac See Verified 09/23/17 14:15 Comments hydrocodone AdvReac See Verified 09/23/17 14:16 Comments hydrocortisone AdvReac Hypertensio Verified 09/23/17 10:21 n ipratropium AdvReac See Verified 09/23/17 14:23 Comments methylprednisolone AdvReac Hypertensio Verified 09/23/17 10:21 [From Solu-Medrol] n Neomycin AdvReac See Verified 09/23/17 14:23 Comments NSAIDS (Non-Steroidal AdvReac See Verified 09/23/17 14:23 Anti-Inflamma Comments prednisone AdvReac Hypertensio Verified 09/23/17 10:21 n Sulfa (Sulfonamide AdvReac See Verified 09/23/17 14:23 Antibiotics) Comments terfenadine AdvReac See Verified 09/23/17 14:23 Comments tramadol AdvReac See Verified 09/23/17 10:21 Comments All systems ED: reviewed and negative except as stated. Review of Systems: As Per HPI Past Medical History - Past Medical History Attestation: Yes The following information was validated with the patient. Source: patient Medical history: Reports: arthritis, CHF, COPD, DVT, diabetes, GERD, hyperlipidemia, hypertension, migraine, osteoporosis, renal disease, thyroid disease Surgical history: Reports: appendectomy, hysterectomy, orthopedic, other, IVC filter Psychiatric history: Reports: anxiety, depression [employer] history: Reports: bilateral 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 - Social History Smoking Status: Former smoker Smokeless Tobacco Status: No Alcohol use: Reports: none Drug use: Reports: none Physical Exam General: Alert and in no acute distress. BMI of 55 Skin: Warm, dry, intact Head: Normocephalic and atraumatic Neck: Supple, trachea midline and no tenderness Cardiovascular: RRR, no murmur, normal perfusion Respiratory: CTAB, no wheezing, cough, or respiratory distress Musculoskeletal: Normal strength, no tenderness, swelling or deformity GI: Soft, mild tenderness to palpation in the right and left lower quadrants which patient states is chronic, nondistended. Bowel sounds present Neuro: A&O to person, place, time and situation. No focal deficits noted on exam - General Limitations: no limitations General appearance: alert, in no apparent distress Course Vital Signs Temperature 97.9 F 09/23/17 08:08 Pulse Rate 80 09/23/17 08:08 Respiratory Rate 15 09/23/17 08:08 Blood Pressure 212/85 09/23/17 08:08 O2 Sat by Pulse Oximetry 98 09/23/17 08:08 Temperature 97.7 F 09/24/17 07:55 Pulse Rate 83 09/24/17 07:55 Respiratory Rate 18 09/24/17 07:55 Blood Pressure 95/61 09/24/17 07:55 O2 Sat by Pulse Oximetry 97 09/24/17 07:55 Oxygen Delivery Oxygen Delivery Nasal Cannula Medical Decision Making - MDM Narrative Medical decision making narrative: Dialysis catheter was flushed in the emergency department without difficulty. I spoke with Dr. Jeffries who recommended that the patient would likely need to be admitted for further care and evaluation of the dialysis catheter by interventional radiology. Patient takes Coumadin and will likely need her INR to be decreased prior to the procedure. Patient admitted to the hospitalist in stable condition. - Medical Records Medical records reviewed: Yes I reviewed the patient's medical records. - Lab Data Lab results reviewed: Yes I reviewed the patient's lab results. Result diagrams: 09/24/17 04:17 09/24/17 04:17 Lab Results 09/23/17 09/23/17 09/23/17 Range/Units 09:25 09:25 09:25 WBC 5.3 (4.3-11.1) K/mcL RBC 3.66 L (3.82-4.97) M/mcL Hgb 10.8 L (11.5-15.4) g/dL Hct 35.2 L (35.3-44.9) % MCV 96.2 (83.0-100.0) fL MCH 29.5 (28.0-33.3) pg MCHC 30.7 L (31.6-35.5) g/dL RDW 17.4 H (11.5-14.5) % Plt Count 194 (140-400) K/mcL MPV 10.8 (9.4-12.4) fL Immature Gran % 0.6 (0-4) % Seg Neutrophils % 65.1 % Lymphocytes % 22.0 % Monocytes % 7.0 % Eosinophils % 4.5 % Basophils % 0.8 % Neutrophils # 3.5 (1.6-8.9) K/mcL Lymphocytes # 1.2 (0.6-4.6) K/mcL Monocytes # 0.4 (0.0-1.3) K/mcL Eosinophils # 0.2 (0.0-0.6) K/mcL Basophils # 0.0 (0.0-0.2) K/mcL PT 12.5 H (9.4-12.1) Seconds INR 1.1 APTT 52.5 H (26.0-36.0) Seconds Sodium 133 L (136-145) mEq/L Potassium 4.5 (3.5-5.1) mEq/L Chloride 99 (98-107) mEq/L Carbon Dioxide 23 (23-29) mEq/L BUN 38 H (8-23) mg/dL Creatinine 3.15 H (0.60-1.20) mg/dL Est GFR ( Amer) 18 L (> 60) Est GFR (Non-Af Amer) 15 L (> 60) BUN/Creatinine Ratio 12 (6-26) Glucose 453 H (70-105) mg/dL Calculated Osmolality 305 H (280-300) Calcium 8.8 (8.6-10.3) mg/dL
[2017-09-23 09:35] LABS: Basophils % 0.8 %; Eosinophils # 0.2 K/mcL (0.0-0.6); Eosinophils % 4.5 %; Hematocrit 35.2 % (35.3-44.9); Hemoglobin 10.8 g/dL (11.5-15.4); Immature Granulocytes % 0.6 % (0-4); Lymphocytes # 1.2 K/mcL (0.6-4.6); Mean Corpuscular HGB Conc 30.7 g/dL (31.6-35.5); Mean Corpuscular Hemoglobin 29.5 pg (28.0-33.3); Mean Corpuscular Volume 96.2 fL (83.0-100.0); Mean Platelet Volume 10.8 fL (9.4-12.4); Monocytes # 0.4 K/mcL (0.0-1.3); Neutrophils # 3.5 K/mcL (1.6-8.9); Platelet Count 194 K/mcL (140-400); Red Blood Count 3.66 M/mcL (3.82-4.97); Red Cell Distribution Width 17.4 % (11.5-14.5); Segmented Neutrophils % 65.1 %
[2017-09-23 09:42] LABS: INR 1.1; Prothrombin Time 12.5 Seconds (9.4-12.1)
[2017-09-23 09:45] LABS: Activated Partial Thrombo Time 52.5 Seconds (26.0-36.0)
[2017-09-23 09:58] LABS: Calcium 8.8 mg/dL (8.6-10.3); Potassium 4.5 mEq/L (3.5-5.1)
[2017-09-23] MEDS ORDERED: Naloxone 0.4 MG/ML INJ IVP PRN (10:05)
[2017-09-23] MEDS ORDERED: Acetaminophen 325 MG TABLET PO PRN (10:05)
[2017-09-23] MEDS ORDERED: *HR* Dextrose 50 % in Water (Syg) 50 ML SYRINGE IVP PRN (10:21)
[2017-09-23] MEDS ORDERED: D5% in Water 1,000 ML IVC PRN (10:21)
[2017-09-23] MEDS ORDERED: Dextrose Gel 15 GM/37.5 ML TUBE PO PRN ×2 (10:21)
--- NOTE | 2017-09-23 10:31 | Internal Med History&Physical ---
Date of Encounter: 09/23/17 Time of Encounter: 09:00 Internal Medicine - H&P: HPI Chief complaint: Malfunction of hemodialysis catheter Admitted From: Home Plans for Post Hospital Care: Home History of present illness: Ms. Mars is a 62 year old female present to ER for malfunction of hemodialysis catheter. Past medical history is significant for diabetes, end- stage renal disease on dialysis, hypertension, COPD, CHF, diabetes, RUPERT, morbid obesity, DVT on Coumadin. Patient was started hemodialysis since 3 months ago and still makes urine by herself. Patient's dialysis catheter does not work well since Friday. Patient had 1.5 hours of hemodialysis on Friday. Today, she only has 20 minutes dialysis and catheter does not work again. Patient denies worsening shortness of breath, chest pain, worsening nausea. Chest x-ray does not shows pulmonary edema. Patient was sent to ER by nephrology for catheter replacement. Patient was admitted for hemodialysis catheter malfunction and missing hemodialysis. Past Med Surg Social Fam HX - Past Medical History Medical history: arthritis, CHF, COPD, DVT, diabetes, GERD, hyperlipidemia, hypertension, migraine, osteoporosis, renal disease, thyroid disease Additional medical history: dialysis 3 days a week Psychiatric history: anxiety, depression - Past Surgical History Surgical History: appendectomy, hysterectomy, orthopedic, other, IVC filter Additional surgical history: carpal tunnel surgery left hand - Social History Smoking Status: Former smoker Smokeless Tobacco Status: No Alcohol use: none Drug use: none - Family History Father Living Status: Hx Family Cardiac Disorders: Yes Hx Family GI Disorders: No Hx Family Neurologic Disorders: Yes Mother Living Status: Hx Family Cardiac Disorders: Yes Hx Family Cancer: Yes Hx Family GI Disorders: No Hx Family Endocrine Disorder: Yes (DIABETES MELLITUS.) Internal Medicine - H&P: Meds Meclizine [Antivert] 25 mg PO TID 09/12/14 [History] Allopurinol [Zyloprim 100 MG] 100 mg PO DAILY 03/22/15 [History] DiphenhydraMINE [Benadryl] 25 mg PO TID 03/22/15 [History] Exenatide Microspheres [Bydureon Pen] 2 mg SQ WE 03/22/15 [History] Lidocaine Patch [Lidoderm 5% patch] 1 - 3 patch TP DAILY 03/22/15 [History] Nitroglycerin [Nitrostat] 0.4 mg SL Q5M PRN 03/22/15 [History] Promethazine [Phenergan] 25 mg PO TID 03/22/15 [History] clonazePAM [Klonopin] 1 mg PO HS 03/22/15 [History] Albuterol Neb [AccuNeb] 1.25 mg IH QID 05/06/16 [History] Nystatin POWDER [Nystop] 1 appl TP QID 05/06/16 [History] Rosuvastatin [Crestor] 20 mg PO HS 05/06/16 [History] Acetaminophen [Tylenol] 650 mg PO Q4-6H PRN 11/10/16 [History] Omeprazole [PriLOSEC] 40 mg PO DAILY 11/10/16 [History] Potassium Chloride [Klor-Con 10] 10 meq PO BID 11/11/16 [History] Gabapentin [Neurontin] 100 mg PO TID #90 capsule 11/27/16 [Rx] Albuterol Sulfate [Ventolin Hfa] 2 puff IH Q4H PRN 08/12/17 [History] Calcium Acetate [Phos-LO] 1,334 mg PO TID 08/12/17 [History] Cyclobenzaprine [Flexeril] 10 mg PO TID 08/12/17 [History] Docusate [Colace] 100 mg PO TID 08/12/17 [History] Doxepin HCl 50 mg PO HS 08/12/17 [History] Furosemide [Lasix] 20 mg PO BID 08/12/17 [History] Insulin ASPART [Novolog Flexpen] 32 unit SQ TIDAC 08/12/17 [History] Levothyroxine Sodium [Levoxyl] 125 mcg PO QAM 08/12/17 [History] Metoprolol XL (24 HR) Succ [Toprol Xl] 25 mg PO DAILY 08/12/17 [History] Warfarin [Coumadin] 5 mg PO DAILY 08/12/17 [History] hydrOXYzine HCl [Hydroxyzine HCl] 25 mg PO TID 08/12/17 [History] Isosorbide MONOnitrate (24 HR) [Imdur] 120 mg PO QPM 30 Days #30 tab.er.24h 05/28 [Rx] amLODIPine [Norvasc] 2.5 mg PO DAILY #30 tablet 09/04/17 [Rx] Ergocalciferol (VITAMIN D2) [Vitamin D2] 50,000 unit PO QWEEK 09/23/17 [History] Furosemide [Lasix] 20 mg PO QPM 09/23/17 [History] Furosemide [Lasix] 40 mg PO HS 09/23/17 [History] Insulin Glargine,Hum.rec.anlog [Lantus Solostar] 100 unit SQ BID 09/23/17 [ History] 3 Allergy/AdvReac Type Severity Reaction Status Date / Time aspirin Allergy Hives Verified 09/23/17 10:21 cephalexin [From Keflex] Allergy Difficulty Verified 09/23/17 10:21 Breathing Cortisone Allergy See Verified 09/23/17 10:21 Comments ibuprofen Allergy Hives Verified 09/23/17 10:21 Iodinated Contrast- Oral and Allergy See Verified 09/23/17 10:21 IV Dye Comments [Iodinated Contrast Media - IV Dye] lidocaine [From Xylocaine] Allergy See Verified 09/23/17 10:21 Comments loratadine [From Claritin] Allergy Hives Verified 09/23/17 10:21 Penicillins Allergy See Verified 09/23/17 10:21 Comments Procaine [From Novocain] Allergy See Verified 09/23/17 10:21 Comments propoxyphene [From Darvon] Allergy See Verified 09/23/17 10:21 Comments pseudoephedrine Allergy Hives Verified 09/23/17 10:21 [From Sudafed] ropinirole [From Requip] Allergy See Verified 09/23/17 10:21 Comments codeine AdvReac Hypertensio Verified 09/23/17 10:21 n hydrocortisone AdvReac Hypertensio Verified 09/23/17 10:21 n methylprednisolone AdvReac Hypertensio Verified 09/23/17 10:21 [From Solu-Medrol] n prednisone AdvReac Hypertensio Verified 09/23/17 10:21 n tramadol AdvReac See Verified 09/23/17 10:21 Comments All Systems PM: A 10-system review of systems was performed and is negative for pertinent findings except as documented above in the HPI. - Constitutional Vitals: Temp Pulse Resp BP Pulse Ox 97.9 F 80 15 212/85 98 09/23/17 08:35 09/23/17 08:35 09/23/17 08:35 09/23/17 08:35 09/23/17 08:35 General appearance: Present: A&O X 3, morbidly obese, no acute distress, answers questions appropriately Exam: Patient is in no acute distress - Head Head exam: Present: atraumatic, normocephalic - Eye Eye exam: Present: PERRL, conjuntiva pink, sclera anicteric Pupils: Present: PERRL - Neck Neck exam general surgery: Present: supple, trachea midline. Absent: lymphadenopathy - Respiratory Respiratory exam: Present: CTAB. Absent: accessory muscle use, rales, rhonchi, wheezes - Cardiovascular Cardiovascular exam: Present: RRR, +S1, +S2. Absent: diastolic murmur, gallop, rubs, systolic murmur - GI/Abdominal GI/Abdominal exam: Present: normal bowel sounds, soft, no peritoneal signs. Absent: distended, tenderness - Extremities Exam Extremities exam: Present: pedal edema (Bilateral pedal edema), warm, radial pulses palpable and symmetrical. Absent: calf tenderness, cyanotic - Neurological Exam Neurological exam: Present: CN II-XII intact, oriented X3, no focal deficits. Absent: pronater drift, facial droop, speech deficit - Skin Skin exam: Present: dry, intact Internal Med - H&P Results - Labs CBC & Chem 7: 09/23/17 09:25 09/23/17 09:25 - Impressions ITS Impressions Chest X-Ray 09/23/17 09:49 IMPRESSION: Stable chest. No acute cardiopulmonary abnormality. Right IJ catheter tip in the SVC. D/ / Ruthie Gaytan MD / Ruthie Gaytan MD Interpreting Provider: Ruhtie Gaytan MD - Assessment and plan (1) Hemodialysis catheter malfunction Current Visit: Yes Status: Acute Assessment and plan: Patient needs a new catheter for hemodialysis. Interventional radiology was called and plan to replace the catheter today. Qualifiers: Encounter type: initial encounter Qualified Code(s): T82.41XA - Breakdown ( mechanical) of vascular dialysis catheter, initial encounter (2) DVT prophylaxis Current Visit: No Status: Acute Assessment and plan: Patient is on Coumadin. (3) CHF (congestive heart failure) Current Visit: No Status: Chronic Assessment and plan: Continue home medications. Continue hemodialysis to reduce whole-body volume Qualifiers: Qualified Code(s): I50.33 - Acute on chronic diastolic (congestive) heart failure (4) COPD (chronic obstructive pulmonary disease) Current Visit: No Status: Chronic Assessment and plan: No wheezing at this point. Continue bronchodilator as needed Qualifiers: COPD type: chronic bronchitis Chronic bronchitis type: simple Qualified Code(s): J41.0 - Simple chronic bronchitis (5) History of DVT (deep vein thrombosis) Current Visit: No Status: Chronic Assessment and plan: Patient is on Coumadin. Patient is not compliant with Coumadin and missing several doses. Patient also has IVC filter placed. Will continue Coumadin, pharmacy to dose. Compliance education, continue closely follow-up as outpatient. (6) Hypertension Current Visit: No Status: Chronic Assessment and plan: Continue home medications after verification. Hydralazine IV as needed at this point Qualifiers: Hypertension type: essential hypertension Qualified Code(s): I10 - Essential (primary) hypertension (7) Morbid obesity Current Visit: No Status: Chronic Assessment and plan: Need lifestyle modification as outpatient. (8) RUPERT (obstructive sleep apnea) Current Visit: No Status: Chronic Assessment and plan: Continue CPAP during. However, patient admits she is not compliant with CPAP. Place patient on continuous pulse oximetry monitoring. (9) Type 2 diabetes mellitus Current Visit: No Status: Chronic Assessment and plan: Poorly controlled diabetes, continue basal and sliding scale insulin coverage and closely monitor glucose level Qualifiers: Diabetes mellitus fci insulin use: with fci use Diabetes mellitus complication status: with neurologic complications Diabetes mellitus complication detail: with polyneuropathy Qualified Code(s): E11.42 - Type 2 diabetes mellitus with diabetic polyneuropathy; Z79.4 - FCI (current) use of insulin - Time Spent With Patient Total time spent is greater than 50% in coordination of care (as documented) at patient's floor/unit and/or counseling patient: 40 minutes Greater than 35 minutes
[2017-09-23] MEDS ORDERED: Nitroglycerin 0.4 MG TAB.SUBL SL PRN (10:49)
[2017-09-23] MEDS ORDERED: hydrOXYzine pamoate 25 MG CAPSULE PO PRN (10:49)
[2017-09-23] MEDS ORDERED: Heparin 1,000 UNITS/500 mL 500 ML ONE (10:55)
[2017-09-23] MEDS ORDERED: *HR* Heparin 5,000 UNIT/ML VIAL ONE (11:57)
--- NOTE | 2017-09-23 12:03 | IR Procedure Note ---
Date of procedure: 09/23/17 Consent Obtained: Written consent Timeout: Correct patient and procedure verified, Correct site verified, Time out performed, Skin prep completed Local anesthetic: Lidocaine 1% Indications: Renal insufficiency, poorly functioning catheter Procedure Performed: Catheter exchange, fibrin sheath disruption Was there an personal assistant present: No Site/Technique: Right chest, RIJV used for access originally Results/Findings: 12mm balloon used for disruption. Catheter ok to use. Estimated blood loss (cc): 3 Complications: None; Tolerated procedure well Post Procedure Treatment Plan: Monitoring in pts room Specimen: n/a
[2017-09-23] MEDS ORDERED: Clindamycin 600 MG/50 ML 600 MG/50 ML IV.SOLN IVPB STA (12:06)
[2017-09-23] MEDS ORDERED: Albuterol Neb 1.25 MG/3 ML VIAL IH SCH (13:00)
--- NOTE | 2017-09-23 13:00 | Nephrology Consult Note ---
<Sherlyn Jerez - Last Filed: 09/23/17 13:53> Date of Encounter: 09/23/17 Time of Encounter: 12:44 Assessment and Plan (1) Hemodialysis catheter malfunction Status: Acute IR placed new tunneled line today. It can be used today for HD. Qualifiers: Encounter type: initial encounter Qualified Code(s): T82.41XA - Breakdown ( mechanical) of vascular dialysis catheter, initial encounter (2) ESRD (end stage renal disease) on dialysis Status: Acute Current regimen is TTS at [facility]. HD ordered for today. Avoid nephrotoxins and renal dose all medications. Renal diet. (3) HTN (hypertension) Status: Acute Home medications continued. Qualifiers: Qualified Code(s): I10 - Essential (primary) hypertension History of Present Illness - Reason for Consult Consult date: 09/23/17 end stage renal disease - Chief Complaint non-functioning Tunneled Line - History of Present Illness Ms. Mars is a 62 year old female with PMH: HTN, HLD, DM, GERD, fatty liver, hypothyroidism, COPD, previous DVTs, obesity, ESRD on HD. Current regimen is TTS at [facility]. She presented to the ED for assistance with her Tunneled HD line it was not functioning properly. Her last full tx was and only ran a short time on Friday. From the ED she went to IR and had a new Tunneled Line placed. Denies CP/SOB. Denies nausea/vomiting/diarrhea. She lives at home with her . Denies tobacco use, etoh, and drug use. Past Med Surg Social Fam HX - Past Medical History Medical history: arthritis, CHF, COPD, DVT, diabetes, GERD, hyperlipidemia, hypertension, migraine, osteoporosis, renal disease, thyroid disease Additional medical history: dialysis 3 days a week Psychiatric history: anxiety, depression - Past Surgical History Surgical History: appendectomy, hysterectomy, orthopedic, other, IVC filter Additional surgical history: carpal tunnel surgery left hand - Social History Smoking Status: Former smoker Smokeless Tobacco Status: No Alcohol use: none Drug use: none - Family History Father Living Status: Hx Family Cardiac Disorders: Yes Hx Family GI Disorders: No Hx Family Neurologic Disorders: Yes Mother Living Status: Hx Family Cardiac Disorders: Yes Hx Family Cancer: Yes Hx Family GI Disorders: No Hx Family Endocrine Disorder: Yes (DIABETES MELLITUS.) Medications and Allergies Meclizine [Antivert] 25 mg PO TID 09/12/14 [History] Allopurinol [Zyloprim 100 MG] 100 mg PO DAILY 03/22/15 [History] DiphenhydraMINE [Benadryl] 25 mg PO TID 03/22/15 [History] Exenatide Microspheres [Bydureon Pen] 2 mg SQ WE 03/22/15 [History] Lidocaine Patch [Lidoderm 5% patch] 1 patch TP DAILY 03/22/15 [History] Nitroglycerin [Nitrostat] 0.4 mg SL Q5M PRN 03/22/15 [History] Promethazine [Phenergan] 25 mg PO TID 03/22/15 [History] clonazePAM [Klonopin] 1 mg PO HS 03/22/15 [History] Albuterol Neb [AccuNeb] 1.25 mg IH QID 05/06/16 [History] Nystatin POWDER [Nystop] 1 appl TP BID 05/06/16 [History] Rosuvastatin [Crestor] 20 mg PO HS 05/06/16 [History] Acetaminophen [Tylenol] 650 mg PO Q4-6H PRN 11/10/16 [History] Omeprazole [PriLOSEC] 40 mg PO DAILY 11/10/16 [History] Potassium Chloride [Klor-Con 10] 10 meq PO BID 11/11/16 [History] Gabapentin [Neurontin] 100 mg PO TID #90 capsule 11/27/16 [Rx] Albuterol Sulfate [Ventolin Hfa] 2 puff IH Q4H PRN 08/12/17 [History] Calcium Acetate [Phos-LO] 1,334 mg PO TID 08/12/17 [History] Cyclobenzaprine [Flexeril] 10 mg PO TID 08/12/17 [History] Docusate [Colace] 100 mg PO TID 08/12/17 [History] Doxepin HCl 50 mg PO HS 08/12/17 [History] Furosemide [Lasix] 40 mg PO QAM 08/12/17 [History] Insulin ASPART [Novolog Flexpen] 32 unit SQ TIDAC 08/12/17 [History] Levothyroxine Sodium [Levoxyl] 250 mcg PO QAM 08/12/17 [History] Metoprolol XL (24 HR) Succ [Toprol Xl] 25 mg PO DAILY 08/12/17 [History] Warfarin [Coumadin] 5 mg PO DAILY 08/12/17 [History] hydrOXYzine HCl [Hydroxyzine HCl] 25 mg PO TID PRN 08/12/17 [History] Isosorbide MONOnitrate (24 HR) [Imdur] 120 mg PO QPM 30 Days #30 tab.er.24h 05/28 [Rx] amLODIPine [Norvasc] 2.5 mg PO DAILY #30 tablet 09/04/17 [Rx] Ergocalciferol (VITAMIN D2) [Vitamin D2] 50,000 unit PO QWEEK 09/23/17 [History] Furosemide [Lasix] 20 mg PO QPM 09/23/17 [History] Furosemide [Lasix] 40 mg PO HS 09/23/17 [History] Insulin Glargine,Hum.rec.anlog [Lantus Solostar] 100 unit SQ BID 09/23/17 [ History] 3 Allergy/AdvReac Type Severity Reaction Status Date / Time aspirin Allergy Hives Verified 09/23/17 10:21 cephalexin [From Keflex] Allergy Difficulty Verified 09/23/17 10:21 Breathing Cortisone Allergy See Verified 09/23/17 10:21 Comments ibuprofen Allergy Hives Verified 09/23/17 10:21 Iodinated Contrast- Oral and Allergy See Verified 09/23/17 10:21 IV Dye Comments [Iodinated Contrast Media - IV Dye] lidocaine [From Xylocaine] Allergy See Verified 09/23/17 10:21 Comments loratadine [From Claritin] Allergy Hives Verified 09/23/17 10:21 Penicillins Allergy See Verified 09/23/17 10:21 Comments Procaine [From Novocain] Allergy See Verified 09/23/17 10:21 Comments propoxyphene [From Darvon] Allergy See Verified 09/23/17 10:21 Comments pseudoephedrine Allergy Hives Verified 09/23/17 10:21 [From Sudafed] ropinirole [From Requip] Allergy See Verified 09/23/17 10:21 Comments acetaminophen AdvReac See Verified 09/23/17 14:23 Comments albuterol AdvReac Shakiness Verified 09/23/17 14:11 calcium AdvReac See Verified 09/23/17 14:13 Comments ceftriaxone [From Rocephin] AdvReac See Verified 09/23/17 14:23 Comments clindamycin AdvReac Hypotension Verified 09/23/17 14:13 codeine AdvReac Hypertensio Verified 09/23/17 10:21 n doxycycline AdvReac See Verified 09/23/17 14:15 Comments famotidine AdvReac See Verified 09/23/17 14:15 Comments hydrocodone AdvReac See Verified 09/23/17 14:16 Comments hydrocortisone AdvReac Hypertensio Verified 09/23/17 10:21 n ipratropium AdvReac See Verified 09/23/17 14:23 Comments methylprednisolone AdvReac Hypertensio Verified 09/23/17 10:21 [From Solu-Medrol] n Neomycin AdvReac See Verified 09/23/17 14:23 Comments NSAIDS (Non-Steroidal AdvReac See Verified 09/23/17 14:23 Anti-Inflamma Comments prednisone AdvReac Hypertensio Verified 09/23/17 10:21 n Sulfa (Sulfonamide AdvReac See Verified 09/23/17 14:23 Antibiotics) Comments terfenadine AdvReac See Verified 09/23/17 14:23 Comments tramadol AdvReac See Verified 09/23/17 10:21 Comments Review of Systems ROS unobtainable: other (as per HPI) Exam - Vital Signs Vital signs: Initial Vital Signs Temp Pulse Resp BP Pulse Ox 97.9 F 80 15 212/85 98 09/23/17 08:08 09/23/17 08:08 09/23/17 08:08 09/23/17 08:08 09/23/17 08:08 Vital Signs - Last 8 Hours Pulse Resp BP Pulse Ox 09/23/17 10:36 78 18 190/108 97 - General Appearance General appearance: well-developed, well-nourished, obese EENT: ATNC, hearing intact, vision intact Neck: supple Respiratory: clear Cardiology: edema (trace bilat lower extremity edema to bilat lower extremities. ), normal S1, normal S2 - Dialysis Access Dialysis Vascular Access: Venous Catheter (Tunneled Line, DRSG C/D/I.) Gastrointestinal: normoactive bowel sounds, no tenderness, no guarding Integumentary: no rash, warm and dry Neurologic: alert and oriented x3 Psychiatric: mood/affect appropriate, cooperative Results - Lab Results 09/23/17 09:25 09/23/17 09:25 Most recent lab results Calcium 8.8 mg/dL (8.6-10.3) 09/23/17 09:25 Consult Discharge Plan - Plan Instructions: Chronic Kidney Disease (GEN), Cellulitis (DC), Tunneled Central Lines Adult (DC) Referrals: Mauro Dockery MD [Primary Care Provider] - 09/29/17 8:45 am (Please follow up as schedule...) <Ovidio Pearl Nesha - Last Filed: 09/29/17 06:51> Date of Encounter: 09/23/17 Assessment and Plan (1) ESRD (end stage renal disease) on dialysis Status: Acute (2) Hemodialysis catheter malfunction Status: Acute Qualifiers: Encounter type: initial encounter Qualified Code(s): T82.41XA - Breakdown ( mechanical) of vascular dialysis catheter, initial encounter (3) HTN (hypertension) Status: Acute Qualifiers: Qualified Code(s): I10 - Essential (primary) hypertension Exam - Vital Signs Vital signs: Initial Vital Signs Temp Pulse Resp BP Pulse Ox 97.9 F 80 15 212/85 98 09/23/17 08:08 09/23/17 08:08 09/23/17 08:08 09/23/17 08:08 09/23/17 08:08 Results - Lab Results 09/24/17 04:17 09/24/17 04:17 Most recent lab results Calcium 8.7 mg/dL (8.6-10.3) 09/24/17 04:17 Magnesium 1.6 mg/dL (1.6-2.6) 09/24/17 04:17 - Attending Attestation I examined this patient and my medical decision-making was reviewed with the Resident Physician/[employer]PH[employer] OPERATOR. I agree with the documented findings, disposition and treatment plan as described except to the extent set forth below. 62 y o female with PMH of ESRD on TTS admitted with permcath malfunction. Last HD was last and was unable to dialyze friday nor today at the HD unit. Of note, pt is on anticoag as well. on exam lungs are clear with heart S1S2 present and trace LE edema bilat noted. given inr WNL despite anticoag, will have IR place new permcath andplan HD afterwards.
[2017-09-23] MEDS: Insulin DETEMIR 100 UNIT/ML X5UNITS SQ SCH ×2 (13:38→21:58)
[2017-09-23] MEDS: Metoprolol XL (24 HR) Succ 50 MG TAB.ER.24H PO SCH (13:46)
[2017-09-23] MEDS ORDERED: 0.9 % Sodium Chloride 1,000 ML ONE (13:46)
[2017-09-23] MEDS: amLODIPine 5 MG TABLET PO SCH (13:47)
[2017-09-23] MEDS: Insulin LISPRO 300 UNITS/3 ML VIAL SQ SCH ×2 (13:48→19:07)
[2017-09-23] MEDS ORDERED: *HR* Heparin 10,000 UNIT/10 ML VIAL IV PRN (14:21)
[2017-09-23] MEDS ORDERED: 0.9 % Sodium Chloride 250 ML IVC PRN (14:21)
[2017-09-23] MEDS ORDERED: 0.9 % Sodium Chloride 1,000 ML PRIME SCH (14:30)
[2017-09-23] MEDS ORDERED: Calcium Acetate 667 MG CAPSULE PO SCH (15:00)
[2017-09-23] MEDS ORDERED: Levofloxacin 500 MG/100 ML 500 MG/100 ML BAG IVPB ONE (15:54)
[2017-09-23] MEDS ORDERED: Furosemide 20 MG TABLET PO SCH ×2 (18:00→21:00)
[2017-09-23] MEDS ORDERED: Warfarin perPT PO PRN (18:00)
[2017-09-23] MEDS ORDERED: *HR* Warfarin 5 MG TABLET PO ONE (18:00)
[2017-09-23] MEDS ORDERED: Isosorbide MONOnitrate (24 HR) 60 MG TAB.ER.24H PO SCH (18:00)
[2017-09-23] MEDS: Calcium Acetate 667 MG CAPSULE PO SCH (19:00)
[2017-09-23] MEDS: Gabapentin 100 MG CAPSULE PO SCH ×2 (19:03→22:02)
[2017-09-23] MEDS ORDERED: Insulin LISPRO 300 UNITS/3 ML VIAL SQ SCH (21:00)
[2017-09-23] MEDS ORDERED: clonazePAM 1 MG TABLET PO SCH (21:00)
[2017-09-23] MEDS: Nystatin POWDER 30 GM BOTTLE TP SCH (22:05)
[2017-09-24 04:36] LABS: Basophils % 0.5 %; Eosinophils # 0.2 K/mcL (0.0-0.6); Eosinophils % 2.5 %; Hematocrit 30.7 % (35.3-44.9); Hemoglobin 9.4 g/dL (11.5-15.4); Immature Granulocytes % 0.7 % (0-4); Lymphocytes # 1.5 K/mcL (0.6-4.6); Mean Corpuscular HGB Conc 30.6 g/dL (31.6-35.5); Mean Corpuscular Hemoglobin 29.3 pg (28.0-33.3); Mean Corpuscular Volume 95.6 fL (83.0-100.0); Mean Platelet Volume 10.6 fL (9.4-12.4); Monocytes # 0.5 K/mcL (0.0-1.3); Monocytes % 8.7 %; Neutrophils # 3.7 K/mcL (1.6-8.9); Platelet Count 178 K/mcL (140-400); Red Blood Count 3.21 M/mcL (3.82-4.97); Red Cell Distribution Width 17.6 % (11.5-14.5); Segmented Neutrophils % 62.6 %
[2017-09-24 04:41] LABS: INR 1.2; Prothrombin Time 13.8 Seconds (9.4-12.1)
[2017-09-24 04:56] LABS: Calcium 8.7 mg/dL (8.6-10.3); Magnesium 1.6 mg/dL (1.6-2.6); Potassium 3.9 mEq/L (3.5-5.1)
[2017-09-24 07:56] VITALS: BP 95/61
[2017-09-24] MEDS: Calcium Acetate 667 MG CAPSULE PO SCH (08:12)
[2017-09-24] MEDS: Gabapentin 100 MG CAPSULE PO SCH (08:13)
[2017-09-24] MEDS: Insulin LISPRO 300 UNITS/3 ML VIAL SQ SCH (08:14)
[2017-09-24] MEDS: Insulin DETEMIR 100 UNIT/ML X5UNITS SQ SCH (08:16)
[2017-09-24] MEDS: amLODIPine 5 MG TABLET PO SCH (08:24)
[2017-09-24] MEDS: Nystatin POWDER 30 GM BOTTLE TP SCH (08:24)
[2017-09-24] MEDS: Metoprolol XL (24 HR) Succ 50 MG TAB.ER.24H PO SCH (08:24)
--- NOTE | 2017-09-24 08:50 | Discharge Summary ---
- NOTES TO OUTPATIENT PROVIDER Notes to Outpatient Provider: Follow uo with Renal Date of Encounter: 09/24/17 Time of Encounter: 08:45 - Discharge Diagnosis (1) Hemodialysis catheter malfunction Priority: Primary Status: Acute Assessment and Plan: 62 year old female presented to ER for malfunction of hemodialysis catheter. Past medical history is significant for diabetes, end-stage renal disease on dialysis, hypertension, COPD, CHF, diabetes, RUPERT, morbid obesity, DVT on Coumadin. Patient was started hemodialysis since 3 months ago and still makes urine by herself. Patient's dialysis catheter has not worked well since Friday. Patient needs a new catheter for hemodialysis. Interventional radiology was called and were successfully able to replace the catheter She underwent hemodialysis yesterday and tolerated dialysis well. She was discharged home in a stable condition today and will follow up with renal. Qualifiers: Encounter type: initial encounter Qualified Code(s): T82.41XA - Breakdown ( mechanical) of vascular dialysis catheter, initial encounter (2) Morbid obesity Priority: Primary Status: Chronic (3) DVT prophylaxis Priority: Secondary Status: Acute (4) Hypertension Priority: Secondary Status: Chronic Qualifiers: Hypertension type: essential hypertension Qualified Code(s): I10 - Essential (primary) hypertension (5) History of DVT (deep vein thrombosis) Priority: Secondary Status: Chronic (6) RUPERT (obstructive sleep apnea) Priority: Secondary Status: Chronic (7) Type 2 diabetes mellitus Priority: Secondary Status: Chronic Qualifiers: Diabetes mellitus penitentiary insulin use: with penitentiary use Diabetes mellitus complication status: with neurologic complications Diabetes mellitus complication detail: with polyneuropathy Qualified Code(s): E11.42 - Type 2 diabetes mellitus with diabetic polyneuropathy; Z79.4 - retirement (current) use of insulin (8) COPD (chronic obstructive pulmonary disease) Priority: Secondary Status: Chronic Qualifiers: COPD type: chronic bronchitis Chronic bronchitis type: simple Qualified Code(s): J41.0 - Simple chronic bronchitis Hospital course: Ms. Mars is a 62 year old female - Time Spent with Patient Total time spent providing and/or coordinating discharge services: - Discharge Medications Home Medications: Meclizine [Antivert] 25 mg PO TID 09/12/14 [History] Allopurinol [Zyloprim 100 MG] 100 mg PO DAILY 03/22/15 [History] DiphenhydraMINE [Benadryl] 25 mg PO TID 03/22/15 [History] Exenatide Microspheres [Bydureon Pen] 2 mg SQ WE 03/22/15 [History] Lidocaine Patch [Lidoderm 5% patch] 1 patch TP DAILY 03/22/15 [History] Nitroglycerin [Nitrostat] 0.4 mg SL Q5M PRN 03/22/15 [History] Promethazine [Phenergan] 25 mg PO TID 03/22/15 [History] clonazePAM [Klonopin] 1 mg PO HS 03/22/15 [History] Albuterol Neb [AccuNeb] 1.25 mg IH QID 05/06/16 [History] Nystatin POWDER [Nystop] 1 appl TP BID 05/06/16 [History] Rosuvastatin [Crestor] 20 mg PO HS 05/06/16 [History] Acetaminophen [Tylenol] 650 mg PO Q4-6H PRN 11/10/16 [History] Omeprazole [PriLOSEC] 40 mg PO DAILY 11/10/16 [History] Potassium Chloride [Klor-Con 10] 10 meq PO BID 11/11/16 [History] Gabapentin [Neurontin] 100 mg PO TID #90 capsule 11/27/16 [Rx] Albuterol Sulfate [Ventolin Hfa] 2 puff IH Q4H PRN 08/12/17 [History] Calcium Acetate [Phos-LO] 1,334 mg PO TID 08/12/17 [History] Cyclobenzaprine [Flexeril] 10 mg PO TID 08/12/17 [History] Docusate [Colace] 100 mg PO TID 08/12/17 [History] Doxepin HCl 50 mg PO HS 08/12/17 [History] Furosemide [Lasix] 40 mg PO QAM 08/12/17 [History] Insulin ASPART [Novolog Flexpen] 32 unit SQ TIDAC 08/12/17 [History] Levothyroxine Sodium [Levoxyl] 250 mcg PO QAM 08/12/17 [History] Metoprolol XL (24 HR) Succ [Toprol Xl] 25 mg PO DAILY 08/12/17 [History] Warfarin [Coumadin] 5 mg PO DAILY 08/12/17 [History] hydrOXYzine HCl [Hydroxyzine HCl] 25 mg PO TID PRN 08/12/17 [History] Isosorbide MONOnitrate (24 HR) [Imdur] 120 mg PO QPM 30 Days #30 tab.er.24h 05/28 [Rx] amLODIPine [Norvasc] 2.5 mg PO DAILY #30 tablet 09/04/17 [Rx] Ergocalciferol (VITAMIN D2) [Vitamin D2] 50,000 unit PO QWEEK 09/23/17 [History] Furosemide [Lasix] 20 mg PO QPM 09/23/17 [History] Furosemide [Lasix] 40 mg PO HS 09/23/17 [History] Insulin Glargine,Hum.rec.anlog [Lantus Solostar] 100 unit SQ BID 09/23/17 [ History] Allergies/Adverse Reactions: 3 Allergy/AdvReac Type Severity Reaction Status Date / Time aspirin Allergy Hives Verified 09/23/17 10:21 cephalexin [From Keflex] Allergy Difficulty Verified 09/23/17 10:21 Breathing Cortisone Allergy See Verified 09/23/17 10:21 Comments ibuprofen Allergy Hives Verified 09/23/17 10:21 Iodinated Contrast- Oral and Allergy See Verified 09/23/17 10:21 IV Dye Comments [Iodinated Contrast Media - IV Dye] lidocaine [From Xylocaine] Allergy See Verified 09/23/17 10:21 Comments loratadine [From Claritin] Allergy Hives Verified 09/23/17 10:21 Penicillins Allergy See Verified 09/23/17 10:21 Comments Procaine [From Novocain] Allergy See Verified 09/23/17 10:21 Comments propoxyphene [From Darvon] Allergy See Verified 09/23/17 10:21 Comments pseudoephedrine Allergy Hives Verified 09/23/17 10:21 [From Sudafed] ropinirole [From Requip] Allergy See Verified 09/23/17 10:21 Comments acetaminophen AdvReac See Verified 09/23/17 14:23 Comments albuterol AdvReac Shakiness Verified 09/23/17 14:11 calcium AdvReac See Verified 09/23/17 14:13 Comments ceftriaxone [From Rocephin] AdvReac See Verified 09/23/17 14:23 Comments clindamycin AdvReac Hypotension Verified 09/23/17 14:13 codeine AdvReac Hypertensio Verified 09/23/17 10:21 n doxycycline AdvReac See Verified 09/23/17 14:15 Comments famotidine AdvReac See Verified 09/23/17 14:15 Comments hydrocodone AdvReac See Verified 09/23/17 14:16 Comments hydrocortisone AdvReac Hypertensio Verified 09/23/17 10:21 n ipratropium AdvReac See Verified 09/23/17 14:23 Comments methylprednisolone AdvReac Hypertensio Verified 09/23/17 10:21 [From Solu-Medrol] n Neomycin AdvReac See Verified 09/23/17 14:23 Comments NSAIDS (Non-Steroidal AdvReac See Verified 09/23/17 14:23 Anti-Inflamma Comments prednisone AdvReac Hypertensio Verified 09/23/17 10:21 n Sulfa (Sulfonamide AdvReac See Verified 09/23/17 14:23 Antibiotics) Comments terfenadine AdvReac See Verified 09/23/17 14:23 Comments tramadol AdvReac See Verified 09/23/17 10:21 Comments Date of admission: 09/23/17 09:39 Primary care physician: Mauro Dockery MD Consults: 09/23/17 10:23 Consult to Interventional Radiology [CONS] Stat Consulting Provider: Radiology Interventional Cols Reason for Consult: Malfunction of HD catheter Call Completed: Yes 09/23/17 10:28 Consult to Nephrology [CONS] Routine Consulting Provider: Kidney Adriana/SANCHEZ/STEVEN/BABITA Reason for Consult: ESRD needs HD Call Completed: Yes 09/23/17 12:20 Consult to Invasive Line Access Team [CONS] Routine Reason for Consult: Limited access Line Type: EPIV 09/23/17 14:30 Consult to Dialysis [CONS] ONCE - Constitutional Vitals: Temp Pulse Resp BP Pulse Ox 97.7 F 83 18 95/61 97 09/24/17 07:55 09/24/17 07:55 09/24/17 07:55 09/24/17 07:55 09/24/17 07:55 General appearance: Present: A&O X 3, morbidly obese, no acute distress, answers questions appropriately - Head Head exam: Present: atraumatic, normocephalic - Eye Eye exam: Present: PERRL, conjuntiva pink, sclera anicteric Pupils: Present: PERRL - Neck Neck exam general surgery: Present: supple, trachea midline. Absent: lymphadenopathy - Respiratory Respiratory exam: Present: CTAB. Absent: accessory muscle use, rales, rhonchi, wheezes - Cardiovascular Cardiovascular exam: Present: RRR, +S1, +S2. Absent: diastolic murmur, gallop, rubs, systolic murmur - GI/Abdominal GI/Abdominal exam: Present: normal bowel sounds, soft, no peritoneal signs. Absent: distended, tenderness - Extremities Exam Extremities exam: Present: warm, radial pulses palpable and symmetrical. Absent : calf tenderness, cyanotic, pedal edema - Neurological Exam Neurological exam: Present: CN II-XII intact, oriented X3, no focal deficits. Absent: pronater drift, facial droop, speech deficit - Skin Skin exam: Present: dry, intact - Patient Status Disposition: Home, Self-Care Condition: Good - Discharge Instructions Instructions: Chronic Kidney Disease (GEN), Cellulitis (DC), Tunneled Central Lines Adult (DC) Follow Up With: Mauro Dockery MD [Primary Care Provider] - 09/29/17 8:45 am (Please follow up as schedule...)
[2017-09-24] MEDS ORDERED: Furosemide 20 MG TABLET PO SCH (09:00)
[2017-09-24] MEDS ORDERED: *HR* Warfarin 5 MG TABLET PO ONE (18:00)
== END 2017-09-24 10:03 | disposition home or self-care (01) ==
LOC: 2ANU 08:05 → EMEROOARM 08:05 → 2ANU 10:50
PROVIDERS: ADMIT Internal Medicine; ATTEND Internal Medicine

== ENCOUNTER 2017-10-10 07:07 | Observation (INO) ==
[2017-10-10] MEDS ORDERED: Nitroglycerin 0.4 MG TAB.SUBL SL ONE (07:14)
--- NOTE | 2017-10-10 07:17 | Emergency Department Note ---
Disposition Clinical Impression: Chest pain Qualifiers: Chest pain type: precordial pain Qualified Code(s): R07.2 - Precordial pain Fluid overload Qualifiers: Hypervolemia type: unspecified Qualified Code(s): E87.70 - Fluid overload, unspecified Pulmonary edema Qualifiers: Chronicity: acute Qualified Code(s): J81.0 - Acute pulmonary edema Disposition: Admitted As Inpatient Condition: Fair Referrals: Mauro Dockery MD [Primary Care Provider] - Forms: ED Satisfaction Letter Time of Disposition: 10:30 General Adult HPI - General Chief complaint: ED Chest Pain Stated complaint: left side chest pain Time Seen by Provider: 10/10/17 07:13 Source: patient Mode of arrival: EMS Limitations: no limitations - History of Present Illness HPI Narrative: This is a 62-year-old female brought in by EMS from dialysis. She was about 20 minutes into dialysis, which started about 90 minutes prior to arrival, when she developed left-sided chest pain with radiation to her left arm. The pain went down her left arm to the left elbow at that time. She said the left-sided chest pain gradually worsened, at which time she notified dialysis center staff. The pain is decreased some since it maximized. She reports some increased shortness of breath. - Related Data Home Medications Medication Instructions Recorded Confirmed Meclizine [Antivert] 25 mg PO TID 09/12/14 09/23/17 Allopurinol [Zyloprim 100 MG] 100 mg PO DAILY 03/22/15 09/23/17 DiphenhydraMINE [Benadryl] 25 mg PO TID 03/22/15 09/23/17 Exenatide Microspheres [Bydureon 2 mg SQ WE 03/22/15 09/23/17 Pen] Lidocaine Patch [Lidoderm 5% patch] 1 patch TP DAILY 03/22/15 09/23/17 Nitroglycerin [Nitrostat] 0.4 mg SL Q5M PRN 03/22/15 09/23/17 Promethazine [Phenergan] 25 mg PO TID 03/22/15 09/23/17 clonazePAM [Klonopin] 1 mg PO HS 03/22/15 09/23/17 Albuterol Neb [AccuNeb] 1.25 mg IH QID 05/06/16 09/23/17 Nystatin POWDER [Nystop] 1 appl TP BID 05/06/16 09/23/17 Rosuvastatin [Crestor] 20 mg PO HS 05/06/16 09/23/17 Acetaminophen [Tylenol] 650 mg PO Q4-6H PRN 11/10/16 09/23/17 Omeprazole [PriLOSEC] 40 mg PO DAILY 11/10/16 09/23/17 Potassium Chloride [Klor-Con 10] 10 meq PO BID 11/11/16 09/23/17 Albuterol Sulfate [Ventolin Hfa] 2 puff IH Q4H PRN 08/12/17 09/23/17 Calcium Acetate [Phos-LO] 1,334 mg PO TID 08/12/17 09/23/17 Cyclobenzaprine [Flexeril] 10 mg PO TID 08/12/17 09/23/17 Docusate [Colace] 100 mg PO TID 08/12/17 09/23/17 Doxepin HCl 50 mg PO HS 08/12/17 09/23/17 Furosemide [Lasix] 40 mg PO QAM 08/12/17 09/23/17 Insulin ASPART [Novolog Flexpen] 32 unit SQ TIDAC 08/12/17 09/23/17 Levothyroxine Sodium [Levoxyl] 250 mcg PO QAM 08/12/17 09/23/17 Metoprolol XL (24 HR) Succ [Toprol 25 mg PO DAILY 08/12/17 09/23/17 Xl] Warfarin [Coumadin] 5 mg PO DAILY 08/12/17 09/23/17 hydrOXYzine HCl [Hydroxyzine HCl] 25 mg PO TID PRN 08/12/17 09/23/17 Ergocalciferol (VITAMIN D2) 50,000 unit PO QWEEK 09/23/17 09/23/17 [Vitamin D2] Furosemide [Lasix] 20 mg PO QPM 09/23/17 09/23/17 Furosemide [Lasix] 40 mg PO HS 09/23/17 09/23/17 Insulin Glargine,Hum.rec.anlog 100 unit SQ BID 09/23/17 09/23/17 [Lantus Solostar] Previous Rx's Medication Instructions Recorded Gabapentin [Neurontin] 100 mg PO TID #90 capsule 10/18/17 Isosorbide MONOnitrate (24 HR) 120 mg PO QPM 30 Days #30 08/13/17 [Imdur] tab.er.24h amLODIPine [Norvasc] 2.5 mg PO DAILY #30 tablet 09/04/17 Allergies Allergy/AdvReac Type Severity Reaction Status Date / Time aspirin Allergy Hives Verified 10/09/17 06:39 cephalexin [From Keflex] Allergy Difficulty Verified 10/09/17 06:39 Breathing Cortisone Allergy See Verified 10/09/17 06:39 Comments diphenhydramine Allergy Itching Verified 10/09/17 06:39 [From Benadryl] ibuprofen Allergy Hives Verified 10/09/17 06:39 Iodinated Contrast- Oral and Allergy See Verified 10/09/17 06:39 IV Dye Comments [Iodinated Contrast Media - IV Dye] lidocaine [From Xylocaine] Allergy See Verified 10/09/17 06:39 Comments loratadine [From Claritin] Allergy Hives Verified 10/09/17 06:39 Penicillins Allergy See Verified 10/09/17 06:39 Comments Procaine [From Novocain] Allergy See Verified 10/09/17 06:39 Comments propoxyphene [From Darvon] Allergy See Verified 10/09/17 06:39 Comments pseudoephedrine Allergy Hives Verified 10/09/17 06:39 [From Sudafed] ropinirole [From Requip] Allergy See Verified 10/09/17 06:39 Comments acetaminophen AdvReac See Verified 10/09/17 06:39 Comments albuterol AdvReac Shakiness Verified 10/09/17 06:39 calcium AdvReac See Verified 10/09/17 06:39 Comments ceftriaxone [From Rocephin] AdvReac See Verified 10/09/17 06:39 Comments clindamycin AdvReac Hypotension Verified 10/09/17 06:39 codeine AdvReac Hypertensio Verified 10/09/17 06:39 n doxycycline AdvReac See Verified 10/09/17 06:39 Comments famotidine AdvReac See Verified 10/09/17 06:39 Comments hydrocodone AdvReac See Verified 10/09/17 06:39 Comments hydrocortisone AdvReac Hypertensio Verified 10/09/17 06:39 n ipratropium AdvReac See Verified 10/09/17 06:39 Comments methylprednisolone AdvReac Hypertensio Verified 10/09/17 06:39 [From Solu-Medrol] n Neomycin AdvReac See Verified 10/09/17 06:39 Comments NSAIDS (Non-Steroidal AdvReac See Verified 10/09/17 06:39 Anti-Inflamma Comments prednisone AdvReac Hypertensio Verified 10/09/17 06:39 n Sulfa (Sulfonamide AdvReac See Verified 10/09/17 06:39 Antibiotics) Comments terfenadine AdvReac See Verified 10/09/17 06:39 Comments tramadol AdvReac See Verified 10/09/17 06:39 Comments All systems ED: reviewed and negative except as stated. Cardiovascular: Reports: chest pain Respiratory: Reports: dyspnea Past Medical History - Past Medical History Medical history: Reports: arthritis, CHF, COPD, DVT, diabetes, GERD, hyperlipidemia, hypertension, migraine, osteoporosis, renal disease, thyroid disease Surgical history: Reports: appendectomy, hysterectomy, orthopedic, other, IVC filter Psychiatric history: Reports: anxiety, depression PATIENT ASSISTANT history: Reports: bilateral 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 - Social History Smoking Status: Former smoker Smokeless Tobacco Status: No Alcohol use: Reports: none Drug use: Reports: none Physical Exam - General Limitations: no limitations General appearance: alert, in distress (In mild distress), obese - Head Head exam: atraumatic, normocephalic, normal inspection - Eye Eye exam: Present: PERRL, EOMI - Chest Chest inspection: Present: normal inspection, symmetric chest wall rise, tenderness (Above the left breast) - Respiratory Respiratory exam: Present: normal lung sounds bilaterally (Although diminished in the bases). Absent: respiratory distress, wheezes - Cardiovascular Cardiovascular exam: Present: regular rate, normal rhythm, normal heart sounds - Abdominal Exam Abdominal exam: Present: soft, Non-Tender. Absent: tenderness, distention, guarding, rebound, rigidity - Extremities Exam Extremities exam: Present: normal inspection, pedal edema (Trace bilateral pedal edema to the mid calves). Absent: tenderness - Neurological Exam Neurological exam: Present: alert, oriented X3 - Psychiatric Psychiatric exam: Present: normal affect, normal mood - Skin Skin exam: Present: warm, dry, intact, normal color Course Course Narrative: This is a 62-year-old female with a history of coronary disease, CHF, and COPD as well as end-stage renal disease with chest pain dialysis. Vital Signs Temperature 97.8 F 10/10/17 07:10 Pulse Rate 75 10/10/17 07:10 Respiratory Rate 20 10/10/17 07:10 Blood Pressure 167/96 10/10/17 07:10 O2 Sat by Pulse Oximetry 96 10/10/17 07:10 Temperature 97.8 F 10/10/17 07:10 Pulse Rate 78 10/10/17 07:55 Respiratory Rate 14 10/10/17 07:55 Blood Pressure 156/71 10/10/17 07:55 O2 Sat by Pulse Oximetry 100 10/10/17 07:55 Oxygen Delivery Oxygen Delivery Room Air Medical Decision Making - MDM Narrative Medical decision making narrative: This is a 62-year-old female on dialysis with chest pain during dialysis. Her evaluation here shows a low troponin but fluid overload. I discussed her case with the hospitalist and the on-call cork mixer, and she would be admitted for the completion of a chest pain rule out and also to receive dialysis. - Lab Data Lab results reviewed: Yes I reviewed the patient's lab results. Lab results narrative: CBC shows anemia 10.1 and 33.9 BMP showed be human elevated at 35, creatinine at 3.21, potassium of 5.7 Troponin was low Result diagrams: 10/10/17 07:55 10/10/17 07:55 Lab Results 10/10/17 10/10/17 Range/Units 07:55 07:55 WBC 5.7 (4.3-11.1) K/mcL RBC 3.42 L (3.82-4.97) M/mcL Hgb 10.1 L (11.5-15.4) g/dL Hct 33.9 L (35.3-44.9) % MCV 99.1 (83.0-100.0) fL MCH 29.5 (28.0-33.3) pg MCHC 29.8 L (31.6-35.5) g/dL RDW 18.2 H (11.5-14.5) % Plt Count 206 (140-400) K/mcL MPV 10.1 (9.4-12.4) fL Immature Gran % 0.5 (0-4) % Seg Neutrophils % 60.3 % Lymphocytes % 23.4 % Monocytes % 9.7 % Eosinophils % 5.4 % Basophils % 0.7 % Neutrophils # 3.4 (1.6-8.9) K/mcL Lymphocytes # 1.3 (0.6-4.6) K/mcL Monocytes # 0.6 (0.0-1.3) K/mcL Eosinophils # 0.3 (0.0-0.6) K/mcL Basophils # 0.0 (0.0-0.2) K/mcL Sodium 136 (136-145) mEq/L Potassium 5.7 H (3.5-5.1) mEq/L Chloride 104 (98-107) mEq/L Carbon Dioxide 22 L (23-29) mEq/L BUN 35 H (8-23) mg/dL Creatinine 3.21 H (0.60-1.20) mg/dL Est GFR ( Amer) 18 L (> 60) Est GFR (Non-Af Amer) 15 L (> 60) BUN/Creatinine Ratio 11 (6-26) Glucose 156 H (70-105) mg/dL Calculated Osmolality 293 (280-300) Calcium 8.9 (8.6-10.3) mg/dL Troponin I < 0.03 (< 0.04) ng/mL - Radiology Data Radiology results reviewed: Yes I reviewed the patient's radiology results. Chest x-ray showing pulmonary vascular congestion consistent with fluid overload - EKG Data EKG #1 EKG attestation: Yes I reviewed and interpreted this EKG. EKG results narrative: ECG shows sinus rhythm, 76 bpm, normal intervals, normal axis, no ST abnormalities, Q waves in lead 3, T waves inverted in lead 3, Q waves seen on prior from 07/11/2013, EKG today is otherwise similar to prior except for the T- wave inversion in lead 3
[2017-10-10 08:05] LABS: Basophils % 0.7 %
[2017-10-10 08:06] LABS: Eosinophils # 0.3 K/mcL (0.0-0.6); Eosinophils % 5.4 %; Hematocrit 33.9 % (35.3-44.9); Hemoglobin 10.1 g/dL (11.5-15.4); Immature Granulocytes % 0.5 % (0-4); Lymphocytes # 1.3 K/mcL (0.6-4.6); Lymphocytes % 23.4 %; Mean Corpuscular HGB Conc 29.8 g/dL (31.6-35.5); Mean Corpuscular Hemoglobin 29.5 pg (28.0-33.3); Mean Corpuscular Volume 99.1 fL (83.0-100.0); Mean Platelet Volume 10.1 fL (9.4-12.4); Monocytes # 0.6 K/mcL (0.0-1.3); Monocytes % 9.7 %; Neutrophils # 3.4 K/mcL (1.6-8.9); Platelet Count 206 K/mcL (140-400); Red Blood Count 3.42 M/mcL (3.82-4.97); Red Cell Distribution Width 18.2 % (11.5-14.5); Segmented Neutrophils % 60.3 %
[2017-10-10 08:25] LABS: BUN/Creatinine Ratio 11 (6-26); Blood Urea Nitrogen 35 mg/dL (8-23); Calcium 8.9 mg/dL (8.6-10.3); Carbon Dioxide 22 mEq/L (23-29); Chloride 104 mEq/L (98-107); Glucose 156 mg/dL (70-105); Osmolality,Calculated 293 (280-300); Potassium 5.7 mEq/L (3.5-5.1); Sodium 136 mEq/L (136-145); Troponin I < 0.03 ng/mL (< 0.04); eGFR For Non-African Americans 15 (> 60)
[2017-10-10] MEDS ORDERED: Furosemide 40 MG/4 ML VIAL IVP ONE (09:19)
[2017-10-10] MEDS ORDERED: *HR* Alteplase (Cathflo) 2 MG VIAL IVP ONE (09:56)
[2017-10-10] MEDS ORDERED: 0.9 % Sodium Chloride 250 ML IVC PRN (09:57)
[2017-10-10 13:09] LABS: Hepatitis B Surface Antigen Nonreactive (Nonreactive)
--- NOTE | 2017-10-10 13:32 | Nephrology Consult Note ---
Date of Encounter: 10/10/17 Time of Encounter: 13:25 Assessment and Plan (1) ESRD (end stage renal disease) on dialysis Current Visit: Yes Status: Acute Current regimen is TTS at [facility]. Last full tx was 10/04/17. HD ordered for today if she can tolerate. Avoid nephrotoxins and renal dose all medications. (2) Chest pain Current Visit: Yes Status: Acute per primary. Qualifiers: Chest pain type: precordial pain Qualified Code(s): R07.2 - Precordial pain (3) Fluid overload Current Visit: Yes Status: Acute HD ordered. Qualifiers: Hypervolemia type: unspecified Qualified Code(s): E87.70 - Fluid overload, unspecified History of Present Illness - Reason for Consult Consult date: 10/10/17 end stage renal disease - Chief Complaint chest pain - History of Present Illness Ms. Mars is a 62 year old female with ESRD. She is TTS at [facility]. PMH: arthritis, CHF, COPD, DVT, diabetes, GERD, hyperlipidemia, hypertension, migraine, osteoporosis, renal disease, thyroid disease. She was just recently seen in ED (yesterday) because her Tunneled line was not functioning. IR was consulted and she was sent home from the ED and her cath was functioning properly. She tells me that she was hooked up to HD today and it was functioning properly but she unfortunately developed chest pain. It started this am during HD and has not stopped. Describes it has non-radiating and sharp. 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 She lives at home with her . Denies tobacco use, etoh, and drug use. Past Med Surg Social Fam HX - Past Medical History Medical history: arthritis, CHF, COPD, DVT, diabetes, GERD, hyperlipidemia, hypertension, migraine, osteoporosis, renal disease, thyroid disease Additional medical history: dialysis 3 days a week Psychiatric history: anxiety, depression - Past Surgical History Surgical History: appendectomy, hysterectomy, orthopedic, other, IVC filter Additional surgical history: carpal tunnel surgery left hand. perma cath change 2 to 3 weeks ago - Social History Smoking Status: Former smoker Smokeless Tobacco Status: No Alcohol use: none Drug use: none - Family History Father Living Status: Hx Family Cardiac Disorders: Yes Hx Family GI Disorders: No Hx Family Neurologic Disorders: Yes Mother Living Status: Hx Family Cardiac Disorders: Yes Hx Family Cancer: Yes Hx Family GI Disorders: No Hx Family Endocrine Disorder: Yes (DIABETES MELLITUS.) Medications and Allergies Meclizine [Antivert] 25 mg PO TID 09/12/14 [History] Allopurinol [Zyloprim 100 MG] 100 mg PO DAILY 03/22/15 [History] DiphenhydraMINE [Benadryl] 25 mg PO TID 03/22/15 [History] Exenatide Microspheres [Bydureon Pen] 2 mg SQ WE 03/22/15 [History] Lidocaine Patch [Lidoderm 5% patch] 1 patch TP DAILY 03/22/15 [History] Nitroglycerin [Nitrostat] 0.4 mg SL Q5M PRN 03/22/15 [History] Promethazine [Phenergan] 25 mg PO TID 03/22/15 [History] clonazePAM [Klonopin] 1 mg PO HS 03/22/15 [History] Albuterol Neb [AccuNeb] 1.25 mg IH QID 05/06/16 [History] Nystatin POWDER [Nystop] 1 appl TP BID 05/06/16 [History] Rosuvastatin [Crestor] 20 mg PO HS 05/06/16 [History] Acetaminophen [Tylenol] 650 mg PO Q4-6H PRN 11/10/16 [History] Omeprazole [PriLOSEC] 40 mg PO DAILY 11/10/16 [History] Gabapentin [Neurontin] 100 mg PO TID #90 capsule 11/27/16 [Rx] Albuterol Sulfate [Ventolin Hfa] 2 puff IH Q4H PRN 08/12/17 [History] Calcium Acetate [Phos-LO] 1,334 mg PO TID 08/12/17 [History] Cyclobenzaprine [Flexeril] 10 mg PO TID 08/12/17 [History] Docusate [Colace] 100 mg PO TID 08/12/17 [History] Doxepin HCl 50 mg PO HS 08/12/17 [History] Furosemide [Lasix] 40 mg PO QAM 08/12/17 [History] Insulin ASPART [Novolog Flexpen] 32 unit SQ TIDAC 08/12/17 [History] Levothyroxine Sodium [Levoxyl] 250 mcg PO QAM 08/12/17 [History] Metoprolol XL (24 HR) Succ [Toprol Xl] 25 mg PO DAILY 08/12/17 [History] Warfarin [Coumadin] 5 mg PO DAILY 08/12/17 [History] hydrOXYzine HCl [Hydroxyzine HCl] 25 mg PO TID 08/12/17 [History] Isosorbide MONOnitrate (24 HR) [Imdur] 120 mg PO QPM 30 Days #30 tab.er.24h 05/28 [Rx] amLODIPine [Norvasc] 2.5 mg PO DAILY #30 tablet 09/04/17 [Rx] Ergocalciferol (VITAMIN D2) [Vitamin D2] 50,000 unit PO QWEEK 09/23/17 [History] Furosemide [Lasix] 20 mg PO QPM 09/23/17 [History] Furosemide [Lasix] 40 mg PO HS 09/23/17 [History] Insulin Glargine,Hum.rec.anlog [Lantus Solostar] 100 unit SQ BID 09/23/17 [ History] 3 Allergy/AdvReac Type Severity Reaction Status Date / Time aspirin Allergy Hives Verified 10/09/17 06:39 cephalexin [From Keflex] Allergy Difficulty Verified 10/09/17 06:39 Breathing Cortisone Allergy See Verified 10/09/17 06:39 Comments ibuprofen Allergy Hives Verified 10/09/17 06:39 Iodinated Contrast- Oral and Allergy See Verified 10/09/17 06:39 IV Dye Comments [Iodinated Contrast Media - IV Dye] lidocaine [From Xylocaine] Allergy See Verified 10/09/17 06:39 Comments loratadine [From Claritin] Allergy Hives Verified 10/09/17 06:39 Penicillins Allergy See Verified 10/09/17 06:39 Comments Procaine [From Novocain] Allergy See Verified 10/09/17 06:39 Comments propoxyphene [From Darvon] Allergy See Verified 10/09/17 06:39 Comments pseudoephedrine Allergy Hives Verified 10/09/17 06:39 [From Sudafed] ropinirole [From Requip] Allergy See Verified 10/09/17 06:39 Comments acetaminophen AdvReac See Verified 10/09/17 06:39 Comments albuterol AdvReac Shakiness Verified 10/09/17 06:39 calcium AdvReac See Verified 10/09/17 06:39 Comments ceftriaxone [From Rocephin] AdvReac See Verified 10/09/17 06:39 Comments clindamycin AdvReac Hypotension Verified 10/09/17 06:39 codeine AdvReac Hypertensio Verified 10/09/17 06:39 n doxycycline AdvReac See Verified 10/09/17 06:39 Comments famotidine AdvReac See Verified 10/09/17 06:39 Comments hydrocodone AdvReac See Verified 10/09/17 06:39 Comments hydrocortisone AdvReac Hypertensio Verified 10/09/17 06:39 n ipratropium AdvReac See Verified 10/09/17 06:39 Comments methylprednisolone AdvReac Hypertensio Verified 10/09/17 06:39 [From Solu-Medrol] n Neomycin AdvReac See Verified 10/09/17 06:39 Comments NSAIDS (Non-Steroidal AdvReac See Verified 10/09/17 06:39 Anti-Inflamma Comments prednisone AdvReac Hypertensio Verified 10/09/17 06:39 n Sulfa (Sulfonamide AdvReac See Verified 10/09/17 06:39 Antibiotics) Comments terfenadine AdvReac See Verified 10/09/17 06:39 Comments tramadol AdvReac See Verified 10/09/17 06:39 Comments Review of Systems Constitutional: no chills, no fatigue Cardiovascular: chest pain, chest pain at rest, palpitations, no dyspnea Respiratory: no dyspnea Gastrointestinal: no change in bowel habits, no diarrhea, no nausea, no vomiting Exam - Vital Signs Vital signs: Initial Vital Signs Temp Pulse Resp BP Pulse Ox 97.8 F 75 20 167/96 96 10/10/17 07:10 10/10/17 07:10 10/10/17 07:10 10/10/17 07:10 10/10/17 07:10 Vital Signs - Last 8 Hours Temp Pulse Resp BP Pulse Ox 10/10/17 12:05 3 10/10/17 11:42 98.1 F 77 17 183/100 100 10/10/17 10:18 78 14 153/95 99 Intake and Output 10/09/17 10/10/17 10/10/17 23:59 07:59 15:59 Other: Weight 155.582 kg Patient Weight 08/31/18 23:59 Weight 155.582 kg - General Appearance General appearance: well-developed, well-nourished, obese EENT: ATNC, hearing intact, vision intact Neck: supple Respiratory: clear Cardiology: edema (Trace bilat lower extremity edema.), normal S1, normal S2 - Dialysis Access Dialysis Vascular Access: Venous Catheter (Tunneled line, DRSG C/D/I) Gastrointestinal: normoactive bowel sounds, no tenderness, no guarding Integumentary: no rash, warm and dry Neurologic: alert and oriented x3 Psychiatric: mood/affect appropriate, cooperative Results - Lab Results 10/10/17 07:55 10/10/17 07:55 Most recent lab results Calcium 8.9 mg/dL (8.6-10.3) 10/10/17 07:55 Consult Discharge Plan - Plan Referrals: Mauro Dockery MD [Primary Care Provider] -
[2017-10-10] MEDS ORDERED: Acetaminophen 325 MG TABLET PO PRN (14:12)
[2017-10-10] MEDS ORDERED: Nitroglycerin 0.4 MG TAB.SUBL SL PRN (14:12)
[2017-10-10] MEDS ORDERED: Naloxone 0.4 MG/ML INJ IVP PRN (14:32)
[2017-10-10] MEDS ORDERED: *HR* Dextrose 50 % in Water (Syg) 50 ML SYRINGE IVP PRN (14:41)
[2017-10-10] MEDS ORDERED: D5% in Water 1,000 ML IVC PRN (14:41)
[2017-10-10] MEDS ORDERED: Dextrose Gel 15 GM/37.5 ML TUBE PO PRN ×2 (14:41)
--- NOTE | 2017-10-10 14:59 | Internal Med History&Physical ---
<EldacathinatalioCasper sanchez - Last Filed: 10/10/17 15:46> Date of Encounter: 10/10/17 Time of Encounter: 12:30 Internal Medicine - H&P: HPI Chief complaint: CP Admitted From: Emergency Dept Plans for Post Hospital Care: Home History of present illness: Ms. Mars is a 62 year old female w/PMH of arthritis, CHF, COPD, DVT, diabetes , GERD, HLD, HTN, migraines, osteoporosis, ESRD on dialysis, and thyroid disease presents from the ED with chief complaint of chest pain that began today while she was receiving dialysis. Patient states she was approximately 20 minutes into dialysis when she began having CP that she describes as centralized sharp/stabbing pain w/radiation to left breast and left arm. Pt. states that there are no alleviating or aggravating factors. Pt. reports went out of town for son's and did not do dialysis. Came home and was not able to complete dialysis d/t clogged catheter. Will re-attempt today. Pt. denies recent illness, fever, chills, nausea, vomiting, headache, changes in vision, unusual bleeding, shortness of breath, abdominal pain, diarrhea, constipation, dizziness, lightheadedness, pre-syncope, or syncope. Past Med Surg Social Fam HX - Past Medical History Source: patient, old records reviewed, obtained from family Medical history: arthritis, CHF, COPD, DVT, diabetes, GERD, hyperlipidemia, hypertension, migraine, osteoporosis, renal disease, thyroid disease Additional medical history: dialysis 3 days a week Psychiatric history: anxiety, depression - Past Surgical History Surgical History: appendectomy, hysterectomy, orthopedic, other, IVC filter Additional surgical history: carpal tunnel surgery left hand. perma cath change 2 to 3 weeks ago - Social History Smoking Status: Former smoker Packs per day: 2 PPD - Reports quitting 11 years ago Smokeless Tobacco Status: No Alcohol use: none Drug use: none Current living situation: Home, With Family Activity Level: Wheelchair bound Recent Out of Country Travel Within the Last 8 Weeks: No Exposure or Possible Exposure to Illness During Travel: No - Family History Father Race: Family Member Ethnicity: Non- Living Status: Age at : 77 Cause of : CHF Hx Family Cardiac Disorders: Yes (CHF, HTN) Hx Family Endocrine Disorder: Yes (DM) Mother Race: Family Member Ethnicity: Non- Living Status: Age at : 58 Cause of : Metastatic cancer Hx Family Cardiac Disorders: Yes (DVTs) Hx Family Cancer: Yes (Metastatic) Hx Family Endocrine Disorder: Yes (DM) Brother Race: Family Member Ethnicity: Non- Living Status: Age at : 57 Cause of : DC Hx Family Cardiac Disorders: Yes (CHF, DC) Sister Race: Family Member Ethnicity: Non- Living Status: Age at : 74 Cause of : CHF Hx Family Cardiac Disorders: Yes (CHF) Hx Family Genitourinary Disorders: Yes (CKD) Internal Medicine - H&P: Meds Meclizine [Antivert] 25 mg PO TID 09/12/14 [History] Allopurinol [Zyloprim 100 MG] 100 mg PO DAILY 03/22/15 [History] DiphenhydraMINE [Benadryl] 25 mg PO TID 03/22/15 [History] Exenatide Microspheres [Bydureon Pen] 2 mg SQ WE 03/22/15 [History] Lidocaine Patch [Lidoderm 5% patch] 1 patch TP DAILY 03/22/15 [History] Nitroglycerin [Nitrostat] 0.4 mg SL Q5M PRN 03/22/15 [History] Promethazine [Phenergan] 25 mg PO TID 03/22/15 [History] clonazePAM [Klonopin] 1 mg PO HS 03/22/15 [History] Albuterol Neb [AccuNeb] 1.25 mg IH QID 05/06/16 [History] Nystatin POWDER [Nystop] 1 appl TP BID 05/06/16 [History] Rosuvastatin [Crestor] 20 mg PO HS 05/06/16 [History] Acetaminophen [Tylenol] 650 mg PO Q4-6H PRN 11/10/16 [History] Omeprazole [PriLOSEC] 40 mg PO DAILY 11/10/16 [History] Gabapentin [Neurontin] 100 mg PO TID #90 capsule 11/27/16 [Rx] Albuterol Sulfate [Ventolin Hfa] 2 puff IH Q4H PRN 08/12/17 [History] Calcium Acetate [Phos-LO] 1,334 mg PO TID 08/12/17 [History] Cyclobenzaprine [Flexeril] 10 mg PO TID 08/12/17 [History] Docusate [Colace] 100 mg PO TID 08/12/17 [History] Doxepin HCl 50 mg PO HS 08/12/17 [History] Furosemide [Lasix] 40 mg PO QAM 08/12/17 [History] Insulin ASPART [Novolog Flexpen] 32 unit SQ TIDAC 08/12/17 [History] Levothyroxine Sodium [Levoxyl] 250 mcg PO QAM 08/12/17 [History] Metoprolol XL (24 HR) Succ [Toprol Xl] 25 mg PO DAILY 08/12/17 [History] Warfarin [Coumadin] 5 mg PO DAILY 08/12/17 [History] hydrOXYzine HCl [Hydroxyzine HCl] 25 mg PO TID 08/12/17 [History] Isosorbide MONOnitrate (24 HR) [Imdur] 120 mg PO QPM 30 Days #30 tab.er.24h 05/28 [Rx] amLODIPine [Norvasc] 2.5 mg PO DAILY #30 tablet 09/04/17 [Rx] Ergocalciferol (VITAMIN D2) [Vitamin D2] 50,000 unit PO QWEEK 09/23/17 [History] Furosemide [Lasix] 20 mg PO QPM 09/23/17 [History] Furosemide [Lasix] 40 mg PO HS 09/23/17 [History] Insulin Glargine,Hum.rec.anlog [Lantus Solostar] 100 unit SQ BID 09/23/17 [ History] 3 Allergy/AdvReac Type Severity Reaction Status Date / Time aspirin Allergy Hives Verified 10/09/17 06:39 cephalexin [From Keflex] Allergy Difficulty Verified 10/09/17 06:39 Breathing Cortisone Allergy See Verified 10/09/17 06:39 Comments ibuprofen Allergy Hives Verified 10/09/17 06:39 Iodinated Contrast- Oral and Allergy See Verified 10/09/17 06:39 IV Dye Comments [Iodinated Contrast Media - IV Dye] lidocaine [From Xylocaine] Allergy See Verified 10/09/17 06:39 Comments loratadine [From Claritin] Allergy Hives Verified 10/09/17 06:39 Penicillins Allergy See Verified 10/09/17 06:39 Comments Procaine [From Novocain] Allergy See Verified 10/09/17 06:39 Comments propoxyphene [From Darvon] Allergy See Verified 10/09/17 06:39 Comments pseudoephedrine Allergy Hives Verified 10/09/17 06:39 [From Sudafed] ropinirole [From Requip] Allergy See Verified 10/09/17 06:39 Comments acetaminophen AdvReac See Verified 10/09/17 06:39 Comments albuterol AdvReac Shakiness Verified 10/09/17 06:39 calcium AdvReac See Verified 10/09/17 06:39 Comments ceftriaxone [From Rocephin] AdvReac See Verified 10/09/17 06:39 Comments clindamycin AdvReac Hypotension Verified 10/09/17 06:39 codeine AdvReac Hypertensio Verified 10/09/17 06:39 n doxycycline AdvReac See Verified 10/09/17 06:39 Comments famotidine AdvReac See Verified 10/09/17 06:39 Comments hydrocodone AdvReac See Verified 10/09/17 06:39 Comments hydrocortisone AdvReac Hypertensio Verified 10/09/17 06:39 n ipratropium AdvReac See Verified 10/09/17 06:39 Comments methylprednisolone AdvReac Hypertensio Verified 10/09/17 06:39 [From Solu-Medrol] n Neomycin AdvReac See Verified 10/09/17 06:39 Comments NSAIDS (Non-Steroidal AdvReac See Verified 10/09/17 06:39 Anti-Inflamma Comments prednisone AdvReac Hypertensio Verified 10/09/17 06:39 n Sulfa (Sulfonamide AdvReac See Verified 10/09/17 06:39 Antibiotics) Comments terfenadine AdvReac See Verified 10/09/17 06:39 Comments tramadol AdvReac See Verified 10/09/17 06:39 Comments All Systems PM: A 10-system review of systems was performed and is negative for pertinent findings except as documented above in the HPI. - Constitutional Constitutional: as per HPI, no chills, no fever(s), no night sweats - EENT Eyes: no change in vision, no discharge, no pain, no photophobia Ears: no ear discharge, no ear pain, no tinnitus Nose, mouth and throat: no dysphagia, no nasal discharge, no neck pain, no sore throat - Breasts Breasts: as per HPI - Cardiovascular Cardiovascular ROS IM: as per HPI, chest pain, edema (Bilateral LEs d/t CHF), no diaphoresis, no dyspnea, no lightheadedness, no palpitations, no syncope - Respiratory Respiratory: no cough, no dyspnea, no wheezing, no excessive phlegm production - Gastrointestinal Gastrointestinal: no abdominal pain, no diarrhea, no hematemesis, no hematochezia, no melena, no nausea, no vomiting - Genitourinary Genitourinary: no change in urinary stream, no dysuria, no flank pain, no hematuria Menstruation: as per HPI, post hysterectomy - Musculoskeletal Musculoskeletal ROS IM: no numbness, no tingling - Integumentary Integumentary IM: no rash, no unusual bruising - Neurological Neurological ROS: no confusion, no convulsions, no focal weakness, no numbness, no tingling, no tremor(s) - Psychiatric Psychiatric: as per HPI - Endocrine Endocrine IM: as per HPI - Hematologic/Lymphatic Hematologic/Lymphatic: no easy bruising - Allergic/Immunologic Allergic/Immunologic: as per HPI - Constitutional Vitals: Temp Pulse Resp BP Pulse Ox 98.1 F 77 17 183/100 3 10/10/17 11:42 10/10/17 11:42 10/10/17 11:42 10/10/17 11:42 10/10/17 12:05 General appearance: Present: cooperative, A&O X 3, morbidly obese, pleasant, no acute distress, answers questions appropriately Exam: Pt. examined at bedside w/pt. seated on the side of the bed in no apparent distress. Pt. stated she began having CP during dialysis this a.m. but has not been fully dialyzed in the past two weeks d/t leaving town for her son's . Describes CP as sharp and stabbing w/radiation to left breast and arm. No other complaints during exam. HR RRR. RR 14. SpO2 100% on 3L v/NC. - Head Head exam: Present: atraumatic, normocephalic - Eye Eye exam: Present: PERRL, conjuntiva pink, sclera anicteric Pupils: Present: PERRL - ENT ENT exam: Present: normal exam - Neck Neck exam general surgery: Present: supple, trachea midline. Absent: lymphadenopathy - Respiratory Respiratory exam: Present: CTAB. Absent: accessory muscle use, rales, rhonchi, wheezes - Cardiovascular Cardiovascular exam: Present: RRR, +S1, +S2. Absent: diastolic murmur, gallop, rubs, systolic murmur - GI/Abdominal GI/Abdominal exam: Present: normal bowel sounds, soft, no peritoneal signs. Absent: distended, tenderness - Rectal Rectal exam: Present: deferred - Additional comments: exam deferred. - Extremities Exam Extremities exam: Present: pedal edema (1+ pitting edema bilaterally), warm, radial pulses palpable and symmetrical. Absent: calf tenderness, cyanotic - Back Exam Back exam: Present: normal inspection - Neurological Exam Neurological exam: Present: CN II-XII intact, oriented X3, no focal deficits. Absent: pronater drift, facial droop, speech deficit - Psychiatric Psychiatric exam: Present: normal affect, normal mood - Skin Skin exam: Present: dry, intact Internal Med - H&P Results - Labs CBC & Chem 7: 10/10/17 07:55 10/10/17 07:55 - Diagnostic Studies Chest x-ray Additional comments: Impressions Chest X-Ray 10/10/17 07:14 IMPRESSION: CHF with mild degree of underlying edema. D/ / Artemio Luna MD / Artemio Luna MD Interpreting Provider: Artemio Luna MD - Assessment and plan (1) Chest pain Current Visit: Yes Status: Acute Assessment and plan: Acute CP that began 20 minutes into dialysis this morning. Pt. describes as centralized sharp/stabbing pain w/radiation to left breast and left arm. Pt. states that there are no alleviating or aggravating factors. Pt. was seen by Cardiology in August for similar sx. Pt. reports adverse rxn to aspirin and refused ASA desensitization or stress test at that time. Echocardiogram dated 09/03/17 showed LVEF of 60%, normal LV chamber size and function, asymmetric hypertrophy of the basal septum, and trivial pericardial effusion. Initial troponin <0.03. Will trend. Crestor 40 mg ONCE. Continue Crestor 20 mg HS tomorrow. Nephrology consulted and plan to dialyze pt. today. Continue pts. HTN/ HLD/DM medications. Consider Cardiology consult if pts. troponins abnormal or CP worsens. Pt. discussed w/Dr. El who agrees w/plan of care. Pt. is high risk for further morbidity and complications based on current sx, lack of dialysis in past two weeks, morbid obesity, hx; and current risk factors of CHF , DM, HLD, HTN. Observation. Qualifiers: Chest pain type: precordial pain Qualified Code(s): R07.2 - Precordial pain (2) CHF (congestive heart failure) Current Visit: Yes Status: Chronic Assessment and plan: Hx of chronic CHF. Stable currently w/mild pedal edema. Echo on 09/03/17 showed LVEF of 60%, normal LV chamber size and function, asymmetric hypertrophy of the basal septum, and trivial pericardial effusion. CXR today shows CHF with mild degree of underlying edema. Mild pulmonary vascular congestion centrally and no significant change from prior imaging. 1.0L daily fluid restriction. Discussed pts. TYRON dodd w/Dr. Del Castillo w/recommendation to continue. Monitor I& O and daily weight. Qualifiers: Heart failure type: unspecified Heart failure chronicity: chronic Qualified Code(s): I50.9 - Heart failure, unspecified (3) HTN (hypertension) Current Visit: Yes Status: Chronic Assessment and plan: Hx of chronic HTN. Monitor pt. and VS. Continue pts. Metoprolol, Imdur, and Norvasc. IVP hydralazine ordered when necessary. Qualifiers: Hypertension type: essential hypertension Qualified Code(s): I10 - Essential (primary) hypertension (4) HLD (hyperlipidemia) Current Visit: Yes Status: Chronic Assessment and plan: Hx of chronic HLD. Lipid panel in a.m. labs. Continue pts. Crestor. Qualifiers: Hyperlipidemia type: pure hypercholesterolemia Qualified Code(s): E78.00 - Pure hypercholesterolemia, unspecified; E78.0 - Pure hypercholesterolemia (5) ESRD (end stage renal disease) on dialysis Current Visit: Yes Status: Chronic Assessment and plan: Hx of ESRD on dialysis. Pt. reports she has not been fully dialyzed in the past two weeks d/t attending her son's OOT last week, a clogged catheter this week, and developing CP during dialysis this a.m. Nephrology consult ordered and discussed w/Dr. Del Castillo and I appreciate the consult and recommendations as always. Plan to have pt. dialyzed today. 1.0L fluid restriction daily. Monitor I&O and daily weight. (6) COPD (chronic obstructive pulmonary disease) Current Visit: Yes Status: Chronic Assessment and plan: Hx of chronic COPD. Stable. Continue pts. inhalers. Supplemental O2 w/titration and SpO2 monitoring. Qualifiers: COPD type: chronic bronchitis Chronic bronchitis type: simple Qualified Code(s): J41.0 - Simple chronic bronchitis (7) Diabetes Current Visit: Yes Status: Chronic Assessment and plan: Hx of chronic diabetes. Will continue pts. home insulin dosing and add low dose correction insulin sliding scale w/hypoglycemic protocol. BG checks ACHS. A1c in a.m. labs. Qualifiers: Diabetes mellitus type: type 2 Diabetes mellitus long-term insulin use: with terminal gauger use Diabetes mellitus complication status: with circulatory complication Diabetes mellitus complication detail: with other circulatory complications Qualified Code(s): E11.59 - Type 2 diabetes mellitus with other circulatory complications; Z79.4 - half-way (current) use of insulin; Z79.4 - terminal make up operator (current) use of insulin; Z79.4 - half-way (current) use of insulin; Z79.4 - half-way (current) use of insulin (8) Hypothyroidism Current Visit: Yes Status: Chronic Assessment and plan: Hx of chronic hypothyroidism. TSH and Free T4 ordered. Continue pts. Synthroid. Qualifiers: Hypothyroidism type: acquired Qualified Code(s): E03.9 - Hypothyroidism, unspecified (9) Morbid obesity with BMI of 50.0-59.9, adult Current Visit: Yes Status: Chronic Assessment and plan: Hx of morbid obesity. Pt. educated on importance of following strict diet d/t ESRD, cardiac hx, DM, and current obesity. (10) DVT prophylaxis Current Visit: Yes Status: Acute Assessment and plan: Continue pts. Coumadin w/Pharmacy dosing. Monitor pt. for signs of bleeding. (11) Anemia Current Visit: Yes Status: Chronic Assessment and plan: Hx of chronic anemia. Hgb 10.1 and Hct 33.9 on admission, up from recent numbers in August. Pt. has chronic DM. Monitor H/H in f/u labs. Pt. denies unusual bleeding. Qualifiers: Anemia type: unspecified type Qualified Code(s): D64.9 - Anemia, unspecified - Time Spent With Patient Total time spent is greater than 50% in coordination of care (as documented) at patient's floor/unit and/or counseling patient: Greater than 35 minutes <Pedro El - Last Filed: 10/10/17 16:25> Date of Encounter: 10/10/17 Internal Medicine - H&P: HPI History of present illness: Ms. Mars is a 62 year old female All Systems PM: A 10-system review of systems was performed and is negative for pertinent findings except as documented above in the HPI. - Constitutional Vitals: Temp Pulse Resp BP Pulse Ox 98.1 F 77 17 183/100 3 10/10/17 11:42 10/10/17 11:42 10/10/17 11:42 10/10/17 11:42 10/10/17 12:05 Internal Med - H&P Results - Labs CBC & Chem 7: 10/10/17 07:55 10/10/17 07:55 Labs: Cardiac Enzymes 10/10/17 Range/Units 15:35 Troponin I < 0.03 (< 0.04) ng/mL - Assessment and plan (1) Diabetes Current Visit: Yes Status: Chronic Qualifiers: Diabetes mellitus type: type 2 Diabetes mellitus long-term insulin use: with terminal gauger use Diabetes mellitus complication status: with circulatory complication Diabetes mellitus complication detail: with other circulatory complications Qualified Code(s): E11.59 - Type 2 diabetes mellitus with other circulatory complications; Z79.4 - terminal make up operator (current) use of insulin; Z79.4 - terminal make up operator (current) use of insulin; Z79.4 - terminal make up operator (current) use of insulin; Z79.4 - terminal make up operator (current) use of insulin (2) Hypothyroidism Current Visit: Yes Status: Chronic Qualifiers: Hypothyroidism type: acquired Qualified Code(s): E03.9 - Hypothyroidism, unspecified (3) DVT prophylaxis Current Visit: Yes Status: Acute (4) Morbid obesity with BMI of 50.0-59.9, adult Current Visit: Yes Status: Chronic (5) Chest pain Current Visit: Yes Status: Acute Qualifiers: Chest pain type: precordial pain Qualified Code(s): R07.2 - Precordial pain (6) COPD (chronic obstructive pulmonary disease) Current Visit: Yes Status: Chronic Qualifiers: COPD type: chronic bronchitis Chronic bronchitis type: simple Qualified Code(s): J41.0 - Simple chronic bronchitis (7) ESRD (end stage renal disease) on dialysis Current Visit: Yes Status: Chronic (8) CHF (congestive heart failure) Current Visit: Yes Status: Chronic Qualifiers: Heart failure type: unspecified Heart failure chronicity: chronic Qualified Code(s): I50.9 - Heart failure, unspecified (9) HTN (hypertension) Current Visit: Yes Status: Chronic Qualifiers: Hypertension type: essential hypertension Qualified Code(s): I10 - Essential (primary) hypertension (10) HLD (hyperlipidemia) Current Visit: Yes Status: Chronic Qualifiers: Hyperlipidemia type: pure hypercholesterolemia Qualified Code(s): E78.00 - Pure hypercholesterolemia, unspecified; E78.0 - Pure hypercholesterolemia (11) Anemia Current Visit: Yes Status: Chronic Qualifiers: Anemia type: unspecified type Qualified Code(s): D64.9 - Anemia, unspecified - Time Spent With Patient Total time spent is greater than 50% in coordination of care (as documented) at patient's floor/unit and/or counseling patient: - Attending Attestation I examined this patient and my medical decision-making was reviewed with the Nurse Practitioner. I agree with the documented findings, disposition and treatment plan as described except to the extent set forth below.
--- NOTE | 2017-10-10 15:10 | Event Note ---
Date of Encounter: 10/10/17 Time of Encounter: 15:00 - Cardiology Event Note Discussed and reviewed with Dr. Benson. Consulted for atypical chest pain, troponin negative. Please refer to x2 recent Cardiology inpatient consults for recommendations (same symptoms). Full consult canceled per Primary service. Recommend improved BP control, increase Norvasc/imdur as BP will tolerate. Recommend outpatient follow-up, recent N/S appt with Cardiology.
[2017-10-10] MEDS: Albuterol Neb 1.25 MG/3 ML VIAL IH SCH (16:11)
[2017-10-10] MEDS: Calcium Acetate 667 MG CAPSULE PO SCH (16:19)
[2017-10-10] MEDS: Gabapentin 100 MG CAPSULE PO SCH ×2 (16:19→21:21)
[2017-10-10] MEDS: hydrOXYzine pamoate 25 MG CAPSULE PO SCH ×2 (16:19→21:22)
[2017-10-10] MEDS: Insulin LISPRO 300 UNITS/3 ML VIAL SQ SCH ×2 (17:21)
[2017-10-10] MEDS ORDERED: Warfarin perPT PO PRN (18:00)
[2017-10-10] MEDS ORDERED: Isosorbide MONOnitrate (24 HR) 60 MG TAB.ER.24H PO SCH (18:00)
[2017-10-10] MEDS ORDERED: Furosemide 40 MG TABLET PO SCH (21:00)
[2017-10-10] MEDS ORDERED: Insulin LISPRO 300 UNITS/3 ML VIAL SQ SCH (21:00)
[2017-10-10] MEDS ORDERED: clonazePAM 1 MG TABLET PO SCH (21:00)
[2017-10-10] MEDS: Insulin DETEMIR 100 UNIT/ML X5UNITS SQ SCH (21:32)
[2017-10-10] MEDS: Nystatin POWDER 30 GM BOTTLE TP SCH (21:50)
[2017-10-10 22:27] LABS: INR 1.8; Prothrombin Time 20.8 Seconds (9.4-12.1)
[2017-10-10] MEDS ORDERED: *HR* Warfarin 5 MG TABLET PO ONE (23:00)
[2017-10-11] MEDS: Albuterol Neb 1.25 MG/3 ML VIAL IH SCH ×3 (00:14→11:03)
[2017-10-11 04:29] LABS: Basophils % 0.6 %; Eosinophils # 0.2 K/mcL (0.0-0.6); Eosinophils % 4.3 %; Hematocrit 28.2 % (35.3-44.9); Immature Granulocytes % 0.4 % (0-4); Lymphocytes # 1.6 K/mcL (0.6-4.6); Lymphocytes % 32.2 %; Mean Corpuscular HGB Conc 29.4 g/dL (31.6-35.5); Mean Corpuscular Hemoglobin 28.5 pg (28.0-33.3); Mean Corpuscular Volume 96.9 fL (83.0-100.0); Mean Platelet Volume 9.8 fL (9.4-12.4); Monocytes # 0.6 K/mcL (0.0-1.3); Monocytes % 11.7 %; Neutrophils # 2.5 K/mcL (1.6-8.9); Platelet Count 170 K/mcL (140-400); Red Blood Count 2.91 M/mcL (3.82-4.97); Red Cell Distribution Width 18.4 % (11.5-14.5); Segmented Neutrophils % 50.8 %
[2017-10-11 04:33] LABS: Hemoglobin 8.3 g/dL (11.5-15.4)
[2017-10-11 04:45] LABS: INR 1.9; Prothrombin Time 21.9 Seconds (9.4-12.1)
[2017-10-11 04:57] LABS: Albumin 3.1 g/dL (3.5-5.7); Albumin/Globulin Ratio 1.1 (1.1-2.2); Bilirubin,Total 0.4 mg/dL (0.3-1.0); Calcium 8.5 mg/dL (8.6-10.3); Chol/HDL Ratio 4.3 (0-4.9); Globulin 2.8 g/dL (2.4-3.5); Magnesium 1.5 mg/dL (1.6-2.6); Potassium 4.4 mEq/L (3.5-5.1); Total Protein 5.9 g/dL (6.4-8.9)
[2017-10-11 05:09] LABS: Thyroid Stimulating Hormone 7.288 mcIU/mL (0.340-5.600)
[2017-10-11] MEDS: Insulin LISPRO 300 UNITS/3 ML VIAL SQ SCH ×4 (08:10→12:10)
[2017-10-11] MEDS: Insulin DETEMIR 100 UNIT/ML X5UNITS SQ SCH (08:10)
[2017-10-11] MEDS: Gabapentin 100 MG CAPSULE PO SCH (08:21)
[2017-10-11] MEDS: Calcium Acetate 667 MG CAPSULE PO SCH ×2 (08:21→13:25)
[2017-10-11] MEDS: Furosemide 40 MG TABLET PO SCH ×2 (08:22→13:25)
[2017-10-11] MEDS: Metoprolol XL (24 HR) Succ 25 MG TAB.ER.24H PO SCH ×2 (08:22→13:25)
[2017-10-11] MEDS: hydrOXYzine pamoate 25 MG CAPSULE PO SCH (08:22)
[2017-10-11] MEDS: amLODIPine 5 MG TABLET PO SCH ×2 (08:22→13:26)
[2017-10-11] MEDS: Nystatin POWDER 30 GM BOTTLE TP SCH (08:23)
[2017-10-11] MEDS ORDERED: *HR* Heparin 10,000 UNIT/10 ML VIAL IV PRN (08:29)
[2017-10-11] MEDS ORDERED: 0.9 % Sodium Chloride 250 ML IVC PRN (08:29)
[2017-10-11] MEDS ORDERED: 0.9 % Sodium Chloride 1,000 ML PRIME SCH (08:30)
--- NOTE | 2017-10-11 09:32 | Nephrology Progress Note ---
Date of Encounter: 10/11/17 Time of Encounter: 10:05 - Assessment and Plan (1) ESRD (end stage renal disease) on dialysis Status: Chronic Her Permacath was not functioning well earlier this week and the outpt HD unit was all out of Cathflo, which was added yesterday after admission and her Permacath functioned very well for make-up dialysis. She is typically on HD TTS, so I've resumed her HD today for both clearance and fluid removal to help with her volume mgt/fluid overload, which is improving. She is not nearing intubation. (2) Fluid overload Status: Acute See above. Improving and will target more UF today with HD. Qualifiers: Hypervolemia type: unspecified Qualified Code(s): E87.70 - Fluid overload, unspecified (3) Complication, dialysis catheter clot or failure Status: Acute See above. S/p cathflo with good results. (4) Anemia in chronic kidney disease, on chronic dialysis Status: Chronic Goal Hgb is 10-11. I can as an outpt adjust EPO as needed. (5) Chest pain Status: Acute As per primary. She related it to a "panic attack," she said. Qualifiers: Chest pain type: precordial pain Qualified Code(s): R07.2 - Precordial pain Subjective Principal diagnosis: ESRD Interval history: Pt was s/e while in the dialysis unit. She denied N/V/D or cramping. She was very talkative and said that she has inc'd anxiety. Her CP has improved/ resolved, she affirmed. Objective - Vital Signs Vital signs: Vital Signs Temp Pulse Resp BP Pulse Ox 10/11/17 08:10 97.7 F 92 18 116/59 98 10/11/17 03:08 16 98 10/11/17 01:18 97.9 F 90 16 93/56 98 10/11/17 00:13 20 98 10/10/17 21:05 97.6 F 92 20 104/55 98 10/10/17 19:34 97.6 F 84 20 118/72 100 10/10/17 19:15 97.1 F L 18 132/64 10/10/17 18:55 130/58 10/10/17 18:40 151/89 10/10/17 18:25 182/70 10/10/17 18:10 174/90 10/10/17 17:55 156/88 10/10/17 17:40 127/55 10/10/17 17:25 123/83 10/10/17 17:10 109/53 10/10/17 16:55 151/118 10/10/17 16:40 174/113 10/10/17 16:25 155/75 10/10/17 16:10 180/119 10/10/17 15:55 97.1 F L 20 202/82 10/10/17 12:05 3 10/10/17 11:42 98.1 F 77 17 183/100 100 10/10/17 10:18 78 14 153/95 99 Intake and Output 10/10/17 10/11/17 10/11/17 23:59 07:59 15:59 Output Total 1600 / 1600 0 / 0 Balance -1600 / -1600 0 / 0 Output: Urine 0 / 0 0 / 0 Total Dialysis (HD) Output 1600 / 1600 Other: Weight 155.7 kg Blood Glucose* 161 96 Hemodialysis Net Fluid Removed 1000 (mL) Patient Weight 10/11/17 23:59 Weight 155.7 kg - General Appearance Exam: General appearance: well-developed, well-nourished, obese EENT: ATNC, hearing intact, vision intact Neck: supple Respiratory: clear Cardiology: edema (Trace bilat lower extremity edema.), normal S1, normal S2 - Dialysis Access Dialysis Vascular Access: Venous Catheter (Tunneled line with exit site appearing C/D/I) Gastrointestinal: normoactive bowel sounds, no tenderness, no guarding Integumentary: no rash, warm and dry Neurologic: alert and oriented x3, moves all four extremities. Psychiatric: mood/affect appropriate, pressured speech, cooperative - Lab 10/11/17 03:43 10/11/17 03:43 Most recent lab results Calcium 8.5 mg/dL (8.6-10.3) L 10/11/17 03:43 Magnesium 1.5 mg/dL (1.6-2.6) L 10/11/17 03:43 Consult Discharge Plan - Plan Instructions: Heart Failure (DC), Chronic Obstructive Pulmonary Disease (DC) Referrals: Mauro Dockery MD [Primary Care Provider] -
--- NOTE | 2017-10-11 12:50 | Discharge Summary ---
- NOTES TO OUTPATIENT PROVIDER Notes to Outpatient Provider: none Orders not resulted at time of discharge: Pending orders 10/12/17 04:00 Complete Blood Count [HEME] AM 0400 Comprehensive Metabolic Panel AM 0400 INR/PT [Prothrombin Time INR] [COAG] AM 0400 10/13/17 04:00 Complete Blood Count [HEME] AM 0400 Comprehensive Metabolic Panel AM 0400 INR/PT [Prothrombin Time INR] [COAG] AM 0400 10/14/17 04:00 Complete Blood Count [HEME] AM 0400 Comprehensive Metabolic Panel AM 0400 INR/PT [Prothrombin Time INR] [COAG] AM 0400 10/15/17 04:00 INR/PT [Prothrombin Time INR] [COAG] AM 0400 Date of Encounter: 10/11/17 Time of Encounter: 11:00 - Discharge Diagnosis (1) Diabetes Priority: Secondary Status: Chronic Qualifiers: Diabetes mellitus type: type 2 Diabetes mellitus skilled nursing insulin use: with intermediate project manager use Diabetes mellitus complication status: with circulatory complication Diabetes mellitus complication detail: with other circulatory complications Qualified Code(s): E11.59 - Type 2 diabetes mellitus with other circulatory complications; Z79.4 - termite helper (current) use of insulin; Z79.4 - care home (current) use of insulin; Z79.4 - care home (current) use of insulin; Z79.4 - care home (current) use of insulin (2) Hypothyroidism Priority: Secondary Status: Chronic Qualifiers: Hypothyroidism type: acquired Qualified Code(s): E03.9 - Hypothyroidism, unspecified (3) Morbid obesity with BMI of 50.0-59.9, adult Priority: Secondary Status: Chronic (4) Chest pain Priority: Primary Status: Acute Qualifiers: Chest pain type: precordial pain Qualified Code(s): R07.2 - Precordial pain (5) COPD (chronic obstructive pulmonary disease) Priority: Secondary Status: Chronic Qualifiers: COPD type: chronic bronchitis Chronic bronchitis type: simple Qualified Code(s): J41.0 - Simple chronic bronchitis (6) ESRD (end stage renal disease) on dialysis Priority: Secondary Status: Chronic (7) CHF (congestive heart failure) Priority: Secondary Status: Chronic Qualifiers: Heart failure type: unspecified Heart failure chronicity: chronic Qualified Code(s): I50.9 - Heart failure, unspecified (8) HTN (hypertension) Priority: Secondary Status: Chronic Qualifiers: Hypertension type: essential hypertension Qualified Code(s): I10 - Essential (primary) hypertension (9) HLD (hyperlipidemia) Priority: Secondary Status: Chronic Qualifiers: Hyperlipidemia type: pure hypercholesterolemia Qualified Code(s): E78.00 - Pure hypercholesterolemia, unspecified; E78.0 - Pure hypercholesterolemia (10) Anemia Priority: Secondary Status: Chronic Qualifiers: Anemia type: unspecified type Qualified Code(s): D64.9 - Anemia, unspecified Hospital course: Patient is a 62-year-old female with past medical history significant for arthritis, CHF, COPD, DVT, diabetes, GERD, HLD, HTN, migraines, osteoporosis, ESRD on dialysis, and thyroid disease presents from the ER with chief complaint of chest pain that began today while she was receiving dialysis. Patient states she was approximately 20 minutes into dialysis when she began having CP that she describes as centralized sharp/stabbing pain w/radiation to left breast and left arm. Patient was sent to the ER for further evaluation. In the ER, her first 2 sets of cardiac biomarkers are negative. Patient was admitted to the medical surgical floor for ACS rule out. During patients hospital stay her cardiac biomarkers were negative and her symptoms resolved. Patient will follow-up with cardiology as an outpatient. - Time Spent with Patient Total time spent providing and/or coordinating discharge services: Less than 30 minutes - Discharge Medications Home Medications: Meclizine [Antivert] 25 mg PO TID 09/12/14 [History] Allopurinol [Zyloprim 100 MG] 100 mg PO DAILY 03/22/15 [History] DiphenhydraMINE [Benadryl] 25 mg PO TID 03/22/15 [History] Exenatide Microspheres [Bydureon Pen] 2 mg SQ WE 03/22/15 [History] Lidocaine Patch [Lidoderm 5% patch] 1 patch TP DAILY 03/22/15 [History] Nitroglycerin [Nitrostat] 0.4 mg SL Q5M PRN 03/22/15 [History] Promethazine [Phenergan] 25 mg PO TID 03/22/15 [History] clonazePAM [Klonopin] 1 mg PO HS 03/22/15 [History] Albuterol Neb [AccuNeb] 1.25 mg IH QID 05/06/16 [History] Nystatin POWDER [Nystop] 1 appl TP BID 05/06/16 [History] Rosuvastatin [Crestor] 20 mg PO HS 05/06/16 [History] Acetaminophen [Tylenol] 650 mg PO Q4-6H PRN 11/10/16 [History] Omeprazole [PriLOSEC] 40 mg PO DAILY 11/10/16 [History] Gabapentin [Neurontin] 100 mg PO TID #90 capsule 11/27/16 [Rx] Albuterol Sulfate [Ventolin Hfa] 2 puff IH Q4H PRN 08/12/17 [History] Calcium Acetate [Phos-LO] 1,334 mg PO TID 08/12/17 [History] Cyclobenzaprine [Flexeril] 10 mg PO TID 08/12/17 [History] Docusate [Colace] 100 mg PO TID 08/12/17 [History] Doxepin HCl 50 mg PO HS 08/12/17 [History] Furosemide [Lasix] 40 mg PO QAM 08/12/17 [History] Insulin ASPART [Novolog Flexpen] 32 unit SQ TIDAC 08/12/17 [History] Levothyroxine Sodium [Levoxyl] 250 mcg PO QAM 08/12/17 [History] Metoprolol XL (24 HR) Succ [Toprol Xl] 25 mg PO DAILY 08/12/17 [History] Warfarin [Coumadin] 5 mg PO DAILY 08/12/17 [History] hydrOXYzine HCl [Hydroxyzine HCl] 25 mg PO TID 08/12/17 [History] Isosorbide MONOnitrate (24 HR) [Imdur] 120 mg PO QPM 30 Days #30 tab.er.24h 05/28 [Rx] amLODIPine [Norvasc] 2.5 mg PO DAILY #30 tablet 09/04/17 [Rx] Ergocalciferol (VITAMIN D2) [Vitamin D2] 50,000 unit PO QWEEK 09/23/17 [History] Furosemide [Lasix] 20 mg PO QPM 09/23/17 [History] Furosemide [Lasix] 40 mg PO HS 09/23/17 [History] Insulin Glargine,Hum.rec.anlog [Lantus Solostar] 100 unit SQ BID 09/23/17 [ History] Allergies/Adverse Reactions: 3 Allergy/AdvReac Type Severity Reaction Status Date / Time aspirin Allergy Hives Verified 10/09/17 06:39 cephalexin [From Keflex] Allergy Difficulty Verified 10/09/17 06:39 Breathing Cortisone Allergy See Verified 10/09/17 06:39 Comments ibuprofen Allergy Hives Verified 10/09/17 06:39 Iodinated Contrast- Oral and Allergy See Verified 10/09/17 06:39 IV Dye Comments [Iodinated Contrast Media - IV Dye] lidocaine [From Xylocaine] Allergy See Verified 10/09/17 06:39 Comments loratadine [From Claritin] Allergy Hives Verified 10/09/17 06:39 Penicillins Allergy See Verified 10/09/17 06:39 Comments Procaine [From Novocain] Allergy See Verified 10/09/17 06:39 Comments propoxyphene [From Darvon] Allergy See Verified 10/09/17 06:39 Comments pseudoephedrine Allergy Hives Verified 10/09/17 06:39 [From Sudafed] ropinirole [From Requip] Allergy See Verified 10/09/17 06:39 Comments acetaminophen AdvReac See Verified 10/09/17 06:39 Comments albuterol AdvReac Shakiness Verified 10/09/17 06:39 calcium AdvReac See Verified 10/09/17 06:39 Comments ceftriaxone [From Rocephin] AdvReac See Verified 10/09/17 06:39 Comments clindamycin AdvReac Hypotension Verified 10/09/17 06:39 codeine AdvReac Hypertensio Verified 10/09/17 06:39 n doxycycline AdvReac See Verified 10/09/17 06:39 Comments famotidine AdvReac See Verified 10/09/17 06:39 Comments hydrocodone AdvReac See Verified 10/09/17 06:39 Comments hydrocortisone AdvReac Hypertensio Verified 10/09/17 06:39 n ipratropium AdvReac See Verified 10/09/17 06:39 Comments methylprednisolone AdvReac Hypertensio Verified 10/09/17 06:39 [From Solu-Medrol] n Neomycin AdvReac See Verified 10/09/17 06:39 Comments NSAIDS (Non-Steroidal AdvReac See Verified 10/09/17 06:39 Anti-Inflamma Comments prednisone AdvReac Hypertensio Verified 10/09/17 06:39 n Sulfa (Sulfonamide AdvReac See Verified 10/09/17 06:39 Antibiotics) Comments terfenadine AdvReac See Verified 10/09/17 06:39 Comments tramadol AdvReac See Verified 10/09/17 06:39 Comments Date of admission: 10/10/17 09:43 Primary care physician: Mauro Dockery MD Consults: 10/10/17 10:00 Consult to Dialysis [CONS] ONCE 10/10/17 12:24 Consult to Eng[employer] [CONS] Routine Reason for SW Consult: DC planning 10/10/17 14:34 Consult to Occupational Therapy [CONS] Routine Comment: Evaluate, develop and implement POC Reason for Consult: Patient reports difficulty with ambulation. Please assess patient for ambulation strength, safety, stability, and possible home assistive/rehabilitation needs for post- discharge planning. Does patient have active BEDREST order?: No Is patient medically & hemodynamically stable?: Yes Patient assessed for mobility or mobilized this visit?: No 10/10/17 14:40 Consult to Physical Therapy [CONS] Routine Comment: Evaluate, develop and implement POC Reason for Consult: Patient reports difficulty with ambulation. Please assess patient for ambulation strength, safety, stability, and possible home assistive/rehabilitation needs for post- discharge planning. Does patient have active BEDREST order?: No Is patient medically & hemodynamically stable?: Yes Patient assessed for mobility or mobilized this visit?: No 10/10/17 15:46 Consult to Nephrology [CONS] Routine Consulting Provider: Will Del Castillo Reason for Consult: dialysis Call Completed: Yes 10/11/17 08:30 Consult to Dialysis [CONS] ONCE - Constitutional Vitals: Temp Pulse Resp BP Pulse Ox 98 F 92 18 116/100 98 10/11/17 09:30 10/11/17 08:10 10/11/17 09:30 10/11/17 11:45 10/11/17 08:10 General appearance: Present: cooperative, A&O X 3, morbidly obese, pleasant, no acute distress, answers questions appropriately Exam: See below - Cardiovascular Cardiovascular exam: Present: RRR, +S1, +S2. Absent: diastolic murmur, gallop, rubs, systolic murmur - Patient Status Disposition: Home, Self-Care Condition: Fair - Discharge Instructions Follow Up With: Mauro Dockery MD [Primary Care Provider] -
--- NOTE | 2017-10-11 14:05 | Physician Discharge Referral ---
Home Health/Hosp Referral Info Transfer to: Home Health - Diagnosis (1) Diabetes Status: Chronic (2) Hypothyroidism Status: Chronic (3) Morbid obesity with BMI of 50.0-59.9, adult Status: Chronic (4) Chest pain Status: Acute (5) COPD (chronic obstructive pulmonary disease) Status: Chronic (6) ESRD (end stage renal disease) on dialysis Status: Chronic (7) CHF (congestive heart failure) Status: Chronic (8) HTN (hypertension) Status: Chronic (9) HLD (hyperlipidemia) Status: Chronic (10) Anemia Status: Chronic - Respiratory Orders Smoking Cessation: Smoking cessation has been advised. For more information, call the [place] Tobacco Quit Line at 5-056-OVYF-NOW. - Services Needed Following services are medically necessary services: Nursing, Home Health Aide - Transfer Medications Home Medications: Meclizine [Antivert] 25 mg PO TID 09/12/14 [History] Allopurinol [Zyloprim 100 MG] 100 mg PO DAILY 03/22/15 [History] DiphenhydraMINE [Benadryl] 25 mg PO TID 03/22/15 [History] Exenatide Microspheres [Bydureon Pen] 2 mg SQ WE 03/22/15 [History] Lidocaine Patch [Lidoderm 5% patch] 1 patch TP DAILY 03/22/15 [History] Nitroglycerin [Nitrostat] 0.4 mg SL Q5M PRN 03/22/15 [History] Promethazine [Phenergan] 25 mg PO TID 03/22/15 [History] clonazePAM [Klonopin] 1 mg PO HS 03/22/15 [History] Albuterol Neb [AccuNeb] 1.25 mg IH QID 05/06/16 [History] Nystatin POWDER [Nystop] 1 appl TP BID 05/06/16 [History] Rosuvastatin [Crestor] 20 mg PO HS 05/06/16 [History] Acetaminophen [Tylenol] 650 mg PO Q4-6H PRN 11/10/16 [History] Omeprazole [PriLOSEC] 40 mg PO DAILY 11/10/16 [History] Gabapentin [Neurontin] 100 mg PO TID #90 capsule 11/27/16 [Rx] Albuterol Sulfate [Ventolin Hfa] 2 puff IH Q4H PRN 08/12/17 [History] Calcium Acetate [Phos-LO] 1,334 mg PO TID 08/12/17 [History] Cyclobenzaprine [Flexeril] 10 mg PO TID 08/12/17 [History] Docusate [Colace] 100 mg PO TID 08/12/17 [History] Doxepin HCl 50 mg PO HS 08/12/17 [History] Furosemide [Lasix] 40 mg PO QAM 08/12/17 [History] Insulin ASPART [Novolog Flexpen] 32 unit SQ TIDAC 08/12/17 [History] Levothyroxine Sodium [Levoxyl] 250 mcg PO QAM 08/12/17 [History] Metoprolol XL (24 HR) Succ [Toprol Xl] 25 mg PO DAILY 08/12/17 [History] Warfarin [Coumadin] 5 mg PO DAILY 08/12/17 [History] hydrOXYzine HCl [Hydroxyzine HCl] 25 mg PO TID 08/12/17 [History] Isosorbide MONOnitrate (24 HR) [Imdur] 120 mg PO QPM 30 Days #30 tab.er.24h 05/28 [Rx] amLODIPine [Norvasc] 2.5 mg PO DAILY #30 tablet 09/04/17 [Rx] Ergocalciferol (VITAMIN D2) [Vitamin D2] 50,000 unit PO QWEEK 09/23/17 [History] Furosemide [Lasix] 20 mg PO QPM 09/23/17 [History] Furosemide [Lasix] 40 mg PO HS 09/23/17 [History] Insulin Glargine,Hum.rec.anlog [Lantus Solostar] 100 unit SQ BID 09/23/17 [ History] Allergies/Adverse Reactions: 3 Allergy/AdvReac Type Severity Reaction Status Date / Time aspirin Allergy Hives Verified 10/09/17 06:39 cephalexin [From Keflex] Allergy Difficulty Verified 10/09/17 06:39 Breathing Cortisone Allergy See Verified 10/09/17 06:39 Comments ibuprofen Allergy Hives Verified 10/09/17 06:39 Iodinated Contrast- Oral and Allergy See Verified 10/09/17 06:39 IV Dye Comments [Iodinated Contrast Media - IV Dye] lidocaine [From Xylocaine] Allergy See Verified 10/09/17 06:39 Comments loratadine [From Claritin] Allergy Hives Verified 10/09/17 06:39 Penicillins Allergy See Verified 10/09/17 06:39 Comments Procaine [From Novocain] Allergy See Verified 10/09/17 06:39 Comments propoxyphene [From Darvon] Allergy See Verified 10/09/17 06:39 Comments pseudoephedrine Allergy Hives Verified 10/09/17 06:39 [From Sudafed] ropinirole [From Requip] Allergy See Verified 10/09/17 06:39 Comments acetaminophen AdvReac See Verified 10/09/17 06:39 Comments albuterol AdvReac Shakiness Verified 10/09/17 06:39 calcium AdvReac See Verified 10/09/17 06:39 Comments ceftriaxone [From Rocephin] AdvReac See Verified 10/09/17 06:39 Comments clindamycin AdvReac Hypotension Verified 10/09/17 06:39 codeine AdvReac Hypertensio Verified 10/09/17 06:39 n doxycycline AdvReac See Verified 10/09/17 06:39 Comments famotidine AdvReac See Verified 10/09/17 06:39 Comments hydrocodone AdvReac See Verified 10/09/17 06:39 Comments hydrocortisone AdvReac Hypertensio Verified 10/09/17 06:39 n ipratropium AdvReac See Verified 10/09/17 06:39 Comments methylprednisolone AdvReac Hypertensio Verified 10/09/17 06:39 [From Solu-Medrol] n Neomycin AdvReac See Verified 10/09/17 06:39 Comments NSAIDS (Non-Steroidal AdvReac See Verified 10/09/17 06:39 Anti-Inflamma Comments prednisone AdvReac Hypertensio Verified 10/09/17 06:39 n Sulfa (Sulfonamide AdvReac See Verified 10/09/17 06:39 Antibiotics) Comments terfenadine AdvReac See Verified 10/09/17 06:39 Comments tramadol AdvReac See Verified 10/09/17 06:39 Comments Certification: Further, I certify that my clinical findings support that this patient is homebound (i.e. absences from home require considerable and taxing effort and are for medical reasons or jehovah's witness services or infrequently or short duration when for other reasons) because: Homebound Reason: Patient requires assistance of a person or device to safely leave home Attestation: My signature below is to certify that this patient is under my care and that I, or nurse practitioner, or a physician's insurance claims assistant working with me, has a face-to -face encounter with this patient.
[2017-10-11 14:43] VITALS: BP 127/66
[2017-10-11] MEDS ORDERED: Furosemide 20 MG TABLET PO SCH (15:00)
[2017-10-11] MEDS ORDERED: *HR* Warfarin 5 MG TABLET PO ONE (18:00)
--- NOTE | 2017-10-12 16:24 | Electrocardiograph Report ---
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
--- NOTE | 2017-10-14 21:20 | Electrocardiograph Report ---
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
== END 2017-10-11 14:45 | disposition home health service (06) ==
LOC: EMEROOARM 07:07 → 2ANU 07:07 → SUATTDRO 09:43 → 2ANU 11:24
PROVIDERS: ADMIT Student in an Organized Health Care Education/Training Program; ATTEND Hospitalist

== ENCOUNTER 2017-12-26 17:24 | Observation (INO) ==
--- NOTE | 2017-12-26 18:03 | Emergency Department Note ---
Disposition Clinical Impression: Ulcer of abdomen wall, limited to breakdown of skin Disposition: Admitted As Inpatient General Adult HPI - General Chief complaint: ED Wound/Laceration Stated complaint: "sore on abd smells foul/green drainage" Time Seen by Provider: 12/26/17 17:36 Source: patient Limitations: no limitations Nursing Notes Reviewed: Yes Vital Signs Reviewed: Yes - History of Present Illness HPI Narrative: ED ATTESTATION NOTE: I examined this patient and my medical decision-making was reviewed with the Resident Physician/ACETYLENE TORCH SOLDERER/PA/Student. I have personally performed a face to face evaluation on this patient & I agree with the documented findings, disposition and treatment plan as described except to the extent set forth below. Patient was seen with emergency medicine resident Poonam Keith please see copy of her note for details of this encounter Briefly: 62-year-old morbidly obese female insulin-dependent diabetic presents with 3 weeks of worsening pain over redness and swelling of a ulcer on her left lower abdominal wall. Patient is a sugars have been between 2:15 350 she only keeps him around 100 150. Patient says she had MAXIMUM TEMPERATURE up to 99 possibly 100 at home. Has not been on antibiotics recently. Her tetanus is up-to-date. Physical examination show she has about a 5 x 3 cm eschar area odorous consistent with possible pseudomonas versus MRSA with surrounding induration and erythema. There is no purulent drainage it goes about a centimeter deep. Patient is afebrile with stable vital signs. Patient will get screening labs patient had a wound culture sent off patient will be admitted wi th IV antibiotics. Admission disposition pending. Pain Scale: 10 - Related Data Home Medications Medication Instructions Recorded Confirmed Meclizine [Antivert] 25 mg PO TID 09/12/14 10/10/17 Allopurinol [Zyloprim 100 MG] 100 mg PO DAILY 03/22/15 10/10/17 DiphenhydraMINE [Benadryl] 25 mg PO TID 03/22/15 10/10/17 Exenatide Microspheres [Bydureon 2 mg SQ WE 03/22/15 10/10/17 Pen] Lidocaine Patch [Lidoderm 5% patch] 1 patch TP DAILY 03/22/15 10/10/17 Nitroglycerin [Nitrostat] 0.4 mg SL Q5M PRN 03/22/15 10/10/17 Promethazine [Phenergan] 25 mg PO TID 03/22/15 10/10/17 clonazePAM [Klonopin] 1 mg PO HS 03/22/15 10/10/17 Albuterol Neb [AccuNeb] 1.25 mg IH QID 05/06/16 10/10/17 Nystatin POWDER [Nystop] 1 appl TP BID 05/06/16 10/10/17 Rosuvastatin [Crestor] 20 mg PO HS 05/06/16 10/10/17 Acetaminophen [Tylenol] 650 mg PO Q4-6H PRN 11/10/16 10/10/17 Omeprazole [PriLOSEC] 40 mg PO DAILY 11/10/16 10/10/17 Albuterol Sulfate [Ventolin Hfa] 2 puff IH Q4H PRN 08/12/17 10/10/17 Calcium Acetate [Phos-LO] 1,334 mg PO TID 08/12/17 10/10/17 Cyclobenzaprine [Flexeril] 10 mg PO TID 08/12/17 10/10/17 Docusate [Colace] 100 mg PO TID 08/12/17 10/10/17 Doxepin HCl 50 mg PO HS 08/12/17 10/10/17 Furosemide [Lasix] 40 mg PO QAM 08/12/17 10/10/17 Insulin ASPART [Novolog Flexpen] 32 unit SQ TIDAC 08/12/17 10/10/17 Levothyroxine Sodium [Levoxyl] 250 mcg PO QAM 08/12/17 10/10/17 Metoprolol XL (24 HR) Succ [Toprol 25 mg PO DAILY 08/12/17 10/10/17 Xl] Warfarin [Coumadin] 5 mg PO DAILY 08/12/17 10/10/17 hydrOXYzine HCl [Hydroxyzine HCl] 25 mg PO TID 08/12/17 10/10/17 Ergocalciferol (VITAMIN D2) 50,000 unit PO QWEEK 09/23/17 10/10/17 [Vitamin D2] Furosemide [Lasix] 20 mg PO QPM 09/23/17 10/10/17 Furosemide [Lasix] 40 mg PO HS 09/23/17 10/10/17 Insulin Glargine,Hum.rec.anlog 100 unit SQ BID 09/23/17 10/10/17 [Lantus Solostar] Previous Rx's Medication Instructions Recorded Gabapentin [Neurontin] 100 mg PO TID #90 capsule 11/27/16 Isosorbide MONOnitrate (24 HR) 120 mg PO QPM 30 Days #30 08/13/17 [Imdur] tab.er.24h amLODIPine [Norvasc] 2.5 mg PO DAILY #30 tablet 09/04/17 Allergies Allergy/AdvReac Type Severity Reaction Status Date / Time aspirin Allergy Hives Verified 10/09/17 06:39 cephalexin [From Keflex] Allergy Difficulty Verified 10/09/17 06:39 Breathing Cortisone Allergy See Verified 10/09/17 06:39 Comments ibuprofen Allergy Hives Verified 10/09/17 06:39 Iodinated Contrast- Oral and Allergy See Verified 10/09/17 06:39 IV Dye Comments [Iodinated Contrast Media - IV Dye] lidocaine [From Xylocaine] Allergy See Verified 10/09/17 06:39 Comments loratadine [From Claritin] Allergy Hives Verified 10/09/17 06:39 Penicillins Allergy See Verified 10/09/17 06:39 Comments Procaine [From Novocain] Allergy See Verified 10/09/17 06:39 Comments propoxyphene [From Darvon] Allergy See Verified 10/09/17 06:39 Comments pseudoephedrine Allergy Hives Verified 10/09/17 06:39 [From Sudafed] ropinirole [From Requip] Allergy See Verified 10/09/17 06:39 Comments acetaminophen AdvReac See Verified 10/09/17 06:39 Comments albuterol AdvReac Shakiness Verified 10/09/17 06:39 calcium AdvReac See Verified 10/09/17 06:39 Comments ceftriaxone [From Rocephin] AdvReac See Verified 10/09/17 06:39 Comments clindamycin AdvReac Hypotension Verified 10/09/17 06:39 codeine AdvReac Hypertensio Verified 10/09/17 06:39 n doxycycline AdvReac See Verified 10/09/17 06:39 Comments famotidine AdvReac See Verified 10/09/17 06:39 Comments hydrocodone AdvReac See Verified 10/09/17 06:39 Comments hydrocortisone AdvReac Hypertensio Verified 10/09/17 06:39 n ipratropium AdvReac See Verified 10/09/17 06:39 Comments methylprednisolone AdvReac Hypertensio Verified 10/09/17 06:39 [From Solu-Medrol] n Neomycin AdvReac See Verified 10/09/17 06:39 Comments NSAIDS (Non-Steroidal AdvReac See Verified 10/09/17 06:39 Anti-Inflamma Comments prednisone AdvReac Hypertensio Verified 10/09/17 06:39 n Sulfa (Sulfonamide AdvReac See Verified 10/09/17 06:39 Antibiotics) Comments terfenadine AdvReac See Verified 10/09/17 06:39 Comments tramadol AdvReac See Verified 10/09/17 06:39 Comments Past Medical History - Past Medical History Medical history: Reports: arthritis, CHF, COPD, DVT, diabetes, dialysis, GERD, hyperlipidemia, hypertension, migraine, osteoporosis, renal disease, thyroid disease Surgical history: Reports: appendectomy, hysterectomy, orthopedic, other, IVC filter Psychiatric history: Reports: anxiety, depression 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 - Social History Smoking Status: Former smoker Smokeless Tobacco Status: No Alcohol use: Reports: none Drug use: Reports: none Physical Exam - General Limitations: no limitations General appearance: alert, in no apparent distress Course Vital Signs Temperature 97.8 F 12/26/17 17:28 Pulse Rate 100 12/26/17 17:28 Respiratory Rate 18 12/26/17 17:28 Blood Pressure 180/94 12/26/17 17:28 O2 Sat by Pulse Oximetry 99 12/26/17 17:28 Temperature 97.8 F 12/26/17 17:38 Pulse Rate 100 12/26/17 17:38 Respiratory Rate 18 12/26/17 17:38 Blood Pressure 180/94 12/26/17 17:38 O2 Sat by Pulse Oximetry 99 12/26/17 17:38 Oxygen Delivery Oxygen Delivery Room Air
[2017-12-26] MEDS ORDERED: MetroNIDAZOLE 500 MG/100 ML 500 MG/100 ML BAG IVPB ONE (18:09)
[2017-12-26] MEDS ORDERED: Levofloxacin 750 MG/150 ML 750 MG/150 ML BAG IVPB ONE (18:09)
[2017-12-26 18:18] LABS: Basophils % 0.3 %; Eosinophils # 0.2 K/mcL (0.0-0.6); Eosinophils % 3.6 %; Hematocrit 37.3 % (35.3-44.9); Hemoglobin 11.1 g/dL (11.5-15.4); Immature Granulocytes % 0.7 % (0-4); Lymphocytes # 1.3 K/mcL (0.6-4.6); Lymphocytes % 21.4 %; Mean Corpuscular HGB Conc 29.8 g/dL (31.6-35.5); Mean Corpuscular Hemoglobin 28.1 pg (28.0-33.3); Mean Corpuscular Volume 94.4 fL (83.0-100.0); Mean Platelet Volume 9.5 fL (9.4-12.4); Monocytes # 0.5 K/mcL (0.0-1.3); Monocytes % 7.7 %; Neutrophils # 4.1 K/mcL (1.6-8.9); Platelet Count 238 K/mcL (140-400); Red Blood Count 3.95 M/mcL (3.82-4.97); Segmented Neutrophils % 66.3 %
--- NOTE | 2017-12-26 18:20 | Emergency Department Note ---
Addendum entered and electronically signed by Poonam Keith DO 12/26/17 18:56: Patient's laboratory analysis shows no leukocytosis but due to patient's ulcer worsening acutely will plan to admit her for IV antibiotics and possible surgical consultation for debridement. Patient is alert and oriented 3 and hemodynamically stable. Patient agrees with this plan. I spoke with the hospitalist applications packager Dr. Franco who agrees to accept the patient at this time. Original Note: Disposition Clinical Impression: Ulcer of abdomen wall, limited to breakdown of skin Disposition: Admitted As Inpatient Referrals: Mauro Dockery MD [Primary Care Provider] - Forms: ED Satisfaction Letter General Adult HPI - General Chief complaint: ED Wound/Laceration Stated complaint: "sore on abd smells foul/green drainage" Time Seen by Provider: 12/26/17 17:36 Source: patient Limitations: no limitations Nursing Notes Reviewed: Yes Vital Signs Reviewed: Yes - History of Present Illness HPI Narrative: 62-year-old female with complex past medical history including insulin-dependent diabetes and end-stage renal disease currently on dialysis presenting to the emergency department for a nonhealing wound on her pannus. Patient states she has had it for approximately one month but over the last week it has progressively gotten worse. Has not tried any antibiotics at home for this. Patient states she has been feeling not well at home but denies any fevers, vomiting or abdominal pain. Denies any chest pain or shortness of breath. She states her sugars have been running higher than normal but has been using sliding scale to control at home. Patient denies any fevers. Patient states she had similar wound on her right lower extremity that was a diabetic ulcer that needed debridement a few years ago. Patient states this one looks exactly the same. Pain Scale: 10 - Related Data Home Medications Medication Instructions Recorded Confirmed Meclizine [Antivert] 25 mg PO TID 09/12/14 10/10/17 Allopurinol [Zyloprim 100 MG] 100 mg PO DAILY 03/22/15 10/10/17 DiphenhydraMINE [Benadryl] 25 mg PO TID 03/22/15 10/10/17 Exenatide Microspheres [Bydureon 2 mg SQ WE 03/22/15 10/10/17 Pen] Lidocaine Patch [Lidoderm 5% patch] 1 patch TP DAILY 03/22/15 10/10/17 Nitroglycerin [Nitrostat] 0.4 mg SL Q5M PRN 03/22/15 10/10/17 Promethazine [Phenergan] 25 mg PO TID 03/22/15 10/10/17 clonazePAM [Klonopin] 1 mg PO HS 03/22/15 10/10/17 Albuterol Neb [AccuNeb] 1.25 mg IH QID 05/06/16 10/10/17 Nystatin POWDER [Nystop] 1 appl TP BID 05/06/16 10/10/17 Rosuvastatin [Crestor] 20 mg PO HS 05/06/16 10/10/17 Acetaminophen [Tylenol] 650 mg PO Q4-6H PRN 11/10/16 10/10/17 Omeprazole [PriLOSEC] 40 mg PO DAILY 11/10/16 10/10/17 Albuterol Sulfate [Ventolin Hfa] 2 puff IH Q4H PRN 08/12/17 10/10/17 Calcium Acetate [Phos-LO] 1,334 mg PO TID 08/12/17 10/10/17 Cyclobenzaprine [Flexeril] 10 mg PO TID 08/12/17 10/10/17 Docusate [Colace] 100 mg PO TID 08/12/17 10/10/17 Doxepin HCl 50 mg PO HS 08/12/17 10/10/17 Furosemide [Lasix] 40 mg PO QAM 08/12/17 10/10/17 Insulin ASPART [Novolog Flexpen] 32 unit SQ TIDAC 08/12/17 10/10/17 Levothyroxine Sodium [Levoxyl] 250 mcg PO QAM 08/12/17 10/10/17 Metoprolol XL (24 HR) Succ [Toprol 25 mg PO DAILY 08/12/17 10/10/17 Xl] Warfarin [Coumadin] 5 mg PO DAILY 08/12/17 10/10/17 hydrOXYzine HCl [Hydroxyzine HCl] 25 mg PO TID 08/12/17 10/10/17 Ergocalciferol (VITAMIN D2) 50,000 unit PO QWEEK 09/23/17 10/10/17 [Vitamin D2] Furosemide [Lasix] 20 mg PO QPM 09/23/17 10/10/17 Furosemide [Lasix] 40 mg PO HS 09/23/17 10/10/17 Insulin Glargine,Hum.rec.anlog 100 unit SQ BID 09/23/17 10/10/17 [Lantus Solostar] Previous Rx's Medication Instructions Recorded Gabapentin [Neurontin] 100 mg PO TID #90 capsule 11/27/16 Isosorbide MONOnitrate (24 HR) 120 mg PO QPM 30 Days #30 08/13/17 [Imdur] tab.er.24h amLODIPine [Norvasc] 2.5 mg PO DAILY #30 tablet 09/04/17 Allergies Allergy/AdvReac Type Severity Reaction Status Date / Time aspirin Allergy Hives Verified 10/09/17 06:39 cephalexin [From Keflex] Allergy Difficulty Verified 10/09/17 06:39 Breathing Cortisone Allergy See Verified 10/09/17 06:39 Comments ibuprofen Allergy Hives Verified 10/09/17 06:39 Iodinated Contrast- Oral and Allergy See Verified 10/09/17 06:39 IV Dye Comments [Iodinated Contrast Media - IV Dye] lidocaine [From Xylocaine] Allergy See Verified 10/09/17 06:39 Comments loratadine [From Claritin] Allergy Hives Verified 10/09/17 06:39 Penicillins Allergy See Verified 10/09/17 06:39 Comments Procaine [From Novocain] Allergy See Verified 10/09/17 06:39 Comments propoxyphene [From Darvon] Allergy See Verified 10/09/17 06:39 Comments pseudoephedrine Allergy Hives Verified 10/09/17 06:39 [From Sudafed] ropinirole [From Requip] Allergy See Verified 10/09/17 06:39 Comments acetaminophen AdvReac See Verified 10/09/17 06:39 Comments albuterol AdvReac Shakiness Verified 10/09/17 06:39 calcium AdvReac See Verified 10/09/17 06:39 Comments ceftriaxone [From Rocephin] AdvReac See Verified 10/09/17 06:39 Comments clindamycin AdvReac Hypotension Verified 10/09/17 06:39 codeine AdvReac Hypertensio Verified 10/09/17 06:39 n doxycycline AdvReac See Verified 10/09/17 06:39 Comments famotidine AdvReac See Verified 10/09/17 06:39 Comments hydrocodone AdvReac See Verified 10/09/17 06:39 Comments hydrocortisone AdvReac Hypertensio Verified 10/09/17 06:39 n ipratropium AdvReac See Verified 10/09/17 06:39 Comments methylprednisolone AdvReac Hypertensio Verified 10/09/17 06:39 [From Solu-Medrol] n Neomycin AdvReac See Verified 10/09/17 06:39 Comments NSAIDS (Non-Steroidal AdvReac See Verified 10/09/17 06:39 Anti-Inflamma Comments prednisone AdvReac Hypertensio Verified 10/09/17 06:39 n Sulfa (Sulfonamide AdvReac See Verified 10/09/17 06:39 Antibiotics) Comments terfenadine AdvReac See Verified 10/09/17 06:39 Comments tramadol AdvReac See Verified 10/09/17 06:39 Comments All systems ED: reviewed and negative except as stated. Constitutional: Denies: fever, chills Eyes: Reports: as per HPI ENT ED: Reports: as per HPI Cardiovascular: Denies: chest pain, palpitations Respiratory: Denies: cough, dyspnea Gastrointestinal: Reports: nausea. Denies: abdominal pain, vomiting Genitourinary: Reports: as per HPI Musculoskeletal: Reports: as per HPI Integumentary: Reports: other (Diabetic ulcer) Neurological: Reports: as per HPI Psychiatric: Reports: as per HPI Endocrine: Reports: as per HPI Hematological/Lymphatic: Reports: as per HPI Allergic/Immunologic: Reports: as per HPI Past Medical History - Past Medical History Attestation: Yes The following information was validated with the patient. Medical history: Reports: arthritis, CHF, COPD, DVT, diabetes, dialysis, GERD, hyperlipidemia, hypertension, migraine, osteoporosis, renal disease, thyroid disease Surgical history: Reports: appendectomy, hysterectomy, orthopedic, other, IVC filter Psychiatric history: Reports: anxiety, depression [employer] history: Reports: bilateral 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 - Social History Smoking Status: Former smoker Smokeless Tobacco Status: No Alcohol use: Reports: none Drug use: Reports: none Physical Exam - General Limitations: no limitations General appearance: alert, in no apparent distress - Head Head exam: atraumatic, normocephalic, normal inspection - Eye Eye exam: Present: normal appearance. Absent: scleral icterus, conjunctival injection - ENT ENT exam: normal exam, mucous membranes moist - Neck Neck exam: Present: normal inspection, full ROM. Absent: tenderness, meningismus - Chest Chest inspection: Present: normal inspection, symmetric chest wall rise. Absent: tenderness, rash - Respiratory Respiratory exam: Present: normal lung sounds bilaterally. Absent: respiratory distress, wheezes - Cardiovascular Cardiovascular exam: Present: normal rhythm, tachycardia, normal heart sounds - Abdominal Exam Abdominal exam: Present: soft, Non-Tender, other (Large area of ulceration noted to the left lower pannus. Eschar and foul smell emanating from the site.). Absent: distention, guarding, rebound - Neurological Exam Neurological exam: Present: alert, oriented X3 - Psychiatric Psychiatric exam: Present: normal affect, normal mood - Skin Skin exam: Present: warm, intact Course Course Narrative: 62-year-old female presenting to the emergency department for wound on her abdomen. Patient has had it for approximately 1 month and acutely worse over the past week and a half. In the room the patient is alert and oriented 3 and hemodynamically stable. Patient does have a large, open, eschar wound on her pannus. At this time we will perform basic laboratory analysis and provide the patient with IV antibiotics for diabetic ulcer. Disposition most likely admission but pending results. Patient agrees with this plan. Vital Signs Temperature 97.8 F 12/26/17 17:28 Pulse Rate 100 12/26/17 17:28 Respiratory Rate 18 12/26/17 17:28 Blood Pressure 180/94 12/26/17 17:28 O2 Sat by Pulse Oximetry 99 12/26/17 17:28 Temperature 97.8 F 12/26/17 17:38 Pulse Rate 100 12/26/17 17:38 Respiratory Rate 18 12/26/17 17:38 Blood Pressure 180/94 12/26/17 17:38 O2 Sat by Pulse Oximetry 99 12/26/17 17:38 Oxygen Delivery Oxygen Delivery Room Air Medical Decision Making - Lab Data Result diagrams: 12/26/17 18:04 Lab Results 12/26/17 Range/Units 18:04 WBC 6.1 (4.3-11.1) K/mcL RBC 3.95 (3.82-4.97) M/mcL Hgb 11.1 L (11.5-15.4) g/dL Hct 37.3 (35.3-44.9) % MCV 94.4 (83.0-100.0) fL MCH 28.1 (28.0-33.3) pg MCHC 29.8 L (31.6-35.5) g/dL RDW 18.0 H (11.5-14.5) % Plt Count 238 (140-400) K/mcL MPV 9.5 (9.4-12.4) fL Immature Gran % 0.7 (0-4) % Seg Neutrophils % 66.3 % Lymphocytes % 21.4 % Monocytes % 7.7 % Eosinophils % 3.6 % Basophils % 0.3 % Neutrophils # 4.1 (1.6-8.9) K/mcL Lymphocytes # 1.3 (0.6-4.6) K/mcL Monocytes # 0.5 (0.0-1.3) K/mcL Eosinophils # 0.2 (0.0-0.6) K/mcL Basophils # 0.0 (0.0-0.2) K/mcL
[2017-12-26 19:25] LABS: Calcium 9.3 mg/dL (8.6-10.3); Potassium 4.6 mEq/L (3.5-5.1)
--- NOTE | 2017-12-26 19:35 | Internal Med History&Physical ---
<Vazquez Johnson - Last Filed: 12/26/17 23:42> Date of Encounter: 12/26/17 Time of Encounter: 19:33 Internal Medicine - H&P: HPI Chief complaint: Nonhealing abdominal wound Admitted From: Home History of present illness: Jenny Mars is a 62-year-old female with a PMH of morbid obesity, arthritis, CHF, COPD, DVT, insulin-dependent diabetes mellitus, dialysis, GERD, hyperlipidemia, hypertension, migraine, osteoporosis, renal disease, thyroid disease who presented to [facility] ED on 12/26/17 for a non-healing wound on her pannus. Patient reports that she had had it for approximately one month; but it has gotten worse over the last week. Patient reports a similar wound on her RLE in the past that was a diabetic ulcer requiring debridement. She reports that her sugars have been running higher than normal. She reports that her glucose has been between 215 and 350. She has not used any antibiotics for her wound. Reports that this is very similar in appearance to her diabetic ulcer. Wound is approximately 5 x 3 cm. No purulent drainage; goes about 1 cm deep. Upon arrival to the emergency room, patients vital signs were as follows: Temp 97.8, HR 100, RR 18, BP 180/94, O2 sat 99. Laboratory analysis demonstrated a low hemoglobin of 11.1, sodium 135. In the ED, patient was given a one-time dose of vancomycin, Levaquin, and Flagyl. A culture of the wound was obtained, and surgery was consulted. Patient seen and examined at bedside; she reports that she has pain near her abdominal wound. Wound located in the left lower abdomen; currently dressed. Denies having any fever, chills, nausea, vomiting, diarrhea, changes in bowel/bladder habits, shortness of breath, or chest pain. She has no further complaints this time. Past Med Surg Social Fam HX - Past Medical History Medical history: arthritis, CHF, COPD, DVT, diabetes, dialysis, GERD, hyp erlipidemia, hypertension, migraine, osteoporosis, renal disease, thyroid disease Additional medical history: sleep apnea Psychiatric history: anxiety, depression - Past Surgical History Surgical History: appendectomy, hysterectomy, orthopedic, other, IVC filter Additional surgical history: carpal tunnel surgery left hand. perma cath change 2 to 3 weeks ago - Social History Smoking Status: Former smoker Smokeless Tobacco Status: No Alcohol use: none Drug use: none - Family History Father Family Member Ethnicity: Non- Living Status: Hx Family Cardiac Disorders: Yes (CHF, HTN) Hx Family GI Disorders: No Hx Family Endocrine Disorder: Yes (DM) Hx Family Neurologic Disorders: Yes Brother Family Member Ethnicity: Non- Living Status: Hx Family Cardiac Disorders: Yes (CHF, [place]) Sister Family Member Ethnicity: Non- Living Status: Hx Family Cardiac Disorders: Yes (CHF) Mother Family Member Ethnicity: Non- Living Status: Hx Family Cardiac Disorders: Yes (DVTs) Hx Family Cancer: Yes (Metastatic) Hx Family GI Disorders: No Hx Family Endocrine Disorder: Yes (DM) Internal Medicine - H&P: Meds Meclizine [Antivert] 25 mg PO TID 09/12/14 [History] DiphenhydraMINE [Benadryl] 25 mg PO TID 03/22/15 [History] Exenatide Microspheres [Bydureon Pen] 2 mg SQ WE 03/22/15 [History] Lidocaine Patch [Lidoderm 5% patch] 1 patch TP DAILY 03/22/15 [History] Nitroglycerin [Nitrostat] 0.4 mg SL Q5M PRN 03/22/15 [History] Promethazine [Phenergan] 25 mg PO TID 03/22/15 [History] clonazePAM [Klonopin] 1 mg PO HS 03/22/15 [History] Albuterol Neb [AccuNeb] 1.25 mg IH QID 05/06/16 [History] Nystatin POWDER [Nystop] 1 appl TP BID 05/06/16 [History] Acetaminophen [Tylenol] 650 mg PO Q4-6H PRN 11/10/16 [History] Omeprazole [PriLOSEC] 40 mg PO DAILY 11/10/16 [History] Gabapentin [Neurontin] 100 mg PO TID #90 capsule 11/27/16 [Rx] Albuterol Sulfate [Ventolin Hfa] 2 puff IH Q4H PRN 08/12/17 [History] Calcium Acetate [Phos-LO] 1,334 mg PO TID 08/12/17 [History] Cyclobenzaprine [Flexeril] 10 mg PO TID 08/12/17 [History] Docusate [Colace] 100 mg PO TID 08/12/17 [History] Doxepin HCl 50 mg PO HS 08/12/17 [History] Furosemide [Lasix] 40 mg PO QAM 08/12/17 [History] Insulin ASPART [Novolog Flexpen] 32 unit SQ TIDAC 08/12/17 [History] Levothyroxine Sodium [Levoxyl] 250 mcg PO QAM 08/12/17 [History] Metoprolol XL (24 HR) Succ [Toprol Xl] 25 mg PO DAILY 08/12/17 [History] Warfarin [Coumadin] 5 mg PO DAILY 08/12/17 [History] hydrOXYzine HCl [Hydroxyzine HCl] 25 mg PO TID 08/12/17 [History] Ergocalciferol (VITAMIN D2) [Vitamin D2] 50,000 unit PO QWEEK 09/23/17 [History] Furosemide [Lasix] 20 mg PO 1300 09/23/17 [History] Furosemide [Lasix] 40 mg PO QPM 09/23/17 [History] Insulin Glargine,Hum.rec.anlog [Lantus Solostar] 75 unit SQ BID 09/23/17 [History] Amlodipine Besylate 10 mg PO DAILY 12/26/17 [History] Isosorbide MONOnitrate [Isosorbide Mononitrate ER] 30 mg PO DAILY 12/26/17 [History] Rosuvastatin Calcium [Crestor] 10 mg PO QPM 12/26/17 [History] Allergy/AdvReac Type Severity Reaction Status Date / Time aspirin Allergy Hives Verified 10/09/17 06:39 cephalexin [From Keflex] Allergy Difficulty Verified 10/09/17 06:39 Breathing Cortisone Allergy See Verified 10/09/17 06:39 Comments ibuprofen Allergy Hives Verified 10/09/17 06:39 Iodinated Contrast- Oral and Allergy See Verified 10/09/17 06:39 IV Dye Comments [Iodinated Contrast Media - IV Dye] lidocaine [From Xylocaine] Allergy See Verified 10/09/17 06:39 Comments loratadine [From Claritin] Allergy Hives Verified 10/09/17 06:39 Penicillins Allergy See Verified 10/09/17 06:39 Comments Procaine [From Novocain] Allergy See Verified 10/09/17 06:39 Comments propoxyphene [From Darvon] Allergy See Verified 10/09/17 06:39 Comments pseudoephedrine Allergy Hives Verified 10/09/17 06:39 [From Sudafed] ropinirole [From Requip] Allergy See Verified 10/09/17 06:39 Comments acetaminophen AdvReac See Verified 10/09/17 06:39 Comments albuterol AdvReac Shakiness Verified 10/09/17 06:39 calcium AdvReac See Verified 10/09/17 06:39 Comments ceftriaxone [From Rocephin] AdvReac See Verified 10/09/17 06:39 Comments clindamycin AdvReac Hypotension Verified 10/09/17 06:39 codeine AdvReac Hypertensio Verified 10/09/17 06:39 n doxycycline AdvReac See Verified 10/09/17 06:39 Comments famotidine AdvReac See Verified 10/09/17 06:39 Comments hydrocodone AdvReac See Verified 10/09/17 06:39 Comments hydrocortisone AdvReac Hypertensio Verified 10/09/17 06:39 n ipratropium AdvReac See Verified 10/09/17 06:39 Comments methylprednisolone AdvReac Hypertensio Verified 10/09/17 06:39 [From Solu-Medrol] n Neomycin AdvReac See Verified 10/09/17 06:39 Comments NSAIDS (Non-Steroidal AdvReac See Verified 10/09/17 06:39 Anti-Inflamma Comments prednisone AdvReac Hypertensio Verified 10/09/17 06:39 n Sulfa (Sulfonamide AdvReac See Verified 10/09/17 06:39 Antibiotics) Comments terfenadine AdvReac See Verified 10/09/17 06:39 Comments tramadol AdvReac See Verified 10/09/17 06:39 Comments All Systems PM: A 10-system review of systems was performed and is negative for pertinent findings except as documented above in the HPI. - Constitutional Constitutional: as per HPI, no chills, no fever(s), no night sweats - EENT Nose, mouth and throat: as per HPI, no dysphagia, no nasal discharge, no neck pain, no sore throat - Cardiovascular Cardiovascular ROS IM: as per HPI, no chest pain, no diaphoresis, no dyspnea, no dyspnea on exertion, no lightheadedness, no palpitations, no syncope - Respiratory Respiratory: as per HPI, no cough, no dyspnea, no wheezing, no excessive phlegm production - Gastrointestinal Gastrointestinal: as per HPI, abdominal pain, no diarrhea, no hematemesis, no hematochezia, no melena, no nausea, no vomiting Additional comments: localized pain near LLQ abdominal wound - Genitourinary Genitourinary: as per HPI, no change in urinary stream, no dysuria, no flank pain, no hematuria - Musculoskeletal Musculoskeletal ROS IM: as per HPI, no numbness, no tingling - Integumentary Integumentary IM: as per HPI, non-healing lesions, skin ulcer, no rash, no unus ual bruising - Neurological Neurological ROS: as per HPI, no confusion, no convulsions, no focal weakness, no numbness, no tingling, no tremor(s) - Hematologic/Lymphatic Hematologic/Lymphatic: no easy bruising - Constitutional Vitals: Temp Pulse Resp BP Pulse Ox 97.8 F 87 16 169/111 98 12/26/17 17:38 12/26/17 19:09 12/26/17 19:09 12/26/17 19:09 12/26/17 19:09 Exam: General: A&O X3, conversant, no acute distress, obese Head: atraumatic, normocephalic Eye: PERRL, EOMI, conjuntiva pink, sclera anicteric Neck: Supple, trachea midline; No lymphadenopathy Respiratory: Prolonged expiratory phase Cardiovascular: RRR, +S1, +S2; no murmurs, rubs, gallops Abdomen: Woud present on LLQ; currently dressed; tenderness in the area Extremities: warm, radial pulses palpable and symmetrical Neurological: CN II-XII intact Psychiatric: Normal affect, normal mood Skin: Wound present LLQ abdomen Internal Med - H&P Results - Labs CBC & Chem 7: 12/26/17 18:04 12/26/17 18:04 Labs: Short CBC 12/26/17 Range/Units 18:04 WBC 6.1 (4.3-11.1) K/mcL Hgb 11.1 L (11.5-15.4) g/dL Hct 37.3 (35.3-44.9) % Plt Count 238 (140-400) K/mcL Neutrophils # 4.1 (1.6-8.9) K/mcL [facility] 12/26/17 18:04 Sodium 135 L Potassium 4.6 Chloride 101 Carbon Dioxide 19 L BUN 54 H Creatinine 3.58 H Glucose 156 H Calcium 9.3 - Assessment and plan (1) Wound, open, abdominal wall, anterior Current Visit: Yes Status: Acute Assessment and plan: - Patient presented with nonhealing wound on abdomen; possibly secondary to diabetes mellitus - Reports history of nonhealing diabetic wound on her right lower extremity: Reports similar appearance - Wound is proximal 5 x 3 cm; no purulent drainage; 1 cm deep - Patient is afebrile; no elevated white count - Denies fevers, chills, nausea, vomiting, or pain in the area - Received vancomycin, Levaquin, and Flagyl in the ED Plan: - IV vancomycin, levaquin 750 IV q48 (renally adjusted; patient's weight adjusted CrCl is 25), flagyl 500 IV q8 - Wound culture obtained; adjust antibiotic therapy accordingly - Surgery consulted; awaiting recommendations - Blood CX ordered Qualifiers: Qualified Code(s): S31.109A - Unspecified open wound of abdominal wall, unspecified quadrant without penetration into peritoneal cavity, initial encounter (2) Diabetes mellitus Current Visit: Yes Status: Acute Assessment and plan: - Patient has known history of diabetes mellitus Plan: - Sliding scale insulin, Accu-Cheks Qualifiers: Qualified Code(s): E11.9 - Type 2 diabetes mellitus without complications (3) COPD (chronic obstructive pulmonary disease) Current Visit: No Status: Chronic Assessment and plan: - Patient has a known history of COPD; non-O2 dependent - Resume home medications - Duo nebs when necessary Qualifiers: Qualified Code(s): J44.9 - Chronic obstructive pulmonary disease, unspecified (4) Atrial fibrillation Current Visit: Yes Status: Acute Assessment and plan: - Patient has a known history of atrial fibrillation - Currently rate controlled - Takes Coumadin for anticoagulation - Will resume home medications Qualifiers: Qualified Code(s): I48.91 - Unspecified atrial fibrillation (5) Hypertension Current Visit: No Status: Chronic Assessment and plan: - Patient has a known history of hypertension - Resume home medications Qualifiers: Hypertension type: essential hypertension Qualified Code(s): I10 - Essential (primary) hypertension (6) ESRD (end stage renal disease) on dialysis Current Visit: No Status: Acute - Time Spent With Patient Total time spent is greater than 50% in coordination of care (as documented) at patient's floor/unit and/or counseling patient: 25 - 35 minutes <Vicente Rachel - Last Filed: 12/27/17 01:28> Date of Encounter: 12/27/17 Time of Encounter: 00:20 - Constitutional Constitutional: fever(s) (subjecttive) - EENT Nose, mouth and throat: no sore throat - Cardiovascular Cardiovascular ROS IM: no chest pain, no dyspnea - Respiratory Respiratory: no cough - Gastrointestinal Gastrointestinal: abdominal pain (at wound site), no diarrhea, no hematemesis, no hematochezia, no melena, no nausea, no vomiting - Integumentary Integumentary IM: non-healing lesions, skin ulcer - Neurological Neurological ROS: no dizziness, no focal weakness, no frequent falls, no headache(s) - Psychiatric Psychiatric: no anxiety, no depression - Hematologic/Lymphatic Hematologic/Lymphatic: no easy bruising - Constitutional Vitals: Temp Pulse Resp BP Pulse Ox 97.7 F 92 15 128/72 97 12/27/17 00:00 12/27/17 00:00 12/27/17 00:00 12/27/17 00:00 12/26/17 23:46 General appearance: Present: cooperative, A&O X 3, pleasant, no acute distress - Head Head exam: Present: normal inspection - Eye Eye exam: Present: PERRL. Absent: scleral icterus - ENT ENT exam: Present: mucous membranes dry, normal exam, normal oropharynx - Neck Neck exam general surgery: Present: supple - Respiratory Respiratory exam: Present: CTAB. Absent: rales, rhonchi, wheezes - Cardiovascular Cardiovascular exam: Present: RRR, +S1, +S2 - GI/Abdominal GI/Abdominal exam: Present: normal bowel sounds, soft, tenderness (LLQ wound and surrounding soft tissue with redness; no appreciable fluctuance; + foul smell), no peritoneal signs - Back Exam Back exam: Absent: CVA tenderness (L), CVA tenderness (R) - Neurological Exam Neurological exam: Present: alert, oriented X3, no focal deficits Internal Med - H&P Results - Labs CBC & Chem 7: 12/26/17 18:04 12/26/17 18:04 Labs: Short CBC 12/26/17 Range/Units 18:04 WBC 6.1 (4.3-11.1) K/mcL Hgb 11.1 L (11.5-15.4) g/dL Hct 37.3 (35.3-44.9) % Plt Count 238 (140-400) K/mcL Neutrophils # 4.1 (1.6-8.9) K/mcL BMP 12/26/17 18:04 Sodium 135 L Potassium 4.6 Chloride 101 Carbon Dioxide 19 L BUN 54 H Creatinine 3.58 H Glucose 156 H Calcium 9.3 - Time Spent With Patient Total time spent is greater than 50% in coordination of care (as documented) at patient's floor/unit and/or counseling patient: - Attending Attestation I discussed the patient EKLUTNA, past medical history, review of systems, lab data, and exam findings with Dr. Johnson. I then saw and examined patient independently. Her wound/ulcer appears to be in the soft tissue and localized to her left lower quadrant area. It is quite foul-smelling, slightly indurated, and tender to touch. I do not appreciate any fluctuance. Patient is unable to lie flat for a CT scan of abdomen because of her sleep apnea. She refuses to wear BiPAP. We will cancel the CAT scan and proceed with an ultrasound. Depending on ultrasound findings of her wound, she may need surgical debridement and/or I&D. However, at this time, I do not appreciate any fluctuance to suggest an abscess. We will continue with antibiotics as ordered and ask nephrology to see her for her dialysis needs. Other than my comments above and noted exam findings, I agree with Dr. Johnson's assessment and plan.
[2017-12-26] MEDS ORDERED: Naloxone 0.4 MG/ML INJ IVP PRN (20:48)
[2017-12-26] MEDS ORDERED: Nitroglycerin 0.4 MG TAB.SUBL SL PRN (20:49)
[2017-12-26] MEDS: Gabapentin 100 MG CAPSULE PO SCH (22:08)
[2017-12-26] MEDS: clonazePAM 1 MG TABLET PO SCH (22:08)
[2017-12-26] MEDS: hydrOXYzine pamoate 25 MG CAPSULE PO SCH (22:09)
[2017-12-26] MEDS: Nystatin POWDER 30 GM BOTTLE TP SCH (22:10)
[2017-12-26] MEDS: Acetaminophen 325 MG TABLET PO PRN (22:17)
[2017-12-26] MEDS: Albuterol Neb 1.25 MG/3 ML VIAL IH SCH (23:46)
[2017-12-26] MEDS ORDERED: D5% in Water 1,000 ML IVC PRN (23:47)
[2017-12-26] MEDS ORDERED: Dextrose Gel 15 GM/37.5 ML TUBE PO PRN ×2 (23:47)
[2017-12-26] MEDS ORDERED: *HR* Dextrose 50 % in Water (Syg) 50 ML SYRINGE IVP PRN (23:47)
[2017-12-27] MEDS: MetroNIDAZOLE 500 MG/100 ML 500 MG/100 ML BAG IVPB SCH ×3 (02:04→17:47)
[2017-12-27] MEDS: Albuterol Neb 1.25 MG/3 ML VIAL IH SCH ×4 (04:33→22:07)
[2017-12-27 07:09] LABS: Basophils % 0.4 %; Eosinophils # 0.2 K/mcL (0.0-0.6); Eosinophils % 4.1 %; Hematocrit 30.9 % (35.3-44.9); Immature Granulocytes % 0.2 % (0-4); Lymphocytes % 19.5 %; Mean Corpuscular HGB Conc 30.4 g/dL (31.6-35.5); Mean Corpuscular Hemoglobin 28.5 pg (28.0-33.3); Mean Corpuscular Volume 93.6 fL (83.0-100.0); Mean Platelet Volume 9.4 fL (9.4-12.4); Monocytes # 0.5 K/mcL (0.0-1.3); Monocytes % 9.8 %; Neutrophils # 3.4 K/mcL (1.6-8.9); Platelet Count 192 K/mcL (140-400); Red Cell Distribution Width 18.1 % (11.5-14.5)
[2017-12-27 07:16] LABS: INR 1.4; Prothrombin Time 16.3 Seconds (9.4-12.1)
[2017-12-27 07:31] LABS: Calcium 8.7 mg/dL (8.6-10.3); Potassium 4.5 mEq/L (3.5-5.1)
[2017-12-27 07:54] LABS: Hemoglobin 9.4 g/dL (11.5-15.4)
[2017-12-27] MEDS: hydrOXYzine pamoate 25 MG CAPSULE PO SCH ×3 (10:00→22:21)
[2017-12-27] MEDS: Isosorbide MONOnitrate (24 HR) 30 MG TAB.ER.24H PO SCH (10:00)
[2017-12-27] MEDS: Gabapentin 100 MG CAPSULE PO SCH ×3 (10:00→22:21)
[2017-12-27] MEDS: Furosemide 20 MG TABLET PO SCH ×2 (10:00→13:58)
[2017-12-27] MEDS: Calcium Acetate 667 MG CAPSULE PO SCH ×3 (10:01→17:47)
[2017-12-27] MEDS: Insulin DETEMIR 100 UNIT/ML X5UNITS SQ SCH ×2 (10:08→22:30)
[2017-12-27] MEDS ORDERED: 0.9 % Sodium Chloride 250 ML IVC PRN (10:41)
--- NOTE | 2017-12-27 10:41 | Nephrology Consult Note ---
Date of Encounter: 12/27/17 Time of Encounter: 10:40 Assessment and Plan (1) ESRD (end stage renal disease) on dialysis Current Visit: No Status: Acute ESRD on HD TTS at [facility] in [place], [place]. I'm her primary Production Assembly Supervisor. I was just made aware of this consult by the floor RN. Will add her on for HD today. I've ordered for HD today for clearance and volume mgt. I will be available tomorrow (Friday) if needed. Next HD tentatively planned for Friday. Please feel free to call or page me if any questions. Thank you. History of Present Illness - Reason for Consult Consult date: 12/27/17 end stage renal disease Requesting physician: Maria Guadalupe Martin - Chief Complaint ESRD - History of Present Illness Jenny Mars is a pleasant 62 y/o morbidly obese WF with a pmh of ESRD on HD TTS. She presented with a wound. She reported that she has missed several appt's to see a Vascular surgeon, which is why she still does not have an AVF in place at this point. She reported going to her last dialysis on . She dialyzes at [facility] in [place], [place]. I am her primary Production Assembly Supervisor. She did not affirm N/V/D or CP or F/C and affirm having chronic ankle/leg swelling. Past Med Surg Social Fam HX - Past Medical History Medical history: arthritis, CHF, COPD, DVT, diabetes, dialysis, GERD, hyperlipidemia, hypertension, migraine, osteoporosis, renal disease, thyroid disease Additional medical history: sleep apnea Psychiatric history: anxiety, depression - Past Surgical History Surgical History: appendectomy, hysterectomy, orthopedic, other, IVC filter Additional surgical history: carpal tunnel surgery left hand. perma cath change 2 to 3 weeks ago - Social History Smoking Status: Former smoker Smokeless Tobacco Status: No Alcohol use: none Drug use: none - Family History Father Family Member Ethnicity: Non- Living Status: Hx Family Cardiac Disorders: Yes (CHF, HTN) Hx Family GI Disorders: No Hx Family Endocrine Disorder: Yes (DM) Hx Family Neurologic Disorders: Yes Brother Family Member Ethnicity: Non- Living Status: Hx Family Cardiac Disorders: Yes (CHF, [place]) Sister Family Member Ethnicity: Non- Living Status: Hx Family Cardiac Disorders: Yes (CHF) Mother Family Member Ethnicity: Non- Living Status: Hx Family Cardiac Disorders: Yes (DVTs) Hx Family Cancer: Yes (Metastatic) Hx Family GI Disorders: No Hx Family Endocrine Disorder: Yes (DM) Medications and Allergies Meclizine [Antivert] 25 mg PO TID 09/12/14 [History] DiphenhydraMINE [Benadryl] 25 mg PO TID 03/22/15 [History] Exenatide Microspheres [Bydureon Pen] 2 mg SQ WE 03/22/15 [History] Lidocaine Patch [Lidoderm 5% patch] 1 patch TP DAILY 03/22/15 [History] Nitroglycerin [Nitrostat] 0.4 mg SL Q5M PRN 03/22/15 [History] Promethazine [Phenergan] 25 mg PO TID 03/22/15 [History] clonazePAM [Klonopin] 1 mg PO HS 03/22/15 [History] Albuterol Neb [AccuNeb] 1.25 mg IH QID 05/06/16 [History] Nystatin POWDER [Nystop] 1 appl TP BID 05/06/16 [History] Acetaminophen [Tylenol] 650 mg PO Q4-6H PRN 11/10/16 [History] Omeprazole [PriLOSEC] 40 mg PO DAILY 11/10/16 [History] Gabapentin [Neurontin] 100 mg PO TID #90 capsule 11/27/16 [Rx] Albuterol Sulfate [Ventolin Hfa] 2 puff IH Q4H PRN 08/12/17 [History] Calcium Acetate [Phos-LO] 1,334 mg PO TID 08/12/17 [History] Cyclobenzaprine [Flexeril] 10 mg PO TID 08/12/17 [History] Docusate [Colace] 100 mg PO TID 08/12/17 [History] Doxepin HCl 50 mg PO HS 08/12/17 [History] Furosemide [Lasix] 40 mg PO QAM 08/12/17 [History] Insulin ASPART [Novolog Flexpen] 32 unit SQ TIDAC 08/12/17 [History] Levothyroxine Sodium [Levoxyl] 250 mcg PO QAM 08/12/17 [History] Metoprolol XL (24 HR) Succ [Toprol Xl] 25 mg PO DAILY 08/12/17 [History] Warfarin [Coumadin] 5 mg PO DAILY 08/12/17 [History] hydrOXYzine HCl [Hydroxyzine HCl] 25 mg PO TID 08/12/17 [History] Ergocalciferol (VITAMIN D2) [Vitamin D2] 50,000 unit PO QWEEK 09/23/17 [History] Furosemide [Lasix] 20 mg PO 1300 09/23/17 [History] Furosemide [Lasix] 40 mg PO QPM 09/23/17 [History] Insulin Glargine,Hum.rec.anlog [Lantus Solostar] 75 unit SQ BID 09/23/17 [History] Amlodipine Besylate 10 mg PO DAILY 12/26/17 [History] Isosorbide MONOnitrate [Isosorbide Mononitrate ER] 30 mg PO DAILY 12/26/17 [History] Rosuvastatin Calcium [Crestor] 10 mg PO QPM 12/26/17 [History] Allergy/AdvReac Type Severity Reaction Status Date / Time aspirin Allergy Hives Verified 10/09/17 06:39 cephalexin [From Keflex] Allergy Difficulty Verified 10/09/17 06:39 Breathing Cortisone Allergy See Verified 10/09/17 06:39 Comments ibuprofen Allergy Hives Verified 10/09/17 06:39 Iodinated Contrast- Oral and Allergy See Verified 10/09/17 06:39 IV Dye Comments [Iodinated Contrast Media - IV Dye] lidocaine [From Xylocaine] Allergy See Verified 10/09/17 06:39 Comments loratadine [From Claritin] Allergy Hives Verified 10/09/17 06:39 Penicillins Allergy See Verified 10/09/17 06:39 Comments Procaine [From Novocain] Allergy See Verified 10/09/17 06:39 Comments propoxyphene [From Darvon] Allergy See Verified 10/09/17 06:39 Comments pseudoephedrine Allergy Hives Verified 10/09/17 06:39 [From Sudafed] ropinirole [From Requip] Allergy See Verified 10/09/17 06:39 Comments acetaminophen AdvReac See Verified 10/09/17 06:39 Comments albuterol AdvReac Shakiness Verified 10/09/17 06:39 calcium AdvReac See Verified 10/09/17 06:39 Comments ceftriaxone [From Rocephin] AdvReac See Verified 10/09/17 06:39 Comments clindamycin AdvReac Hypotension Verified 10/09/17 06:39 codeine AdvReac Hypertensio Verified 10/09/17 06:39 n doxycycline AdvReac See Verified 10/09/17 06:39 Comments famotidine AdvReac See Verified 10/09/17 06:39 Comments hydrocodone AdvReac See Verified 10/09/17 06:39 Comments hydrocortisone AdvReac Hypertensio Verified 10/09/17 06:39 n ipratropium AdvReac See Verified 10/09/17 06:39 Comments methylprednisolone AdvReac Hypertensio Verified 10/09/17 06:39 [From Solu-Medrol] n Neomycin AdvReac See Verified 10/09/17 06:39 Comments NSAIDS (Non-Steroidal AdvReac See Verified 10/09/17 06:39 Anti-Inflamma Comments prednisone AdvReac Hypertensio Verified 10/09/17 06:39 n Sulfa (Sulfonamide AdvReac See Verified 10/09/17 06:39 Antibiotics) Comments terfenadine AdvReac See Verified 10/09/17 06:39 Comments tramadol AdvReac See Verified 10/09/17 06:39 Comments Review of Systems All Systems: reviewed and no additional remarkable complaints except as stated Exam - Vital Signs Vital signs: Initial Vital Signs Temp Pulse Resp BP Pulse Ox 97.8 F 100 18 180/94 99 12/26/17 17:28 12/26/17 17:28 12/26/17 17:28 12/26/17 17:28 12/26/17 17:28 Vital Signs - Last 8 Hours Temp Pulse Resp BP Pulse Ox 12/27/17 06:32 97.9 F 91 17 159/69 98 12/27/17 04:33 19 98 12/27/17 04:05 97.4 F L 88 16 134/67 97 Intake and Output 12/26/17 12/27/17 12/27/17 23:59 07:59 15:59 Intake Total 250 / 250 100 / 100 Balance 250 / 250 100 / 100 Intake: IV Fluids 250 / 250 100 / 100 Levaquin Premix 750mg/150 mL 150 / 150 750 mg In 150 ml @ 100 mls/hr IVPB ONCE ONE Rx#:[id number] Flagyl Premix 500 MG/100 ML 500 100 / 100 100 / 100 mg In 100 ml @ 100 mls/hr IVPB Q8HR [facility] Rx#:[id number] Other: Weight 156.489 kg 160.1 kg Blood Glucose* 111 Patient Weight 12/27/17 23:59 Weight 160.1 kg - General Appearance General appearance: well-developed, well-nourished, appears started age, obese EENT: ATNC, PERRL, mucous membranes moist Neck: supple Respiratory: clear (but diminished breath sounds in the bases due to her obese body habitus. ) Cardiology: edema (trace to 1+ ankle edema b/l, but mostly adiposity), normal S1, normal S2 - Dialysis Access Dialysis Vascular Access: Venous Catheter (Right sided Permacath in place without exitsite erythema. Cuff not exposed.) Gastrointestinal: normoactive bowel sounds, no tenderness, no guarding Integumentary: warm and dry, chronic venous stasis Neurologic: no focal deficit, no asterixis, alert and oriented x3 Musculoskeletal: no deformities, no erythema Psychiatric: mood/affect appropriate (pressured speach) Results - Lab Results 12/27/17 06:44 12/27/17 06:44 Most recent lab results Calcium 8.7 mg/dL (8.6-10.3) 12/27/17 06:44 I reviewed the labs, vitals, med list and progress notes and imaging. Consult Discharge Plan - Plan Referrals: Mauro Dockery MD [Primary Care Provider] -
[2017-12-27] MEDS ORDERED: 0.9 % Sodium Chloride 1,000 ML PRIME SCH (10:45)
[2017-12-27] MEDS: Insulin LISPRO 300 UNITS/3 ML VIAL SQ SCH ×3 (13:41→17:59)
[2017-12-27] MEDS: Nystatin POWDER 30 GM BOTTLE TP SCH ×2 (13:42→22:22)
[2017-12-27] MEDS: amLODIPine 5 MG TABLET PO SCH (13:42)
[2017-12-27] MEDS: Metoprolol XL (24 HR) Succ 25 MG TAB.ER.24H PO SCH (13:45)
[2017-12-27 14:17] LABS: Hepatitis B Surface Antibody 0.13 mIU/mL; Hepatitis B Surface Antigen Nonreactive (Nonreactive)
--- NOTE | 2017-12-27 15:09 | Internal Med Progress Note ---
Hospitalist Progress Note - Encounter Date of Encounter: 12/27/17 Time of Encounter: 15:07 - Subjective Interval History: Seen and examined at bedside. Patient is new to me, information obtained from chart review and patient report. Sitting up on edge of bed eating lunch. Says she feels about the same which she came in. She refused to let me assess wound, stated dressing was recently changed and she did not want to take it down. Says wound has been present for at least 3 weeks and had a foul drainage. She was trying to manage at home but thought it was getting worse as she came to the ER. No recent ATB use. - Exam Vitals: Temp Pulse Resp BP Pulse Ox 97.9 F 91 17 159/69 98 12/27/17 06:32 12/27/17 06:32 12/27/17 06:32 12/27/17 06:32 12/27/17 06:32 Exam: General appearance: Present: A&O X 3, pleasant, no acute distress - Head Head exam: Present: atraumatic, normocephalic - Eye Eye exam: Present: PERRL, conjuntiva pink, sclera anicteric Pupils: Present: PERRL - Neck Neck exam general surgery: Present: supple, trachea midline. Absent: lymph adenopathy - Respiratory Respiratory exam: Present: chest wall tenderness, CTAB. Absent: accessory muscle use, rales, rhonchi, wheezes - Cardiovascular Cardiovascular exam: Present: RRR, +S1, +S2. Absent: diastolic murmur, gallop, rubs, systolic murmur - GI/Abdominal GI/Abdominal exam: Present: Morbidly obese, normal bowel sounds, soft, no peritoneal signs. Absent: distended, tenderness - Extremities Exam Extremities exam: Present: warm, radial pulses palpable and symmetrical, bilateral lower extremity edema Absent: calf tenderness, cyanotic - Neurological Exam Neurological exam: Present: CN II-XII intact, oriented X3, no focal deficits. Absent: pronater drift, facial droop, speech deficit - Skin Skin exam: Wound to pannus not assessed; patient refused. Stated dressing was recently changed and she did not want to take it down. - Assessment and Plan (1) Wound, open, abdominal wall, anterior Current Visit: Yes Status: Acute Assessment and Plan: Presented with nonhealing wound on abdomen for at least 3 weeks prior to arrival. Patient reported foul drainage, was trying to manage resting changes at home but felt wound was getting worse and she came to the ER. No recent ATB use. Cont vancomycin, Levaquin and Flagyl in ED. Wound and blood cultures pending. Surgery consult (2) Atrial fibrillation Current Visit: Yes Status: Acute Assessment and Plan: per hx. rate controlled. Continue home Coumadin, BB (3) COPD (chronic obstructive pulmonary disease) Current Visit: No Status: Chronic Assessment and Plan: per hx. no evidence of exacerbation. Continue home inhalers (4) Diabetes Current Visit: No Status: Chronic Assessment and Plan: per hx. blood sugars variable. Holding home prandial insulin as it is a large dose and diet is likely more restricted while inpatient. Continue home long- acting. SSI. Monitor blood sugar and titrate PRN. Hgb A1c pending (5) ESRD (end stage renal disease) on dialysis Current Visit: No Status: Acute Assessment and Plan: per hx. On HD TTS. Nephrology managing dialysis (6) Essential hypertension Current Visit: No Status: Acute Assessment and Plan: per hx. BP controlled. Continue home BP medication. Monitor BP and titrate PRN DVT Prophylaxis: Coumadin - Time Spent with Patient Total time spent is greater than 50% in coordination of care (as documented) at patient's floor/unit and/or counseling patient: Internal Medicine: Result - Labs CBC & Chem 7: 12/27/17 06:44 12/27/17 06:44 Labs: Short CBC 12/26/17 12/27/17 Range/Units 18:04 06:44 WBC 6.1 5.1 (4.3-11.1) K/mcL Hgb 11.1 L 9.4 L D (11.5-15.4) g/dL Hct 37.3 30.9 L (35.3-44.9) % Plt Count 238 192 (140-400) K/mcL Neutrophils # 4.1 3.4 (1.6-8.9) K/mcL BMP 12/26/17 12/27/17 18:04 06:44 Sodium 135 L 137 Potassium 4.6 4.5 Chloride 101 104 Carbon Dioxide 19 L 21 L BUN 54 H 56 H Creatinine 3.58 H 3.52 H Glucose 156 H 114 H Calcium 9.3 8.7 - ABG Interpretation ABG results: PT/INR, D-dimer PT 16.3 Seconds (9.4-12.1) H 12/27/17 06:44 - Impressions Impressions Abdomen Ultrasound 12/27/17 11:04 IMPRESSION: Nonspecific changes in the subcutaneous tissues area of concern left lateral abdominal wall. CT imaging would prove helpful for further assessment. No discrete fluid collection/abscess is seen on ultrasound. D/ / 12/27/2017 12:35:19 Jong Herman MD / [email or web address] Interpreting Provider: Jong Herman MD Consult Discharge Plan - Plan Referrals: Mauro Dockery MD [Primary Care Provider] - (1) Wound, open, abdominal wall, anterior Qualifiers: Qualified Code(s): S31.109A - Unspecified open wound of abdominal wall, unspecified quadrant without penetration into peritoneal cavity, initial encounter (2) Atrial fibrillation Qualifiers: Qualified Code(s): I48.91 - Unspecified atrial fibrillation (3) COPD (chronic obstructive pulmonary disease) Qualifiers: Qualified Code(s): J44.9 - Chronic obstructive pulmonary disease, unspecified (4) Diabetes Qualifiers: Diabetes mellitus type: type 2 Diabetes mellitus longterm insulin use: with termite helper use Diabetes mellitus complication status: with circulatory complication Diabetes mellitus complication detail: with other circulatory complications Qualified Code(s): E11.59 - Type 2 diabetes mellitus with other circulatory complications; Z79.4 - termite helper (current) use of insulin; Z79.4 - [facility] (current) use of insulin; Z79.4 - termite helper (current) use of insulin; Z79.4 - termite helper (current) use of insulin
[2017-12-27] MEDS: Furosemide 40 MG TABLET PO SCH (17:47)
[2017-12-27] MEDS: Acetaminophen 325 MG TABLET PO PRN ×2 (17:57→22:22)
[2017-12-27] MEDS ORDERED: *HR* Warfarin 5 MG TABLET PO SCH (18:00)
[2017-12-27] MEDS ORDERED: *HR* Warfarin 5 MG TABLET PO ONE (18:00)
[2017-12-27] MEDS ORDERED: Warfarin perPT PO PRN (18:00)
[2017-12-27] MEDS ORDERED: Vancomycin 500 MG in 0.9 % Sodium Chloride Mini Bag 100 ML IVPB ONE (20:24)
[2017-12-27] MEDS: clonazePAM 1 MG TABLET PO SCH (22:20)
[2017-12-28] MEDS: MetroNIDAZOLE 500 MG/100 ML 500 MG/100 ML BAG IVPB SCH ×3 (00:20→17:21)
[2017-12-28] MEDS: Albuterol Neb 1.25 MG/3 ML VIAL IH SCH ×4 (04:20→22:46)
[2017-12-28 05:15] LABS: Hematocrit 30.9 % (35.3-44.9); Hemoglobin 9.4 g/dL (11.5-15.4); Mean Corpuscular HGB Conc 30.4 g/dL (31.6-35.5); Mean Corpuscular Hemoglobin 28.7 pg (28.0-33.3); Mean Corpuscular Volume 94.2 fL (83.0-100.0); Mean Platelet Volume 9.2 fL (9.4-12.4); Platelet Count 170 K/mcL (140-400); Red Blood Count 3.28 M/mcL (3.82-4.97)
[2017-12-28 05:22] LABS: INR 1.6
[2017-12-28 05:35] LABS: Calcium 8.5 mg/dL (8.6-10.3); Potassium 4.4 mEq/L (3.5-5.1)
[2017-12-28 06:34] LABS: Estimated Average Glucose 183 mg/dl
[2017-12-28] MEDS: Insulin DETEMIR 100 UNIT/ML X5UNITS SQ SCH ×2 (08:19→23:17)
[2017-12-28] MEDS: Metoprolol XL (24 HR) Succ 25 MG TAB.ER.24H PO SCH (08:20)
[2017-12-28] MEDS: Isosorbide MONOnitrate (24 HR) 30 MG TAB.ER.24H PO SCH (08:20)
[2017-12-28] MEDS: hydrOXYzine pamoate 25 MG CAPSULE PO SCH ×3 (08:20→21:49)
[2017-12-28] MEDS: amLODIPine 5 MG TABLET PO SCH (08:21)
[2017-12-28] MEDS: Gabapentin 100 MG CAPSULE PO SCH ×3 (08:21→21:50)
[2017-12-28] MEDS: Furosemide 20 MG TABLET PO SCH ×2 (08:21→12:37)
[2017-12-28] MEDS: Calcium Acetate 667 MG CAPSULE PO SCH ×3 (08:21→17:20)
[2017-12-28] MEDS: Insulin LISPRO 300 UNITS/3 ML VIAL SQ SCH ×3 (08:30→17:29)
[2017-12-28] MEDS ORDERED: Menthol 9.1 MG LOZENGE PO PRN (11:43)
--- NOTE | 2017-12-28 11:48 | General Surgery Consult Note ---
Date of Encounter: 12/28/17 Time of Encounter: 11:46 Assessment and Plan (1) Abdominal wall abscess Current Visit: Yes Status: Acute wash area with soap and water daily, apply santyl nickel thick to wound, cover with folded saline moistened 4x4 gauze, cover with dry 4x4 gauze and secure with medipore tape, change daily (2) Obesity Current Visit: No Status: Chronic Qualifiers: Obesity type: unspecified obesity type Obesity classification: unspecified obesity classification Serious obesity comorbidity presence: with serious comorbidity Qualified Code(s): E66.9 - Obesity, unspecified (3) Non compliance with medical treatment Current Visit: No Status: Chronic History of Present Illness Consult date: 12/28/17 Reason for consult: wound care Requesting physician: Poonam Keith History of present illness: Patient is a 62 yo obese, diabetic noncompliant patient known to me. She developed a RLQ abdominal wound three weeks ago. Her states it started out as a small sore but progressively got larger and firmer with time. She complains of pain at the site. She has been puting dry dressings over the area and changing daily. There is yellow foul smelling drainage to the site. Past Med Surg Social Fam HX - Past Medical History Source: patient Medical history: arthritis, CHF, COPD, DVT, diabetes, dialysis, GERD, hyperlipidemia, hypertension, migraine, osteoporosis, renal disease, thyroid disease Additional medical history: sleep apnea Psychiatric history: anxiety, depression - Past Surgical History Surgical History: appendectomy, hysterectomy, orthopedic, other, IVC filter Additional surgical history: carpal tunnel surgery left hand. perma cath change 2 to 3 weeks ago - Social History Smoking Status: Former smoker Smokeless Tobacco Status: No Alcohol use: none Drug use: none Occupational status: disabled Current living situation: Home - Independent, With Family - Family History Father Family Member Ethnicity: Non- Living Status: Hx Family Cardiac Disorders: Yes (CHF, HTN) Hx Family GI Disorders: No Hx Family Endocrine Disorder: Yes (DM) Hx Family Neurologic Disorders: Yes Brother Family Member Ethnicity: Non- Living Status: Hx Family Cardiac Disorders: Yes (CHF, NV) Sister Family Member Ethnicity: Non- Living Status: Hx Family Cardiac Disorders: Yes (CHF) Mother Family Member Ethnicity: Non- Living Status: Hx Family Cardiac Disorders: Yes (DVTs) Hx Family Cancer: Yes (Metastatic) Hx Family GI Disorders: No Hx Family Endocrine Disorder: Yes (DM) Medications and Allergies Meclizine [Antivert] 25 mg PO TID 09/12/14 [History] DiphenhydraMINE [Benadryl] 25 mg PO TID 03/22/15 [History] Exenatide Microspheres [Bydureon Pen] 2 mg SQ WE 03/22/15 [History] Lidocaine Patch [Lidoderm 5% patch] 1 patch TP DAILY 03/22/15 [History] Nitroglycerin [Nitrostat] 0.4 mg SL Q5M PRN 03/22/15 [History] Promethazine [Phenergan] 25 mg PO TID 03/22/15 [History] clonazePAM [Klonopin] 1 mg PO HS 03/22/15 [History] Albuterol Neb [AccuNeb] 1.25 mg IH QID 05/06/16 [History] Nystatin POWDER [Nystop] 1 appl TP BID 05/06/16 [History] Acetaminophen [Tylenol] 650 mg PO Q4-6H PRN 11/10/16 [History] Omeprazole [PriLOSEC] 40 mg PO DAILY 11/10/16 [History] Gabapentin [Neurontin] 100 mg PO TID #90 capsule 11/27/16 [Rx] Albuterol Sulfate [Ventolin Hfa] 2 puff IH Q4H PRN 08/12/17 [History] Calcium Acetate [Phos-LO] 1,334 mg PO TID 08/12/17 [History] Cyclobenzaprine [Flexeril] 10 mg PO TID 08/12/17 [History] Docusate [Colace] 100 mg PO TID 08/12/17 [History] Doxepin HCl 50 mg PO HS 08/12/17 [History] Furosemide [Lasix] 40 mg PO QAM 08/12/17 [History] Insulin ASPART [Novolog Flexpen] 32 unit SQ TIDAC 08/12/17 [History] Levothyroxine Sodium [Levoxyl] 250 mcg PO QAM 08/12/17 [History] Metoprolol XL (24 HR) Succ [Toprol Xl] 25 mg PO DAILY 08/12/17 [History] Warfarin [Coumadin] 5 mg PO DAILY 08/12/17 [History] hydrOXYzine HCl [Hydroxyzine HCl] 25 mg PO TID 08/12/17 [History] Ergocalciferol (VITAMIN D2) [Vitamin D2] 50,000 unit PO QWEEK 09/23/17 [History] Furosemide [Lasix] 20 mg PO 1300 09/23/17 [History] Furosemide [Lasix] 40 mg PO QPM 09/23/17 [History] Insulin Glargine,Hum.rec.anlog [Lantus Solostar] 75 unit SQ BID 09/23/17 [History] Amlodipine Besylate 10 mg PO DAILY 12/26/17 [History] Isosorbide MONOnitrate [Isosorbide Mononitrate ER] 30 mg PO DAILY 12/26/17 [History] Rosuvastatin Calcium [Crestor] 10 mg PO QPM 12/26/17 [History] Collagenase Oint [Santyl] 90 gm TP DAILY #1 oint...g. 12/28/17 [Rx] Allergy/AdvReac Type Severity Reaction Status Date / Time aspirin Allergy Hives Verified 10/09/17 06:39 cephalexin [From Keflex] Allergy Difficulty Verified 10/09/17 06:39 Breathing Cortisone Allergy See Verified 10/09/17 06:39 Comments ibuprofen Allergy Hives Verified 10/09/17 06:39 Iodinated Contrast- Oral and Allergy See Verified 10/09/17 06:39 IV Dye Comments [Iodinated Contrast Media - IV Dye] lidocaine [From Xylocaine] Allergy See Verified 10/09/17 06:39 Comments loratadine [From Claritin] Allergy Hives Verified 10/09/17 06:39 Penicillins Allergy See Verified 10/09/17 06:39 Comments Procaine [From Novocain] Allergy See Verified 10/09/17 06:39 Comments propoxyphene [From Darvon] Allergy See Verified 10/09/17 06:39 Comments pseudoephedrine Allergy Hives Verified 10/09/17 06:39 [From Sudafed] ropinirole [From Requip] Allergy See Verified 10/09/17 06:39 Comments acetaminophen AdvReac See Verified 10/09/17 06:39 Comments albuterol AdvReac Shakiness Verified 10/09/17 06:39 calcium AdvReac See Verified 10/09/17 06:39 Comments ceftriaxone [From Rocephin] AdvReac See Verified 10/09/17 06:39 Comments clindamycin AdvReac Hypotension Verified 10/09/17 06:39 codeine AdvReac Hypertensio Verified 10/09/17 06:39 n doxycycline AdvReac See Verified 10/09/17 06:39 Comments famotidine AdvReac See Verified 10/09/17 06:39 Comments hydrocodone AdvReac See Verified 10/09/17 06:39 Comments hydrocortisone AdvReac Hypertensio Verified 10/09/17 06:39 n ipratropium AdvReac See Verified 10/09/17 06:39 Comments methylprednisolone AdvReac Hypertensio Verified 10/09/17 06:39 [From Solu-Medrol] n Neomycin AdvReac See Verified 10/09/17 06:39 Comments NSAIDS (Non-Steroidal AdvReac See Verified 10/09/17 06:39 Anti-Inflamma Comments prednisone AdvReac Hypertensio Verified 10/09/17 06:39 n Sulfa (Sulfonamide AdvReac See Verified 10/09/17 06:39 Antibiotics) Comments terfenadine AdvReac See Verified 10/09/17 06:39 Comments tramadol AdvReac See Verified 10/09/17 06:39 Comments Review of Systems All systems PM: reviewed and no additional remarkable complaints except as stated All systems PM: The remainder of the systems were reviewed and are negative General Surgery Exam Initial Vital Signs Temp Pulse Resp BP Pulse Ox 97.8 F 100 18 180/94 99 12/26/17 17:28 12/26/17 17:28 12/26/17 17:28 12/26/17 17:28 12/26/17 17:28 - General physical appearance well developed, well nourished, no distress, obese - Eyes PERRL, normal ocular movement - ENT normal mucosa, normocephalic - Neck trachea midline - Respiratory normal expansion, normal respiratory effort - Cardiovascular Cardiovascular exam: Present: RRR - Abdomen Abdomen general surgery: Present: bowel sounds present, soft, tender (LLQ at wound site, open area is 4.5 cm wide by 3.5 long by 0.4 cm deep, 90% slough, 10 % granulation, foul smell, periwound induration and erythema) - Integumentary Integumentary general surgery: Present: warm and dry - Neurologic Present: CN 2-12 grossly intact, normal coordination - Musculoskeletal Present: normal posture - Psychiatric Psychiatric general surgery: Present: A&Ox3, speech is normal Exam Initial Vital Signs Temp Pulse Resp BP Pulse Ox 97.8 F 100 18 180/94 99 12/26/17 17:28 18 17:28 12/26/17 17:28 12/26/17 17:28 12/26/17 17:28 Results - Labs 12/28/17 05:01 12/28/17 05:01 Abnormal lab results RBC 3.28 M/mcL (3.82-4.97) L 12/28/17 05:01 Hgb 9.4 g/dL (11.5-15.4) L 12/28/17 05:01 Hct 30.9 % (35.3-44.9) L 12/28/17 05:01 MCHC 30.4 g/dL (31.6-35.5) L 12/28/17 05:01 RDW 18.0 % (11.5-14.5) H 12/28/17 05:01 MPV 9.2 fL (9.4-12.4) L 12/28/17 05:01 PT 18.0 Seconds (9.4-12.1) H 12/28/17 05:01 BUN 33 mg/dL (8-23) H 12/28/17 05:01 Creatinine 3.04 mg/dL (0.60-1.20) H 12/28/17 05:01 Est GFR ( Amer) 19 (> 60) L 12/28/17 05:01 Est GFR (Non-Af Amer) 15 (> 60) L 12/28/17 05:01 POC Glucose 210 mg/dL (70-99) H 12/27/17 12:33 Hemoglobin A1c 8.0 % (-5.6) H 12/28/17 05:01 Calcium 8.5 mg/dL (8.6-10.3) L 12/28/17 05:01 B-Natriuretic Peptide 123 pg/mL (Less than 100) H 12/27/17 06:44 Diabetes panel 12/28/17 12/28/17 Range/Units 05:01 05:01 Sodium 137 (136-145) mEq/L Potassium 4.4 (3.5-5.1) mEq/L Chloride 102 (98-107) mEq/L Carbon Dioxide 25 (23-29) mEq/L BUN 33 H (8-23) mg/dL Creatinine 3.04 H (0.60-1.20) mg/dL Glucose 99 (70-105) mg/dL Hemoglobin A1c 8.0 H ( - 5.6) % Calcium 8.5 L (8.6-10.3) mg/dL Calcium panel 12/28/17 Range/Units 05:01 Calcium 8.5 L (8.6-10.3) mg/dL Pituitary panel 12/28/17 Range/Units 05:01 Sodium 137 (136-145) mEq/L Potassium 4.4 (3.5-5.1) mEq/L Chloride 102 (98-107) mEq/L Carbon Dioxide 25 (23-29) mEq/L BUN 33 H (8-23) mg/dL Creatinine 3.04 H (0.60-1.20) mg/dL Glucose 99 (70-105) mg/dL Calcium 8.5 L (8.6-10.3) mg/dL Adrenal panel 12/28/17 Range/Units 05:01 Sodium 137 (136-145) mEq/L Potassium 4.4 (3.5-5.1) mEq/L Chloride 102 (98-107) mEq/L Carbon Dioxide 25 (23-29) mEq/L BUN 33 H (8-23) mg/dL Creatinine 3.04 H (0.60-1.20) mg/dL Glucose 99 (70-105) mg/dL Calcium 8.5 L (8.6-10.3) mg/dL All other labs normal. - Imaging Additional studies: Abdomen Ultrasound 12/27/17 11:04 IMPRESSION: Nonspecific changes in the subcutaneous tissues area of concern left lateral abdominal wall. CT imaging would prove helpful for further assessment. No discrete fluid collection/abscess is seen on ultrasound. D/ / 12/27/2017 12:35:19 Jong Herman MD / [email or web address] Interpreting Provider: Jong Herman MD Consult Discharge Plan - Plan Additional Instructions: wash area with soap and water daily, apply santyl nickel thick to wound, cover with folded saline moistened 4x4 gauze, cover with dry 4x4 gauze and secure with medipore tape, change daily Referrals: Mauro Dockery MD [Primary Care Provider] - wound [Other] (Patient to follow up with Dr Myrick in wound care) Prescriptions: Collagenase Oint [Santyl] 90 gm TP DAILY #1 oint...g.
[2017-12-28] MEDS: Nystatin POWDER 30 GM BOTTLE TP SCH (12:41)
--- NOTE | 2017-12-28 13:05 | Internal Med Progress Note ---
Hospitalist Progress Note - Encounter Date of Encounter: 12/28/17 Time of Encounter: 13:06 - Subjective Interval History: Seen and examined at bedside. Laying in bed and appears comfortable. She is complaining of right lower extremity edema; says it is a little worse than normal. - Exam Vitals: Temp Pulse Resp BP Pulse Ox 98.0 F 88 18 133/67 96 12/28/17 12:19 12/28/17 12:19 12/28/17 12:19 12/28/17 12:19 12/28/17 12:19 Exam: General appearance: Present: A&O X 3, pleasant, no acute distress - Head Head exam: Present: atraumatic, normocephalic - Eye Eye exam: Present: PERRL, conjuntiva pink, sclera anicteric Pupils: Present: PERRL - Neck Neck exam general surgery: Present: supple, trachea midline. Absent: lymphadenopathy - Respiratory Respiratory exam: Present: chest wall tenderness, CTAB. Absent: accessory muscle use, rales, rhonchi, wheezes - Cardiovascular Cardiovascular exam: Present: RRR, +S1, +S2. Absent: diastolic murmur, gallop, rubs, systolic murmur - GI/Abdominal GI/Abdominal exam: Present: Morbidly obese, normal bowel sounds, soft, no peritoneal signs. Absent: distended, tenderness - Extremities Exam Extremities exam: Present: warm, radial pulses palpable and symmetrical, bilateral lower extremity edema Absent: calf tenderness, cyanotic - Neurological Exam Neurological exam: Present: CN II-XII intact, oriented X3, no focal deficits. Absent: pronater drift, facial droop, speech deficit - Skin Skin exam: LLQ ABD wound with yellow slough and area of necrotic tissue to wound bed; bowel odor noted. No drainage. - Assessment and Plan (1) Abdominal wall abscess Current Visit: Yes Status: Acute Assessment and Plan: presented with draining wound to LLQ. ABD ultrasound with nonspecific subcutaneous changes to left lateral abdominal wall. Evaluated by Gen. surgery who recommended local wound care. No obvious area of fluctuance or drainable abscess. Continue IV Vanco, Flagyl and Levaquin for now. ABD/pelvis CT pending. (2) ESRD (end stage renal disease) on dialysis Current Visit: No Status: Acute Assessment and Plan: per hx. On HD TTS. Nephrology managing dialysis (3) Lower extremity edema Current Visit: No Status: Chronic Assessment and Plan: Has chronic lower extremity edema however patient reports right lower leg is more swollen than baseline. Lower extremity venous Dopplers pending (4) Atrial fibrillation Current Visit: Yes Status: Acute Assessment and Plan: per hx. rate controlled. Continue home Coumadin, BB (5) COPD (chronic obstructive pulmonary disease) Current Visit: No Status: Chronic Assessment and Plan: per hx. no evidence of exacerbation. Continue home inhalers (6) Diabetes Current Visit: No Status: Chronic Assessment and Plan: per hx. Hgb A1c 8%; blood sugars variable. Holding home prandial insulin as it is a large dose and diet is likely more restricted while inpatient. Continue home long-acting. SSI. Monitor blood sugar and titrate PRN. (7) Essential hypertension Current Visit: No Status: Acute Assessment and Plan: per hx. BP controlled. Continue home BP medication. Monitor BP and titrate PRN DVT Prophylaxis: Coumadin - Time Spent with Patient Total time spent is greater than 50% in coordination of care (as documented) at patient's floor/unit and/or counseling patient: Internal Medicine: Result - Labs CBC & Chem 7: 12/28/17 05:01 12/28/17 05:01 Labs: Short CBC 12/28/17 Range/Units 05:01 WBC 5.1 (4.3-11.1) K/mcL Hgb 9.4 L (11.5-15.4) g/dL Hct 30.9 L (35.3-44.9) % Plt Count 170 (140-400) K/mcL BMP 12/28/17 05:01 Sodium 137 Potassium 4.4 Chloride 102 Carbon Dioxide 25 BUN 33 H Creatinine 3.04 H Glucose 99 Calcium 8.5 L - ABG Interpretation ABG results: PT/INR, D-dimer PT 18.0 Seconds (9.4-12.1) H 12/28/17 05:01 Consult Discharge Plan - Plan Additional Instructions: wash area with soap and water daily, apply santyl nickel thick to wound, cover with folded saline moistened 4x4 gauze, cover with dry 4x4 gauze and secure with medipore tape, change daily Referrals: wound [Other] (Patient to follow up with Dr Myrick in wound care) Mauro Dockery MD [Primary Care Provider] - Prescriptions: Collagenase Oint [Santyl] 90 gm TP DAILY #1 oint...g. (4) Atrial fibrillation Qualifiers: Qualified Code(s): I48.91 - Unspecified atrial fibrillation (5) COPD (chronic obstructive pulmonary disease) Qualifiers: Qualified Code(s): J44.9 - Chronic obstructive pulmonary disease, unspecified (6) Diabetes Qualifiers: Diabetes mellitus type: type 2 Diabetes mellitus penitentiary insulin use: with penitentiary use Diabetes mellitus complication status: with circulatory complication Diabetes mellitus complication detail: with other circulatory complications Qualified Code(s): E11.59 - Type 2 diabetes mellitus with other circulatory complications; Z79.4 - terminal operator (current) use of insulin; Z79.4 - terminal operator (current) use of insulin; Z79.4 - terminal operator (current) use of insulin; Z79.4 - nursing home (current) use of insulin
[2017-12-28] MEDS: Furosemide 40 MG TABLET PO SCH (17:20)
[2017-12-28] MEDS: Acetaminophen 325 MG TABLET PO PRN ×2 (17:28→21:52)
[2017-12-28] MEDS ORDERED: *HR* Warfarin 5 MG TABLET PO ONE (18:00)
[2017-12-28] MEDS ORDERED: Levofloxacin 750 MG/150 ML 750 MG/150 ML BAG IVPB SCH (18:00)
[2017-12-28] MEDS: clonazePAM 1 MG TABLET PO SCH (21:51)
[2017-12-29 03:35] LABS: Hematocrit 28.1 % (35.3-44.9); Hemoglobin 8.6 g/dL (11.5-15.4); Mean Corpuscular HGB Conc 30.6 g/dL (31.6-35.5); Mean Corpuscular Hemoglobin 28.7 pg (28.0-33.3); Mean Corpuscular Volume 93.7 fL (83.0-100.0); Mean Platelet Volume 9.7 fL (9.4-12.4); Platelet Count 178 K/mcL (140-400); Segmented Neutrophils % 67.1 %
[2017-12-29 03:36] LABS: Basophils % 0.4 %; Eosinophils # 0.2 K/mcL (0.0-0.6); Eosinophils % 4.6 %; Immature Granulocytes % 0.2 % (0-4); Lymphocytes # 0.9 K/mcL (0.6-4.6); Monocytes # 0.6 K/mcL (0.0-1.3); Monocytes % 10.7 %; Neutrophils # 3.5 K/mcL (1.6-8.9)
[2017-12-29 03:43] LABS: INR 1.7; Prothrombin Time 19.5 Seconds (9.4-12.1)
[2017-12-29 03:56] LABS: Calcium 8.5 mg/dL (8.6-10.3); Phosphorous 6.5 mg/dL (2.7-4.5); Potassium 4.5 mEq/L (3.5-5.1)
[2017-12-29] MEDS: Albuterol Neb 1.25 MG/3 ML VIAL IH SCH ×2 (04:00→11:22)
[2017-12-29] MEDS: Insulin LISPRO 300 UNITS/3 ML VIAL SQ SCH ×2 (08:35→12:16)
[2017-12-29] MEDS: Nystatin POWDER 30 GM BOTTLE TP SCH ×2 (08:35→11:44)
[2017-12-29] MEDS ORDERED: Albuterol 2.5 MG/3 ML NEBULIZER IH PRN (08:44)
[2017-12-29] MEDS: Metoprolol XL (24 HR) Succ 25 MG TAB.ER.24H PO SCH (08:50)
[2017-12-29] MEDS: Gabapentin 100 MG CAPSULE PO SCH (08:50)
[2017-12-29] MEDS: amLODIPine 5 MG TABLET PO SCH (08:50)
[2017-12-29] MEDS: Furosemide 20 MG TABLET PO SCH ×2 (08:50→12:23)
[2017-12-29] MEDS: Isosorbide MONOnitrate (24 HR) 30 MG TAB.ER.24H PO SCH (08:51)
[2017-12-29] MEDS: Calcium Acetate 667 MG CAPSULE PO SCH ×2 (08:51→12:23)
[2017-12-29] MEDS: hydrOXYzine pamoate 25 MG CAPSULE PO SCH (08:51)
[2017-12-29] MEDS: MetroNIDAZOLE 500 MG/100 ML 500 MG/100 ML BAG IVPB SCH ×2 (08:52)
[2017-12-29] MEDS: Insulin DETEMIR 100 UNIT/ML X5UNITS SQ SCH (08:54)
[2017-12-29] MEDS ORDERED: metroNIDAZOLE 500 MG TABLET PO SCH (09:00)
[2017-12-29] MEDS: Acetaminophen 325 MG TABLET PO PRN (09:50)
--- NOTE | 2017-12-29 10:44 | Nephrology Progress Note ---
Date of Encounter: 12/29/17 Time of Encounter: 10:44 - Assessment and Plan (1) ESRD (end stage renal disease) on dialysis Current Visit: No Status: Acute ESRD on HD TTS at [facility]. Last treatment was Friday, tolerated well. Avoid nephrotoxins and renal dose. Strict I/O (2) COPD (chronic obstructive pulmonary disease) Current Visit: Yes Status: Acute Per primary. Qualifiers: Qualified Code(s): J44.9 - Chronic obstructive pulmonary disease, unspecified (3) Abdominal wall abscess Current Visit: Yes Status: Acute Continue wound dressing changes per general surgery. Subjective Principal diagnosis: wound to abdomen Interval history: Patient seen and evaluated. Dressing to abdomen is clean dry and intact, she prefers I not remove it. Objective - Vital Signs Vital signs: Vital Signs Temp Pulse Resp BP Pulse Ox 12/29/17 07:41 98.0 F 80 18 141/81 97 12/29/17 04:44 98 F 89 18 148/62 98 12/29/17 04:01 18 97 12/28/17 23:34 98.1 F 82 16 112/54 99 12/28/17 22:46 17 100 12/28/17 19:51 98.4 F 78 17 123/53 100 12/28/17 15:53 18 98 12/28/17 15:35 98.3 F 86 16 143/77 98 12/28/17 12:19 98.0 F 88 18 133/67 96 Intake and Output 12/28/17 12/29/17 12/29/17 23:59 07:59 15:59 Intake Total 100 / 100 220 / 220 Balance 100 / 100 220 / 220 Intake: IV Fluids 100 / 100 100 / 100 Flagyl Premix 500 MG/100 ML 500 100 / 100 100 / 100 mg In 100 ml @ 100 mls/hr IVPB Q8HR [facility] Rx#:[id number] Oral 120 / 120 Other: Meal Breakfast Percent of Meal Consumed 100% # Voids 1 1 Weight 161.2 kg Blood Glucose* 120 82 - General Appearance General appearance: Present: well-developed, well-nourished, obese EENT: Present: ATNC, hearing intact, vision intact Neck: Present: supple Respiratory: Present: clear Cardiology: Present: edema (Trace bilat lower extremity edema.), normal S1, normal S2 Dialysis Vascular Access: Venous Catheter (Tunneled Line, JENNG C/D/I) Gastrointestinal: Present: normoactive bowel sounds, no tenderness, no guarding Integumentary: Present: no rash, warm and dry Neurologic: Present: alert and oriented x3 Psychiatric: Present: mood/affect appropriate, cooperative - Lab 12/29/17 03:15 12/29/17 03:15 Most recent lab results Calcium 8.5 mg/dL (8.6-10.3) L 12/29/17 03:15 Phosphorus 6.5 mg/dL (2.7-4.5) H 12/29/17 03:15 Consult Discharge Plan - Plan Additional Instructions: wash area with soap and water daily, apply santyl nickel thick to wound, cover with folded saline moistened 4x4 gauze, cover with dry 4x4 gauze and secure with medipore tape, change daily Referrals: wound [Other] (Patient to follow up with Dr Myrick in wound care) Mauro Dockery MD [Primary Care Provider] - Prescriptions: Collagenase Oint [Santyl] 90 gm TP DAILY #1 oint...g.
[2017-12-29 12:14] VITALS: BP 127/74
--- NOTE | 2017-12-29 12:56 | Discharge Summary ---
- NOTES TO OUTPATIENT PROVIDER Notes to Outpatient Provider: PC in 5 to 7 days. Wound clinic out pt Orders not resulted at time of discharge: Pending orders 12/26/17 23:16 Culture,Blood [BC] Stat 12/29/17 07:30 CT abd pelvis wo no iv no oral [CT] Routine 12/30/17 04:00 BMP [Basic Metabolic Panel] AM 0400 Complete Blood Count w/o Diff [HEME] AM 0400 PT/INR [Prothrombin Time INR] [COAG] AM 0400 12/31/17 04:00 BMP [Basic Metabolic Panel] AM 0400 Complete Blood Count w/o Diff [HEME] AM 0400 PT/INR [Prothrombin Time INR] [COAG] AM 0400 01/01/18 04:00 BMP [Basic Metabolic Panel] AM 0400 Complete Blood Count w/o Diff [HEME] AM 0400 PT/INR [Prothrombin Time INR] [COAG] AM 0400 01/02/18 04:00 PT/INR [Prothrombin Time INR] [COAG] AM 0400 01/03/18 04:00 PT/INR [Prothrombin Time INR] [COAG] AM 0400 Date of Encounter: 12/29/17 Time of Encounter: 12:46 - Discharge Diagnosis (1) Abdominal wall abscess Priority: Primary Status: Acute Assessment and Plan: Pt presented with draining wound to LLQ. ABD ultrasound with nonspecific subcutaneous changes to left lateral abdominal wall. Evaluated by Gen. surgery who recommended local wound care. Pt declined to have abdominal/pelvic CT. Explained to pt that CT will help determine dept of wound or if there is collection of fluid such as an abscess. She once again declined after 3 attempts and states she is claustrophobic and has trouble breathing laying flat. No obvious area of fluctuance or drainage abscess. Was on IV Vancomyicn, Flagyl and Levaquin. Wound culture in process. Will DC on Levaquin for few more days. Pt is to follow up out pt with wound clinic. Abdominal US US/US abdomen limited IMPRESSION: Nonspecific changes in the subcutaneous tissues area of concern left lateral abdominal wall. CT imaging would prove helpful for further assessment. No discrete fluid collection/abscess is seen on ultrasound. (2) ESRD (end stage renal disease) on dialysis Priority: Secondary Status: Acute Assessment and Plan: per hx. On HD TTS. Nephrology managing dialysis (3) Diabetes Priority: Secondary Status: Chronic Assessment and Plan: Per hx. Hgb A1c 8%; blood sugars variable. Holding home prandial insulin as it is a large dose and diet is likely more restricted while inpatient. Continue home long-acting. SSI. Will decrease home dose to 30 units BID from 75 units BID. Follow up out pt with PCP Recommend strictly monitoring blood sugar at home and titrate PRN. 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 Lower extremity venous Dopplers neg for DVT (5) COPD (chronic obstructive pulmonary disease) Priority: Secondary Status: Chronic Assessment and Plan: per hx. no evidence of exacerbation. Continue home inhalers Qualifiers: Qualified Code(s): J44.9 - Chronic obstructive pulmonary disease, unspecified (6) Essential hypertension Priority: Secondary Status: Acute Assessment and Plan: per hx. BP controlled. Continue home BP medication. (7) Atrial fibrillation Priority: Secondary Status: Acute Assessment and Plan: per hx. rate controlled. Continue home Coumadin, BB Qualifiers: Qualified Code(s): I48.91 - Unspecified atrial fibrillation Hospital course: History of present illness: Dr. Alex Mars is a 62-year-old female with a PMH of morbid obesity, arthritis, CHF, COPD, DVT, insulin-dependent diabetes mellitus, dialysis, GERD, hyperlipidemia, hypertension, migraine, osteoporosis, renal disease, thyroid disease who presented to [facility] ED on 12/26/17 for a non-healing wound on her pannus. Patient reports that she had had it for approximately one month; but it has gotten worse over the last week. Patient reports a similar wound on her RLE in the past that was a diabetic ulcer requiring debridement. She reports that her sugars have been running higher than normal. She reports that her glucose has been between 215 and 350. She has not used any antibiotics for her wound. Reports that this is very similar in appearance to her diabetic ulcer. Wound is approximately 5 x 3 cm. No purulent drainage; goes about 1 cm deep. Upon arrival to the emergency room, patients vital signs were as follows: Temp 97.8, HR 100, RR 18, BP 180/94, O2 sat 99. Laboratory analysis demonstrated a low hemoglobin of 11.1, sodium 135. In the ED, patient was given a one-time dose of vancomycin, Levaquin, and Flagyl. A culture of the wound was obtained, and surgery was consulted. Patient seen and examined at bedside; she reports that she has pain near her abdominal wound. Wound located in the left lower a bdomen; currently dressed. Denies having any fever, chills, nausea, vomiting, diarrhea, changes in bowel/bladder habits, shortness of breath, or chest pain. She has no further complaints this time. Discharge discussed with: patient - Time Spent with Patient Total time spent providing and/or coordinating discharge services: Greater than 30 minutes - Discharge Medications Prescriptions: Collagenase Oint [Santyl] 90 gm TP DAILY #1 oint...g. levoFLOXacin [Levaquin] 500 mg PO Q48H 10 Days #10 tablet Home Medications: Meclizine [Antivert] 25 mg PO TID PRN 09/12/14 [History] DiphenhydraMINE [Benadryl] 25 mg PO TID PRN 03/22/15 [History] Exenatide Microspheres [Bydureon Pen] 2 mg SQ WE 03/22/15 [History] Lidocaine Patch [Lidoderm 5% patch] 1 patch TP DAILY 03/22/15 [History] Nitroglycerin [Nitrostat] 0.4 mg SL Q5M PRN 03/22/15 [History] Promethazine [Phenergan] 25 mg PO TID PRN 03/22/15 [History] clonazePAM [Klonopin] 1 mg PO HS 03/22/15 [History] Albuterol Neb [AccuNeb] 1.25 mg IH QID 05/06/16 [History] Nystatin POWDER [Nystop] 1 appl TP BID 05/06/16 [History] Acetaminophen [Tylenol] 650 mg PO Q4-6H PRN 11/10/16 [History] Omeprazole [PriLOSEC] 40 mg PO DAILY 11/10/16 [History] Gabapentin [Neurontin] 100 mg PO TID #90 capsule 11/27/16 [Rx] Albuterol Sulfate [Ventolin Hfa] 2 puff IH Q4H PRN 08/12/17 [History] Calcium Acetate [Phos-LO] 1,334 mg PO TID 08/12/17 [History] Cyclobenzaprine [Flexeril] 10 mg PO TID PRN 08/12/17 [History] Docusate [Colace] 100 mg PO TID 08/12/17 [History] Doxepin HCl 50 mg PO HS 08/12/17 [History] Furosemide [Lasix] 40 mg PO QAM 08/12/17 [History] Insulin ASPART [Novolog Flexpen] 32 unit SQ TIDAC 08/12/17 [History] Levothyroxine Sodium [Levoxyl] 250 mcg PO QAM 08/12/17 [History] Metoprolol XL (24 HR) Succ [Toprol Xl] 25 mg PO DAILY 08/12/17 [History] Warfarin [Coumadin] 5 mg PO DAILY 08/12/17 [History] hydrOXYzine HCl [Hydroxyzine HCl] 25 mg PO TID 08/12/17 [History] Ergocalciferol (VITAMIN D2) [Vitamin D2] 50,000 unit PO QWEEK 09/23/17 [History] Furosemide [Lasix] 20 mg PO 1300 09/23/17 [History] Furosemide [Lasix] 40 mg PO QPM 09/23/17 [History] Amlodipine Besylate 10 mg PO DAILY 12/26/17 [History] Isosorbide MONOnitrate [Isosorbide Mononitrate ER] 30 mg PO DAILY 12/26/17 [History] Rosuvastatin Calcium [Crestor] 10 mg PO QPM 12/26/17 [History] Collagenase Oint [Santyl] 90 gm TP DAILY #1 oint...g. 12/28/17 [Rx] Insulin Glargine,Hum.rec.anlog [Lantus Solostar] 30 unit SQ BID #0 12/29/17 [Rx] levoFLOXacin [Levaquin] 500 mg PO Q48H 10 Days #10 tablet 12/29/17 [Rx] Allergies/Adverse Reactions: Allergy/AdvReac Type Severity Reaction Status Date / Time aspirin Allergy Hives Verified 10/09/17 06:39 cephalexin [From Keflex] Allergy Difficulty Verified 10/09/17 06:39 Breathing Cortisone Allergy See Verified 10/09/17 06:39 Comments ibuprofen Allergy Hives Verified 10/09/17 06:39 Iodinated Contrast- Oral and Allergy See Verified 10/09/17 06:39 IV Dye Comments [Iodinated Contrast Media - IV Dye] lidocaine [From Xylocaine] Allergy See Verified 10/09/17 06:39 Comments loratadine [From Claritin] Allergy Hives Verified 10/09/17 06:39 Penicillins Allergy See Verified 10/09/17 06:39 Comments Procaine [From Novocain] Allergy See Verified 10/09/17 06:39 Comments propoxyphene [From Darvon] Allergy See Verified 10/09/17 06:39 Comments pseudoephedrine Allergy Hives Verified 10/09/17 06:39 [From Sudafed] ropinirole [From Requip] Allergy See Verified 10/09/17 06:39 Comments acetaminophen AdvReac See Verified 10/09/17 06:39 Comments albuterol AdvReac Shakiness Verified 10/09/17 06:39 calcium AdvReac See Verified 10/09/17 06:39 Comments ceftriaxone [From Rocephin] AdvReac See Verified 10/09/17 06:39 Comments clindamycin AdvReac Hypotension Verified 10/09/17 06:39 codeine AdvReac Hypertensio Verified 10/09/17 06:39 n doxycycline AdvReac See Verified 10/09/17 06:39 Comments famotidine AdvReac See Verified 10/09/17 06:39 Comments hydrocodone AdvReac See Verified 10/09/17 06:39 Comments hydrocortisone AdvReac Hypertensio Verified 10/09/17 06:39 n ipratropium AdvReac See Verified 10/09/17 06:39 Comments methylprednisolone AdvReac Hypertensio Verified 10/09/17 06:39 [From Solu-Medrol] n Neomycin AdvReac See Verified 10/09/17 06:39 Comments NSAIDS (Non-Steroidal AdvReac See Verified 10/09/17 06:39 Anti-Inflamma Comments prednisone AdvReac Hypertensio Verified 10/09/17 06:39 n Sulfa (Sulfonamide AdvReac See Verified 10/09/17 06:39 Antibiotics) Comments terfenadine AdvReac See Verified 10/09/17 06:39 Comments tramadol AdvReac See Verified 10/09/17 06:39 Comments Date of admission: 12/26/17 19:27 Primary care physician: Mauro Dockery MD Consults: 12/26/17 18:55 Consult to Surgery [CONS] Stat Consulting Provider: [facility] Reason for Consult: Diabetic ulcer with eshcar Call Completed: No 12/27/17 10:32 Consult to Nephrology [CONS] Routine Consulting Provider: [facility]/SANCHEZ/STEVEN/BABITA Reason for Consult: TTHS dialysis patient Call Completed: Yes 12/27/17 10:45 Consult to Dialysis [CONS] ONCE Discharging clinician: Malu Covington Anticipated date of discharge: 12/29/17 - Constitutional Vitals: Temp Pulse Resp BP Pulse Ox 98.1 F 83 18 127/74 94 12/29/17 12:13 12/29/17 12:13 12/29/17 12:13 12/29/17 12:13 12/29/17 12:13 General appearance: Present: cooperative, A&O X 3, pleasant, no acute distress Exam: General appearance: Present: A&O X 3, pleasant, no acute distress, morbidly obese. - Head Head exam: Present: atraumatic, normocephalic - Eye Eye exam: Present: PERRL, conjuntiva pink, sclera anicteric Pupils: Present: PERRL - Neck Neck exam general surgery: Present: supple, trachea midline. Absent: lymphadenopathy - Respiratory Respiratory exam: Present: chest wall tenderness, CTAB. Absent: accessory muscle use, rales, rhonchi, wheezes - Cardiovascular Cardiovascular exam: Present: RRR, +S1, +S2. Absent: diastolic murmur, gallop, rubs, systolic murmur - GI/Abdominal GI/Abdominal exam: Present: Morbidly obese, normal bowel sounds, soft, no peritoneal signs. Absent: distended, tenderness - Extremities Exam Extremities exam: Present: warm, radial pulses palpable and symmetrical, bilateral lower extremity edema Absent: calf tenderness, cyanotic - Neurological Exam Neurological exam: Present: CN II-XII intact, oriented X3, no focal deficits. Absent: pronater drift, facial droop, speech deficit - Skin Skin exam: LLQ ABD wound with yellow slough and area of necrotic tissue to wound bed; bowel odor noted. No drainage. - Patient Status Disposition: Home Health Service Condition: Fair Overall status at discharge: patient is progressing back to baseline - Discharge Instructions Instructions: Levofloxacin (By mouth), Collagenase (On the skin) Follow Up With: wound [Other] - 01/15/18 3:30 pm (Patient to follow up with Dr Myrick in wound care) Alysha Baum, [employer] [Advanced Practice Nurse] - 12/31/17 10:00 am Additional Instructions: wash area with soap and water daily, apply santyl nickel thick to wound, cover with folded saline moistened 4x4 gauze, cover with dry 4x4 gauze and secure with medipore tape, change daily - Diet and Activity Activity: increase activity as tolerated Diet: diabetic diet, other (Renal diet)
[2017-12-29] MEDS ORDERED: *HR* Warfarin 3 MG TABLET PO ONE (18:00)
[2017-12-29] MEDS ORDERED: Aminoglycoside Consult 1 EACH MC ONE (19:28)
[2017-12-29] MEDS ORDERED: Insulin LISPRO 300 UNITS/3 ML VIAL SQ SCH (21:00)
[2017-12-30] MEDS ORDERED: levoFLOXacin 500 MG TABLET PO SCH (09:00)
[2017-12-31] MEDS ORDERED: EXENATIDE MICROSPHERES SQ SCH (09:00)
== END 2017-12-29 14:34 | disposition home health service (06) ==
LOC: EMEROOARM 17:24 → 2ANU 17:24
PROVIDERS: ADMIT Internal Medicine; ATTEND Internal Medicine

== ENCOUNTER 2018-03-10 13:40 | Observation (INO) ==
[2018-03-10 14:37] LABS: Basophils % 0.9 %; Eosinophils # 0.3 K/mcL (0.0-0.6); Eosinophils % 5.6 %; Hematocrit 38.6 % (35.3-44.9); Hemoglobin 11.5 g/dL (11.5-15.4); Immature Granulocytes % 1.1 % (0-4); Lymphocytes # 1.1 K/mcL (0.6-4.6); Mean Corpuscular HGB Conc 29.8 g/dL (31.6-35.5); Mean Corpuscular Volume 100.8 fL (83.0-100.0); Mean Platelet Volume 8.9 fL (9.4-12.4); Monocytes # 0.3 K/mcL (0.0-1.3); Monocytes % 6.4 %; Neutrophils # 2.8 K/mcL (1.6-8.9); Platelet Count 189 K/mcL (140-400); Red Blood Count 3.83 M/mcL (3.82-4.97)
[2018-03-10] MEDS ORDERED: Isovue-370 500 ML BOTTLE IVP ONE (14:38)
[2018-03-10 14:49] LABS: INR 1.4; Prothrombin Time 15.7 Seconds (9.4-12.1)
[2018-03-10 14:51] LABS: Activated Partial Thrombo Time 49.9 Seconds (26.0-36.0)
[2018-03-10 14:59] LABS: BUN/Creatinine Ratio 10 (6-26); Blood Urea Nitrogen 31 mg/dL (8-23); Calcium 7.5 mg/dL (8.6-10.3); Carbon Dioxide 24 mEq/L (23-29); Chloride 101 mEq/L (98-107); Glucose 224 mg/dL (70-105); Osmolality,Calculated 296 (280-300); Potassium 4.4 mEq/L (3.5-5.1); Sodium 136 mEq/L (136-145); Troponin I < 0.03 ng/mL (< 0.04); eGFR For Non-African Americans 16 (> 60)
--- NOTE | 2018-03-10 15:25 | Emergency Department Note ---
Disposition Clinical Impression: ESRD (end stage renal disease) on dialysis Chest pain Qualifiers: Chest pain type: unspecified Qualified Code(s): R07.9 - Chest pain, unspecified DM (diabetes mellitus), type 2, uncontrolled Qualifiers: Glycemic state: with hyperglycemia Qualified Code(s): E11.65 - Type 2 diabetes mellitus with hyperglycemia Disposition: Admitted As Inpatient Condition: Fair Time of Disposition: 15:42 General Adult HPI - General Chief complaint: ED Chest Pain Stated complaint: CP Time Seen by Provider: 03/10/18 13:52 Source: patient, EMS Mode of arrival: EMS Limitations: no limitations Nursing Notes Reviewed: Yes Vital Signs Reviewed: Yes - History of Present Illness HPI Narrative: Patient is a 63-year-old female presenting with chest and back pain. Patient has history of ESRD currently on dialysis, COPD, CHF, diabetes, hypertension, hyperlipidemia. Patient has history of end-stage renal disease currently on dialysis, Friday, and Friday. Patient was recently admitted to the hospital and discharged 3 days ago, for fluid overload and hyperkalemia. Patient states that today she was at dialysis, senior living through her treatment, when her back pain increased shooting into her chest. She states that she has had this same back pain since Friday being discharged, however this is significantly increased today. She describes the pain as sharp shooting pain in her back. She also states that today while at dialysis she began to have chest pain in the middle of her chest shooting into her left arm. She denies associated shortness of breath more than usual, she does have history of COPD currently on 3 L liters nasal cannula chronically. She has not had to increase his. She denies any nausea, vomiting, diaphoresis or exertional symptoms. She is also had a cough for the past week, states his gotten worse with productive cough. She denies fevers or chills. She states however the cough has gotten worse. Patient denies abdominal pain, nausea or vomiting. She also states that she has recently been treated for a urinary tract infection. Patient is also currently being managed by Dr. Schroeder for chronic diabetic ulcers to bilateral inguinal folds. Pain Scale: 0 - Related Data Home Medications Medication Instructions Recorded Confirmed RX: Meclizine [Antivert] 25 mg PO TID PRN 09/12/14 12/26/17 RX: DiphenhydraMINE [Benadryl] 25 mg PO TID PRN 03/22/15 12/26/17 RX: Exenatide Microspheres 2 mg SQ WE 03/22/15 12/26/17 [Bydureon Pen] RX: Lidocaine Patch [Lidoderm 5% 1 patch TP DAILY 03/22/15 12/26/17 patch] RX: Nitroglycerin [Nitrostat] 0.4 mg SL Q5M PRN 03/22/15 12/26/17 RX: Promethazine [Phenergan] 25 mg PO TID PRN 03/22/15 12/26/17 RX: clonazePAM [Klonopin] 1 mg PO HS 03/22/15 12/26/17 RX: Albuterol Neb [AccuNeb] 1.25 mg IH QID 05/06/16 12/26/17 RX: Nystatin POWDER [Nystop] 1 appl TP BID 05/06/16 12/26/17 RX: Acetaminophen [Tylenol] 650 mg PO Q4-6H PRN 11/10/16 12/26/17 RX: Omeprazole [PriLOSEC] 40 mg PO DAILY 11/10/16 12/26/17 RX: Albuterol Sulfate [Ventolin 2 puff IH Q4H PRN 08/12/17 12/26/17 Hfa] RX: Calcium Acetate [Phos-LO] 1,334 mg PO TID 08/12/17 12/26/17 RX: Cyclobenzaprine [Flexeril] 10 mg PO TID PRN 08/12/17 12/26/17 RX: Docusate [Colace] 100 mg PO TID 08/12/17 12/26/17 RX: Doxepin HCl 50 mg PO HS 08/12/17 12/26/17 RX: Furosemide [Lasix] 40 mg PO QAM 08/12/17 12/26/17 RX: Insulin ASPART [Novolog 32 unit SQ TIDAC 08/12/17 12/26/17 Flexpen] RX: Levothyroxine Sodium [Levoxyl] 250 mcg PO QAM 08/12/17 12/26/17 RX: Metoprolol XL (24 HR) Succ 25 mg PO DAILY 08/12/17 12/26/17 [Toprol Xl] RX: Warfarin [Coumadin] 5 mg PO DAILY 08/12/17 12/26/17 RX: hydrOXYzine HCl [Hydroxyzine 25 mg PO TID 08/12/17 12/26/17 HCl] RX: Ergocalciferol (VITAMIN D2) 50,000 unit PO QWEEK 09/23/17 12/26/17 [Vitamin D2] RX: Furosemide [Lasix] 20 mg PO 1300 09/23/17 12/26/17 RX: Furosemide [Lasix] 40 mg PO QPM 09/23/17 12/26/17 RX: Amlodipine Besylate 10 mg PO DAILY 12/26/17 12/26/17 RX: Isosorbide MONOnitrate 30 mg PO DAILY 12/26/17 12/26/17 [Isosorbide Mononitrate ER] RX: Rosuvastatin Calcium [Crestor] 10 mg PO QPM 12/26/17 12/26/17 Previous Rx's Medication Instructions Recorded RX: Gabapentin [Neurontin] 100 mg PO TID #90 capsule 11/27/16 RX: Collagenase Oint [Santyl] 90 gm TP DAILY #1 oint...g. 12/28/17 RX: Insulin Glargine,Hum.rec.anlog 30 unit SQ BID #0 12/29/17 [Lantus Solostar] RX: predniSONE [Prednisone] 50 mg PO DAILY #4 tablet 03/07/18 Allergies Allergy/AdvReac Type Severity Reaction Status Date / Time aspirin Allergy Hives Verified 10/09/17 06:39 cephalexin [From Keflex] Allergy Difficulty Verified 10/09/17 06:39 Breathing Cortisone Allergy See Verified 10/09/17 06:39 Comments ibuprofen Allergy Hives Verified 10/09/17 06:39 Iodinated Contrast- Oral and Allergy See Verified 10/09/17 06:39 IV Dye Comments [Iodinated Contrast Media - IV Dye] lidocaine [From Xylocaine] Allergy See Verified 10/09/17 06:39 Comments loratadine [From Claritin] Allergy Hives Verified 10/09/17 06:39 Penicillins Allergy See Verified 10/09/17 06:39 Comments Procaine [From Novocain] Allergy See Verified 10/09/17 06:39 Comments propoxyphene [From Darvon] Allergy See Verified 10/09/17 06:39 Comments pseudoephedrine Allergy Hives Verified 10/09/17 06:39 [From Sudafed] ropinirole [From Requip] Allergy See Verified 10/09/17 06:39 Comments acetaminophen AdvReac See Verified 10/09/17 06:39 Comments albuterol AdvReac Shakiness Verified 10/09/17 06:39 calcium AdvReac See Verified 10/09/17 06:39 Comments ceftriaxone [From Rocephin] AdvReac See Verified 10/09/17 06:39 Comments clindamycin AdvReac Hypotension Verified 10/09/17 06:39 codeine AdvReac Hypertensio Verified 10/09/17 06:39 n doxycycline AdvReac See Verified 10/09/17 06:39 Comments famotidine AdvReac See Verified 10/09/17 06:39 Comments hydrocodone AdvReac See Verified 10/09/17 06:39 Comments hydrocortisone AdvReac Hypertensio Verified 10/09/17 06:39 n ipratropium AdvReac See Verified 10/09/17 06:39 Comments methylprednisolone AdvReac Hypertensio Verified 10/09/17 06:39 [From Solu-Medrol] n Neomycin AdvReac See Verified 10/09/17 06:39 Comments NSAIDS (Non-Steroidal AdvReac See Verified 10/09/17 06:39 Anti-Inflamma Comments prednisone AdvReac Hypertensio Verified 10/09/17 06:39 n Sulfa (Sulfonamide AdvReac See Verified 10/09/17 06:39 Antibiotics) Comments terfenadine AdvReac See Verified 10/09/17 06:39 Comments tramadol AdvReac See Verified 10/09/17 06:39 Comments All systems ED: reviewed and negative except as stated. Review of Systems: As Per HPI Constitutional: Denies: fever, chills, weakness, weight change ENT ED: Reports: congestion. Denies: ear pain, throat pain, dental pain, hearing loss, epistaxis, dysphagia Cardiovascular: Reports: chest pain, dyspnea on exertion. Denies: palpitations, syncope Respiratory: Reports: cough, dyspnea, wheezes, sputum production. Denies: hemoptysis Gastrointestinal: Denies: abdominal pain, nausea, vomiting, diarrhea, constipation Genitourinary: Reports: dysuria, frequency. Denies: urgency, hematuria Musculoskeletal: Reports: back pain. Denies: neck pain Integumentary: Denies: rash Neurological: Denies: headache, weakness, numbness, paresthesias, confusion Endocrine: Denies: fatigue Past Medical History - Past Medical History Attestation: Yes The following information was validated with the patient. Medical history: Reports: arthritis, CHF, COPD, DVT, diabetes, dialysis, GERD, hyperlipidemia, hypertension, migraine, osteoporosis, renal disease, thyroid disease, TIA Surgical history: Reports: appendectomy, hysterectomy, orthopedic, other, IVC filter Psychiatric history: Reports: anxiety, depression [employer] history: Reports: bilateral 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 - Social History Smoking Status: Former smoker Smokeless Tobacco Status: No Alcohol use: Reports: occasionally Drug use: Reports: none Physical Exam - General Limitations: no limitations General appearance: alert - Head Head exam: atraumatic, normocephalic, normal inspection - Eye Eye exam: Present: normal appearance, PERRL, EOMI - ENT ENT exam: normal exam, normal oropharynx, mucous membranes moist - Neck Neck exam: Present: normal inspection, full ROM, trachea midline - Chest Chest inspection: Present: normal inspection, symmetric chest wall rise - Respiratory Respiratory exam: Present: wheezes, prolonged expiratory phase, other (Decreased breath sounds throughout, prolonged expiratory phase with expiratory wheezes, diffuse crackles at the bases bilaterally) - Cardiovascular Cardiovascular exam: Present: regular rate, normal rhythm - Abdominal Exam Abdominal exam: Present: soft, Non-Tender, other (Obese abdomen). Absent: tenderness, distention, guarding, rebound, rigidity - Extremities Exam Extremities exam: Present: pedal edema (2-3+ pitting edema bilaterally to lower extremities). Absent: tenderness - Expanded Lower Extremity Exam Neurovascular/Tendon exam: Absent: motor deficit, sensory deficit, tendon deficit - Neurological Exam Neurological exam: Present: alert, oriented X3, CN II-XII intact - Psychiatric Psychiatric exam: Present: normal affect, normal mood - Skin Skin exam: Present: warm, dry, intact, normal color. Absent: rash Course Vital Signs Temperature 98.1 F 03/10/18 13:45 Pulse Rate 77 03/10/18 13:45 Respiratory Rate 16 03/10/18 13:45 Blood Pressure 146/90 03/10/18 13:45 O2 Sat by Pulse Oximetry 95 03/10/18 13:45 Temperature 98.1 F 03/10/18 13:45 Pulse Rate 76 03/10/18 15:48 Respiratory Rate 18 03/10/18 15:48 Blood Pressure 152/85 03/10/18 15:48 O2 Sat by Pulse Oximetry 93 03/10/18 15:48 Oxygen Delivery Oxygen Delivery Nasal Cannula Medical Decision Making - MDM Narrative Medical decision making narrative: Patient is a 63-year-old female presenting with chest pain and back pain. Patient has history of end-stage renal disease currently on dialysis, hypertension, hyperlipidemia, congestive heart failure, CAD and COPD. Patient has had constant back pain since Friday, since discharge for fluid overload 4 days ago. Patient was at dialysis, in the middle of her treatment, and began to have chest pain located in the middle of her chest radiating into the left arm. Patient is chronically on 3 L nasal cannula. On examination, patient is an obese female, she has 3 L nasal cannula,'s pulse ox at 97% in the room, she is regular rate and rhythm, does have scattered wheezes with prolonged expiratory phase, patient denies current shortness of breath. Patient is tender to palpation on her back, suspect this is most likely secondary to bus to skeletal is patient's been coughing for the past week. Patient denies any fevers or chills. CBC shows no leukocytosis, BMP shows chronic CK D, appears slightly better than last admission, potassium is normal. Troponin is within normal limits, EKG shows no acute ischemic changes. Chest x-ray does show questionable left opacity, suspect this is most likely pleural effusion as patient does appear slightly be fluid overloaded, BNP is elevated in the 120s, not elevated as it has been in the past. Feels that this point in time, ACS rule out as well as for continued dialysis is necessary for this patient. I did speak with Dr. Jeffries regarding this patient, she states that dialysis appropriate and she will get this ready for the patient. At this point in time, I will the patient for further evaluation and treatment. At time of admission, patient is stable and agreeable to disposition. I did offer CTA to the patient, given concern for history of DVT, currently on Coumadin, as well as the fact that the patient was recently admitted, she adamantly declines wanting further imaging such as a CTA, she states that she is claustrophobic, she declines wanting anything for anxiety and states she will not get this test. This was explained to the patient, risk and benefits she understands and states she would like to be admitted without this testing. - Medical Records Medical records reviewed: Yes I reviewed the patient's medical records. - Lab Data Lab results reviewed: Yes I reviewed the patient's lab results. Result diagrams: 03/10/18 14:15 03/10/18 14:15 Lab Results 03/10/18 03/10/18 03/10/18 Range/Units 14:05 14:14 14:15 WBC 4.5 (4.3-11.1) K/mcL RBC 3.83 (3.82-4.97) M/mcL Hgb 11.5 (11.5-15.4) g/dL Hct 38.6 (35.3-44.9) % MCV 100.8 H (83.0-100.0) fL MCH 30.0 (28.0-33.3) pg MCHC 29.8 L (31.6-35.5) g/dL RDW 19.0 H (11.5-14.5) % Plt Count 189 (140-400) K/mcL MPV 8.9 L (9.4-12.4) fL Immature Gran % 1.1 (0-4) % Seg Neutrophils % 62.0 % Lymphocytes % 24.0 % Monocytes % 6.4 % Eosinophils % 5.6 % Basophils % 0.9 % Neutrophils # 2.8 (1.6-8.9) K/mcL Lymphocytes # 1.1 (0.6-4.6) K/mcL Monocytes # 0.3 (0.0-1.3) K/mcL Eosinophils # 0.3 (0.0-0.6) K/mcL Basophils # 0.0 (0.0-0.2) K/mcL PT 15.7 H (9.4-12.1) Seconds INR 1.4 APTT 49.9 H (26.0-36.0) Seconds Sodium (136-145) mEq/L Potassium (3.5-5.1) mEq/L Chloride (98-107) mEq/L Carbon Dioxide (23-29) mEq/L BUN (8-23) mg/dL Creatinine (0.60-1.20) mg/dL Est GFR ( Amer) (> 60) Est GFR (Non-Af Amer) (> 60) BUN/Creatinine Ratio (6-26) Glucose (70-105) mg/dL Calculated Osmolality (280-300) Calcium (8.6-10.3) mg/dL Troponin I (< 0.04) ng/mL B-Natriuretic Peptide 156 H (Less than 100) pg/mL 03/10/18 Range/Units 14:15 WBC (4.3-11.1) K/mcL RBC (3.82-4.97) M/mcL Hgb (11.5-15.4) g/dL Hct (35.3-44.9) % MCV (83.0-100.0) fL MCH (28.0-33.3) pg MCHC (31.6-35.5) g/dL RDW (11.5-14.5) % Plt Count (140-400) K/mcL MPV (9.4-12.4) fL Immature Gran % (0-4) % Seg Neutrophils % % Lymphocytes % % Monocytes % % Eosinophils % % Basophils % % Neutrophils # (1.6-8.9) K/mcL Lymphocytes # (0.6-4.6) K/mcL Monocytes # (0.0-1.3) K/mcL Eosinophils # (0.0-0.6) K/mcL Basophils # (0.0-0.2) K/mcL PT (9.4-12.1) Seconds INR APTT (26.0-36.0) Seconds Sodium 136 (136-145) mEq/L Potassium 4.4 (3.5-5.1) mEq/L Chloride 101 (98-107) mEq/L Carbon Dioxide 24 (23-29) mEq/L BUN 31 H (8-23) mg/dL Creatinine 2.99 H (0.60-1.20) mg/dL Est GFR ( Amer) 19 L (> 60) Est GFR (Non-Af Amer) 16 L (> 60) BUN/Creatinine Ratio 10 (6-26) Glucose 224 H (70-105) mg/dL Calculated Osmolality 296 (280-300) Calcium 7.5 L (8.6-10.3) mg/dL Troponin I < 0.03 (< 0.04) ng/mL B-Natriuretic Peptide (Less than 100) pg/mL - Radiology Data Radiology results reviewed: Yes I reviewed the patient's radiology results. Chest X-Ray 03/10/18 14:05 IMPRESSION: Left basilar opacities are most suspicious for atelectasis and small left pleural effusion. Infectious airspace disease such as aspiration or pneumonia could be present in the appropriate context. Background of stable cardiomegaly, central vascular congestion and borderline edema similar to the prior exam. D/ / Willie Anderson / Willie Anderson Interpreting Provider: Willie Anderson - EKG Data EKG #1 EKG attestation: Yes I reviewed and interpreted this EKG. EKG results narrative: EKG performed at 1349 with ventricular rate of 75, regular rate and rhythm, normal axis, no evidence of LVH, there is low voltage is this is secondary to body habitus, intervals are within normal limits. S.B.A.R. - S.B.A.Delaney Situation: Demographics, MOA Background: Presenting Complaint, Relevant PMH, Meds, & Allergies Assessment: Vital Signs, Course and respsone to treatment, Exam Concerns, Patient/Family Expectation, Pertinant Lab Results, Outstanding Labs Recommendation: Barrier(s) to disposition, Recommendation based on pending studies, treatments, or consults S.B.A.R. Report Given to: Dr. Sivakumar SalcidoBPawan Repor Time: 15:42 (accepted) Attestation Statement - Attestation Attestation: I, Slade Kamara, examined this patient and my medical decision-making was reviewed with the WELDING SETTER/PA/Advanced Practice Nurse/Resident Physician. I agree with the documented findings, disposition and treatment plan as described except to the extent set forth below. 63-year-old female presents emergency Department with concerns of chest pain. Patient was midway through her dialysis session when she started to have back pain that radiated to her anterior chest. She describes the pain is sharp and stabbing. She does state that has been constant throughout the day however it worsened while she was at dialysis. She denied associated diaphoresis, lightheadedness, syncopal episode, palpitations, abdominal pain, hematochezia, melena. Patient does report an intermittent cough but does not associate the pain with coughing. She reports the pain in her back is more of a spasm. Patient was recently admitted for similar chest pain with the past few weeks. She is noncompliant with her medications and dialysis sessions. I was concerned about possible aortic dissection as the patient had pain rating for her back to her chest. I will offered and recommended a CTA of the chest to rule out aortic dissection and PE however the patient adamantly refuses even after discussion of risks and benefits. We offered to pretreat with steroid and Benadryl, patient r efused. Patient was able to repeat back in own words my concerns about her chest pain. Laboratory evaluation did not show elevation of her troponin, EKG did not show evidence of acute STEMI. EKG showed normal sinus rhythm with a rate of 75 without evidence of STEMI. Patient will require further dialysis and will be admitted to the hospital. We will also obtain repeat troponins to additionally rule out cardiac disease although her pain seems more musculoskeletal in nature.
--- NOTE | 2018-03-10 16:18 | Internal Med History&Physical ---
<Roni Hightower - Last Filed: 03/10/18 17:39> Date of Encounter: 03/10/18 Time of Encounter: 17:00 Internal Medicine - H&P: HPI Chief complaint: Back pain and Chest Pain Admitted From: Emergency Dept Plans for Post Hospital Care: Home History of present illness: Ms. Mars is a 63 year old female with history of CHF, COPD on 3 L of home O2, atrial fibrillation on Coumadin, DVTs, diabetes mellitus, end-stage renal disease on hemodialysis TTS, recent admission for pneumonia due to rhinovirus who presents to the hospital with sudden back pain with chest pain that occurred during hemodialysis this afternoon. The patient says that she was at hemodialysis where approximately 2 hours into therapy she developed a very sudden sharp back pain between her shoulder blades which radiated towards the center of her chest. She said the pain was severe, radiated to her chest, and initially took her breath away. It was not associated with continued shortness of breath, and it did last for approximately 1.5 hours. It did resolve on its own. Nothing seemed to make the pain any better or worse, however it did just seemed to resolve on its own. When asked, she does reveal that this pain has occurred before and has typically been associated with muscle spasms in her back. She says that typically at home she is able to take her muscle relaxers as scheduled along with Tylenol which is sufficient to relieve the pain, however today it seemed to be unhelpful. She says that this pain is exactly similar to that pain however. She has no other associated symptoms. There is no palpitations, diaphoresis. The patient does admit to a battery of other positive review of systems, however they do not seem to be associated with this. Significantly, the patient was recently admitted to this hospital and discharged on 03/07/18 for pneumonia secondary to rhinovirus and COPD exacerbation at which time she was treated with prednisone. She says that she was able to complete a proximally 2 hours of her hemodialysis this afternoon, and then she was transported to the hospital for this chest pain rule out. She does admit that she has had significant fluid overload and swelling, however she is unsure why. When asked, she does note that she is been eating relatively unhealthy foods including cheese burgers, hashbrowns, and other very salty foods. She does say that her appetite has been poor, however when she does eat its generally very salty foods. Denies drinking significant amounts of fluids. In the emergency room, the patient did receive a set of labs which demonstrated relatively unremarkable chemistries with elevated blood glucoses. Her CBC was relatively unremarkable as well. She did have an INR that was 1.4. Her vital signs also were stable, and her oxygen saturation was normal on 2 L. She did have a chest x-ray which showed left basilar opacity with left pleural effusion which seems improved overall compared to her chest x-rays from previous visit. The patient was offered a CTA of her chest considering her symptoms, however the patient refused. She was admitted to the medicine service for rule out of ACS. Past Med Surg Social Fam HX - Past Medical History Medical history: arthritis, CHF, COPD, DVT, diabetes, dialysis, GERD, hyperlipidemia, hypertension, migraine, osteoporosis, renal disease, thyroid disease, TIA Additional medical history: sleep apnea Psychiatric history: anxiety, depression - Past Surgical History Surgical History: appendectomy, hysterectomy, orthopedic, other, IVC filter Additional surgical history: carpal tunnel surgery left hand. perma cath change 2 to 3 weeks ago - Social History Smoking Status: Former smoker Smokeless Tobacco Status: No Alcohol use: occasionally Drug use: none - Family History Father Adopted: No Family Member Ethnicity: Non- Living Status: Hx Family Cardiac Disorders: Yes (CHF, HTN) Hx Family GI Disorders: No Hx Family Endocrine Disorder: Yes (DM) Hx Family Neurologic Disorders: Yes Brother Family Member Ethnicity: Non- Living Status: Hx Family Cardiac Disorders: Yes (CHF, NC) Sister Family Member Ethnicity: Non- Living Status: Hx Family Cardiac Disorders: Yes (CHF) Mother Adopted: No Family Member Ethnicity: Non- Living Status: Hx Family Cardiac Disorders: Yes (DVTs) Hx Family Cancer: Yes (Metastatic) Hx Family GI Disorders: No Hx Family Endocrine Disorder: Yes (DM) Internal Medicine - H&P: Meds Meclizine [Antivert] 25 mg PO TID PRN 09/12/14 [History] DiphenhydraMINE [Benadryl] 25 mg PO TID PRN 03/22/15 [History] Exenatide Microspheres [Bydureon Pen] 2 mg SQ WE 03/22/15 [History] Lidocaine Patch [Lidoderm 5% patch] 1 patch TP DAILY 03/22/15 [History] Nitroglycerin [Nitrostat] 0.4 mg SL Q5M PRN 03/22/15 [History] Promethazine [Phenergan] 25 mg PO TID PRN 03/22/15 [History] clonazePAM [Klonopin] 1 mg PO HS 03/22/15 [History] Albuterol Neb [AccuNeb] 1.25 mg IH QID 05/06/16 [History] Nystatin POWDER [Nystop] 1 appl TP BID 05/06/16 [History] Acetaminophen [Tylenol] 650 mg PO Q4-6H PRN 11/10/16 [History] Omeprazole [PriLOSEC] 40 mg PO DAILY 11/10/16 [History] Gabapentin [Neurontin] 100 mg PO TID #90 capsule 11/27/16 [Rx] Albuterol Sulfate [Ventolin Hfa] 2 puff IH Q4H PRN 08/12/17 [History] Calcium Acetate [Phos-LO] 1,334 mg PO TID 08/12/17 [History] Cyclobenzaprine [Flexeril] 10 mg PO TID PRN 08/12/17 [History] Docusate [Colace] 100 mg PO TID 08/12/17 [History] Doxepin HCl 50 mg PO HS 08/12/17 [History] Furosemide [Lasix] 40 mg PO QAM 08/12/17 [History] Insulin ASPART [Novolog Flexpen] 32 unit SQ TIDAC 08/12/17 [History] Levothyroxine Sodium [Levoxyl] 250 mcg PO QAM 08/12/17 [History] Metoprolol XL (24 HR) Succ [Toprol Xl] 25 mg PO DAILY 08/12/17 [History] Warfarin [Coumadin] 5 mg PO DAILY 08/12/17 [History] hydrOXYzine HCl [Hydroxyzine HCl] 25 mg PO TID 08/12/17 [History] Ergocalciferol (VITAMIN D2) [Vitamin D2] 50,000 unit PO QWEEK 09/23/17 [History] Furosemide [Lasix] 20 mg PO 1300 09/23/17 [History] Furosemide [Lasix] 40 mg PO QPM 09/23/17 [History] Amlodipine Besylate 10 mg PO DAILY 12/26/17 [History] Isosorbide MONOnitrate [Isosorbide Mononitrate ER] 30 mg PO DAILY 12/26/17 [History] Rosuvastatin Calcium [Crestor] 10 mg PO QPM 12/26/17 [History] Collagenase Oint [Santyl] 90 gm TP DAILY #1 oint...g. 12/28/17 [Rx] Insulin Glargine,Hum.rec.anlog [Lantus Solostar] 30 unit SQ BID #0 12/29/17 [Rx] predniSONE [Prednisone] 50 mg PO DAILY #4 tablet 03/07/18 [Rx] Allergy/AdvReac Type Severity Reaction Status Date / Time aspirin Allergy Hives Verified 10/09/17 06:39 cephalexin [From Keflex] Allergy Difficulty Verified 10/09/17 06:39 Breathing Cortisone Allergy See Verified 10/09/17 06:39 Comments ibuprofen Allergy Hives Verified 10/09/17 06:39 Iodinated Contrast- Oral and Allergy See Verified 10/09/17 06:39 IV Dye Comments [Iodinated Contrast Media - IV Dye] lidocaine [From Xylocaine] Allergy See Verified 10/09/17 06:39 Comments loratadine [From Claritin] Allergy Hives Verified 10/09/17 06:39 Penicillins Allergy See Verified 10/09/17 06:39 Comments Procaine [From Novocain] Allergy See Verified 10/09/17 06:39 Comments propoxyphene [From Darvon] Allergy See Verified 10/09/17 06:39 Comments pseudoephedrine Allergy Hives Verified 10/09/17 06:39 [From Sudafed] ropinirole [From Requip] Allergy See Verified 10/09/17 06:39 Comments acetaminophen AdvReac See Verified 10/09/17 06:39 Comments albuterol AdvReac Shakiness Verified 10/09/17 06:39 calcium AdvReac See Verified 10/09/17 06:39 Comments ceftriaxone [From Rocephin] AdvReac See Verified 10/09/17 06:39 Comments clindamycin AdvReac Hypotension Verified 10/09/17 06:39 codeine AdvReac Hypertensio Verified 10/09/17 06:39 n doxycycline AdvReac See Verified 10/09/17 06:39 Comments famotidine AdvReac See Verified 10/09/17 06:39 Comments hydrocodone AdvReac See Verified 10/09/17 06:39 Comments hydrocortisone AdvReac Hypertensio Verified 10/09/17 06:39 n ipratropium AdvReac See Verified 10/09/17 06:39 Comments methylprednisolone AdvReac Hypertensio Verified 10/09/17 06:39 [From Solu-Medrol] n Neomycin AdvReac See Verified 10/09/17 06:39 Comments NSAIDS (Non-Steroidal AdvReac See Verified 10/09/17 06:39 Anti-Inflamma Comments prednisone AdvReac Hypertensio Verified 10/09/17 06:39 n Sulfa (Sulfonamide AdvReac See Verified 10/09/17 06:39 Antibiotics) Comments terfenadine AdvReac See Verified 10/09/17 06:39 Comments tramadol AdvReac See Verified 10/09/17 06:39 Comments All Systems PM: A 10-system review of systems was performed and is negative for pertinent findings except as documented above in the HPI. Review of systems: Constitutional: Denies weight loss, generalized fatigue. Admits to fever and chills Head/Neck: Denies BRICE, neck stiffness EENT: Denies vision changes/blurriness, sore throat. Admits to rhinorrhea and congestion CVS: Denies palpitations. Admits to chest pain, MONTES, orthopnea, edema, PND. Most of these are chronic Pulm: Admits to SOB, cough, sputum which are primarily chronic but do seem worsened. Denies hemoptysis, wheezing GI: Denies abdominal pain, nausea, vomiting, constipation, melena, hematemasis. Admits to 15 episodes of liquid stools in the past 2 days : Denies dysuria, increased frequency, urgency, hematuria Heme: Denies ease of bleeding or bruising MSK: Denies joint pain, limited ROM Skin: Denies rashes, color changes. Admits to one skin ulcer on left abdom en/hip Neuro: Denies BRICE, paresthesias, focal deficits, ataxia - Constitutional Vitals: Temp Pulse Resp BP Pulse Ox 98.1 F 76 18 152/85 93 03/10/18 13:45 03/10/18 15:48 03/10/18 15:48 03/10/18 15:48 03/10/18 15:48 Exam: Gen: Vitals noted. No acute distress. Morbidly obese, appears older than stated age Eyes: anicteric sclerae, moist conjunctivae; no lid-lag; Pupils equal and reactive to light HENT: Atraumatic; oropharynx clear with moist mucous membranes and no mucosal ulcerations; normal hard and soft palate. Very poor dentition Neck: Trachea midline; supple, no thyromegaly or lymphadenopathy Cardiac: RRR, no murmur, +S1/S2 Pulmonary: Very technically challenging exam due to patient's size. Poor airflow throughout, however CTA bilaterally, no wheezes, rales or rhonchi, equal chest expansion Abdomen: soft, nontender, no guarding. No masses or hepatosplenomegaly MSK: ROM intact, no joint swelling noted Extremities: BLE nonpitting edema with evidence of long-term stasis, nontender calf, no cyanosis or clubbing Skin: Normal temperature, turgor; lower extremity skin is thickened and darkened with changes associated with long-term stasis. no rash, ulcers or subcutaneous nodules Neuro: moves all extremities, no focal deficits. Psych: Appropriate mood and behavior. A&Ox3 Internal Med - H&P Results - Labs CBC & Chem 7: 03/10/18 14:15 03/10/18 14:15 Labs: Short CBC 03/10/18 Range/Units 14:15 WBC 4.5 (4.3-11.1) K/mcL Hgb 11.5 (11.5-15.4) g/dL Hct 38.6 (35.3-44.9) % Plt Count 189 (140-400) K/mcL Neutrophils # 2.8 (1.6-8.9) K/mcL BMP 03/10/18 14:15 Sodium 136 Potassium 4.4 Chloride 101 Carbon Dioxide 24 BUN 31 H Creatinine 2.99 H Glucose 224 H Calcium 7.5 L Cardiac Enzymes 03/10/18 Range/Units 14:15 Troponin I < 0.03 (< 0.04) ng/mL - Impressions ITS Impressions Chest X-Ray 03/10/18 14:05 IMPRESSION: Left basilar opacities are most suspicious for atelectasis and small left pleural effusion. Infectious airspace disease such as aspiration or pneumonia could be present in the appropriate context. Background of stable cardiomegaly, central vascular congestion and borderline edema similar to the prior exam. D/ / Willie Anderson / Willie Anderson Interpreting Provider: Willie Anderson - Assessment and plan (1) Atypical chest pain Current Visit: Yes Status: Acute Assessment and plan: Acute atypical chest pain Pain starts in center of back between shoulder blades, radiates to center of chest Resolve spontaneously prior to arrival without assistance of medication EKG demonstrates sinus rhythm with poor voltage in precordial leads and possible ST segment changes in lead 3 however it appears consistent with prior EKG Initial troponin is negative, vitals appear stable on arrival. Patient oxy genating well. Chest x-ray demonstrated vascular congestion. Patient refused CTA Back pain is reproducible with palpation I suspect that this is probably musculoskeletal in nature Still, given the complaint we will consider ACS as well as vascular emergencies such as dissection Trend troponins Repeat EKG in the morning As the patient refused CTA, bilateral upper extremity blood pressures and pulses Monitor vitals closely Cardiac and oxygen monitoring (2) Heart failure with preserved ejection fraction Current Visit: Yes Status: Acute Assessment and plan: Acute on chronic CHF, mild Suspect mild exacerbation of diastolic CHF Echocardiogram 08/27 demonstrates EF 60% with hypertrophy of the basal septum Chest x-ray shows left basilar opacity consistent with left pleural effusion clinically insignificant pericardial effusion Patient does take home Lasix, attends hemodialysis for fluid removal but could not finish today We will use IV Lasix twice a day, consult nephrology to continue hemodialysis Continuous cardiac monitoring Qualifiers: Heart failure chronicity: acute on chronic Qualified Code(s): I50.33 - Acute on chronic diastolic (congestive) heart failure (3) COPD (chronic obstructive pulmonary disease) Current Visit: No Status: Chronic Assessment and plan: COPD without acute exacerbation Patient is not wheezing at this time, oxygenating appropriately on home O2 requirements She does have listed allergies ipratropium and albuterol Additionally, she did recently have COPD exacerbation We will give one final dose of prednisone as she was set to finish regimen tomorrow She has no white count, no wheezing on exam. Antibiotics are not indicated at this time Qualifiers: COPD type: unspecified COPD Qualified Code(s): J44.9 - Chronic obstructive pulmonary disease, unspecified (4) ESRD (end stage renal disease) Current Visit: Yes Status: Acute Assessment and plan: End-stage renal disease, hemodialysis Friday Patient was unable to tolerate HD today due to CP Biochemically stable, no evidence of fluid overload requiring emergent HD Consult to nephrology for management (5) Atrial fibrillation Current Visit: No Status: Chronic Assessment and plan: PAF, currently sinus rhythm Patient is anticoagulated on warfarin however subtherapeutic INR at 1.[address] patient on a heparin drip Qualifiers: Atrial fibrillation type: paroxysmal Qualified Code(s): I48.0 - Paroxysmal atrial fibrillation (6) Diarrhea Current Visit: Yes Status: Acute Assessment and plan: Patient claims to have 15 episodes of loose diarrhea over the past 2 days each She does have significant risk factors for infectious diarrhea due to recent antibiotic use I will test for C. difficile Qualifiers: Diarrhea type: presumed infectious Qualified Code(s): R19.7 - Diarrhea, unspecified (7) DM (diabetes mellitus), type 2 Current Visit: Yes Status: Chronic Assessment and plan: Poorly controlled diabetes mellitus type 2 Complicated with diabetic ulcers which are managed by Dr. 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 (8) DVT (deep venous thrombosis) Current Visit: No Status: Chronic Assessment and plan: History of DVT on warfarin Subtherapeutic INR 1.4, start heparin drip Pharmacy to dose warfarin for bridging Qualifiers: DVT location: lower extremity Affected thrombotic vein of extremity: unspecified vein of extremity Chronicity: unspecified Laterality: unspecified laterality Qualified Code(s): I82.409 - Acute embolism and thrombosis of unspecified deep veins of unspecified lower extremity (9) Essential hypertension Current Visit: Yes Status: Chronic Assessment and plan: Essential hypertension controlled on home meds Continue Toprol-XL, Imdur (10) Subtherapeutic international normalized ratio (INR) Current Visit: Yes Status: Acute Assessment and plan: Subtherapeutic INR as above, heparin drip Warfarin to be dosed per pharmacy (11) Morbid obesity with BMI of 50.0-59.9, adult Current Visit: No Status: Chronic (12) Ulcer of abdomen wall, limited to breakdown of skin Current Visit: Yes Status: Acute Assessment and plan: Diabetic ulcer of the left abdominal wall Management per Dr. Myrick in the outpatient setting From prior wound care note "She will have the area washed with soap and water daily. Apply santyl to 1/2 inch plain packing, packed the wound, cover with gauze and secured with tape. The dressing which change daily. - Time Spent With Patient Total time spent is greater than 50% in coordination of care (as documented) at patient's floor/unit and/or counseling patient: <Roxana Sanchez - Last Filed: 03/10/18 18:44> Date of Encounter: 03/10/18 Internal Medicine - H&P: HPI History of present illness: Ms. Mars is a 63 year old female All Systems PM: A 10-system review of systems was performed and is negative for pertinent findings except as documented above in the HPI. - Constitutional Vitals: Temp Pulse Resp BP Pulse Ox 98.1 F 76 15 164/89 93 03/10/18 13:45 03/10/18 15:48 03/10/18 16:25 03/10/18 16:25 03/10/18 15:48 Internal Med - H&P Results - Labs CBC & Chem 7: 03/10/18 14:15 03/10/18 14:15 Labs: Short CBC 03/10/18 Range/Units 14:15 WBC 4.5 (4.3-11.1) K/mcL Hgb 11.5 (11.5-15.4) g/dL Hct 38.6 (35.3-44.9) % Plt Count 189 (140-400) K/mcL Neutrophils # 2.8 (1.6-8.9) K/mcL BMP 03/10/18 14:15 Sodium 136 Potassium 4.4 Chloride 101 Carbon Dioxide 24 BUN 31 H Creatinine 2.99 H Glucose 224 H Calcium 7.5 L Cardiac Enzymes 03/10/18 Range/Units 14:15 Troponin I < 0.03 (< 0.04) ng/mL - Impressions ITS Impressions Chest X-Ray 03/10/18 14:05 IMPRESSION: Left basilar opacities are most suspicious for atelectasis and small left pleural effusion. Infectious airspace disease such as aspiration or pneumonia could be present in the appropriate context. Background of stable cardiomegaly, central vascular congestion and borderline edema similar to the prior exam. D/ / Willie Anderson / Willie Anderson Interpreting Provider: Willie Anderson - Time Spent With Patient Total time spent is greater than 50% in coordination of care (as documented) at patient's floor/unit and/or counseling patient: - Attending Attestation I examined this patient and my medical decision-making was reviewed with the Resident Physician Dr Hightower. I agree with the documented findings, disposition and treatment plan as described except to the extent set forth below. Ms Mars is being observed for chest pain and fluid overload. awake,eating dinner and comfortable. per pt chest and back pain are reproducible "whenever you touch me there" and she believes from coughing. no sob, fevers or chills. gen- alert, awake,appears stated age, morbidly obese eyes- pupils equal round cv- hard to discern given body habitus, reg rate and rhythm, normal s1,s2, no murmurs appreciated, 1+ pitting bl le edema lungs-+ wheezing, no rhonchi or crackles, normal resp effort on o2nc msk- pain to chest wall along sternocostal border with palpation and illicit same cp patient describing neuro- AAOx3, CN grossly intact Chest Pain- ED trop neg, and ED ekg without ischemic changes, she refused CTA chest in ED to eval for PE or dissection (though back pain is reproducible on palpation of paraspinal muscles as is chest pain), CXR with more likely fluid overload and less likely pna -trend trops, tele, monitor bps and o2 status-currently stable Fluid Overload on CXR- nephro following for HD, cont diuretic MSK back pain/chest pain- conservative treatment Subtherapeutic INR on coumadin for clot and afib hx- hep gtt to bridge to therapeutic further diagnoses and plan as noted by resident
[2018-03-10] MEDS ORDERED: Naloxone 0.4 MG/ML INJ IVP PRN (16:31)
[2018-03-10] MEDS ORDERED: D5% in Water 1,000 ML IVC PRN (17:40)
[2018-03-10] MEDS ORDERED: *HR* Dextrose 50 % in Water (Syg) 50 ML SYRINGE IVP PRN (17:40)
[2018-03-10] MEDS ORDERED: *HR* Heparin 5,000 UNIT/ML VIAL IVP PRN ×2 (17:40)
[2018-03-10] MEDS ORDERED: Dextrose Gel 15 GM/37.5 ML TUBE PO PRN ×2 (17:40)
[2018-03-10] MEDS ORDERED: *HR* Heparin 5,000 UNIT/ML VIAL IVP ONE (17:40)
[2018-03-10] MEDS ORDERED: Warfarin perPT PO PRN (18:00)
[2018-03-10 18:40] LABS: Hematocrit 36.9 % (35.3-44.9); Hemoglobin 11.1 g/dL (11.5-15.4); Mean Corpuscular HGB Conc 30.1 g/dL (31.6-35.5); Mean Corpuscular Volume 99.7 fL (83.0-100.0); Mean Platelet Volume 9.1 fL (9.4-12.4); Platelet Count 165 K/mcL (140-400)
[2018-03-10 18:43] LABS: INR 1.4; Prothrombin Time 15.5 Seconds (9.4-12.1)
[2018-03-10] MEDS ORDERED: *HR* Warfarin 5 MG TABLET PO ONE (19:30)
[2018-03-10] MEDS: Insulin LISPRO 300 UNITS/3 ML VIAL SQ SCH ×2 (21:08→21:29)
[2018-03-10] MEDS: clonazePAM 1 MG TABLET PO SCH (21:28)
[2018-03-10] MEDS: Calcium Acetate 667 MG CAPSULE PO SCH (21:28)
[2018-03-10] MEDS: Gabapentin 100 MG CAPSULE PO SCH (21:28)
[2018-03-10] MEDS: hydrOXYzine pamoate 25 MG CAPSULE PO SCH (21:28)
[2018-03-10] MEDS: Insulin DETEMIR 100 UNIT/ML X5UNITS SQ SCH (21:29)
[2018-03-10] MEDS: Nystatin POWDER 30 GM BOTTLE TP SCH (21:30)
[2018-03-10] MEDS: Furosemide 20 MG/2 ML VIAL IVP SCH (21:44)
[2018-03-10] MEDS: Heparin 25,000 UNIT/500 ML D5W 25,000 UNIT/500 ML BAG IVC SCH (21:46)
[2018-03-11 04:22] LABS: Basophils % 0.8 %; Eosinophils # 0.3 K/mcL (0.0-0.6); Eosinophils % 5.4 %; Hematocrit 35.2 % (35.3-44.9); Hemoglobin 10.5 g/dL (11.5-15.4); Immature Granulocytes % 1.4 % (0-4); Lymphocytes # 1.9 K/mcL (0.6-4.6); Mean Corpuscular HGB Conc 29.8 g/dL (31.6-35.5); Mean Corpuscular Hemoglobin 29.4 pg (28.0-33.3); Mean Corpuscular Volume 98.6 fL (83.0-100.0); Monocytes # 0.5 K/mcL (0.0-1.3); Monocytes % 9.7 %; Neutrophils # 2.4 K/mcL (1.6-8.9); Platelet Count 178 K/mcL (140-400); Red Blood Count 3.57 M/mcL (3.82-4.97); Segmented Neutrophils % 45.7 %
[2018-03-11 04:27] LABS: INR 1.6; Prothrombin Time 17.5 Seconds (9.4-12.1)
[2018-03-11 04:38] LABS: Albumin 3.3 g/dL (3.5-5.7); Bilirubin,Total 0.3 mg/dL (0.3-1.0); Calcium 7.3 mg/dL (8.6-10.3); Globulin 3.2 g/dL (2.4-3.5); Magnesium 1.5 mg/dL (1.6-2.6); Phosphorous 3.9 mg/dL (2.7-4.5); Potassium 4.6 mEq/L (3.5-5.1); Total Protein 6.5 g/dL (6.4-8.9)
[2018-03-11] MEDS ORDERED: *HR* Heparin 10,000 UNIT/10 ML VIAL IV PRN ×2 (07:16)
[2018-03-11] MEDS ORDERED: 0.9 % Sodium Chloride 250 ML IVC PRN (07:16)
[2018-03-11] MEDS ORDERED: 0.9 % Sodium Chloride 1,000 ML PRIME SCH (07:30)
[2018-03-11] MEDS: Gabapentin 100 MG CAPSULE PO SCH ×3 (07:48→21:08)
[2018-03-11] MEDS: hydrOXYzine pamoate 25 MG CAPSULE PO SCH (07:48)
[2018-03-11] MEDS: Metoprolol XL (24 HR) Succ 25 MG TAB.ER.24H PO SCH (07:48)
[2018-03-11] MEDS: Calcium Acetate 667 MG CAPSULE PO SCH ×4 (07:48→16:34)
[2018-03-11] MEDS ORDERED: 0.9 % Sodium Chloride 1,000 ML ONE (07:48)
[2018-03-11] MEDS: Isosorbide MONOnitrate (24 HR) 30 MG TAB.ER.24H PO SCH (07:48)
[2018-03-11] MEDS: Furosemide 20 MG/2 ML VIAL IVP SCH ×2 (07:49→16:34)
[2018-03-11] MEDS: Insulin LISPRO 300 UNITS/3 ML VIAL SQ SCH ×7 (07:49→21:10)
[2018-03-11] MEDS: amLODIPine 5 MG TABLET PO SCH (07:49)
[2018-03-11] MEDS: predniSONE 20 MG TABLET PO SCH (07:49)
[2018-03-11] MEDS: Nystatin POWDER 30 GM BOTTLE TP SCH ×2 (07:51→21:10)
[2018-03-11] MEDS ORDERED: hydrOXYzine pamoate 25 MG CAPSULE PO PRN (07:55)
--- NOTE | 2018-03-11 08:22 | Internal Med Progress Note ---
<DebbiemiraPedro rodas - Last Filed: 03/11/18 15:22> Hospitalist Progress Note - Encounter Date of Encounter: 03/11/18 - Exam Vitals: Temp Pulse Resp BP Pulse Ox 97.6 F 70 18 166/90 94 03/11/18 13:17 03/11/18 07:08 03/11/18 13:17 03/11/18 13:17 03/11/18 07:08 - Time Spent with Patient Total time spent is greater than 50% in coordination of care (as documented) at patient's floor/unit and/or counseling patient: Internal Medicine: Result - Labs CBC & Chem 7: 03/11/18 04:03 03/11/18 04:03 Labs: Short CBC 03/10/18 03/11/18 Range/Units 18:23 04:03 WBC 4.6 5.1 (4.3-11.1) K/mcL Hgb 11.1 L 10.5 L (11.5-15.4) g/dL Hct 36.9 35.2 L (35.3-44.9) % Plt Count 165 178 (140-400) K/mcL Neutrophils # 2.4 (1.6-8.9) K/mcL BMP 03/11/18 04:03 Sodium 138 Potassium 4.6 Chloride 104 Carbon Dioxide 24 BUN 35 H Creatinine 3.62 H Glucose 147 H Calcium 7.3 L Cardiac Enzymes 03/10/18 03/11/18 Range/Units 18:23 01:41 Troponin I < 0.03 < 0.03 (< 0.04) ng/mL Liver Function 03/11/18 Range/Units 04:03 Total Bilirubin 0.3 (0.3-1.0) mg/dL AST 39 (13-39) Units/L ALT 26 (7-52) Units/L Alkaline Phosphatase 130 H (34-104) Units/L Albumin 3.3 L (3.5-5.7) g/dL - ABG Interpretation ABG results: PT/INR, D-dimer PT 17.5 Seconds (9.4-12.1) H 03/11/18 04:03 Consult Discharge Plan - Plan Referrals: Mauro Dockery MD [Primary Care Provider] - 03/23/18 1:15 pm (Please follow up as schedule....) - Attending Attestation I examined this patient and my medical decision-making was reviewed with the Resident Physician. I agree with the documented findings, disposition and treatment plan as described except to the extent set forth below. Patient states she is chest pain-free. Denies fevers/chills, shortness of breath. No acute events. On physical exam she is resting comfortably, CVS: RRR, lungs; CTAB but breath sounds limited because of body habitus. Lower extremities 1+ bipedal pitting edema. VS: Reviewed, Labs: reviewed. INR 1.4 subtherapeutic. Atypical chest pain: neg troponin x3, EKG unchanged since prior studies. Will need to continue to bridge heparin to coumadin since patient does have history of DVT. Continue diuresis with IV Lasix, dialysis per Nephrology schedule. <Carolyn Ivey N - Last Filed: 03/11/18 20:35> Hospitalist Progress Note - Encounter Date of Encounter: 03/11/18 Time of Encounter: 08:22 - Subjective Interval History: Patient was seen and evaluated at the bedside. She complains of some generalized back pain, but denies any chest pain or discomfort. She voices that she will not be able to be discharged tomorrow due to the "subzero" temperatures that are expected, as these exacerbate her chronic breathing troubles. She denies any other acute complaints or concerns at this time. - Exam Vitals: Temp Pulse Resp BP Pulse Ox 97.7 F 70 18 126/79 94 03/11/18 07:08 03/11/18 07:08 03/11/18 07:08 03/11/18 07:08 03/11/18 07:08 Exam: Gen: Vitals noted. No acute distress. Patient is morbidly obese HENT: Atraumatic and normocephalic Cardiac: RRR, no murmur, +S1/S2 Pulmonary: Diffusely decreased breath sounds bilaterally without overt wheezes appreciated Abdomen: soft, nontender, no guarding. Extremities: BLE nonpitting edema with evidence of long-term stasis, nontender calf, no cyanosis or clubbing Neuro: moves all extremities, no focal deficits. patient is cooperative with exam and answers questions appropriately - Assessment and Plan (1) Subtherapeutic international normalized ratio (INR) Current Visit: Yes Status: Acute Assessment and Plan: Subtherapeutic INR, currently bridging with heparin gtt. Continue warfarin with pharmacy to dose. (2) Atypical chest pain Current Visit: Yes Status: Acute Assessment and Plan: Acute atypical chest pain on presentation. Patient currently reports no chest discomfort and troponins have remained negative. Likely secondary to musculoskeletal dysfunction. Will continue monitoring with repeat EKG if symptoms recur. (3) ESRD (end stage renal disease) Current Visit: Yes Status: Acute Assessment and Plan: End-stage renal disease, hemodialysis Friday. Patient underwent hemodialysis today without apparent issue. Appreciate nephrology assistance with management of this problem. (4) Heart failure with preserved ejection fraction Current Visit: Yes Status: Acute Assessment and Plan: Acute on chronic CHF, mild Suspect mild exacerbation of diastolic CHF Echocardiogram 08/27 demonstrates EF 60% with hypertrophy of the basal septum Chest x-ray shows left basilar opacity consistent with left pleural effusion cl inically insignificant pericardial effusion Continue BID lasix and continuous cardiac monitoring - Time Spent with Patient Total time spent is greater than 50% in coordination of care (as documented) at patient's floor/unit and/or counseling patient: Internal Medicine: Result - Labs CBC & Chem 7: 03/11/18 04:03 03/11/18 04:03 Labs: Short CBC 03/10/18 03/10/18 03/11/18 Range/Units 14:15 18:23 04:03 WBC 4.5 4.6 5.1 (4.3-11.1) K/mcL Hgb 11.5 11.1 L 10.5 L (11.5-15.4) g/dL Hct 38.6 36.9 35.2 L (35.3-44.9) % Plt Count 189 165 178 (140-400) K/mcL Neutrophils # 2.8 2.4 (1.6-8.9) K/mcL BMP 03/10/18 03/11/18 14:15 04:03 Sodium 136 138 Potassium 4.4 4.6 Chloride 101 104 Carbon Dioxide 24 24 BUN 31 H 35 H Creatinine 2.99 H 3.62 H Glucose 224 H 147 H Calcium 7.5 L 7.3 L Cardiac Enzymes 03/10/18 03/10/18 03/11/18 Range/Units 14:15 18:23 01:41 Troponin I < 0.03 < 0.03 < 0.03 (< 0.04) ng/mL Liver Function 03/11/18 Range/Units 04:03 Total Bilirubin 0.3 (0.3-1.0) mg/dL AST 39 (13-39) Units/L ALT 26 (7-52) Units/L Alkaline Phosphatase 130 H (34-104) Units/L Albumin 3.3 L (3.5-5.7) g/dL - ABG Interpretation ABG results: PT/INR, D-dimer PT 17.5 Seconds (9.4-12.1) H 03/11/18 04:03 - Impressions Impressions Chest X-Ray 03/10/18 14:05 IMPRESSION: Left basilar opacities are most suspicious for atelectasis and small left pleural effusion. Infectious airspace disease such as aspiration or pneumonia could be present in the appropriate context. Background of stable cardiomegaly, central vascular congestion and borderline edema similar to the prior exam. D/ / Willie Anderson / Willie Anderson Interpreting Provider: Willie Anderson <Carolyn Ivey N - Last Filed: 03/11/18 20:35> (4) Heart failure with preserved ejection fraction Qualifiers: Heart failure chronicity: acute on chronic Qualified Code(s): I50.33 - Acute on chronic diastolic (congestive) heart failure
[2018-03-11] MEDS: Heparin 25,000 UNIT/500 ML D5W 25,000 UNIT/500 ML BAG IVC SCH (11:02)
[2018-03-11] MEDS ORDERED: Warfarin perPT PO PRN (12:00)
--- NOTE | 2018-03-11 14:46 | Nephrology Consult Note ---
Date of Encounter: 03/11/18 Time of Encounter: 12:00 Assessment and Plan (1) ESRD (end stage renal disease) Current Visit: Yes Status: Acute Continue HD with UF as tolerated with goal approx. 3-4kg Plan to dialyze again tomorrow with UF as well Fluid restriction advised Renal diet advised (2) Atypical chest pain Current Visit: Yes Status: Acute Appears resolved. Per primary team (3) Ulcer of abdomen wall, limited to breakdown of skin Current Visit: Yes Status: Acute Wound care per primary team (4) Volume overload Current Visit: Yes Status: Acute As above Strict I/Os Qualifiers: Hypervolemia type: unspecified Qualified Code(s): E87.70 - Fluid overload, unspecified History of Present Illness - Reason for Consult Consult date: 03/11/18 end stage renal disease Requesting physician: Roni Hightower - History of Present Illness 63 y o female with PMH of DM, HTN, Afib on coumadin, DVTs, COPD, CHF and ESRD on HD presenting from dailysis yesterday midway through with back and chest pain. s/p hospital stay this past for rhinovirus PNA and COPD exacerbation with HD done on friday with UF of 4kg. Pt seen and examined on HD reportsing the reason here was because she keeps "holding fluids". I reminded her of her fluid restriction which she is apparently not keeping and also sodium restriction which she is also not adhering to. She denies any chest pain at present but does have a cough Past Med Surg Social Fam HX - Past Medical History Medical history: arthritis, CHF, COPD, DVT, diabetes, dialysis, GERD, hyperlipidemia, hypertension, migraine, osteoporosis, renal disease, thyroid disease, TIA Additional medical history: sleep apnea Psychiatric history: anxiety, depression - Past Surgical History Surgical History: appendectomy, hysterectomy, orthopedic, other, IVC filter Additional surgical history: carpal tunnel surgery left hand. perma cath change 2 to 3 weeks ago - Social History Smoking Status: Former smoker Smokeless Tobacco Status: No Alcohol use: occasionally Drug use: none - Family History Father Adopted: No Family Member Ethnicity: Non- Living Status: Hx Family Cardiac Disorders: Yes (CHF, HTN) Hx Family GI Disorders: No Hx Family Endocrine Disorder: Yes (DM) Hx Family Neurologic Disorders: Yes Brother Family Member Ethnicity: Non- Living Status: Hx Family Cardiac Disorders: Yes (CHF, CO) Sister Family Member Ethnicity: Non- Living Status: Hx Family Cardiac Disorders: Yes (CHF) Mother Adopted: No Family Member Ethnicity: Non- Living Status: Hx Family Cardiac Disorders: Yes (DVTs) Hx Family Cancer: Yes (Metastatic) Hx Family GI Disorders: No Hx Family Endocrine Disorder: Yes (DM) Medications and Allergies Meclizine [Antivert] 25 mg PO TID PRN 09/12/14 [History] DiphenhydraMINE [Benadryl] 25 mg PO TID PRN 03/22/15 [History] Exenatide Microspheres [Bydureon Pen] 2 mg SQ WE 03/22/15 [History] Lidocaine Patch [Lidoderm 5% patch] 1 patch TP DAILY 03/22/15 [History] Nitroglycerin [Nitrostat] 0.4 mg SL Q5M PRN 03/22/15 [History] Promethazine [Phenergan] 25 mg PO TID PRN 03/22/15 [History] clonazePAM [Klonopin] 1 mg PO HS 03/22/15 [History] Albuterol Neb [AccuNeb] 1.25 mg IH QID 05/06/16 [History] Nystatin POWDER [Nystop] 1 appl TP BID 05/06/16 [History] Acetaminophen [Tylenol] 650 mg PO Q4-6H PRN 11/10/16 [History] Omeprazole [PriLOSEC] 40 mg PO DAILY@0730 11/10/16 [History] Gabapentin [Neurontin] 100 mg PO TID #90 capsule 11/27/16 [Rx] Albuterol Sulfate [Ventolin Hfa] 2 puff IH Q4H PRN 08/12/17 [History] Calcium Acetate [Phos-LO] 1,334 mg PO TIDWM 08/12/17 [History] Cyclobenzaprine [Flexeril] 10 mg PO TID PRN 08/12/17 [History] Docusate [Colace] 100 mg PO TID 08/12/17 [History] Doxepin HCl 50 mg PO HS 08/12/17 [History] Furosemide [Lasix] 40 mg PO QAM 08/12/17 [History] Insulin ASPART [Novolog Flexpen] 32 unit SQ TIDWM 08/12/17 [History] Levothyroxine Sodium [Levoxyl] 250 mcg PO DAILY@0630 08/12/17 [History] Metoprolol XL (24 HR) Succ [Toprol Xl] 25 mg PO DAILY 08/12/17 [History] Warfarin [Coumadin] 5 mg PO AD 08/12/17 [History] hydrOXYzine HCl [Hydroxyzine HCl] 25 mg PO TID PRN 08/12/17 [History] Ergocalciferol (VITAMIN D2) [Vitamin D2] 50,000 unit PO QWEEK 09/23/17 [History] Furosemide [Lasix] 20 mg PO 1300 09/23/17 [History] Furosemide [Lasix] 40 mg PO QPM 09/23/17 [History] Amlodipine Besylate 10 mg PO DAILY 12/26/17 [History] Isosorbide MONOnitrate [Isosorbide Mononitrate ER] 30 mg PO DAILY 12/26/17 [History] Rosuvastatin Calcium [Crestor] 10 mg PO QPM 12/26/17 [History] Collagenase Oint [Santyl] 90 gm TP DAILY #1 oint...g. 12/28/17 [Rx] Insulin Glargine,Hum.rec.anlog [Lantus Solostar] 30 unit SQ BID #0 12/29/17 [Rx] Allergy/AdvReac Type Severity Reaction Status Date / Time aspirin Allergy Hives Verified 10/09/17 06:39 cephalexin [From Keflex] Allergy Difficulty Verified 10/09/17 06:39 Breathing Cortisone Allergy See Verified 10/09/17 06:39 Comments ibuprofen Allergy Hives Verified 10/09/17 06:39 Iodinated Contrast- Oral and Allergy See Verified 10/09/17 06:39 IV Dye Comments [Iodinated Contrast Media - IV Dye] lidocaine [From Xylocaine] Allergy See Verified 10/09/17 06:39 Comments loratadine [From Claritin] Allergy Hives Verified 10/09/17 06:39 Penicillins Allergy See Verified 10/09/17 06:39 Comments Procaine [From Novocain] Allergy See Verified 10/09/17 06:39 Comments propoxyphene [From Darvon] Allergy See Verified 10/09/17 06:39 Comments pseudoephedrine Allergy Hives Verified 10/09/17 06:39 [From Sudafed] ropinirole [From Requip] Allergy See Verified 10/09/17 06:39 Comments acetaminophen AdvReac See Verified 10/09/17 06:39 Comments albuterol AdvReac Shakiness Verified 10/09/17 06:39 calcium AdvReac See Verified 10/09/17 06:39 Comments ceftriaxone [From Rocephin] AdvReac See Verified 10/09/17 06:39 Comments clindamycin AdvReac Hypotension Verified 10/09/17 06:39 codeine AdvReac Hypertensio Verified 10/09/17 06:39 n doxycycline AdvReac See Verified 10/09/17 06:39 Comments famotidine AdvReac See Verified 10/09/17 06:39 Comments hydrocodone AdvReac See Verified 10/09/17 06:39 Comments hydrocortisone AdvReac Hypertensio Verified 10/09/17 06:39 n ipratropium AdvReac See Verified 10/09/17 06:39 Comments methylprednisolone AdvReac Hypertensio Verified 10/09/17 06:39 [From Solu-Medrol] n Neomycin AdvReac See Verified 10/09/17 06:39 Comments NSAIDS (Non-Steroidal AdvReac See Verified 10/09/17 06:39 Anti-Inflamma Comments prednisone AdvReac Hypertensio Verified 10/09/17 06:39 n Sulfa (Sulfonamide AdvReac See Verified 10/09/17 06:39 Antibiotics) Comments terfenadine AdvReac See Verified 10/09/17 06:39 Comments tramadol AdvReac See Verified 10/09/17 06:39 Comments Review of Systems All Systems review (narrative): The rest of the systems are negative Constitutional: fatigue (admits) Cardiovascular: chest pain (resolved), leg edema (admits) Exam - Vital Signs Vital signs: Initial Vital Signs Temp Pulse Resp BP Pulse Ox 98.1 F 77 16 146/90 95 03/10/18 13:45 03/10/18 13:45 03/10/18 13:45 03/10/18 13:45 03/10/18 13:45 Vital Signs - Last 8 Hours Temp Pulse Resp BP Pulse Ox 03/11/18 13:17 97.6 F 18 166/90 03/11/18 13:00 138/73 03/11/18 12:45 151/74 03/11/18 12:30 154/78 03/11/18 12:15 148/72 03/11/18 12:00 150/70 03/11/18 11:45 138/72 03/11/18 11:30 144/85 03/11/18 11:15 159/74 03/11/18 11:00 124/54 03/11/18 10:45 142/76 03/11/18 10:30 144/70 03/11/18 10:15 159/71 03/11/18 10:00 97.2 F L 18 132/87 03/11/18 07:08 97.7 F 70 18 126/79 94 Intake and Output 03/10/18 03/11/18 03/11/18 23:59 07:59 15:59 Intake Total 302 / 302 798 / 798 Output Total 0 / 0 4600 / 4600 Balance 302 / 302 -3802 / -3802 Intake: IV Fluids 302 / 302 198 / 198 Heparin 25,000 UNIT/500 ML D5W 302 / 302 198 / 198 25,000 unit In 500 ml @ 14 UNIT /KG/HR 44.071 mls/hr IVC . [id number] [facility] Rx#:[id number] Oral 0 / 0 0 / 0 Intake, Rinseback and Flushes 600 / 600 Output: Urine 0 / 0 0 / 0 Total Dialysis (HD) Output 4600 / 4600 Other: Blood Glucose* 185 103 123 Hemodialysis Net Fluid Removed 4000 (mL) - General Appearance General appearance: chronically ill (NAD) EENT: ATNC, mucous membranes moist Neck: no JVD, supple Respiratory: course breath sounds Cardiology: edema (LE bilat), normal S1, normal S2 - Dialysis Access Dialysis Vascular Access: Venous Catheter Gastrointestinal: no tenderness, no guarding, obese Integumentary: warm and dry Neurologic: no focal deficit Musculoskeletal: no deformities Psychiatric: mood/affect appropriate, cooperative Results - Lab Results 03/11/18 04:03 03/11/18 04:03 Most recent lab results Calcium 7.3 mg/dL (8.6-10.3) L 03/11/18 04:03 Phosphorus 3.9 mg/dL (2.7-4.5) 03/11/18 04:03 Magnesium 1.5 mg/dL (1.6-2.6) L 03/11/18 04:03 Consult Discharge Plan - Plan Referrals: Mauro Dockery MD [Primary Care Provider] - 03/23/18 1:15 pm (Please follow up as schedule....)
--- NOTE | 2018-03-11 15:48 | Electrocardiograph Report ---
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
[2018-03-11] MEDS ORDERED: *HR* Warfarin 5 MG TABLET PO ONE (18:00)
[2018-03-11] MEDS: Insulin DETEMIR 100 UNIT/ML X5UNITS SQ SCH (21:09)
[2018-03-11] MEDS: clonazePAM 1 MG TABLET PO SCH (21:09)
[2018-03-12] MEDS: Heparin 25,000 UNIT/500 ML D5W 25,000 UNIT/500 ML BAG IVC SCH ×2 (06:23→22:29)
[2018-03-12] MEDS ORDERED: 0.9 % Sodium Chloride 2,000 ML ONE (06:23)
[2018-03-12 06:47] LABS: Basophils % 0.6 %; Eosinophils # 0.1 K/mcL (0.0-0.6); Eosinophils % 1.1 %; Hematocrit 33.5 % (35.3-44.9); Hemoglobin 9.8 g/dL (11.5-15.4); Immature Granulocytes % 2.6 % (0-4); Lymphocytes # 1.7 K/mcL (0.6-4.6); Lymphocytes % 31.8 %; Mean Corpuscular HGB Conc 29.3 g/dL (31.6-35.5); Mean Corpuscular Hemoglobin 29.5 pg (28.0-33.3); Mean Corpuscular Volume 100.9 fL (83.0-100.0); Mean Platelet Volume 9.3 fL (9.4-12.4); Monocytes # 0.4 K/mcL (0.0-1.3); Monocytes % 8.2 %; Nucleated Red Blood Cells 0.4 /100 WBC (0); Platelet Count 154 K/mcL (140-400); Red Blood Count 3.32 M/mcL (3.82-4.97); Red Cell Distribution Width 18.9 % (11.5-14.5); Segmented Neutrophils % 55.7 %
[2018-03-12 07:06] LABS: Albumin 3.1 g/dL (3.5-5.7); Albumin/Globulin Ratio 1.1 (1.1-2.2); Bilirubin,Total 0.3 mg/dL (0.3-1.0); Calcium 7.2 mg/dL (8.6-10.3); Globulin 2.9 g/dL (2.4-3.5); Potassium 4.2 mEq/L (3.5-5.1)
[2018-03-12 07:41] LABS: INR 1.4; Prothrombin Time 16.1 Seconds (9.4-12.1)
--- NOTE | 2018-03-12 07:53 | Internal Med Progress Note ---
<Carolyn Ivey N - Last Filed: 03/12/18 16:05> Hospitalist Progress Note - Encounter Date of Encounter: 03/12/18 Time of Encounter: 07:53 - Subjective Interval History: Patient was seen and evaluated at the bedside. She reports some continued cough and sputum production secondary to recent respiratory viral illness, which she states has been alleviated at home with use of Tessalon perles. She reports that she is going to dialysis again today, as it is her normal schedule. She denies any other acute complaints or concerns at this time. - Exam Vitals: Temp Pulse Resp BP Pulse Ox 98.1 F 64 18 147/80 97 03/12/18 07:20 03/12/18 07:20 03/12/18 07:20 03/12/18 07:20 03/12/18 07:20 Exam: GENERAL: Vitals noted. No acute distress. Patient is morbidly obese HEENT: Atraumatic and normocephalic CARDIOVASCULAR: RRR, no murmur, +S1/S2 RESPIRATORY: Diffusely decreased breath sounds bilaterally without overt wheezes appreciated EXTREMITIES: BLE nonpitting edema with evidence of long-term stasis, nontender calf, no cyanosis or clubbing NEUROLOGIC: moves all extremities, no focal deficits. patient is cooperative with exam and answers questions appropriately - Assessment and Plan (1) Subtherapeutic international normalized ratio (INR) Current Visit: Yes Status: Acute Assessment and Plan: Subtherapeutic INR, currently bridging with heparin gtt. Continue warfarin with pharmacy to dose. (2) Atypical chest pain Current Visit: Yes Status: Resolved Assessment and Plan: Acute atypical chest pain on presentation. Patient currently reports no chest discomfort and troponins have remained negative. Likely secondary to musculoskeletal dysfunction. Will continue monitoring with repeat EKG if symptoms recur. (3) ESRD (end stage renal disease) Current Visit: Yes Status: Acute Assessment and Plan: End-stage renal disease, hemodialysis Friday. Patient underwent hemodialysis again today. Appreciate nephrology assistance with management of this problem. (4) Heart failure with preserved ejection fraction Current Visit: Yes Status: Acute Assessment and Plan: Acute on chronic CHF, mild Suspect mild exacerbation of diastolic CHF Echocardiogram 08/27 demonstrates EF 60% with hypertrophy of the basal septum Chest x-ray shows left basilar opacity consistent with left pleural effusion clinically insignificant pericardial effusion Continue BID lasix and continuous cardiac monitoring (5) Hypocalcemia Current Visit: Yes Status: Acute Assessment and Plan: Discussed with nephrology, who recommended against IV replacement. Will administer 1000mg calcium carbonate TID between meals and continue to monitor. DVT Prophylaxis: - On heparin gtt and coumadin - Time Spent with Patient Total time spent is greater than 50% in coordination of care (as documented) at patient's floor/unit and/or counseling patient: Internal Medicine: Result - Labs CBC & Chem 7: 03/12/18 06:30 03/12/18 06:30 Labs: Short CBC 03/12/18 Range/Units 06:30 WBC 5.4 (4.3-11.1) K/mcL Hgb 9.8 L (11.5-15.4) g/dL Hct 33.5 L (35.3-44.9) % Plt Count 154 (140-400) K/mcL Neutrophils # 3.0 (1.6-8.9) K/mcL BMP 03/12/18 06:30 Sodium 136 Potassium 4.2 Chloride 103 Carbon Dioxide 25 BUN 29 H Creatinine 3.13 H Glucose 206 H Calcium 7.2 L Liver Function 03/12/18 Range/Units 06:30 Total Bilirubin 0.3 (0.3-1.0) mg/dL AST 23 (13-39) Units/L ALT 21 (7-52) Units/L Alkaline Phosphatase 121 H (34-104) Units/L Albumin 3.1 L (3.5-5.7) g/dL - ABG Interpretation ABG results: PT/INR, D-dimer PT 16.1 Seconds (9.4-12.1) H 03/12/18 06:30 Consult Discharge Plan - Plan Referrals: Mauro Dockery MD [Primary Care Provider] - 03/23/18 1:15 pm (Please follow up as schedule....) <Pedro El - Last Filed: 03/12/18 21:07> Hospitalist Progress Note - Encounter Date of Encounter: 03/12/18 - Exam Vitals: Temp Pulse Resp BP Pulse Ox 98.1 F 84 17 134/46 97 03/12/18 20:29 03/12/18 20:29 03/12/18 20:29 03/12/18 20:29 03/12/18 20:29 - Assessment and Plan (1) Subtherapeutic international normalized ratio (INR) Current Visit: Yes Status: Acute (2) Atypical chest pain Current Visit: Yes Status: Resolved (3) ESRD (end stage renal disease) Current Visit: Yes Status: Acute (4) Heart failure with preserved ejection fraction Current Visit: Yes Status: Acute (5) Hypocalcemia Current Visit: Yes Status: Acute - Time Spent with Patient Total time spent is greater than 50% in coordination of care (as documented) at patient's floor/unit and/or counseling patient: Internal Medicine: Result - Labs CBC & Chem 7: 03/12/18 06:30 03/12/18 06:30 Labs: Short CBC 03/12/18 Range/Units 06:30 WBC 5.4 (4.3-11.1) K/mcL Hgb 9.8 L (11.5-15.4) g/dL Hct 33.5 L (35.3-44.9) % Plt Count 154 (140-400) K/mcL Neutrophils # 3.0 (1.6-8.9) K/mcL BMP 03/12/18 06:30 Sodium 136 Potassium 4.2 Chloride 103 Carbon Dioxide 25 BUN 29 H Creatinine 3.13 H Glucose 206 H Calcium 7.2 L Liver Function 03/12/18 Range/Units 06:30 Total Bilirubin 0.3 (0.3-1.0) mg/dL AST 23 (13-39) Units/L ALT 21 (7-52) Units/L Alkaline Phosphatase 121 H (34-104) Units/L Albumin 3.1 L (3.5-5.7) g/dL - ABG Interpretation ABG results: PT/INR, D-dimer PT 16.1 Seconds (9.4-12.1) H 03/12/18 06:30 - Attending Attestation I examined this patient and my medical decision-making was reviewed with the Res ident Physician. I agree with the documented findings, disposition and treatment plan as described except to the extent set forth below. <Carolyn Ivey - Last Filed: 03/12/18 16:05> (4) Heart failure with preserved ejection fraction Qualifiers: Heart failure chronicity: acute on chronic Qualified Code(s): I50.33 - Acute on chronic diastolic (congestive) heart failure <Pedro El - Last Filed: 03/12/18 21:07> (4) Heart failure with preserved ejection fraction Qualifiers: Heart failure chronicity: acute on chronic Qualified Code(s): I50.33 - Acute on chronic diastolic (congestive) heart failure
[2018-03-12 08:23] LABS: Magnesium 1.5 mg/dL (1.6-2.6)
--- NOTE | 2018-03-12 08:49 | Nephrology Progress Note ---
<Precious Page Katherine - Last Filed: 03/12/18 08:50> Date of Encounter: 03/12/18 Time of Encounter: 08:46 - Assessment and Plan (1) Volume overload Current Visit: Yes Status: Acute HD today Will challenge as patient tolerates Patient is grossly non-compliant (see below) Qualifiers: Hypervolemia type: unspecified Qualified Code(s): E87.70 - Fluid overload, unspecified (2) ESRD (end stage renal disease) Current Visit: Yes Status: Acute Plan for HD today Patient is grossly non-compliant with HD treatments, misses her outpatient HD frequently Patient is grossly non-compliant with renal diet and fluid restriction Avoid nephrotoxins if possible (3) Atypical chest pain Current Visit: Yes Status: Resolved Appears resolved. Per primary team (4) Ulcer of abdomen wall, limited to breakdown of skin Current Visit: Yes Status: Acute Wound care per primary team Subjective Principal diagnosis: ESRD on dialysis, volume overload Interval history: Patient seen and examined. States she is feeling pretty good this morning. Objective - Vital Signs Vital signs: Vital Signs Temp Pulse Resp BP Pulse Ox 03/12/18 07:20 98.1 F 64 18 147/80 97 03/12/18 03:49 97.5 F L 66 17 145/78 90 03/11/18 22:47 98.1 F 68 16 148/76 95 03/11/18 21:23 98 03/11/18 19:37 98.3 F 76 16 101/67 95 03/11/18 16:33 98.0 F 71 18 138/61 98 03/11/18 13:17 97.6 F 18 166/90 03/11/18 13:00 138/73 03/11/18 12:45 151/74 03/11/18 12:30 154/78 03/11/18 12:15 148/72 03/11/18 12:00 150/70 03/11/18 11:45 138/72 03/11/18 11:30 144/85 03/11/18 11:15 159/74 03/11/18 11:00 124/54 03/11/18 10:45 142/76 03/11/18 10:30 144/70 03/11/18 10:15 159/71 03/11/18 10:00 97.2 F L 18 132/87 Intake and Output 03/11/18 03/12/18 03/12/18 23:59 07:59 15:59 Intake Total 0 / 0 500 / 500 Balance 0 / 0 500 / 500 Intake: IV Fluids 0 / 0 500 / 500 Heparin 25,000 UNIT/500 ML D5W 0 / 0 500 / 500 25,000 unit In 500 ml @ 14 UNIT /KG/HR 44.071 mls/hr IVC . [id number] [facility] Rx#:[id number] Other: Stool Size Large Stool Consistency soft Stool Color Brown # Voids 1 Blood Glucose* 196 - General Appearance General appearance: Present: obese EENT: Present: ATNC, mucous membranes moist, hearing intact, vision intact Neck: Present: supple Respiratory: Present: clear Cardiology: Present: edema, normal S1, normal S2 Dialysis Vascular Access: Venous Catheter Gastrointestinal: Present: no tenderness, no guarding, obese Integumentary: Present: warm and dry Neurologic: Present: alert and oriented x3 Psychiatric: Present: mood/affect appropriate, cooperative - Lab 03/12/18 06:30 03/12/18 06:30 Most recent lab results Calcium 7.2 mg/dL (8.6-10.3) L 03/12/18 06:30 Phosphorus 3.9 mg/dL (2.7-4.5) 03/11/18 04:03 Magnesium 1.5 mg/dL (1.6-2.6) L 03/12/18 06:30 Consult Discharge Plan - Plan Additional Instructions: Follow up with your PCP in 3-5 days. Follow up with nephrology and dialysis as planned. Continue taking home medications, except warfarin and prior antibiotics. Continue taking eliquis 2.5mg twice daily. Return to the emergency department if symptoms recur or if new complaints or concerns arise. Referrals: Mauro Dockery MD [Primary Care Provider] - 03/23/18 1:15 pm (Please follow up as schedule....) Prescriptions: RX: Apixaban [Eliquis] 2.5 mg PO BID #60 tablet RX: Calcium Carbonate [Tums] 1,000 mg PO TID 14 Days tab.chew <Ovidio Pearl - Last Filed: 03/13/18 14:37> Date of Encounter: 03/12/18 - Assessment and Plan (1) Atypical chest pain Current Visit: Yes Status: Resolved (2) Ulcer of abdomen wall, limited to breakdown of skin Current Visit: Yes Status: Acute (3) ESRD (end stage renal disease) Current Visit: Yes Status: Acute (4) Volume overload Current Visit: Yes Status: Acute Qualifiers: Hypervolemia type: unspecified Qualified Code(s): E87.70 - Fluid overload, unspecified Objective - Vital Signs Vital signs: Vital Signs Temp Pulse Resp BP Pulse Ox 03/13/18 11:43 98.4 F 73 20 114/72 98 03/13/18 07:11 97.8 F 74 20 172/82 99 03/13/18 03:58 97.8 F 78 18 176/84 97 03/12/18 23:50 97.9 F 81 17 132/79 98 03/12/18 22:44 98 03/12/18 20:29 98.1 F 84 17 134/46 97 03/12/18 15:59 98.6 F 77 18 136/73 96 Intake and Output 03/12/18 03/13/18 03/13/18 23:59 07:59 15:59 Intake Total 500 / 500 84 / 84 266 / 266 Balance 500 / 500 84 / 84 266 / 266 Intake: IV Fluids 500 / 500 84 / 84 266 / 266 Heparin 25,000 UNIT/500 ML D5W 500 / 500 84 / 84 266 / 266 25,000 unit In 500 ml @ 14 UNIT /KG/HR 44.071 mls/hr IVC . [id number] [facility] Rx#:[id number] Other: Stool Size Small Stool Consistency soft Stool Color Brown # Voids 1 # Bowel Movements 1 Weight 165 kg Blood Glucose* 286 155 124 Patient Weight 03/13/18 23:59 Weight 165 kg - Lab 03/13/18 00:50 03/13/18 00:50 Most recent lab results Calcium 8.4 mg/dL (8.6-10.3) L 03/13/18 00:50 Phosphorus 3.9 mg/dL (2.7-4.5) 03/11/18 04:03 Magnesium 1.5 mg/dL (1.6-2.6) L 03/12/18 06:30 - Attending Attestation I examined this patient and my medical decision-making was reviewed with the Resident Physician/HUMAN FACTORS ADVISOR LEAD. I agree with the documented findings, disposition and treatment plan as described except to the extent set forth below. Pt seen and examined feeling alittle better after HD yesterday now on HD again today for more UF. Exam shows obese female NAD, clear lungs with slightly decreased BS bases bilat, heart with S1S2 and LE edema slightly improved. Continue HD with UF as tolerated. Fluid restriction advised. Adherence to renal diet, meds, fluid restriction and treatments outpatient advised.
[2018-03-12] MEDS: Insulin LISPRO 300 UNITS/3 ML VIAL SQ SCH ×7 (08:51→22:29)
[2018-03-12] MEDS: Gabapentin 100 MG CAPSULE PO SCH ×3 (08:51→22:28)
[2018-03-12] MEDS: predniSONE 20 MG TABLET PO SCH (08:51)
[2018-03-12] MEDS: amLODIPine 5 MG TABLET PO SCH (08:53)
[2018-03-12] MEDS: Isosorbide MONOnitrate (24 HR) 30 MG TAB.ER.24H PO SCH (08:53)
[2018-03-12] MEDS: Furosemide 20 MG/2 ML VIAL IVP SCH (08:53)
[2018-03-12] MEDS: Nystatin POWDER 30 GM BOTTLE TP SCH ×2 (08:53→22:30)
[2018-03-12] MEDS: Calcium Acetate 667 MG CAPSULE PO SCH ×3 (08:53→17:12)
[2018-03-12] MEDS: Metoprolol XL (24 HR) Succ 25 MG TAB.ER.24H PO SCH (08:53)
[2018-03-12] MEDS ORDERED: 0.9 % Sodium Chloride 250 ML IVC PRN (09:11)
[2018-03-12] MEDS ORDERED: *HR* Heparin 10,000 UNIT/10 ML VIAL IV PRN (09:11)
[2018-03-12 10:21] LABS: VBG Ionized Calcium 1.03 mmol/L (1.15-1.35)
--- NOTE | 2018-03-12 10:53 | Electrocardiograph Report ---
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
[2018-03-12] MEDS: Furosemide 20 MG TABLET PO SCH (12:35)
[2018-03-12] MEDS ORDERED: Menthol 9.1 MG LOZENGE PO PRN (13:57)
[2018-03-12] MEDS: Furosemide 40 MG TABLET PO SCH (17:10)
[2018-03-12] MEDS ORDERED: *HR* Warfarin 7.5 MG TABLET PO ONE (18:00)
[2018-03-12] MEDS: Benzonatate 100 MG CAPSULE PO PRN (22:28)
[2018-03-12] MEDS: clonazePAM 1 MG TABLET PO SCH (22:28)
[2018-03-12] MEDS: Insulin DETEMIR 100 UNIT/ML X5UNITS SQ SCH (22:28)
[2018-03-13 01:05] LABS: Basophils % 0.4 %; Eosinophils % 0.1 %; Hematocrit 36.9 % (35.3-44.9); Hemoglobin 11.1 g/dL (11.5-15.4); Immature Granulocytes % 2.7 % (0-4); Lymphocytes # 1.5 K/mcL (0.6-4.6); Mean Corpuscular HGB Conc 30.1 g/dL (31.6-35.5); Mean Corpuscular Hemoglobin 29.8 pg (28.0-33.3); Mean Corpuscular Volume 99.2 fL (83.0-100.0); Mean Platelet Volume 9.7 fL (9.4-12.4); Monocytes # 0.4 K/mcL (0.0-1.3); Monocytes % 6.1 %; Neutrophils # 4.6 K/mcL (1.6-8.9); Nucleated Red Blood Cells 0.3 /100 WBC (0); Platelet Count 179 K/mcL (140-400); Red Blood Count 3.72 M/mcL (3.82-4.97); Red Cell Distribution Width 19.3 % (11.5-14.5); Segmented Neutrophils % 68.7 %
[2018-03-13 01:16] LABS: INR 1.3; Prothrombin Time 14.6 Seconds (9.4-12.1)
[2018-03-13 01:24] LABS: Calcium 8.4 mg/dL (8.6-10.3); Potassium 5.1 mEq/L (3.5-5.1)
[2018-03-13] MEDS: Benzonatate 100 MG CAPSULE PO PRN (06:27)
[2018-03-13] MEDS ORDERED: *HR* Heparin 10,000 UNIT/10 ML VIAL IV PRN ×2 (07:50)
[2018-03-13] MEDS ORDERED: 0.9 % Sodium Chloride 250 ML IVC PRN (07:50)
[2018-03-13] MEDS ORDERED: 0.9 % Sodium Chloride 1,000 ML PRIME SCH (08:00)
--- NOTE | 2018-03-13 08:32 | Internal Med Progress Note ---
Hospitalist Progress Note - Encounter Date of Encounter: 03/13/18 Time of Encounter: 08:32 - Subjective Interval History: Patient was seen and evaluated at the bedside. She reports some continued cough and sputum production secondary to recent respiratory viral illness, which she states has been alleviated at home with use of Tessalon perles. She reports that she is going to dialysis again today, as it is her normal schedule. She denies any other acute complaints or concerns at this time. - Exam Vitals: Temp Pulse Resp BP Pulse Ox 97.8 F 74 20 172/82 99 03/13/18 07:11 03/13/18 07:11 03/13/18 07:11 03/13/18 07:11 03/13/18 07:11 - Assessment and Plan (1) Subtherapeutic international normalized ratio (INR) Current Visit: Yes Status: Acute (2) Hypocalcemia Current Visit: Yes Status: Acute (3) Atypical chest pain Current Visit: Yes Status: Resolved (4) ESRD (end stage renal disease) Current Visit: Yes Status: Acute (5) Heart failure with preserved ejection fraction Current Visit: Yes Status: Acute - Time Spent with Patient Total time spent is greater than 50% in coordination of care (as documented) at patient's floor/unit and/or counseling patient: Internal Medicine: Result - Labs CBC & Chem 7: 03/13/18 00:50 03/13/18 00:50 Labs: Short CBC 03/13/18 Range/Units 00:50 WBC 6.7 (4.3-11.1) K/mcL Hgb 11.1 L (11.5-15.4) g/dL Hct 36.9 (35.3-44.9) % Plt Count 179 (140-400) K/mcL Neutrophils # 4.6 (1.6-8.9) K/mcL BMP 03/13/18 00:50 Sodium 133 L Potassium 5.1 Chloride 99 Carbon Dioxide 25 BUN 37 H Creatinine 3.61 H Glucose 287 H Calcium 8.4 L - ABG Interpretation ABG results: PT/INR, D-dimer PT 14.6 Seconds (9.4-12.1) H 03/13/18 00:50 Consult Discharge Plan - Plan Referrals: Mauro Dockery MD [Primary Care Provider] - 03/23/18 1:15 pm (Please follow up as schedule....) (5) Heart failure with preserved ejection fraction Qualifiers: Heart failure chronicity: acute on chronic Qualified Code(s): I50.33 - Acute on chronic diastolic (congestive) heart failure
[2018-03-13] MEDS: Calcium Acetate 667 MG CAPSULE PO SCH ×2 (08:38→12:50)
[2018-03-13] MEDS: Gabapentin 100 MG CAPSULE PO SCH (08:38)
[2018-03-13] MEDS: Metoprolol XL (24 HR) Succ 25 MG TAB.ER.24H PO SCH (08:38)
[2018-03-13] MEDS: amLODIPine 5 MG TABLET PO SCH (08:39)
[2018-03-13] MEDS: Isosorbide MONOnitrate (24 HR) 30 MG TAB.ER.24H PO SCH (08:40)
[2018-03-13] MEDS: Furosemide 40 MG TABLET PO SCH (08:40)
[2018-03-13] MEDS: Insulin LISPRO 300 UNITS/3 ML VIAL SQ SCH ×4 (08:42→12:50)
[2018-03-13] MEDS ORDERED: 0.9 % Sodium Chloride 2,000 ML ONE (08:58)
--- NOTE | 2018-03-13 09:30 | Nephrology Progress Note ---
Addendum entered and electronically signed by Will Del Castillo, 03/13/18 15:16: I have personally performed a face to face evaluation on this patient. I have reviewed and agree with the care plan. History and Exam by me shows: She refused dialysis today, but I recommend she resume her typical HD schedule (TTS). Counseled her to improve her compliance with going to all HD treatments, and her diet plus modifying lifestyle. Original Note: Date of Encounter: 03/13/18 Time of Encounter: 09:27 - Assessment and Plan (1) ESRD (end stage renal disease) Current Visit: Yes Status: Acute HD completed yesterday 03/12/18-without complication. Plan for UF today, however patient states she would rather not do it today. Encouraged compliance. Patient is grossly non-compliant with HD treatments, misses her outpatient HD frequently Patient is grossly non-compliant with renal diet and fluid restriction Avoid nephrotoxins if possible (2) Atypical chest pain Current Visit: Yes Status: Resolved Appears resolved. Per primary team (3) Ulcer of abdomen wall, limited to breakdown of skin Current Visit: Yes Status: Acute Wound care per primary team (4) Volume overload Current Visit: Yes Status: Acute UFtoday HD tomorrow in house or outpatient. Will challenge as patient tolerates Patient is grossly non-compliant (see above) Qualifiers: Hypervolemia type: unspecified Qualified Code(s): E87.70 - Fluid overload, unspecified Subjective Principal diagnosis: ESRD on dialysis, volume overload Interval history: Pt seen and examined, is feeling better today. Denies shortness of breath or chest pain. Denies nausea, vomiting, diarrhea. No acute events overnight. Objective - Vital Signs Vital signs: Vital Signs Temp Pulse Resp BP Pulse Ox 03/13/18 07:11 97.8 F 74 20 172/82 99 03/13/18 03:58 97.8 F 78 18 176/84 97 03/12/18 23:50 97.9 F 81 17 132/79 98 03/12/18 22:44 98 03/12/18 20:29 98.1 F 84 17 134/46 97 03/12/18 15:59 98.6 F 77 18 136/73 96 03/12/18 12:23 97.5 F L 18 139/67 03/12/18 12:15 159/71 03/12/18 12:00 143/70 03/12/18 11:45 148/85 03/12/18 11:30 122/86 03/12/18 11:15 131/74 03/12/18 11:00 125/71 03/12/18 10:45 139/77 03/12/18 10:30 126/60 03/12/18 10:15 144/71 03/12/18 10:00 159/68 03/12/18 09:58 97 03/12/18 09:45 155/89 03/12/18 09:30 147/81 Intake and Output 03/12/18 03/13/18 03/13/18 23:59 07:59 15:59 Intake Total 500 / 500 84 / 84 Balance 500 / 500 84 / 84 Intake: IV Fluids 500 / 500 84 / 84 Heparin 25,000 UNIT/500 ML D5W 500 / 500 84 / 84 25,000 unit In 500 ml @ 14 UNIT /KG/HR 44.071 mls/hr IVC . [id number] [facility] Rx#:[id number] Other: Stool Size Small Stool Consistency soft Stool Color Brown # Voids 1 # Bowel Movements 1 Weight 165 kg Blood Glucose* 286 155 Patient Weight 03/13/18 23:59 Weight 165 kg - General Appearance General appearance: Present: well-developed, well-nourished, obese EENT: Present: ATNC, hearing intact, vision intact Neck: Present: supple Respiratory: Present: clear Cardiology: Present: edema (+1 pitting edema noted to bilat lower extremites.), normal S1, normal S2 Dialysis Vascular Access: Venous Catheter (DRSG C/D/I) Gastrointestinal: Present: normoactive bowel sounds, no tenderness, no guarding Integumentary: Present: no rash, warm and dry Neurologic: Present: alert and oriented x3 Musculoskeletal: Present: no deformities, no erythema Psychiatric: Present: mood/affect appropriate, cooperative - Lab 03/13/18 00:50 03/13/18 00:50 Most recent lab results Calcium 8.4 mg/dL (8.6-10.3) L 03/13/18 00:50 Phosphorus 3.9 mg/dL (2.7-4.5) 03/11/18 04:03 Magnesium 1.5 mg/dL (1.6-2.6) L 03/12/18 06:30 Consult Discharge Plan - Plan Referrals: Mauro Dockery MD [Primary Care Provider] - 03/23/18 1:15 pm (Please follow up as schedule....)
[2018-03-13] MEDS ORDERED: Apixaban 5 MG TABLET PO SCH (10:30)
--- NOTE | 2018-03-13 10:40 | Discharge Summary ---
<Pedro El - Last Filed: 03/13/18 14:11> Orders not resulted at time of discharge: Pending orders 03/10/18 14:31 Urinalysis reflex Microscopic [URIN] Stat 03/12/18 11:28 25-oh vitamin D [Vitamin D 25 Hydroxy] Routine 03/14/18 04:00 PT/INR [Prothrombin Time INR] [COAG] AM 0400 Date of Encounter: 03/13/18 - Discharge Diagnosis (1) Subtherapeutic international normalized ratio (INR) Status: Acute (2) Atypical chest pain Status: Resolved (3) ESRD (end stage renal disease) Status: Acute (4) Heart failure with preserved ejection fraction Status: Acute Qualifiers: Heart failure chronicity: acute on chronic Qualified Code(s): I50.33 - Acute on chronic diastolic (congestive) heart failure (5) Hypocalcemia Status: Acute Hospital course: Ms. Mars is a 63 year old female - Time Spent with Patient Total time spent providing and/or coordinating discharge services: - Discharge Medications Prescriptions: Apixaban [Eliquis] 2.5 mg PO BID #60 tablet Calcium Carbonate [Tums] 1,000 mg PO TID 14 Days tab.chew Home Medications: Meclizine [Antivert] 25 mg PO TID PRN 09/12/14 [History] DiphenhydraMINE [Benadryl] 25 mg PO TID PRN 03/22/15 [History] Exenatide Microspheres [Bydureon Pen] 2 mg SQ WE 03/22/15 [History] Lidocaine Patch [Lidoderm 5% patch] 1 patch TP DAILY 03/22/15 [History] Nitroglycerin [Nitrostat] 0.4 mg SL Q5M PRN 03/22/15 [History] Promethazine [Phenergan] 25 mg PO TID PRN 03/22/15 [History] clonazePAM [Klonopin] 1 mg PO HS 03/22/15 [History] Albuterol Neb [AccuNeb] 1.25 mg IH QID 05/06/16 [History] Nystatin POWDER [Nystop] 1 appl TP BID 05/06/16 [History] Acetaminophen [Tylenol] 650 mg PO Q4-6H PRN 11/10/16 [History] Omeprazole [PriLOSEC] 40 mg PO DAILY@0730 11/10/16 [History] Gabapentin [Neurontin] 100 mg PO TID #90 capsule 11/27/16 [Rx] Albuterol Sulfate [Ventolin Hfa] 2 puff IH Q4H PRN 08/12/17 [History] Calcium Acetate [Phos-LO] 1,334 mg PO TIDWM 08/12/17 [History] Cyclobenzaprine [Flexeril] 10 mg PO TID PRN 08/12/17 [History] Docusate [Colace] 100 mg PO TID 08/12/17 [History] Doxepin HCl 50 mg PO HS 08/12/17 [History] Furosemide [Lasix] 40 mg PO QAM 08/12/17 [History] Insulin ASPART [Novolog Flexpen] 32 unit SQ TIDWM 08/12/17 [History] Levothyroxine Sodium [Levoxyl] 250 mcg PO DAILY@0630 08/12/17 [History] Metoprolol XL (24 HR) Succ [Toprol Xl] 25 mg PO DAILY 08/12/17 [History] hydrOXYzine HCl [Hydroxyzine HCl] 25 mg PO TID PRN 08/12/17 [History] Ergocalciferol (VITAMIN D2) [Vitamin D2] 50,000 unit PO QWEEK 09/23/17 [History] Furosemide [Lasix] 20 mg PO 1300 09/23/17 [History] Furosemide [Lasix] 40 mg PO QPM 09/23/17 [History] Amlodipine Besylate 10 mg PO DAILY 12/26/17 [History] Isosorbide MONOnitrate [Isosorbide Mononitrate ER] 30 mg PO DAILY 12/26/17 [History] Rosuvastatin Calcium [Crestor] 10 mg PO QPM 12/26/17 [History] Collagenase Oint [Santyl] 90 gm TP DAILY #1 oint...g. 12/28/17 [Rx] Insulin Glargine,Hum.rec.anlog [Lantus Solostar] 30 unit SQ BID #0 12/29/17 [Rx] Apixaban [Eliquis] 2.5 mg PO BID #60 tablet 03/13/18 [Rx] Calcium Carbonate [Tums] 1,000 mg PO TID 14 Days tab.chew 03/13/18 [Rx] Allergies/Adverse Reactions: Allergy/AdvReac Type Severity Reaction Status Date / Time aspirin Allergy Hives Verified 10/09/17 06:39 cephalexin [From Keflex] Allergy Difficulty Verified 10/09/17 06:39 Breathing Cortisone Allergy See Verified 10/09/17 06:39 Comments ibuprofen Allergy Hives Verified 10/09/17 06:39 Iodinated Contrast- Oral and Allergy See Verified 10/09/17 06:39 IV Dye Comments [Iodinated Contrast Media - IV Dye] lidocaine [From Xylocaine] Allergy See Verified 10/09/17 06:39 Comments loratadine [From Claritin] Allergy Hives Verified 10/09/17 06:39 Penicillins Allergy See Verified 10/09/17 06:39 Comments Procaine [From Novocain] Allergy See Verified 10/09/17 06:39 Comments propoxyphene [From Darvon] Allergy See Verified 10/09/17 06:39 Comments pseudoephedrine Allergy Hives Verified 10/09/17 06:39 [From Sudafed] ropinirole [From Requip] Allergy See Verified 10/09/17 06:39 Comments acetaminophen AdvReac See Verified 10/09/17 06:39 Comments albuterol AdvReac Shakiness Verified 10/09/17 06:39 calcium AdvReac See Verified 10/09/17 06:39 Comments ceftriaxone [From Rocephin] AdvReac See Verified 10/09/17 06:39 Comments clindamycin AdvReac Hypotension Verified 10/09/17 06:39 codeine AdvReac Hypertensio Verified 10/09/17 06:39 n doxycycline AdvReac See Verified 10/09/17 06:39 Comments famotidine AdvReac See Verified 10/09/17 06:39 Comments hydrocodone AdvReac See Verified 10/09/17 06:39 Comments hydrocortisone AdvReac Hypertensio Verified 10/09/17 06:39 n ipratropium AdvReac See Verified 10/09/17 06:39 Comments methylprednisolone AdvReac Hypertensio Verified 10/09/17 06:39 [From Solu-Medrol] n Neomycin AdvReac See Verified 10/09/17 06:39 Comments NSAIDS (Non-Steroidal AdvReac See Verified 10/09/17 06:39 Anti-Inflamma Comments prednisone AdvReac Hypertensio Verified 10/09/17 06:39 n Sulfa (Sulfonamide AdvReac See Verified 10/09/17 06:39 Antibiotics) Comments terfenadine AdvReac See Verified 10/09/17 06:39 Comments tramadol AdvReac See Verified 10/09/17 06:39 Comments Date of admission: 03/10/18 16:10 Primary care physician: Mauro Dockery MD Consults: 03/10/18 18:09 Consult to Nephrology [CONS] Routine Consulting Provider: Kidney Adriana/SANCHEZ/STEVEN/BABITA Reason for Consult: ESRD on HD TTS, completed 2hrs today 2/2 chest pain. Terrance led by ED Call Completed: Yes 03/11/18 07:07 Consult to Wound Care [CONS] Routine Reason for Consult: pre-existing wound, pt states she sees adriana wound care. Call Completed: No 03/11/18 07:30 Consult to Dialysis [CONS] ONCE 03/12/18 09:15 Consult to Dialysis [CONS] ONCE 03/13/18 08:00 Consult to Dialysis [CONS] ONCE - Constitutional Vitals: Temp Pulse Resp BP Pulse Ox 98.4 F 73 20 114/72 98 03/13/18 11:43 03/13/18 11:43 03/13/18 11:43 03/13/18 11:43 03/13/18 11:43 - Patient Status Disposition: Home Health Service Condition: Fair - Discharge Instructions Instructions: Apixaban (By mouth), Chest Pain (DC), Renal Failure Diet (DC), Diabetes Mellitus Type 2 in Adults (DC), Chronic Hypertension (DC) Follow Up With: Mauro Dockery MD [Primary Care Provider] - 03/23/18 1:15 pm (Please follow up as schedule....) Will Del Castillo DO [Partnered Physician] - (Nephro will see patient at the HD office) Additional Instructions: Follow up with your PCP in 3-5 days. Follow up with nephrology and dialysis as planned. Continue taking home medications, except warfarin and prior antibiotics. Continue taking eliquis 2.5mg twice daily. Return to the emergency department if symptoms recur or if new complaints or concerns arise. - Attending Attestation I examined this patient and my medical decision-making was reviewed with the Resident Physician. I agree with the documented findings, disposition and treatment plan as described except to the extent set forth below. After fluid removal patient is near baseline. No repeat occurrence of chest pain. She refused further chest pain workup of CTA during this admission. Troponins were negative, EKG without any acute changes. Chest pain was reproducible. Fluid removed with dialysis and diuresis and patient is at dry weight. INR was subtherapeutic for days despite resuming her home coumadin, which raises question if she is therapeutic at home, and she is high risk given history of DVT and atrial fibrillation. She is agreeable to transition to eliquis which will be more beneficial for this patient. Discussed plan with patient and Nephrology. <Carolyn Ivey N - Last Filed: 03/13/18 16:45> - NOTES TO OUTPATIENT PROVIDER Notes to Outpatient Provider: Patient presented for evaluation of atypical chest pain. She refused to have a CTA due to severe claustrophobia. She was noted to have subtherapeutic INR. Patient was started on a heparin drip in order to bridge to therapeutic level; however, anticoagulation was ultimately changed to eliquis 2.5mg BID. Orders not resulted at time of discharge: Pending orders 03/10/18 14:31 Urinalysis reflex Microscopic [URIN] Stat 03/12/18 11:28 25-oh vitamin D [Vitamin D 25 Hydroxy] Routine 03/14/18 04:00 PT/INR [Prothrombin Time INR] [COAG] AM 0400 Date of Encounter: 03/13/18 Time of Encounter: 10:40 - Discharge Diagnosis (1) Subtherapeutic international normalized ratio (INR) Priority: Secondary Status: Acute (2) Hypocalcemia Priority: Secondary Status: Acute (3) Atypical chest pain Priority: Primary Status: Resolved (4) ESRD (end stage renal disease) Priority: Secondary Status: Acute (5) Heart failure with preserved ejection fraction Priority: Secondary Status: Acute Qualifiers: Heart failure chronicity: acute on chronic Qualified Code(s): I50.33 - Acute on chronic diastolic (congestive) heart failure Hospital course: Ms. Mars is a 63 year old female who presented to the emergency department on 03/10/18 due to sudden back pain with associated chest pain that occurred during hemodialysis. Per review of admission history and physical, patient describes the pain as severe, stating that it took her breath away and radiated to her chest. She denied any associated shortness of breath. She reported that the pain resolved on its own after lasting for approximately 1-1/2 hours. She did report a history of similar pain associated with musculoskeletal dysfunction that is alleviated with muscle relaxers; however, she reported that the pain did not improve after taking muscle relaxers earlier that day. Laboratory studies were unremarkable, the patient was noted to have a subtherapeutic INR. She was admitted to the hospital to rule out ACS and for bridging via heparin drip. Patient continued to have subtherapeutic INR despite increased doses of Coumadin. Patient expressed interest in switching to Eliquis for anticoagulation, which was approved by nephrology. Patient received 1 dose prior to discharge. - Time Spent with Patient Total time spent providing and/or coordinating discharge services: Date of admission: 03/10/18 16:10 Primary care physician: Mauro Dockery MD Consults: 03/10/18 18:09 Consult to Nephrology [CONS] Routine Consulting Provider: Kidney Adriana/SANCHEZ/STEVEN/BABITA Reason for Consult: ESRD on HD TTS, completed 2hrs today 2/2 chest pain. Called by ED Call Completed: Yes 03/11/18 07:07 Consult to Wound Care [CONS] Routine Reason for Consult: pre-existing wound, pt states she sees adriana wound care. Call Completed: No 03/11/18 07:30 Consult to Dialysis [CONS] ONCE 03/12/18 09:15 Consult to Dialysis [CONS] ONCE 03/13/18 08:00 Consult to Dialysis [CONS] ONCE Discharging clinician: Carolyn Ivey Anticipated date of discharge: 03/13/18 - Constitutional Vitals: Temp Pulse Resp BP Pulse Ox 97.8 F 74 20 172/82 99 03/13/18 07:11 03/13/18 07:11 03/13/18 07:11 03/13/18 07:11 03/13/18 07:11 Exam: GENERAL: Vitals noted. No acute distress. Patient is morbidly obese HEENT: Atraumatic and normocephalic CARDIOVASCULAR: RRR, no murmur, +S1/S2 RESPIRATORY: Diffusely decreased breath sounds bilaterally without overt wheezes appreciated GASTROINTESTINAL: Soft and nontender abdomen. EXTREMITIES: BLE nonpitting edema with evidence of long-term stasis, nontender calf, no cyanosis or clubbing SKIN: Warm, dry, and intact. PSYCHIATRIC: Appropriate mood and affect. NEUROLOGIC: moves all extremities, no focal deficits. patient is cooperative with exam and answers questions appropriately - Patient Status Overall status at discharge: patient is progressing back to baseline - Diet and Activity Activity: increase activity as tolerated Diet: diabetic diet, low fat, low cholesterol, low salt diet
[2018-03-13] MEDS: Nystatin POWDER 30 GM BOTTLE TP SCH (11:41)
[2018-03-13] MEDS: Heparin 25,000 UNIT/500 ML D5W 25,000 UNIT/500 ML BAG IVC SCH (11:49)
[2018-03-13 11:53] VITALS: BP 114/72
[2018-03-13] MEDS: Furosemide 20 MG TABLET PO SCH (12:50)
--- NOTE | 2018-03-13 14:33 | Physician Discharge Referral ---
Home Health/Hosp Referral Info Transfer to: Home Health Attending Provider: Dr. Kee El Provider in Charge Post Discharge: PCP - Diagnosis (1) Subtherapeutic international normalized ratio (INR) Priority: Secondary Status: Acute (2) Hypocalcemia Priority: Secondary Status: Acute (3) Atypical chest pain Priority: Primary Status: Resolved (4) ESRD (end stage renal disease) Priority: Secondary Status: Acute (5) Heart failure with preserved ejection fraction Priority: Secondary Status: Acute - Respiratory Orders Smoking Cessation: Smoking cessation has been advised. For more information, call the [place] Tobacco Quit Line at 8-891-ACKO-NOW. - Diet/Nutrition Diet/Nutrition Orders: Renal (ADA Diet) - Services Needed Following services are medically necessary services: Nursing, Home Health Aide, Physical Therapy, Occupational Therapy, Med Social Work - Transfer Medications Prescriptions: Apixaban [Eliquis] 2.5 mg PO BID #60 tablet Calcium Carbonate [Tums] 1,000 mg PO TID 14 Days tab.chew Home Medications: Meclizine [Antivert] 25 mg PO TID PRN 09/12/14 [History] DiphenhydraMINE [Benadryl] 25 mg PO TID PRN 03/22/15 [History] Exenatide Microspheres [Bydureon Pen] 2 mg SQ WE 03/22/15 [History] Lidocaine Patch [Lidoderm 5% patch] 1 patch TP DAILY 03/22/15 [History] Nitroglycerin [Nitrostat] 0.4 mg SL Q5M PRN 03/22/15 [History] Promethazine [Phenergan] 25 mg PO TID PRN 03/22/15 [History] clonazePAM [Klonopin] 1 mg PO HS 03/22/15 [History] Albuterol Neb [AccuNeb] 1.25 mg IH QID 05/06/16 [History] Nystatin POWDER [Nystop] 1 appl TP BID 05/06/16 [History] Acetaminophen [Tylenol] 650 mg PO Q4-6H PRN 11/10/16 [History] Omeprazole [PriLOSEC] 40 mg PO DAILY@0730 11/10/16 [History] Gabapentin [Neurontin] 100 mg PO TID #90 capsule 11/27/16 [Rx] Albuterol Sulfate [Ventolin Hfa] 2 puff IH Q4H PRN 08/12/17 [History] Calcium Acetate [Phos-LO] 1,334 mg PO TIDWM 08/12/17 [History] Cyclobenzaprine [Flexeril] 10 mg PO TID PRN 08/12/17 [History] Docusate [Colace] 100 mg PO TID 08/12/17 [History] Doxepin HCl 50 mg PO HS 08/12/17 [History] Furosemide [Lasix] 40 mg PO QAM 08/12/17 [History] Insulin ASPART [Novolog Flexpen] 32 unit SQ TIDWM 08/12/17 [History] Levothyroxine Sodium [Levoxyl] 250 mcg PO DAILY@0630 08/12/17 [History] Metoprolol XL (24 HR) Succ [Toprol Xl] 25 mg PO DAILY 08/12/17 [History] hydrOXYzine HCl [Hydroxyzine HCl] 25 mg PO TID PRN 08/12/17 [History] Ergocalciferol (VITAMIN D2) [Vitamin D2] 50,000 unit PO QWEEK 09/23/17 [History] Furosemide [Lasix] 20 mg PO 1300 09/23/17 [History] Furosemide [Lasix] 40 mg PO QPM 09/23/17 [History] Amlodipine Besylate 10 mg PO DAILY 12/26/17 [History] Isosorbide MONOnitrate [Isosorbide Mononitrate ER] 30 mg PO DAILY 12/26/17 [History] Rosuvastatin Calcium [Crestor] 10 mg PO QPM 12/26/17 [History] Collagenase Oint [Santyl] 90 gm TP DAILY #1 oint...g. 12/28/17 [Rx] Insulin Glargine,Hum.rec.anlog [Lantus Solostar] 30 unit SQ BID #0 12/29/17 [Rx] Apixaban [Eliquis] 2.5 mg PO BID #60 tablet 03/13/18 [Rx] Calcium Carbonate [Tums] 1,000 mg PO TID 14 Days tab.chew 03/13/18 [Rx] Allergies/Adverse Reactions: Allergy/AdvReac Type Severity Reaction Status Date / Time aspirin Allergy Hives Verified 10/09/17 06:39 cephalexin [From Keflex] Allergy Difficulty Verified 10/09/17 06:39 Breathing Cortisone Allergy See Verified 10/09/17 06:39 Comments ibuprofen Allergy Hives Verified 10/09/17 06:39 Iodinated Contrast- Oral and Allergy See Verified 10/09/17 06:39 IV Dye Comments [Iodinated Contrast Media - IV Dye] lidocaine [From Xylocaine] Allergy See Verified 10/09/17 06:39 Comments loratadine [From Claritin] Allergy Hives Verified 10/09/17 06:39 Penicillins Allergy See Verified 10/09/17 06:39 Comments Procaine [From Novocain] Allergy See Verified 10/09/17 06:39 Comments propoxyphene [From Darvon] Allergy See Verified 10/09/17 06:39 Comments pseudoephedrine Allergy Hives Verified 10/09/17 06:39 [From Sudafed] ropinirole [From Requip] Allergy See Verified 10/09/17 06:39 Comments acetaminophen AdvReac See Verified 10/09/17 06:39 Comments albuterol AdvReac Shakiness Verified 10/09/17 06:39 calcium AdvReac See Verified 10/09/17 06:39 Comments ceftriaxone [From Rocephin] AdvReac See Verified 10/09/17 06:39 Comments clindamycin AdvReac Hypotension Verified 10/09/17 06:39 codeine AdvReac Hypertensio Verified 10/09/17 06:39 n doxycycline AdvReac See Verified 10/09/17 06:39 Comments famotidine AdvReac See Verified 10/09/17 06:39 Comments hydrocodone AdvReac See Verified 10/09/17 06:39 Comments hydrocortisone AdvReac Hypertensio Verified 10/09/17 06:39 n ipratropium AdvReac See Verified 10/09/17 06:39 Comments methylprednisolone AdvReac Hypertensio Verified 10/09/17 06:39 [From Solu-Medrol] n Neomycin AdvReac See Verified 10/09/17 06:39 Comments NSAIDS (Non-Steroidal AdvReac See Verified 10/09/17 06:39 Anti-Inflamma Comments prednisone AdvReac Hypertensio Verified 10/09/17 06:39 n Sulfa (Sulfonamide AdvReac See Verified 10/09/17 06:39 Antibiotics) Comments terfenadine AdvReac See Verified 10/09/17 06:39 Comments tramadol AdvReac See Verified 10/09/17 06:39 Comments Certification: Further, I certify that my clinical findings support that this patient is homebound (i.e. absences from home require considerable and taxing effort and are for medical reasons or hinduism services or infrequently or short duration when for other reasons) because: Homebound Reason: Patient requires assistance of a person or device to safely leave home, Leaving home requires considerable and taxing effort due to condition, Severity of cardiac or pulmonary status limits activity tolerance Attestation: My signature below is to certify that this patient is under my care and that I, or nurse practitioner, or a physician's registered dental assistant rda working with me, has a [id number] encounter with this patient.
[2018-03-13] MEDS ORDERED: *HR* Warfarin 7.5 MG TABLET PO ONE (18:00)
== END 2018-03-13 16:01 | disposition home health service (06) ==
LOC: EMEROOARM 13:40 → 2ANU 13:40 → SUATTDRO 16:10 → 2ANU 16:29
PROVIDERS: ADMIT Internal Medicine; ATTEND Student in an Organized Health Care Education/Training Program

== ENCOUNTER 2018-07-02 13:06 | Observation (INO) ==
[2018-07-02 13:51] LABS: Basophils % 0.5 %; Eosinophils # 0.2 K/mcL (0.0-0.6); Eosinophils % 3.1 %; Hematocrit 34.7 % (35.3-44.9); Hemoglobin 10.2 g/dL (11.5-15.4); Immature Granulocytes % 0.5 % (0-4); Lymphocytes # 1.3 K/mcL (0.6-4.6); Lymphocytes % 19.4 %; Mean Corpuscular HGB Conc 29.4 g/dL (31.6-35.5); Mean Corpuscular Hemoglobin 31.1 pg (28.0-33.3); Mean Corpuscular Volume 105.8 fL (83.0-100.0); Mean Platelet Volume 9.8 fL (9.4-12.4); Monocytes # 0.4 K/mcL (0.0-1.3); Monocytes % 6.6 %; Neutrophils # 4.5 K/mcL (1.6-8.9); Nucleated Red Blood Cells 0.3 /100 WBC (0); Platelet Count 206 K/mcL (140-400); Red Blood Count 3.28 M/mcL (3.82-4.97); Red Cell Distribution Width 16.1 % (11.5-14.5); Segmented Neutrophils % 69.9 %
--- NOTE | 2018-07-02 14:09 | Emergency Department Note ---
Disposition Clinical Impression: Volume overload Qualifiers: Hypervolemia type: unspecified Qualified Code(s): E87.70 - Fluid overload, unspecified Chest pain Qualifiers: Chest pain type: unspecified Qualified Code(s): R07.9 - Chest pain, unspecified Dyspnea Qualifiers: Dyspnea type: shortness of breath Qualified Code(s): R06.02 - Shortness of breath Disposition: Admitted As Inpatient Condition: Fair Time of Disposition: 16:49 Chest Pain HPI - General Chief Complaint: ED Chest Pain Stated Complaint: chest pain Time Seen by Provider: 07/02/18 13:10 Vital Signs Reviewed: Yes Nursing Notes Reviewed: Yes - History of Present Illness HPI Narrative: 63-year-old female with past medical history of heart failure, COPD, end-stage renal disease and presents via EMS from dialysis clinic for 10/10 chest pain across her chest and radiating to the right shoulder that is sharp and pressure in nature, that took 20 minutes to reach maximum intensity from onset, is associated with shortness of breath and nausea but no vomiting, associated with feeling warm and chills, the pain is worse with breathing but is constant. She states this has happened many times before with identical symptoms, she states that on those occasions her symptoms were attributed to heart failure. She states her symptoms are currently present and are 10 out of 10. Severity scale (1-10): 0 - Related Data Home Medications Medication Instructions Recorded Confirmed DiphenhydraMINE [Benadryl] 25 mg PO TID PRN 03/22/15 07/02/18 Exenatide Microspheres [Bydureon 2 mg SQ WE 03/22/15 07/02/18 Pen] Nitroglycerin [Nitrostat] 0.4 mg SL Q5M PRN 03/22/15 07/02/18 Promethazine [Phenergan] 25 mg PO TID PRN 03/22/15 07/02/18 clonazePAM [Klonopin] 1 mg PO HS PRN 03/22/15 07/02/18 Albuterol Neb [AccuNeb] 1.25 mg IH QID 05/06/16 07/02/18 Omeprazole [PriLOSEC] 40 mg PO DAILY 11/10/16 07/02/18 Albuterol Sulfate [Ventolin Hfa] 2 puff IH Q4H PRN 08/12/17 07/02/18 Cyclobenzaprine [Flexeril] 10 mg PO TID PRN 08/12/17 07/02/18 Docusate [Colace] 100 mg PO TID PRN 08/12/17 07/02/18 Doxepin HCl 50 mg PO HS 08/12/17 07/02/18 Insulin ASPART [Novolog Flexpen] 32 unit SQ TIDWM 08/12/17 07/02/18 Levothyroxine Sodium [Levoxyl] 250 mcg PO QAM 08/12/17 07/02/18 hydrOXYzine HCl [Hydroxyzine HCl] 25 mg PO TID PRN 08/12/17 07/02/18 Ergocalciferol (VITAMIN D2) 50,000 unit PO WE 09/23/17 07/02/18 [Vitamin D2] Furosemide [Lasix] 20 mg PO 1300 09/23/17 07/02/18 Isosorbide MONOnitrate [Isosorbide 30 mg PO HS 12/26/17 07/02/18 Mononitrate ER] Rosuvastatin Calcium [Crestor] 10 mg PO QPM 12/26/17 07/02/18 Collagenase Oint [Santyl] 1 appl TP DAILY 04/15/18 07/02/18 Acetaminophen [Tylenol] 1,000 mg PO TID 06/18/18 07/02/18 Allopurinol [Zyloprim 300 MG] 300 mg PO DAILY 06/18/18 07/02/18 Amlodipine Besylate 10 mg PO HS 06/18/18 07/02/18 Apixaban [Eliquis] 5 mg PO BID 06/18/18 07/02/18 Calcium Acetate [Phoslyra] 5 ml PO TIDWM 06/18/18 07/02/18 Furosemide [Lasix] 20 mg PO 2200 06/18/18 07/02/18 Furosemide [Lasix] 40 mg PO QAM 06/18/18 07/02/18 Insulin Glargine,Hum.rec.anlog 80 unit SQ BID 06/18/18 07/02/18 [Lantus Solostar] Meclizine HCl [Verticalm] 25 mg PO TID PRN 06/18/18 07/02/18 Metoprolol Succinate [Toprol Xl] 25 mg PO DAILY 06/18/18 07/02/18 Ammonium Lactate [Sachi-Hydrolac] 1 appl TP BID PRN 07/02/18 07/02/18 Budesonide/Formoterol 160/4.5 2 puff IH BID 07/02/18 07/02/18 [Symbicort 160/4.5] Nystatin POWDER [Nystop] 1 appl TP TID PRN 07/02/18 07/02/18 Previous Rx's Medication Instructions Recorded Gabapentin [Neurontin] 100 mg PO TID #90 capsule 11/27/16 Allergies Allergy/AdvReac Type Severity Reaction Status Date / Time aspirin Allergy Hives Verified 06/18/18 08:47 cephalexin [From Keflex] Allergy Difficulty Verified 06/18/18 08:47 Breathing Cortisone Allergy See Verified 06/18/18 08:47 Comments ibuprofen Allergy Hives Verified 06/18/18 08:47 Iodinated Contrast- Oral and Allergy See Verified 06/18/18 08:47 IV Dye Comments [Iodinated Contrast Media - IV Dye] lidocaine [From Xylocaine] Allergy See Verified 06/18/18 08:47 Comments loratadine [From Claritin] Allergy Hives Verified 06/18/18 08:47 Penicillins Allergy See Verified 06/18/18 15:43 Comments Procaine [From Novocain] Allergy See Verified 06/18/18 08:47 Comments propoxyphene [From Darvon] Allergy See Verified 06/18/18 08:47 Comments pseudoephedrine Allergy Hives Verified 06/18/18 08:47 [From Sudafed] ropinirole [From Requip] Allergy Hallucinati Verified 06/18/18 15:43 ng albuterol AdvReac Shakiness Verified 06/18/18 08:47 ceftriaxone [From Rocephin] AdvReac See Verified 06/18/18 08:47 Comments clindamycin AdvReac Hypotension Verified 06/18/18 08:47 codeine AdvReac Hypertensio Verified 06/18/18 08:47 n doxycycline AdvReac Confusion Verified 06/18/18 15:43 famotidine AdvReac See Verified 06/18/18 08:47 Comments hydrocodone AdvReac See Verified 06/18/18 08:47 Comments hydrocortisone AdvReac Hypertensio Verified 06/18/18 08:47 n ipratropium AdvReac See Verified 06/18/18 08:47 Comments methylprednisolone AdvReac Hypertensio Verified 06/18/18 08:47 [From Solu-Medrol] n Neomycin AdvReac See Verified 06/18/18 08:47 Comments NSAIDS (Non-Steroidal AdvReac See Verified 06/18/18 08:47 Anti-Inflamma Comments prednisone AdvReac Hypertensio Verified 06/18/18 08:47 n Sulfa (Sulfonamide AdvReac See Verified 06/18/18 08:47 Antibiotics) Comments terfenadine AdvReac See Verified 06/18/18 08:47 Comments tramadol AdvReac See Verified 06/18/18 08:47 Comments All systems ED: reviewed and negative except as stated. Review of Systems: As Per HPI Chest Pain PMH - Past Medical History Medical history: Reports: arthritis, CHF, COPD, DVT, diabetes, dialysis, GERD, hyperlipidemia, hypertension, migraine, osteoporosis, renal disease, thyroid disease, TIA Surgical history: Reports: appendectomy, hysterectomy, orthopedic, other, IVC filter Psychiatric history: Reports: anxiety, depression COMPTOMETRIST history: Reports: bilateral 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 - Social History Smoking Status: Former smoker Alcohol use: Reports: occasionally Drug use: Reports: none Physical Exam - General General appearance: alert, other (63 female who appears stated age lying in bed, appears comfortable, not grimacing, saturating and ventilating appropriately on 3 L nasal cannula which she uses at home) - Chest Chest inspection: Present: normal inspection, symmetric chest wall rise, tenderness (Bilateral anterior chest wall is significantly tender to palpation) - Respiratory Respiratory exam: Present: other (Normal lung sounds anteriorly, there are mild crackles in bilateral bases) - Cardiovascular Cardiovascular exam: Present: regular rate, normal rhythm, normal heart sounds - Abdominal Exam Abdominal exam: Present: soft, Non-Tender - Extremities Exam Extremities exam: Present: other (The right shoulder is tender to palpation and painful with active and passive range of motion, bilateral lower extremities are edematous) - Neurological Exam Neurological exam: Present: alert, oriented X3 - Skin Skin exam: Present: warm, dry. Absent: rash, diaphoresis, erythema, pallor Course Course Narrative: Patient presenting with chest pain, will workup with EKG, chest x-ray, troponin, CBC, BMP. Her chest wall pain and shoulder pain is reproducible with palpation. Vital Signs Temperature 97.9 F 07/02/18 13:14 Pulse Rate 76 07/02/18 13:14 Respiratory Rate 20 07/02/18 13:14 Blood Pressure 135/69 07/02/18 13:14 O2 Sat by Pulse Oximetry 100 07/02/18 13:14 Temperature 97.5 F L 07/02/18 18:50 Pulse Rate 78 07/02/18 18:50 Respiratory Rate 18 07/02/18 18:50 Blood Pressure 170/83 07/02/18 18:50 O2 Sat by Pulse Oximetry 96 07/02/18 18:50 Oxygen Delivery Oxygen Delivery Nasal Cannula Chest Pain - MDM Narrative Medical decision making narrative: Labs significant for mild macrocytic anemia hemoglobin 10.2 and elevated creatinine consistent with end-stage renal disease. EKG without acute abnormal ity and troponin less than 0.03. Heart score 3. Chest x-ray demonstrating pulmonary edema consistent with volume overload over dry weight from incomplete dialysis session. Due to her significant past medical history, presenting symptoms of chest pain during dialysis the patient is high risk and will be admitted for chest pain rule out. Case discussed with admitting hospitalist Dr. Dominguez who agreed to admit patient to the medicine service. She will be transferred under the care of the medicine service in stable medical condition. - Medical Records Medical records reviewed: Yes I reviewed the patient's medical records. - Lab Data Lab results reviewed: Yes I reviewed the patient's lab results. Result diagrams: 07/02/18 13:37 07/02/18 13:37 Lab Results 07/02/18 07/02/18 Range/Units 13:37 13:37 WBC 6.5 (4.3-11.1) K/mcL RBC 3.28 L (3.82-4.97) M/mcL Hgb 10.2 L (11.5-15.4) g/dL Hct 34.7 L (35.3-44.9) % MCV 105.8 H (83.0-100.0) fL MCH 31.1 (28.0-33.3) pg MCHC 29.4 L (31.6-35.5) g/dL RDW 16.1 H (11.5-14.5) % Plt Count 206 (140-400) K/mcL MPV 9.8 (9.4-12.4) fL Immature Gran % 0.5 (0-4) % Seg Neutrophils % 69.9 % Lymphocytes % 19.4 % Monocytes % 6.6 % Eosinophils % 3.1 % Basophils % 0.5 % Neutrophils # 4.5 (1.6-8.9) K/mcL Lymphocytes # 1.3 (0.6-4.6) K/mcL Monocytes # 0.4 (0.0-1.3) K/mcL Eosinophils # 0.2 (0.0-0.6) K/mcL Basophils # 0.0 (0.0-0.2) K/mcL Nucleated RBCs/100 WBC 0.3 H (0) /100 WBC Sodium 139 (136-145) mEq/L Potassium 4.0 (3.5-5.1) mEq/L Chloride 99 (98-107) mEq/L Carbon Dioxide 25 (23-29) mEq/L BUN 35 H (8-23) mg/dL Creatinine 3.52 H (0.60-1.20) mg/dL Est GFR ( Amer) 16 L (> 60) Est GFR (Non-Af Amer) 13 L (> 60) BUN/Creatinine Ratio 10 (6-26) Glucose 172 H (70-105) mg/dL Calculated Osmolality 300 (280-300) Calcium 8.0 L (8.6-10.3) mg/dL Troponin I 0.03 (< 0.04) ng/mL Triglycerides 155 H (< 150) mg/dL Cholesterol 135 (< 200) mg/dL LDL Cholesterol, Calc 57 (0-99) mg/dL VLDL Cholesterol, Calc 31 H (< 31) mg/dL HDL Cholesterol 47 (40-59) mg/dL Cholesterol/HDL Ratio 2.9 (0-4.9) - Radiology Data Radiology results reviewed: Yes I reviewed the patient's radiology results. Chest X-Ray 07/02/18 13:15 IMPRESSION: 1. Pulmonary edema. D/ / Dayne Cnator MD / Dayne Cantor MD Interpreting Provider: Dayne Cantor MD - EKG Data EKG attestation: Yes I reviewed and interpreted this EKG. EKG results narrative: EKG performed 07/02/18 for chest pain. Sinus rhythm, heart rate 75, UT 190, QRS T1 101, QTC 472. No ST elevation or depression or T-wave inversion consistent with acute ischemia. No other acute abnormalities noted. No changes from previous EKG from 06/18/2018. Heart Score - Score History: Moderately Suspicious EKG: Normal Age: 45-65 Risk Factors: 1-2 risk factors Troponin: Less than normal limit HEART Score Total: 3
[2018-07-02 14:21] LABS: Troponin I 0.03 ng/mL (< 0.04)
--- NOTE | 2018-07-02 14:26 | Emergency Department Note ---
Disposition Clinical Impression: ESRD (end stage renal disease) on dialysis Volume overload Qualifiers: Hypervolemia type: unspecified Qualified Code(s): E87.70 - Fluid overload, unspecified Dyspnea Qualifiers: Dyspnea type: shortness of breath Qualified Code(s): R06.02 - Shortness of breath Chest pain Qualifiers: Chest pain type: unspecified Qualified Code(s): R07.9 - Chest pain, unspecified Disposition: Admitted As Inpatient Condition: Fair Time of Disposition: 16:49 General Adult HPI - General Chief complaint: ED Chest Pain Stated complaint: chest pain Time Seen by Provider: 07/02/18 13:10 - History of Present Illness Pain Scale: 0 - Related Data Home Medications Medication Instructions Recorded Confirmed DiphenhydraMINE [Benadryl] 25 mg PO TID PRN 03/22/15 07/02/18 Exenatide Microspheres [Bydureon 2 mg SQ WE 03/22/15 07/02/18 Pen] Nitroglycerin [Nitrostat] 0.4 mg SL Q5M PRN 03/22/15 07/02/18 Promethazine [Phenergan] 25 mg PO TID PRN 03/22/15 07/02/18 clonazePAM [Klonopin] 1 mg PO HS PRN 03/22/15 07/02/18 Albuterol Neb [AccuNeb] 1.25 mg IH QID 05/06/16 07/02/18 Omeprazole [PriLOSEC] 40 mg PO DAILY 11/10/16 07/02/18 Albuterol Sulfate [Ventolin Hfa] 2 puff IH Q4H PRN 08/12/17 07/02/18 Cyclobenzaprine [Flexeril] 10 mg PO TID PRN 08/12/17 07/02/18 Docusate [Colace] 100 mg PO TID PRN 08/12/17 07/02/18 Doxepin HCl 50 mg PO HS 08/12/17 07/02/18 Insulin ASPART [Novolog Flexpen] 32 unit SQ TIDWM 08/12/17 07/02/18 Levothyroxine Sodium [Levoxyl] 250 mcg PO QAM 08/12/17 07/02/18 hydrOXYzine HCl [Hydroxyzine HCl] 25 mg PO TID PRN 08/12/17 07/02/18 Ergocalciferol (VITAMIN D2) 50,000 unit PO WE 09/23/17 07/02/18 [Vitamin D2] Furosemide [Lasix] 20 mg PO 1300 09/23/17 07/02/18 Isosorbide MONOnitrate [Isosorbide 30 mg PO HS 12/26/17 07/02/18 Mononitrate ER] Rosuvastatin Calcium [Crestor] 10 mg PO QPM 12/26/17 07/02/18 Collagenase Oint [Santyl] 1 appl TP DAILY 04/15/18 07/02/18 Acetaminophen [Tylenol] 1,000 mg PO TID 06/18/18 07/02/18 Allopurinol [Zyloprim 300 MG] 300 mg PO DAILY 06/18/18 07/02/18 Amlodipine Besylate 10 mg PO HS 06/18/18 07/02/18 Apixaban [Eliquis] 5 mg PO BID 06/18/18 07/02/18 Calcium Acetate [Phoslyra] 5 ml PO TIDWM 06/18/18 07/02/18 Furosemide [Lasix] 20 mg PO 2200 06/18/18 07/02/18 Furosemide [Lasix] 40 mg PO QAM 06/18/18 07/02/18 Insulin Glargine,Hum.rec.anlog 80 unit SQ BID 06/18/18 07/02/18 [Lantus Solostar] Meclizine HCl [Verticalm] 25 mg PO TID PRN 06/18/18 07/02/18 Metoprolol Succinate [Toprol Xl] 25 mg PO DAILY 06/18/18 07/02/18 Ammonium Lactate [Sachi-Hydrolac] 1 appl TP BID PRN 07/02/18 07/02/18 Budesonide/Formoterol 160/4.5 2 puff IH BID 07/02/18 07/02/18 [Symbicort 160/4.5] Nystatin POWDER [Nystop] 1 appl TP TID PRN 07/02/18 07/02/18 Previous Rx's Medication Instructions Recorded Gabapentin [Neurontin] 100 mg PO TID #90 capsule 11/27/16 Allergies Allergy/AdvReac Type Severity Reaction Status Date / Time aspirin Allergy Hives Verified 06/18/18 08:47 cephalexin [From Keflex] Allergy Difficulty Verified 06/18/18 08:47 Breathing Cortisone Allergy See Verified 06/18/18 08:47 Comments ibuprofen Allergy Hives Verified 06/18/18 08:47 Iodinated Contrast- Oral and Allergy See Verified 06/18/18 08:47 IV Dye Comments [Iodinated Contrast Media - IV Dye] lidocaine [From Xylocaine] Allergy See Verified 06/18/18 08:47 Comments loratadine [From Claritin] Allergy Hives Verified 06/18/18 08:47 Penicillins Allergy See Verified 06/18/18 15:43 Comments Procaine [From Novocain] Allergy See Verified 06/18/18 08:47 Comments propoxyphene [From Darvon] Allergy See Verified 06/18/18 08:47 Comments pseudoephedrine Allergy Hives Verified 06/18/18 08:47 [From Sudafed] ropinirole [From Requip] Allergy Hallucinati Verified 06/18/18 15:43 ng albuterol AdvReac Shakiness Verified 06/18/18 08:47 ceftriaxone [From Rocephin] AdvReac See Verified 06/18/18 08:47 Comments clindamycin AdvReac Hypotension Verified 06/18/18 08:47 codeine AdvReac Hypertensio Verified 06/18/18 08:47 n doxycycline AdvReac Confusion Verified 06/18/18 15:43 famotidine AdvReac See Verified 06/18/18 08:47 Comments hydrocodone AdvReac See Verified 06/18/18 08:47 Comments hydrocortisone AdvReac Hypertensio Verified 06/18/18 08:47 n ipratropium AdvReac See Verified 06/18/18 08:47 Comments methylprednisolone AdvReac Hypertensio Verified 06/18/18 08:47 [From Solu-Medrol] n Neomycin AdvReac See Verified 06/18/18 08:47 Comments NSAIDS (Non-Steroidal AdvReac See Verified 06/18/18 08:47 Anti-Inflamma Comments prednisone AdvReac Hypertensio Verified 06/18/18 08:47 n Sulfa (Sulfonamide AdvReac See Verified 06/18/18 08:47 Antibiotics) Comments terfenadine AdvReac See Verified 06/18/18 08:47 Comments tramadol AdvReac See Verified 06/18/18 08:47 Comments Past Medical History - Past Medical History Medical history: Reports: arthritis, CHF, COPD, DVT, diabetes, dialysis, GERD, hyperlipidemia, hypertension, migraine, osteoporosis, renal disease, thyroid disease, TIA Surgical history: Reports: appendectomy, hysterectomy, orthopedic, other, IVC filter Psychiatric history: Reports: anxiety, depression [employer]PER[employer] history: Reports: bilateral 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 - Social History Smoking Status: Former smoker Smokeless Tobacco Status: No Alcohol use: Reports: occasionally Drug use: Reports: none Physical Exam - General General appearance: alert Course Vital Signs Temperature 97.9 F 07/02/18 13:14 Pulse Rate 76 07/02/18 13:14 Respiratory Rate 20 07/02/18 13:14 Blood Pressure 135/69 07/02/18 13:14 O2 Sat by Pulse Oximetry 100 07/02/18 13:14 Temperature 97.5 F L 07/02/18 18:50 Pulse Rate 78 07/02/18 18:50 Respiratory Rate 18 07/02/18 18:50 Blood Pressure 170/83 07/02/18 18:50 O2 Sat by Pulse Oximetry 96 07/02/18 18:50 Oxygen Delivery Oxygen Delivery Nasal Cannula Medical Decision Making - Lab Data Result diagrams: 07/02/18 13:37 07/02/18 13:37 Lab Results 07/02/18 07/02/18 Range/Units 13:37 13:37 WBC 6.5 (4.3-11.1) K/mcL RBC 3.28 L (3.82-4.97) M/mcL Hgb 10.2 L (11.5-15.4) g/dL Hct 34.7 L (35.3-44.9) % MCV 105.8 H (83.0-100.0) fL MCH 31.1 (28.0-33.3) pg MCHC 29.4 L (31.6-35.5) g/dL RDW 16.1 H (11.5-14.5) % Plt Count 206 (140-400) K/mcL MPV 9.8 (9.4-12.4) fL Immature Gran % 0.5 (0-4) % Seg Neutrophils % 69.9 % Lymphocytes % 19.4 % Monocytes % 6.6 % Eosinophils % 3.1 % Basophils % 0.5 % Neutrophils # 4.5 (1.6-8.9) K/mcL Lymphocytes # 1.3 (0.6-4.6) K/mcL Monocytes # 0.4 (0.0-1.3) K/mcL Eosinophils # 0.2 (0.0-0.6) K/mcL Basophils # 0.0 (0.0-0.2) K/mcL Nucleated RBCs/100 WBC 0.3 H (0) /100 WBC Sodium 139 (136-145) mEq/L Potassium 4.0 (3.5-5.1) mEq/L Chloride 99 (98-107) mEq/L Carbon Dioxide 25 (23-29) mEq/L BUN 35 H (8-23) mg/dL Creatinine 3.52 H (0.60-1.20) mg/dL Est GFR ( Amer) 16 L (> 60) Est GFR (Non-Af Amer) 13 L (> 60) BUN/Creatinine Ratio 10 (6-26) Glucose 172 H (70-105) mg/dL Calculated Osmolality 300 (280-300) Calcium 8.0 L (8.6-10.3) mg/dL Troponin I 0.03 (< 0.04) ng/mL Triglycerides 155 H (< 150) mg/dL Cholesterol 135 (< 200) mg/dL LDL Cholesterol, Calc 57 (0-99) mg/dL VLDL Cholesterol, Calc 31 H (< 31) mg/dL HDL Cholesterol 47 (40-59) mg/dL Cholesterol/HDL Ratio 2.9 (0-4.9) Attestation Statement - Attestation Attestation: I saw and evalated the patient and and reviewed the resident's note/PA note/HOSPITALITY SPECIALIST note, and I agree with the resident's findings and plan. I personally supervised and was present for the dillard/critical portions of the procedures. The medical decision-making was reviewed with the ASSISTANT STORE DIRECTOR/PA/Advanced Practice Nurse/Resident Physician. I agree with the documented findings, disposition and treatment plan as described except to the extent set forth below. Presents from dialysis and I did see the patient immediately upon arrival and also spoke with the paramedics and she looks good in the sense that she is speaking, breathing comfortably, skin color is good, no diaphoresis and 2 hours into her dialysis today developed chest pain. Radiation to the shoulder as well as shortness of breath and I did review her EKG which shows normal sinus rhythm with rate of 75 and without acute ischemic change and the patient does have testing ordered including labs, chest x-ray, monitoring and these results are pending and the patient will be admitted to the hospital for further evaluation of acute coronary syndrome. [id number]
[2018-07-02] MEDS ORDERED: Naloxone 0.4 MG/ML INJ IVP PRN (17:34)
[2018-07-02] MEDS ORDERED: D5% in Water 1,000 ML IVC PRN (17:37)
[2018-07-02] MEDS ORDERED: *HR* Dextrose 50 % in Water (Syg) 50 ML SYRINGE IVP PRN (17:37)
[2018-07-02] MEDS ORDERED: Dextrose Gel 15 GM/37.5 ML TUBE PO PRN ×2 (17:37)
[2018-07-02] MEDS ORDERED: Nitroglycerin 0.4 MG TAB.SUBL SL PRN ×2 (17:49→21:17)
[2018-07-02] MEDS ORDERED: Ipratropium/Albuterol Neb 3 ML IH PRN (17:57)
--- NOTE | 2018-07-02 17:58 | Internal Med History&Physical ---
Date of Encounter: 07/02/18 Time of Encounter: 17:35 Internal Medicine - H&P: HPI Chief complaint: chest pain Admitted From: Home Plans for Post Hospital Care: Home History of present illness: Ms. Mars is a 63 year old female with PMH of ESRD on HD, COPD on home oxygen, HTN, DM, HLD, CHF, DVT on anticoagulation, medical noncompliance who was sent to the ER from dialysis center for further evaluation of chest pain. Pt states she was in her usual state of health and went to her HD session, during dialysis, she started having sharp diffuse chest pain with radiation to the left arm which is what prompted her visit to the ER. Chest pain resolved spontaneously. She is currently resting comfortably in bed and denies any chest pain or shortness of breath. She was not able to complete today's dialysis session due to this episode of chest pain. She was recently admitted on 06/18/18 for the same complain and denied cardiac workup at that time. She is in agreement to pursuing nuclear stress testing at this time. She denies any fever, or chills. Ten point ROS is negative except as listed above. Past Med Surg Social Fam HX - Past Medical History Medical history: arthritis, CHF, COPD, DVT, diabetes, dialysis, GERD, hyperlipidemia, hypertension, migraine, osteoporosis, renal disease, thyroid disease, TIA Additional medical history: sleep apnea Psychiatric history: anxiety, depression - Past Surgical History Surgical History: appendectomy, hysterectomy, orthopedic, other, IVC filter Additional surgical history: carpal tunnel surgery left hand. perma cath change 2 to 3 weeks ago - Social History Smoking Status: Former smoker Smokeless Tobacco Status: No Alcohol use: occasionally Drug use: none - Family History Father Adopted: No Family Member Ethnicity: Non- Living Status: Hx Family Cardiac Disorders: Yes (CHF, HTN) Hx Family GI Disorders: No Hx Family Endocrine Disorder: Yes (DM) Hx Family Neurologic Disorders: Yes Brother Family Member Ethnicity: Non- Living Status: Hx Family Cardiac Disorders: Yes (CHF, MD) Hx Family Endocrine Disorder: Yes (DMII) Sister Family Member Ethnicity: Non- Living Status: Hx Family Cardiac Disorders: Yes (CHF) Hx Family Endocrine Disorder: Yes (DM) Mother Adopted: No Family Member Ethnicity: Non- Living Status: Hx Family Cardiac Disorders: Yes (father CHF) Hx Family Respiratory Disorders: No Hx Family Cancer: Yes (mother liver) Hx Family GI Disorders: No Hx Family Endocrine Disorder: Yes (DM/thyroid disease brothers and sisters) Hx Family Neuromuscular Disorders: No Hx Family Neurologic Disorders: No Hx Family HEENT Disorders: No Hx Family Autoimmune Disorders: Yes (brother lupus) Internal Medicine - H&P: Meds DiphenhydraMINE [Benadryl] 25 mg PO TID PRN 03/22/15 [History] Exenatide Microspheres [Bydureon Pen] 2 mg SQ WE 03/22/15 [History] Nitroglycerin [Nitrostat] 0.4 mg SL Q5M PRN 03/22/15 [History] Promethazine [Phenergan] 25 mg PO TID PRN 03/22/15 [History] clonazePAM [Klonopin] 1 mg PO HS 03/22/15 [History] Albuterol Neb [AccuNeb] 1.25 mg IH QID 05/06/16 [History] Omeprazole [PriLOSEC] 40 mg PO DAILY@0730 11/10/16 [History] Gabapentin [Neurontin] 100 mg PO TID #90 capsule 11/27/16 [Rx] Albuterol Sulfate [Ventolin Hfa] 2 puff IH Q4H PRN 08/12/17 [History] Cyclobenzaprine [Flexeril] 10 mg PO TID 08/12/17 [History] Docusate [Colace] 100 mg PO TID 08/12/17 [History] Doxepin HCl 50 mg PO HS 08/12/17 [History] Insulin ASPART [Novolog Flexpen] 32 unit SQ TIDWM 08/12/17 [History] Levothyroxine Sodium [Levoxyl] 250 mcg PO DAILY@0630 08/12/17 [History] hydrOXYzine HCl [Hydroxyzine HCl] 25 mg PO TID PRN 08/12/17 [History] Ergocalciferol (VITAMIN D2) [Vitamin D2] 50,000 unit PO WE 09/23/17 [History] Furosemide [Lasix] 20 mg PO 1300 09/23/17 [History] Isosorbide MONOnitrate [Isosorbide Mononitrate ER] 30 mg PO DAILY 12/26/17 [History] Rosuvastatin Calcium [Crestor] 10 mg PO QPM 12/26/17 [History] Collagenase Oint [Santyl] 1 appl TP DAILY 04/15/18 [History] Acetaminophen [Tylenol] 1,000 mg PO TID 06/18/18 [History] Allopurinol [Zyloprim 300 MG] 300 mg PO DAILY 06/18/18 [History] Amlodipine Besylate 10 mg PO HS 06/18/18 [History] Apixaban [Eliquis] 5 mg PO BID 06/18/18 [History] Calcium Acetate [Phoslyra] 5 ml PO TIDWM 06/18/18 [History] Furosemide [Lasix] 20 mg PO 1600,2100 06/18/18 [History] Furosemide [Lasix] 40 mg PO 0800 06/18/18 [History] Insulin Glargine,Hum.rec.anlog [Lantus Solostar] 80 unit SQ BID 06/18/18 [History] Meclizine HCl [Verticalm] 25 mg PO TID PRN 06/18/18 [History] Metoprolol Succinate [Toprol Xl] 25 mg PO DAILY 06/18/18 [History] Azithromycin [Zithromax] 500 mg PO DAILY #3 tablet 06/20/18 [Rx] Budesonide/Formoterol 160/4.5 [Symbicort 160/4.5] 2 puff IH BIDR #1 inh 06/20/18 [Rx] Nystatin POWDER [Nystop] 1 appl TP TID #1 bottle 06/20/18 [Rx] Allergy/AdvReac Type Severity Reaction Status Date / Time aspirin Allergy Hives Verified 06/18/18 08:47 cephalexin [From Keflex] Allergy Difficulty Verified 06/18/18 08:47 Breathing Cortisone Allergy See Verified 06/18/18 08:47 Comments ibuprofen Allergy Hives Verified 06/18/18 08:47 Iodinated Contrast- Oral and Allergy See Verified 06/18/18 08:47 IV Dye Comments [Iodinated Contrast Media - IV Dye] lidocaine [From Xylocaine] Allergy See Verified 06/18/18 08:47 Comments loratadine [From Claritin] Allergy Hives Verified 06/18/18 08:47 Penicillins Allergy See Verified 06/18/18 15:43 Comments Procaine [From Novocain] Allergy See Verified 06/18/18 08:47 Comments propoxyphene [From Darvon] Allergy See Verified 06/18/18 08:47 Comments pseudoephedrine Allergy Hives Verified 06/18/18 08:47 [From Sudafed] ropinirole [From Requip] Allergy Hallucinati Verified 06/18/18 15:43 ng albuterol AdvReac Shakiness Verified 06/18/18 08:47 ceftriaxone [From Rocephin] AdvReac See Verified 06/18/18 08:47 Comments clindamycin AdvReac Hypotension Verified 06/18/18 08:47 codeine AdvReac Hypertensio Verified 06/18/18 08:47 n doxycycline AdvReac Confusion Verified 06/18/18 15:43 famotidine AdvReac See Verified 06/18/18 08:47 Comments hydrocodone AdvReac See Verified 06/18/18 08:47 Comments hydrocortisone AdvReac Hypertensio Verified 06/18/18 08:47 n ipratropium AdvReac See Verified 06/18/18 08:47 Comments methylprednisolone AdvReac Hypertensio Verified 06/18/18 08:47 [From Solu-Medrol] n Neomycin AdvReac See Verified 06/18/18 08:47 Comments NSAIDS (Non-Steroidal AdvReac See Verified 06/18/18 08:47 Anti-Inflamma Comments prednisone AdvReac Hypertensio Verified 06/18/18 08:47 n Sulfa (Sulfonamide AdvReac See Verified 06/18/18 08:47 Antibiotics) Comments terfenadine AdvReac See Verified 06/18/18 08:47 Comments tramadol AdvReac See Verified 06/18/18 08:47 Comments All Systems PM: A 10-system review of systems was performed and is negative for pertinent findings except as documented above in the HPI. Review of systems: Ten point ROS is negative except as listed above - Constitutional Vitals: Temp Pulse Resp BP Pulse Ox 97.9 F 76 18 116/70 97 07/02/18 13:14 07/02/18 17:35 07/02/18 17:35 07/02/18 17:35 07/02/18 17:35 Exam: General: No acute distress, AAO x 3, morbid obesity HEENT: EOMI, PERRLA, NC/AT, no scleral icterus Respiratory: Clear to auscultate bilaterally, no wheezing, no rales Cardiovascular: Regular, Rate, Rhythm, No murmurs GI: Soft, Non tender, non distended, normal bowel sounds Ext: chronic venous stasis in bilateral LE, no tenderness, positive pulses Neuro: AAO x 3, no focal deficits, CN II-XII grossly intact Rest of the clinical exam is noncontributory Internal Med - H&P Results - Labs CBC & Chem 7: 07/02/18 13:37 07/02/18 13:37 Labs: Short CBC 07/02/18 Range/Units 13:37 WBC 6.5 (4.3-11.1) K/mcL Hgb 10.2 L (11.5-15.4) g/dL Hct 34.7 L (35.3-44.9) % Plt Count 206 (140-400) K/mcL Neutrophils # 4.5 (1.6-8.9) K/mcL BMP 07/02/18 13:37 Sodium 139 Potassium 4.0 Chloride 99 Carbon Dioxide 25 BUN 35 H Creatinine 3.52 H Glucose 172 H Calcium 8.0 L Cardiac Enzymes 07/02/18 Range/Units 13:37 Troponin I 0.03 (< 0.04) ng/mL - Impressions ITS Impressions Chest X-Ray 07/02/18 13:15 IMPRESSION: 1. Pulmonary edema. D/ / Dayne Cantor MD / Dayne Cantor MD Interpreting Provider: Dayne Cantor MD - Summary of Assessment and Plan Summary of Assessment and Plan: Ms. Mars is a 63 year old female with PMH of ESRD on HD, COPD on home oxygen, HTN, DM, HLD, DVT on anticoagulation, medical noncompliance who was sent to the ER from dialysis center for further evaluation of chest pain. Assessment/Plan: 1. Chest pain admit under observation to rule out ACS 2D echo reviewed EKG reviewed, no ST segment changes reported f/u serial TNI nuclear stress test in am pt reported of having an aspirin allergy cardiology evaluation requested NPO after midnight tele monitoring f/u lipid panel nitro SL prn chest pain 2. ESRD On HD nephro evaluation requested continue pt's outpatient HD schedule 3. DM Sliding scale insulin algorithm monitor fingerstick and blood glucose ADA diet Chronic Co-morbidities: HTN, HLD, DVT, COPD continue home medications after verification LOS < 2 midnights Care plan discussed with patient/RN - Time Spent With Patient Total time spent is greater than 50% in coordination of care (as documented) at patient's floor/unit and/or counseling patient:
[2018-07-02 18:26] LABS: Chol/HDL Ratio 2.9 (0-4.9)
[2018-07-02] MEDS: Insulin LISPRO 300 UNITS/3 ML VIAL SQ SCH (18:54)
[2018-07-02] MEDS ORDERED: Insulin LISPRO 300 UNITS/3 ML VIAL SQ SCH (21:00)
[2018-07-02] MEDS ORDERED: Ammonium Lactate 30 APPL/225 GM BOTTLE TP PRN (21:17)
[2018-07-02] MEDS ORDERED: Nystatin POWDER 30 GM BOTTLE TP PRN (22:08)
[2018-07-02] MEDS: Budesonide/Formoterol 160/4.5 1 PUFF INH IH SCH (22:13)
[2018-07-02] MEDS ORDERED: hydrOXYzine pamoate 25 MG CAPSULE PO PRN (22:13)
[2018-07-02] MEDS ORDERED: amLODIPine 5 MG TABLET PO SCH (22:15)
[2018-07-02] MEDS ORDERED: Isosorbide MONOnitrate (24 HR) 30 MG TAB.ER.24H PO SCH (22:15)
[2018-07-02] MEDS: Gabapentin 100 MG CAPSULE PO SCH (22:21)
[2018-07-03] MEDS ORDERED: clonazePAM 1 MG TABLET PO PRN (00:58)
[2018-07-03 04:36] LABS: Basophils % 0.4 %; Eosinophils # 0.2 K/mcL (0.0-0.6); Eosinophils % 3.7 %; Hematocrit 29.6 % (35.3-44.9); Hemoglobin 8.8 g/dL (11.5-15.4); Immature Granulocytes % 0.4 % (0-4); Lymphocytes # 1.3 K/mcL (0.6-4.6); Lymphocytes % 22.8 %; Mean Corpuscular HGB Conc 29.7 g/dL (31.6-35.5); Mean Corpuscular Volume 104.2 fL (83.0-100.0); Monocytes # 0.5 K/mcL (0.0-1.3); Monocytes % 9.2 %; Neutrophils # 3.6 K/mcL (1.6-8.9); Platelet Count 184 K/mcL (140-400); Red Blood Count 2.84 M/mcL (3.82-4.97); Red Cell Distribution Width 16.1 % (11.5-14.5); Segmented Neutrophils % 63.5 %
[2018-07-03 04:55] LABS: Calcium 8.1 mg/dL (8.6-10.3); Magnesium 1.8 mg/dL (1.6-2.6); Phosphorous 5.8 mg/dL (2.7-4.5); Potassium 4.2 mEq/L (3.5-5.1)
[2018-07-03] MEDS ORDERED: Regadenoson 0.4 MG/5 ML SYRINGE IVP ONE (05:59)
[2018-07-03] MEDS: Budesonide/Formoterol 160/4.5 1 PUFF INH IH SCH (07:46)
[2018-07-03] MEDS: Gabapentin 100 MG CAPSULE PO SCH (08:40)
[2018-07-03] MEDS: Insulin LISPRO 300 UNITS/3 ML VIAL SQ SCH ×2 (08:41→12:13)
[2018-07-03] MEDS ORDERED: Metoprolol XL (24 HR) Succ 25 MG TAB.ER.24H PO SCH (09:00)
[2018-07-03] MEDS ORDERED: Apixaban 5 MG TABLET PO SCH (09:00)
--- NOTE | 2018-07-03 09:37 | Cardiology Consult Note ---
<Marii Thomson - Last Filed: 07/03/18 09:35> Date of Encounter: 07/03/18 Time of Encounter: 09:00 Assessment and Plan (1) Chest pain Current Visit: No Status: Acute Atypical chest pain symptoms, ECG without ischemic changes. Troponin negative x3. Continues to refuse nuclear stress test due to "passing out" 8-10 years ago. Recent TTE (06/18/18) demonstrated preserved LVEF, 65%. Discussed possible asa desensitization, however declines as well. Would not recommend elective LHC if patient continues to decline asa desensitization. Continue statin, BB, and nitrates. On Eliquis for DVT. No further recommendations as inpatient from Cardiology. Recommend close outpt follow-up with PCP Qualifiers: Chest pain type: precordial pain Qualified Code(s): R07.2 - Precordial pain Discussion w patient/family: The assessment and plan as outlined above was discussed with the patient and/or family members who expressed understanding and agreement. All questions were answered. Thank you for involving us in the care of your patient. Please call with any questions. The patient will be discussed and reviewed with Dr. Christianson; changes to be made accordingly. History of Present Illness Consult date: 07/03/18 Requesting physician: Lorena Kaur Consult reason: Chest pain Chief complaint: Chest pain History of present illness: Ms. Mars is a 63 year old female PMH of ESRD on HD, COPD on home oxygen, HTN, DM, and HLD who presented to the ED from outpatient HD due to episode of sharp right sided chest pain, she reports pain radiated to right shoulder, lasted around 30 minutes and resolved spontaneously. She also reports pleuritic chest discomfort that occurs with coughing. Reports was in her normal state of health prior to event. Denies flu-like symptoms, dyspnea, syncope, or palpitations. She has historically refused stress testing and ASA desensitization. Cardiology consulted today for chest pain. She refused nuclear stress test this AM due to hx of "passing out" with stress test 8-10 years ago. She has no complaints upon exam today. Past Med Surg Social Fam HX - Past Medical History Attestation: Yes The following information was validated with the patient. Source: patient Medical history: arthritis, COPD, DVT, diabetes, dialysis, GERD, hyperlipidemia, hypertension, migraine, osteoporosis, renal disease, thyroid disease, TIA Additional medical history: sleep apnea Psychiatric history: anxiety, depression - Past Surgical History Surgical History: appendectomy, hysterectomy, orthopedic, other, IVC filter Additional surgical history: carpal tunnel surgery left hand. perma cath change 2 to 3 weeks ago - Social History Smoking Status: Former smoker Smokeless Tobacco Status: No Alcohol use: occasionally Drug use: none - Family History Father Adopted: No Family Member Ethnicity: Non- Living Status: Hx Family Cardiac Disorders: Yes (CHF, HTN) Hx Family GI Disorders: No Hx Family Endocrine Disorder: Yes (DM) Hx Family Neurologic Disorders: Yes Brother Family Member Ethnicity: Non- Living Status: Hx Family Cardiac Disorders: Yes (CHF, VA) Hx Family Endocrine Disorder: Yes (DMII) Sister Family Member Ethnicity: Non- Living Status: Hx Family Cardiac Disorders: Yes (CHF) Hx Family Endocrine Disorder: Yes (DM) Mother Adopted: No Family Member Ethnicity: Non- Living Status: Hx Family Cardiac Disorders: Yes (father CHF) Hx Family Respiratory Disorders: No Hx Family Cancer: Yes (mother liver) Hx Family GI Disorders: No Hx Family Endocrine Disorder: Yes (DM/thyroid disease brothers and sisters) Hx Family Neuromuscular Disorders: No Hx Family Neurologic Disorders: No Hx Family HEENT Disorders: No Hx Family Autoimmune Disorders: Yes (brother lupus) Medications and Allergies DiphenhydraMINE [Benadryl] 25 mg PO TID PRN 03/22/15 [History] Exenatide Microspheres [Bydureon Pen] 2 mg SQ WE 03/22/15 [History] Nitroglycerin [Nitrostat] 0.4 mg SL Q5M PRN 03/22/15 [History] Promethazine [Phenergan] 25 mg PO TID PRN 03/22/15 [History] clonazePAM [Klonopin] 1 mg PO HS PRN 03/22/15 [History] Albuterol Neb [AccuNeb] 1.25 mg IH QID 05/06/16 [History] Omeprazole [PriLOSEC] 40 mg PO DAILY 11/10/16 [History] Gabapentin [Neurontin] 100 mg PO TID #90 capsule 11/27/16 [Rx] Albuterol Sulfate [Ventolin Hfa] 2 puff IH Q4H PRN 08/12/17 [History] Cyclobenzaprine [Flexeril] 10 mg PO TID PRN 08/12/17 [History] Docusate [Colace] 100 mg PO TID PRN 08/12/17 [History] Doxepin HCl 50 mg PO HS 08/12/17 [History] Insulin ASPART [Novolog Flexpen] 32 unit SQ TIDWM 08/12/17 [History] Levothyroxine Sodium [Levoxyl] 250 mcg PO QAM 08/12/17 [History] hydrOXYzine HCl [Hydroxyzine HCl] 25 mg PO TID PRN 08/12/17 [History] Ergocalciferol (VITAMIN D2) [Vitamin D2] 50,000 unit PO WE 09/23/17 [History] Furosemide [Lasix] 20 mg PO 1300 09/23/17 [History] Isosorbide MONOnitrate [Isosorbide Mononitrate ER] 30 mg PO HS 12/26/17 [Hi story] Rosuvastatin Calcium [Crestor] 10 mg PO QPM 12/26/17 [History] Collagenase Oint [Santyl] 1 appl TP DAILY 04/15/18 [History] Acetaminophen [Tylenol] 1,000 mg PO TID 06/18/18 [History] Allopurinol [Zyloprim 300 MG] 300 mg PO DAILY 06/18/18 [History] Amlodipine Besylate 10 mg PO HS 06/18/18 [History] Apixaban [Eliquis] 5 mg PO BID 06/18/18 [History] Calcium Acetate [Phoslyra] 5 ml PO TIDWM 06/18/18 [History] Furosemide [Lasix] 20 mg PO 2200 06/18/18 [History] Furosemide [Lasix] 40 mg PO QAM 06/18/18 [History] Insulin Glargine,Hum.rec.anlog [Lantus Solostar] 80 unit SQ BID 06/18/18 [History] Meclizine HCl [Verticalm] 25 mg PO TID PRN 06/18/18 [History] Metoprolol Succinate [Toprol Xl] 25 mg PO DAILY 06/18/18 [History] Ammonium Lactate [Sachi-Hydrolac] 1 appl TP BID PRN 07/02/18 [History] Budesonide/Formoterol 160/4.5 [Symbicort 160/4.5] 2 puff IH BID 07/02/18 [History] Nystatin POWDER [Nystop] 1 appl TP TID PRN 07/02/18 [History] Allergy/AdvReac Type Severity Reaction Status Date / Time aspirin Allergy Hives Verified 06/18/18 08:47 cephalexin [From Keflex] Allergy Difficulty Verified 06/18/18 08:47 Breathing Cortisone Allergy See Verified 06/18/18 08:47 Comments ibuprofen Allergy Hives Verified 06/18/18 08:47 Iodinated Contrast- Oral and Allergy See Verified 06/18/18 08:47 IV Dye Comments [Iodinated Contrast Media - IV Dye] lidocaine [From Xylocaine] Allergy See Verified 06/18/18 08:47 Comments loratadine [From Claritin] Allergy Hives Verified 06/18/18 08:47 Penicillins Allergy See Verified 06/18/18 15:43 Comments Procaine [From Novocain] Allergy See Verified 06/18/18 08:47 Comments propoxyphene [From Darvon] Allergy See Verified 06/18/18 08:47 Comments pseudoephedrine Allergy Hives Verified 06/18/18 08:47 [From Sudafed] ropinirole [From Requip] Allergy Hallucinati Verified 06/18/18 15:43 ng albuterol AdvReac Shakiness Verified 06/18/18 08:47 ceftriaxone [From Rocephin] AdvReac See Verified 06/18/18 08:47 Comments clindamycin AdvReac Hypotension Verified 06/18/18 08:47 codeine AdvReac Hypertensio Verified 06/18/18 08:47 n doxycycline AdvReac Confusion Verified 06/18/18 15:43 famotidine AdvReac See Verified 06/18/18 08:47 Comments hydrocodone AdvReac See Verified 06/18/18 08:47 Comments hydrocortisone AdvReac Hypertensio Verified 06/18/18 08:47 n ipratropium AdvReac See Verified 06/18/18 08:47 Comments methylprednisolone AdvReac Hypertensio Verified 06/18/18 08:47 [From Solu-Medrol] n Neomycin AdvReac See Verified 06/18/18 08:47 Comments NSAIDS (Non-Steroidal AdvReac See Verified 06/18/18 08:47 Anti-Inflamma Comments prednisone AdvReac Hypertensio Verified 06/18/18 08:47 n Sulfa (Sulfonamide AdvReac See Verified 06/18/18 08:47 Antibiotics) Comments terfenadine AdvReac See Verified 06/18/18 08:47 Comments tramadol AdvReac See Verified 06/18/18 08:47 Comments All Systems Review: The remainder of the systems were reviewed and are negative - Cardiovascular Cardiovascular: as per HPI Physical Examination Vital Signs, Last 4 Hours Temp Pulse Resp BP Pulse Ox 07/03/18 07:46 20 97 07/03/18 07:00 98.4 F 81 17 135/65 95 General: Conversant, Other (morbidly obese) HEENT: Atraumatic, Normocephaly Cardiac: Reg Rate and Rhythm, Normal S1 and S2 Lungs: Other (Decreased) Neuro: Alert and responsive Abdomen: Soft Skin: No rashes noted on visualized skin Musculoskeletal: Other (reproducible chest wall pain) Extremities: Other (non-pitting LE edema) Results 07/03/18 04:20 07/03/18 04:20 Lab Results 07/02/18 07/02/18 07/02/18 13:37 13:37 19:30 WBC 6.5 Hgb 10.2 L Hct 34.7 L Plt Count 206 Sodium 139 Potassium 4.0 Chloride 99 Carbon Dioxide 25 BUN 35 H Creatinine 3.52 H Glucose 172 H Calcium 8.0 L Magnesium Troponin I 0.03 0.03 07/03/18 07/03/18 07/03/18 04:20 04:20 04:20 WBC 5.7 Hgb 8.8 L Hct 29.6 L Plt Count 184 Sodium 141 Potassium 4.2 Chloride 100 Carbon Dioxide 27 BUN 40 H Creatinine 3.96 H Glucose 141 H Calcium 8.1 L Magnesium 1.8 Troponin I 0.03 Impressions Chest X-Ray 07/02/18 13:15 IMPRESSION: 1. Pulmonary edema. D/ / Dayne Cantor MD / Dayne Cantor MD Interpreting Provider: Dayne Cantor MD Active Medications Acetaminophen (Tylenol) 1,000 mg PO TID [facility] Stop: 01/02/19 09:01 Last Admin: 07/03/18 08:40 Dose: 1,000 mg Documented by: Albuterol Sulfate (Albuterol Inhaler) 2 puff IH [id number] PRN PRN Reason: Shortness Of Breath Stop: 01/01/19 22:06 Albuterol/Ipratropium (Duoneb) 3 ml IH [id number] PRN PRN Reason: Shortness Of Breath/Wheezing Stop: 01/01/19 17:58 Amlodipine Besylate (Norvasc) 10 mg PO [facility] Stop: 01/01/19 22:16 Last Admin: 07/02/18 22:21 Dose: 10 mg Documented by: Apixaban (Eliquis) 5 mg PO BID [facility] Stop: 01/02/19 09:01 Last Admin: 07/03/18 08:40 Dose: 5 mg Documented by: Atorvastatin Calcium (Lipitor) 20 mg PO HS [facility] Stop: 01/02/19 21:01 Budesonide/Formoterol Fumarate (Symbicort) 2 puff IH BIDR [facility]; Protocol Stop: 01/01/19 22:16 Last Admin: 07/03/18 07:46 Dose: 2 puff Documented by: Clonazepam (Klonopin) 1 mg PO HS PRN PRN Reason: Anxiety Stop: 01/02/19 00:59 Last Admin: 07/03/18 01:21 Dose: 1 mg Documented by: Collagenase (Santyl) 1 appl TP [facility]; Protocol Stop: 01/02/19 21:01 Cyclobenzaprine HCl (Flexeril) 10 mg PO TID PRN PRN Reason: Muscle Spasm Stop: 01/01/19 21:18 Dextrose/Water (Dextrose 50% (Syg)) 25 ml IVP AD PRN PRN Reason: Hypoglycemia Stop: 01/01/19 17:38 Docusate Sodium (Colace) 100 mg PO TID PRN; Protocol PRN Reason: Constipation Stop: 01/01/19 21:18 Doxepin HCl (Sinequan) 50 mg PO [facility] Stop: 01/01/19 22:16 Last Admin: 07/02/18 22:21 Dose: 50 mg Documented by: Gabapentin (Neurontin) 100 mg PO TID [facility] Stop: 01/01/19 21:31 Last Admin: 07/03/18 08:40 Dose: 100 mg Documented by: Glucagon (Glucagen) 1 mg IM ONCE PRN PRN Reason: Hypoglycemia Stop: 01/01/19 17:38 Glucose (Gluctose) 15 gm PO ONCE PRN PRN Reason: Hypoglycemia Stop: 01/01/19 17:38 Glucose (Gluctose) 30 gm PO ONCE PRN PRN Reason: Hypoglycemia Stop: 01/01/19 17:38 Hydroxyzine Pamoate (Hydroxyzine Pamoate) 25 mg PO TID PRN PRN Reason: Anxiety Stop: 01/01/19 22:14 Dextrose (Dextrose 5%) 1,000 mls @ 100 mls/hr IVC .Q10H PRN PRN Reason: HYPOGLYCEMIA Stop: 01/01/19 17:38 Insulin Human Lispro (Humalog) 0 units SQ HS [facility]; Protocol Stop: 01/01/19 21:01 Last Admin: 07/02/18 22:05 Dose: Not Given Documented by: Insulin Human Lispro (Humalog) 0 units SQ TIDAC [facility]; Protocol Stop: 01/01/19 17:46 Last Admin: 07/03/18 08:41 Dose: Not Given Documented by: Isosorbide Mononitrate (Imdur) 30 mg PO HS [facility] Stop: 01/01/19 22:16 Last Admin: 07/02/18 22:21 Dose: 30 mg Documented by: Lactic Acid (Amlactin) 1 appl TP BID PRN PRN Reason: Skin Irritation Levothyroxine Sodium (Synthroid) 250 mcg PO 0630 [facility] Stop: 01/02/19 06:31 Last Admin: 07/03/18 04:57 Dose: 250 mcg Documented by: Meclizine HCl (Antivert) 25 mg PO TID PRN PRN Reason: DIZZINESS Stop: 01/01/19 22:13 Metoprolol Succinate (Toprol Xl) 25 mg PO DAILY [facility] Stop: 01/02/19 09:01 Last Admin: 07/03/18 08:40 Dose: 25 mg Documented by: Naloxone HCl (Narcan) 0.4 mg IVP Q2MPRN PRN PRN Reason: SEE COMMENTS Stop: 01/01/19 17:35 Nitroglycerin (Nitroglycerin) 0.4 mg SL Q5MPRN PRN PRN Reason: Chest Pain Stop: 01/01/19 17:50 Nystatin (Nystop) 1 appl TP TID PRN PRN Reason: REDNESS/ITCH Stop: 01/01/19 22:09 Omeprazole (Prilosec) 40 mg PO DAILY [facility] Stop: 01/02/19 09:01 Last Admin: 07/03/18 08:40 Dose: 40 mg Documented by: Promethazine HCl (Phenergan) 25 mg PO TID PRN PRN Reason: Nausea And Vomiting Stop: 01/01/19 22:10 - Imaging and Cardiology Echo: report reviewed - EKG Interpretation EKG results cardiology: personally reviewed Consult Discharge Plan - Plan Referrals: Mauro Dockery MD [Primary Care Provider] - <Shari Christianson - Last Filed: 07/03/18 10:24> Date of Encounter: 07/03/18 - Attending Attestation I examined this patient and my medical decision-making was reviewed with the [employer]. I agree with the documented findings, disposition and treatment plan. Ms. Mars presents with atypical chest pain. Troponins negative. No acute ECG findings. She refused stress testing this morning. Offered the option of LHC but she would require aspirin desensitization. Also would need GI workup for drop in blood count. She is very firm in her decision to decline asa desensitization or reconsider stress testing. Continue risk factor reduction and medical therapy. Signing off. Recommend outpatient follow up with PCP. Assessment and Plan Discussion w patient/family: The assessment and plan as outlined above was discussed with the patient and/or family members who expressed understanding and agreement. All questions were answered. Thank you for involving us in the care of your patient. Please call with any questions. History of Present Illness History of present illness: Ms. Mars is a 63 year old female All Systems Review: The remainder of the systems were reviewed and are negative Physical Examination Vital Signs, Last 4 Hours Temp Pulse Resp BP Pulse Ox 07/03/18 07:46 20 97 07/03/18 07:00 98.4 F 81 17 135/65 95 Results 07/03/18 04:20 07/03/18 04:20 Lab Results 07/02/18 07/02/18 07/02/18 13:37 13:37 19:30 WBC 6.5 Hgb 10.2 L Hct 34.7 L Plt Count 206 Sodium 139 Potassium 4.0 Chloride 99 Carbon Dioxide 25 BUN 35 H Creatinine 3.52 H Glucose 172 H Calcium 8.0 L Magnesium Troponin I 0.03 0.03 07/03/18 07/03/18 07/03/18 04:20 04:20 04:20 WBC 5.7 Hgb 8.8 L Hct 29.6 L Plt Count 184 Sodium 141 Potassium 4.2 Chloride 100 Carbon Dioxide 27 BUN 40 H Creatinine 3.96 H Glucose 141 H Calcium 8.1 L Magnesium 1.8 Troponin I 0.03
[2018-07-03 11:14] VITALS: BP 132/69
--- NOTE | 2018-07-03 11:34 | Physician Discharge Referral ---
Home Health/Hosp Referral Info Transfer to: Home Health Provider in Charge Post Discharge: PCP - Diagnosis (1) Chest pain Priority: Primary Status: Resolved (2) ESRD (end stage renal disease) on dialysis Priority: Secondary Status: Chronic (3) DM (diabetes mellitus), type 2 Priority: Secondary Status: Chronic (4) HTN (hypertension) Priority: Secondary Status: Chronic (5) History of DVT (deep vein thrombosis) Priority: Secondary Status: Chronic - Respiratory Orders Smoking Cessation: Smoking cessation has been advised. For more information, call the [place] Tobacco Quit Line at 4-725-OVQI-NOW. - Services Needed Following services are medically necessary services: Nursing, Home Health Aide, Physical Therapy, Occupational Therapy - Transfer Medications Home Medications: DiphenhydraMINE [Benadryl] 25 mg PO TID PRN 03/22/15 [History] Exenatide Microspheres [Bydureon Pen] 2 mg SQ WE 03/22/15 [History] Nitroglycerin [Nitrostat] 0.4 mg SL Q5M PRN 03/22/15 [History] Promethazine [Phenergan] 25 mg PO TID PRN 03/22/15 [History] clonazePAM [Klonopin] 1 mg PO HS PRN 03/22/15 [History] Albuterol Neb [AccuNeb] 1.25 mg IH QID 05/06/16 [History] Omeprazole [PriLOSEC] 40 mg PO DAILY 11/10/16 [History] Gabapentin [Neurontin] 100 mg PO TID #90 capsule 11/27/16 [Rx] Albuterol Sulfate [Ventolin Hfa] 2 puff IH Q4H PRN 08/12/17 [History] Cyclobenzaprine [Flexeril] 10 mg PO TID PRN 08/12/17 [History] Docusate [Colace] 100 mg PO TID PRN 08/12/17 [History] Doxepin HCl 50 mg PO HS 08/12/17 [History] Insulin ASPART [Novolog Flexpen] 32 unit SQ TIDWM 08/12/17 [History] Levothyroxine Sodium [Levoxyl] 250 mcg PO QAM 08/12/17 [History] hydrOXYzine HCl [Hydroxyzine HCl] 25 mg PO TID PRN 08/12/17 [History] Ergocalciferol (VITAMIN D2) [Vitamin D2] 50,000 unit PO WE 09/23/17 [History] Furosemide [Lasix] 20 mg PO 1300 09/23/17 [History] Isosorbide MONOnitrate [Isosorbide Mononitrate ER] 30 mg PO HS 12/26/17 [History] Rosuvastatin Calcium [Crestor] 10 mg PO QPM 12/26/17 [History] Collagenase Oint [Santyl] 1 appl TP DAILY 04/15/18 [History] Acetaminophen [Tylenol] 1,000 mg PO TID 06/18/18 [History] Allopurinol [Zyloprim 300 MG] 300 mg PO DAILY 06/18/18 [History] Amlodipine Besylate 10 mg PO HS 06/18/18 [History] Apixaban [Eliquis] 5 mg PO BID 06/18/18 [History] Calcium Acetate [Phoslyra] 5 ml PO TIDWM 06/18/18 [History] Furosemide [Lasix] 20 mg PO 2200 06/18/18 [History] Furosemide [Lasix] 40 mg PO QAM 06/18/18 [History] Insulin Glargine,Hum.rec.anlog [Lantus Solostar] 80 unit SQ BID 06/18/18 [History] Meclizine HCl [Verticalm] 25 mg PO TID PRN 06/18/18 [History] Metoprolol Succinate [Toprol Xl] 25 mg PO DAILY 06/18/18 [History] Ammonium Lactate [Sachi-Hydrolac] 1 appl TP BID PRN 07/02/18 [History] Budesonide/Formoterol 160/4.5 [Symbicort 160/4.5] 2 puff IH BID 07/02/18 [History] Nystatin POWDER [Nystop] 1 appl TP TID PRN 07/02/18 [History] Allergies/Adverse Reactions: Allergy/AdvReac Type Severity Reaction Status Date / Time aspirin Allergy Hives Verified 06/18/18 08:47 cephalexin [From Keflex] Allergy Difficulty Verified 06/18/18 08:47 Breathing Cortisone Allergy See Verified 06/18/18 08:47 Comments ibuprofen Allergy Hives Verified 06/18/18 08:47 Iodinated Contrast- Oral and Allergy See Verified 06/18/18 08:47 IV Dye Comments [Iodinated Contrast Media - IV Dye] lidocaine [From Xylocaine] Allergy See Verified 06/18/18 08:47 Comments loratadine [From Claritin] Allergy Hives Verified 06/18/18 08:47 Penicillins Allergy See Verified 06/18/18 15:43 Comments Procaine [From Novocain] Allergy See Verified 06/18/18 08:47 Comments propoxyphene [From Darvon] Allergy See Verified 06/18/18 08:47 Comments pseudoephedrine Allergy Hives Verified 06/18/18 08:47 [From Sudafed] ropinirole [From Requip] Allergy Hallucinati Verified 06/18/18 15:43 ng albuterol AdvReac Shakiness Verified 06/18/18 08:47 ceftriaxone [From Rocephin] AdvReac See Verified 06/18/18 08:47 Comments clindamycin AdvReac Hypotension Verified 06/18/18 08:47 codeine AdvReac Hypertensio Verified 06/18/18 08:47 n doxycycline AdvReac Confusion Verified 06/18/18 15:43 famotidine AdvReac See Verified 06/18/18 08:47 Comments hydrocodone AdvReac See Verified 06/18/18 08:47 Comments hydrocortisone AdvReac Hypertensio Verified 06/18/18 08:47 n ipratropium AdvReac See Verified 06/18/18 08:47 Comments methylprednisolone AdvReac Hypertensio Verified 06/18/18 08:47 [From Solu-Medrol] n Neomycin AdvReac See Verified 06/18/18 08:47 Comments NSAIDS (Non-Steroidal AdvReac See Verified 06/18/18 08:47 Anti-Inflamma Comments prednisone AdvReac Hypertensio Verified 06/18/18 08:47 n Sulfa (Sulfonamide AdvReac See Verified 06/18/18 08:47 Antibiotics) Comments terfenadine AdvReac See Verified 06/18/18 08:47 Comments tramadol AdvReac See Verified 06/18/18 08:47 Comments Certification: Further, I certify that my clinical findings support that this patient is homebound (i.e. absences from home require considerable and taxing effort and are for medical reasons or [employer] services or infrequently or short duration when for other reasons) because: Homebound Reason: Patient requires assistance of a person or device to safely leave home Attestation: My signature below is to certify that this patient is under my care and that I, or nurse practitioner, or a physician's rn first assistant working with me, has a [id number] encounter with this patient.
--- NOTE | 2018-07-03 11:38 | Discharge Summary ---
- NOTES TO OUTPATIENT PROVIDER Notes to Outpatient Provider: Pt was admitted for chest pain, refused stress test, cardiology recommended outpatient follow up. Chest pain spontaneously resolved and pt continues to have recurrent hospitalizations for the same complain and continues to refuse cardiac workup. Date of Encounter: 07/03/18 Time of Encounter: 11:34 - Discharge Diagnosis (1) Chest pain Priority: Primary Status: Resolved Qualifiers: Chest pain type: unspecified Qualified Code(s): R07.9 - Chest pain, unspecified (2) ESRD (end stage renal disease) on dialysis Priority: Secondary Status: Chronic (3) DM (diabetes mellitus), type 2 Priority: Secondary Status: Chronic Qualifiers: Diabetes mellitus residential insulin use: with residential use Diabetes m ellitus complication status: with hyperglycemia Qualified Code(s): E11.65 - Type 2 diabetes mellitus with hyperglycemia; Z79.4 - FDC (current) use of insulin (4) HTN (hypertension) Priority: Secondary Status: Chronic Qualifiers: Hypertension type: essential hypertension Qualified Code(s): I10 - Essential (primary) hypertension (5) History of DVT (deep vein thrombosis) Priority: Secondary Status: Chronic Hospital course: Ms. Mars is a 63 year old female with PMH of ESRD on HD, COPD on home oxygen, HTN, DM, HLD, CHF, DVT on anticoagulation, medical noncompliance who was admitted for evaluation of chest pain. Pt had no acute EKG changes and refused nuclear stress test. Serial troponins remained negative and pt's chest pain abruptly resolved. Pt was evaluated by cardiology and outpatient follow up was recommended. Pt has history of medical noncompliance and refusal of necessary testing and medical treatment. Extensive counseling was provided in regards to medical compliance. She was admitted for the same compliant on 06/18/18 and had refused stress test at that time as well. Pt is currently chest pain free and medically stable for discharge to home with outpatient follow up with PCP and cardiology. Pt is to continue HD as per outpatient schedule. Pt was seen and examined on the day of discharge. Discharge discussed with: patient, nurse, social work, case management - Time Spent with Patient Total time spent providing and/or coordinating discharge services: 25 minutes Time spent: Less than 30 minutes, Greater than 30 minutes - Discharge Medications Prescriptions: Continued DiphenhydraMINE [Benadryl] 25 mg PO TID PRN PRN Reason: Itching Promethazine [Phenergan] 25 mg PO TID PRN PRN Reason: Nausea And Vomiting Nitroglycerin [Nitrostat] 0.4 mg SL Q5M PRN PRN Reason: Chest Pain Exenatide Microspheres [Bydureon Pen] 2 mg SQ WE clonazePAM [Klonopin] 1 mg PO HS PRN PRN Reason: Anxiety Albuterol Neb [AccuNeb] 1.25 mg IH QID Omeprazole [PriLOSEC] 40 mg PO DAILY Gabapentin [Neurontin] 100 mg PO TID #90 capsule Cyclobenzaprine [Flexeril] 10 mg PO TID PRN PRN Reason: Muscle Spasm Albuterol Sulfate [Ventolin Hfa] 2 puff IH Q4H PRN PRN Reason: Shortness Of Breath Docusate [Colace] 100 mg PO TID PRN PRN Reason: Constipation Doxepin HCl 50 mg PO HS hydrOXYzine HCl [Hydroxyzine HCl] 25 mg PO TID PRN PRN Reason: Anxiety Insulin ASPART [Novolog Flexpen] 32 unit SQ TIDWM Levothyroxine Sodium [Levoxyl] 250 mcg PO QAM Ergocalciferol (VITAMIN D2) [Vitamin D2] 50,000 unit PO WE Furosemide [Lasix] 20 mg PO 1300 Isosorbide MONOnitrate [Isosorbide Mononitrate ER] 30 mg PO HS Rosuvastatin Calcium [Crestor] 10 mg PO QPM Collagenase Oint [Santyl] 1 appl TP DAILY Insulin Glargine,Hum.rec.anlog [Lantus Solostar] 80 unit SQ BID Acetaminophen [Tylenol] 1,000 mg PO TID Allopurinol [Zyloprim 300 MG] 300 mg PO DAILY Apixaban [Eliquis] 5 mg PO BID Amlodipine Besylate 10 mg PO HS Calcium Acetate [Phoslyra] 5 ml PO TIDWM Furosemide [Lasix] 20 mg PO 2200 Furosemide [Lasix] 40 mg PO QAM Meclizine HCl [Verticalm] 25 mg PO TID PRN PRN Reason: Dizziness Metoprolol Succinate [Toprol Xl] 25 mg PO DAILY Budesonide/Formoterol 160/4.5 [Symbicort 160/4.5] 2 puff IH BID Nystatin POWDER [Nystop] 1 appl TP TID PRN PRN Reason: REDNESS/ITCH Ammonium Lactate [Sachi-Hydrolac] 1 appl TP BID PRN PRN Reason: Skin Irritation Home Medications: DiphenhydraMINE [Benadryl] 25 mg PO TID PRN 03/22/15 [History] Exenatide Microspheres [Bydureon Pen] 2 mg SQ WE 03/22/15 [History] Nitroglycerin [Nitrostat] 0.4 mg SL Q5M PRN 03/22/15 [History] Promethazine [Phenergan] 25 mg PO TID PRN 03/22/15 [History] clonazePAM [Klonopin] 1 mg PO HS PRN 03/22/15 [History] Albuterol Neb [AccuNeb] 1.25 mg IH QID 05/06/16 [History] Omeprazole [PriLOSEC] 40 mg PO DAILY 11/10/16 [History] Gabapentin [Neurontin] 100 mg PO TID #90 capsule 11/27/16 [Rx] Albuterol Sulfate [Ventolin Hfa] 2 puff IH Q4H PRN 08/12/17 [History] Cyclobenzaprine [Flexeril] 10 mg PO TID PRN 08/12/17 [History] Docusate [Colace] 100 mg PO TID PRN 08/12/17 [History] Doxepin HCl 50 mg PO HS 08/12/17 [History] Insulin ASPART [Novolog Flexpen] 32 unit SQ TIDWM 08/12/17 [History] Levothyroxine Sodium [Levoxyl] 250 mcg PO QAM 08/12/17 [History] hydrOXYzine HCl [Hydroxyzine HCl] 25 mg PO TID PRN 08/12/17 [History] Ergocalciferol (VITAMIN D2) [Vitamin D2] 50,000 unit PO WE 09/23/17 [History] Furosemide [Lasix] 20 mg PO 1300 09/23/17 [History] Isosorbide MONOnitrate [Isosorbide Mononitrate ER] 30 mg PO HS 12/26/17 [History] Rosuvastatin Calcium [Crestor] 10 mg PO QPM 12/26/17 [History] Collagenase Oint [Santyl] 1 appl TP DAILY 04/15/18 [History] Acetaminophen [Tylenol] 1,000 mg PO TID 06/18/18 [History] Allopurinol [Zyloprim 300 MG] 300 mg PO DAILY 06/18/18 [History] Amlodipine Besylate 10 mg PO HS 06/18/18 [History] Apixaban [Eliquis] 5 mg PO BID 06/18/18 [History] Calcium Acetate [Phoslyra] 5 ml PO TIDWM 06/18/18 [History] Furosemide [Lasix] 20 mg PO 2200 06/18/18 [History] Furosemide [Lasix] 40 mg PO QAM 06/18/18 [History] Insulin Glargine,Hum.rec.anlog [Lantus Solostar] 80 unit SQ BID 06/18/18 [History] Meclizine HCl [Verticalm] 25 mg PO TID PRN 06/18/18 [History] Metoprolol Succinate [Toprol Xl] 25 mg PO DAILY 06/18/18 [History] Ammonium Lactate [Sachi-Hydrolac] 1 appl TP BID PRN 07/02/18 [History] Budesonide/Formoterol 160/4.5 [Symbicort 160/4.5] 2 puff IH BID 07/02/18 [History] Nystatin POWDER [Nystop] 1 appl TP TID PRN 07/02/18 [History] Allergies/Adverse Reactions: Allergy/AdvReac Type Severity Reaction Status Date / Time aspirin Allergy Hives Verified 06/18/18 08:47 cephalexin [From Keflex] Allergy Difficulty Verified 06/18/18 08:47 Breathing Cortisone Allergy See Verified 06/18/18 08:47 Comments ibuprofen Allergy Hives Verified 06/18/18 08:47 Iodinated Contrast- Oral and Allergy See Verified 06/18/18 08:47 IV Dye Comments [Iodinated Contrast Media - IV Dye] lidocaine [From Xylocaine] Allergy See Verified 06/18/18 08:47 Comments loratadine [From Claritin] Allergy Hives Verified 06/18/18 08:47 Penicillins Allergy See Verified 06/18/18 15:43 Comments Procaine [From Novocain] Allergy See Verified 06/18/18 08:47 Comments propoxyphene [From Darvon] Allergy See Verified 06/18/18 08:47 Comments pseudoephedrine Allergy Hives Verified 06/18/18 08:47 [From Sudafed] ropinirole [From Requip] Allergy Hallucinati Verified 06/18/18 15:43 ng albuterol AdvReac Shakiness Verified 06/18/18 08:47 ceftriaxone [From Rocephin] AdvReac See Verified 06/18/18 08:47 Comments clindamycin AdvReac Hypotension Verified 06/18/18 08:47 codeine AdvReac Hypertensio Verified 06/18/18 08:47 n doxycycline AdvReac Confusion Verified 06/18/18 15:43 famotidine AdvReac See Verified 06/18/18 08:47 Comments hydrocodone AdvReac See Verified 06/18/18 08:47 Comments hydrocortisone AdvReac Hypertensio Verified 06/18/18 08:47 n ipratropium AdvReac See Verified 06/18/18 08:47 Comments methylprednisolone AdvReac Hypertensio Verified 06/18/18 08:47 [From Solu-Medrol] n Neomycin AdvReac See Verified 06/18/18 08:47 Comments NSAIDS (Non-Steroidal AdvReac See Verified 06/18/18 08:47 Anti-Inflamma Comments prednisone AdvReac Hypertensio Verified 06/18/18 08:47 n Sulfa (Sulfonamide AdvReac See Verified 06/18/18 08:47 Antibiotics) Comments terfenadine AdvReac See Verified 06/18/18 08:47 Comments tramadol AdvReac See Verified 06/18/18 08:47 Comments Date of admission: 07/02/18 16:57 Primary care physician: Mauro Dockery MD Consults: 07/02/18 17:34 Consult to Nephrology [CONS] Routine Consulting Provider: Kidney Adriana/SANCHEZ/STEVEN/BABITA Reason for Consult: ESRD on HD Call Completed: No 07/02/18 17:38 Consult to Cardiology [CONS] Routine Comment: Consulting Provider: Cardiology Adriana Reason for Consult: chest pain Call Completed: No 07/02/18 19:04 Consult to Invertebrate Paleontologist [CONS] Routine Reason for SW Consult: discharge planning Discharging clinician: Lorena Kaur Anticipated date of discharge: 07/03/18 - Constitutional Vitals: Temp Pulse Resp BP Pulse Ox 98.2 F 77 17 132/69 99 07/03/18 11:13 07/03/18 11:13 07/03/18 11:13 07/03/18 11:13 07/03/18 11:13 Exam: General: No acute distress, AAO x 3, morbid obesity HEENT: EOMI, PERRLA, NC/AT, no scleral icterus Respiratory: Clear to auscultate bilaterally, no wheezing, no rales Cardiovascular: Regular, Rate, Rhythm, No murmurs GI: Soft, Non tender, non distended, normal bowel sounds Ext: chronic venous stasis in bilateral LE, no tenderness, positive pulses Neuro: AAO x 3, no focal deficits, CN II-XII grossly intact Rest of the clinical exam is noncontributory - Patient Status Disposition: Home Health Service Condition: Fair Functional capacity at discharge: uses cane/walker Overall status at discharge: patient is back to baseline - Discharge Instructions Follow Up With: Mauro Dockery MD [Primary Care Provider] - Additional Instructions: 1. Please follow up with your primary care physician within five days after your discharge from the hospital. 2. Please follow up cardiology within one week after your discharge from the hospital. 3. Please continue hemodialysis as prescribed by your hospital corpsman 4. Please continue all your home medications as prescribed by your primary care physician. 5. Please seek medical help if you have difficulty breathing or if chest pain occurs - Diet and Activity Activity: increase activity as tolerated, wear oxygen at all times, wear oxygen at night Diet: diabetic diet, low fat, low cholesterol, low salt diet
--- NOTE | 2018-07-03 23:35 | Nephrology Consult Note ---
Date of Encounter: 07/03/18 Time of Encounter: 12:00 Assessment and Plan (1) ESRD (end stage renal disease) Status: Acute Received 2 hours of HD yesterday, Lytes stable today No signs of volume overload at this time, will hold off on HD till tomorrow her regularky scheduled Renal diet advised Fluid restriction advised (2) Chest pain Status: Acute Qualifiers: Chest pain type: precordial pain Qualified Code(s): R07.2 - Precordial pain History of Present Illness - Reason for Consult Consult date: 07/03/18 end stage renal disease - History of Present Illness 63 y o female with PMH of ESRD on HD admitted with chest pain during HD, econd hospitalization for chest pain refusing any intervention as she is "allergic" to aspirin and plavix Past Med Surg Social Fam HX - Past Medical History Medical history: arthritis, COPD, DVT, diabetes, dialysis, GERD, hyperlipidemia, hypertension, migraine, osteoporosis, renal disease, thyroid disease, TIA Additional medical history: sleep apnea Psychiatric history: anxiety, depression - Past Surgical History Surgical History: appendectomy, hysterectomy, orthopedic, other, IVC filter Additional surgical history: carpal tunnel surgery left hand. perma cath change 2 to 3 weeks ago - Social History Smoking Status: Former smoker Smokeless Tobacco Status: No Alcohol use: occasionally Drug use: none - Family History Father Adopted: No Family Member Ethnicity: Non- Living Status: Hx Family Cardiac Disorders: Yes (CHF, HTN) Hx Family GI Disorders: No Hx Family Endocrine Disorder: Yes (DM) Hx Family Neurologic Disorders: Yes Brother Family Member Ethnicity: Non- Living Status: Hx Family Cardiac Disorders: Yes (CHF, ME) Hx Family Endocrine Disorder: Yes (DMII) Sister Family Member Ethnicity: Non- Living Status: Hx Family Cardiac Disorders: Yes (CHF) Hx Family Endocrine Disorder: Yes (DM) Mother Adopted: No Family Member Ethnicity: Non- Living Status: Hx Family Cardiac Disorders: Yes (father CHF) Hx Family Respiratory Disorders: No Hx Family Cancer: Yes (mother liver) Hx Family GI Disorders: No Hx Family Endocrine Disorder: Yes (DM/thyroid disease brothers and sisters) Hx Family Neuromuscular Disorders: No Hx Family Neurologic Disorders: No Hx Family HEENT Disorders: No Hx Family Autoimmune Disorders: Yes (brother lupus) Medications and Allergies DiphenhydraMINE [Benadryl] 25 mg PO TID PRN 03/22/15 [History] Exenatide Microspheres [Bydureon Pen] 2 mg SQ WE 03/22/15 [History] Nitroglycerin [Nitrostat] 0.4 mg SL Q5M PRN 03/22/15 [History] Promethazine [Phenergan] 25 mg PO TID PRN 03/22/15 [History] clonazePAM [Klonopin] 1 mg PO HS PRN 03/22/15 [History] Albuterol Neb [AccuNeb] 1.25 mg IH QID 05/06/16 [History] Omeprazole [PriLOSEC] 40 mg PO DAILY 11/10/16 [History] Gabapentin [Neurontin] 100 mg PO TID #90 capsule 11/27/16 [Rx] Albuterol Sulfate [Ventolin Hfa] 2 puff IH Q4H PRN 08/12/17 [History] Cyclobenzaprine [Flexeril] 10 mg PO TID PRN 08/12/17 [History] Docusate [Colace] 100 mg PO TID PRN 08/12/17 [History] Doxepin HCl 50 mg PO HS 08/12/17 [History] Insulin ASPART [Novolog Flexpen] 32 unit SQ TIDWM 08/12/17 [History] Levothyroxine Sodium [Levoxyl] 250 mcg PO QAM 08/12/17 [History] hydrOXYzine HCl [Hydroxyzine HCl] 25 mg PO TID PRN 08/12/17 [History] Ergocalciferol (VITAMIN D2) [Vitamin D2] 50,000 unit PO WE 09/23/17 [History] Furosemide [Lasix] 20 mg PO 1300 09/23/17 [History] Isosorbide MONOnitrate [Isosorbide Mononitrate ER] 30 mg PO HS 12/26/17 [History] Rosuvastatin Calcium [Crestor] 10 mg PO QPM 12/26/17 [History] Collagenase Oint [Santyl] 1 appl TP DAILY 04/15/18 [History] Acetaminophen [Tylenol] 1,000 mg PO TID 06/18/18 [History] Allopurinol [Zyloprim 300 MG] 300 mg PO DAILY 06/18/18 [History] Amlodipine Besylate 10 mg PO HS 06/18/18 [History] Apixaban [Eliquis] 5 mg PO BID 06/18/18 [History] Calcium Acetate [Phoslyra] 5 ml PO TIDWM 06/18/18 [History] Furosemide [Lasix] 20 mg PO 2200 06/18/18 [History] Furosemide [Lasix] 40 mg PO QAM 06/18/18 [History] Insulin Glargine,Hum.rec.anlog [Lantus Solostar] 80 unit SQ BID 06/18/18 [History] Meclizine HCl [Verticalm] 25 mg PO TID PRN 06/18/18 [History] Metoprolol Succinate [Toprol Xl] 25 mg PO DAILY 06/18/18 [History] Ammonium Lactate [Sachi-Hydrolac] 1 appl TP BID PRN 07/02/18 [History] Budesonide/Formoterol 160/4.5 [Symbicort 160/4.5] 2 puff IH BID 07/02/18 [History] Nystatin POWDER [Nystop] 1 appl TP TID PRN 07/02/18 [History] Allergy/AdvReac Type Severity Reaction Status Date / Time aspirin Allergy Hives Verified 06/18/18 08:47 cephalexin [From Keflex] Allergy Difficulty Verified 06/18/18 08:47 Breathing Cortisone Allergy See Verified 06/18/18 08:47 Comments ibuprofen Allergy Hives Verified 06/18/18 08:47 Iodinated Contrast- Oral and Allergy See Verified 06/18/18 08:47 IV Dye Comments [Iodinated Contrast Media - IV Dye] lidocaine [From Xylocaine] Allergy See Verified 06/18/18 08:47 Comments loratadine [From Claritin] Allergy Hives Verified 06/18/18 08:47 Penicillins Allergy See Verified 06/18/18 15:43 Comments Procaine [From Novocain] Allergy See Verified 06/18/18 08:47 Comments propoxyphene [From Darvon] Allergy See Verified 06/18/18 08:47 Comments pseudoephedrine Allergy Hives Verified 06/18/18 08:47 [From Sudafed] ropinirole [From Requip] Allergy Hallucinati Verified 06/18/18 15:43 ng albuterol AdvReac Shakiness Verified 06/18/18 08:47 ceftriaxone [From Rocephin] AdvReac See Verified 06/18/18 08:47 Comments clindamycin AdvReac Hypotension Verified 06/18/18 08:47 codeine AdvReac Hypertensio Verified 06/18/18 08:47 n doxycycline AdvReac Confusion Verified 06/18/18 15:43 famotidine AdvReac See Verified 06/18/18 08:47 Comments hydrocodone AdvReac See Verified 06/18/18 08:47 Comments hydrocortisone AdvReac Hypertensio Verified 06/18/18 08:47 n ipratropium AdvReac See Verified 06/18/18 08:47 Comments methylprednisolone AdvReac Hypertensio Verified 06/18/18 08:47 [From Solu-Medrol] n Neomycin AdvReac See Verified 06/18/18 08:47 Comments NSAIDS (Non-Steroidal AdvReac See Verified 06/18/18 08:47 Anti-Inflamma Comments prednisone AdvReac Hypertensio Verified 06/18/18 08:47 n Sulfa (Sulfonamide AdvReac See Verified 06/18/18 08:47 Antibiotics) Comments terfenadine AdvReac See Verified 06/18/18 08:47 Comments tramadol AdvReac See Verified 06/18/18 08:47 Comments Exam - Vital Signs Vital signs: Initial Vital Signs Temp Pulse Resp BP Pulse Ox 97.9 F 76 20 135/69 100 07/02/18 13:14 07/02/18 13:14 07/02/18 13:14 07/02/18 13:14 07/02/18 13:14 Intake and Output 07/03/18 07/03/18 07/03/18 07:59 15:59 23:59 Output Total 4500 / 4500 Balance -4500 / -4500 Output: Urine 4500 / 4500 Other: Blood Glucose* 131 161 Results - Lab Results 07/03/18 04:20 07/03/18 04:20 Consult Discharge Plan - Plan Instructions: Chest Pain (DC) Additional Instructions: 1. Please follow up with your primary care physician within five days after your discharge from the hospital. 2. Please follow up cardiology within one week after your discharge from the hospital. 3. Please continue hemodialysis as prescribed by your batt machine operator 4. Please continue all your home medications as prescribed by your primary care physician. 5. Please seek medical help if you have difficulty breathing or if chest pain occurs Referrals: Mauro Dockery MD [Primary Care Provider] - 07/09/18 1:15 pm Shari Christianson DO [Partnered Physician] - (Office will call you with an appointment date and time )
--- NOTE | 2018-07-04 19:06 | Electrocardiograph Report ---
[facility] Date: 2018-07-02 Pat Name: Jenny Mars Department: EXAM1 Room: 2A14 Gender: F Lure Maker: : 1955 Requested By: Roni Clements Order Number: [id number] Reading MD: Joaquin Medina Measurements Intervals [place] Rate: 75 P: 34 AL: 190 QRS: 28 QRSD: 101 T: 29 QT: 422 QTc: 472 Interpretive Statements Sinus rhythm Low voltage, precordial leads RSR' in V1 or V2, right VCD or RVH Electronically Signed On 07-04-2018 19:05:05 EDT by Joaquin Medina
== END 2018-07-03 13:07 | disposition home health service (06) ==
LOC: EMEROOARM 13:06 → 2ANU 13:06 → SUATTDRO 16:57 → 2ANU 18:21
PROVIDERS: ADMIT Internal Medicine Nephrology; ATTEND Internal Medicine

== ENCOUNTER 2018-08-29 06:28 | Inpatient (IN) ==
[2018-08-29] MEDS ORDERED: Albuterol 2.5 MG/3 ML NEBULIZER IH ONE (06:46)
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
[2018-08-29 07:16] LABS: Basophils % 0.2 %; Eosinophils # 0.2 K/mcL (0.0-0.6); Eosinophils % 2.8 %; Hematocrit 29.7 % (35.3-44.9); Hemoglobin 8.6 g/dL (11.5-15.4); Immature Granulocytes % 0.6 % (0-4); Lymphocytes # 0.7 K/mcL (0.6-4.6); Lymphocytes % 8.4 %; Mean Corpuscular Hemoglobin 29.2 pg (28.0-33.3); Mean Corpuscular Volume 100.7 fL (83.0-100.0); Mean Platelet Volume 10.1 fL (9.4-12.4); Monocytes # 0.6 K/mcL (0.0-1.3); Monocytes % 7.5 %; Neutrophils # 6.5 K/mcL (1.6-8.9); Platelet Count 253 K/mcL (140-400); Red Blood Count 2.95 M/mcL (3.82-4.97); Red Cell Distribution Width 17.1 % (11.5-14.5); Segmented Neutrophils % 80.5 %; White Blood Count 8.1 K/mcL (4.3-11.1)
[2018-08-29 07:36] LABS: BUN/Creatinine Ratio 15 (6-26); Blood Urea Nitrogen 60 mg/dL (8-23); Calcium 8.6 mg/dL (8.6-10.3); Carbon Dioxide 22 mEq/L (23-29); Chloride 99 mEq/L (98-107); Glucose 389 mg/dL (70-105); Magnesium 1.9 mg/dL (1.6-2.6); Potassium 5.7 mEq/L (3.5-5.1); Troponin I < 0.03 ng/mL (< 0.04); eGFR For African Americans 13 (> 60); eGFR For Non-African Americans 11 (> 60)
[2018-08-29] MEDS ORDERED: Albuterol 2.5 MG/3 ML NEBULIZER ONE (07:36)
[2018-08-29] MEDS ORDERED: Furosemide 40 MG/4 ML VIAL IVP ONE (07:40)
[2018-08-29 07:46] LABS: Osmolality,Calculated 315 (280-300); Sodium 136 mEq/L (136-145)
[2018-08-29] MEDS ORDERED: 0.9 % Sodium Chloride 250 ML IVC PRN (08:11)
[2018-08-29] MEDS ORDERED: 0.9 % Sodium Chloride 1,000 ML PRIME SCH (08:15)
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
[2018-08-29] MEDS ORDERED: Nitroglycerin 0.4 MG TAB.SUBL SL PRN (09:27)
[2018-08-29] MEDS ORDERED: hydrOXYzine pamoate 25 MG CAPSULE PO PRN (09:27)
[2018-08-29] MEDS ORDERED: clonazePAM 1 MG TABLET PO PRN (09:27)
[2018-08-29] MEDS ORDERED: Nystatin POWDER 30 GM BOTTLE TP PRN (09:27)
[2018-08-29] MEDS ORDERED: *HR* Dextrose 50 % in Water (Syg) 50 ML SYRINGE IVP PRN (09:32)
[2018-08-29] MEDS ORDERED: D5% in Water 1,000 ML IVC PRN (09:32)
[2018-08-29] MEDS ORDERED: Dextrose Gel 15 GM/37.5 ML TUBE PO PRN ×2 (09:32)
[2018-08-29] MEDS ORDERED: Naloxone 0.4 MG/ML INJ IVP PRN (09:34)
[2018-08-29] MEDS ORDERED: Ammonium Lactate 30 APPL/225 GM BOTTLE TP PRN (09:59)
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
[2018-08-29] MEDS: Insulin LISPRO 300 UNITS/3 ML VIAL SQ SCH ×5 (11:49→21:20)
[2018-08-29] MEDS ORDERED: *HR* Heparin 10,000 UNIT/10 ML VIAL IV PRN (11:50)
[2018-08-29] MEDS: Albuterol Neb 1.25 MG/3 ML VIAL IH SCH ×3 (11:57→22:16)
[2018-08-29 13:13] LABS: Hepatitis B Surface Antibody < 3.10 mIU/mL
[2018-08-29 13:24] LABS: Hepatitis B Surface Antigen Nonreactive (Nonreactive)
[2018-08-29] MEDS: Gabapentin 100 MG CAPSULE PO SCH ×2 (16:58→21:18)
[2018-08-29] MEDS: amLODIPine 5 MG TABLET PO SCH (21:18)
[2018-08-29] MEDS: Apixaban 5 MG TABLET PO SCH (21:20)
[2018-08-29] MEDS: Isosorbide MONOnitrate (24 HR) 30 MG TAB.ER.24H PO SCH (21:20)
[2018-08-29] MEDS: Insulin DETEMIR 100 UNIT/ML X5UNITS SQ SCH (21:20)
[2018-08-29] MEDS: Budesonide/Formoterol 160/4.5 1 PUFF INH IH SCH (22:16)
--- NOTE | 2018-08-30 00:47 | Electrocardiograph Report ---
[facility] Test Date: 2018-08-29 Pat Name: Jenny Mars Department: EXAM1 Room: 2A71 Gender: F Service Order Dispatcher Chief: : [id number] Requested By: Orlando Sandhu Order Number: [id number] Reading MD: Thomas Palmer Measurements Intervals [place] Rate: 92 P: 6 DE: 194 QRS: 65 QRSD: 93 T: 44 QT: 352 QTc: 436 Interpretive Statements Sinus rhythm Low voltage, precordial leads Electronically Signed On 08-30-2018 0:45:57 EDT by Thomas Palmer
[2018-08-30 02:42] LABS: Immature Granulocytes % 0.4 % (0-4); Mean Platelet Volume 9.9 fL (9.4-12.4)
[2018-08-30 02:44] LABS: Basophils % 0.2 %; Eosinophils # 0.2 K/mcL (0.0-0.6); Eosinophils % 3.4 %; Hematocrit 26.5 % (35.3-44.9); Hemoglobin 7.6 g/dL (11.5-15.4); Lymphocytes # 0.9 K/mcL (0.6-4.6); Lymphocytes % 16.8 %; Mean Corpuscular HGB Conc 28.7 g/dL (31.6-35.5); Mean Corpuscular Hemoglobin 28.1 pg (28.0-33.3); Mean Corpuscular Volume 98.1 fL (83.0-100.0); Monocytes # 0.4 K/mcL (0.0-1.3); Platelet Count 220 K/mcL (140-400); Segmented Neutrophils % 72.2 %; White Blood Count 5.6 K/mcL (4.3-11.1)
[2018-08-30 03:00] LABS: Calcium 8.4 mg/dL (8.6-10.3); Potassium 4.4 mEq/L (3.5-5.1)
[2018-08-30 03:11] LABS: Hypochromasia Present (Not Present); Platelet Estimate Normal (Normal)
[2018-08-30] MEDS: Albuterol Neb 1.25 MG/3 ML VIAL IH SCH ×4 (05:23→22:46)
[2018-08-30] MEDS: Insulin DETEMIR 100 UNIT/ML X5UNITS SQ SCH ×2 (07:59→23:03)
[2018-08-30] MEDS: Insulin LISPRO 300 UNITS/3 ML VIAL SQ SCH ×7 (07:59→23:03)
[2018-08-30] MEDS: Apixaban 5 MG TABLET PO SCH ×2 (08:01→21:23)
[2018-08-30] MEDS: Gabapentin 100 MG CAPSULE PO SCH ×3 (08:01→21:23)
[2018-08-30] MEDS: Metoprolol XL (24 HR) Succ 25 MG TAB.ER.24H PO SCH (08:01)
[2018-08-30] MEDS: Budesonide/Formoterol 160/4.5 1 PUFF INH IH SCH ×2 (10:47→22:46)
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
[2018-08-30] MEDS: Furosemide 40 MG TABLET PO SCH (16:02)
[2018-08-30] MEDS: Nystatin POWDER 30 GM BOTTLE TP SCH ×2 (16:02→23:04)
[2018-08-30] MEDS: Isosorbide MONOnitrate (24 HR) 30 MG TAB.ER.24H PO SCH (21:23)
[2018-08-30] MEDS: amLODIPine 5 MG TABLET PO SCH (21:24)
[2018-08-31] MEDS: Albuterol Neb 1.25 MG/3 ML VIAL IH SCH ×4 (04:40→21:45)
[2018-08-31 05:04] LABS: Immature Granulocytes % 0.4 % (0-4); Red Cell Distribution Width 17.2 % (11.5-14.5)
[2018-08-31 05:05] LABS: Hematocrit 27.3 % (35.3-44.9); Hemoglobin 7.6 g/dL (11.5-15.4); Mean Corpuscular HGB Conc 27.8 g/dL (31.6-35.5); Mean Corpuscular Hemoglobin 28.6 pg (28.0-33.3); Mean Corpuscular Volume 102.6 fL (83.0-100.0); Platelet Count 248 K/mcL (140-400); Red Blood Count 2.66 M/mcL (3.82-4.97); Segmented Neutrophils % 66.9 %; White Blood Count 5.6 K/mcL (4.3-11.1)
[2018-08-31 05:06] LABS: Basophils % 0.4 %; Eosinophils # 0.2 K/mcL (0.0-0.6); Eosinophils % 3.9 %; Lymphocytes # 1.1 K/mcL (0.6-4.6); Lymphocytes % 20.2 %; Monocytes # 0.5 K/mcL (0.0-1.3); Monocytes % 8.2 %; Neutrophils # 3.8 K/mcL (1.6-8.9)
[2018-08-31 05:25] LABS: Calcium 8.3 mg/dL (8.6-10.3); Potassium 4.7 mEq/L (3.5-5.1)
[2018-08-31 05:32] LABS: Hypochromasia Present (Not Present); Platelet Estimate Normal (Normal)
[2018-08-31 05:50] LABS: Folate 7.2 ng/mL (3.0-16.0)
[2018-08-31] MEDS ORDERED: 0.9 % Sodium Chloride 250 ML IVC PRN (07:39)
[2018-08-31] MEDS ORDERED: *HR* Heparin 10,000 UNIT/10 ML VIAL IV PRN (08:31)
[2018-08-31] MEDS: Insulin LISPRO 300 UNITS/3 ML VIAL SQ SCH ×7 (09:00→22:36)
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
[2018-08-31] MEDS: Budesonide/Formoterol 160/4.5 1 PUFF INH IH SCH ×2 (11:38→21:45)
[2018-08-31] MEDS: Apixaban 5 MG TABLET PO SCH ×2 (12:31→22:36)
[2018-08-31] MEDS: Gabapentin 100 MG CAPSULE PO SCH ×3 (12:31→22:36)
[2018-08-31] MEDS: Metoprolol XL (24 HR) Succ 25 MG TAB.ER.24H PO SCH (12:31)
[2018-08-31] MEDS: Insulin DETEMIR 100 UNIT/ML X5UNITS SQ SCH ×2 (12:32→22:37)
[2018-08-31] MEDS: Nystatin POWDER 30 GM BOTTLE TP SCH ×3 (12:34→22:38)
[2018-08-31] MEDS: Furosemide 40 MG TABLET PO SCH ×2 (12:39→15:05)
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
[2018-08-31] MEDS: Isosorbide MONOnitrate (24 HR) 30 MG TAB.ER.24H PO SCH (22:36)
[2018-08-31] MEDS: amLODIPine 5 MG TABLET PO SCH (22:38)
[2018-09-01] MEDS: Albuterol Neb 1.25 MG/3 ML VIAL IH SCH ×3 (03:57→15:55)
[2018-09-01 07:21] LABS: Basophils % 0.4 %; Eosinophils # 0.2 K/mcL (0.0-0.6); Eosinophils % 4.2 %; Hemoglobin 8.3 g/dL (11.5-15.4); Immature Granulocytes % 0.4 % (0-4); Lymphocytes % 17.5 %; Mean Corpuscular HGB Conc 29.6 g/dL (31.6-35.5); Mean Corpuscular Hemoglobin 28.8 pg (28.0-33.3); Mean Corpuscular Volume 97.2 fL (83.0-100.0); Mean Platelet Volume 9.5 fL (9.4-12.4); Monocytes # 0.5 K/mcL (0.0-1.3); Monocytes % 8.2 %; Neutrophils # 3.8 K/mcL (1.6-8.9); Platelet Count 232 K/mcL (140-400); Red Blood Count 2.88 M/mcL (3.82-4.97); Red Cell Distribution Width 17.2 % (11.5-14.5); Segmented Neutrophils % 69.3 %; White Blood Count 5.5 K/mcL (4.3-11.1)
[2018-09-01] MEDS ORDERED: 0.9 % Sodium Chloride 250 ML IVC PRN (07:24)
[2018-09-01 07:45] LABS: Calcium 8.8 mg/dL (8.6-10.3); Potassium 4.1 mEq/L (3.5-5.1)
[2018-09-01] MEDS: Insulin LISPRO 300 UNITS/3 ML VIAL SQ SCH ×4 (07:58→14:04)
[2018-09-01] MEDS ORDERED: Cyanocobalamin (B-12) 1,000 MCG TABLET PO SCH (09:00)
[2018-09-01] MEDS: Insulin DETEMIR 100 UNIT/ML X5UNITS SQ SCH (09:41)
[2018-09-01] MEDS: Apixaban 5 MG TABLET PO SCH (09:42)
[2018-09-01] MEDS: Nystatin POWDER 30 GM BOTTLE TP SCH ×2 (09:42→14:12)
[2018-09-01] MEDS: Furosemide 40 MG TABLET PO SCH (09:42)
[2018-09-01] MEDS: Gabapentin 100 MG CAPSULE PO SCH ×2 (09:42→14:00)
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
[2018-09-01] MEDS: Budesonide/Formoterol 160/4.5 1 PUFF INH IH SCH (10:58)
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
[2018-09-01] MEDS: Metoprolol XL (24 HR) Succ 25 MG TAB.ER.24H PO SCH (14:00)
[2018-09-01 14:04] VITALS: BP 147/62
== END 2018-09-01 17:12 | disposition home health service (06) | DRG 291 ==
LOC: 2ANU 06:28 → EMEROOARM 06:28 → SUATTDRO 08:22 → 2ANU 09:33
PROVIDERS: ADMIT Student in an Organized Health Care Education/Training Program; ATTEND Internal Medicine

== ENCOUNTER 2018-10-19 05:04 | Inpatient (IN) ==
[2018-10-19] MEDS ORDERED: Ipratropium/Albuterol Neb 3 ML IH ONE (05:15)
[2018-10-19] MEDS ORDERED: methylPREDNISolone 125 MG/2 ML VIAL IVP ONE (05:15)
--- NOTE | 2018-10-19 05:35 | Emergency Department Note ---
Disposition Clinical Impression: CHF exacerbation Qualifiers: Heart failure type: unspecified Qualified Code(s): I50.9 - Heart failure, unspecified Disposition: Still a Patient Condition: Fair Referrals: NONE,PCP [Primary Care Provider] - Forms: ED Satisfaction Letter Time of Disposition: 07:00 SOB HPI - General Chief Complaint: ED Shortness of Breath/Dyspnea Stated Complaint: JEANNINE Time Seen by Provider: 10/19/18 05:11 Source: patient, EMS Mode of arrival: EMS Limitations: physical limitation Nursing Notes Reviewed: Yes Vital Signs Reviewed: Yes - History of Present Illness 63-year-old female presented to the emergency department with shortness of breath. Does have history of CHF and COPD. She is morbidly obese. States that since yesterday she is having worsening shortness of breath she believes is her CHF is worsening. Said this can occur when she eats bad foods that she may have done. Says she normally comes in gets IV Lasix and then feels better. She is a dialysis patient she is Friday schedule. Did have her normal dialysis on Friday. Said that she also COPD is always on 2 L of oxygen and had increased to 3 L over the last day. Has done treatments better in 3-4 hours said that this last time he just got worsening shortness of breath was worsening . She does not feel units or COPD. She has no fevers no chills not been coughing any thing up having congestion. There is no chest pain. There is no abdominal pain. Otherwise patient has no other complaints at this time. - Related Data Home Medications Medication Instructions Recorded Confirmed Exenatide Microspheres [Bydureon 2 mg SQ WE 03/22/15 09/29/18 Pen] Nitroglycerin [Nitrostat] 0.4 mg SL Q5M PRN 03/22/15 09/29/18 Omeprazole [PriLOSEC] 40 mg PO DAILY 11/10/16 09/29/18 Albuterol Sulfate [Ventolin Hfa] 2 puff IH Q4H PRN 08/12/17 09/29/18 Cyclobenzaprine [Flexeril] 10 mg PO TID PRN 08/12/17 09/29/18 Docusate [Colace] 100 mg PO TID PRN 08/12/17 09/29/18 Doxepin HCl 50 mg PO HS 08/12/17 09/29/18 Insulin ASPART [Novolog Flexpen] 32 - 50 unit SQ ACHS 08/12/17 09/29/18 Levothyroxine Sodium [Levoxyl] 250 mcg PO QAM 08/12/17 09/29/18 Ergocalciferol (VITAMIN D2) 50,000 unit PO WE 09/23/17 09/29/18 [Vitamin D2] Rosuvastatin Calcium [Crestor] 10 mg PO QPM 12/26/17 09/29/18 Acetaminophen [Tylenol] 1,000 mg PO BID PRN 06/18/18 09/29/18 Allopurinol [Zyloprim 300 MG] 300 mg PO DAILY 06/18/18 09/29/18 Amlodipine Besylate 10 mg PO HS 06/18/18 09/29/18 Apixaban [Eliquis] 5 mg PO BID 06/18/18 09/29/18 Insulin Glargine,Hum.rec.anlog 80 unit SQ BID 06/18/18 09/29/18 [Lantus Solostar] Meclizine HCl [Verticalm] 25 mg PO TID PRN 06/18/18 09/29/18 Metoprolol Succinate [Toprol Xl] 25 mg PO DAILY 06/18/18 09/29/18 Budesonide/Formoterol 160/4.5 2 puff IH BID 07/02/18 09/29/18 [Symbicort 160/4.5] Furosemide [Lasix] 40 mg PO BID 08/30/18 09/29/18 Ipratropium/Albuterol Neb [Duoneb] 3 ml IH Q6HR PRN 08/30/18 09/29/18 Previous Rx's Medication Instructions Recorded Gabapentin [Neurontin] 100 mg PO TID #90 capsule 11/27/16 Ammonium Lactate [Amlactin] 1 appl TP BID PRN #1 bottle 09/01/18 Cetirizine HCl [Zyrtec] 10 mg PO DAILY PRN #30 capsule 09/01/18 Collagenase Oint [Santyl] 1 appl TP DAILY #1 tube 09/01/18 Cyanocobalamin (B-12) [Vitamin B12] 1,000 mcg PO DAILY #30 tablet 09/01/18 Nystatin POWDER [Nystop] 1 appl TP TID PRN #1 bottle 09/01/18 Gentamicin Oint [Garamycin] 15 appl TP HS 15 Days #1 tube 10/02/18 Allergies Allergy/AdvReac Type Severity Reaction Status Date / Time aspirin Allergy Hives Verified 10/19/18 05:36 cephalexin [From Keflex] Allergy Difficulty Verified 10/19/18 05:36 Breathing Cortisone Allergy See Verified 10/19/18 05:36 Comments ibuprofen Allergy Hives Verified 10/19/18 05:36 Iodinated Contrast Media Allergy See Verified 10/19/18 05:36 [Iodinated Contrast Media - Comments IV Dye] lidocaine [From Xylocaine] Allergy See Verified 10/19/18 05:36 Comments loratadine [From Claritin] Allergy Hives Verified 10/19/18 05:36 Penicillins Allergy See Verified 10/19/18 05:36 Comments Procaine [From Novocain] Allergy See Verified 10/19/18 05:36 Comments propoxyphene [From Darvon] Allergy See Verified 10/19/18 05:36 Comments pseudoephedrine Allergy Hives Verified 10/19/18 05:36 [From Sudafed] ropinirole [From Requip] Allergy Hallucinati Verified 10/19/18 05:36 ng albuterol AdvReac Shakiness Verified 10/19/18 05:36 ceftriaxone [From Rocephin] AdvReac See Verified 10/19/18 05:36 Comments clindamycin AdvReac Hypotension Verified 10/19/18 05:36 codeine AdvReac Hypertensio Verified 10/19/18 05:36 n doxycycline AdvReac Confusion Verified 10/19/18 05:36 famotidine AdvReac See Verified 10/19/18 05:36 Comments hydrocodone AdvReac See Verified 10/19/18 05:36 Comments hydrocortisone AdvReac Hypertensio Verified 10/19/18 05:36 n ipratropium AdvReac See Verified 10/19/18 05:36 Comments methylprednisolone AdvReac Hypertensio Verified 10/19/18 05:36 [From Solu-Medrol] n Neomycin AdvReac See Verified 10/19/18 05:36 Comments NSAIDS (Non-Steroidal AdvReac See Verified 10/19/18 05:36 Anti-Inflamma Comments prednisone AdvReac Hypertensio Verified 10/19/18 05:36 n Sulfa (Sulfonamide AdvReac See Verified 10/19/18 05:36 Antibiotics) Comments terfenadine AdvReac See Verified 10/19/18 05:36 Comments tramadol AdvReac See Verified 10/19/18 05:36 Comments All systems ED: reviewed and negative except as stated. Review of Systems: As Per HPI Past Medical History - Past Medical History Attestation: Yes The following information was validated with the patient. Source: patient Medical history: Reports: arthritis, CHF, COPD, coronary artery disease, CVA, DVT, diabetes, dialysis, GERD, hyperlipidemia, hypertension, migraine, osteoporosis, renal disease, thyroid disease, TIA, other Surgical history: Reports: appendectomy, hysterectomy, orthopedic, other, IVC filter Psychiatric history: Reports: anxiety, depression [employer] history: Reports: bilateral 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 - Social History Smoking Status: Former smoker Smokeless Tobacco Status: No Alcohol use: Reports: occasionally Drug use: Reports: none Physical Exam - General Limitations: physical limitation General appearance: alert - Head Head exam: atraumatic, normocephalic, normal inspection - Eye Eye exam: Present: normal appearance, PERRL, EOMI - ENT ENT exam: normal exam, normal oropharynx, mucous membranes moist - Neck Neck exam: Present: normal inspection, full ROM, trachea midline - Chest Chest inspection: Present: normal inspection, symmetric chest wall rise - Respiratory Respiratory exam: Present: normal lung sounds bilaterally. Absent: respiratory distress, wheezes, accessory muscle use - Cardiovascular Cardiovascular exam: Present: regular rate, normal rhythm, normal heart sounds - Abdominal Exam Abdominal exam: Present: soft, Non-Tender, normal bowel sounds. Absent: tenderness, distention, guarding, rebound, rigidity - Extremities Exam Extremities exam: Present: normal inspection, full ROM. Absent: tenderness, pedal edema - Neurological Exam Neurological exam: Present: alert, oriented X3 - Skin Skin exam: Present: warm, dry, intact, normal color, other (Dressed wounds in the right and left hips that are getting cared by wound care there ulcers in the right hip as well as an ulcer in the left hip as well. Currently healing well and no erythema around the area.) Course Course Narrative: Patient presenting here difficulty in breathing we will get basic labs as well as a chest x-ray. We will give patient DuoNeb Solu-Medrol. Pending results will consider giving patient Lasix. Patient was likely will need to be admitted. She does have multiple ulcers on her right and left hips seem to be getting cared for by wound care at this time last changed approximately 2 days ago which is normal for her. She is a dialysis patient as well. Discharge most likely will be admission for further evaluation. Last echogram was in June showed an EF of 65-70%. - Reevaluation(s) Reevaluation #1: Patient had 10 beats of ventricular tachycardia asymptomatic nursing was at bedside. Nothing needs to be done this time we will continue to monitor well on telemetry Time: 06:20 Vital Signs Temperature 98.2 F 10/19/18 05:23 Pulse Rate 84 10/19/18 05:23 Respiratory Rate 24 10/19/18 05:23 O2 Sat by Pulse Oximetry 98 10/19/18 05:23 Temperature 98.2 F 10/19/18 05:25 Pulse Rate 84 10/19/18 05:25 Respiratory Rate 22 10/19/18 06:23 Blood Pressure 186/57 10/19/18 05:25 O2 Sat by Pulse Oximetry 96 10/19/18 06:23 Oxygen Delivery Oxygen Delivery Nasal Cannula Shortness of Breath/Dyspnea - [facility] Narrative Medical decision making narrative: Patient here with shortness of breath. Labs are still pending at this time. Chest x-ray came back showing possible pulmonary edema likely secondary to her CHF exacerbation I still think patient needs to be admitted. Utilizing pending we will sign the patient out to the day team physicians Dr. Louis and Sagar please refer to their note for further disposition and plan. Patient is handed off in stable condition Chest X-Ray 10/19/18 05:12 IMPRESSION: Pulmonary edema with left basilar atelectasis or pneumonia. D/ / Dameon Alfonso MD / Dameon Alfonso MD Interpreting Provider: Dameon Alfonso MD - Medical Records Medical records reviewed: Yes I reviewed the patient's medical records. - Lab Data Lab results reviewed: Yes I reviewed the patient's lab results. Result diagrams: 10/19/18 06:23 Lab Results 10/19/18 10/19/18 Range/Units 06:23 06:23 WBC 9.0 (4.3-11.1) K/mcL RBC 2.69 L (3.82-4.97) M/mcL Hgb 7.3 L (11.5-15.4) g/dL Hct 26.4 L (35.3-44.9) % MCV 98.1 (83.0-100.0) fL MCH 27.1 L (28.0-33.3) pg MCHC 27.7 L (31.6-35.5) g/dL RDW 19.5 H (11.5-14.5) % Plt Count 294 (140-400) K/mcL MPV 9.9 (9.4-12.4) fL Lactic Acid 1.0 (0.5-2.2) mmol/L - Radiology Data Radiology results reviewed: Yes I reviewed the patient's radiology results. - EKG Data EKG attestation: Yes I reviewed and interpreted this EKG. EKG results narrative: EKG done at 0 521 review myself and the attending shows sinus rhythm at a rate of 86, VA interval 169, QRS 105, QTC 441. No acute ST changes no acute T-wave changes no other signs of ischemia. No signs of hypertrophy, heart rate, heart block. No WPW/Brugada/HOCM. No old EKG to compare with
[2018-10-19] MEDS ORDERED: Furosemide 40 MG/4 ML VIAL IVP ONE (05:40)
--- NOTE | 2018-10-19 05:40 | Emergency Department Note ---
Disposition Clinical Impression: CHF exacerbation Qualifiers: Heart failure type: unspecified Qualified Code(s): I50.9 - Heart failure, unspecified Disposition: Admitted As Inpatient Condition: Fair Time of Disposition: 07:00 General Adult HPI - General Chief complaint: ED Shortness of Breath/Dyspnea Stated complaint: JEANNINE Time Seen by Provider: 10/19/18 05:11 Source: patient, EMS Mode of arrival: EMS Limitations: physical limitation - History of Present Illness Pain Scale: 7 - Related Data Home Medications Medication Instructions Recorded Confirmed Exenatide Microspheres [Bydureon 2 mg SQ WE 03/22/15 10/19/18 Pen] Nitroglycerin [Nitrostat] 0.4 mg SL Q5M PRN 03/22/15 10/19/18 Omeprazole [PriLOSEC] 40 mg PO DAILY 11/10/16 10/19/18 Albuterol Sulfate [Ventolin Hfa] 2 puff IH Q4H PRN 08/12/17 10/19/18 Cyclobenzaprine [Flexeril] 10 mg PO TID PRN 08/12/17 10/19/18 Docusate [Colace] 100 mg PO TID PRN 08/12/17 10/19/18 Doxepin HCl 50 mg PO HS 08/12/17 10/19/18 Insulin ASPART [Novolog Flexpen] 32 - 50 unit SQ ACHS 08/12/17 10/19/18 Levothyroxine Sodium [Levoxyl] 250 mcg PO QAM 08/12/17 10/19/18 Ergocalciferol (VITAMIN D2) 50,000 unit PO WE 09/23/17 10/19/18 [Vitamin D2] Rosuvastatin Calcium [Crestor] 10 mg PO QPM 12/26/17 10/19/18 Acetaminophen [Tylenol] 1,000 mg PO BID PRN 06/18/18 10/19/18 Allopurinol [Zyloprim 300 MG] 300 mg PO DAILY 06/18/18 10/19/18 Amlodipine Besylate 10 mg PO HS 06/18/18 10/19/18 Apixaban [Eliquis] 5 mg PO BID 06/18/18 10/19/18 Insulin Glargine,Hum.rec.anlog 80 unit SQ BID 06/18/18 10/19/18 [Lantus Solostar] Meclizine HCl [Verticalm] 25 mg PO TID PRN 06/18/18 10/19/18 Metoprolol Succinate [Toprol Xl] 25 mg PO DAILY 06/18/18 10/19/18 Budesonide/Formoterol 160/4.5 2 puff IH BID 07/02/18 10/19/18 [Symbicort 160/4.5] Furosemide [Lasix] 40 mg PO BID 08/30/18 10/19/18 Ipratropium/Albuterol Neb [Duoneb] 3 ml IH Q6HR PRN 08/30/18 10/19/18 clonazePAM [Clonazepam] 1 mg PO HS 10/19/18 10/19/18 Previous Rx's Medication Instructions Recorded Gabapentin [Neurontin] 100 mg PO TID #90 capsule 11/27/16 Ammonium Lactate [Amlactin] 1 appl TP BID PRN #1 bottle 09/01/18 Cetirizine HCl [Zyrtec] 10 mg PO DAILY PRN #30 capsule 09/01/18 Collagenase Oint [Santyl] 1 appl TP DAILY #1 tube 09/01/18 Cyanocobalamin (B-12) [Vitamin B12] 1,000 mcg PO DAILY #30 tablet 09/01/18 Nystatin POWDER [Nystop] 1 appl TP TID PRN #1 bottle 09/01/18 Allergies Allergy/AdvReac Type Severity Reaction Status Date / Time aspirin Allergy Hives Verified 10/19/18 05:36 cephalexin [From Keflex] Allergy Difficulty Verified 10/19/18 05:36 Breathing Cortisone Allergy See Verified 10/19/18 05:36 Comments ibuprofen Allergy Hives Verified 10/19/18 05:36 Iodinated Contrast Media Allergy See Verified 10/19/18 05:36 [Iodinated Contrast Media - Comments IV Dye] lidocaine [From Xylocaine] Allergy See Verified 10/19/18 05:36 Comments loratadine [From Claritin] Allergy Hives Verified 10/19/18 05:36 Penicillins Allergy See Verified 10/19/18 05:36 Comments Procaine [From Novocain] Allergy See Verified 10/19/18 05:36 Comments propoxyphene [From Darvon] Allergy See Verified 10/19/18 05:36 Comments pseudoephedrine Allergy Hives Verified 10/19/18 05:36 [From Sudafed] ropinirole [From Requip] Allergy Hallucinati Verified 10/19/18 05:36 ng albuterol AdvReac Shakiness Verified 10/19/18 05:36 ceftriaxone [From Rocephin] AdvReac See Verified 10/19/18 05:36 Comments clindamycin AdvReac Hypotension Verified 10/19/18 05:36 codeine AdvReac Hypertensio Verified 10/19/18 05:36 n doxycycline AdvReac Confusion Verified 10/19/18 05:36 famotidine AdvReac See Verified 10/19/18 05:36 Comments hydrocodone AdvReac See Verified 10/19/18 05:36 Comments hydrocortisone AdvReac Hypertensio Verified 10/19/18 05:36 n ipratropium AdvReac See Verified 10/19/18 05:36 Comments methylprednisolone AdvReac Hypertensio Verified 10/19/18 05:36 [From Solu-Medrol] n Neomycin AdvReac See Verified 10/19/18 05:36 Comments NSAIDS (Non-Steroidal AdvReac See Verified 10/19/18 05:36 Anti-Inflamma Comments prednisone AdvReac Hypertensio Verified 10/19/18 05:36 n Sulfa (Sulfonamide AdvReac See Verified 10/19/18 05:36 Antibiotics) Comments terfenadine AdvReac See Verified 10/19/18 05:36 Comments tramadol AdvReac See Verified 10/19/18 05:36 Comments Past Medical History - Past Medical History Medical history: Reports: arthritis, CHF, COPD, coronary artery disease, CVA, DVT, diabetes, dialysis, GERD, hyperlipidemia, hypertension, migraine, osteoporosis, renal disease, thyroid disease, TIA, other Surgical history: Reports: appendectomy, hysterectomy, orthopedic, other, IVC filter Psychiatric history: Reports: anxiety, depression [employer] history: Reports: bilateral 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 - Social History Smoking Status: Former smoker Smokeless Tobacco Status: No Alcohol use: Reports: occasionally Drug use: Reports: none Physical Exam - General Limitations: physical limitation General appearance: alert Course Vital Signs Temperature 98.2 F 10/19/18 05:23 Pulse Rate 84 10/19/18 05:23 Respiratory Rate 24 10/19/18 05:23 O2 Sat by Pulse Oximetry 98 10/19/18 05:23 Temperature 98.8 F 10/19/18 20:10 Pulse Rate 90 10/19/18 20:10 Respiratory Rate 18 10/19/18 20:10 Blood Pressure 167/61 10/19/18 20:10 O2 Sat by Pulse Oximetry 95 10/19/18 20:10 Oxygen Delivery Oxygen Delivery Nasal Cannula Medical Decision Making - Lab Data Result diagrams: 10/19/18 06:23 10/19/18 06:23 Lab Results 10/19/18 10/19/18 10/19/18 Range/Units 06:23 06:23 06:23 WBC 9.0 (4.3-11.1) K/mcL RBC 2.69 L (3.82-4.97) M/mcL Hgb 7.3 L (11.5-15.4) g/dL Hct 26.4 L (35.3-44.9) % MCV 98.1 (83.0-100.0) fL MCH 27.1 L (28.0-33.3) pg MCHC 27.7 L (31.6-35.5) g/dL RDW 19.5 H (11.5-14.5) % Plt Count 294 (140-400) K/mcL MPV 9.9 (9.4-12.4) fL Immature Gran % 0.6 (0-4) % Seg Neutrophils % 82.7 % Lymphocytes % 7.6 % Monocytes % 6.5 % Eosinophils % 2.3 % Basophils % 0.3 % Neutrophils # 7.4 (1.6-8.9) K/mcL Lymphocytes # 0.7 (0.6-4.6) K/mcL Monocytes # 0.6 (0.0-1.3) K/mcL Eosinophils # 0.2 (0.0-0.6) K/mcL Basophils # 0.0 (0.0-0.2) K/mcL Platelet Estimate Normal (Normal) Hypochromasia Present A (Not Present) Sodium 135 L (136-145) mEq/L Potassium 4.9 (3.5-5.1) mEq/L Chloride 102 (98-107) mEq/L Carbon Dioxide 24 (23-29) mEq/L BUN 45 H (8-23) mg/dL Creatinine 3.82 H (0.60-1.20) mg/dL Est GFR ( Amer) 14 L (> 60) Est GFR (Non-Af Amer) 12 L (> 60) BUN/Creatinine Ratio 12 (6-26) Glucose 295 H (70-105) mg/dL Calculated Osmolality 302 H (280-300) Lactic Acid 1.0 (0.5-2.2) mmol/L Calcium 8.7 (8.6-10.3) mg/dL Troponin I 0.03 (< 0.04) ng/mL B-Natriuretic Peptide (Less than 100) pg/mL 10/19/18 Range/Units 06:23 WBC (4.3-11.1) K/mcL RBC (3.82-4.97) M/mcL Hgb (11.5-15.4) g/dL Hct (35.3-44.9) % MCV (83.0-100.0) fL MCH (28.0-33.3) pg MCHC (31.6-35.5) g/dL RDW (11.5-14.5) % Plt Count (140-400) K/mcL MPV (9.4-12.4) fL Immature Gran % (0-4) % Seg Neutrophils % % Lymphocytes % % Monocytes % % Eosinophils % % Basophils % % Neutrophils # (1.6-8.9) K/mcL Lymphocytes # (0.6-4.6) K/mcL Monocytes # (0.0-1.3) K/mcL Eosinophils # (0.0-0.6) K/mcL Basophils # (0.0-0.2) K/mcL Platelet Estimate (Normal) Hypochromasia (Not Present) Sodium (136-145) mEq/L Potassium (3.5-5.1) mEq/L Chloride (98-107) mEq/L Carbon Dioxide (23-29) mEq/L BUN (8-23) mg/dL Creatinine (0.60-1.20) mg/dL Est GFR ( Amer) (> 60) Est GFR (Non-Af Amer) (> 60) BUN/Creatinine Ratio (6-26) Glucose (70-105) mg/dL Calculated Osmolality (280-300) Lactic Acid (0.5-2.2) mmol/L Calcium (8.6-10.3) mg/dL Troponin I (< 0.04) ng/mL B-Natriuretic Peptide 727 H (Less than 100) pg/mL Attestation Statement - Attestation Attestation: I examined this patient and my medical decision-making was reviewed with the Danilo hoffman Physician. I agree with the documented findings, disposition and treatment plan as described except to the extent set forth below. Patient 63-year-old female that presents to emergency department with chief complaint of shortness of breath. The patient reports she has prior history of COPD and CHF patient is also end-stage renal disease on dialysis. The patient went to her normal dialysis on on Friday but afterwards has been having to do breathing treatments every 2 hours. The patient states this feels similar whenever she is in CHF exacerbations before in the past. Exam patient is awake alert morbidly obese resting comfortably in the room. Medical decision management and she will undergo chest x-ray laboratory testing and the plan will be most likely to admit the patient to the hospital I personally supervised and was present for the dillard/critical portions of the following procedures completed by the resident:EKG.
[2018-10-19 06:44] LABS: Hematocrit 26.4 % (35.3-44.9); Hemoglobin 7.3 g/dL (11.5-15.4); Mean Corpuscular HGB Conc 27.7 g/dL (31.6-35.5)
[2018-10-19 06:46] LABS: Basophils % 0.3 %; Eosinophils # 0.2 K/mcL (0.0-0.6); Eosinophils % 2.3 %; Immature Granulocytes % 0.6 % (0-4); Lymphocytes # 0.7 K/mcL (0.6-4.6); Lymphocytes % 7.6 %; Mean Corpuscular Hemoglobin 27.1 pg (28.0-33.3); Mean Corpuscular Volume 98.1 fL (83.0-100.0); Mean Platelet Volume 9.9 fL (9.4-12.4); Monocytes # 0.6 K/mcL (0.0-1.3); Monocytes % 6.5 %; Neutrophils # 7.4 K/mcL (1.6-8.9); Platelet Count 294 K/mcL (140-400); Red Blood Count 2.69 M/mcL (3.82-4.97); Red Cell Distribution Width 19.5 % (11.5-14.5); Segmented Neutrophils % 82.7 %
[2018-10-19 07:06] LABS: Calcium 8.7 mg/dL (8.6-10.3); Potassium 4.9 mEq/L (3.5-5.1)
[2018-10-19 07:07] LABS: Troponin I 0.03 ng/mL (< 0.04)
[2018-10-19 07:12] LABS: Hypochromasia Present (Not Present); Platelet Estimate Normal (Normal)
--- NOTE | 2018-10-19 07:49 | Emergency Department Note ---
Disposition Clinical Impression: CHF exacerbation Qualifiers: Heart failure type: unspecified Qualified Code(s): I50.9 - Heart failure, unspecified Disposition: Admitted As Inpatient Condition: Fair Time of Disposition: 11:18 General Adult HPI - General Chief complaint: ED Shortness of Breath/Dyspnea Stated complaint: JEANNINE Time Seen by Provider: 10/19/18 05:11 Source: patient, EMS Mode of arrival: EMS Limitations: physical limitation Nursing Notes Reviewed: Yes Vital Signs Reviewed: Yes - History of Present Illness Pain Scale: 7 - Related Data Home Medications Medication Instructions Recorded Confirmed Exenatide Microspheres [Bydureon 2 mg SQ WE 03/22/15 10/19/18 Pen] Nitroglycerin [Nitrostat] 0.4 mg SL Q5M PRN 03/22/15 10/19/18 Omeprazole [PriLOSEC] 40 mg PO DAILY 11/10/16 10/19/18 Albuterol Sulfate [Ventolin Hfa] 2 puff IH Q4H PRN 08/12/17 10/19/18 Cyclobenzaprine [Flexeril] 10 mg PO TID PRN 08/12/17 10/19/18 Docusate [Colace] 100 mg PO TID PRN 08/12/17 10/19/18 Doxepin HCl 50 mg PO HS 08/12/17 10/19/18 Insulin ASPART [Novolog Flexpen] 32 - 50 unit SQ ACHS 08/12/17 10/19/18 Levothyroxine Sodium [Levoxyl] 250 mcg PO QAM 08/12/17 10/19/18 Ergocalciferol (VITAMIN D2) 50,000 unit PO WE 09/23/17 10/19/18 [Vitamin D2] Rosuvastatin Calcium [Crestor] 10 mg PO QPM 12/26/17 10/19/18 Acetaminophen [Tylenol] 1,000 mg PO BID PRN 06/18/18 10/19/18 Allopurinol [Zyloprim 300 MG] 300 mg PO DAILY 06/18/18 10/19/18 Amlodipine Besylate 10 mg PO HS 06/18/18 10/19/18 Apixaban [Eliquis] 5 mg PO BID 06/18/18 10/19/18 Insulin Glargine,Hum.rec.anlog 80 unit SQ BID 06/18/18 10/19/18 [Lantus Solostar] Meclizine HCl [Verticalm] 25 mg PO TID PRN 06/18/18 10/19/18 Metoprolol Succinate [Toprol Xl] 25 mg PO DAILY 06/18/18 10/19/18 Budesonide/Formoterol 160/4.5 2 puff IH BID 07/02/18 10/19/18 [Symbicort 160/4.5] Furosemide [Lasix] 40 mg PO BID 08/30/18 10/19/18 Ipratropium/Albuterol Neb [Duoneb] 3 ml IH Q6HR PRN 08/30/18 10/19/18 Previous Rx's Medication Instructions Recorded Gabapentin [Neurontin] 100 mg PO TID #90 capsule 11/27/16 Ammonium Lactate [Amlactin] 1 appl TP BID PRN #1 bottle 09/01/18 Cetirizine HCl [Zyrtec] 10 mg PO DAILY PRN #30 capsule 09/01/18 Collagenase Oint [Santyl] 1 appl TP DAILY #1 tube 09/01/18 Cyanocobalamin (B-12) [Vitamin B12] 1,000 mcg PO DAILY #30 tablet 09/01/18 Nystatin POWDER [Nystop] 1 appl TP TID PRN #1 bottle 09/01/18 Gentamicin Oint [Garamycin] 15 appl TP HS 15 Days #1 tube 10/02/18 Allergies Allergy/AdvReac Type Severity Reaction Status Date / Time aspirin Allergy Hives Verified 10/19/18 05:36 cephalexin [From Keflex] Allergy Difficulty Verified 10/19/18 05:36 Breathing Cortisone Allergy See Verified 10/19/18 05:36 Comments ibuprofen Allergy Hives Verified 10/19/18 05:36 Iodinated Contrast Media Allergy See Verified 10/19/18 05:36 [Iodinated Contrast Media - Comments IV Dye] lidocaine [From Xylocaine] Allergy See Verified 10/19/18 05:36 Comments loratadine [From Claritin] Allergy Hives Verified 10/19/18 05:36 Penicillins Allergy See Verified 10/19/18 05:36 Comments Procaine [From Novocain] Allergy See Verified 10/19/18 05:36 Comments propoxyphene [From Darvon] Allergy See Verified 10/19/18 05:36 Comments pseudoephedrine Allergy Hives Verified 10/19/18 05:36 [From Sudafed] ropinirole [From Requip] Allergy Hallucinati Verified 10/19/18 05:36 ng albuterol AdvReac Shakiness Verified 10/19/18 05:36 ceftriaxone [From Rocephin] AdvReac See Verified 10/19/18 05:36 Comments clindamycin AdvReac Hypotension Verified 10/19/18 05:36 codeine AdvReac Hypertensio Verified 10/19/18 05:36 n doxycycline AdvReac Confusion Verified 10/19/18 05:36 famotidine AdvReac See Verified 10/19/18 05:36 Comments hydrocodone AdvReac See Verified 10/19/18 05:36 Comments hydrocortisone AdvReac Hypertensio Verified 10/19/18 05:36 n ipratropium AdvReac See Verified 10/19/18 05:36 Comments methylprednisolone AdvReac Hypertensio Verified 10/19/18 05:36 [From Solu-Medrol] n Neomycin AdvReac See Verified 10/19/18 05:36 Comments NSAIDS (Non-Steroidal AdvReac See Verified 10/19/18 05:36 Anti-Inflamma Comments prednisone AdvReac Hypertensio Verified 10/19/18 05:36 n Sulfa (Sulfonamide AdvReac See Verified 10/19/18 05:36 Antibiotics) Comments terfenadine AdvReac See Verified 10/19/18 05:36 Comments tramadol AdvReac See Verified 10/19/18 05:36 Comments Past Medical History - Past Medical History Medical history: Reports: arthritis, CHF, COPD, coronary artery disease, CVA, DVT, diabetes, dialysis, GERD, hyperlipidemia, hypertension, migraine, osteoporosis, renal disease, thyroid disease, TIA, other Surgical history: Reports: appendectomy, hysterectomy, orthopedic, other, IVC filter Psychiatric history: Reports: anxiety, depression 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 - Social History Smoking Status: Former smoker Smokeless Tobacco Status: No Alcohol use: Reports: occasionally Drug use: Reports: none Physical Exam - General Limitations: physical limitation General appearance: alert Course Vital Signs Temperature 98.2 F 10/19/18 05:23 Pulse Rate 84 10/19/18 05:23 Respiratory Rate 24 10/19/18 05:23 O2 Sat by Pulse Oximetry 98 10/19/18 05:23 Temperature 98.2 F 10/19/18 06:31 Pulse Rate 93 10/19/18 09:15 Respiratory Rate 18 10/19/18 09:15 Blood Pressure 144/67 10/19/18 09:15 O2 Sat by Pulse Oximetry 95 10/19/18 09:15 Oxygen Delivery Oxygen Delivery Nasal Cannula Medical Decision Making - MDM Narrative Medical decision making narrative: Chest X-Ray 10/19/18 05:12 IMPRESSION: Pulmonary edema with left basilar atelectasis or pneumonia. D/ / Dameon Alfonso MD / Dameon Alfonso MD Interpreting Provider: Dameon Alfonso MD 0757 hours: Patient's labs are coming back. Her chest x-ray distal pulmonary edema with possible some atelectasis versus pneumonia. She does have a history of COPD so probably be worth covering her for the antibiotics also. Her BMP is also elevated. Her creatinine is elevated but her potassium is not this is consistent with her end-stage renal disease. She also has chronic anemia associated with the same. 0850 hrs.: Patient's been accepted for admission to hospitalist. - Lab Data Result diagrams: 10/19/18 06:23 10/19/18 06:23 Lab Results 10/19/18 10/19/18 10/19/18 Range/Units 06:23 06:23 06:23 WBC 9.0 (4.3-11.1) K/mcL RBC 2.69 L (3.82-4.97) M/mcL Hgb 7.3 L (11.5-15.4) g/dL Hct 26.4 L (35.3-44.9) % MCV 98.1 (83.0-100.0) fL MCH 27.1 L (28.0-33.3) pg MCHC 27.7 L (31.6-35.5) g/dL RDW 19.5 H (11.5-14.5) % Plt Count 294 (140-400) K/mcL MPV 9.9 (9.4-12.4) fL Immature Gran % 0.6 (0-4) % Seg Neutrophils % 82.7 % Lymphocytes % 7.6 % Monocytes % 6.5 % Eosinophils % 2.3 % Basophils % 0.3 % Neutrophils # 7.4 (1.6-8.9) K/mcL Lymphocytes # 0.7 (0.6-4.6) K/mcL Monocytes # 0.6 (0.0-1.3) K/mcL Eosinophils # 0.2 (0.0-0.6) K/mcL Basophils # 0.0 (0.0-0.2) K/mcL Platelet Estimate Normal (Normal) Hypochromasia Present A (Not Present) Sodium 135 L (136-145) mEq/L Potassium 4.9 (3.5-5.1) mEq/L Chloride 102 (98-107) mEq/L Carbon Dioxide 24 (23-29) mEq/L BUN 45 H (8-23) mg/dL Creatinine 3.82 H (0.60-1.20) mg/dL Est GFR ( Amer) 14 L (> 60) Est GFR (Non-Af Amer) 12 L (> 60) BUN/Creatinine Ratio 12 (6-26) Glucose 295 H (70-105) mg/dL Calculated Osmolality 302 H (280-300) Lactic Acid 1.0 (0.5-2.2) mmol/L Calcium 8.7 (8.6-10.3) mg/dL Troponin I 0.03 (< 0.04) ng/mL B-Natriuretic Peptide (Less than 100) pg/mL 10/19/18 Range/Units 06:23 WBC (4.3-11.1) K/mcL RBC (3.82-4.97) M/mcL Hgb (11.5-15.4) g/dL Hct (35.3-44.9) % MCV (83.0-100.0) fL MCH (28.0-33.3) pg MCHC (31.6-35.5) g/dL RDW (11.5-14.5) % Plt Count (140-400) K/mcL MPV (9.4-12.4) fL Immature Gran % (0-4) % Seg Neutrophils % % Lymphocytes % % Monocytes % % Eosinophils % % Basophils % % Neutrophils # (1.6-8.9) K/mcL Lymphocytes # (0.6-4.6) K/mcL Monocytes # (0.0-1.3) K/mcL Eosinophils # (0.0-0.6) K/mcL Basophils # (0.0-0.2) K/mcL Platelet Estimate (Normal) Hypochromasia (Not Present) Sodium (136-145) mEq/L Potassium (3.5-5.1) mEq/L Chloride (98-107) mEq/L Carbon Dioxide (23-29) mEq/L BUN (8-23) mg/dL Creatinine (0.60-1.20) mg/dL Est GFR ( Amer) (> 60) Est GFR (Non-Af Amer) (> 60) BUN/Creatinine Ratio (6-26) Glucose (70-105) mg/dL Calculated Osmolality (280-300) Lactic Acid (0.5-2.2) mmol/L Calcium (8.6-10.3) mg/dL Troponin I (< 0.04) ng/mL B-Natriuretic Peptide 727 H (Less than 100) pg/mL Attestation Statement - Attestation Attestation: This documentation is done with the assistance of Dragon dictation. Despite efforts made to ensure accuracy, there may be inaccuracies in member of technical staff or spelling and typographical errors. I examined this patient and my medical decision-making was reviewed with the Resident Physician. I agree with the documented findings, disposition and treatment plan as described except to the extent set forth below. Patient was seen and evaluated by Dr. Martinez I agree with their evaluation and management plan, I supervised care the patient's stay. Patient was a sign out at 0700 hrs. this morning secondary to possible dyspnea and generalized weakness. She is a dialysis patient last dialyzed on Friday. History of CHF and COPD. She is also seeing wound care due to wounds on her hips which are chronic. They are waiting on labs they are gave her breathing treatments here and she is doing better. We will reassess her and determine if she needs admission which sounds like she probably does.
--- NOTE | 2018-10-19 08:54 | Internal Med History&Physical ---
Date of Encounter: 10/19/18 Time of Encounter: 08:56 Internal Medicine - H&P: HPI History of present illness: Ms. Mars is a 63 year old female with history of ESRD on dialysis TTHS, HFpEF, h/o DVT on Eliquis, DM, HTN, HPL presented to ED for shortness of breath. Onset was since yesterday evening and gradually getting worse. She has severe beaulieu of right hip that makes dialysis completion difficult. She was unable to do a full dialysis treatment two days ago and states she feels fluid buildup. She is also having complaints of fever in the past 5 days with Tmax at home of 101.0 F. She states she had one episode of hemptysis while getting Duo Neb treatments at home. She has some cough with little sputum production. She denies chest pain or palpitations. In the ED patient had CXR that showed pulmonary edema with left basilar atelectasis or pneumonia. BNP was elevated more than baseline at 727, troponin 0.03. On admission she was requiring more than normal O2 to 3L and she was on 2L at home recently. She was given Solu Medrol, Duo Nebs, IV Lasix. Family history reviewed and non-contributory. Past Med Surg Social Fam HX - Past Medical History Medical history: arthritis, CHF, COPD, coronary artery disease, CVA, DVT, diabetes, dialysis, GERD, hyperlipidemia, hypertension, migraine, osteoporosis, renal disease, thyroid disease, TIA, other Additional medical history: OPEN SKIN BREAKDOWN AREAS TO RT HIP, LEFT HIP AND LEFT LOWER ABD, ( SEEING WOULD CLINIC) , DIALYSIS (T- W- TR) WEARS HOME O2 AT 3LPM Psychiatric history: anxiety, depression - Past Surgical History Surgical History: appendectomy, hysterectomy, orthopedic, other, IVC filter Additional surgical history: carpal tunnel surgery left hand. perma cath removed about 3-4m ago. - Social History Smoking Status: Former smoker Smokeless Tobacco Status: No Alcohol use: occasionally Drug use: none - Family History Father Adopted: No Family Member Ethnicity: Non- Living Status: Hx Family Cardiac Disorders: Yes (CHF, HTN) Hx Family GI Disorders: No Hx Family Endocrine Disorder: Yes (DM) Hx Family Neurologic Disorders: Yes Brother Family Member Ethnicity: Non- Living Status: Hx Family Cardiac Disorders: Yes (CHF, SD) Hx Family Endocrine Disorder: Yes (DMII) Sister Family Member Ethnicity: Non- Living Status: Hx Family Cardiac Disorders: Yes (CHF) Hx Family Endocrine Disorder: Yes (DM) Mother Adopted: No Family Member Ethnicity: Non- Living Status: Hx Family Cardiac Disorders: Yes (father CHF) Hx Family Respiratory Disorders: No Hx Family Cancer: Yes (mother liver) Hx Family GI Disorders: No Hx Family Endocrine Disorder: Yes (DM/thyroid disease brothers and sisters) Hx Family Neuromuscular Disorders: No Hx Family Neurologic Disorders: No Hx Family HEENT Disorders: No Hx Family Autoimmune Disorders: Yes (brother lupus) Internal Medicine - H&P: Meds Exenatide Microspheres [Bydureon Pen] 2 mg SQ WE 03/22/15 [History] Nitroglycerin [Nitrostat] 0.4 mg SL Q5M PRN 03/22/15 [History] Omeprazole [PriLOSEC] 40 mg PO DAILY 11/10/16 [History] Gabapentin [Neurontin] 100 mg PO TID #90 capsule 11/27/16 [Rx] Albuterol Sulfate [Ventolin Hfa] 2 puff IH Q4H PRN 08/12/17 [History] Cyclobenzaprine [Flexeril] 10 mg PO TID PRN 08/12/17 [History] Docusate [Colace] 100 mg PO TID PRN 08/12/17 [History] Doxepin HCl 50 mg PO HS 08/12/17 [History] Insulin ASPART [Novolog Flexpen] 32 - 50 unit SQ ACHS 08/12/17 [History] Levothyroxine Sodium [Levoxyl] 250 mcg PO QAM 08/12/17 [History] Ergocalciferol (VITAMIN D2) [Vitamin D2] 50,000 unit PO WE 09/23/17 [History] Rosuvastatin Calcium [Crestor] 10 mg PO QPM 12/26/17 [History] Acetaminophen [Tylenol] 1,000 mg PO BID PRN 06/18/18 [History] Allopurinol [Zyloprim 300 MG] 300 mg PO DAILY 06/18/18 [History] Amlodipine Besylate 10 mg PO HS 06/18/18 [History] Apixaban [Eliquis] 5 mg PO BID 06/18/18 [History] Insulin Glargine,Hum.rec.anlog [Lantus Solostar] 80 unit SQ BID 06/18/18 [History] Meclizine HCl [Verticalm] 25 mg PO TID PRN 06/18/18 [History] Metoprolol Succinate [Toprol Xl] 25 mg PO DAILY 06/18/18 [History] Budesonide/Formoterol 160/4.5 [Symbicort 160/4.5] 2 puff IH BID 07/02/18 [History] Furosemide [Lasix] 40 mg PO BID 08/30/18 [History] Ipratropium/Albuterol Neb [Duoneb] 3 ml IH Q6HR PRN 08/30/18 [History] Ammonium Lactate [Amlactin] 1 appl TP BID PRN #1 bottle 09/01/18 [Rx] Cetirizine HCl [Zyrtec] 10 mg PO DAILY PRN #30 capsule 09/01/18 [Rx] Collagenase Oint [Santyl] 1 appl TP DAILY #1 tube 09/01/18 [Rx] Cyanocobalamin (B-12) [Vitamin B12] 1,000 mcg PO DAILY #30 tablet 09/01/18 [Rx] Nystatin POWDER [Nystop] 1 appl TP TID PRN #1 bottle 09/01/18 [Rx] Gentamicin Oint [Garamycin] 15 appl TP HS 15 Days #1 tube 10/02/18 [Rx] Allergy/AdvReac Type Severity Reaction Status Date / Time aspirin Allergy Hives Verified 10/19/18 05:36 cephalexin [From Keflex] Allergy Difficulty Verified 10/19/18 05:36 Breathing Cortisone Allergy See Verified 10/19/18 05:36 Comments ibuprofen Allergy Hives Verified 10/19/18 05:36 Iodinated Contrast Media Allergy See Verified 10/19/18 05:36 [Iodinated Contrast Media - Comments IV Dye] lidocaine [From Xylocaine] Allergy See Verified 10/19/18 05:36 Comments loratadine [From Claritin] Allergy Hives Verified 10/19/18 05:36 Penicillins Allergy See Verified 10/19/18 05:36 Comments Procaine [From Novocain] Allergy See Verified 10/19/18 05:36 Comments propoxyphene [From Darvon] Allergy See Verified 10/19/18 05:36 Comments pseudoephedrine Allergy Hives Verified 10/19/18 05:36 [From Sudafed] ropinirole [From Requip] Allergy Hallucinati Verified 10/19/18 05:36 ng albuterol AdvReac Shakiness Verified 10/19/18 05:36 ceftriaxone [From Rocephin] AdvReac See Verified 10/19/18 05:36 Comments clindamycin AdvReac Hypotension Verified 10/19/18 05:36 codeine AdvReac Hypertensio Verified 10/19/18 05:36 n doxycycline AdvReac Confusion Verified 10/19/18 05:36 famotidine AdvReac See Verified 10/19/18 05:36 Comments hydrocodone AdvReac See Verified 10/19/18 05:36 Comments hydrocortisone AdvReac Hypertensio Verified 10/19/18 05:36 n ipratropium AdvReac See Verified 10/19/18 05:36 Comments methylprednisolone AdvReac Hypertensio Verified 10/19/18 05:36 [From Solu-Medrol] n Neomycin AdvReac See Verified 10/19/18 05:36 Comments NSAIDS (Non-Steroidal AdvReac See Verified 10/19/18 05:36 Anti-Inflamma Comments prednisone AdvReac Hypertensio Verified 10/19/18 05:36 n Sulfa (Sulfonamide AdvReac See Verified 10/19/18 05:36 Antibiotics) Comments terfenadine AdvReac See Verified 10/19/18 05:36 Comments tramadol AdvReac See Verified 10/19/18 05:36 Comments All Systems PM: A 10-system review of systems was performed and is negative for pertinent findings except as documented above in the HPI. - Constitutional Vitals: Temp Pulse Resp BP Pulse Ox 98.2 F 96 18 142/97 95 10/19/18 06:31 10/19/18 08:15 10/19/18 08:15 10/19/18 08:15 10/19/18 08:15 General appearance: Present: A&O X 3, morbidly obese Exam: . - Head Head exam: Present: atraumatic, normocephalic - Eye Eye exam: Present: PERRL, conjuntiva pink, sclera anicteric Pupils: Present: PERRL - Neck Neck exam general surgery: Present: supple, trachea midline. Absent: lymphadenopathy - Respiratory Respiratory exam: Present: decreased breath sounds, rales, wheezes (faint exp wheezing). Absent: accessory muscle use, rhonchi - Cardiovascular Cardiovascular exam: Present: RRR, +S1, +S2. Absent: diastolic murmur, gallop, rubs, systolic murmur - GI/Abdominal GI/Abdominal exam: Present: normal bowel sounds, soft, no peritoneal signs. Absent: distended, tenderness - Extremities Exam Extremities exam: Present: warm, radial pulses palpable and symmetrical. Absent: calf tenderness, cyanotic, pedal edema - Neurological Exam Neurological exam: Present: CN II-XII intact, oriented X3, no focal deficits. Absent: pronater drift, facial droop, speech deficit - Skin Skin exam: Present: dry, intact Internal Med - H&P Results - Labs CBC & Chem 7: 10/19/18 06:23 10/19/18 06:23 Labs: Short CBC 10/19/18 Range/Units 06:23 WBC 9.0 (4.3-11.1) K/mcL Hgb 7.3 L (11.5-15.4) g/dL Hct 26.4 L (35.3-44.9) % Plt Count 294 (140-400) K/mcL Neutrophils # 7.4 (1.6-8.9) K/mcL BMP 10/19/18 06:23 Sodium 135 L Potassium 4.9 Chloride 102 Carbon Dioxide 24 BUN 45 H Creatinine 3.82 H Glucose 295 H Calcium 8.7 Cardiac Enzymes 10/19/18 Range/Units 06:23 Troponin I 0.03 (< 0.04) ng/mL - Impressions ITS Impressions Chest X-Ray 10/19/18 05:12 IMPRESSION: Pulmonary edema with left basilar atelectasis or pneumonia. D/ / Dameon Alfonso MD / Dameon Alfonso MD Interpreting Provider: Dameon Alfonso MD - Assessment and Plan (1) Acute on chronic respiratory failure with hypoxia Current Visit: No Status: Resolved Assessment and plan: Due to diastolic heart failure with COPD exacerbation as well. Patient admits to non-compliance with diet which is likely contribution. - Fluid restricted diet - Monitor I/Os - Consult to Nephrology - Hold off giving further Lasix for now, Nephrology consulted - Kiersten Power scheduled and prn - Prednisone 40 mg 5 days. - BIPAP as needed (2) Acute decompensated heart failure Current Visit: No Status: Acute Assessment and plan: Will hold off Lasix for now since patient will be evaluated by Nephrology today, she may need additional dialysis today. (3) Acute exacerbation of chronic obstructive airways disease Current Visit: No Status: Acute (4) Anemia in chronic kidney disease, on chronic dialysis Current Visit: No Status: Acute (5) ESRD (end stage renal disease) Current Visit: No Status: Acute (6) Healthcare-associated pneumonia Current Visit: No Status: Acute (7) CHF (congestive heart failure) Current Visit: No Status: Chronic Qualifiers: Heart failure type: diastolic Heart failure chronicity: acute on chronic Qualified Code(s): I50.33 - Acute on chronic diastolic (congestive) heart failure (8) COPD (chronic obstructive pulmonary disease) Current Visit: No Status: Chronic Qualifiers: COPD type: unspecified COPD Qualified Code(s): J44.9 - Chronic obstructive pulmonary disease, unspecified (9) Chronic respiratory failure with hypoxia Current Visit: No Status: Chronic (10) DM (diabetes mellitus), type 2 Current Visit: No Status: Chronic Qualifiers: Diabetes mellitus group home insulin use: with roasterman use Diabetes mellitus complication status: without complication Qualified Code(s): E11.9 - Type 2 diabetes mellitus without complications; Z79.4 - 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 of insulin (11) ESRD (end stage renal disease) on dialysis Current Visit: No Status: Chronic (12) Essential hypertension Current Visit: No Status: Chronic (13) HLD (hyperlipidemia) Current Visit: No Status: Chronic Qualifiers: Hyperlipidemia type: unspecified Qualified Code(s): E78.5 - Hyperlipidemia, unspecified (14) History of DVT (deep vein thrombosis) Current Visit: No Status: Chronic (15) Hypothyroidism Current Visit: No Status: Chronic Qualifiers: Hypothyroidism type: unspecified Qualified Code(s): E03.9 - Hypothyroidism, unspecified (16) Morbid obesity with BMI of 60.0-69.9, adult Current Visit: No Status: Chronic (17) RUPERT (obstructive sleep apnea) Current Visit: No Status: Chronic (18) DVT prophylaxis Current Visit: No Status: Acute Assessment and plan: On Eliquis - Time Spent With Patient Total time spent is greater than 50% in coordination of care (as documented) at patient's floor/unit and/or counseling patient:
[2018-10-19] MEDS ORDERED: Naloxone 0.4 MG/ML INJ IVP PRN (09:02)
--- NOTE | 2018-10-19 09:02 | Emergency Department Note ---
Disposition Clinical Impression: CHF exacerbation Qualifiers: Heart failure type: unspecified Qualified Code(s): I50.9 - Heart failure, unspecified Disposition: Admitted As Inpatient Condition: Fair Referrals: NONE,PCP [Primary Care Provider] - Forms: ED Satisfaction Letter Time of Disposition: 09:02 General Adult HPI - General Chief complaint: ED Shortness of Breath/Dyspnea Stated complaint: JEANNINE Time Seen by Provider: 10/19/18 05:11 Source: patient, EMS Mode of arrival: EMS Limitations: physical limitation - History of Present Illness Pain Scale: 10 - Related Data Home Medications Medication Instructions Recorded Confirmed Exenatide Microspheres [Bydureon 2 mg SQ WE 03/22/15 10/19/18 Pen] Nitroglycerin [Nitrostat] 0.4 mg SL Q5M PRN 03/22/15 10/19/18 Omeprazole [PriLOSEC] 40 mg PO DAILY 11/10/16 10/19/18 Albuterol Sulfate [Ventolin Hfa] 2 puff IH Q4H PRN 08/12/17 10/19/18 Cyclobenzaprine [Flexeril] 10 mg PO TID PRN 08/12/17 10/19/18 Docusate [Colace] 100 mg PO TID PRN 08/12/17 10/19/18 Doxepin HCl 50 mg PO HS 08/12/17 10/19/18 Insulin ASPART [Novolog Flexpen] 32 - 50 unit SQ ACHS 08/12/17 10/19/18 Levothyroxine Sodium [Levoxyl] 250 mcg PO QAM 08/12/17 10/19/18 Ergocalciferol (VITAMIN D2) 50,000 unit PO WE 09/23/17 10/19/18 [Vitamin D2] Rosuvastatin Calcium [Crestor] 10 mg PO QPM 12/26/17 10/19/18 Acetaminophen [Tylenol] 1,000 mg PO BID PRN 06/18/18 10/19/18 Allopurinol [Zyloprim 300 MG] 300 mg PO DAILY 06/18/18 10/19/18 Amlodipine Besylate 10 mg PO HS 06/18/18 10/19/18 Apixaban [Eliquis] 5 mg PO BID 06/18/18 10/19/18 Insulin Glargine,Hum.rec.anlog 80 unit SQ BID 06/18/18 10/19/18 [Lantus Solostar] Meclizine HCl [Verticalm] 25 mg PO TID PRN 06/18/18 10/19/18 Metoprolol Succinate [Toprol Xl] 25 mg PO DAILY 06/18/18 10/19/18 Budesonide/Formoterol 160/4.5 2 puff IH BID 07/02/18 10/19/18 [Symbicort 160/4.5] Furosemide [Lasix] 40 mg PO BID 08/30/18 10/19/18 Ipratropium/Albuterol Neb [Duoneb] 3 ml IH Q6HR PRN 08/30/18 10/19/18 Previous Rx's Medication Instructions Recorded Gabapentin [Neurontin] 100 mg PO TID #90 capsule 11/27/16 Ammonium Lactate [Amlactin] 1 appl TP BID PRN #1 bottle 09/01/18 Cetirizine HCl [Zyrtec] 10 mg PO DAILY PRN #30 capsule 09/01/18 Collagenase Oint [Santyl] 1 appl TP DAILY #1 tube 09/01/18 Cyanocobalamin (B-12) [Vitamin B12] 1,000 mcg PO DAILY #30 tablet 09/01/18 Nystatin POWDER [Nystop] 1 appl TP TID PRN #1 bottle 09/01/18 Gentamicin Oint [Garamycin] 15 appl TP HS 15 Days #1 tube 10/02/18 Allergies Allergy/AdvReac Type Severity Reaction Status Date / Time aspirin Allergy Hives Verified 10/19/18 05:36 cephalexin [From Keflex] Allergy Difficulty Verified 10/19/18 05:36 Breathing Cortisone Allergy See Verified 10/19/18 05:36 Comments ibuprofen Allergy Hives Verified 10/19/18 05:36 Iodinated Contrast Media Allergy See Verified 10/19/18 05:36 [Iodinated Contrast Media - Comments IV Dye] lidocaine [From Xylocaine] Allergy See Verified 10/19/18 05:36 Comments loratadine [From Claritin] Allergy Hives Verified 10/19/18 05:36 Penicillins Allergy See Verified 10/19/18 05:36 Comments Procaine [From Novocain] Allergy See Verified 10/19/18 05:36 Comments propoxyphene [From Darvon] Allergy See Verified 10/19/18 05:36 Comments pseudoephedrine Allergy Hives Verified 10/19/18 05:36 [From Sudafed] ropinirole [From Requip] Allergy Hallucinati Verified 10/19/18 05:36 ng albuterol AdvReac Shakiness Verified 10/19/18 05:36 ceftriaxone [From Rocephin] AdvReac See Verified 10/19/18 05:36 Comments clindamycin AdvReac Hypotension Verified 10/19/18 05:36 codeine AdvReac Hypertensio Verified 10/19/18 05:36 n doxycycline AdvReac Confusion Verified 10/19/18 05:36 famotidine AdvReac See Verified 10/19/18 05:36 Comments hydrocodone AdvReac See Verified 10/19/18 05:36 Comments hydrocortisone AdvReac Hypertensio Verified 10/19/18 05:36 n ipratropium AdvReac See Verified 10/19/18 05:36 Comments methylprednisolone AdvReac Hypertensio Verified 10/19/18 05:36 [From Solu-Medrol] n Neomycin AdvReac See Verified 10/19/18 05:36 Comments NSAIDS (Non-Steroidal AdvReac See Verified 10/19/18 05:36 Anti-Inflamma Comments prednisone AdvReac Hypertensio Verified 10/19/18 05:36 n Sulfa (Sulfonamide AdvReac See Verified 10/19/18 05:36 Antibiotics) Comments terfenadine AdvReac See Verified 10/19/18 05:36 Comments tramadol AdvReac See Verified 10/19/18 05:36 Comments Past Medical History - Past Medical History Medical history: Reports: arthritis, CHF, COPD, coronary artery disease, CVA, DVT, diabetes, dialysis, GERD, hyperlipidemia, hypertension, migraine, osteoporosis, renal disease, thyroid disease, TIA, other Surgical history: Reports: appendectomy, hysterectomy, orthopedic, other, IVC filter Psychiatric history: Reports: anxiety, depression 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 - Social History Smoking Status: Former smoker Smokeless Tobacco Status: No Alcohol use: Reports: occasionally Drug use: Reports: none Physical Exam - General Limitations: physical limitation General appearance: alert Course Vital Signs Temperature 98.2 F 10/19/18 05:23 Pulse Rate 84 10/19/18 05:23 Respiratory Rate 24 09/09/19 05:23 O2 Sat by Pulse Oximetry 98 10/19/18 05:23 Temperature 98.2 F 10/19/18 06:31 Pulse Rate 96 10/19/18 08:15 Respiratory Rate 18 10/19/18 08:15 Blood Pressure 142/97 10/19/18 08:15 O2 Sat by Pulse Oximetry 95 10/19/18 08:15 Oxygen Delivery Oxygen Delivery Nasal Cannula Medical Decision Making - MDM Narrative Medical decision making narrative: I received this patient in signout from Dr. Morton and Dr. Olson please see their note for full results of history and physical, as well as interventions that were given before I took over care of the patient. Patient is a 63-year-old female with a past medical history of COPD, CHF, diabetes, morbid obesity complains of shortness of breath increasing over the last 2-3 days. Patient is not complaining of any increased sputum production, cough, sudden onset fevers and chills. Patient does not appear to have pneumonia. Patient's BNP is elevated over baseline, bilateral lower extremities show 2+ pitting edema. Patient appears to be a CHF exacerbation. Patient was admitted to the ospitalist Dr. El who agreed to accept the patient to his service. Chest x- ray was read as possible left sided atelectasis versus pneumonia, however when comparing the current chest x-ray to previous chest x-rays as well as clinical picture patient does not appear to have pneumonia at this time. Results of the workup including any imaging and/or labwork was shared with the patient at bedside. Patient was given an opportunity to ask questions at bedside and all of their concerns were addressed. Patient verbalized understanding and agreement with plan of care. Pt remained stable while in the department. - Medical Records Medical records reviewed: Yes I reviewed the patient's medical records. - Lab Data Lab results reviewed: Yes I reviewed the patient's lab results. Result diagrams: 10/19/18 06:23 10/19/18 06:23 Lab Results 10/19/18 10/19/18 10/19/18 Range/Units 06:23 06:23 06:23 WBC 9.0 (4.3-11.1) K/mcL RBC 2.69 L (3.82-4.97) M/mcL Hgb 7.3 L (11.5-15.4) g/dL Hct 26.4 L (35.3-44.9) % MCV 98.1 (83.0-100.0) fL MCH 27.1 L (28.0-33.3) pg MCHC 27.7 L (31.6-35.5) g/dL RDW 19.5 H (11.5-14.5) % Plt Count 294 (140-400) K/mcL MPV 9.9 (9.4-12.4) fL Immature Gran % 0.6 (0-4) % Seg Neutrophils % 82.7 % Lymphocytes % 7.6 % Monocytes % 6.5 % Eosinophils % 2.3 % Basophils % 0.3 % Neutrophils # 7.4 (1.6-8.9) K/mcL Lymphocytes # 0.7 (0.6-4.6) K/mcL Monocytes # 0.6 (0.0-1.3) K/mcL Eosinophils # 0.2 (0.0-0.6) K/mcL Basophils # 0.0 (0.0-0.2) K/mcL Platelet Estimate Normal (Normal) Hypochromasia Present A (Not Present) Sodium 135 L (136-145) mEq/L Potassium 4.9 (3.5-5.1) mEq/L Chloride 102 (98-107) mEq/L Carbon Dioxide 24 (23-29) mEq/L BUN 45 H (8-23) mg/dL Creatinine 3.82 H (0.60-1.20) mg/dL Est GFR ( Amer) 14 L (> 60) Est GFR (Non-Af Amer) 12 L (> 60) BUN/Creatinine Ratio 12 (6-26) Glucose 295 H (70-105) mg/dL Calculated Osmolality 302 H (280-300) Lactic Acid 1.0 (0.5-2.2) mmol/L Calcium 8.7 (8.6-10.3) mg/dL Troponin I 0.03 (< 0.04) ng/mL B-Natriuretic Peptide (Less than 100) pg/mL 10/19/18 Range/Units 06:23 WBC (4.3-11.1) K/mcL RBC (3.82-4.97) M/mcL Hgb (11.5-15.4) g/dL Hct (35.3-44.9) % MCV (83.0-100.0) fL MCH (28.0-33.3) pg MCHC (31.6-35.5) g/dL RDW (11.5-14.5) % Plt Count (140-400) K/mcL MPV (9.4-12.4) fL Immature Gran % (0-4) % Seg Neutrophils % % Lymphocytes % % Monocytes % % Eosinophils % % Basophils % % Neutrophils # (1.6-8.9) K/mcL Lymphocytes # (0.6-4.6) K/mcL Monocytes # (0.0-1.3) K/mcL Eosinophils # (0.0-0.6) K/mcL Basophils # (0.0-0.2) K/mcL Platelet Estimate (Normal) Hypochromasia (Not Present) Sodium (136-145) mEq/L Potassium (3.5-5.1) mEq/L Chloride (98-107) mEq/L Carbon Dioxide (23-29) mEq/L BUN (8-23) mg/dL Creatinine (0.60-1.20) mg/dL Est GFR ( Amer) (> 60) Est GFR (Non-Af Amer) (> 60) BUN/Creatinine Ratio (6-26) Glucose (70-105) mg/dL Calculated Osmolality (280-300) Lactic Acid (0.5-2.2) mmol/L Calcium (8.6-10.3) mg/dL Troponin I (< 0.04) ng/mL B-Natriuretic Peptide 727 H (Less than 100) pg/mL - Radiology Data Radiology results reviewed: Yes I reviewed the patient's radiology results. Chest X-Ray 10/19/18 05:12 IMPRESSION: Pulmonary edema with left basilar atelectasis or pneumonia. D/ / Dameon Alfonso MD / Dameon Alfonso MD Interpreting Provider: Dameon Alfonso MD
[2018-10-19] MEDS ORDERED: Nystatin POWDER 30 GM BOTTLE TP PRN (09:05)
[2018-10-19] MEDS ORDERED: Cetirizine HCl 5 MG/5 ML UDC PO PRN (09:05)
[2018-10-19] MEDS ORDERED: Nitroglycerin 0.4 MG TAB.SUBL SL PRN (09:05)
[2018-10-19] MEDS ORDERED: Ammonium Lactate 30 APPL/225 GM BOTTLE TP PRN (09:05)
[2018-10-19] MEDS ORDERED: Ipratropium/Albuterol Neb 3 ML IH PRN ×2 (09:12→12:00)
--- NOTE | 2018-10-19 09:24 | Electrocardiograph Report ---
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
[2018-10-19] MEDS ORDERED: levoFLOXacin 750 MG TABLET PO ONE (10:28)
[2018-10-19] MEDS: predniSONE 20 MG TABLET PO SCH (12:10)
[2018-10-19] MEDS: Insulin LISPRO 300 UNITS/3 ML VIAL SQ SCH ×3 (12:11→20:32)
[2018-10-19 13:15] LABS: Adenovirus Not Detected (Not Detect); Bordetella Pertussis Not Detected (Not Detect); Chlamydophila pneumoniae Not Detected (Not Detect); Coronavirus 229E Not Detected (Not Detect); Coronavirus HKU1 Not Detected (Not Detect); Coronavirus NL63 Not Detected (Not Detect); Coronavirus OC43 Not Detected (Not Detect); Human Metapneumovirus Not Detected (Not Detect); Human Rhinovirus/Enterovirus Not Detected (Not Detect); Influenza A Subtype 2009 H1 Not Detected (Not Detect); Influenza A Untypeable Not Detected (Not Detect); Influenza B Not Detected (Not Detect); Mycoplasma pneumoniae Not Detected (Not Detect); Parainfluenza Virus 1 Not Detected (Not Detect); Parainfluenza Virus 2 Not Detected (Not Detect); Parainfluenza Virus 3 Not Detected (Not Detect); Parainfluenza Virus 4 Not Detected (Not Detect); Respiratory Syncytial Virus Not Detected (Not Detect)
[2018-10-19] MEDS ORDERED: 0.9 % Sodium Chloride 250 ML IVC PRN (13:49)
[2018-10-19] MEDS ORDERED: 0.9 % Sodium Chloride 1,000 ML PRIME SCH (14:00)
[2018-10-19] MEDS: Gabapentin 100 MG CAPSULE PO SCH ×2 (15:15→20:31)
[2018-10-19] MEDS: Ipratropium/Albuterol Neb 3 ML IH SCH ×2 (15:39→22:06)
[2018-10-19] MEDS ORDERED: MethylPREDNISolone 40 MG/ML VIAL IVP SCH (16:00)
--- NOTE | 2018-10-19 16:41 | Nephrology Consult Note ---
Date of Encounter: 10/19/18 Time of Encounter: 12:50 Assessment and Plan (1) ESRD (end stage renal disease) Current Visit: No Status: Chronic End-stage renal disease on thrice weekly hemodialysis and typically TTS but due to the fluid overload, she has indications for HD today (Friday): I reviewed the patient's labs, vital signs, progress notes, imaging and medication lists, which required complex evaluation and management and medical decision making to compose the patient's dialysis orders. For patients with end-stage renal disease, as always, I recommend following strict I's and O's, daily weights, renal diet, avoidance of nephrotoxic agents, renal dosing. This complex pt required a very high degree of E/M and MDM. HD indicated today and plan for resuming her typical HD tomorrow. Wound care as per primary. Will follow with you. (2) Anemia in chronic kidney disease, on chronic dialysis Current Visit: No Status: Chronic Goal Hgb is 10-11; EPO and / or IV iron as needed. (3) Acute decompensated heart failure Current Visit: No Status: Acute Worsening CHF and edema. HD indicated today (4) Acute exacerbation of chronic obstructive airways disease Current Visit: No Status: Acute Acute respiratory distress with her edema. HD indicated today for extra dialysis (5) Hyponatremia Current Visit: No Status: Acute Hypervolemic hyponatremia: HD indicated today. History of Present Illness - Reason for Consult Consult date: 10/19/18 end stage renal disease Requesting physician: Pedro El - Chief Complaint ESRD with fluid overload - History of Present Illness The patient is a very pleasant 63-year-old morbidly obese female with a past medical history of end-stage renal disease on hemodialysis every Friday//Friday with ongoing right posterior but talks wound who presented with worsening fluid overload. She said that she has been going to her dialysis treatments every Friday//Friday; however, she is not been able to sit for more than 2 hours of her long for our treatments. She said that her posterior wound limits her ability to comfortably sit through all of dialysis. She was accompanied by her spouse were affirms this was the case. She did not affirm having active chest pain, nausea, vomiting, diarrhea, but did affirm having worsening shortness of breath and swelling. She affirmed that she was not taking NSAIDs. Dialysis history: She dialyzes every Friday//Friday at [facility]. Past Med Surg Social Fam HX - Past Medical History Medical history: arthritis, CHF, COPD, coronary artery disease, CVA, DVT, diabetes, dialysis, GERD, hyperlipidemia, hypertension, migraine, osteoporosis, renal disease, thyroid disease, TIA, other Additional medical history: OPEN SKIN BREAKDOWN AREAS TO RT HIP, LEFT HIP AND LEFT LOWER ABD, ( SEEING WOULD CLINIC) , DIALYSIS (T- W- TR) WEARS HOME O2 AT 3LPM Psychiatric history: anxiety, depression - Past Surgical History Surgical History: appendectomy, hysterectomy, orthopedic, other, IVC filter Additional surgical history: carpal tunnel surgery left hand. perma cath removed about 3-4m ago. - Social History Smoking Status: Former smoker Smokeless Tobacco Status: No Alcohol use: occasionally Drug use: none - Family History Father Adopted: No Family Member Ethnicity: Non- Living Status: Hx Family Cardiac Disorders: Yes (CHF, HTN) Hx Family GI Disorders: No Hx Family Endocrine Disorder: Yes (DM) Hx Family Neurologic Disorders: Yes Brother Family Member Ethnicity: Non- Living Status: Hx Family Cardiac Disorders: Yes (CHF, CA) Hx Family Endocrine Disorder: Yes (DMII) Sister Family Member Ethnicity: Non- Living Status: Hx Family Cardiac Disorders: Yes (CHF) Hx Family Endocrine Disorder: Yes (DM) Mother Adopted: No Family Member Ethnicity: Non- Living Status: Hx Family Cardiac Disorders: Yes (father CHF) Hx Family Respiratory Disorders: No Hx Family Cancer: Yes (mother liver) Hx Family GI Disorders: No Hx Family Endocrine Disorder: Yes (DM/thyroid disease brothers and sisters) Hx Family Neuromuscular Disorders: No Hx Family Neurologic Disorders: No Hx Family HEENT Disorders: No Hx Family Autoimmune Disorders: Yes (brother lupus) Medications and Allergies RX: Exenatide Microspheres [Bydureon Pen] 2 mg SQ WE 03/22/15 [History] RX: Nitroglycerin [Nitrostat] 0.4 mg SL Q5M PRN 03/22/15 [History] RX: Omeprazole [PriLOSEC] 40 mg PO DAILY 11/10/16 [History] RX: Gabapentin [Neurontin] 100 mg PO TID #90 capsule 11/27/16 [Rx] RX: Albuterol Sulfate [Ventolin Hfa] 2 puff IH Q4H PRN 08/12/17 [History] RX: Cyclobenzaprine [Flexeril] 10 mg PO TID PRN 08/12/17 [History] RX: Docusate [Colace] 100 mg PO TID PRN 08/12/17 [History] RX: Doxepin HCl 50 mg PO HS 08/12/17 [History] RX: Insulin ASPART [Novolog Flexpen] 32 - 50 unit SQ ACHS 08/12/17 [History] RX: Levothyroxine Sodium [Levoxyl] 250 mcg PO QAM 08/12/17 [History] RX: Ergocalciferol (VITAMIN D2) [Vitamin D2] 50,000 unit PO WE 09/23/17 [History] RX: Rosuvastatin Calcium [Crestor] 10 mg PO QPM 12/26/17 [History] RX: Acetaminophen [Tylenol] 1,000 mg PO BID PRN 06/18/18 [History] RX: Allopurinol [Zyloprim 300 MG] 300 mg PO DAILY 06/18/18 [History] RX: Amlodipine Besylate 10 mg PO HS 06/18/18 [History] RX: Apixaban [Eliquis] 5 mg PO BID 06/18/18 [History] RX: Insulin Glargine,Hum.rec.anlog [Lantus Solostar] 80 unit SQ BID 06/18/18 [History] RX: Meclizine HCl [Verticalm] 25 mg PO TID PRN 06/18/18 [History] RX: Metoprolol Succinate [Toprol Xl] 25 mg PO DAILY 06/18/18 [History] RX: Budesonide/Formoterol 160/4.5 [Symbicort 160/4.5] 2 puff IH BID 07/02/18 [History] RX: Furosemide [Lasix] 40 mg PO BID 08/30/18 [History] RX: Ipratropium/Albuterol Neb [Duoneb] 3 ml IH Q6HR PRN 08/30/18 [History] RX: Ammonium Lactate [Amlactin] 1 appl TP BID PRN #1 bottle 09/01/18 [Rx] RX: Cetirizine HCl [Zyrtec] 10 mg PO DAILY PRN #30 capsule 09/01/18 [Rx] RX: Collagenase Oint [Santyl] 1 appl TP DAILY #1 tube 09/01/18 [Rx] RX: Cyanocobalamin (B-12) [Vitamin B12] 1,000 mcg PO DAILY #30 tablet 09/01/18 [Rx] RX: Nystatin POWDER [Nystop] 1 appl TP TID PRN #1 bottle 09/01/18 [Rx] clonazePAM [Clonazepam] 1 mg PO HS 10/19/18 [History] Allergy/AdvReac Type Severity Reaction Status Date / Time aspirin Allergy Hives Verified 10/19/18 05:36 cephalexin [From Keflex] Allergy Difficulty Verified 10/19/18 05:36 Breathing Cortisone Allergy See Verified 10/19/18 05:36 Comments ibuprofen Allergy Hives Verified 10/19/18 05:36 Iodinated Contrast Media Allergy See Verified 10/19/18 05:36 [Iodinated Contrast Media - Comments IV Dye] lidocaine [From Xylocaine] Allergy See Verified 10/19/18 05:36 Comments loratadine [From Claritin] Allergy Hives Verified 10/19/18 05:36 Penicillins Allergy See Verified 10/19/18 05:36 Comments Procaine [From Novocain] Allergy See Verified 10/19/18 05:36 Comments propoxyphene [From Darvon] Allergy See Verified 10/19/18 05:36 Comments pseudoephedrine Allergy Hives Verified 10/19/18 05:36 [From Sudafed] ropinirole [From Requip] Allergy Hallucinati Verified 10/19/18 05:36 ng albuterol AdvReac Shakiness Verified 10/19/18 05:36 ceftriaxone [From Rocephin] AdvReac See Verified 10/19/18 05:36 Comments clindamycin AdvReac Hypotension Verified 10/19/18 05:36 codeine AdvReac Hypertensio Verified 10/19/18 05:36 n doxycycline AdvReac Confusion Verified 10/19/18 05:36 famotidine AdvReac See Verified 10/19/18 05:36 Comments hydrocodone AdvReac See Verified 10/19/18 05:36 Comments hydrocortisone AdvReac Hypertensio Verified 10/19/18 05:36 n ipratropium AdvReac See Verified 10/19/18 05:36 Comments methylprednisolone AdvReac Hypertensio Verified 10/19/18 05:36 [From Solu-Medrol] n Neomycin AdvReac See Verified 10/19/18 05:36 Comments NSAIDS (Non-Steroidal AdvReac See Verified 10/19/18 05:36 Anti-Inflamma Comments prednisone AdvReac Hypertensio Verified 10/19/18 05:36 n Sulfa (Sulfonamide AdvReac See Verified 10/19/18 05:36 Antibiotics) Comments terfenadine AdvReac See Verified 10/19/18 05:36 Comments tramadol AdvReac See Verified 10/19/18 05:36 Comments Review of Systems All Systems: reviewed and no additional remarkable complaints except as stated Exam - Vital Signs Vital signs: Initial Vital Signs Temp Pulse Resp Pulse Ox 98.2 F 84 24 98 10/19/18 05:23 10/19/18 05:23 10/19/18 05:23 10/19/18 05:23 Vital Signs - Last 8 Hours Temp Pulse Resp BP Pulse Ox 10/19/18 11:54 97.9 F 98 18 196/90 95 10/19/18 09:15 93 18 144/67 95 Intake and Output 10/19/18 10/19/18 10/19/18 07:59 15:59 23:59 Intake Total 240 / 240 Balance 240 / 240 Intake: Oral 240 / 240 Other: Meal Lunch Percent of Meal Consumed 90% Weight 167.376 kg Blood Glucose* 426 450 Patient Weight 10/19/18 23:59 Weight 167.376 kg - General Appearance General appearance: well-developed, well-nourished, appears started age, obese EENT: ATNC, PERRL, mucous membranes moist Neck: no JVD, supple Respiratory: no kyphosis, course breath sounds Cardiology: edema, regular rate, regular rhythm, normal S1, normal S2 - Dialysis Access Dialysis Vascular Access: Arteriovenous Graft (Left upper extremity) thrill: Yes bruit: Yes Gastrointestinal: normoactive bowel sounds, no tenderness, no guarding Integumentary: decubiti (right posterior wound with dressing C/D/I) Neurologic: no focal deficit, no asterixis, alert and oriented x3 Musculoskeletal: no erythema, no cyanosis Psychiatric: mood/affect appropriate, cooperative Results - Lab Results 10/19/18 06:23 10/19/18 06:23 Most recent lab results 10/19/18 06:23 Calcium 8.7 Consult Discharge Plan - Plan Referrals: NONE,PCP [Primary Care Provider] -
[2018-10-19] MEDS: amLODIPine 5 MG TABLET PO SCH (20:30)
[2018-10-19] MEDS: Apixaban 5 MG TABLET PO SCH (20:30)
[2018-10-19] MEDS: Insulin DETEMIR 100 UNIT/ML X5UNITS SQ SCH (20:33)
[2018-10-19] MEDS: Gentamicin Oint 15 GM TUBE TP SCH (20:38)
[2018-10-19] MEDS: Budesonide/Formoterol 160/4.5 1 PUFF INH IH SCH (22:06)
[2018-10-20] MEDS: Ipratropium/Albuterol Neb 3 ML IH SCH ×4 (04:08→22:27)
[2018-10-20 04:25] LABS: Basophils % 0.1 %
[2018-10-20 04:26] LABS: Hematocrit 24.5 % (35.3-44.9); Immature Granulocytes % 0.4 % (0-4); Lymphocytes # 0.5 K/mcL (0.6-4.6); Lymphocytes % 6.7 %; Mean Corpuscular HGB Conc 28.6 g/dL (31.6-35.5); Mean Corpuscular Hemoglobin 27.3 pg (28.0-33.3); Mean Corpuscular Volume 95.7 fL (83.0-100.0); Mean Platelet Volume 10.1 fL (9.4-12.4); Monocytes # 0.4 K/mcL (0.0-1.3); Monocytes % 5.2 %; Neutrophils # 6.3 K/mcL (1.6-8.9); Platelet Count 275 K/mcL (140-400); Red Blood Count 2.56 M/mcL (3.82-4.97); Red Cell Distribution Width 19.2 % (11.5-14.5); Segmented Neutrophils % 87.6 %; White Blood Count 7.2 K/mcL (4.3-11.1)
[2018-10-20 04:51] LABS: Anisocytosis 2+ (Not Present); Calcium 8.7 mg/dL (8.6-10.3); Macrocytosis Present (Not Present); Microcytosis Present (Not Present); Platelet Estimate Normal (Normal); Potassium 6.1 mEq/L (3.5-5.1)
[2018-10-20] MEDS ORDERED: 0.9 % Sodium Chloride 250 ML IVC PRN (07:52)
[2018-10-20] MEDS: Cyanocobalamin (B-12) 1,000 MCG TABLET PO SCH (08:42)
[2018-10-20] MEDS: Gabapentin 100 MG CAPSULE PO SCH ×3 (08:43→21:09)
[2018-10-20] MEDS: Apixaban 5 MG TABLET PO SCH ×2 (08:43→21:09)
[2018-10-20] MEDS: predniSONE 20 MG TABLET PO SCH (08:43)
[2018-10-20] MEDS: Insulin DETEMIR 100 UNIT/ML X5UNITS SQ SCH ×2 (08:50→21:08)
[2018-10-20] MEDS: Insulin LISPRO 300 UNITS/3 ML VIAL SQ SCH ×4 (08:51→21:09)
[2018-10-20] MEDS: Metoprolol XL (24 HR) Succ 25 MG TAB.ER.24H PO SCH (09:04)
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
[2018-10-20] MEDS: Budesonide/Formoterol 160/4.5 1 PUFF INH IH SCH ×2 (09:57→22:27)
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
[2018-10-20] MEDS ORDERED: Insulin DETEMIR 100 UNIT/ML X5UNITS SQ ONE (11:02)
[2018-10-20] MEDS ORDERED: Furosemide 40 MG TABLET PO SCH (15:00)
[2018-10-20] MEDS: Furosemide 40 MG TABLET PO SCH (17:45)
[2018-10-20] MEDS: amLODIPine 5 MG TABLET PO SCH (21:09)
[2018-10-20] MEDS: Gentamicin Oint 15 GM TUBE TP SCH (21:09)
[2018-10-21] MEDS: Ipratropium/Albuterol Neb 3 ML IH SCH ×2 (03:47→10:38)
[2018-10-21 05:06] LABS: Calcium 8.4 mg/dL (8.6-10.3); Potassium 4.5 mEq/L (3.5-5.1)
[2018-10-21 07:06] VITALS: BP 117/57
[2018-10-21] MEDS: Insulin LISPRO 300 UNITS/3 ML VIAL SQ SCH (07:44)
[2018-10-21] MEDS: Apixaban 5 MG TABLET PO SCH (07:47)
[2018-10-21] MEDS: Metoprolol XL (24 HR) Succ 25 MG TAB.ER.24H PO SCH (07:47)
[2018-10-21] MEDS: Furosemide 40 MG TABLET PO SCH (07:47)
[2018-10-21] MEDS: Cyanocobalamin (B-12) 1,000 MCG TABLET PO SCH (07:47)
[2018-10-21] MEDS: Gabapentin 100 MG CAPSULE PO SCH (07:47)
[2018-10-21] MEDS: Insulin DETEMIR 100 UNIT/ML X5UNITS SQ SCH (07:53)
[2018-10-21] MEDS ORDERED: levoFLOXacin 500 MG TABLET PO SCH (09:00)
[2018-10-21] MEDS ORDERED: Ergocalciferol (VIT D2) 50,000 UNIT (1.25MG) CAP PO SCH (09:05)
[2018-10-21] MEDS ORDERED: NON-FORMULARY MEDICATION 1 EACH EACH (Exenatide Microspheres [Bydureon Pen] 2 MG) SQ SCH (09:05)
[2018-10-21] MEDS ORDERED: Albuterol 2.5 MG/3 ML NEBULIZER IH PRN (09:48)
--- NOTE | 2018-10-21 09:56 | Nephrology Progress Note ---
Date of Encounter: 10/21/18 Time of Encounter: 09:53 - Assessment and Plan (1) ESRD (end stage renal disease) Current Visit: No Status: Chronic Current regimen is TTS at [facility]. HD completed yesterday without complication. No need for UF today, pt tolerated HD well. Renal diet Renal vitamins Strict I/O Avoid nephrotoxins and renal dose all medications. Will order additional UF or HD as needed. Continue lasix with discharge. Outpatient HD tomorrow at [facility]. (2) Acute exacerbation of chronic obstructive airways disease Current Visit: No Status: Acute Per primary, appreciate recommendations. Code(s): J44.1 - Chronic obstructive pulmonary disease with (acute) exacerbation (3) Hyponatremia Current Visit: No Status: Acute Na 135, resolved. (4) Anemia in chronic kidney disease, on chronic dialysis Current Visit: No Status: Chronic Goal Hgb is 10-11; EPO and / or IV iron as needed. Continue EPO (5) Acute decompensated heart failure Current Visit: No Status: Acute Worsening CHF and edema. Lasix increased, continue with discharge. Subjective Principal diagnosis: difficulty in breathing Interval history: Pt seen and examined is sitting up on side of bed, doing well. Denies chest pain or shortness of breath. Denies nausea, vomiting, diarrhea. Is overall feeling better and wants to go home. Objective - Vital Signs Vital signs: Vital Signs Temp Pulse Resp BP Pulse Ox 10/21/18 07:02 97.9 F 82 18 117/57 98 10/21/18 03:30 98 F 85 19 149/72 98 10/20/18 23:51 89 127/71 10/20/18 23:09 98.5 F 92 19 180/69 96 10/20/18 22:27 20 98 10/20/18 18:47 98.2 F 97 19 154/65 92 10/20/18 16:06 17 95 10/20/18 16:00 97.8 F 97 16 154/60 93 10/20/18 12:55 98.6 F 17 171/55 10/20/18 12:30 160/47 10/20/18 12:15 123/96 10/20/18 12:00 137/91 10/20/18 11:45 123/96 10/20/18 11:30 158/45 10/20/18 11:15 172/43 10/20/18 11:00 166/48 10/20/18 10:45 180/40 10/20/18 10:30 183/78 10/20/18 10:15 185/44 10/20/18 10:00 155/51 Intake and Output 10/20/18 10/21/18 10/21/18 23:59 07:59 15:59 Output Total 200 / 4056 Balance -200 / -2956 Output: Urine 200 / 200 Other: Weight 155.6 kg Blood Glucose* 447 310 - General Appearance General appearance: Present: well-developed, well-nourished, obese EENT: Present: ATNC, hearing intact, vision intact Neck: Present: supple Respiratory: Present: clear Cardiology: Present: no edema, normal S1, normal S2 Dialysis Vascular Access: Arteriovenous Fistula thrill: Yes bruit: Yes Gastrointestinal: Present: normoactive bowel sounds, no tenderness, no guarding Integumentary: Present: no rash, warm and dry Neurologic: Present: alert and oriented x3 Musculoskeletal: Present: no deformities, no erythema Psychiatric: Present: mood/affect appropriate, cooperative - Lab 10/20/18 03:50 10/21/18 04:34 Most recent lab results 10/21/18 04:34 Calcium 8.4 L Consult Discharge Plan - Plan Referrals: NONE,PCP [Primary Care Provider] -
[2018-10-21] MEDS ORDERED: FLU Vac QV 19-20 (6Month+)/PF 0.5 ML SYRINGE IM ONE (10:37)
[2018-10-21] MEDS: Budesonide/Formoterol 160/4.5 1 PUFF INH IH SCH (10:38)
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
--- NOTE | 2018-10-21 13:42 | Physician Discharge Referral ---
Home Health/Hosp Referral Info Transfer to: Home Health Provider in Charge Post Discharge: PCP - Diagnosis (1) ESRD (end stage renal disease) Priority: Primary Status: Chronic (2) History of DVT (deep vein thrombosis) Priority: Secondary Status: Chronic (3) DM (diabetes mellitus), type 2 Priority: Secondary Status: Chronic (4) Morbid obesity with BMI of 60.0-69.9, adult Priority: Secondary Status: Chronic (5) Acute and chronic respiratory failure with hypoxia Priority: Secondary Status: Acute - Respiratory Orders Oxygen / L per min (3L/min) Smoking Cessation: Smoking cessation has been advised. For more information, call the [place] Tobacco Quit Line at 5-773-RKRI-NOW. - Diet/Nutrition Diet/Nutrition Orders: Renal, Cardiac - Activity Activity Orders: Up ad [place] - Services Needed Following services are medically necessary services: Nursing, Physical Therapy, Occupational Therapy - Transfer Medications Prescriptions: Furosemide [Lasix] 40 mg PO TIDDIURETIC #90 tablet levoFLOXacin [Levaquin] 500 mg PO Q48H 4 Days #2 tablet Home Medications: Exenatide Microspheres [Bydureon Pen] 2 mg SQ WE 03/22/15 [History] Nitroglycerin [Nitrostat] 0.4 mg SL Q5M PRN 03/22/15 [History] Omeprazole [PriLOSEC] 40 mg PO DAILY 11/10/16 [History] Gabapentin [Neurontin] 100 mg PO TID #90 capsule 11/27/16 [Rx] Albuterol Sulfate [Ventolin Hfa] 2 puff IH Q4H PRN 08/12/17 [History] Cyclobenzaprine [Flexeril] 10 mg PO TID PRN 08/12/17 [History] Docusate [Colace] 100 mg PO TID PRN 08/12/17 [History] Doxepin HCl 50 mg PO HS 08/12/17 [History] Insulin ASPART [Novolog Flexpen] 32 - 50 unit SQ ACHS 08/12/17 [History] Levothyroxine Sodium [Levoxyl] 250 mcg PO QAM 08/12/17 [History] Ergocalciferol (VITAMIN D2) [Vitamin D2] 50,000 unit PO WE 09/23/17 [History] Rosuvastatin Calcium [Crestor] 10 mg PO QPM 12/26/17 [History] Acetaminophen [Tylenol] 1,000 mg PO BID PRN 06/18/18 [History] Allopurinol [Zyloprim 300 MG] 300 mg PO DAILY 06/18/18 [History] Amlodipine Besylate 10 mg PO HS 06/18/18 [History] Apixaban [Eliquis] 5 mg PO BID 06/18/18 [History] Insulin Glargine,Hum.rec.anlog [Lantus Solostar] 80 unit SQ BID 06/18/18 [History] Meclizine HCl [Verticalm] 25 mg PO TID PRN 06/18/18 [History] Metoprolol Succinate [Toprol Xl] 25 mg PO DAILY 06/18/18 [History] Budesonide/Formoterol 160/4.5 [Symbicort 160/4.5] 2 puff IH BID 07/02/18 [History] Ipratropium/Albuterol Neb [Duoneb] 3 ml IH Q6HR PRN 08/30/18 [History] Ammonium Lactate [Amlactin] 1 appl TP BID PRN #1 bottle 09/01/18 [Rx] Cetirizine HCl [Zyrtec] 10 mg PO DAILY PRN #30 capsule 09/01/18 [Rx] Collagenase Oint [Santyl] 1 appl TP DAILY #1 tube 09/01/18 [Rx] Cyanocobalamin (B-12) [Vitamin B12] 1,000 mcg PO DAILY #30 tablet 09/01/18 [Rx] Nystatin POWDER [Nystop] 1 appl TP TID PRN #1 bottle 09/01/18 [Rx] clonazePAM [Clonazepam] 1 mg PO HS 10/19/18 [History] Epoetin Abram [Procrit] 8,000 unit SQ TuThSa vial 10/21/18 [Rx] Furosemide [Lasix] 40 mg PO TIDDIURETIC #90 tablet 10/21/18 [Rx] Gentamicin Oint [Garamycin] 1 appl TP HS tube 10/21/18 [Rx] levoFLOXacin [Levaquin] 500 mg PO Q48H 4 Days #2 tablet 10/21/18 [Rx] Allergies/Adverse Reactions: Allergy/AdvReac Type Severity Reaction Status Date / Time aspirin Allergy Hives Verified 10/19/18 05:36 cephalexin [From Keflex] Allergy Difficulty Verified 10/19/18 05:36 Breathing Cortisone Allergy See Verified 10/19/18 05:36 Comments ibuprofen Allergy Hives Verified 10/19/18 05:36 Iodinated Contrast Media Allergy See Verified 10/19/18 05:36 [Iodinated Contrast Media - Comments IV Dye] lidocaine [From Xylocaine] Allergy See Verified 10/19/18 05:36 Comments loratadine [From Claritin] Allergy Hives Verified 10/19/18 05:36 Penicillins Allergy See Verified 10/19/18 05:36 Comments Procaine [From Novocain] Allergy See Verified 10/19/18 05:36 Comments propoxyphene [From Darvon] Allergy See Verified 10/19/18 05:36 Comments pseudoephedrine Allergy Hives Verified 10/19/18 05:36 [From Sudafed] ropinirole [From Requip] Allergy Hallucinati Verified 10/19/18 05:36 ng albuterol AdvReac Shakiness Verified 10/19/18 05:36 ceftriaxone [From Rocephin] AdvReac See Verified 10/19/18 05:36 Comments clindamycin AdvReac Hypotension Verified 10/19/18 05:36 codeine AdvReac Hypertensio Verified 10/19/18 05:36 n doxycycline AdvReac Confusion Verified 10/19/18 05:36 famotidine AdvReac See Verified 10/19/18 05:36 Comments hydrocodone AdvReac See Verified 10/19/18 05:36 Comments hydrocortisone AdvReac Hypertensio Verified 10/19/18 05:36 n ipratropium AdvReac See Verified 10/19/18 05:36 Comments methylprednisolone AdvReac Hypertensio Verified 10/19/18 05:36 [From Solu-Medrol] n Neomycin AdvReac See Verified 10/19/18 05:36 Comments NSAIDS (Non-Steroidal AdvReac See Verified 10/19/18 05:36 Anti-Inflamma Comments prednisone AdvReac Hypertensio Verified 10/19/18 05:36 n Sulfa (Sulfonamide AdvReac See Verified 10/19/18 05:36 Antibiotics) Comments terfenadine AdvReac See Verified 10/19/18 05:36 Comments tramadol AdvReac See Verified 10/19/18 05:36 Comments Certification: Further, I certify that my clinical findings support that this patient is ho mebound (i.e. absences from home require considerable and taxing effort and are for medical reasons or church services or infrequently or short duration when for other reasons) because: Homebound Reason: Leaving home requires considerable and taxing effort due to condition Attestation: My signature below is to certify that this patient is under my care and that I, or nurse practitioner, or a physician's graduate assistant working with me, has a [id number] encounter with this patient.
== END 2018-10-21 11:55 | disposition home or self-care (01) | DRG 291 ==
LOC: 2ANU 05:04 → EMEROOARM 05:04 → SUATTDRO 09:35 → 2ANU 10:00
PROVIDERS: ADMIT Student in an Organized Health Care Education/Training Program; ATTEND Family Medicine

== ENCOUNTER 2018-11-24 16:44 | Inpatient (IN) ==
[2018-11-24 18:47] LABS: Basophils % 0.3 %; Hemoglobin 8.5 g/dL (11.5-15.4)
[2018-11-24 18:49] LABS: Eosinophils # 0.2 K/mcL (0.0-0.6); Hematocrit 30.3 % (35.3-44.9); Immature Granulocytes % 0.6 % (0-4); Lymphocytes % 13.1 %; Mean Corpuscular HGB Conc 28.1 g/dL (31.6-35.5); Mean Corpuscular Hemoglobin 26.8 pg (28.0-33.3); Mean Corpuscular Volume 95.6 fL (83.0-100.0); Mean Platelet Volume 9.8 fL (9.4-12.4); Monocytes # 0.7 K/mcL (0.0-1.3); Monocytes % 8.5 %; Neutrophils # 5.9 K/mcL (1.6-8.9); Platelet Count 235 K/mcL (140-400); Red Blood Count 3.17 M/mcL (3.82-4.97); Red Cell Distribution Width 20.7 % (11.5-14.5); Segmented Neutrophils % 74.5 %; White Blood Count 7.9 K/mcL (4.3-11.1)
[2018-11-24 18:55] LABS: INR 1.2
[2018-11-24 18:58] LABS: Activated Partial Thrombo Time 33.2 Seconds (26.0-36.0)
[2018-11-24 19:07] LABS: Albumin/Globulin Ratio 0.7 (1.1-2.2); Bilirubin,Direct 0.1 mg/dL (0.0-0.2); Bilirubin,Indirect 0.4 mg/dL (0.0-1.2); Bilirubin,Total 0.5 mg/dL (0.3-1.0); Globulin 4.3 g/dL (2.4-3.5); Magnesium 1.5 mg/dL (1.6-2.6); Phosphorous 3.8 mg/dL (2.7-4.5); Potassium 3.4 mEq/L (3.5-5.1); Total Protein 7.3 g/dL (6.4-8.9)
[2018-11-24 19:13] LABS: Troponin I 0.05 ng/mL (< 0.04)
[2018-11-24 19:16] LABS: Anisocytosis 1+ (Not Present); Hypochromasia Present (Not Present); Platelet Estimate Normal (Normal)
[2018-11-24 20:19] LABS: Bilirubin,Urine Small (Negative); Blood,Urine Large (Negative); Clarity,Urine Cloudy (Clear); Color,Urine Dark Yellow (Yellow); Glucose,Urine (UA) 100 mg/dL (Normal); Ketones,Urine Negative (Negative); Leukocyte Esterase,Urine Moderate (Negative); Nitrite,Urine Negative (Negative); PH,Urine 5.5 pH Units (5.0-8.0); Protein,Urine >=1000 mg/dL (Neg-Trace); Specific Gravity,Urine 1.027 (1.010-1.025); Urobilinogen,Urine Normal (Normal)
[2018-11-24 20:23] LABS: Bacteria,Urine Many per hpf (None-Few); Hyaline Casts,Urine Few per lpf (None-Few); RBC,Urine 15-30 per hpf (0-3); Squamous Epithelial Cell,Urine Many per lpf (None-Few); WBC,Urine TNTC per hpf (0-3)
[2018-11-25] MEDS ORDERED: D5% in Water 1,000 ML IVC PRN (03:48)
[2018-11-25] MEDS ORDERED: Dextrose Gel 15 GM/37.5 ML TUBE PO PRN ×2 (03:48)
[2018-11-25] MEDS ORDERED: *HR* Dextrose 50 % in Water (Syg) 50 ML SYRINGE IVP PRN (03:48)
[2018-11-25] MEDS ORDERED: Naloxone 0.4 MG/ML INJ IVP PRN (03:48)
[2018-11-25] MEDS ORDERED: Albuterol 2.5 MG/3 ML NEBULIZER IH PRN (03:53)
[2018-11-25] MEDS: Insulin LISPRO 300 UNITS/3 ML VIAL SQ SCH ×3 (05:47→18:23)
[2018-11-25 06:19] LABS: Basophils % 0.3 %; Hemoglobin 7.2 g/dL (11.5-15.4); Mean Platelet Volume 9.9 fL (9.4-12.4)
[2018-11-25 06:20] LABS: Eosinophils # 0.2 K/mcL (0.0-0.6); Eosinophils % 3.1 %; Hematocrit 25.5 % (35.3-44.9); Immature Granulocytes % 0.5 % (0-4); Immature Reticulocyte % 31.7 % (11.0-38.0); Lymphocytes % 16.9 %; Mean Corpuscular HGB Conc 28.2 g/dL (31.6-35.5); Mean Corpuscular Volume 95.5 fL (83.0-100.0); Monocytes # 0.6 K/mcL (0.0-1.3); Neutrophils # 4.2 K/mcL (1.6-8.9); Platelet Count 199 K/mcL (140-400); Red Blood Count 2.67 M/mcL (3.82-4.97); Red Cell Distribution Width 20.6 % (11.5-14.5); Retculocyte # 0.12 M/mcL (0.05-0.10); Reticulocyte % 4.3 % (1.6-2.8); Segmented Neutrophils % 69.2 %; White Blood Count 6.1 K/mcL (4.3-11.1)
[2018-11-25 06:22] LABS: INR 1.3
[2018-11-25 06:43] LABS: Albumin 2.5 g/dL (3.5-5.7); Albumin/Globulin Ratio 0.7 (1.1-2.2); Bilirubin,Total 0.4 mg/dL (0.3-1.0); Calcium 7.7 mg/dL (8.6-10.3); Chol/HDL Ratio 3.9 (0-4.9); Globulin 3.6 g/dL (2.4-3.5); Magnesium 1.5 mg/dL (1.6-2.6); Phosphorous 3.6 mg/dL (2.7-4.5); Potassium 3.5 mEq/L (3.5-5.1); Total Protein 6.1 g/dL (6.4-8.9)
[2018-11-25 06:46] LABS: Troponin I 0.05 ng/mL (< 0.04)
[2018-11-25 06:55] LABS: Thyroid Stimulating Hormone 3.661 mcIU/mL (0.340-5.600)
[2018-11-25 07:29] LABS: Anisocytosis 1+ (Not Present)
[2018-11-25 07:31] LABS: Polychromasia 1+ (Not Present)
[2018-11-25] MEDS: Budesonide/Formoterol 160/4.5 1 PUFF INH IH SCH ×2 (08:17→20:27)
[2018-11-25] MEDS ORDERED: levoFLOXacin 750 MG/150 ML 750 MG/150 ML BAG IVPB SCH (09:00)
[2018-11-25] MEDS ORDERED: Vancomycin 1 EACH in 0.9 % Sodium Chloride 250 ML IVPB PRN (09:00)
[2018-11-25 09:26] LABS: Estimated Average Glucose 154 mg/dl
[2018-11-25] MEDS ORDERED: levoFLOXacin 750 MG/150 ML 750 MG/150 ML BAG IVPB ONE (09:38)
[2018-11-25] MEDS: Apixaban 5 MG TABLET PO SCH ×2 (10:12→21:19)
[2018-11-25] MEDS: Metoprolol XL (24 HR) Succ 25 MG TAB.ER.24H PO SCH (12:21)
[2018-11-25] MEDS ORDERED: Nitroglycerin 0.4 MG TAB.SUBL SL PRN (13:45)
[2018-11-25] MEDS: Gentamicin Oint 15 GM TUBE TP SCH (19:00)
[2018-11-25] MEDS: clonazePAM 1 MG TABLET PO SCH (21:19)
[2018-11-25] MEDS: Insulin DETEMIR 100 UNIT/ML X5UNITS SQ SCH (21:19)
[2018-11-25] MEDS: amLODIPine 5 MG TABLET PO SCH (21:19)
[2018-11-26] MEDS ORDERED: Nystatin POWDER 30 GM BOTTLE TP PRN (01:49)
[2018-11-26 06:13] LABS: Basophils % 0.4 %; Hemoglobin 7.2 g/dL (11.5-15.4); Immature Granulocytes % 0.4 % (0-4); Mean Corpuscular Volume 96.6 fL (83.0-100.0)
[2018-11-26 06:15] LABS: Eosinophils # 0.2 K/mcL (0.0-0.6); Eosinophils % 4.2 %; Hematocrit 25.8 % (35.3-44.9); Lymphocytes # 1.1 K/mcL (0.6-4.6); Lymphocytes % 19.8 %; Mean Corpuscular HGB Conc 27.9 g/dL (31.6-35.5); Monocytes # 0.6 K/mcL (0.0-1.3); Monocytes % 10.9 %; Neutrophils # 3.4 K/mcL (1.6-8.9); Platelet Count 198 K/mcL (140-400); Red Blood Count 2.67 M/mcL (3.82-4.97); Red Cell Distribution Width 20.7 % (11.5-14.5); Segmented Neutrophils % 64.3 %; White Blood Count 5.3 K/mcL (4.3-11.1)
[2018-11-26 07:11] LABS: Hypochromasia Present (Not Present); Platelet Estimate Normal (Normal)
[2018-11-26 07:12] LABS: Anisocytosis 1+ (Not Present); Poikilocytosis 1+ (Not Present)
[2018-11-26 07:34] LABS: Albumin 2.6 g/dL (3.5-5.7); Albumin/Globulin Ratio 0.7 (1.1-2.2); Bilirubin,Total 0.4 mg/dL (0.3-1.0); Calcium 8.1 mg/dL (8.6-10.3); Globulin 3.7 g/dL (2.4-3.5); Potassium 3.7 mEq/L (3.5-5.1); Total Protein 6.3 g/dL (6.4-8.9)
[2018-11-26] MEDS: Budesonide/Formoterol 160/4.5 1 PUFF INH IH SCH ×2 (07:38→20:17)
[2018-11-26] MEDS ORDERED: 0.9 % Sodium Chloride 250 ML IVC SCH (07:45)
[2018-11-26] MEDS ORDERED: 0.9 % Sodium Chloride 1,000 ML ONE (07:58)
[2018-11-26] MEDS: Insulin LISPRO 300 UNITS/3 ML VIAL SQ SCH ×3 (08:24→17:08)
[2018-11-26] MEDS: Apixaban 5 MG TABLET PO SCH ×2 (08:27→22:23)
[2018-11-26] MEDS: Insulin DETEMIR 100 UNIT/ML X5UNITS SQ SCH ×2 (08:30→22:26)
[2018-11-26] MEDS ORDERED: 0.9 % Sodium Chloride 250 ML IVC PRN (09:11)
[2018-11-26] MEDS ORDERED: 0.9 % Sodium Chloride 1,000 ML PRIME SCH (09:15)
[2018-11-26] MEDS ORDERED: Vancomycin 500 MG in 0.9 % Sodium Chloride Mini Bag 100 ML IVPB ONE ×2 (11:02→16:00)
[2018-11-26] MEDS: hydrALAZINE 25 MG TABLET PO SCH ×2 (12:01→15:52)
[2018-11-26 15:03] LABS: Basophils % 0.4 %; Eosinophils # 0.2 K/mcL (0.0-0.6); Eosinophils % 3.4 %; Hematocrit 30.9 % (35.3-44.9); Immature Granulocytes % 0.5 % (0-4); Lymphocytes # 0.9 K/mcL (0.6-4.6); Lymphocytes % 15.1 %; Mean Corpuscular HGB Conc 29.8 g/dL (31.6-35.5); Mean Corpuscular Volume 93.9 fL (83.0-100.0); Mean Platelet Volume 9.7 fL (9.4-12.4); Monocytes # 0.5 K/mcL (0.0-1.3); Neutrophils # 4.1 K/mcL (1.6-8.9); Platelet Count 224 K/mcL (140-400); Red Blood Count 3.29 M/mcL (3.82-4.97); Red Cell Distribution Width 19.9 % (11.5-14.5); Segmented Neutrophils % 72.6 %; White Blood Count 5.6 K/mcL (4.3-11.1)
[2018-11-26 15:04] LABS: Hemoglobin 9.2 g/dL (11.5-15.4)
[2018-11-26] MEDS: Gentamicin Oint 15 GM TUBE TP SCH (15:30)
[2018-11-26] MEDS: MetroNIDAZOLE 500 MG/100 ML 500 MG/100 ML BAG IVPB SCH (15:42)
[2018-11-26] MEDS: Metoprolol XL (24 HR) Succ 25 MG TAB.ER.24H PO SCH (15:42)
[2018-11-26] MEDS: amLODIPine 5 MG TABLET PO SCH (22:24)
[2018-11-26] MEDS: clonazePAM 1 MG TABLET PO SCH (22:26)
[2018-11-27] MEDS: MetroNIDAZOLE 500 MG/100 ML 500 MG/100 ML BAG IVPB SCH ×3 (00:07→16:36)
[2018-11-27] MEDS: hydrALAZINE 25 MG TABLET PO SCH ×3 (00:12→16:37)
[2018-11-27] MEDS: Gentamicin Oint 15 GM TUBE TP SCH ×2 (00:12→18:18)
[2018-11-27 05:39] LABS: Basophils % 0.4 %; Eosinophils # 0.2 K/mcL (0.0-0.6); Eosinophils % 3.8 %; Hematocrit 28.6 % (35.3-44.9); Hemoglobin 8.5 g/dL (11.5-15.4); Immature Granulocytes % 0.4 % (0-4); Lymphocytes # 0.8 K/mcL (0.6-4.6); Lymphocytes % 14.2 %; Mean Corpuscular HGB Conc 29.7 g/dL (31.6-35.5); Mean Corpuscular Hemoglobin 27.8 pg (28.0-33.3); Mean Corpuscular Volume 93.5 fL (83.0-100.0); Mean Platelet Volume 9.9 fL (9.4-12.4); Monocytes # 0.5 K/mcL (0.0-1.3); Monocytes % 9.7 %; Platelet Count 208 K/mcL (140-400); Red Blood Count 3.06 M/mcL (3.82-4.97); Red Cell Distribution Width 19.9 % (11.5-14.5); Segmented Neutrophils % 71.5 %; White Blood Count 5.6 K/mcL (4.3-11.1)
[2018-11-27 05:57] LABS: Calcium 8.4 mg/dL (8.6-10.3); Magnesium 1.7 mg/dL (1.6-2.6); Phosphorous 3.4 mg/dL (2.7-4.5); Potassium 3.5 mEq/L (3.5-5.1)
[2018-11-27] MEDS: Budesonide/Formoterol 160/4.5 1 PUFF INH IH SCH ×2 (07:37→20:49)
[2018-11-27] MEDS ORDERED: 0.9 % Sodium Chloride 250 ML IVC PRN (08:36)
[2018-11-27] MEDS: Insulin LISPRO 300 UNITS/3 ML VIAL SQ SCH ×3 (08:36→18:19)
[2018-11-27] MEDS: Apixaban 5 MG TABLET PO SCH ×2 (08:38→21:00)
[2018-11-27] MEDS: Metoprolol XL (24 HR) Succ 25 MG TAB.ER.24H PO SCH (08:38)
[2018-11-27] MEDS: Insulin DETEMIR 100 UNIT/ML X5UNITS SQ SCH ×2 (08:39→21:01)
[2018-11-27] MEDS ORDERED: 0.9 % Sodium Chloride 1,000 ML PRIME SCH (08:45)
[2018-11-27] MEDS ORDERED: levoFLOXacin 500 MG TABLET PO SCH (09:00)
[2018-11-27] MEDS ORDERED: levoFLOXacin 500 MG/100 ML 500 MG/100 ML BAG IVPB SCH (09:00)
[2018-11-27] MEDS: levoFLOXacin 500 MG/100 ML 500 MG/100 ML BAG IVPB SCH (12:17)
[2018-11-27] MEDS ORDERED: Vancomycin 500 MG in 0.9 % Sodium Chloride Mini Bag 100 ML IVPB ONE (17:00)
[2018-11-27] MEDS: clonazePAM 1 MG TABLET PO SCH (21:00)
[2018-11-27] MEDS: amLODIPine 5 MG TABLET PO SCH (21:00)
[2018-11-28] MEDS: hydrALAZINE 25 MG TABLET PO SCH ×4 (00:17→23:17)
[2018-11-28] MEDS: MetroNIDAZOLE 500 MG/100 ML 500 MG/100 ML BAG IVPB SCH ×4 (00:17→23:17)
[2018-11-28 05:42] LABS: Mean Platelet Volume 9.4 fL (9.4-12.4)
[2018-11-28 05:43] LABS: Basophils % 0.8 %; Eosinophils # 0.3 K/mcL (0.0-0.6); Eosinophils % 5.1 %; Hematocrit 26.7 % (35.3-44.9); Immature Granulocytes % 0.2 % (0-4); Lymphocytes # 0.9 K/mcL (0.6-4.6); Lymphocytes % 16.8 %; Mean Corpuscular Hemoglobin 27.9 pg (28.0-33.3); Monocytes # 0.5 K/mcL (0.0-1.3); Monocytes % 9.7 %; Neutrophils # 3.4 K/mcL (1.6-8.9); Platelet Count 213 K/mcL (140-400); Red Blood Count 2.87 M/mcL (3.82-4.97); Segmented Neutrophils % 67.4 %; White Blood Count 5.1 K/mcL (4.3-11.1)
[2018-11-28 06:05] LABS: Calcium 8.1 mg/dL (8.6-10.3); Magnesium 1.6 mg/dL (1.6-2.6); Potassium 3.5 mEq/L (3.5-5.1)
[2018-11-28 06:37] LABS: Hypochromasia Present (Not Present); Platelet Estimate Normal (Normal)
[2018-11-28] MEDS ORDERED: 0.9 % Sodium Chloride 250 ML IVC PRN (07:12)
[2018-11-28] MEDS ORDERED: 0.9 % Sodium Chloride 1,000 ML PRIME SCH (07:15)
[2018-11-28] MEDS: Budesonide/Formoterol 160/4.5 1 PUFF INH IH SCH ×2 (08:13→20:38)
[2018-11-28] MEDS: Metoprolol XL (24 HR) Succ 25 MG TAB.ER.24H PO SCH (09:11)
[2018-11-28] MEDS: Apixaban 5 MG TABLET PO SCH ×2 (09:11→21:09)
[2018-11-28] MEDS: Insulin LISPRO 300 UNITS/3 ML VIAL SQ SCH ×3 (09:25→16:20)
[2018-11-28] MEDS: Insulin DETEMIR 100 UNIT/ML X5UNITS SQ SCH ×2 (09:32→21:09)
[2018-11-28] MEDS: Gentamicin Oint 15 GM TUBE TP SCH (19:00)
[2018-11-28] MEDS: amLODIPine 5 MG TABLET PO SCH (21:09)
[2018-11-28] MEDS: clonazePAM 1 MG TABLET PO SCH (21:09)
[2018-11-29 06:16] LABS: Magnesium 1.6 mg/dL (1.6-2.6); Phosphorous 2.8 mg/dL (2.7-4.5)
[2018-11-29] MEDS ORDERED: Vancomycin 500 MG in 0.9 % Sodium Chloride Mini Bag 100 ML IVPB ONE (07:00)
[2018-11-29] MEDS: Budesonide/Formoterol 160/4.5 1 PUFF INH IH SCH ×2 (07:55→22:28)
[2018-11-29 08:32] LABS: Hepatitis B Surface Antigen Nonreactive (Nonreactive)
[2018-11-29] MEDS: levoFLOXacin 500 MG/100 ML 500 MG/100 ML BAG IVPB SCH (09:05)
[2018-11-29] MEDS: MetroNIDAZOLE 500 MG/100 ML 500 MG/100 ML BAG IVPB SCH ×2 (09:05→17:35)
[2018-11-29] MEDS: Metoprolol XL (24 HR) Succ 25 MG TAB.ER.24H PO SCH (09:06)
[2018-11-29] MEDS: hydrALAZINE 25 MG TABLET PO SCH ×2 (09:06→17:35)
[2018-11-29] MEDS: Apixaban 5 MG TABLET PO SCH ×2 (09:06→21:57)
[2018-11-29] MEDS: Insulin DETEMIR 100 UNIT/ML X5UNITS SQ SCH ×2 (09:08→22:29)
[2018-11-29] MEDS: Insulin LISPRO 300 UNITS/3 ML VIAL SQ SCH ×3 (09:08→17:52)
[2018-11-29] MEDS: Gentamicin Oint 15 GM TUBE TP SCH (18:37)
[2018-11-29] MEDS: clonazePAM 1 MG TABLET PO SCH (21:57)
[2018-11-29] MEDS: amLODIPine 5 MG TABLET PO SCH (21:57)
[2018-11-30] MEDS: hydrALAZINE 25 MG TABLET PO SCH ×2 (00:34→08:30)
[2018-11-30] MEDS: MetroNIDAZOLE 500 MG/100 ML 500 MG/100 ML BAG IVPB SCH ×2 (00:35→08:29)
[2018-11-30 01:04] LABS: Basophils % 0.6 %; Eosinophils # 0.2 K/mcL (0.0-0.6); Eosinophils % 3.9 %; Hematocrit 27.3 % (35.3-44.9); Hemoglobin 8.2 g/dL (11.5-15.4); Immature Granulocytes % 0.4 % (0-4); Lymphocytes # 0.9 K/mcL (0.6-4.6); Lymphocytes % 19.2 %; Mean Corpuscular Hemoglobin 27.9 pg (28.0-33.3); Mean Corpuscular Volume 92.9 fL (83.0-100.0); Mean Platelet Volume 9.9 fL (9.4-12.4); Monocytes # 0.5 K/mcL (0.0-1.3); Monocytes % 10.1 %; Neutrophils # 3.2 K/mcL (1.6-8.9); Platelet Count 247 K/mcL (140-400); Red Blood Count 2.94 M/mcL (3.82-4.97); Segmented Neutrophils % 65.8 %; White Blood Count 4.8 K/mcL (4.3-11.1)
[2018-11-30 01:21] LABS: Calcium 8.2 mg/dL (8.6-10.3); Magnesium 1.7 mg/dL (1.6-2.6); Phosphorous 4.3 mg/dL (2.7-4.5); Potassium 3.7 mEq/L (3.5-5.1)
[2018-11-30] MEDS ORDERED: Vancomycin 500 MG in 0.9 % Sodium Chloride Mini Bag 100 ML IVPB ONE (06:00)
[2018-11-30] MEDS: Insulin LISPRO 300 UNITS/3 ML VIAL SQ SCH ×2 (08:28→11:37)
[2018-11-30] MEDS: Insulin DETEMIR 100 UNIT/ML X5UNITS SQ SCH (08:29)
[2018-11-30] MEDS: Apixaban 5 MG TABLET PO SCH (08:30)
[2018-11-30] MEDS: Metoprolol XL (24 HR) Succ 25 MG TAB.ER.24H PO SCH (08:30)
[2018-11-30] MEDS: Budesonide/Formoterol 160/4.5 1 PUFF INH IH SCH (08:51)
[2018-11-30] MEDS ORDERED: EPOETIN ALFA-EPBX 10,000 UNIT/ML VIAL SQ SCH (09:00)
[2018-11-30 10:37] VITALS: BP 103/53
[2018-11-30] MEDS ORDERED: Aminoglycoside Consult 1 EACH MC ONE (16:18)
== END 2018-11-30 16:19 | disposition home health service (06) | DRG 602 ==
LOC: EMEROOARM 16:44 → 2ANU 16:44 → SUATTDRO 22:53 → 2ANU 23:24
PROVIDERS: ADMIT Family Medicine; ATTEND Internal Medicine